=== PATIENT | male | born 1950 | race Caucasian/White ===

== ENCOUNTER → 2020-10-29 11:38 | Outpatient (CLI) | payer MEDICARE, OTHER, SELFPAY ==
[2016-10-31 13:42] VITALS: BMI 30.7
--- NOTE | 2020-10-29 11:48 | RAD_ITS ---
STUDY: X-RAY CHEST REASON FOR EXAM: Male, 69 years old. BRONCHITIS TECHNIQUE: PA and lateral views of the chest. COMPARISON: Comparison is made with prior study dated 03/20/2012. FINDINGS: Hyperinflation. Decreased bronchovascular markings suggestive of a emphysematous change. There is no demonstrated pleural abnormality. Normal size heart. Normal mediastinum and ulises. Normal visualized pulmonary arteries. There is atherosclerotic tortuosity of the aortic arch and descending thoracic aorta. There are diffuse degenerative changes of the visualized thoracic spine. Normal visualized ribs, clavicles, and shoulders. There is no demonstrated abnormality of the visualized soft tissue structures of the upper abdomen. RAD/Chest PA and Lateral IMPRESSION: Hyperinflation. Decreased bilateral bronchovascular markings in keeping with emphysematous changes. Electronically Signed: Serg Miranda MD at 15:20 EST , Service support ,
[2020-10-29 15:08] LABS: Absolute Lymphocyte Count 1.72 X10^3/uL (0.83-4.51); Absolute Neutrophil Count 5.3 X10^3/uL (2.0-7.7); Basophil# 0.04 X10^3/uL; Basophil% 0.5 % (0-1); Eosinophil# 0.13 X10^3/uL; Eosinophils% 1.7 % (0-5); Hematocrit 41.9 % (40-54); Lymphocyte # 1.72 X10^3/ul (4.0); Lymphocyte % 22.1 % (19-41); Mean Corpuscular Hgb 25.9 pg (27.0-32.0); Mean Corpuscular Volume 83.5 fL (80-94); Monocyte# 0.56 X10^3/uL; Monocyte% 7.2 % (0-10); NRBC Flagged by Analyzer 0 % (0-5); Neutrophil # 5.28 X10^3/uL (2.7-7.7); Neutrophil % 67.7 % (47-70); Platelet Count 231 K/mm3 (150-450); RBC Distribution Width SD 42.5 fl (35.1-43.9); Red Blood Count 5.02 M/mm3 (4.6-6.2); White Blood Count 7.8 K/mm3 (4.4-11.0)
[2020-10-29 15:57] LABS: ALB/GLOB Ratio 1.1 RATIO (0.9-2.4); AST(SGOT) 23 U/L (15-37); Alanine Aminotransfer ALT/SGPT 29 U/L (16-61); Albumin, Serum 3.9 g/dL (3.2-5.0); Alkaline Phosphatase 84 U/L (45-117); Anion Gap 7 (5-15); BUN 12 mg/dL (7-18); BUN/Creat Ratio 12.3 RATIO (10-20); Calcium,Total 9.3 mg/dL (8.5-10.1); Chloride 107 mmol/L (98-107); Cholesterol 139 mg/dL (200); Creatinine, Serum 0.98 mg/dL (0.70-1.30); EST Glomerular Filtration Rate 81 mL/min (>60); Est Glom Filt Rate - Afr Amer 97 mL/min (>60); Globulin 3.5 g/dL (2.2-4.2); Glucose 102 mg/dL (74-106); High Density Lipoprotein 59 mg/dL; Potassium 4.2 mmol/L (3.5-5.1); Protein, Total 7.4 g/dL (6.4-8.2); Sodium Level 140 mmol/L (136-145); Triglycerides 64 mg/dL; Very Low Density Lipoprotein 13 mg/dL (5-40)
== END ==
PROVIDERS: PCP Family Medicine; Referring Provider Family Medicine; Visit Provider Family Medicine
DX: J40 Bronchitis, not specified as acute or chronic (principal); J44.9 Chronic obstructive pulmonary disease, unspecified; E66.9 Obesity, unspecified; Z13.1 Encounter for screening for diabetes mellitus
CPT/HCPCS: 36415; 71046; 80053; 80061; 85025

== ENCOUNTER → 2020-12-15 | Outpatient (CLI) | payer MEDICARE, OTHER, SELFPAY ==
[2016-10-31 13:42] VITALS: BMI 30.7
== END | disposition home or self-care (01) ==
LOC: LABSPEC 09:53
PROVIDERS: PCP Family Medicine; Referring Provider Internal Medicine Pulmonary Disease; Visit Provider Internal Medicine Pulmonary Disease
DX: R05 Cough (principal)
CPT/HCPCS: 87070; 87205

== ENCOUNTER → 2021-01-26 16:23 | Outpatient (CLI) | payer MEDICARE, OTHER, SELFPAY ==
--- NOTE | 2021-01-26 16:32 | CT_ITS ---
STUDY: CT CHEST WITHOUT CONTRAST REASON FOR EXAM: Male, 70 years old. COUGH RADIATION DOSAGE (If Supplied By Facility): CTDIvol = ( 18.80 ) mGy, DLP = ( 725.60 ) mGycm TECHNIQUE: Transaxial imaging was performed without the administration of intravenous contrast material. Individualized dose optimization techniques were used for this CT. COMPARISON: None. FINDINGS: Mild sinus changes with some subpleural scarring in the lung bases. Some bibasilar cylindrical bronchiectasis. No noncalcified nodule or mass. There is no demonstrated pleural abnormality. Normal heart and pericardium. Normal mediastinum. Normal hilar regions. Normal unenhanced pulmonary arteries. Normal aorta arch and descending thoracic aorta. Normal osseous structures. There is no demonstrated abnormality of the visualized upper abdomen. CT/Chest without Contrast IMPRESSION: Mild emphysema with scarring and mild cylindrical bronchiectasis but no pneumonia or atelectasis. Electronically Signed: Bruce Blevins MD at 16:53 EDT Tel , Service support ,
== END ==
PROVIDERS: PCP Family Medicine; Referring Provider Internal Medicine Pulmonary Disease; Visit Provider Internal Medicine Pulmonary Disease
DX: R05 Cough (principal)
CPT/HCPCS: 71250

== ENCOUNTER → 2021-02-19 | Outpatient (CLI) | payer MEDICARE, OTHER, SELFPAY | END | disposition home or self-care (01) | LOC: LABSPEC 14:21 | PROVIDERS: PCP Family Medicine; Referring Provider Internal Medicine Pulmonary Disease; Visit Provider Internal Medicine Pulmonary Disease | DX: J47.9 Bronchiectasis, uncomplicated (principal) | CPT/HCPCS: 87070; 87077; 87186; 87205 ==

== ENCOUNTER → 2021-04-14 | Outpatient (CLI) | payer MEDICARE, OTHER, SELFPAY | END | disposition home or self-care (01) | LOC: LABSPEC 17:01 | PROVIDERS: PCP Family Medicine; Visit Provider Internal Medicine Pulmonary Disease | DX: J47.9 Bronchiectasis, uncomplicated (principal) | CPT/HCPCS: 87070; 87077; 87186; 87205 ==

== ENCOUNTER → 2021-05-12 | Outpatient (CLI) | payer MEDICARE, OTHER, SELFPAY | END | disposition home or self-care (01) | LOC: LABSPEC 13:31 | PROVIDERS: PCP Family Medicine; Visit Provider Internal Medicine Pulmonary Disease | DX: J47.9 Bronchiectasis, uncomplicated (principal) | CPT/HCPCS: 87070; 87101; 87205 ==

== ENCOUNTER → 2021-05-31 | Outpatient (CLI) | payer MEDICARE, OTHER, SELFPAY | END | disposition home or self-care (01) | LOC: LABSPEC 17:02 | PROVIDERS: PCP Family Medicine; Referring Provider Family Medicine; Visit Provider Family Medicine | DX: U07.1 COVID-19 (principal) | CPT/HCPCS: 87635; U0005; U0003 ==

== ENCOUNTER 2021-06-02 10:48 | Outpatient (CLI) | payer MEDICARE, OTHER, SELFPAY ==
[2021-06-02 11:04] VITALS: BP 143/77; PULSE 71; RESP 18; TEMP 37.3; O2SAT 97; BMI 31.1
[2021-06-02] MEDS: 0.9% Saline Lock 10 ML Syringe IV (11:11)
[2021-06-02 11:45] VITALS: BP 137/77; PULSE 74; RESP 18; TEMP 37.6; O2SAT 98
[2021-06-02 12:45] VITALS: BP 119/83; PULSE 69; RESP 16; TEMP 38.1; O2SAT 97
== END 2021-06-02 12:45 | disposition home or self-care (01) ==
LOC: MS3OUT 10:49 → MS3 10:49
PROVIDERS: PCP Family Medicine; Referring Provider Nurse Practitioner Adult Health; Visit Provider Nurse Practitioner Adult Health
DX: Z23 Encounter for immunization (principal); U07.1 COVID-19
CPT/HCPCS: J7050; M0243; A4216; Q0244

== ENCOUNTER 2021-06-11 16:45 | Inpatient (IN) | payer MEDICARE, OTHER, SELFPAY ==
[2021-06-11] VITALS (10 sets, daily range): BP systolic 126–171; BP diastolic 92–108; PULSE 72–99; RESP 18–20; TEMP 35.3–36.8; O2SAT 88–96; BMI 32.1; BMI 30.1
[2021-06-11 19:10] LABS: Absolute Lymphocyte Count 1.16 X10^3/uL (0.83-4.51); Absolute Neutrophil Count 5.3 X10^3/uL (2.0-7.7); Basophil# 0.02 X10^3/uL; Basophil% 0.3 % (0-1); Eosinophil# 0.09 X10^3/uL; Eosinophils% 1.2 % (0-5); Hemoglobin 12.6 g/dL (13.0-16.5); Lymphocyte # 1.16 X10^3/ul (0.83-4.51); Lymphocyte % 15.8 % (19-41); Mean Corp Hgb Conc 33.2 g/dL (32-36); Mean Corpuscular Hgb 26.6 pg (27.0-32.0); Mean Corpuscular Volume 80.2 fL (80-94); Mean Platelet Vol. 9.5 fl (6.2-12.0); Monocyte# 0.71 X10^3/uL; Monocyte% 9.7 % (0-10); NRBC Flagged by Analyzer 0 % (0-5); Neutrophil # 5.33 X10^3/uL (2.7-7.7); Neutrophil % 72.5 % (47-70); Platelet Count 253 K/mm3 (150-450); RBC Distribution Width CV 13.3 % (11.6-14.6); RBC Distribution Width SD 38.5 fl (35.1-43.9); Red Blood Count 4.74 M/mm3 (4.6-6.2); White Blood Count 7.4 K/mm3 (4.4-11.0)
--- NOTE | 2021-06-11 19:15 | RAD_ITS ---
STUDY: X-RAY CHEST REASON FOR EXAM: Male, 70 years old. CHEST PAIN cough TECHNIQUE: XR Chest 1 View COMPARISON: 10/29/2020 FINDINGS: There is no demonstrated pleural abnormality. There is bilateral infiltrate. Normal size heart. Normal mediastinum and ulises. Normal visualized pulmonary arteries. There is atherosclerotic calcification of the aortic arch with tortuosity. There are diffuse degenerative changes of the visualized thoracic spine. There is degenerative osteoarthritis of the bilateral shoulders. There is no demonstrated abnormality of the visualized soft tissue structures of the upper abdomen. RAD/Chest 1 View (Portable) IMPRESSION: Bilateral pneumonia. Electronically Signed: Americo Levine MD at 20:22 EDT , Service support ,
[2021-06-11 19:27] LABS: ALB/GLOB Ratio 0.8 RATIO (0.9-2.4); AST(SGOT) 36 U/L (15-37); Alanine Aminotransfer ALT/SGPT 56 U/L (16-61); Albumin, Serum 3.1 g/dL (3.2-5.0); Alkaline Phosphatase 84 U/L (45-117); Anion Gap 6 (5-15); BUN 18 mg/dL (7-18); BUN/Creat Ratio 20.2 RATIO (10-20); Calcium,Total 9.1 mg/dL (8.5-10.1); Chloride 108 mmol/L (98-107); Creatinine, Serum 0.89 mg/dL (0.70-1.30); EST Glomerular Filtration Rate 89 mL/min (>60); Est Glom Filt Rate - Afr Amer 108 mL/min (>60); Estimated Creatinine Clearance 81.08 ml/min; Globulin 3.9 g/dL (2.2-4.2); Glucose 103 mg/dL (74-106); Potassium 3.9 mmol/L (3.5-5.1); Sodium Level 139 mmol/L (136-145); Troponin-I HS 112 pg/mL (3.0-78.0)
[2021-06-11 19:47] LABS: D-Dimer Quantitative (DVT/PE) 15.13 FEU/ug/m (0.27-0.49)
--- NOTE | 2021-06-11 19:47 | EX.ED.DYSGE1 ---
HPI History of Present Illness Chief Complaint: General Illness Narrative Narrative: 70-year-old male presenting with shortness of breath. He is day 14 of COVID-19. He has had a monoclonal antibodies as well. The patient has been experiencing pulse ox is down into the 90s. Patient states initially he was bouncing back right away but over the course of the day he is noted that his pulse ox has been going down to 90 and then staying down. With rest he does recover. Patient has not been on any steroids. Patient denies chest pain. He does admit to a cough and shortness of breath. He no longer has fever, chills, body aches. He does admit to some diarrhea but is sporadic. He denies constipation. No urinary symptoms. [facility] Medical History (Updated 06/11/21 @ 22:[address] Giovanni English MD) Bronchiectasis Home Medications Severe Cold and Flu (PE) 355 ml PO PRN PRN 10/19/16 [History Last Taken Unknown] albuterol sulfate [Proventil HFA] 1 - 2 puff IH DAILY 10/19/16 [History Last Taken Unknown] budesonide-formoterol [Symbicort] 1 puff INHALATION BID 10/19/16 [History Last Taken 10/31/16 07:00] cyanocobalamin (vitamin B-12) 1,000 mcg PO DAILY 10/19/16 [History Last Taken Unknown] aspirin 325 mg PO BIDCM #60 tablet 11/02/16 [Rx Last Taken Unknown] Allergy/AdvReac Type Severity Reaction Status Date / Time gabapentin Allergy Rash Verified 10/19/16 15:09 Family History (Updated 06/11/21 @ 22:[address] Giovanni English MD) Other Colon cancer Heart disease Surgical History History of hip surgery Social History Smoking Status: Former smoker ROS ROS ED Constitutional Constitutional ED: Denies chills or fever(s) Eyes Eyes: Denies blurry vision or diplopia ENT ENT ED: Denies rhinorrhea or sore throat Cardiovascular Cardiovascular: Denies chest pain or palpitations Respiratory/Chest Respiratory/Chest: Reports cough, dyspnea and dyspnea on exertion Gastrointestinal Gastrointestinal: Reports diarrhea; Denies abdominal pain, nausea or vomiting Genitourinary Genitourinary ED: Denies dysuria or hematuria Musculoskeletal Musculoskeletal: Denies arthralgias or myalgias Integumentary Denies Abrasions or rash Neurologic Neurologic: Denies headache(s) or paresthesias EXAM Physical Exam Const Vital Signs: 06/11/21 16:49 06/11/21 16:53 06/11/21 18:50 Temperature 97.7 F L 97.7 F L 97 F L Temperature Source Temporal Temporal Temporal Pulse Rate 99 99 80 Respiratory Rate 18 18 20 H Respiratory Effort Short of Breath Respiratory Pattern Tachypnea Blood Pressure 140/105 H 140/105 H 169/99 H Blood Pressure Mean 116 116 122 Pulse Ox 91 91 94 Oxygen Delivery Method Room Air Room Air Nasal Cannula Oxygen Flow Rate (L/min) 2 06/11/21 19:00 06/11/21 20:20 Temperature 98.2 F Temperature Source Temporal Pulse Rate 72 Respiratory Rate 18 Respiratory Effort Respiratory Pattern Blood Pressure 171/99 H Blood Pressure Mean 123 Pulse Ox 88 93 Oxygen Delivery Method Room Air Nasal Cannula Oxygen Flow Rate (L/min) 2 Positive well nourished General Appearance ED: NAD; Negative for pallor HEENT Negative for trauma Eyes PERRL and EOMs intact bilaterally Neck no lymphadenopathy and supple Resp normal respiratory effort Auscultation: rales diffuse Cardio regular rate and regular rhythm Extremity normal to inspection General Extremety ED: Negative for tenderness Neuro oriented x3 and CN's II-XII intact bilaterally Sensorium / Orientation: alert Psych mental status grossly normal Skin General Skin Exam: Negative for jaundice or pallor MDM MDM MDM Narrative Medical decision making narrative: Patient presenting on day 14 of COVID-19 pneumonia. Patient states that he has been dropping to about 90. He is having difficulty recovering. Today he dropped to 89% on room air. He has not required oxygen previously. Patient states that he does have a lot of dyspnea on exertion but is not complaining of chest pain. EKG on my interpretation shows normal sinus rhythm at a ventricular of 69 bpm without signs of ischemic change. Chest x-ray on my interpretation shows bilateral pneumonia and the radiologist does agree. CBC shows no leukocytosis of his white blood cell count of 7.4. Hemoglobin hematocrit are stable. Platelets 253. Renal function and electrolytes are normal. LFTs are normal. Troponin although not 120 is 112. I obtained a D-dimer which was also 15.13. For this reason he had a CTA of the chest which shows bilateral pulmonary emboli without a saddle embolus. Patient was able to ambulate and not desaturate on oxygen at 2 L but did become symptomatic and was tachycardic into the 120s. Nursing reports that he looked unsteady. I did do a delta troponin and since he has been on oxygen resting it has come down to 99. His BNP is elevated at 146.3. I discussed the case with Dr. Lilly out of concern for heart strain and he did recommend that we at least bring the patient in for an echocardiogram. He was started on Eliquis in the ER. He was given dexamethasone as well. All results and testing were explained to he and his daughter and they are comfortable with being admitted. Impression: 1. History of COVID-19 pneumonitis 2. Bilateral pulmonary emboli 3. Hypoxic respiratory failure Lab Data Labs: Laboratory Results - last 24 hr 06/11/21 06/11/21 06/11/21 18:57 18:57 18:57 WBC 7.4 RBC 4.74 Hgb 12.6 L Hct 38.0 L MCV 80.2 MCH 26.6 L MCHC 33.2 RDW Std Deviation 38.5 RDW Coeff of Farhan 13.3 Plt Count 253 MPV 9.5 Immature Gran % (Auto) 0.500 Neut % (Auto) 72.5 H Lymph % (Auto) 15.8 L [place] % (Auto) 9.7 Eos % (Auto) 1.2 Baso % (Auto) 0.3 Absolute Neuts (auto) 5.3 Absolute Lymphs (auto) 1.16 Nucleated RBC % 0 D-Dimer Quant (PE/DVT) 15.13 H* Sodium 139 Potassium 3.9 Chloride 108 H Carbon Dioxide 25.0 Anion Gap 6 BUN 18 Creatinine 0.89 Estim Creat Clear Calc 81.08 Est GFR (MDRD) Af Amer 108 Est GFR (MDRD) Non-Af 89 BUN/Creatinine Ratio 20.2 H Glucose 103 Calcium 9.1 Total Bilirubin 0.60 AST 36 ALT 56 Alkaline Phosphatase 84 Troponin I High Sens 112 H B-Natriuretic Peptide Total Protein 7.0 Albumin 3.1 L Globulin 3.9 Albumin/Globulin Ratio 0.8 L 06/11/21 06/11/21 18:57 20:45 WBC RBC Hgb Hct MCV MCH MCHC RDW Std Deviation RDW Coeff of Farhan Plt Count MPV Immature Gran % (Auto) Neut % (Auto) Lymph % (Auto) [place] % (Auto) Eos % (Auto) Baso % (Auto) Absolute Neuts (auto) Absolute Lymphs (auto) Nucleated RBC % D-Dimer Quant (PE/DVT) Sodium Potassium Chloride Carbon Dioxide Anion Gap BUN Creatinine Estim Creat Clear Calc Est GFR (MDRD) Af Amer Est GFR (MDRD) Non-Af BUN/Creatinine Ratio Glucose Calcium Total Bilirubin AST ALT Alkaline Phosphatase Troponin I High Sens 99 H B-Natriuretic Peptide 146.3 H Total Protein Albumin Globulin Albumin/Globulin Ratio Radiography Diagnostic Testing: Clinical Impression(s) from Imaging Studies Chest X-Ray 06/11/21 19:15 IMPRESSION: Bilateral pneumonia. Electronically Signed: Americo Levine MD at 20:22 EDT , Service support , Chest CTA 06/11/21 20:00 IMPRESSION: 1. Bilateral pulmonary emboli. There is no saddle embolus. 2. Bilateral pneumonia. CF called. Electronically Signed: Americo Levine MD at 20:22 EDT , Service support , ADDENDUM: 06/11/212036 IMPRESSION: 1. Bilateral pulmonary emboli. There is no saddle embolus. 2. Bilateral pneumonia. CF called. N.B. : The above Results were Read Back by Americo Levine MD to Dr. Saurav MD, and understanding confirmed on 06/11/2021 20:30:12 (ET). Electronically Signed: Americo Levine MD at 20:22 EDT , Service support , Discharge Plan Disposition Disposition: Acute Care Hospital [facility] Discharge Date/Time: 06/11/21 22:42
--- NOTE | 2021-06-11 20:00 | CT_ITS ---
EXAM: CT ANGIOGRAPHY CHEST WITHOUT AND WITH INTRAVENOUS CONTRAST CLINICAL INDICATION: hypoxia TECHNIQUE: Helically acquired angiography images were obtained of the chest without and with intravenous contrast. This CT exam was performed using one or more of the following dose reduction techniques: automated exposure control, adjustment of the mA and/or kV according to patient size, and/or use of iterative reconstruction technique. This report was created using [employer] report generation technology. MIP reconstructed images were created and reviewed. CONTRAST: IV 100mL [id number] COMPARISON: 01/26/2021. FINDINGS: PULMONARY ARTERIES: Bilateral pulmonary emboli. There is no saddle embolus. Normal in caliber. AORTA: There are thoracic aortic calcifications consistent for atherosclerotic disease. There is no dissection or hematoma noted in the thoracic aorta. . GREAT VESSELS OF AORTIC ARCH: Unremarkable. Normal in caliber. No evidence of dissection. LUNGS AND PLEURAL SPACES: Bilateral pneumonia. No mass. No pleural effusion or thickening. HEART: No heart strain. No pericardial effusion. MEDIASTINUM: Unremarkable. No mediastinal or hilar adenopathy. Esophagus is unremarkable. No hiatal hernia. THYROID: Unremarkable. No thyroid lesions. BONES/JOINTS: Unremarkable. No suspicious lytic or blastic abnormality. CT/CTA Chest W/WO Contrast IMPRESSION: 1. Bilateral pulmonary emboli. There is no saddle embolus. 2. Bilateral pneumonia. CF called. Electronically Signed: Americo Levine MD at 20:22 EDT , Service support ,
[2021-06-11 20:15] LABS: BNP,B-Type NATRIURETIC PEPTIDE 146.3 pg/mL (0-100)
[2021-06-11] MEDS: dexAMETHasone 10 MG/ML Vial 6 MG IV (20:20)
[2021-06-11 21:10] LABS: Troponin-I HS 99 pg/mL (3.0-78.0)
--- NOTE | 2021-06-11 21:23 | EKG12_ITS ---
Test Reason : GEN ILLNESS Blood Pressure : / mmHG Vent. Rate : 069 BPM Atrial Rate : 069 BPM P-R Int : 140 ms QRS Dur : 088 ms QT Int : 420 ms P-R-T Axes : 030 000 062 degrees QTc Int : 450 ms Normal sinus rhythm with sinus arrhythmia Normal ECG Confirmed by BARRY YOUNG, PRANAY ([id number]), fan mail editor VIDA FLOWERS ([id number]) on 06/15/2021 8:40:23 AM Referred By: CLINT Confirmed By:PRANAY REDDY MD
--- NOTE | 2021-06-11 21:36 | HP.PCM.HOS_ITS ---
HPI - General General Date of Admission: 06/11/21 HPI Narrative AIRAM ALICEA, is a 70 M with a significant history of bronchiectasis who presents with a 13-day history of progressively worsening shortness of breath. Patient was diagnosed with Covid outpatient and received a monoclonal an tibodies. He reports dry cough occasionally productive for clear and yellow sputum. His appetite is normal. He reports diarrhea. He denies muscle aches. He had dysgeusia and anosmia which has improved. He denies any nausea or vomiting. [facility] Medical History Bronchiectasis Home Medications Severe Cold and Flu (PE) 355 ml PO PRN PRN 10/19/16 [History Last Taken Unknown] albuterol sulfate [Proventil HFA] 1 - 2 puff IH DAILY 10/19/16 [History Last T aken Unknown] budesonide-formoterol [Symbicort] 1 puff INHALATION BID 10/19/16 [History Last Taken 10/31/16 07:00] cyanocobalamin (vitamin B-12) 1,000 mcg PO DAILY 10/19/16 [History Last Taken Unknown] aspirin 325 mg PO BIDCM #60 tablet 11/02/16 [Rx Last Taken Unknown] pantoprazole 40 mg PO DAILY 06/12/21 [History Last Taken Unknown] tamsulosin 0.4 mg PO QHS PRN PRN 06/12/21 [History Last Taken Unknown] Allergy/AdvReac Type Severity Reaction Status Date / Time gabapentin Allergy Rash Verified 10/19/16 15:09 Family History Other Colon cancer Heart disease Surgical History History of hip surgery Social History Smoking Status: Former smoker ROS ROS Narrative Pertinent positives and pertinent negatives as noted in HPI. All other systems were reviewed and are negative. Vital Signs Vital Signs Vital Signs: 06/11/21 16:49 06/11/21 16:53 06/11/21 18:50 Temperature 97.7 F L 97.7 F L 97 F L Temperature Source Temporal Temporal Temporal Pulse Rate 99 99 80 Respiratory Rate 18 18 20 H Respiratory Effort Short of Breath Respiratory Pattern Tachypnea Blood Pressure 140/105 H 140/105 H 169/99 H Blood Pressure Mean 116 116 122 Pulse Ox 91 91 94 Oxygen Delivery Method Room Air Room Air Nasal Cannula Oxygen Flow Rate (L/min) 2 06/11/21 19:00 06/11/21 20:20 Temperature 98.2 F Temperature Source Temporal Pulse Rate 72 Respiratory Rate 18 Respiratory Effort Respiratory Pattern Blood Pressure 171/99 H Blood Pressure Mean 123 Pulse Ox 88 93 Oxygen Delivery Method Room Air Nasal Cannula Oxygen Flow Rate (L/min) 2 Weight Weight: 104.54 kg Body Mass Index (BMI) 32.1 Physical Exam Narrative Physical exam: General: Well-nourished, well-developed. Head: Normocephalic, atraumatic, no tenderness Eyes: PERRLA, EOMI ENT, no trauma, moist mucous membranes, no rhinorrhea Neck: Nontender, full range of motion, no spinal tenderness, deformities, step- off CVS: Regular rate and rhythm. S1-S2 present. No murmur, gallop or rub. Respiratory : Mild rhonchi, chest wall nontender, no wheezing Abdomen: Soft, nontender, nondistended, normal bowel sounds, no masses : Deferred Back: Nontender, no CVA tenderness, no midline spinal tenderness, deformities, step-offs Extremities: Nontender full range of motion, no trauma Skin: Normal color, no trauma, abrasions Neuro: Alert, oriented, cranial nerves II through XII grossly intact. Psychiatry: Normal mood. Normal affect. Not depressed. Not anxious. Results Lab / Micro Data Result Diagrams: 06/11/21 18:57 06/11/21 18:57 Labs: Laboratory Results - last 24 hr 06/11/21 18:57: WBC 7.4, RBC 4.74, Hgb 12.6 L, Hct 38.0 L, MCV 80.2, MCH 26.6 L, MCHC 33.2, RDW Std Deviation 38.5, RDW Coeff of Farhan 13.3, Plt Count 253, MPV 9.5, Immature Gran % (Auto) 0.500, Neut % (Auto) 72.5 H, Lymph % (Auto) 15.8 L, [place] % (Auto) 9.7, Eos % (Auto) 1.2, Baso % (Auto) 0.3, Absolute Neuts (auto) 5.3, Absolute Lymphs (auto) 1.16, Nucleated RBC % 0 06/11/21 18:57: D-Dimer Quant (PE/DVT) 15.13 H* 06/11/21 18:57: Sodium 139, Potassium 3.9, Chloride 108 H, Carbon Dioxide 25.0, Anion Gap 6, BUN 18, Creatinine 0.89, Estim Creat Clear Calc 81.08, Est GFR (MDRD) Af Amer 108, Est GFR (MDRD) Non-Af 89, BUN/Creatinine Ratio 20.2 H, Glucose 103, Calcium 9.1, Total Bilirubin 0.60, AST 36, ALT 56, Alkaline Phosphatase 84, Troponin I High Sens 112 H, Total Protein 7.0, Albumin 3.1 L, Globulin 3.9, Albumin/Globulin Ratio 0.8 L 06/11/21 18:57: B-Natriuretic Peptide 146.3 H 06/11/21 20:45: Troponin I High Sens 99 H Radiology Impression Chest X-Ray 06/11/21 19:15 IMPRESSION: Bilateral pneumonia. Electronically Signed: Americo Levine MD at 20:22 EDT , Service support , Chest CTA 06/11/21 20:00 IMPRESSION: 1. Bilateral pulmonary emboli. There is no saddle embolus. 2. Bilateral pneumonia. CF called. Electronically Signed: Americo Levine MD at 20:22 EDT , Service support , ADDENDUM: 06/11/212036 IMPRESSION: 1. Bilateral pulmonary emboli. There is no saddle embolus. 2. Bilateral pneumonia. CF called. N.B. : The above Results were Read Back by Americo Levine MD to Dr. Saurav MD, and understanding confirmed on 06/11/2021 20:30:12 (ET). Electronically Signed: Americo Levine MD at 20:22 EDT , Service support , Assessment & Plan Assessment/Plan (1) Bilateral pulmonary embolism: (2) COVID-19: PLAN: Acute hypoxemic respiratory failure Oxygen saturation of 88% on room air requiring supplemental oxygen. Suppleme ntal oxygen continued. Likely secondary to bilateral PE and Covid pneumonia. Treatment of bilateral PE and Covid pneumonia as below Bilateral PE D-dimer was 15.13. Chest x-ray and chest CTA was independently interpreted and agree radiologist interpretation above. High sensitive troponin was high normal considering upper limits of 120. Has a troponin was 112 and 99. BNP was 146.3. Emergency plan doctor discussed the case with cardiology who recommended that patient stays for an echocardiogram to rule out right ventricular strain. Echocardiogram ordered. Discussed emergent department doctor who started patient on Eliquis. Eliquis continued. COVID-19 pneumonia Patient's shortness of breath could be due to PE. COVID-19 could also contribute. Review of labs showed normal white counts with neutrophilia and lymphopenia. Check procalcitonin. Decadron ordered. Outside window of remdesivir DVT prophylaxis: Not indicated since patient has acute PE and is getting Eliquis. Charges/Coding Visit Charges OBSV E&M: 07202 Initial observation care L3
[2021-06-11] MEDS: APIXABAN 5 MG TABLET 10 MG PO (22:04)
--- NOTE | 2021-06-11 22:54 | ECHOD_ITS ---
Reason For Study: EMBOLI Procedure This was a 2D Doppler, Color Flow transthoracic echocardiogram. Limited views were obtained. Exam performed portable in patient room. The exam was abbreviated due to the COVID 19 protocol. Left Ventricle Normal left ventricle. The estimated ejection fraction is EF 55-60 %. Right Ventricle Normal right ventricle. Normal systolic function. Atria The left atrium is mildly enlarged. Normal right atrium. Mitral Valve The mitral valve is structurally normal. No prolapse or stenosis seen. Mild (1+) mitral valve insufficiency. Tricuspid Valve Normal tricuspid valve. Mild to moderate (1-2+) tricuspid valve insufficiency. Aortic Valve Normal aortic valve. Pulmonic Valve The pulmonic valve is not well visualized. Great Vessels Normal aortic root. Pericardium/Pleural No pericardial effusion. MMode/2D Measurements & Calculations LVIDd: 5.9 cm IVSd: 0.97 cm LAV(MOD-bp): 69.5 ml LVIDs: 4.2 cm LVPWd: 1.0 cm LAV(MOD-bp) Indexed: 31.9 ml/m2 RVDd: 4.1 cm FS: 27.7 % LAV(MOD-sp2): 66.9 ml LAV(MOD-sp4): 67.8 ml SV(MOD-sp4): 70.2 ml LVAd ap4: 37.0 cm2 LVAd ap2: 35.6 cm2 LVLd ap4: 8.7 cm LVLd ap2: 9.7 cm EDV(MOD-sp4): 129.0 ml EDV(MOD-sp2): 117.6 ml EDV(sp4-el): 133.5 ml EDV(sp2-el): 111.0 ml LVAs ap4: 21.1 cm2 LVAs ap2: 22.6 cm2 LVLs ap4: 6.7 cm LVLs ap2: 7.9 cm ESV(MOD-sp4): 58.9 ml ESV(MOD-sp2): 61.0 ml ESV(sp4-el): 56.4 ml ESV(sp2-el): 55.1 ml EF(MOD-sp4): 54.4 % EF(MOD-sp2): 48.1 % EF(sp4-el): 57.7 % SV(MOD-sp2): 56.6 ml SV(sp4-el): 77.1 ml LA A4 area: 22.2 cm2 RA A4 area: 20.8 cm2 Doppler Measurements & Calculations TR max rahul: 461.5 cm/sec TR max P.2 mmHg ECHO/Echo Complete Interpretation Summary Normal LV systolic function The estimated ejection fraction is EF 55-60 %. Mild MR Mild -Mpderate TR Ordering Physician: Giovanni English Referring Physician: DESIRAE HOOK Performed By: Dalia Beyer, ALYSSIA, RVT
--- NOTE | 2021-06-11 23:04 | PCS.PANDOC ---
PANDEMIC DOCUMENTATION INITIATED: Date: 04/12/2021 Time: 190
[2021-06-11] MEDS: 0.9% Saline Lock 10 ML Syringe IV (23:23)
[2021-06-11] MEDS: Fluticasone/Salmeterol 232-14 Inhaler 1 PUFF INHALATION (23:48)
[2021-06-12] VITALS (12 sets, daily range): BP systolic 129–191; BP diastolic 66–94; PULSE 61–86; RESP 16–20; TEMP 36–36.8; O2SAT 92–95
--- NOTE | 2021-06-12 00:17 | NURSING ---
Updated pt's , her number is in the chart. Please call with any questions or updates.
[2021-06-12] MEDS: MELATONIN 3 MG TABLET PO (00:26)
[2021-06-12 01:35] LABS: Troponin-I HS 72 pg/mL (3.0-78.0)
[2021-06-12] MEDS: BENZOCAINE/MENTHOL 1 LOZENGE MUCOUS MEM (06:26)
[2021-06-12 07:42] LABS: Absolute Lymphocyte Count 1.01 X10^3/uL (0.83-4.51); Absolute Neutrophil Count 5.5 X10^3/uL (2.0-7.7); Basophil# 0.02 X10^3/uL; Basophil% 0.3 % (0-1); Hemoglobin 12.2 g/dL (13.0-16.5); Lymphocyte # 1.01 X10^3/ul (0.83-4.51); Lymphocyte % 14.2 % (19-41); Mean Corp Hgb Conc 32.1 g/dL (32-36); Mean Corpuscular Hgb 25.8 pg (27.0-32.0); Mean Corpuscular Volume 80.5 fL (80-94); Mean Platelet Vol. 9.9 fl (6.2-12.0); Monocyte# 0.55 X10^3/uL; Monocyte% 7.7 % (0-10); NRBC Flagged by Analyzer 0 % (0-5); Neutrophil % 77.1 % (47-70); Platelet Count 276 K/mm3 (150-450); RBC Distribution Width CV 13.1 % (11.6-14.6); RBC Distribution Width SD 37.7 fl (35.1-43.9); Red Blood Count 4.72 M/mm3 (4.6-6.2); White Blood Count 7.1 K/mm3 (4.4-11.0)
[2021-06-12 08:05] LABS: Anion Gap 9 (5-15); BUN 17 mg/dL (7-18); BUN/Creat Ratio 17.1 RATIO (10-20); Chloride 107 mmol/L (98-107); EST Glomerular Filtration Rate 79 mL/min (>60); Est Glom Filt Rate - Afr Amer 95 mL/min (>60); Estimated Creatinine Clearance 72.16 ml/min; Glucose 148 mg/dL (74-106); Potassium 4.1 mmol/L (3.5-5.1); Sodium Level 140 mmol/L (136-145)
[2021-06-12 08:38] LABS: Procalcitonin < 0.04 ng/mL (0.00-0.09)
[2021-06-12] MEDS: APIXABAN 5 MG TABLET 10 MG PO ×2 (09:42→21:05)
[2021-06-12] MEDS: Pantoprazole Sodium 40 MG Tablet PO (09:43)
[2021-06-12] MEDS: dexAMETHasone 2 MG TABLET 6 MG PO (09:43)
[2021-06-12] MEDS: Fluticasone/Salmeterol 232-14 Inhaler 1 PUFF INHALATION ×2 (09:46→21:05)
--- NOTE | 2021-06-12 12:58 | CASEMGMT ---
RN CINTHYA Assessment: Face to Face with pt for initial transition planning/care coordination assessment. RN CM introduced self and role at [facility], pt voices understanding and consents to assessment. Pt is A/O x4 and answers all questions appropriately at this time. Pt sitting up in chair eating lunch at this time with O2 on in no distress. Care providers, pharmacy, and demographics verified/updated. Admitting Dx: Bilat PE, COVID 19 PNA PCP:[facility], pt states his Dr left and he has not seen Dr. Juan yet but was an established patient in this office. Specialists: lucila Latham Preferred Pharmacy: [place] or [facility] for local Insurance: [employer] Prescription Benefit: No, discussed with patient that he will be on Eliquis and this RN CM can provide him with a savings card. Pt states he prefers to be on a medication that is not expensive. Made aware this RN CM will discuss with hospitalist. Spoke with Dr. Curran, he plans to send pt home on Eliquis and states his PCP may change. Provided Ravin an Eliquis savings card to give to patient. LW/HPOA: Pt states he has a LW/DPOA and his DPOA is his Anette Singleton. LNOK: Anette Singleton, Living Arrangements: Pt lives with in a single story house with no steps to enter. Pt reports being I in ADL's and denies concerns at home. Transportation: Pt drives self and denies concerns with transportation. DME/HHC/SNF: Pt has a pulse ox, shower seat, cane and walker at home. Pt denies having any hx of HHC or SNF stays. Pt states he was first tested for COVID at [facility]. He is able to quarantine at home with family providing groceries and supplies. Discussed the possibility of needing home O2. Provided pt with a list of local in network O2 companies, pt chose [employer]. Green sheet on chart for O2. Pt states no concerns with going home at time of dc. Pt states no further concerns/needs. CM to follow. Advised pt to ask CM if any further question/concerns/needs arise, voices understanding. Pt Goal: Home Plan: Home
--- NOTE | 2021-06-12 18:41 | PN.HOSP_ITS ---
Subjective Subjective Patient was seen and examined today, he required O2 on ambulation today, patient had no complaints of shortness of breath or chest discomfort today. Echocardiogram showed a normal ejection fraction Objective Data Objective Data Vital Signs: Vital Signs Temp Pulse Resp BP Pulse Ox 96.8 F L 84 16 163/90 H 92 06/12/21 14:37 06/12/21 14:52 06/12/21 14:37 06/12/21 14:37 06/12/21 14:37 Oxygen Flow Rate (L/min) 2 Oxygen Delivery Method Room Air Weight: 98 kg Body Mass Index (BMI) 30.1 Intake & Output: Intake and Output for Last 24 Hours 06/10/21 06/11/21 06/12/21 23:59 23:59 23:59 Intake Total 960 / 960 Output Total 500 / 500 Balance 460 / 460 Lab / Micro Data Result Diagrams: 06/12/21 07:00 06/12/21 07:00 Labs: Laboratory Results - last 24 hr 06/11/21 18:57: WBC 7.4, RBC 4.74, Hgb 12.6 L, Hct 38.0 L, MCV 80.2, MCH 26.6 L, MCHC 33.2, RDW Std Deviation 38.5, RDW Coeff of Farhan 13.3, Plt Count 253, MPV 9.5, Immature Gran % (Auto) 0.500, Neut % (Auto) 72.5 H, Lymph % (Auto) 15.8 L, [place] % (Auto) 9.7, Eos % (Auto) 1.2, Baso % (Auto) 0.3, Absolute Neuts (auto) 5.3, Absolute Lymphs (auto) 1.16, Nucleated RBC % 0 06/11/21 18:57: D-Dimer Quant (PE/DVT) 15.13 H* 06/11/21 18:57: Sodium 139, Potassium 3.9, Chloride 108 H, Carbon Dioxide 25.0, Anion Gap 6, BUN 18, Creatinine 0.89, Estim Creat Clear Calc 81.08, Est GFR (MDRD) Af Amer 108, Est GFR (MDRD) Non-Af 89, BUN/Creatinine Ratio 20.2 H, Glucose 103, Calcium 9.1, Total Bilirubin 0.60, AST 36, ALT 56, Alkaline Phosphatase 84, Troponin I High Sens 112 H, Total Protein 7.0, Albumin 3.1 L, Globulin 3.9, Albumin/Globulin Ratio 0.8 L 06/11/21 18:57: B-Natriuretic Peptide 146.3 H 06/11/21 20:45: Troponin I High Sens 99 H 06/12/21 00:42: Troponin I High Sens 72 06/12/21 07:00: WBC 7.1, RBC 4.72, Hgb 12.2 L, Hct 38.0 L, MCV 80.5, MCH 25.8 L, MCHC 32.1, RDW Std Deviation 37.7, RDW Coeff of Farhan 13.1, Plt Count 276, MPV 9.9, Immature Gran % (Auto) 0.700, Neut % (Auto) 77.1 H, Lymph % (Auto) 14.2 L, [place] % (Auto) 7.7, Eos % (Auto) 0.0, Baso % (Auto) 0.3, Absolute Neuts (auto) 5.5, Absolute Lymphs (auto) 1.01, Nucleated RBC % 0 06/12/21 07:00: Sodium 140, Potassium 4.1, Chloride 107, Carbon Dioxide 24.0, Anion Gap 9, BUN 17, Creatinine 1.00, Estim Creat Clear Calc 72.16, Est GFR (MDRD) Af Amer 95, Est GFR (MDRD) Non-Af 79, BUN/Creatinine Ratio 17.1, Glucose 148 H, Calcium 9.0 06/12/21 07:00: Procalcitonin < 0.04 Radiography Diagnostic Testing: Radiology Impression Chest X-Ray 06/11/21 19:15 IMPRESSION: Bilateral pneumonia. Electronically Signed: Americo Levine MD at 20:22 EDT , Service support , Chest CTA 06/11/21 20:00 IMPRESSION: 1. Bilateral pulmonary emboli. There is no saddle embolus. 2. Bilateral pneumonia. CF called. Electronically Signed: Americo Levine MD at 20:22 EDT , Service support , ADDENDUM: 06/11/212036 IMPRESSION: 1. Bilateral pulmonary emboli. There is no saddle embolus. 2. Bilateral pneumonia. CF called. N.B. : The above Results were Read Back by Americo Levine MD to Dr. Saurav MD, and understanding confirmed on 06/11/2021 20:30:12 (ET). Electronically Signed: Americo Levine MD at 20:22 EDT , Service support , Echocardiogram 06/11/21 22:54 Interpretation Summary Normal LV systolic function The estimated ejection fraction is EF 55-60 %. Mild MR Mild -Mpderate TR Ordering Physician: Giovanni English Referring Physician: DESIRAE HOOK Performed By: Dalia Beyer, ALYSSIA, RVT Physical Exam Const alert, oriented x3, no apparent distress and healthy appearing General Appearance: cooperative, well kempt and well developed Orientation / Consciousness: awake, oriented to person, oriented to place and oriented to time HEENT normocephalic, head/scalp atraumatic and moist oral mucous membranes Head and Scalp: normocephalic Eyes PERRL, EOMs intact bilaterally and conjunctivae normal Neck nuchal rigidity, supple, no JVD, thyroid normal and no carotid bruits General: trachea midline Resp normal respiratory effort, no retractions, no use of accessory muscles and clear to auscultation bilaterally Auscultation: Negative for rales, rhonchi or wheezes Cardio regular rate, regular rhythm, S1 normal heart sound, S2 normal heart sound, no murmurs, no rub and no gallops GI normal to inspection, nondistended, normoactive bowel sounds, soft to palpation, non-tender and non-distended Extremity no clubbing, cyanosis or edema Skin no rashes or lesions noted General Skin Exam: no breakdown Neuro oriented x3, CN's II-XII intact bilaterally, no focal motor deficits and no sensory deficits noted Sensorium / Orientation: awake and alert Speech: speech normal Psych thought process normal and affect normal Assessment & Plan Assessment/Plan (1) Bilateral pulmonary embolism: PLAN: 1. COVID-19 pneumonia-patient will be treated with IV Decadron #2 bilateral pulmonary emboli secondary to [id number] is currently on Eliquis #3 acute hypoxic respiratory failure secondary to COVID-19 and bilateral pulmonary emboli-pulse ox will be monitored, patient may need supplemental oxygen at the time of discharge from the hospital. #4 BPH Charges/Coding Visit Charges Inpatient E&M: 00153 Subs Hosp L2
[2021-06-12] MEDS: hydrALAZINE 20 MG/ML Vial 5 MG IV (22:47)
[2021-06-12] MEDS: 0.9% Saline Lock 10 ML Syringe IV (22:47)
[2021-06-13] VITALS (7 sets, daily range): BP systolic 140–153; BP diastolic 72–84; PULSE 52–80; RESP 18–20; TEMP 36.1–36.8; O2SAT 90–97
[2021-06-13] MEDS: BENZOCAINE/MENTHOL 1 LOZENGE MUCOUS MEM (06:00)
[2021-06-13] MEDS: dexAMETHasone 2 MG TABLET 6 MG PO (09:20)
[2021-06-13] MEDS: APIXABAN 5 MG TABLET 10 MG PO (09:20)
[2021-06-13] MEDS: Pantoprazole Sodium 40 MG Tablet PO (09:20)
[2021-06-13] MEDS: Fluticasone/Salmeterol 232-14 Inhaler 1 PUFF INHALATION (09:21)
--- NOTE | 2021-06-13 09:39 | PCM.DC ---
Discharge Instructions Diet Discharge Diet: No restrictions Activity Weight Bearing Status: Full weight bearing Follow Up Care Test Results: Test results from this visit will be discussed in further detail at your follow-up appointment, if applicable. Discharge Plan Admission Admit Date/Time: 06/12/21 10:58 Primary Reason for Your Visit: pulmonary embolism Attending Provider: Ata Curran Primary Care Provider: Oren Juan Instructions Additional Instructions / Restrictions: Do not take ibuprofen or Aleve while on Eliquis, take only Tylenol for pain Quarantine until June 20, 2021 Discharge Orders/Prescriptions Prescriptions: New Eliquis 5 mg Tablet 10 mg PO BID Qty: 63 RF: 0 dexamethasone 2 mg tablet 6 mg PO DAILY Qty: 24 RF: 0 Continued cyanocobalamin (vitamin B-12) 1,000 MCG tablet 1,000 mcg PO DAILY RF: 0 albuterol sulfate [Proventil HFA] 6.7 GM HFA aerosol inhaler 1 - 2 puff IH DAILY RF: 0 Severe Cold and Flu (PE) 355 ML liquid 355 ml PO PRN PRN (Reason: Cold Symptons) RF: 0 budesonide-formoterol [Symbicort] 1 INHALER inhaler 1 puff inhalation BID RF: 0 pantoprazole 40 mg Tablet,Delayed Release (Dr/Ec) 40 mg PO DAILY RF: 0 tamsulosin 0.4 mg Capsule 0.4 mg PO QHS PRN PRN (Reason: Urinary Retention) RF: 0 Discontinued aspirin 325 MG tablet 325 mg PO BIDCM Qty: 60 RF: 0 Referrals / Follow Up: Oren Juan MD [Primary Care Provider] - [facility] [STAFF PHYSICIAN] - Within 2 Weeks (after quarantine is over) Disposition Disposition (needs filled in before D/C Order can be placed): Home, Self Care
--- NOTE | 2021-06-13 19:13 | DS.PCM_ITS ---
Providers Date of Admission: 06/12/21 Date of Discharge: 06/13/21 Primary Care Physician: Dr. Oren Juan MD Reason For Visit: BILATERAL PE, COVID 19 PNEUMONIA Diagnosis Discharge Diagnosis (1) Bilateral pulmonary embolism: Status: Acute Code(s): I26.99 - Other pulmonary embolism without acute cor pulmonale Plan: Final diagnosis: #1 COVID-19 pneumonia #2 bilateral pulmonary emboli secondary to COVID-19 pneumonia #3 acute hypoxic respiratory failure secondary to COVID-19 bilateral pulmonary emboli #4 benign prostatic hypertrophy Medications at Discharge Home Medications Severe Cold and Flu (PE) 355 ml PO PRN PRN 10/19/16 albuterol sulfate [Proventil HFA] 1 - 2 puff IH DAILY 10/19/16 budesonide-formoterol [Symbicort] 1 puff INHALATION BID 10/19/16 cyanocobalamin (vitamin B-12) 1,000 mcg PO DAILY 10/19/16 pantoprazole 40 mg PO DAILY 06/12/21 tamsulosin 0.4 mg PO QHS PRN PRN 06/12/21 apixaban [Eliquis] 10 mg PO BID #63 tab 06/13/21 dexamethasone 6 mg PO DAILY #24 tab 06/13/21 Hospital Course Operations None Procedures 2-D Echocardiogram Summary of Care Provided Minutes Spent on Discharge: 31 Hospital Course: 70-year-old white male presented to the emergency room with a chief complaint of shortness of breath. He had been diagnosed with COVID-19 which had started approximately 14 days prior, patient had been given monoclonal antibodies as an outpatient. Patient was evaluated and found to be hypoxic, he required supplemental oxygen, he underwent a CT of the chest which showed bilateral pulmonary emboli. Patient was started on Eliquis in the emergency room when he was given IV dexamethasone, patient was admitted to PCU, he had an echocardiogram performed which showed a normal ejection fraction. On 06/13/2021, patient was seen and examined: On examination he appeared in good health and spirits. Vital signs as documented. Skin warm and dry and without overt rashes. Neck without JVD, neck was supple, trachea midline, thyroid was normal. Lungs clear bilaterally, normal air movement was noted. Heart exam notable for regular rhythm, normal sounds and absence of murmurs, rubs or gallops. Abdomen unremarkable and without evidence of organomegaly, masses, or abdominal aortic enlargement. Bowel sounds are present, abdomen is not distended. Extremities nonedematous, no cyanosis was noted, no clubbing was noted. Neuro: Cranial nerves II through XII are grossly intact, no focal motor deficits were noted, sensation to light touch and pinprick intact, motor exam 5/5 throughout. Psych: Patient is alert and oriented x3, he does not appear anxious or depressed, he does not appear agitated. Patient did not require supplemental oxygen on the day of discharge, he was discharged on 06/13/2021 in stable condition Weight / BMI Weight Weight: 98 kg Body Mass Index (BMI) 30.1 ABG / Lab / Microbiology Data Result Diagrams: 06/12/21 07:00 06/12/21 07:00 D/C Instructions Discharge Diet: No restrictions Weight Bearing Status: Full weight bearing Meaningful Use Info Meaningful Use Diagnoses (Choose all that apply): VTE VTE Anticoag overlap given w/in hospital stay or rx'd at dc?: No Pt receive overlap for 5 days?: No Reason overlap not ordered, prescribed, or given for 5 days: Treatment Not Indicated Discharge Plan Admission Admit Date/Time: 06/12/21 10:58 Primary Reason for Your Visit: pulmonary embolism Attending Provider: Ata Curran Primary Care Provider: Oren Juan Instructions Additional Instructions / Restrictions: Do not take ibuprofen or Aleve while on Eliquis, take only Tylenol for pain Quarantine until June 20, 2021 Discharge Orders/Prescriptions Prescriptions: New Eliquis 5 mg Tablet 10 mg PO BID Qty: 63 RF: 0 dexamethasone 2 mg tablet 6 mg PO DAILY Qty: 24 RF: 0 Continued cyanocobalamin (vitamin B-12) 1,000 MCG tablet 1,000 mcg PO DAILY RF: 0 albuterol sulfate [Proventil HFA] 6.7 GM HFA aerosol inhaler 1 - 2 puff IH DAILY RF: 0 Severe Cold and Flu (PE) 355 ML liquid 355 ml PO PRN PRN (Reason: Cold Symptons) RF: 0 budesonide-formoterol [Symbicort] 1 INHALER inhaler 1 puff inhalation BID RF: 0 pantoprazole 40 mg Tablet,Delayed Release (Dr/Ec) 40 mg PO DAILY RF: 0 tamsulosin 0.4 mg Capsule 0.4 mg PO QHS PRN PRN (Reason: Urinary Retention) RF: 0 Discontinued aspirin 325 MG tablet 325 mg PO BIDCM Qty: 60 RF: 0 Referrals / Follow Up: Oren Juan MD [Primary Care Provider] - [facility],[place] [STAFF PHYSICIAN] - Within 2 Weeks (after quarantine is over) Disposition Disposition (needs filled in before D/C Order can be placed): Home, Self Care Charges/Coding Visit Charges Inpatient E&M: 45526 Disch Hosp
--- NOTE | 2021-06-14 13:54 | CASEMGMT ---
JOVANI MENDES Discharge Follow-up Phone Call: LEEANN: 9 Strata: 2 Call Date: 06/14/21 Discharge Date: 06/13/21 Time of Call: 1355 Duration: 1 min Admitting Diagnosis: covid JOVANI MENDES attempted to complete follow-up phone call after recent hospitalization. No answer, voice message left with return contact information.
== END 2021-06-13 14:09 | disposition home or self-care (01) | DRG 177 ==
LOC: ED 21:30 → PCU 21:38
PROVIDERS: Admitting Provider Hospitalist; Emergency Provider Student in an Organized Health Care Education/Training Program; PCP Family Medicine; Visit Provider Internal Medicine
DX: U07.1 COVID-19 (principal); J12.82 Pneumonia due to coronavirus disease 2019; I26.99 Other pulmonary embolism without acute cor pulmonale; J96.01 Acute respiratory failure with hypoxia; J47.0 Bronchiectasis with acute lower respiratory infection; N40.0 Benign prostatic hyperplasia without lower urinary tract symptoms; Z87.891 Personal history of nicotine dependence
CPT/HCPCS: 36415; 71045; 71275; 80048; 80053; 83880; 84145; 84484; 85025; 85379; 93005; 93306; 97161; 97165; 97802; 99251; 99285; Q9967; A4216; G0463

== ENCOUNTER → 2021-07-09 07:38 | Outpatient (CLI) | payer MEDICARE, OTHER, SELFPAY ==
--- NOTE | 2021-07-09 07:40 | VDLE_ITS ---
Reason For Study: DYSPNEA RIGHT LEFT GSV is normal. GSV is normal. CFV is compressible, spontaneous, phasic, CFV is compressible, spontaneous, phasic, competent and demonstrates normal competent, and demonstrates normal augmentation. augmentation. POP V is compressible, spontaneous, phasic, FV is compressible, spontaneous, phasic, competent and demonstrates normal competent and demonstrates normal augmentation. augmentation. T/P Trunk is compressible. POP V is compressible, spontaneous, phasic, RT PerV is compressible. competent and demonstrates normal RT FV is partially compressible at the augmentation. proximal portion with bright intraluminal T/P Trunk is compressible. echoes consistent with chronic DVT. PTV is compressible. RT PTV is partially compressible at the LT PerV is compressible. proximal portion with intraluminal echoes consistent with chronic DVT. Procedure Exam performed in department. A preliminary report was called and/or faxed to Dr Latham. VL/Venous Duplex US - Miguelito Extrem Interpretation Summary Chronic venous changes are noted in the right femoral vein and posterior tibial vein, which are partially compressible and demonstrate bright intraluminal echogenicity. The re mainder of the right lower extremity deep venous system is patent and compressible. The right common femoral vein and popliteal vein are competent. Deep veins of the left lower extremity are patent and compressible segmentally. There is no evidence of left lower extremity deep vein thrombosis. Valvular competence appears intact within the proximal deep venous system on the left . The great s aphenous veins appear bilaterally patent and compressible segmentally. Ordering Physician: Diomedes Latham Referring Physician: DESIRAE HOOK Performed By: Dalia Beyer, RDCS, RVT
== END ==
PROVIDERS: PCP Family Medicine; Referring Provider Internal Medicine Pulmonary Disease; Visit Provider Internal Medicine Pulmonary Disease
DX: R06.00 Dyspnea, unspecified (principal); Z86.711 Personal history of pulmonary embolism; Z86.16 Personal history of COVID-19
CPT/HCPCS: 93970

== ENCOUNTER 2021-09-10 13:54 | Outpatient (CLI) | payer MEDICARE, OTHER, SELFPAY | END 2021-09-10 23:59 | disposition short-term general hospital (02) | LOC: LABSPEC 13:56 | PROVIDERS: PCP Family Medicine; Referring Provider Family Medicine; Visit Provider Family Medicine | DX: R69 Illness, unspecified (principal) ==

== ENCOUNTER 2021-09-10 21:28 | Outpatient (CLI) | payer MEDICARE, OTHER, SELFPAY | END 2021-09-10 23:59 | disposition home or self-care (01) | LOC: LABSPEC 11-24 21:28 | PROVIDERS: PCP Family Medicine; Visit Provider Family Medicine | DX: B34.9 Viral infection, unspecified (principal) | CPT/HCPCS: 87635; U0003; U0005 ==

== ENCOUNTER → 2021-09-28 15:07 | Outpatient (CLI) | payer OTHER, MEDICARE, SELFPAY ==
--- NOTE | 2021-09-28 15:14 | VDLE_ITS ---
Reason For Study: Bilateral leg swelling/calf pain RIGHT LEFT GSV is normal. GSV is normal. CFV is compressible, spontaneous, phasic, CFV is compressible, spontaneous, phasic, competent and demonstrates normal competent, and demonstrates normal augmentation. augmentation. FV is compressible, spontaneous, phasic, FV is compressible, spontaneous, phasic, competent and demonstrates normal competent and demonstrates normal augmentation. augmentation. POP V is compressible, spontaneous, phasic, POP V is compressible, spontaneous, phasic, competent and demonstrates normal competent and demonstrates normal augmentation. augmentation. T/P Trunk is compressible. T/P Trunk is compressible. PTV is compressible. PTV is compressible. RT PerV is compressible. LT PerV is compressible. Procedure This is a venous duplex using B-mode, color flow and spectral Doppler. Exam performed in department. A preliminary report was called and/or faxed to Clark Tsang. VL/Venous Duplex US - Miguelito Extrem Interpretation Summary Deep veins of the lower extremities are bilaterally patent and compressible seg mentally. There is no evidence of deep vein thrombosis on either side. Valvular competence appears in tact within the proximal deep venous systems bilaterally. The great saphenous veins appear bila terally patent and compressible segmentally. Ordering Physician: CLARK TSANG Referring Physician: Deuce Juan MD Performed By: Fani Mejia RVT
== END ==
PROVIDERS: PCP Family Medicine
DX: M79.89 Other specified soft tissue disorders (principal); I26.99 Other pulmonary embolism without acute cor pulmonale; M79.661 Pain in right lower leg; M79.662 Pain in left lower leg
CPT/HCPCS: 93970

== ENCOUNTER 2021-10-20 11:36 | Outpatient (CLI) | payer MEDICARE, OTHER, SELFPAY ==
[2021-10-20 14:57] LABS: Absolute Neutrophil Count 4.1 X10^3/uL (2.0-7.7); Basophil# 0.03 X10^3/uL; Basophil% 0.5 % (0-1); Eosinophil# 0.18 X10^3/uL; Eosinophils% 2.8 % (0-5); Hematocrit 41.2 % (40-54); Hemoglobin 12.9 g/dL (13.0-16.5); Lymphocyte % 24.7 % (19-41); Mean Corp Hgb Conc 31.3 g/dL (32-36); Mean Corpuscular Hgb 27.2 pg (27.0-32.0); Mean Corpuscular Volume 86.9 fL (80-94); Mean Platelet Vol. 10.1 fl (6.2-12.0); Monocyte# 0.58 X10^3/uL; NRBC Flagged by Analyzer 0 % (0-5); Neutrophil # 4.05 X10^3/uL (2.7-7.7); Neutrophil % 62.5 % (47-70); Platelet Count 232 K/mm3 (150-450); RBC Distribution Width CV 13.5 % (11.6-14.6); RBC Distribution Width SD 43.1 fl (35.1-43.9); Red Blood Count 4.74 M/mm3 (4.6-6.2); White Blood Count 6.5 K/mm3 (4.4-11.0)
[2021-10-20 15:28] LABS: BNP,B-Type NATRIURETIC PEPTIDE 47.9 pg/mL (0-100)
[2021-10-20 15:43] LABS: ALB/GLOB Ratio 1.1 RATIO (0.9-2.4); AST(SGOT) 17 U/L (15-37); Alanine Aminotransfer ALT/SGPT 28 U/L (16-61); Albumin, Serum 3.9 g/dL (3.2-5.0); Alkaline Phosphatase 78 U/L (45-117); Anion Gap 5 (5-15); BUN 17 mg/dL (7-18); CPK Total, Creatine Kinase 73 U/L (39-308); CRP < 2.90 mg/L (0.0-3.0); Calcium,Total 9.2 mg/dL (8.5-10.1); Chloride 105 mmol/L (98-107); EST Glomerular Filtration Rate 78 mL/min (>60); Est Glom Filt Rate - Afr Amer 95 mL/min (>60); Ferritin 105 ng/mL (26-388); Globulin 3.5 g/dL (2.2-4.2); Glucose 112 mg/dL (74-106); Iron Binding Capacity,Total 295 ug/dL (250-450); Potassium 4.6 mmol/L (3.5-5.1); Protein, Total 7.4 g/dL (6.4-8.2); Sodium Level 138 mmol/L (136-145)
== END 2021-10-20 23:59 | disposition home or self-care (01) ==
LOC: MFPLAB 11:42
PROVIDERS: PCP Family Medicine; Referring Provider Family Medicine; Visit Provider Family Medicine
DX: M79.606 Pain in leg, unspecified (principal); G25.81 Restless legs syndrome; R06.00 Dyspnea, unspecified
CPT/HCPCS: 36415; 80053; 82550; 82728; 83550; 83880; 85025; 86140

== ENCOUNTER 2021-11-26 13:17 | Outpatient (CLI) | payer MEDICARE, OTHER, SELFPAY ==
--- NOTE | 2021-11-26 13:20 | RAD_ITS ---
STUDY: X-RAY CHEST REASON FOR EXAM: Male, 71 years old. COVID TECHNIQUE: PA and lateral. COMPARISON: None. FINDINGS: The lungs are clear and expanded. There is no demonstrated pleural abnormality. Minimal increased linear markings at the lung bases appear largely chronic. Mild increased lucency in the upper lung hebert may be due to mild COPD. Normal size heart. There is mildly tortuous contour of descending thoracic aorta on the frontal view but not convincing for precious aneurysm.. Minimal degenerative spine changes. Straightening of the usual kyphotic thoracic curvature. Normal visualized ribs, clavicles, and shoulders. There is no demonstrated abnormality of the visualized soft tissue structures of the upper abdomen. RAD/Chest PA and Lateral IMPRESSION: No acute intrathoracic abnormality. Minimal chronic lung changes and spine changes. Electronically Signed: Adele Harman MD at 21:13 EDT ,
== END 2021-11-26 23:59 | disposition home or self-care (01) ==
LOC: MTRAD 13:19
PROVIDERS: PCP Family Medicine; Referring Provider Internal Medicine Pulmonary Disease; Visit Provider Internal Medicine Pulmonary Disease
DX: U07.1 COVID-19 (principal)
CPT/HCPCS: 71046

== ENCOUNTER → 2021-12-31 | Outpatient (CLI) | payer MEDICARE, OTHER, SELFPAY ==
[2021-12-31 15:02] LABS: D-Dimer Quantitative (DVT/PE) 0.48 FEU/ug/m (0.27-0.49)
== END | disposition home or self-care (01) ==
LOC: LAB.FUTURE 11:53 → MTLAB 11:54
PROVIDERS: PCP Family Medicine
DX: Z86.711 Personal history of pulmonary embolism (principal)
CPT/HCPCS: 36415; 85379

== ENCOUNTER → 2022-06-16 | Outpatient (CLI) | payer MEDICARE, OTHER, SELFPAY ==
[2022-06-17 16:53] LABS: Magnesium 1.9 mg/dL (1.6-2.6)
== END | disposition home or self-care (01) ==
LOC: PSN 16:10
PROVIDERS: Anesthesiology; PCP Family Medicine; Referring Provider Physician Assistant; Visit Provider Physician Assistant
DX: Z01.818 Encounter for other preprocedural examination (principal)
CPT/HCPCS: 83735

== ENCOUNTER 2022-08-01 15:03 | Observation (INO) | payer MEDICARE, OTHER, SELFPAY ==
[2022-06-14 16:45] LABS: Absolute Lymphocyte Count 1.52 X10^3/uL (0.83-4.51); Absolute Neutrophil Count 4.6 X10^3/uL (2.0-7.7); Basophil# 0.02 X10^3/uL; Basophil% 0.3 % (0-1); Eosinophil# 0.16 X10^3/uL; Eosinophils% 2.4 % (0-5); Hematocrit 38.2 % (40-54); Hemoglobin 11.9 g/dL (13.0-16.5); Lymphocyte # 1.52 X10^3/ul (0.83-4.51); Lymphocyte % 22.4 % (19-41); Mean Corp Hgb Conc 31.2 g/dL (32-36); Mean Corpuscular Hgb 26.4 pg (27.0-32.0); Mean Corpuscular Volume 84.9 fL (80-94); Mean Platelet Vol. 9.4 fl (6.2-12.0); Monocyte% 7.4 % (0-10); NRBC Flagged by Analyzer 0 % (0-5); Neutrophil # 4.57 X10^3/uL (2.7-7.7); Neutrophil % 67.2 % (47-70); Platelet Count 207 K/mm3 (150-450); RBC Distribution Width CV 13.2 % (11.6-14.6); RBC Distribution Width SD 40.6 fl (35.1-43.9); White Blood Count 6.8 K/mm3 (4.4-11.0)
[2022-06-14 17:08] LABS: ALB/GLOB Ratio 1.2 RATIO (0.9-2.4); AST(SGOT) 15 U/L (15-37); Alanine Aminotransfer ALT/SGPT 20 U/L (16-61); Albumin, Serum 3.9 g/dL (3.2-5.0); Alkaline Phosphatase 96 U/L (45-117); Anion Gap 5 (5-15); BUN 16 mg/dL (7-18); BUN/Creat Ratio 17.2 RATIO (10-20); Calcium,Total 9.2 mg/dL (8.5-10.1); Chloride 108 mmol/L (98-107); Creatinine, Serum 0.93 mg/dL (0.70-1.30); EST Glomerular Filtration Rate 85 mL/min (>60); Est Glom Filt Rate - Afr Amer 102 mL/min (>60); Globulin 3.3 g/dL (2.2-4.2); Glucose 99 mg/dL (74-106); Potassium 3.9 mmol/L (3.5-5.1); Protein, Total 7.2 g/dL (6.4-8.2); Sodium Level 139 mmol/L (136-145)
[2022-06-14 17:53] LABS: Hemoglobin A1c 5.6 % (3.8-5.6)
--- NOTE | 2022-06-16 16:21 | EKG12_ITS ---
Test Reason : PRE OP Blood Pressure : / mmHG Vent. Rate : 082 BPM Atrial Rate : 082 BPM P-R Int : 140 ms QRS Dur : 088 ms QT Int : 390 ms P-R-T Axes : 052 017 028 degrees QTc Int : 455 ms Normal sinus rhythm with sinus arrhythmia Normal ECG Confirmed by CELI YOUNG, LAURO ([id number]), editor house organ VIDA FLOEWRS ([id number]) on 06/20/2022 9:30:01 AM Referred By: Des Sellers Confirmed By:LAURO ALATORRE MD
[2022-07-26 17:39] LABS: Magnesium 2.1 mg/dL (1.6-2.6)
--- NOTE | 2022-07-27 15:15 | CASEMGMT ---
RN CM Assessment: TC to pt for initial transition planning/care coordination assessment. Care providers, pharmacy, and demographics verified/updated. Admitting Dx: L Total Hip PCP:Grzegorz Specialists:demian Sellers [facility]acy: [facility] Insurance: EMILE, Cigchan Prescription Benefit: yes LNOK: Anette Singleton, Living Arrangements: Pt lives with in a single story house with 1 step to enter. Pt reports he is I in ADL's and denies concerns at home. Transportation: Pt drives self and denies concerns with transportation. Pt states can transport him to medical appts until he is able to drive again. DME/HHC/SNF: Pt has a cane, FWW and grab bars in the bathroom. Pt typically does not use AD. Pt denies hx of HHC or SNF stays. Pt states no concerns with going home at time of dc. He has therapy set up at [facility] but does not have the paper in front of him to know which day. Pt states no further concerns/needs. CM to follow. Advised pt to ask CM if any further question/concerns/needs arise, voices understanding. Pt Goal: Home with outpt therapy set up Plan: Home with outpt therapy set up
[2022-08-01] VITALS (16 sets, daily range): BP systolic 104–154; BP diastolic 47–84; PULSE 57–95; RESP 12–18; TEMP 36.3–36.7; O2SAT 94–100; BMI 32.8
[2022-08-01] MEDS: Acetaminophen 500 MG Tablet 1000 MG PO ×3 (11:30→21:51)
[2022-08-01] MEDS: Lactated Ringers 1,000 ML 15 ML IV ×2 (11:32→13:30)
[2022-08-01 11:55] LABS: Bedside Glucose 102 mg/dL (74-106)
[2022-08-01] MEDS: Cefazolin 2 GM in 0.9% Normal Saline 100 ML IV (12:13)
--- NOTE | 2022-08-01 12:30 | FEM_PTH ---
PATIENT: AIRAM ALICEA LOC: MS3 U#:[id number] AGE/SX: 71/M ROOM: [facility] [place] RE08/01/[address]: Dr. Des Sellers DO : 1950 BED: 1 DIS: 08/02/2022 SPEC #: [id number] RECD: 08/01/22 16:04 STATUS: KOSTA REMarina #: [id number] ADAN: 08/01/22 12:[address]: Des Sellers DEPT: SURGICAL PATHOLOGY RECD BY: Paula Alvarez ENTERED: 08/02/22 10:02 SP TYPE: FEM HEAD OTHR DR: Dr. Bertin Lantigua MD Tissues: Femoral region, NOS Procedures: Decalcification bone/plaque Surgery Specimen Level IV HEADER OPERATION: ERAS, total hip replacement PRE-OP DIAGNOSIS: Primary osteoarthritis left hip TISSUE SUBMITTED: Femoral head and soft tissue MICROSCOPIC DIAGNOSIS Bone and soft tissue of left hip, total hip resection: Severe degenerative joint disease. Crystalline debris consistent with pseudogout. AM:primo 08/05/2022 MICROSCOPIC DESCRIPTION Slides are reviewed. GROSS DESCRIPTION Received is one container labeled with the patient's name and designated bone and soft tissue hip, left. The specimen consists of a deformed casarez femoral head measuring 6 x 5.5 x 4.5 cm. Portion of femoral neck measures up to 1 cm in length. The articular surface displays prominent osteophyte formation, eburnation and bone erosion. Also present in the specimen container are multiple pieces of bone reamings and fragments of bone measuring in aggregate 9 x 8 x 2.5 cm. Also attached to the femoral head is a piece of soft tissue measuring 3 x 1.5 x 0.5 cm. [employer] sections are submitted in two cassettes as follows: 1 - soft tissue, 2 - bone after decalcification. / SJ:primo 08/03/2022 TC:5 CPT: 16322, 29002
--- NOTE | 2022-08-01 13:38 | OP.PCM_ITS ---
Report of Operation Date of Procedure: 08/01/22 Pre-Operative Diagnosis: OA left hip Post-Operative Diagnosis: same Surgery/Procedure Performed:: Left THR Description of Surgical Findings:: Report of Operation Date of Procedure: 08/01/2022 Pre-Operative Diagnosis: OA [left ] hip Post-Operative Diagnosis: same Surgery/Procedure Performed: [left ] THR health information internship: Dyu Bustamante PA-C Type of Anesthesia: spinal Anesthesiologist: Say Govea M.D. Specimen's removed: bone Estimated Blood Loss (mL): 50 cc Implants: 132 degree Tom Accolade 2 size 6 femoral stem with neutral head/neck, 48 mm Trilogy cup, MDM liner Surgical Indications: Patient has severe end-stage osteoarthritic changes in the [left ] hip. They have failed conservative measures including activity modification, anti- inflammatories, use of assistive devices. This to the point where the pain affects their ability to enjoy life and complete activities of daily living without discomfort. Patient has elected to undergo the above procedure Procedure Description: The patient was greeted in the preoperative area the [left ] hip was marked with surgical marker preoperative antibiotics administered. The patient was then taken to or suite in stable condition. Preoperative tranexamic acid was also utilized. Once the patient was placed in the supine position on the operating room table and once adequate anesthesia was obtained they were then placed in the lateral decubitus position with the surgical hip facing the field. All bony prominences were well-padded. A commercial hip position was utilized. The appropriate extremity was then prepped and draped in usual sterile fashion. Ioban was placed on the skin. Surgical timeout was performed and surgery was commenced. A standard posterior approach to the hip was then performed. Incision was planned and carried out with a #10 blade scalpel. Dissection was then carried length of the incision to the IT band which was split proximally and distally. A Charnley retractor was then placed for soft tissue retraction exposing the piriformis. A standard posterior capsulotomy was performed. Severe eburnation of bone was noted and periarticular osteophytes were identified consistent with severe end-stage osteoarthritis. A femoral neck osteotomy guide was used to jennifer the proximal femur. A femoral osteotomy was then created approximately 1 fingerbreadth above the lesser trochanter. This was measured and placed on the back table. Once this was complete acetabular retractors were placed anteriorly and posteriorly. Labrum was then removed from the acetabulum exposing the entire cup of the acetabulum. Sequential reaming was then commenced and the acetabulum was medialized and sequentially widened in order to accommodate appropriate size cup. The acetabular cup was then impacted into position to the appropriate depth referencing approximately [45 ] anteversion and [45 ]of inclination. Excellent purchase was obtained. An appropriate size MDM liner was then placed. Attention was then turned to the femoral preparation. The hip was placed in the 90/90 position and a lateralizing box osteotome was utilized. Femoral starting awl was used followed by sequential broaching to the appropriate size. Excellent purchase was obtained with the stem no stem subsidence and excellent rotational stability was confirmed. A calcar reamer was then used in the trial head neck was placed on the broach. The hip was then located and taken through full range of motion flexion internal and external rotation as well as extension. Excellent stability was noted no impingement was identified of the components and leg lengths appear to be appropriate. The hip was at this point dislocated and the trial femoral components were removed. The final femoral stem was then implanted and impacted to the appropriate depth. Again excellent purchase was obtained no stem subsidence or rotational instability was noted. The hip was once again trialed and confirmation of leg length and stability was performed. Soft tissue tension also appeared to be appropriate. At this point the hip was redislocated and the trunnion was cleaned and dried meticulously in the appropriate size MDM femoral head was placed on the clean dry trunnion using a 12/14 Castillo taper. The hip was once again relocated and again taken through full range of motion. I did inject a cocktail of postoperative pain medication in the deep and superficial tissues. Copious irrigation was performed. Anatomic closure of the piriformis tendon was performed through drill holes in the greater trochanter. A #1 Vicryl 0 Vicryl was utilized in subcutaneous tissue and surgical joe were placed in the skin. A well-padded nonadherent dressing was applied. Patient was taken to PACU in stable condition. No complications were identified. Will follow standard postop protocol for total hip arthroplasty. My transportation assistant played a vital role in the procedure beginning with positioning, holding retraction of soft tissues, positioning the leg to optimize visualization during the procedure and assisting with wound closure. Post-op Plan: DVT ppx; ASA 81 mg BID, thigh high compression stockings Follow up: in office in 2 weeks for wound check PT: to start POD #0 at hospital, outpatient PT should be arranged. Preoperative antibiotic: Ancef 2 grams IV Des Sellers DO Surgeon: Des Sellers health information internship: Duy Bustamante Type of Anesthesia: Spinal Anesthesiologist: Say Govea Specimen's removed: bone Estimated Blood Loss (mL): 50 cc Fluids Replaced: 1000 cc crystalloid Admit VTE Documentation VTE Present on Admission: Yes VTE Mechan Device Prophylaxis: SCD's and Thigh High JOZEF Hose VTE Pharm Prophylaxis ordered?: Yes
--- NOTE | 2022-08-01 14:00 | RAD_ITS ---
STUDY: X-RAY - PELVIS AND LEFT HIP REASON FOR EXAM: Male, 71 years old. Post Op -- AP both hips on single omayra/lateral of op hip PACU TECHNIQUE: 2 views of the pelvis and hip. COMPARISON: Comparison is made with prior study dated 10/31/2016. FINDINGS: The patient is status post left hip replacement. There is good alignment. Postoperative soft tissue changes. RAD/Hip Min 2 Views (Portable) IMPRESSION: Status post left total hip replacement. There is good alignment. Postoperative soft tissue changes. Electronically Signed: Serg Miranda MD at 14:21 EST ,
[2022-08-01] MEDS: Lactated Ringers 1,000 ML 999 ML IV (14:05)
[2022-08-01] MEDS: Lactated Ringers 1,000 ML 125 ML IV (15:46)
--- NOTE | 2022-08-01 16:59 | CASEMGMT ---
RN CINTHYA NOTE: RN CM to room. Introduced self and role to pt and , who is at bedside. states would like to be present when therapy works w/pt tomorrow. [place], PT, made aware. Plan per pre-op RN CINTHYA was for OP therapy. CM to follow Tues. PT/OT evals pending. Rosa REAGANN JOVANI CM
[2022-08-01] MEDS: Budesonide Respules 0.5 MG/2 ML AMPUL.NEB. INHALATION (18:59)
[2022-08-01] MEDS: Albuterol 2.5 MG/3 ML VIAL.NEB. INHALATION (18:59)
[2022-08-01] MEDS: oxyCODONE 5 MG Tablet PO (20:51)
[2022-08-01] MEDS: Cefazolin 1 GM/50 ML BAG IV (21:49)
[2022-08-01] MEDS: guaiFENesin 1,200 MG Tablet 1200 MG PO (21:51)
[2022-08-01] MEDS: Senna/Docusate Sodium 1 Tablet 2 TABLET PO (21:51)
[2022-08-02] MEDS: oxyCODONE 5 MG Tablet PO ×3 (02:04→13:10)
[2022-08-02 02:05] VITALS: BP 141/84; PULSE 81; RESP 18; TEMP 36.8; O2SAT 96
[2022-08-02] MEDS: Cefazolin 1 GM/50 ML BAG IV (03:50)
[2022-08-02] MEDS: Ondansetron 4 MG/2 ML Vial IV (04:11)
[2022-08-02] MEDS: 0.9% Saline Lock 10 ML Syringe IV (04:11)
[2022-08-02] MEDS: Acetaminophen 500 MG Tablet 1000 MG PO (04:26)
[2022-08-02 06:31] LABS: Hematocrit 30.5 % (40-54); Hemoglobin 9.8 g/dL (13.0-16.5); Mean Corp Hgb Conc 32.1 g/dL (32-36); Mean Platelet Vol. 9.7 fl (6.2-12.0); Platelet Count 158 K/mm3 (150-450); RBC Distribution Width CV 13.7 % (11.6-14.6); RBC Distribution Width SD 42.4 fl (35.1-43.9); Red Blood Count 3.63 M/mm3 (4.6-6.2); White Blood Count 9.2 K/mm3 (4.4-11.0)
[2022-08-02 07:09] LABS: Anion Gap 6 (5-15); BUN 16 mg/dL (7-18); BUN/Creat Ratio 20.5 RATIO (10-20); Calcium,Total 8.7 mg/dL (8.5-10.1); Chloride 106 mmol/L (98-107); Creatinine, Serum 0.78 mg/dL (0.70-1.30); EST Glomerular Filtration Rate 104 mL/min (>60); Est Glom Filt Rate - Afr Amer 125 mL/min (>60); Estimated Creatinine Clearance 68.94 ml/min; Glucose 120 mg/dL (74-106); Potassium 4.2 mmol/L (3.5-5.1); Sodium Level 138 mmol/L (136-145)
[2022-08-02] MEDS: Albuterol 2.5 MG/3 ML VIAL.NEB. INHALATION ×2 (07:22→13:57)
[2022-08-02] MEDS: Budesonide Respules 0.5 MG/2 ML AMPUL.NEB. INHALATION (07:22)
[2022-08-02 07:25] VITALS: PULSE 89; RESP 16; O2SAT 98
--- NOTE | 2022-08-02 07:35 | PCM.PN.ORT ---
Subjective Subjective Patient sitting at bedside. Patient states his hip has been painful but well managed. Patient denies chest pain, shortness of breath, calf pain, nausea vomiting. Patient states he is ready for discharge home. Objective Data Objective Data Vital Signs: Vital Signs Temp Pulse Resp BP Pulse Ox O2 Del Method O2 Flow Rate 98.3 F 89 16 141/84 H 98 Room Air 4 08/02/22 02:05 08/02/22 07:25 08/02/22 07:25 08/02/22 02:05 08/02/22 07:25 08/02/22 07:25 08/01/22 17:31 Oxygen Flow Rate (L/min) 4 Oxygen Delivery Method Room Air Weight: 104 kg Body Mass Index (BMI) 32.8 Intake & Output: Intake and Output for Last 24 Hours 07/31/22 08/01/22 08/02/22 23:59 23:59 23:59 Intake Total 4262 / 4262 50 / 50 Balance 4262 / 4262 50 / 50 Lab / Micro Data Result Diagrams: 08/02/22 05:01 08/02/22 05:01 Labs: Laboratory Results - last 24 hr 08/01/22 10:46: POC Glucose 102 08/02/22 05:01: WBC 9.2, RBC 3.63 L, Hgb 9.8 L, Hct 30.5 L, MCV 84.0, MCH 27.0, MCHC 32.1, RDW Std Deviation 42.4, RDW Coeff of Farhan 13.7, Plt Count 158, MPV 9.7 08/02/22 05:01: Sodium 138, Potassium 4.2, Chloride 106, Carbon Dioxide 26.0, Anion Gap 6, BUN 16, Creatinine 0.78, Estim Creat Clear Calc 68.94, Est GFR (MDRD) Af Amer 125, Est GFR (MDRD) Non-Af 104, BUN/Creatinine Ratio 20.5 H, Glucose 120 H, Calcium 8.7 Micro: Microbiology 07/26/22 16:30 Swab (Method) Nasal Screen MRSA/MSSA - Final 06/14/22 16:25 Swab (Method) Nasal Screen MRSA/MSSA - Final Radiography Diagnostic Testing: Radiology Impression Hip X-Ray 08/01/22 14:00 IMPRESSION: Status post left total hip replacement. There is good alignment. Postoperative soft tissue changes. Electronically Signed: Serg Miranda MD at 14:21 EST , Physical Exam Narrative Upon exam I found patient sitting at bedside awake alert. Patient is no respiratory distress, speaking in full sentences. Patient has full range of motion of the upper extremities with good muscle tone and strength. Patient's incision on the left hip was clean dry intact. There was no calf tenderness bilaterally.. Patient good flexion-extension of bilateral knees. Good strength with plantar flexion dorsiflexion of bilateral feet. Neurovascular is otherwise intact. Const alert and oriented x3 General Appearance: cooperative HEENT normocephalic Eyes PERRL Resp normal respiratory effort Effort and Inspection: able to speak in complete sentences Extremity normal capillary refill Skin no rashes or lesions noted Neuro CN's II-XII intact bilaterally Psych mental status grossly normal and affect normal Assessment & Plan Assessment/Plan (1) S/P total left hip arthroplasty: PLAN: 1. Continue all pain medications as prescribed 2. Patient will receive a dose of Lovenox 40 mg today, he will be discharged home with Xarelto 10 mg daily for 2 weeks and then will be converted over to aspirin 81 mg 1 p.o. every 12 hours for 2 weeks for postop DVT prophylaxis. 3. Encourage incentive spirometry 4. Patient can weight-bear as tolerated with walker 5. Continue ice to surgical area 6. Discharge home today after p.m. therapy 7. Patient will continue outpatient physical therapy at [facility] [place] 8. Follow-up as scheduled
--- NOTE | 2022-08-02 07:38 | DCINST_ITS ---
Discharge Instructions Diet Discharge Diet: No restrictions Activity Discharge Activity: May Shower and Use Walker May shower in (days): 3 May resume sexual activity in: No Restrictions Ice area for (Minutes): 30 Weight Bearing Status: Weight bearing as tolerated and Full weight bearing Keep extremity elevated above heart level: Operative Extremity Dressing / Incision Call your doctor if your incision/area has: Continuous Slow Oozing, Sudden Increased Bleeding, Increased Pain/ Swelling and Increased Redness Call your doctor if you observe: Fever of 101 or Higher Change Dressing in: leave in place till F/U Remove Dressing in: leave in place till F/U Follow Up Care Please Follow Up With: Duy Bustamante PA-C Test Results: Test results from this visit will be discussed in further detail at your follow- up appointment, if applicable. Discharge Plan Admission Admit Date/Time: 08/01/22 15:03 Primary Reason for Your Visit: Left total hip Attending Provider: Des Sellers Primary Care Provider: Bertin Lantigua Discharge Orders/Prescriptions Prescriptions: New acetaminophen 500 mg Tablet 1,000 mg PO Q8 30 Days Qty: 180 0RF oxycodone 5 mg Tablet 5 - 10 mg PO Q4H PRN PRN (Reason: Pain Score 4-10) 7 Days Qty: 84 0RF Rx Instructions: 1 or 2 p.o. every 4 hours as needed severe pain Xarelto 10 mg Tablet 10 mg PO DINNER 30 Days Qty: 30 0RF Continued albuterol sulfate [Proventil HFA] 6.7 GM HFA aerosol inhaler 1 - 2 puff IH DAILY PRN (Reason: SOB) budesonide-formoterol [Symbicort] 1 INHALER inhaler 1 puff inhalation BID pantoprazole 40 mg Tablet,Delayed Release (Dr/Ec) 40 mg PO DAILY tamsulosin 0.4 mg Capsule 0.4 mg PO QHS PRN PRN (Reason: Urinary Retention) diphenhydramine HCl 50 mg Capsule 50 mg PO BID meloxicam 15 mg tablet 15 mg PO DAILY Label Comments: TAKE 1 TABLET BY MOUTH ONCE DAILY WITH FOOD pseudoephedrine HCl [Sudafed 12 Hour] 120 mg Tablet Extended Release 120 mg PO DAILY Mucinex 1,200 mg Tablet Extended Release 12hr 1,200 mg PO BID Discontinued acetaminophen 650 mg Tablet 650 mg PO BID oxycodone-acetaminophen 5-325 mg tablet 1 tab PO Q8 Label Comments: TAKE 1 TABLET BY MOUTH THREE TIMES DAILY NEEDED FOR PAIN Referrals / Follow Up: Bertin Lantigua MD [Primary Care Provider] - Disposition Disposition (needs filled in before D/C Order can be placed): Home, Self Care
[2022-08-02 08:05] VITALS: BP 147/73; PULSE 95; RESP 17; TEMP 36.4; O2SAT 96
[2022-08-02] MEDS: guaiFENesin 1,200 MG Tablet 1200 MG PO (08:15)
[2022-08-02] MEDS: Pantoprazole Sodium 40 MG Tablet PO (08:15)
[2022-08-02] MEDS: Senna/Docusate Sodium 1 Tablet 2 TABLET PO (08:16)
--- NOTE | 2022-08-02 09:31 | CASEMGMT ---
Social Work? ? SW in to pt room to verify advance directives. Pt confirmed has AD and named , Augustina, as agent. SW made pt aware documents are not on file and if pt would like to bring these documents in the documents can be dropped off at the Medical Records department. Pt voiced understanding. ? ? CHI Castaneda?
--- NOTE | 2022-08-02 10:49 | CASEMGMT ---
JOVANI MENDES received tc from [facility] in pharmacy stating eliquis card does not cover his dose. States OOP is $423.80. JOVANI MENDES in to pt room, pt states he does not have rx coverage. Pt and aware of cost, pt is agreeable to paying this. Pt has outpt therapy eval on Monday at 1pm at [facility]. Pt denies further homegoing needs. TC back to [facility] in pharmacy to make aware pt will pay for med.
[2022-08-02 13:06] VITALS: BP 135/70; PULSE 81; RESP 18; TEMP 36.4; O2SAT 96
[2022-08-02 13:59] VITALS: PULSE 83; RESP 16
--- NOTE | 2022-08-02 14:04 | PHA.DC.MR ---
Pharmacy Service has performed discharge medication reconciliation for this patient. The patient's discharge medication list was reviewed for discrepancies and discrepancies were resolved. Unable to residential counselor, medications reviewed. Home Medications albuterol sulfate 90 mcg/actuation aerosol inhaler (Proventil HFA) 1 - 2 puff IH DAILY PRN SOB 10/19/16 budesonide-formoterol HFA 160 mcg-4.5 mcg/actuation aerosol inhaler (Symbicort) 1 puff inhalation BID breathing 10/19/16 pantoprazole 40 mg tablet,delayed release 40 mg PO DAILY gastric reflux 06/12/21 tamsulosin 0.4 mg capsule 0.4 mg PO QHS PRN PRN Urinary Retention 06/12/21 diphenhydramine HCl 50 mg capsule 50 mg PO BID 06/20/22 guaifenesin 1,200 mg tablet, extended release 12 hr (Mucinex) 1,200 mg PO BID 06/20/22 meloxicam 15 mg tablet 15 mg PO DAILY 06/20/22 pseudoephedrine HCl 120 mg tablet,extended release (Sudafed 12 Hour) 120 mg PO DAILY 06/20/22 Restful Legs 1 - 2 tab PO/SL Q4H PRN restless legs 08/02/22 acetaminophen 500 mg tablet 1,000 mg PO Q8 30 days #180 tabs 08/02/22 oxycodone 5 mg tablet 5 - 10 mg PO Q4H PRN PRN Pain Score 4-10 7 days #84 tabs 08/02/22 rivaroxaban 10 mg tablet (Xarelto) 10 mg PO DINNER Postop DVT prophylaxis 30 days #30 tabs 08/02/22
== END 2022-08-02 14:42 | disposition home or self-care (01) ==
LOC: SDC 15:25 → MS3 15:25
PROVIDERS: Anesthesiology; Admitting Provider Orthopaedic Surgery; PCP Family Medicine; Referring Provider Orthopaedic Surgery; Visit Provider Orthopaedic Surgery
PROC: 0SRB0JZ Replacement of Left Hip Joint with Synthetic Substitute, Open Approach (ICD-10-PCS; CPT 27130; principal; 2022-08-01 12:15)
DX: M16.12 Unilateral primary osteoarthritis, left hip (principal); Z86.711 Personal history of pulmonary embolism; Z86.16 Personal history of COVID-19; Z79.01 Long term (current) use of anticoagulants; Z79.51 Long term (current) use of inhaled steroids; Z79.899 Other long term (current) drug therapy; Z86.718 Personal history of other venous thrombosis and embolism; Z87.891 Personal history of nicotine dependence
CPT/HCPCS: 27130; 01214; 36415; 73502; 80048; 80053; 82962; 83036; 83735; 85025; 85027; 87077; 87081; 88305; 88307; 88311; 93005; 94640; 96361; 96365; 96366; 96375; 97110; 97162; 97166; 97530; 99218; 99251; 99252; C1776; J7120; A4216; G0378; G0463; J2405; J3475

== ENCOUNTER → 2022-09-20 | Outpatient (CLI) | payer MEDICARE, OTHER, SELFPAY ==
[2022-09-20 10:11] LABS: Absolute Lymphocyte Count 1.74 X10^3/uL (0.83-4.51); Absolute Neutrophil Count 4.6 X10^3/uL (2.0-7.7); Basophil# 0.03 X10^3/uL; Basophil% 0.4 % (0-1); Eosinophil# 0.17 X10^3/uL; Eosinophils% 2.4 % (0-5); Hematocrit 37.7 % (40-54); Hemoglobin 11.6 g/dL (13.0-16.5); Lymphocyte # 1.74 X10^3/ul (0.83-4.51); Lymphocyte % 24.4 % (19-41); Mean Corp Hgb Conc 30.8 g/dL (32-36); Mean Corpuscular Hgb 26.2 pg (27.0-32.0); Mean Corpuscular Volume 85.1 fL (80-94); Mean Platelet Vol. 10.1 fl (6.2-12.0); Monocyte# 0.61 X10^3/uL; Monocyte% 8.5 % (0-10); NRBC Flagged by Analyzer 0 % (0-5); Neutrophil # 4.55 X10^3/uL (2.7-7.7); Neutrophil % 63.7 % (47-70); Platelet Count 209 K/mm3 (150-450); RBC Distribution Width CV 14.2 % (11.6-14.6); RBC Distribution Width SD 44.3 fl (35.1-43.9); Red Blood Count 4.43 M/mm3 (4.6-6.2); White Blood Count 7.1 K/mm3 (4.4-11.0)
[2022-09-20 10:50] LABS: AST(SGOT) 19 U/L (15-37); Alanine Aminotransfer ALT/SGPT 27 U/L (16-61); Albumin, Serum 3.3 g/dL (3.2-5.0); Alkaline Phosphatase 76 U/L (45-117); Anion Gap 8 (5-15); BUN 11 mg/dL (7-18); BUN/Creat Ratio 13.6 RATIO (10-20); Calcium,Total 8.9 mg/dL (8.5-10.1); Chloride 105 mmol/L (98-107); Creatinine, Serum 0.81 mg/dL (0.70-1.30); EST Glomerular Filtration Rate 100 mL/min (>60); Est Glom Filt Rate - Afr Amer 121 mL/min (>60); Globulin 3.2 g/dL (2.2-4.2); Glucose 106 mg/dL (74-106); Magnesium 1.6 mg/dL (1.6-2.6); Potassium 4.4 mmol/L (3.5-5.1); Protein, Total 6.5 g/dL (6.4-8.2); Sodium Level 138 mmol/L (136-145)
== END | disposition home or self-care (01) ==
LOC: MFPLAB 09:06
PROVIDERS: PCP Family Medicine; Referring Provider Family Medicine; Visit Provider Family Medicine
DX: J47.9 Bronchiectasis, uncomplicated (principal); R60.9 Edema, unspecified; I49.9 Cardiac arrhythmia, unspecified
CPT/HCPCS: 36415; 80053; 83735; 84443; 85025

== ENCOUNTER → 2022-10-11 | Outpatient (CLI) | payer MEDICARE, OTHER, SELFPAY ==
--- NOTE | 2022-10-11 13:49 | VDLE_ITS ---
Reason For Study: Swelling RIGHT LEFT GSV is normal. GSV is normal. CFV is compressible, spontaneous, phasic, CFV is compressible, spontaneous, phasic, competent and demonstrates normal competent, and demonstrates normal augmentation. augmentation. FV is compressible, spontaneous, phasic, FV is compressible, spontaneous, phasic, competent and demonstrates normal competent and demonstrates normal augmentation. augmentation. POP V is compressible, spontaneous, phasic, POP V is compressible, spontaneous, phasic, competent and demonstrates normal competent and demonstrates normal augmentation. augmentation. T/P Trunk is compressible. T/P Trunk is compressible. PTV is compressible. PTV is compressible. RT PerV is compressible. LT PerV is compressible. Procedure This is a venous duplex using B-mode, color flow and spectral Doppler. Exam performed in department. A preliminary report was called and/or faxed to Al[facility] voicemail. VL/Venous Duplex US - Miguelito Extrem Interpretation Summary Deep veins of the bilateral lower extremities are patent and compressible segme ntally. There is no evidence of bilateral lower extremity deep vein thrombosis. The bilateral great saphenous vein appears patent and compressible segmentally. Ordering Physician: CLARK RESTREPO Referring Physician: Bertin Lantigua MD Performed By: Fani Mejia RVT
== END | disposition home or self-care (01) ==
PROVIDERS: PCP Family Medicine
DX: M79.89 Other specified soft tissue disorders (principal)
CPT/HCPCS: 93970

== ENCOUNTER → 2022-11-09 | Outpatient (CLI) | payer MEDICARE, OTHER, SELFPAY | END | disposition home or self-care (01) | LOC: LABSPEC 11-14 16:20 | PROVIDERS: PCP Family Medicine; Referring Provider Internal Medicine Pulmonary Disease; Visit Provider Internal Medicine Pulmonary Disease | DX: R05.9 Cough, unspecified (principal) | CPT/HCPCS: 87070; 87077; 87205 ==

== ENCOUNTER 2023-06-21 14:42 | Emergency (ER) | payer MEDICARE, OTHER, SELFPAY ==
[2023-06-21 14:42] VITALS: BP 170/101; PULSE 83; RESP 16; TEMP 36.6; O2SAT 98
--- NOTE | 2023-06-21 15:57 | EDS_ITS ---
HPI History of Present Illness Chief Complaint: Laceration Informant: patient Onset/Context/Timing Onset: Today Context: Sudden Onset Timing: Continuous Quality: Dull Location: Left lower leg Worsened by: Ambulation Relieved by: Nothing Narrative Narrative: Patient presents with left leg laceration that occurred today. Patient was cutting firewood when one of the logs rolled and hit him in his left leg. Patient states there was a large amount of bleeding initially. Patient states he is able to wrap it and slow the bleeding down. Patient states his pain is worse with ambulation. Patient denies any paresthesias or weakness. Patient is unsure of his last tetanus. Patient denies any other injuries. [facility] Medical History Alcohol use Ambulates with cane Arthritis Back pain Bronchiectasis Cancer COVID-19 Former smoker Gastric reflux History of echocardiogram History of edema History of IBS Hx of skin cancer, basal cell Pulmonary embolism Restless legs Shortness of breath on exertion Walker as ambulation aid Wears glasses Wears hearing aid Home Medications albuterol sulfate 90 mcg/actuation aerosol inhaler (Proventil HFA) 1 - 2 puff IH DAILY PRN SOB 10/19/16 [History Last Taken 08/01/22] budesonide-formoterol HFA 160 mcg-4.5 mcg/actuation aerosol inhaler (Symbicort) 1 puff inhalation BID breathing 10/19/16 [History Last Taken 08/01/22] pantoprazole 40 mg tablet,delayed release 40 mg PO DAILY gastric reflux 06/12/21 [History Last Taken Unknown] tamsulosin 0.4 mg capsule 0.4 mg PO QHS PRN PRN Urinary Retention 06/12/21 [History Last Taken Unknown] diphenhydramine HCl 50 mg capsule 50 mg PO BID 06/20/22 [History Last Taken Unknown] guaifenesin 1,200 mg tablet, extended release 12 hr (Mucinex) 1,200 mg PO BID 06/20/22 [History Last Taken Unknown] meloxicam 15 mg tablet 15 mg PO DAILY 06/20/22 [History Last Taken Unknown] pseudoephedrine HCl 120 mg tablet,extended release (Sudafed 12 Hour) 120 mg PO DAILY 06/20/22 [History Last Taken Unknown] Restful Legs 1 - 2 tab PO/SL Q4H PRN restless legs 08/02/22 [History Last Taken Unknown] acetaminophen 500 mg tablet 1,000 mg (2 x 500 mg) PO Q8 30 days #180 tabs 08/02/22 [Rx Last Taken Unknown] oxycodone 5 mg tablet 5 - 10 mg (1 - 2 x 5 mg) PO Q4H PRN PRN Pain Score 4-10 7 days #84 tabs 08/02/22 [Rx Last Taken Unknown] rivaroxaban 10 mg tablet (Xarelto) 10 mg PO DINNER Postop DVT prophylaxis 30 days #30 tabs 08/02/22 [Rx Last Taken Unknown] Allergy/AdvReac Type Severity Reaction Status Date / Time gabapentin Allergy Rash Verified 06/21/23 14:45 Family History Other Colon cancer Heart disease Surgical History History of back surgery History of hip surgery History of hydrocelectomy Hx of colonoscopy Social History Smoking Status: Former smoker ROS ROS ED Constitutional Constitutional ED: Denies chills or fever(s) Eyes Eyes: Denies blurry vision or change in vision ENT ENT ED: Denies rhinorrhea or sore throat Cardiovascular Cardiovascular: Denies chest pain or palpitations Respiratory/Chest Respiratory/Chest: Denies cough or dyspnea Gastrointestinal Gastrointestinal: Denies nausea or vomiting Genitourinary Genitourinary ED: Denies dysuria or hematuria Musculoskeletal Musculoskeletal: Denies back pain or neck pain Integumentary Denies abscess or rash Neurologic Neurologic: Denies headache(s) or weakness Allergic/Immunologic Allergic/Immunologic ED: Denies mouth swelling or urticaria EXAM Physical Exam Const Vital Signs: 06/21/23 14:42 Temperature 98 F Temperature Source Temporal Pulse Rate 83 Respiratory Rate 16 Blood Pressure 170/101 H Blood Pressure Mean 124 Pulse Ox 98 Oxygen Delivery Method Room Air Positive well nourished and well developed General Appearance ED: well developed and NAD HEENT Reports moist mucous membranes Neck supple and no JVD Extremity Extremity Narrative: There is a 13 cm full-thickness V-shaped laceration over the medial aspect of the left distal leg and ankle area. There is moderate gapping of the wound margins. There are no foreign bodies noted. There is no bony crepitance or step-off. There is no deformity noted. There is full range of motion of the left ankle and lower leg. Pedal pulse was 2+. Sensation was intact to light touch in all digits. Capillary refill was less than 2 seconds in all digits. Neuro oriented x3, CN's II-XII intact bilaterally and no sensory deficits noted Sensorium / Orientation: alert Motor Exam: strength 5/5 throughout Psych mental status grossly normal MDM MDM MDM Narrative Medical decision making narrative: The wound was cleaned and irrigated with copious amounts of normal saline. The wound was anesthetized with 1% lidocaine with epinephrine locally. The wound was closed with 5 simple interrupted #4-0 Vicryl subcutaneous and 8 horizontal mattress #4-0 Ethilon sutures under sterile technique. Patient tolerated the procedure well. Bacitracin dressing was applied. Patient was given tetanus booster here. Patient was instructed to continue using Neosporin ointment to the area. Patient was instructed to keep his leg elevated. Patient was instructed to follow-up with his primary care physician in 7 days for wound recheck and suture removal. Patient understood and was agreeable with the plan. All questions were answered. Procedures Lacerations Left leg: Length: 13 cm Depth: Sub Q Shape: Flap (V shaped) Prep: Sterile Conditions and Chlorhexadine Laceration repair: Foreign material removed, Irrigated, Lidocaine with epi, Local, Skin sutures (8 horizontal mattress sutures using 4-0 Ethilon), Subcutaneous sutures (5 simple interrupted #4-0 Vicryl sutures) and Wound explored Irrigated (ml): 150 Discharge Plan Triage Chief Complaint: Laceration ED Provider: Bertin Witt Dx/Rx/DC Orders Clinical Impression: Laceration of left lower leg, Elevated blood pressure reading Instructions: ED Laceration: All Closures Prescriptions: No Action albuterol sulfate [Proventil HFA] 6.7 GM HFA aerosol inhaler 1 - 2 puff IH DAILY PRN (Reason: SOB) budesonide-formoterol [Symbicort] 1 INHALER inhaler 1 puff inhalation BID pantoprazole 40 mg Tablet,Delayed Release (Dr/Ec) 40 mg PO DAILY tamsulosin 0.4 mg Capsule 0.4 mg PO QHS PRN PRN (Reason: Urinary Retention) diphenhydramine HCl 50 mg Capsule 50 mg PO BID meloxicam 15 mg tablet 15 mg PO DAILY Patient Comments: TAKE 1 TABLET BY MOUTH ONCE DAILY WITH FOOD pseudoephedrine HCl [Sudafed 12 Hour] 120 mg Tablet Extended Release 120 mg PO DAILY Mucinex 1,200 mg Tablet Extended Release 12hr 1,200 mg PO BID acetaminophen 500 mg Tablet 1,000 mg PO Q8 30 Days Qty: 180 0RF oxycodone 5 mg Tablet 5 - 10 mg PO Q4H PRN PRN (Reason: Pain Score 4-10) 7 Days Qty: 84 0RF Rx Instructions: 1 or 2 p.o. every 4 hours as needed severe pain Xarelto 10 mg Tablet 10 mg PO DINNER 30 Days Qty: 30 0RF Restful Legs 1 - 2 tab PO/SL Q4H PRN (Reason: restless legs) Primary Care Provider: Bertin Lantigua Referrals: Bertin Lantigua MD [Primary Care Provider] - 7 Days for suture removal Disposition Disposition: Home, Self Care
[2023-06-21] MEDS: Diphth,Pertuss(Acell),Tet Vac 0.5 ML Vial IM (16:09)
[2023-06-21 18:07] VITALS: BP 141/67; PULSE 82; RESP 16; O2SAT 97; BMI 29.7
[2023-06-21] MEDS: Lidocaine 1% /Epi 1:100 (20ml) 20 ML Vial INFILT (18:09)
== END 2023-06-21 18:10 | disposition home or self-care (01) ==
PROVIDERS: Emergency Provider Emergency Medicine; PCP Family Medicine; Visit Provider Emergency Medicine
DX: S81.812A Laceration without foreign body, left lower leg, initial encounter (principal); W22.8XXA Striking against or struck by other objects, initial encounter; Y93.89 Activity, other specified; Z23 Encounter for immunization; R03.0 Elevated blood-pressure reading, without diagnosis of hypertension; Z87.891 Personal history of nicotine dependence; Z79.01 Long term (current) use of anticoagulants; Z79.899 Other long term (current) drug therapy
CPT/HCPCS: 12035; 90715; 99283

== ENCOUNTER 2023-07-11 09:18 | Outpatient (CLI) | payer MEDICARE, OTHER, SELFPAY ==
[2023-07-11 10:04] LABS: Absolute Lymphocyte Count 1.53 X10^3/uL (0.83-4.51); Absolute Neutrophil Count 4.3 X10^3/uL (2.0-7.7); Basophil# 0.04 X10^3/uL; Basophil% 0.6 % (0-1); Eosinophil# 0.19 X10^3/uL; Eosinophils% 2.9 % (0-5); Hematocrit 38.8 % (40-54); Hemoglobin 12.1 g/dL (13.0-16.5); Lymphocyte # 1.53 X10^3/ul (0.83-4.51); Lymphocyte % 23.3 % (19-41); Mean Corp Hgb Conc 31.2 g/dL (32-36); Mean Corpuscular Hgb 26.1 pg (27.0-32.0); Mean Corpuscular Volume 83.8 fL (80-94); Mean Platelet Vol. 9.7 fl (6.2-12.0); Monocyte# 0.51 X10^3/uL; Monocyte% 7.8 % (0-10); NRBC Flagged by Analyzer 0 % (0-5); Neutrophil # 4.28 X10^3/uL (2.7-7.7); Neutrophil % 64.9 % (47-70); Platelet Count 203 K/mm3 (150-450); RBC Distribution Width SD 42.8 fl (35.1-43.9); Red Blood Count 4.63 M/mm3 (4.6-6.2); White Blood Count 6.6 K/mm3 (4.4-11.0)
[2023-07-11 11:00] LABS: ALB/GLOB Ratio 0.9 RATIO (0.9-2.4); AST(SGOT) 20 U/L (15-37); Alanine Aminotransfer ALT/SGPT 23 U/L (16-61); Albumin, Serum 3.3 g/dL (3.2-5.0); Alkaline Phosphatase 83 U/L (45-117); Anion Gap 5 (5-15); BUN 18 mg/dL (7-18); BUN/Creat Ratio 19.5 RATIO (10-20); Calcium,Total 8.6 mg/dL (8.5-10.1); Chloride 108 mmol/L (98-107); Creatinine, Serum 0.92 mg/dL (0.70-1.30); EST Glomerular Filtration Rate 85 mL/min (>60); Est Glom Filt Rate - Afr Amer 103 mL/min (>60); Free T3 2.5 pg/mL (2.18-3.98); Globulin 3.5 g/dL (2.2-4.2); Glucose 102 mg/dL (74-106); Potassium 4.2 mmol/L (3.5-5.1); Protein, Total 6.8 g/dL (6.4-8.2); Sodium Level 140 mmol/L (136-145); T4 Free Direct 1.13 ng/dL (0.76-1.46); Thyroid Stim Hormone (TSH) 0.56 uIU/mL (0.358-3.74)
[2023-07-12 18:07] LABS: Anti-Thyroglobulin AB < 1.0 IU/mL (0.0-0.9); Thyroglobulin, Serum Qt. 5.8 ng/mL (1.4-29.2); Thyroid Peroxidase AB < 9 IU/mL (0-34)
== END 2023-07-11 23:59 | disposition home or self-care (01) ==
LOC: MTLAB 09:19
PROVIDERS: PCP Family Medicine; Referring Provider Family Medicine; Visit Provider Family Medicine
DX: J47.9 Bronchiectasis, uncomplicated (principal); R79.89 Other specified abnormal findings of blood chemistry; R06.09 Other forms of dyspnea
CPT/HCPCS: 36415; 80053; 84432; 84439; 84443; 84481; 85025; 86376; 86800

== ENCOUNTER 2023-10-24 09:00 | Outpatient (RCR) | payer MEDICARE, OTHER, SELFPAY ==
[2023-10-03 09:02] VITALS: BP 168/94; PULSE 67; RESP 18; TEMP 36.1; BMI 31.7
--- NOTE | 2023-10-03 09:53 | HP.PCM_ITS ---
History of Present Illness Date of Service: 10/03/23 History of Wound: 72-year-old male has had a wound since May 2023. Patient was chopping firewood and had a few piece of wood fall onto his left leg. Patient suffered a laceration was seen in the emergency department at that time which they flushed and cleaned the wound and closed it primarily after updating his tetanus status. Patient subsequently had his sutures removed and developed a full-thickness ulceration to his left medial leg. Patient had been performing self-care with daily dressing changes and noticed no healing, therefore, he presents today. Patient has no obvious medical problems and is not currently on any long-term medications. Patient does have bilateral lower extremity swelling. 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 Patient notes some pain to the wound site. Patient has no other complaints. [facility] Medical History Alcohol use Ambulates with cane Arthritis Back pain Bronchiectasis Cancer COVID-19 Former smoker Gastric reflux History of echocardiogram History of edema History of IBS Hx of skin cancer, basal cell Pulmonary embolism Restless legs Shortness of breath on exertion Walker as ambulation aid Wears glasses Wears hearing aid Home Medications albuterol sulfate 90 mcg/actuation aerosol inhaler (Proventil HFA) 1 - 2 puff IH DAILY PRN SOB 10/19/16 [History Last Taken 08/01/22] budesonide-formoterol HFA 160 mcg-4.5 mcg/actuation aerosol inhaler (Symbicort) 1 puff inhalation BID breathing 10/19/16 [History Last Taken 08/01/22] pantoprazole 40 mg tablet,delayed release 40 mg PO DAILY gastric reflux 06/12/21 [History Last Taken Unknown] tamsulosin 0.4 mg capsule 0.4 mg PO QHS PRN PRN Urinary Retention 06/12/21 [History Last Taken Unknown] diphenhydramine HCl 50 mg capsule 50 mg PO BID 06/20/22 [History Last Taken Unknown] guaifenesin 1,200 mg tablet, extended release 12 hr (Mucinex) 1,200 mg PO BID 06/20/22 [History Last Taken Unknown] meloxicam 15 mg tablet 15 mg PO DAILY 06/20/22 [History Last Taken Unknown] pseudoephedrine HCl 120 mg tablet,extended release (Sudafed 12 Hour) 120 mg PO DAILY 06/20/22 [History Last Taken Unknown] Restful Legs 1 - 2 tab PO/SL Q4H PRN restless legs 08/02/22 [History Last Taken Unknown] acetaminophen 500 mg tablet 1,000 mg (2 x 500 mg) PO Q8 30 days #180 tabs 08/02/22 [Rx Last Taken Unknown] oxycodone 5 mg tablet 5 - 10 mg (1 - 2 x 5 mg) PO Q4H PRN PRN Pain Score 4-10 7 days #84 tabs 08/02/22 [Rx Last Taken Unknown] rivaroxaban 10 mg tablet (Xarelto) 10 mg PO DINNER Postop DVT prophylaxis 30 days #30 tabs 08/02/22 [Rx Last Taken Unknown] ascorbic acid (vitamin C) 1,000 mg tablet,extended release (C Complex) 1,000 mg PO DAILY 10/03/23 [History Last Taken Unknown] cholecalciferol (vitamin D3) 325 mcg (13,000 unit) capsule 325 mcg PO QWEEK 10/03/23 [History Last Taken Unknown] cyanocobalamin (vitamin B-12) 1,000 mcg tablet (Vitamin B-12) 1,000 mcg PO DAILY 10/03/23 [History Last Taken Unknown] ferrous sulfate 325 mg (65 mg iron) tablet (FeroSul) 325 mg PO DAILY 10/03/23 [History Last Taken Unknown] zinc 15 mg tablet 30 mg PO DAILY 10/03/23 [History Last Taken Unknown] Allergy/AdvReac Type Severity Reaction Status Date / Time gabapentin Allergy Rash Verified 06/21/23 14:45 Family History Other Colon cancer Heart disease Surgical History History of back surgery History of hip surgery History of hydrocelectomy Hx of colonoscopy Social History Smoking Status: Former smoker ROS Constitutional Constitutional: Denies body ache(s), change in weight or chills Eyes Eyes: Denies acute decrease in peripheral vision, blindness or change in vision ENT HEENT: Denies abnormal hearing, bleeding gums or dysphagia Cardiovascular Cardiovascular: Denies abdominal bloating, abdominal edema or bluish discoloration of hand/feet Respiratory/Chest Respiratory/Chest: Denies change in mental status, change in phlegm color or difficulty clearing secretions Gastrointestinal Gastrointestinal: Denies anorexia, belching or bloating Genitourinary Genitourinary: Denies abdominal discomfort, anuria or burning urination Musculoskeletal Musculoskeletal: Denies arthralgias, atrophy or back pain Vital Signs Vital Signs Vital Signs: 10/03/23 09:02 Temperature 97 F L Temperature Source Temporal Pulse Rate 67 Respiratory Rate 18 Blood Pressure 168/94 H Blood Pressure Mean 118 Blood Pressure Source Monitor Blood Pressure Position Semi-Fowlers Blood Pressure Location Left Arm Weight Weight: 106.141 kg Body Mass Index (BMI) 31.7 Physical Exam Narrative Patient has palpable 2 out of 4 DP PT pulses to right lower extremity. Left lower extremity PT is palpable 2 out of 4. Dorsalis pedis is biphasic On Doppler examination. Patient has +2 pitting edema to bilateral lower extremity perimalleolar region with positive hemosiderin deposits and superficial varic osities. Patient has intact light touch protective sensation as well as deep tendon reflexes Achilles. No obvious clonus. Full-thickness wound noted to the medial left ankle along the course of the great saphenous vein with a mixed fibrogranular base. No overt signs of infection such as erythema malodor or purulent drainage warmth. There is some pain to the wound and periwound area. Musculoskeletal muscular strength full to bilateral lower extremity compartments. No wounds forming deformities noted. No sign DVT. Const alert and oriented x3 Debridement Note Debridement Note Post-Debridement Measurements and Additional Note: Post-Debridement Measurements/Treatment - Nurse 1 - General Ulcer Assessment Start: 10/03/23 08:28 Freq: Status: Active Protocol: KIRSTY.LOWEXT Activity Type Activity Date Activity User E-sign Co-sign Detail Recorded Client Recorded Date Recorded By Document 10/03/23 09:02 Desktop 10/03/23 09:17 RB 10/03/23 09:02 - Today's Visit Information Type of service Initial Visit Arrival Mode Ambulatory Transfer Assistance None Patient Identification Verified (Name & Yes ) Patient Requires Transmission-Based No Precautions Height and Weight Height 6 ft Weight 106.141 kg Weight in Pounds 234.0 lbs Body Mass Index (BMI) 31.7 BMI Classification Obese BSA - Morris 2.28 Vital Signs Temperature (97.8 F-99.1 F) 97 F L Temperature Source Temporal Pulse Rate (60-100) 67 Pulse Location Monitor Respiratory Rate (12-18) 18 Respiratory rate source Observation Blood Pressure (90/60-120/80) 168/94 H Blood Pressure Mean 118 Source Monitor Position Semi-Fowlers Blood Pressure Location Left Arm Pain Scale: 0-10 Numeric Is Patient Pain Free? Yes Lower Extremity Assessment/ Foot Assessment/ Toe Nail Assessment Right -Posterior Tibial Palpable Yes -Posterior Tibial Doppler Multiphasic -Dorsalis Pedis Palpable Yes -Dorsalis Pedis Doppler Multiphasic -Hair Growth on Legs Yes -Hair Growth on Toes No -Temperature of Extremity Cool -Capillary Refill Greater than 3 Seconds -Dependent Rubor No -Blanched when Elevated No -Lipodermatosclerosis No -Other Deformity No -Prior Foot Ulcer No -Charcot Joint No -Prior Amputation No -Thick No -Discolored No -Deformed No -Improper Length & Hygeine Yes Left -Posterior Tibial Palpable No -Posterior Tibial Doppler Monophasic -Dorsalis Pedis Palpable No -Dorsalis Pedis Doppler Monophasic -Extremity Color Hemosiderin -Hair Growth on Legs Yes -Hair Growth on Toes No -Temperature of Extremity Cool -Capillary Refill Greater than 3 Seconds -Dependent Rubor No -Blanched when Elevated No -Lipodermatosclerosis No -Other Deformity No -Prior Foot Ulcer No -Charcot Joint No -Prior Amputation No -Thick No -Discolored No -Deformed No -Improper Length & Hygeine Yes Neuropathy Assessment Feet - Top Side and Bottom <Entered> (a) Communication Assessment Preferred language Latvian Resource Room Teacher Required No Able to Read Yes Able to Write Yes Communication Tools None Caregiver Communication Skills No Impairment Impairment Right Hearing Abillity Normal Left Hearing Abillity Normal Visual Assistive Devices Glasses Teaching Assessment Preferences Verbal,Written, Demonstration Barriers to Learning None Readiness To Learn Excellent Willingness to Engage in Self Management High Activies Readiness to Engage in Self Management High Activities Anxiety Level Calm Cooperation Cooperative Perception Coherent Interest in Health Problem Asks Questions Education Importance Acknowledges Need Does Patient Smoke tobacco or other No substances Smoking Status Former smoker Is Patient Diabetic No Functional Assessment Recent Decline in Ability to Perform Denies Any Declines Assistive Device With Patient No Culture/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 Steam Fitter Helper to contact place of amish No Teaching: Wound Center *Welcome to the Wound Center -Person Taught Patient -Teaching Method Discussion, Demonstration -Response to teaching Verbalize understanding (a) 1 - + throughout WC - Nurse 1 - General Ulcer Measurement Start: 10/03/23 08:28 Freq: Status: Active Protocol: Activity Type Activity Date Activity User E-sign Co-sign Detail Recorded Client Recorded Date Recorded By Document 10/03/23 09:02 RB Desktop 10/03/23 09:17 RB 10/03/23 09:02 Wound Center Nurse 1 1. LLE -Combined with other wound No -Current Size (cm) - Length 6.5 -Current Size (cm) - Width 4.5 -Current Size (cm) - Depth 0.2 -Total Square Cm 29.25 -Photo Taken Yes -Tunneling No -Undermining/Tunneling No -Circular Undermining No -Exudate Amt Medium -Exudate Type Serosanguineous -Wound Margin Distinct, Outline Attached -Granulation Amt Medium (34-66%) -Granulation Quality [place] -Slough/Fibrin Yes -Necrosis Amt Medium (34-66%) -Necrotic Tissue Type Adherent Slough -Structure Exposed N/A -Texture (Astrid-wound Skin Appearance) Assessed -Moisture (Astrid-wound Skin Appearance) Assessed -Color (Astrid-wound Skin Appearance) Assessed, Hemosiderin Staining -Temperature (Astrid-wound Skin No Abnormality Appearance) (Pt Warm) -Tenderness on Palpation (Astrid-wound No Skin Appearance) -Ulcer Cleansing Wound Cleanser -Foul Odor after Cleansing No -Anesthetic Used 5% Lidocaine Gel Lower Limb Edema Present Yes Right Calf (cm) 41.5 Right Ankle (cm) 24.5 Left Calf (cm) 42 Left Ankle (cm) 24.2 WC - Nurse 2 - General Ulcer CM Notes Start: 10/03/23 08:28 Freq: Status: Active Protocol: Activity Type Activity Date Activity User E-sign Co-sign Detail Recorded Client Recorded Date Recorded By Document 10/03/23 09:45 JF Laptop 10/03/23 09:49 JF 10/03/23 09:45 Wound Center Nurse 2 1. LLE -Time 09:48 -Correct Patient Yes -Correct Side, Site, Position Yes -Correct Procedure Yes -Procedure Performed Yes -Type of Procedure Debridement -Clinical Debridement Subcutaneous -Tissue Removed Dermis -Post Debridement (cm) - Length 6.0 -Post Debridement (cm) - Width 4.5 -Post Debridement (cm) - Depth 0.2 -Total Square (Post) (cm) 27.00 -Area of Debridement (cm) - Length 6.0 -Area of Debridement (cm) - Width 4.5 -Total Square (Area) (cm) 27.00 -Tunneling No -Undermining/Tunneling No -Circular Undermining No -Wound/Ulcer Outcome Not Healed -Ulcer Cleansing Rinsed/ Irrigated with Saline -Foul Odor after Cleansing No -Bioengineered Tissue No -Bleeding Controlled with Pressure -Treatment Response Procedure Tolerated Well -Offloading No -Debridement - Subq, 1st 20sq cm Yes -Debridement, SubQ, ea addt'l 20sq cm 1 or part thereof Pain Scale: 0-10 Numeric Is Patient Pain Free? Yes Assessment/Plan Assessment/Plan (1) Venous insufficiency (chronic) (peripheral): CODE(S): I87.2 - Venous insufficiency (chronic) (peripheral) PLAN: Exam performed Neurovascular status intact, will consider arterial studies if there are any delays in healing Today left lower extremity wound was excisionally debrided down to including level of subcutaneous tissue of all nonviable tissue using a 5 mm dermal curette. Topical anesthesia was used. Pre and postdebridement measurements documented nursing notes. Patient tolerated procedure well. Hemostasis obtained with light compression. Wound was flushed with copious amounts normal sterile saline, swab culture taken Prescription for doxycycline and ciprofloxacin Today dressing was performed with Adaptic silver alginate dry sterile dressing and 3M compression. This will be changed once a week via nursing care visit. Will consider advanced wound care grafting pending any failures and local wound care Next week we will plan for more aggressive debridement under local and anesthesia with Mistorresx hydrodebrider Patient to follow-up in 1 week (2) Non-pressure chronic ulcer of left ankle with fat layer exposed: CODE(S): L97.322 - Non-pressure chronic ulcer of left ankle with fat layer exposed
--- NOTE | 2023-10-04 11:57 | WC ---
Patient's Anette called in concerned about the Cipro that was prescribed by Dr Forbes. It came with a lot of red flags for her since it discussed tendon issues and lung concerns. She is okay for him to take Doxycycline but not with Cipro. Wound cultures that were obtained are not processed yet. Recommended with patient to take the Doxycycline and hold off on the Cipro until at least we see him on Monday for a nurse visit and once the wound culture results are in. I was not able to get thru to Dr Forbes but will send him a message on backline but discussed this case with Dr Tinajero who was fine with the recommendation. Anette verbalized understanding knowing that if he develops any form of pseumonas, Doxycycline is not sensitive to this bacteria and we can revisit the Cipro issue. She stated ok.
--- NOTE | 2023-10-04 12:09 | WC ---
Dr Forbes called and discussed phone call with him and the recommendations and he states he is fine with holding off on Cipro until wound culture results are posted.
[2023-10-06 12:24] VITALS: BP 145/82; PULSE 70; RESP 18; TEMP 35.9; BMI 31.7
[2023-10-10 09:10] VITALS: BP 154/92; PULSE 83; RESP 16; BMI 31.7
--- NOTE | 2023-10-10 10:05 | PN.PCM_ITS ---
History of Present Illness Date of Service: 10/10/23 History of Wound: 72-year-old male has had a wound since May 2023. Patient was chopping firewood and had a few piece of wood fall onto his left leg. Patient suffered a laceration was seen in the emergency department at that time which they flushed and cleaned the wound and closed it primarily after updating his tetanus status. Patient subsequently had his sutures removed and developed a full-thickness ulceration to his left medial leg. Patient had been performing self-care with daily dressing changes and noticed no healing, therefore, he presents today. Patient has no obvious medical problems and is not currently on any long-term medications. Patient does have bilateral lower extremity swelling. 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 Patient notes some pain to the wound site. Patient has no other complaints. Objective Data Objective Data Vital Signs: Vital Signs Temp Pulse Resp BP O2 Del Method 96.6 F L 83 16 154/92 H Room Air 10/06/23 12:24 10/10/23 09:10 10/10/23 09:10 10/10/23 09:10 10/10/23 09:10 Oxygen Delivery Method Room Air Weight: 106.141 kg Body Mass Index (BMI) 31.7 Lab / Micro Data Micro: Microbiology 10/03/23 09:43 Wound - Leg, Left Gram Stain - Final 10/03/23 09:43 Wound - Leg, Left Wound Culture - Final Staphylococcus aureus 10/03/23 09:43 Wound - Leg, Left Anaerobic Culture - Final No anaerobic bacteria isolated. Physical Exam Narrative Patient has palpable 2 out of 4 DP PT pulses to right lower extremity. Left lower extremity PT is palpable 2 out of 4. Dorsalis pedis is biphasic On Doppler examination. Patient has +2 pitting edema to bilateral lower extremity perimalleolar region with positive hemosiderin deposits and superficial varicosities. Patient has intact light touch protective sensation as well as deep tendon reflexes Achilles. No obvious clonus. Full-thickness wound noted to the medial left ankle along the course of the great saphenous vein with a mixed fibrogranular base. No overt signs of infection such as erythema malodor or purulent drainage warmth. There is some pain to the wound and periwound area. Musculoskeletal muscular strength full to bilateral lower extremity compartments. No wounds forming deformities noted. No sign DVT. Const alert and oriented x3 Debridement Note Debridement Note Post-Debridement Measurements and Additional Note: Post-Debridement Measurements/Treatment WC - Nurse 1 - General Ulcer Assessment Start: 10/03/23 08:28 Freq: Status: Active Protocol: MIKAELA Activity Type Activity Date Activity User E-sign Co-sign Detail Recorded Client Recorded Date Recorded By Document 10/03/23 09:02 RB Desktop 10/03/23 09:17 RB Document 10/06/23 12:24 RB [id number] 10/06/23 12:26 RB Document 10/10/23 09:10 BMF Desktop 10/10/23 09:18 BMF 10/03/23 10/06/23 10/10/23 09:02 12:24 09:10 WC - Today's Visit Information Type of service Initial Visit Nurse-only Follow-up Visit Visit (Physician/ENAMEL DIPPER ) Arrival Mode Ambulatory Ambulatory Ambulatory Transfer Assistance None None None Patient Identification Verified (Name & Yes Yes Yes ) Patient Requires Transmission-Based No No No Precautions Height and Weight Height 6 ft Weight 106.141 kg Weight in Pounds 234.0 lbs Body Mass Index (BMI) 31.7 31.7 31.7 BMI Classification Obese Obese Obese BSA - Morris 2.28 Vital Signs Temperature (97.8 F-99.1 F) 97 F L 96.6 F L Temperature Source Temporal Temporal Pulse Rate (60-100) 67 70 83 Pulse Location Monitor Monitor Monitor Respiratory Rate (12-18) 18 18 16 Respiratory rate source Observation Observation Observation Oxygen Delivery Method Room Air Blood Pressure (90/60-120/80) 168/94 H 145/82 H 154/92 H Blood Pressure Mean (mm Hg) 118 103 112 Source Monitor Monitor Monitor Position Semi-Fowlers Semi-Fowlers Sitting Blood Pressure Location Left Arm Left Arm Right Arm History Since Last Visit- (Skip if this is Patient's initial visit) Have you changed medications since your No No last visit? Any new allergies or adverse reactions No No Had a fall/change in ADL's that may No No increase risk of falls Signs or symptoms of abuse and/or No No neglect since last visit Have you been in the hospital since your No No last visit? Has dressing in place as prescribed Yes Yes Has compression in place as prescribed Yes Yes Has offloadiing in place as prescribed No N/A Experienced any changes in pain level or No No management Left Footwear Regular Shoe Right Footwear Regular Shoe Pain Scale: 0-10 Numeric Is Patient Pain Free? Yes Yes Yes Lower Extremity Assessment/ Foot Assessment/ Toe Nail Assessment Right -Posterior Tibial Palpable Yes -Posterior Tibial Doppler Multiphasic -Dorsalis Pedis Palpable Yes -Dorsalis Pedis Doppler Multiphasic -Hair Growth on Legs Yes -Hair Growth on Toes No -Temperature of Extremity Cool -Capillary Refill Greater than 3 Seconds -Dependent Rubor No -Blanched when Elevated No -Lipodermatosclerosis No -Other Deformity No -Prior Foot Ulcer No -Charcot Joint No -Prior Amputation No -Thick No -Discolored No -Deformed No -Improper Length & Hygeine Yes Left -Posterior Tibial Palpable No -Posterior Tibial Doppler Monophasic -Dorsalis Pedis Palpable No -Dorsalis Pedis Doppler Monophasic -Extremity Color Hemosiderin -Hair Growth on Legs Yes -Hair Growth on Toes No -Temperature of Extremity Cool -Capillary Refill Greater than 3 Seconds -Dependent Rubor No -Blanched when Elevated No -Lipodermatosclerosis No -Other Deformity No -Prior Foot Ulcer No -Charcot Joint No -Prior Amputation No -Thick No -Discolored No -Deformed No -Improper Length & Hygeine Yes Neuropathy Assessment Feet - Top Side and Bottom <Entered> (a) Communication Assessment Preferred language [place] [employer] Required No Able to Read Yes Able to Write Yes Communication Tools None Caregiver Communication Skills No Impairment Impairment Right Hearing Abillity Normal Left Hearing Abillity Normal Visual Assistive Devices Glasses Teaching Assessment Preferences Verbal,Written, Demonstration Barriers to Learning None Readiness To Learn Excellent Willingness to Engage in Self Management High Activies Readiness to Engage in Self Management High Activities Anxiety Level Calm Cooperation Cooperative Perception Coherent Interest in Health Problem Asks Questions Education Importance Acknowledges Need Does Patient Smoke tobacco or other No substances Smoking Status Former smoker Is Patient Diabetic No Functional Assessment Recent Decline in Ability to Perform Denies Any Declines Assistive Device With Patient No Culture/Religion/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 Fourdrinier Operator to contact [facility] No Teaching: Wound Center *Welcome to the Wound Center -Person Taught Patient -Teaching Method Discussion, Demonstration -Response to teaching Verbalize understanding (a) 1 - + throughout WC - Nurse 1 - General Ulcer Measurement Start: 10/03/23 08:28 Freq: Status: Active Protocol: Activity Type Activity Date Activity User E-sign Co-sign Detail Recorded Client Recorded Date Recorded By Document 10/03/23 09:02 RB Desktop 10/03/23 09:17 RB Document 10/06/23 12:24 RB [id number] 10/06/23 12:26 RB Document 10/10/23 09:10 BMF Desktop 10/10/23 09:18 BMF 10/03/23 10/06/23 10/10/23 09:02 12:24 09:10 Wound Center Nurse 1 1. LLE -Combined with other wound No No -Current Size (cm) - Length 6.5 6 -Current Size (cm) - Width 4.5 3.6 -Current Size (cm) - Depth 0.2 0.3 -Total Square Cm 29.25 21.6 -Date of Last Picture (Recall this 10/10/23 field) -Photo Taken Yes Yes -Epithelialization Small 1-33% -Tunneling No No -Undermining/Tunneling No No -Circular Undermining No No -Exudate Amt Medium Medium -Exudate Type Serosanguineous Serosanguineous -Wound Margin Distinct, Distinct, Outline Outline Attached Attached -Granulation Amt Medium (34-66%) Medium (34-66%) -Granulation Quality Beason Hyper- granulation,Red -Slough/Fibrin Yes Yes -Necrosis Amt Medium (34-66%) Medium (34-66%) -Necrotic Tissue Type Adherent Slough Adherent Slough -Structure Exposed N/A -Texture (Astrid-wound Skin Appearance) Assessed Assessed, Scarring -Moisture (Astrid-wound Skin Appearance) Assessed Assessed, Maceration -Color (Astrid-wound Skin Appearance) Assessed, Assessed, Hemosiderin Erythema Staining -Temperature (Astrid-wound Skin No Abnormality No Abnormality Appearance) (Pt Warm) (Pt Warm) -Tenderness on Palpation (Astrid-wound No No Skin Appearance) -Ulcer Cleansing Wound Cleanser Soap and Water -Foul Odor after Cleansing No No -Anesthetic Used 5% Lidocaine 4% Lidocaine Gel Solution Lower Limb Edema Present Yes Yes Yes Right Calf (cm) 41.5 Right Ankle (cm) 24.5 Left Calf (cm) 42 41 39.4 Left Ankle (cm) 24.2 23.6 23.5 - Nurse 2 - General Ulcer CM Notes Start: 10/03/23 08:28 Freq: Status: Active Protocol: Activity Type Activity Date Activity User E-sign Co-sign Detail Recorded Client Recorded Date Recorded By Document 10/03/23 09:45 Laptop 10/03/23 09:49 Document 10/10/23 09:38 Laptop 10/10/23 09:48 10/03/23 10/10/23 09:45 09:38 Wound Center Nurse 2 1. LLE -Time 09:48 09:47 -Correct Patient Yes Yes -Correct Side, Site, Position Yes Yes -Correct Procedure Yes Yes -Procedure Performed Yes Yes -Type of Procedure Debridement Debridement -Clinical Debridement Subcutaneous Subcutaneous -Tissue Removed Dermis Subcutaneous -Post Debridement (cm) - Length 6.0 6.1 -Post Debridement (cm) - Width 4.5 3.7 -Post Debridement (cm) - Depth 0.2 0.2 -Total Square (Post) (cm) 27.00 22.57 -Area of Debridement (cm) - Length 6.0 6.1 -Area of Debridement (cm) - Width 4.5 3.7 -Total Square (Area) (cm) 27.00 22.57 -Tunneling No No -Undermining/Tunneling No No -Circular Undermining No No -Wound/Ulcer Outcome Not Healed Not Healed -Ulcer Cleansing Rinsed/ Rinsed/ Irrigated with Irrigated with Saline Saline -Foul Odor after Cleansing No No -Bioengineered Tissue No No -Bleeding Controlled with Pressure Pressure -Treatment Response Procedure Procedure Tolerated Well Tolerated Well -Offloading No No -Debridement - Subq, 1st 20sq cm Yes Yes -Debridement, SubQ, ea addt'l 20sq cm 1 or part thereof Pain Scale: 0-10 Numeric Is Patient Pain Free? Yes Yes - Nurse 3 - General Ulcer D/C NN Start: 10/03/23 08:28 Freq: Status: Active Protocol: Activity Type Activity Date Activity User E-sign Co-sign Detail Recorded Client Recorded Date Recorded By Document 10/03/23 10:09 DL Desktop 10/03/23 10:10 DL Document 10/06/23 12:24 RB [id number] 10/06/23 12:26 RB Document 10/10/23 10:01 [facility] Desktop 10/10/23 10:02 [facility] 10/03/23 10/06/23 10/10/23 10:09 12:24 10:01 Wound Care Center Nurse 3 1. LLE -Ulcer Cleansing Soap and Water -Foul Odor after Cleansing No -Primary Dressing Applied NonAdherent NonAdherent NonAdherent Contact Layer, Contact Layer, Contact Layer Optilok 6.5x10, Optilok 6.5x10, Silvercel Silvercel -Other Dressing silvercel -Primary Dressing Covered/Secured with Dry Gauze & Roll Gauze, Secured with Tape -Other Covering abd -Optilok 6.5x10 1 1 -Silvercel 1 1 Left -Lotion applied to leg before Yes compression wrap -Multi-Layered Wrap Application Multi-Layer Multi-Layer Multi-Layer Comp - Left ($) Comp - Left ($) Comp - Left ($) Treatment Response Procedure Procedure Procedure Tolerated Well Tolerated Well Tolerated Well Vital Signs Temperature (97.8 F-99.1 F) 96.6 F L Temperature Source Temporal Pulse Rate (60-100) 70 Pulse Location Monitor Respiratory Rate (12-18) 18 Respiratory rate source Observation Blood Pressure (90/60-120/80) 145/82 H Blood Pressure Mean (mm Hg) 103 Source Monitor Position Semi-Fowlers Blood Pressure Location Left Arm Pain Scale: 0-10 Numeric Is Patient Pain Free? Yes Yes Yes WC - Visit Discharge Discharge Condition Stable Stable Stable Ambulatory Status Ambulatory Ambulatory Ambulatory Transportation Private Auto Private Auto Private Auto Medication Reconcilliation completed & No provided to patient/care provider Clinical Summary of Care Provided Yes Assessment/Plan Assessment/Plan (1) Venous insufficiency (chronic) (peripheral): CODE(S): I87.2 - Venous insufficiency (chronic) (peripheral) PLAN: Exam performed Neurovascular status intact, will consider arterial studies if there are any delays in healing Wound greater than 25% improved over 1 week of treatment Local infiltration block performed to left lower extremity medial ankle wound using 10 cc 2.0% lidocaine plain with aseptic technique Excisional debridement left lower leg wound performed with Nuevolution debrider Today left lower extremity wound was excisionally debrided down to including level of subcutaneous tissue of all nonviable tissue using Nuevolution debrider. Topical anesthesia was used. Pre and postdebridement measurements documented nursing notes. Patient tolerated procedure well. Hemostasis obtained with light compression. Wound was flushed with copious amounts normal sterile saline, swab culture taken Culture positive for Staph aureus, resistance to doxycycline noted. Antibiotics changed to Bactrim double strength twice a day. Discontinue Cipro and doxycycline. Today dressing was performed with Adaptic silver alginate dry sterile dressing and 3M compression. This will be changed once a week via nursing care visit. Will consider advanced wound care grafting pending any failures and local wound care Significant wound improvement noted today. Patient to follow-up in 1 week (2) Non-pressure chronic ulcer of left ankle with fat layer exposed: CODE(S): L97.322 - Non-pressure chronic ulcer of left ankle with fat layer exposed
[2023-10-13 11:08] VITALS: BP 123/77; PULSE 87; RESP 18; TEMP 36.1; BMI 31.7
[2023-10-17 09:19] VITALS: BP 155/72; PULSE 63; RESP 18; TEMP 36; BMI 31.7
--- NOTE | 2023-10-17 09:37 | PCM.WC.PN ---
History of Present Illness Date of Service: 10/17/23 History of Wound: 72-year-old male has had a wound since May 2023. Patient was chopping firewood and had a few piece of wood fall onto his left leg. Patient suffered a laceration was seen in the emergency department at that time which they flushed and cleaned the wound and closed it primarily after updating his tetanus status. Patient subsequently had his sutures removed and developed a full-thickness ulceration to his left medial leg. Patient had been performing self-care with daily dressing changes and noticed no healing, therefore, he presents today. Patient has no obvious medical problems and is not currently on any long-term medications. Patient does have bilateral lower extremity swelling. 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 Patient notes some pain to the wound site. Patient has no other complaints. Objective Data Objective Data Vital Signs: Vital Signs Temp Pulse Resp BP O2 Del Method 96.8 F L 63 18 155/72 H Room Air 10/17/23 09:19 10/17/23 09:19 10/17/23 09:19 10/17/23 09:19 10/10/23 09:10 Oxygen Delivery Method Room Air Weight: 106.141 kg Body Mass Index (BMI) 31.7 Lab / Micro Data Micro: Microbiology 10/03/23 09:43 Wound - Leg, Left Gram Stain - Final 10/03/23 09:43 Wound - Leg, Left Wound Culture - Final Staphylococcus aureus 10/03/23 09:43 Wound - Leg, Left Anaerobic Culture - Final No anaerobic bacteria isolated. Physical Exam Narrative Patient has palpable 2 out of 4 DP PT pulses to right lower extremity. Left lower extremity PT is palpable 2 out of 4. Dorsalis pedis is biphasic On Doppler examination. Patient has +2 pitting edema to bilateral lower extremity perimalleolar region with positive hemosiderin deposits and superficial varicosities. Patient has intact light touch protective sensation as well as deep tendon reflexes Achilles. No obvious clonus. Full-thickness wound noted to the medial left ankle along the course of the great saphenous vein with a mixed fibrogranular base. No overt signs of infection such as erythema malodor or purulent drainage warmth. There is some pain to the wound and periwound area. Musculoskeletal muscular strength full to bilateral lower extremity compartments. No wounds forming deformities noted. No sign DVT. Const alert and oriented x3 Debridement Note Debridement Note Post-Debridement Measurements and Additional Note: Post-Debridement Measurements/Treatment WC - Nurse 1 - General Ulcer Assessment Start: 10/03/23 08:28 Freq: Status: Active Protocol: MIKAELA Activity Type Activity Date Activity User E-sign Co-sign Detail Recorded Client Recorded Date Recorded By Document 10/03/23 09:02 RB Desktop 10/03/23 09:17 RB Document 10/06/23 12:24 RB [id number] 10/06/23 12:26 RB Document 10/10/23 09:10 BMF Desktop 10/10/23 09:18 BMF Document 10/13/23 11:08 RB [id number] 10/13/23 11:13 RB Document 10/17/23 09:19 RB Desktop 10/17/23 09:21 RB 10/03/23 10/06/23 10/10/23 09:02 12:24 09:10 - Today's Visit Information Type of service Initial Visit Nurse-only Follow-up Visit Visit (Physician/SALES REPRESENTATIVE CONSULTANT ) Arrival Mode Ambulatory Ambulatory Ambulatory Transfer Assistance None None None Patient Identification Verified (Name & Yes Yes Yes ) Patient Requires Transmission-Based No No No Precautions Height and Weight Height 6 ft Weight 106.141 kg Weight in Pounds 234.0 lbs Body Mass Index (BMI) 31.7 31.7 31.7 BMI Classification Obese Obese Obese BSA - Morris 2.28 Vital Signs Temperature (97.8 F-99.1 F) 97 F L 96.6 F L Temperature Source Temporal Temporal Pulse Rate (60-100) 67 70 83 Pulse Location Monitor Monitor Monitor Respiratory Rate (12-18) 18 18 16 Respiratory rate source Observation Observation Observation Oxygen Delivery Method Room Air Blood Pressure (90/60-120/80) 168/94 H 145/82 H 154/92 H Blood Pressure Mean (mm Hg) 118 103 112 Source Monitor Monitor Monitor Position Semi-Fowlers Semi-Fowlers Sitting Blood Pressure Location Left Arm Left Arm Right Arm History Since Last Visit- (Skip if this is Patient's initial visit) Have you changed medications since your No No last visit? Any new allergies or adverse reactions No No Had a fall/change in ADL's that may No No increase risk of falls Signs or symptoms of abuse and/or No No neglect since last visit Have you been in the hospital since your No No last visit? Has dressing in place as prescribed Yes Yes Has compression in place as prescribed Yes Yes Has offloadiing in place as prescribed No N/A Experienced any changes in pain level or No No management Left Footwear Regular Shoe Right Footwear Regular Shoe Pain Scale: 0-10 Numeric Is Patient Pain Free? Yes Yes Yes Lower Extremity Assessment/ Foot Assessment/ Toe Nail Assessment Right -Posterior Tibial Palpable Yes -Posterior Tibial Doppler Multiphasic -Dorsalis Pedis Palpable Yes -Dorsalis Pedis Doppler Multiphasic -Hair Growth on Legs Yes -Hair Growth on Toes No -Temperature of Extremity Cool -Capillary Refill Greater than 3 Seconds -Dependent Rubor No -Blanched when Elevated No -Lipodermatosclerosis No -Other Deformity No -Prior Foot Ulcer No -Charcot Joint No -Prior Amputation No -Thick No -Discolored No -Deformed No -Improper Length & Hygeine Yes Left -Posterior Tibial Palpable No -Posterior Tibial Doppler Monophasic -Dorsalis Pedis Palpable No -Dorsalis Pedis Doppler Monophasic -Extremity Color Hemosiderin -Hair Growth on Legs Yes -Hair Growth on Toes No -Temperature of Extremity Cool -Capillary Refill Greater than 3 Seconds -Dependent Rubor No -Blanched when Elevated No -Lipodermatosclerosis No -Other Deformity No -Prior Foot Ulcer No -Charcot Joint No -Prior Amputation No -Thick No -Discolored No -Deformed No -Improper Length & Hygeine Yes Neuropathy Assessment Feet - Top Side and Bottom <Entered> (a) Communication Assessment Preferred language Syriac Senior Research Associate Required No Able to Read Yes Able to Write Yes Communication Tools None Caregiver Communication Skills No Impairment Impairment Right Hearing Abillity Normal Left Hearing Abillity Normal Visual Assistive Devices Glasses Teaching Assessment Preferences Verbal,Written, Demonstration Barriers to Learning None Readiness To Learn Excellent Willingness to Engage in Self Management High Activies Readiness to Engage in Self Management High Activities Anxiety Level Calm Cooperation Cooperative Perception Coherent Interest in Health Problem Asks Questions Education Importance Acknowledges Need Does Patient Smoke tobacco or other No substances Smoking Status Former smoker Is Patient Diabetic No Functional Assessment Recent Decline in Ability to Perform Denies Any Declines Assistive Device With Patient No Culture/Methodist/Garage Supervisor Cultural/Methodist Needs that may affect No Treatment Plan Would you allow our hospital automobile washer steam to No meet you for the purpose of spiritual/ emotional support? Garage Supervisor to contact place of mormonism No Teaching: Wound Center *Welcome to the Wound Center -Person Taught Patient -Teaching Method Discussion, Demonstration -Response to teaching Verbalize understanding 10/13/23 10/17/23 11:08 09:19 WC - Today's Visit Information Type of service Nurse-only Follow-up Visit Visit (Physician/SALES REPRESENTATIVE CONSULTANT ) Arrival Mode Ambulatory Ambulatory Transfer Assistance None None Patient Identification Verified (Name & Yes Yes ) Patient Requires Transmission-Based No No Precautions Height and Weight Height Weight Weight in Pounds Body Mass Index (BMI) 31.7 31.7 BMI Classification Obese Obese BSA - Morris Vital Signs Temperature (97.8 F-99.1 F) 97 F L 96.8 F L Temperature Source Temporal Temporal Pulse Rate (60-100) 87 63 Pulse Location Monitor Monitor Respiratory Rate (12-18) 18 18 Respiratory rate source Observation Observation Oxygen Delivery Method Blood Pressure (90/60-120/80) 123/77 H 155/72 H Blood Pressure Mean (mm Hg) 92 99 Source Monitor Monitor Position Semi-Fowlers Sitting Blood Pressure Location Left Arm Left Arm History Since Last Visit- (Skip if this is Patient's initial visit) Have you changed medications since your No No last visit? Any new allergies or adverse reactions No No Had a fall/change in ADL's that may No No increase risk of falls Signs or symptoms of abuse and/or No No neglect since last visit Have you been in the hospital since your No No last visit? Has dressing in place as prescribed Yes Yes Has compression in place as prescribed Yes Yes Has offloadiing in place as prescribed No No Experienced any changes in pain level or No No management Left Footwear Right Footwear Pain Scale: 0-10 Numeric Is Patient Pain Free? Yes Yes Lower Extremity Assessment/ Foot Assessment/ Toe Nail Assessment Right -Posterior Tibial Palpable -Posterior Tibial Doppler -Dorsalis Pedis Palpable -Dorsalis Pedis Doppler -Hair Growth on Legs -Hair Growth on Toes -Temperature of Extremity -Capillary Refill -Dependent Rubor -Blanched when Elevated -Lipodermatosclerosis -Other Deformity -Prior Foot Ulcer -Charcot Joint -Prior Amputation -Thick -Discolored -Deformed -Improper Length & Hygeine Left -Posterior Tibial Palpable -Posterior Tibial Doppler -Dorsalis Pedis Palpable -Dorsalis Pedis Doppler -Extremity Color -Hair Growth on Legs -Hair Growth on Toes -Temperature of Extremity -Capillary Refill -Dependent Rubor -Blanched when Elevated -Lipodermatosclerosis -Other Deformity -Prior Foot Ulcer -Charcot Joint -Prior Amputation -Thick -Discolored -Deformed -Improper Length & Hygeine Neuropathy Assessment Feet - Top Side and Bottom Communication Assessment Preferred language interpreter Required Able to Read Able to Write Communication Tools Caregiver Communication Skills Impairment Right Hearing Abillity Left Hearing Abillity Visual Assistive Devices Teaching Assessment Preferences Barriers to Learning Readiness To Learn Willingness to Engage in Self Management Activies Readiness to Engage in Self Management Activities Anxiety Level Cooperation Perception Interest in Health Problem Education Importance Does Patient Smoke tobacco or other substances Smoking Status Is Patient Diabetic Functional Assessment Recent Decline in Ability to Perform Assistive Device With Patient Culture/Methodist/Garage Supervisor Cultural/Methodist Needs that may affect Treatment Plan Would you allow our [facility] automobile washer steam to meet you for the purpose of spiritual/ emotional support? Garage Supervisor to contact place of mormonism Teaching: Wound Center *Welcome to the Wound Center -Person Taught -Teaching Method -Response to teaching (a) 1 - + throughout WC - Nurse 1 - General Ulcer Measurement Start: 10/03/23 08:28 Freq: Status: Active Protocol: Activity Type Activity Date Activity User E-sign Co-sign Detail Recorded Client Recorded Date Recorded By Document 10/03/23 09:02 RB Desktop 10/03/23 09:17 RB Document 10/06/23 12:24 RB [id number] 10/06/23 12:26 RB Document 10/10/23 09:10 [facility] Desktop 10/10/23 09:18 [facility] Document 10/13/23 11:08 RB [id number] 10/13/23 11:13 RB Document 10/17/23 09:19 RB Desktop 10/17/23 09:21 RB 10/03/23 10/06/23 10/10/23 09:02 12:24 09:10 Wound Center Nurse 1 1. LLE -Combined with other wound No No -Current Size (cm) - Length 6.5 6 -Current Size (cm) - Width 4.5 3.6 -Current Size (cm) - Depth 0.2 0.3 -Total Square Cm 29.25 21.6 -Date of Last Picture (Recall this 10/10/23 field) -Photo Taken Yes Yes -Epithelialization Small 1-33% -Tunneling No No -Undermining/Tunneling No No -Circular Undermining No No -Exudate Amt Medium Medium -Exudate Type Serosanguineous Serosanguineous -Wound Margin Distinct, Distinct, Outline Outline Attached Attached -Granulation Amt Medium (34-66%) Medium (34-66%) -Granulation Quality Murdo Hyper- granulation,Red -Slough/Fibrin Yes Yes -Necrosis Amt Medium (34-66%) Medium (34-66%) -Necrotic Tissue Type Adherent Slough Adherent Slough -Structure Exposed N/A -Texture (Astrid-wound Skin Appearance) Assessed Assessed, Scarring -Moisture (Astrid-wound Skin Appearance) Assessed Assessed, Maceration -Color (Astrid-wound Skin Appearance) Assessed, Assessed, Hemosiderin Erythema Staining -Temperature (Astrid-wound Skin No Abnormality No Abnormality Appearance) (Pt Warm) (Pt Warm) -Tenderness on Palpation (Astrid-wound No No Skin Appearance) -Ulcer Cleansing Wound Cleanser Soap and Water -Foul Odor after Cleansing No No -Anesthetic Used 5% Lidocaine 4% Lidocaine Gel Solution Lower Limb Edema Present Yes Yes Yes Right Calf (cm) 41.5 Right Ankle (cm) 24.5 Left Calf (cm) 42 41 39.4 Left Ankle (cm) 24.2 23.6 23.5 10/13/23 10/17/23 11:08 09:19 Wound Center Nurse 1 1. LLE -Combined with other wound No -Current Size (cm) - Length 5.8 -Current Size (cm) - Width 3.7 -Current Size (cm) - Depth 0.2 -Total Square Cm 21.46 -Date of Last Picture (Recall this field) -Photo Taken -Epithelialization -Tunneling No -Undermining/Tunneling No -Circular Undermining No -Exudate Amt Large -Exudate Type Serosanguineous -Wound Margin Distinct, Outline Attached -Granulation Amt Medium (34-66%) -Granulation Quality Murdo,Red -Slough/Fibrin Yes -Necrosis Amt Small (1-33%) -Necrotic Tissue Type Adherent Slough -Structure Exposed N/A -Texture (Astrid-wound Skin Appearance) Assessed -Moisture (Astrid-wound Skin Appearance) Assessed -Color (Astrid-wound Skin Appearance) Hemosiderin Staining -Temperature (Astrid-wound Skin No Abnormality Appearance) (Pt Warm) -Tenderness on Palpation (Astrid-wound No Skin Appearance) -Ulcer Cleansing Wound Cleanser -Foul Odor after Cleansing No -Anesthetic Used 5% Lidocaine Gel Lower Limb Edema Present Yes Yes Right Calf (cm) Right Ankle (cm) Left Calf (cm) 40.5 40 Left Ankle (cm) 23.7 23.7 WC - Nurse 2 - General Ulcer CM Notes Start: 10/03/23 08:28 Freq: Status: Active Protocol: Activity Type Activity Date Activity User E-sign Co-sign Detail Recorded Client Recorded Date Recorded By Document 10/03/23 09:45 JF Laptop 10/03/23 09:49 JF Document 10/10/23 09:38 JF Laptop 10/10/23 09:48 JF Edit Result 10/10/23 09:38 JF (1) [id number] 10/11/23 06:32 PL Document 10/17/23 09:35 JF Laptop 10/17/23 09:36 JF (1) 1. LLE - Debridement, SubQ, ea addt'l 20sq cm => 1 or part thereof 10/03/23 10/10/23 10/17/23 09:45 09:38 09:35 Wound Center Nurse 2 1. LLE -Time 09:48 09:47 09:35 -Correct Patient Yes Yes Yes -Correct Side, Site, Position Yes Yes Yes -Correct Procedure Yes Yes Yes -Procedure Performed Yes Yes Yes -Type of Procedure Debridement Debridement Debridement -Clinical Debridement Subcutaneous Subcutaneous Subcutaneous -Tissue Removed Dermis Subcutaneous Subcutaneous -Post Debridement (cm) - Length 6.0 6.1 3.0 -Post Debridement (cm) - Width 4.5 3.7 5.8 -Post Debridement (cm) - Depth 0.2 0.2 0.2 -Total Square (Post) (cm) 27.00 22.57 17.40 -Area of Debridement (cm) - Length 6.0 6.1 3.0 -Area of Debridement (cm) - Width 4.5 3.7 5.8 -Total Square (Area) (cm) 27.00 22.57 17.40 -Tunneling No No No -Undermining/Tunneling No No No -Circular Undermining No No No -Wound/Ulcer Outcome Not Healed Not Healed Not Healed -Ulcer Cleansing Rinsed/ Rinsed/ Rinsed/ Irrigated with Irrigated with Irrigated with Saline Saline Saline -Foul Odor after Cleansing No No No -Bioengineered Tissue No No No -Bleeding Controlled with Pressure Pressure Pressure -Treatment Response Procedure Procedure Procedure Tolerated Well Tolerated Well Tolerated Well -Offloading No No No -Debridement - Subq, 1st 20sq cm Yes Yes Yes -Debridement, SubQ, ea addt'l 20sq cm 1 1 or part thereof Pain Scale: 0-10 Numeric Is Patient Pain Free? Yes Yes Yes WC - Nurse 3 - General Ulcer D/C NN Start: 10/03/23 08:28 Freq: Status: Active Protocol: Activity Type Activity Date Activity User E-sign Co-sign Detail Recorded Client Recorded Date Recorded By Document 10/03/23 10:09 DL Desktop 10/03/23 10:10 DL Document 10/06/23 12:24 RB [id number] 10/06/23 12:26 RB Document 10/10/23 10:01 BMF Desktop 10/10/23 10:02 BMF Document 10/13/23 11:08 RB [id number] 10/13/23 11:13 RB 10/03/23 10/06/23 10/10/23 10:09 12:24 10:01 Wound Care Center Nurse 3 1. LLE -Ulcer Cleansing Soap and Water -Foul Odor after Cleansing No -Primary Dressing Applied NonAdherent NonAdherent NonAdherent Contact Layer, Contact Layer, Contact Layer Optilok 6.5x10, Optilok 6.5x10, Silvercel Silvercel -Other Dressing silvercel -Primary Dressing Covered/Secured with Dry Gauze & Roll Gauze, Secured with Tape -Other Covering abd -Optilok 6.5x10 1 1 -Silvercel 1 1 Left -Lotion applied to leg before Yes compression wrap -Multi-Layered Wrap Application Multi-Layer Multi-Layer Multi-Layer Comp - Left ($) Comp - Left ($) Comp - Left ($) Treatment Response Procedure Procedure Procedure Tolerated Well Tolerated Well Tolerated Well Vital Signs Temperature (97.8 F-99.1 F) 96.6 F L Temperature Source Temporal Pulse Rate (60-100) 70 Pulse Location Monitor Respiratory Rate (12-18) 18 Respiratory rate source Observation Blood Pressure (90/60-120/80) 145/82 H Blood Pressure Mean (mm Hg) 103 Source Monitor Position Semi-Fowlers Blood Pressure Location Left Arm Pain Scale: 0-10 Numeric Is Patient Pain Free? Yes Yes Yes WC - Visit Discharge Discharge Condition Stable Stable Stable Ambulatory Status Ambulatory Ambulatory Ambulatory Transportation Private Auto Private Auto Private Auto Medication Reconcilliation completed & No provided to patient/care provider Clinical Summary of Care Provided Yes 10/13/23 11:08 Wound Care Center Nurse 3 1. LLE -Ulcer Cleansing Wound Cleanser -Foul Odor after Cleansing -Primary Dressing Applied NonAdherent Contact Layer, Optilok 6.5x10, Silvercel -Other Dressing -Primary Dressing Covered/Secured with -Other Covering -Optilok 6.5x10 1 -Silvercel 1 Left -Lotion applied to leg before compression wrap -Multi-Layered Wrap Application Multi-Layer Comp - Left ($) Treatment Response Procedure Tolerated Well Vital Signs Temperature (97.8 F-99.1 F) 97 F L Temperature Source Temporal Pulse Rate (60-100) 87 Pulse Location Monitor Respiratory Rate (12-18) 18 Respiratory rate source Observation Blood Pressure (90/60-120/80) 123/77 H Blood Pressure Mean (mm Hg) 92 Source Monitor Position Semi-Fowlers Blood Pressure Location Left Arm Pain Scale: 0-10 Numeric Is Patient Pain Free? Yes WC - Visit Discharge Discharge Condition Stable Ambulatory Status Ambulatory Transportation Private Auto Medication Reconcilliation completed & No provided to patient/care provider Clinical Summary of Care Provided Yes Assessment/Plan Assessment/Plan (1) Venous insufficiency (chronic) (peripheral): CODE(S): I87.2 - Venous insufficiency (chronic) (peripheral) PLAN: Exam performed Neurovascular status intact, will consider arterial studies if there are any delays in healing Wound greater than 25% improved over 1 week of treatment Excisional debridement left lower leg wound performed with Soapets debrider Today left lower extremity wound was excisionally debrided down to including level of subcutaneous tissue of all nonviable tissue using Soapets debrider. Topical anesthesia was used. Pre and postdebridement measurements documented nursing notes. Patient tolerated procedure well. Topical anesthesia used. Hemostasis obtained with light compression. Wound was flushed with copious amounts normal sterile saline, swab culture taken Culture positive for Staph aureus, resistance to doxycycline noted. Antibiotics changed to Bactrim double strength twice a day. Discontinue Cipro and doxycycline. Today dressing was performed with Adaptic silver alginate dry sterile dressing and 3M compression. This will be changed once a week via nursing care visit. Will consider advanced wound care grafting pending any failures and local wound care Significant wound improvement noted today. Patient to follow-up in 1 week (2) Non-pressure chronic ulcer of left ankle with fat layer exposed: CODE(S): L97.322 - Non-pressure chronic ulcer of left ankle with fat layer exposed
[2023-10-20 12:35] VITALS: BP 157/92; PULSE 71; RESP 18; TEMP 36.8; BMI 31.7
[2023-10-24 08:53] VITALS: BP 160/97; PULSE 75; RESP 18; TEMP 36.4; BMI 31.7
--- NOTE | 2023-10-24 09:17 | PN.PCM_ITS ---
History of Present Illness Date of Service: 10/24/23 History of Wound: 72-year-old male has had a wound since May 2023. Patient was chopping firewood and had a few piece of wood fall onto his left leg. Patient suffered a laceration was seen in the emergency department at that time which they flushed and cleaned the wound and closed it primarily after updating his tetanus status. Patient subsequently had his sutures removed and developed a full-thickness ulceration to his left medial leg. Patient had been performing self-care with daily dressing changes and noticed no healing, therefore, he presents today. Patient has no obvious medical problems and is not currently on any long-term medications. Patient does have bilateral lower extremity swelling. 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 Patient notes some pain to the wound site. Patient has no other complaints. Objective Data Objective Data Vital Signs: Vital Signs Temp Pulse Resp BP O2 Del Method 97.5 F L 75 18 160/97 H Room Air 10/24/23 08:53 10/24/23 08:53 10/24/23 08:53 10/24/23 08:53 10/24/23 08:53 Oxygen Delivery Method Room Air Weight: 106.141 kg Body Mass Index (BMI) 31.7 Lab / Micro Data Micro: Microbiology 10/03/23 09:43 Wound - Leg, Left Gram Stain - Final 10/03/23 09:43 Wound - Leg, Left Wound Culture - Final Staphylococcus aureus 10/03/23 09:43 Wound - Leg, Left Anaerobic Culture - Final No anaerobic bacteria isolated. Physical Exam Narrative Patient has palpable 2 out of 4 DP PT pulses to right lower extremity. Left lower extremity PT is palpable 2 out of 4. Dorsalis pedis is biphasic On Doppler examination. Patient has +2 pitting edema to bilateral lower extremity perimalleolar region with positive hemosiderin deposits and superficial varicosities. Patient has intact light touch protective sensation as well as deep tendon reflexes Achilles. No obvious clonus. Full-thickness wound noted to the medial left ankle along the course of the great saphenous vein with a mixed fibrogranular base. No overt signs of infection such as erythema malodor or purulent drainage warmth. There is some pain to the wound and periwound area. Musculoskeletal muscular strength full to bilateral lower extremity compartments. No wounds forming deformities noted. No sign DVT. Const alert and oriented x3 Debridement Note Debridement Note Post-Debridement Measurements and Additional Note: Post-Debridement Measurements/Treatment WC - Nurse 1 - General Ulcer Assessment Start: 10/03/23 08:28 Freq: Status: Active Protocol: MIKAELA Activity Type Activity Date Activity User E-sign Co-sign Detail Recorded Client Recorded Date Recorded By Document 10/03/23 09:02 RB Desktop 10/03/23 09:17 RB Document 10/06/23 12:24 RB [id number] 10/06/23 12:26 RB Document 10/10/23 09:10 BMF Desktop 10/10/23 09:18 BMF Document 10/13/23 11:08 RB [id number] 10/13/23 11:13 RB Document 10/17/23 09:19 RB Desktop 10/17/23 09:21 RB Document 10/20/23 12:35 RB [id number] 10/20/23 12:41 RB Document 10/24/23 08:53 KW Desktop 10/24/23 08:58 KW 10/03/23 10/06/23 10/10/23 09:02 12:24 09:10 - Today's Visit Information Type of service Initial Visit Nurse-only Follow-up Visit Visit (Physician/DIESEL BUS MECHANIC ) Arrival Mode Ambulatory Ambulatory Ambulatory Transfer Assistance None None None Patient Identification Verified (Name & Yes Yes Yes ) Patient Requires Transmission-Based No No No Precautions Height and Weight Height 6 ft Weight 106.141 kg Weight in Pounds 234.0 lbs Body Mass Index (BMI) 31.7 31.7 31.7 BMI Classification Obese Obese Obese BSA - Morris 2.28 Vital Signs Temperature (97.8 F-99.1 F) 97 F L 96.6 F L Temperature Source Temporal Temporal Pulse Rate (60-100) 67 70 83 Pulse Location Monitor Monitor Monitor Respiratory Rate (12-18) 18 18 16 Respiratory rate source Observation Observation Observation Oxygen Delivery Method Room Air Blood Pressure (90/60-120/80) 168/94 H 145/82 H 154/92 H Blood Pressure Mean (mm Hg) 118 103 112 Source Monitor Monitor Monitor Position Semi-Fowlers Semi-Fowlers Sitting Blood Pressure Location Left Arm Left Arm Right Arm History Since Last Visit- (Skip if this is Patient's initial visit) Have you changed medications since your No No last visit? Any new allergies or adverse reactions No No Had a fall/change in ADL's that may No No increase risk of falls Signs or symptoms of abuse and/or No No neglect since last visit Have you been in the hospital since your No No last visit? Has dressing in place as prescribed Yes Yes Has compression in place as prescribed Yes Yes Has offloadiing in place as prescribed No N/A Experienced any changes in pain level or No No management Left Footwear Regular Shoe Right Footwear Regular Shoe Pain Scale: 0-10 Numeric Is Patient Pain Free? Yes Yes Yes Lower Extremity Assessment/ Foot Assessment/ Toe Nail Assessment Right -Posterior Tibial Palpable Yes -Posterior Tibial Doppler Multiphasic -Dorsalis Pedis Palpable Yes -Dorsalis Pedis Doppler Multiphasic -Hair Growth on Legs Yes -Hair Growth on Toes No -Temperature of Extremity Cool -Capillary Refill Greater than 3 Seconds -Dependent Rubor No -Blanched when Elevated No -Lipodermatosclerosis No -Other Deformity No -Prior Foot Ulcer No -Charcot Joint No -Prior Amputation No -Thick No -Discolored No -Deformed No -Improper Length & Hygeine Yes Left -Posterior Tibial Palpable No -Posterior Tibial Doppler Monophasic -Dorsalis Pedis Palpable No -Dorsalis Pedis Doppler Monophasic -Extremity Color Hemosiderin -Hair Growth on Legs Yes -Hair Growth on Toes No -Temperature of Extremity Cool -Capillary Refill Greater than 3 Seconds -Dependent Rubor No -Blanched when Elevated No -Lipodermatosclerosis No -Other Deformity No -Prior Foot Ulcer No -Charcot Joint No -Prior Amputation No -Thick No -Discolored No -Deformed No -Improper Length & Hygeine Yes Neuropathy Assessment Feet - Top Side and Bottom <Entered> (a) Communication Assessment Preferred language Cuban Paint Crew Supervisor Required No Able to Read Yes Able to Write Yes Communication Tools None Caregiver Communication Skills No Impairment Impairment Right Hearing Abillity Normal Left Hearing Abillity Normal Visual Assistive Devices Glasses Teaching Assessment Preferences Verbal,Written, Demonstration Barriers to Learning None Readiness To Learn Excellent Willingness to Engage in Self Management High Activies Readiness to Engage in Self Management High Activities Anxiety Level Calm Cooperation Cooperative Perception Coherent Interest in Health Problem Asks Questions Education Importance Acknowledges Need Does Patient Smoke tobacco or other No substances Smoking Status Former smoker Is Patient Diabetic No Functional Assessment Recent Decline in Ability to Perform Denies Any Declines Assistive Device With Patient No Culture/Gnosticist/Steam Fitter Supervisor Maintenance Cultural/Gnosticist Needs that may affect No Treatment Plan Would you allow our hospital mixing machine attendant to No meet you for the purpose of spiritual/ emotional support? Steam Fitter Supervisor Maintenance to contact place of religious No Teaching: Wound Center *Welcome to the Wound Center -Person Taught Patient -Teaching Method Discussion, Demonstration -Response to teaching Verbalize understanding 10/13/23 10/17/23 10/20/23 11:08 09:19 12:35 WC - Today's Visit Information Type of service Nurse-only Follow-up Visit Nurse-only Visit (Physician/DIESEL BUS MECHANIC Visit ) Arrival Mode Ambulatory Ambulatory Ambulatory Transfer Assistance None None None Patient Identification Verified (Name & Yes Yes Yes ) Patient Requires Transmission-Based No No No Precautions Height and Weight Height Weight Weight in Pounds Body Mass Index (BMI) 31.7 31.7 31.7 BMI Classification Obese Obese Obese BSA - Morris Vital Signs Temperature (97.8 F-99.1 F) 97 F L 96.8 F L 98.2 F Temperature Source Temporal Temporal Temporal Pulse Rate (60-100) 87 63 71 Pulse Location Monitor Monitor Monitor Respiratory Rate (12-18) 18 18 18 Respiratory rate source Observation Observation Observation Oxygen Delivery Method Blood Pressure (90/60-120/80) 123/77 H 155/72 H 157/92 H Blood Pressure Mean (mm Hg) 92 99 113 Source Monitor Monitor Monitor Position Semi-Fowlers Sitting Semi-Fowlers Blood Pressure Location Left Arm Left Arm Left Arm History Since Last Visit- (Skip if this is Patient's initial visit) Have you changed medications since your No No No last visit? Any new allergies or adverse reactions No No No Had a fall/change in ADL's that may No No No increase risk of falls Signs or symptoms of abuse and/or No No No neglect since last visit Have you been in the hospital since your No No No last visit? Has dressing in place as prescribed Yes Yes Yes Has compression in place as prescribed Yes Yes Yes Has offloadiing in place as prescribed No No No Experienced any changes in pain level or No No No management Left Footwear Right Footwear Pain Scale: 0-10 Numeric Is Patient Pain Free? Yes Yes Yes Lower Extremity Assessment/ Foot Assessment/ Toe Nail Assessment Right -Posterior Tibial Palpable -Posterior Tibial Doppler -Dorsalis Pedis Palpable -Dorsalis Pedis Doppler -Hair Growth on Legs -Hair Growth on Toes -Temperature of Extremity -Capillary Refill -Dependent Rubor -Blanched when Elevated -Lipodermatosclerosis -Other Deformity -Prior Foot Ulcer -Charcot Joint -Prior Amputation -Thick -Discolored -Deformed -Improper Length & Hygeine Left -Posterior Tibial Palpable -Posterior Tibial Doppler -Dorsalis Pedis Palpable -Dorsalis Pedis Doppler -Extremity Color -Hair Growth on Legs -Hair Growth on Toes -Temperature of Extremity -Capillary Refill -Dependent Rubor -Blanched when Elevated -Lipodermatosclerosis -Other Deformity -Prior Foot Ulcer -Charcot Joint -Prior Amputation -Thick -Discolored -Deformed -Improper Length & Hygeine Neuropathy Assessment Feet - Top Side and Bottom Communication Assessment Preferred senior sales consultant Required Able to Read Able to Write Communication Tools Caregiver Communication Skills Impairment Right Hearing Abillity Left Hearing Abillity Visual Assistive Devices Teaching Assessment Preferences Barriers to Learning Readiness To Learn Willingness to Engage in Self Management Activies Readiness to Engage in Self Management Activities Anxiety Level Cooperation Perception Interest in Health Problem Education Importance Does Patient Smoke tobacco or other substances Smoking Status Is Patient Diabetic Functional Assessment Recent Decline in Ability to Perform Assistive Device With Patient Culture/Gnosticist/Steam Fitter Supervisor Maintenance Cultural/Gnosticist Needs that may affect Treatment Plan Would you allow our hospital mixing machine attendant to meet you for the purpose of spiritual/ emotional support? Steam Fitter Supervisor Maintenance to contact place of religious Teaching: Wound Center *Welcome to the Wound Center -Person Taught -Teaching Method -Response to teaching 10/24/23 08:53 WC - Today's Visit Information Type of service Follow-up Visit (Physician/DIESEL BUS MECHANIC ) Arrival Mode Ambulatory Transfer Assistance Patient Identification Verified (Name & Yes ) Patient Requires Transmission-Based Precautions Height and Weight Height Weight Weight in Pounds Body Mass Index (BMI) 31.7 BMI Classification Obese BSA - Morris Vital Signs Temperature (97.8 F-99.1 F) 97.5 F L Temperature Source Temporal Pulse Rate (60-100) 75 Pulse Location Monitor Respiratory Rate (12-18) 18 Respiratory rate source Observation Oxygen Delivery Method Room Air Blood Pressure (90/60-120/80) 160/97 H Blood Pressure Mean (mm Hg) 118 Source Monitor Position Semi-Fowlers Blood Pressure Location Left Arm History Since Last Visit- (Skip if this is Patient's initial visit) Have you changed medications since your No last visit? Any new allergies or adverse reactions No Had a fall/change in ADL's that may No increase risk of falls Signs or symptoms of abuse and/or No neglect since last visit Have you been in the hospital since your No last visit? Has dressing in place as prescribed Yes Has compression in place as prescribed Yes Has offloadiing in place as prescribed N/A Experienced any changes in pain level or No management Left Footwear Regular Shoe Right Footwear Regular Shoe Pain Scale: 0-10 Numeric Is Patient Pain Free? Yes Lower Extremity Assessment/ Foot Assessment/ Toe Nail Assessment Right -Posterior Tibial Palpable -Posterior Tibial Doppler -Dorsalis Pedis Palpable -Dorsalis Pedis Doppler -Hair Growth on Legs -Hair Growth on Toes -Temperature of Extremity -Capillary Refill -Dependent Rubor -Blanched when Elevated -Lipodermatosclerosis -Other Deformity -Prior Foot Ulcer -Charcot Joint -Prior Amputation -Thick -Discolored -Deformed -Improper Length & Hygeine Left -Posterior Tibial Palpable -Posterior Tibial Doppler -Dorsalis Pedis Palpable -Dorsalis Pedis Doppler -Extremity Color -Hair Growth on Legs -Hair Growth on Toes -Temperature of Extremity -Capillary Refill -Dependent Rubor -Blanched when Elevated -Lipodermatosclerosis -Other Deformity -Prior Foot Ulcer -Charcot Joint -Prior Amputation -Thick -Discolored -Deformed -Improper Length & Hygeine Neuropathy Assessment Feet - Top Side and Bottom Communication Assessment Preferred senior sales consultant Required Able to Read Able to Write Communication Tools Caregiver Communication Skills Impairment Right Hearing Abillity Left Hearing Abillity Visual Assistive Devices Teaching Assessment Preferences Barriers to Learning Readiness To Learn Willingness to Engage in Self Management Activies Readiness to Engage in Self Management Activities Anxiety Level Cooperation Perception Interest in Health Problem Education Importance Does Patient Smoke tobacco or other substances Smoking Status Is Patient Diabetic Functional Assessment Recent Decline in Ability to Perform Assistive Device With Patient Culture/Gnosticist/Steam Fitter Supervisor Maintenance Cultural/Gnosticist Needs that may affect Treatment Plan Would you allow our hospital mixing machine attendant to meet you for the purpose of spiritual/ emotional support? Steam Fitter Supervisor Maintenance to contact place of religious Teaching: Wound Center *Welcome to the Wound Center -Person Taught -Teaching Method -Response to teaching (a) 1 - + throughout WC - Nurse 1 - General Ulcer Measurement Start: 10/03/23 08:28 Freq: Status: Active Protocol: Activity Type Activity Date Activity User E-sign Co-sign Detail Recorded Client Recorded Date Recorded By Document 10/03/23 09:02 RB Desktop 10/03/23 09:17 RB Document 10/06/23 12:24 RB [id number] 10/06/23 12:26 RB Document 10/10/23 09:10 BMF Desktop 10/10/23 09:18 BMF Document 10/13/23 11:08 RB [id number] 10/13/23 11:13 RB Document 10/17/23 09:19 RB Desktop 10/17/23 09:21 RB Document 10/20/23 12:35 RB [id number] 10/20/23 12:41 RB Document 10/24/23 08:53 KW Desktop 10/24/23 08:58 KW 10/03/23 10/06/23 10/10/23 09:02 12:24 09:10 Wound Center Nurse 1 1. LLE -Combined with other wound No No -Current Size (cm) - Length 6.5 6 -Current Size (cm) - Width 4.5 3.6 -Current Size (cm) - Depth 0.2 0.3 -Total Square Cm 29.25 21.6 -Date of Last Picture (Recall this 10/10/23 field) -Photo Taken Yes Yes -Epithelialization Small 1-33% -Tunneling No No -Undermining/Tunneling No No -Circular Undermining No No -Exudate Amt Medium Medium -Exudate Type Serosanguineous Serosanguineous -Wound Margin Distinct, Distinct, Outline Outline Attached Attached -Granulation Amt Medium (34-66%) Medium (34-66%) -Granulation Quality [place] Hyper- granulation,Red -Slough/Fibrin Yes Yes -Necrosis Amt Medium (34-66%) Medium (34-66%) -Necrotic Tissue Type Adherent Slough Adherent Slough -Structure Exposed N/A -Texture (Astrid-wound Skin Appearance) Assessed Assessed, Scarring -Moisture (Astrid-wound Skin Appearance) Assessed Assessed, Maceration -Color (Astrid-wound Skin Appearance) Assessed, Assessed, Hemosiderin Erythema Staining -Temperature (Astrid-wound Skin No Abnormality No Abnormality Appearance) (Pt Warm) (Pt Warm) -Tenderness on Palpation (Astrid-wound No No Skin Appearance) -Ulcer Cleansing Wound Cleanser Soap and Water -Foul Odor after Cleansing No No -Anesthetic Used 5% Lidocaine 4% Lidocaine Gel Solution Lower Limb Edema Present Yes Yes Yes Right Calf (cm) 41.5 Right Ankle (cm) 24.5 Left Calf (cm) 42 41 39.4 Left Ankle (cm) 24.2 23.6 23.5 10/13/23 10/17/23 10/20/23 11:08 09:19 12:35 Wound Center Nurse 1 1. LLE -Combined with other wound No -Current Size (cm) - Length 5.8 -Current Size (cm) - Width 3.7 -Current Size (cm) - Depth 0.2 -Total Square Cm 21.46 -Date of Last Picture (Recall this field) -Photo Taken -Epithelialization -Tunneling No -Undermining/Tunneling No -Circular Undermining No -Exudate Amt Large -Exudate Type Serosanguineous -Wound Margin Distinct, Outline Attached -Granulation Amt Medium (34-66%) -Granulation Quality [place],Red -Slough/Fibrin Yes -Necrosis Amt Small (1-33%) -Necrotic Tissue Type Adherent Slough -Structure Exposed N/A -Texture (Astrid-wound Skin Appearance) Assessed -Moisture (Astrid-wound Skin Appearance) Assessed -Color (Astrid-wound Skin Appearance) Hemosiderin Staining -Temperature (Astrid-wound Skin No Abnormality Appearance) (Pt Warm) -Tenderness on Palpation (Astrid-wound No Skin Appearance) -Ulcer Cleansing Wound Cleanser -Foul Odor after Cleansing No -Anesthetic Used 5% Lidocaine Gel Lower Limb Edema Present Yes Yes Yes Right Calf (cm) Right Ankle (cm) Left Calf (cm) 40.5 40 40 Left Ankle (cm) 23.7 23.7 23.5 10/24/23 08:53 Wound Center Nurse 1 1. LLE -Combined with other wound -Current Size (cm) - Length 6 -Current Size (cm) - Width 3.1 -Current Size (cm) - Depth 0.1 -Total Square Cm 18.6 -Date of Last Picture (Recall this field) -Photo Taken -Epithelialization -Tunneling -Undermining/Tunneling -Circular Undermining -Exudate Amt Medium -Exudate Type Serosanguineous -Wound Margin Distinct, Outline Attached -Granulation Amt Large (67-100%) -Granulation Quality Red -Slough/Fibrin -Necrosis Amt Small (1-33%) -Necrotic Tissue Type Adherent Slough -Structure Exposed -Texture (Astrid-wound Skin Appearance) Assessed -Moisture (Astrid-wound Skin Appearance) Assessed -Color (Astrid-wound Skin Appearance) Assessed -Temperature (Astrid-wound Skin No Abnormality Appearance) (Pt Warm) -Tenderness on Palpation (Astrid-wound Skin Appearance) -Ulcer Cleansing Soap and Water -Foul Odor after Cleansing -Anesthetic Used 5% Lidocaine Gel Lower Limb Edema Present Right Calf (cm) Right Ankle (cm) Left Calf (cm) 39.2 Left Ankle (cm) 23.3 WC - Nurse 2 - General Ulcer CM Notes Start: 10/03/23 08:28 Freq: Status: Active Protocol: Activity Type Activity Date Activity User E-sign Co-sign Detail Recorded Client Recorded Date Recorded By Document 10/03/23 09:45 JF Laptop 10/03/23 09:49 JF Document 10/10/23 09:38 JF Laptop 10/10/23 09:48 JF Edit Result 10/10/23 09:38 JF (1) [id number] 10/11/23 06:32 PL Document 10/17/23 09:35 JF Laptop 10/17/23 09:36 JF Document 10/24/23 09:13 JF Laptop 10/24/23 09:15 JF (1) 1. LLE - Debridement, SubQ, ea addt'l 20sq cm => 1 or part thereof 10/03/23 10/10/23 10/17/23 09:45 09:38 09:35 Wound Center Nurse 2 1. LLE -Time 09:48 09:47 09:35 -Correct Patient Yes Yes Yes -Correct Side, Site, Position Yes Yes Yes -Correct Procedure Yes Yes Yes -Procedure Performed Yes Yes Yes -Type of Procedure Debridement Debridement Debridement -Clinical Debridement Subcutaneous Subcutaneous Subcutaneous -Tissue Removed Dermis Subcutaneous Subcutaneous -Post Debridement (cm) - Length 6.0 6.1 3.0 -Post Debridement (cm) - Width 4.5 3.7 5.8 -Post Debridement (cm) - Depth 0.2 0.2 0.2 -Total Square (Post) (cm) 27.00 22.57 17.40 -Area of Debridement (cm) - Length 6.0 6.1 3.0 -Area of Debridement (cm) - Width 4.5 3.7 5.8 -Total Square (Area) (cm) 27.00 22.57 17.40 -Tunneling No No No -Undermining/Tunneling No No No -Circular Undermining No No No -Wound/Ulcer Outcome Not Healed Not Healed Not Healed -Ulcer Cleansing Rinsed/ Rinsed/ Rinsed/ Irrigated with Irrigated with Irrigated with Saline Saline Saline -Foul Odor after Cleansing No No No -Bioengineered Tissue No No No -Type of Bioengineered Tissue -Expiration Date -Product Lot Number -Percent Used -Lot number of Saline Used -Bleeding Controlled with Pressure Pressure Pressure -Treatment Response Procedure Procedure Procedure Tolerated Well Tolerated Well Tolerated Well -Offloading No No No -Debridement - Subq, 1st 20sq cm Yes Yes Yes -Debridement, SubQ, ea addt'l 20sq cm 1 1 or part thereof -Apply Skin Sub - 1st 25 sq cm - Legs -Epifix Mesh (per sq cm) Pain Scale: 0-10 Numeric Is Patient Pain Free? Yes Yes Yes 10/24/23 09:13 Wound Center Nurse 2 1. LLE -Time -Correct Patient Yes -Correct Side, Site, Position Yes -Correct Procedure Yes -Procedure Performed Yes -Type of Procedure Debridement -Clinical Debridement Subcutaneous -Tissue Removed Subcutaneous -Post Debridement (cm) - Length 3 -Post Debridement (cm) - Width 5.8 -Post Debridement (cm) - Depth 0.1 -Total Square (Post) (cm) 17.4 -Area of Debridement (cm) - Length 3.0 -Area of Debridement (cm) - Width 5.8 -Total Square (Area) (cm) 17.40 -Tunneling No -Undermining/Tunneling No -Circular Undermining No -Wound/Ulcer Outcome Not Healed -Ulcer Cleansing Rinsed/ Irrigated with Saline -Foul Odor after Cleansing No -Bioengineered Tissue Yes -Type of Bioengineered Tissue Epifix Mesh -Expiration Date 04/28/28 -Product Lot Number [id number] -Percent Used 100 -Lot number of Saline Used [id number] -Bleeding Controlled with Pressure -Treatment Response Procedure Tolerated Well -Offloading No -Debridement - Subq, 1st 20sq cm No -Debridement, SubQ, ea addt'l 20sq cm or part thereof -Apply Skin Sub - 1st 25 sq cm - Legs 1 -Epifix Mesh (per sq cm) 11 Pain Scale: 0-10 Numeric Is Patient Pain Free? Yes WC - Nurse 3 - General Ulcer D/C NN Start: 10/03/23 08:28 Freq: Status: Active Protocol: Activity Type Activity Date Activity User E-sign Co-sign Detail Recorded Client Recorded Date Recorded By Document 10/03/23 10:09 DL Desktop 10/03/23 10:10 DL Document 10/06/23 12:24 RB [id number] 10/06/23 12:26 RB Document 10/10/23 10:01 BMF Desktop 10/10/23 10:02 BMF Document 10/13/23 11:08 RB [id number] 10/13/23 11:13 RB Document 10/17/23 09:48 DL Desktop 10/17/23 09:49 DL Document 10/20/23 12:35 RB [id number] 10/20/23 12:41 RB 10/03/23 10/06/23 10/10/23 10:09 12:24 10:01 Wound Care Center Nurse 3 1. LLE -Ulcer Cleansing Soap and Water -Foul Odor after Cleansing No -Primary Dressing Applied NonAdherent NonAdherent NonAdherent Contact Layer, Contact Layer, Contact Layer Optilok 6.5x10, Optilok 6.5x10, Silvercel Silvercel -Other Dressing silvercel -Primary Dressing Covered/Secured with Dry Gauze & Roll Gauze, Secured with Tape -Other Covering abd -Optilok 6.5x10 1 1 -Silvercel 1 1 Left -Lotion applied to leg before Yes compression wrap -Multi-Layered Wrap Application Multi-Layer Multi-Layer Multi-Layer Comp - Left ($) Comp - Left ($) Comp - Left ($) Treatment Response Procedure Procedure Procedure Tolerated Well Tolerated Well Tolerated Well Vital Signs Temperature (97.8 F-99.1 F) 96.6 F L Temperature Source Temporal Pulse Rate (60-100) 70 Pulse Location Monitor Respiratory Rate (12-18) 18 Respiratory rate source Observation Blood Pressure (90/60-120/80) 145/82 H Blood Pressure Mean (mm Hg) 103 Source Monitor Position Semi-Fowlers Blood Pressure Location Left Arm Pain Scale: 0-10 Numeric Is Patient Pain Free? Yes Yes Yes WC - Visit Discharge Discharge Condition Stable Stable Stable Ambulatory Status Ambulatory Ambulatory Ambulatory Transportation Private Auto Private Auto Private Auto Medication Reconcilliation completed & No provided to patient/care provider Clinical Summary of Care Provided Yes 10/13/23 10/17/23 10/20/23 11:08 09:48 12:35 Wound Care Center Nurse 3 1. LLE -Ulcer Cleansing Wound Cleanser Soap and Water Wound Cleanser -Foul Odor after Cleansing No -Primary Dressing Applied NonAdherent NonAdherent Optilok 6.5x10 Contact Layer, Contact Layer, Optilok 6.5x10, Optilok 6.5x10, Silvercel Silvercel -Other Dressing SILVERCEL -Primary Dressing Covered/Secured with Dry Gauze & Roll Gauze, Secured with Tape -Other Covering -Optilok 6.5x10 1 1 1 -[employer] 1 1 Left -Lotion applied to leg before compression wrap -Multi-Layered Wrap Application Multi-Layer Multi-Layer Multi-Layer Comp - Left ($) Comp - Left ($) Comp - Right ($ ) Treatment Response Procedure Procedure Procedure Tolerated Well Tolerated Well Tolerated Well Vital Signs Temperature (97.8 F-99.1 F) 97 F L 98.2 F Temperature Source Temporal Temporal Pulse Rate (60-100) 87 71 Pulse Location Monitor Monitor Respiratory Rate (12-18) 18 18 Respiratory rate source Observation Observation Blood Pressure (90/60-120/80) 123/77 H 157/92 H Blood Pressure Mean (mm Hg) 92 113 Source Monitor Monitor Position Semi-Fowlers Semi-Fowlers Blood Pressure Location Left Arm Left Arm Pain Scale: 0-10 Numeric Is Patient Pain Free? Yes Yes Yes WC - Visit Discharge Discharge Condition Stable Stable Stable Ambulatory Status Ambulatory Ambulatory Ambulatory Transportation Private Auto Private Auto Private Auto Medication Reconcilliation completed & No No provided to patient/care provider Clinical Summary of Care Provided Yes Yes Assessment/Plan Assessment/Plan (1) Venous insufficiency (chronic) (peripheral): CODE(S): I87.2 - Venous insufficiency (chronic) (peripheral) PLAN: Exam performed Neurovascular status intact, will consider arterial studies if there are any delays in healing Wound greater than 25% improved over 1 week of treatment Excisional debridement left lower leg wound performed with [employer] [place] debrider Today left lower extremity wound was excisionally debrided down to including lev el of subcutaneous tissue of all nonviable tissue using [employer] [place] debrider. Topical anesthesia was used. Pre and postdebridement measurements documented nursing notes. Patient tolerated procedure well. Topical anesthesia used. Hemostasis obtained with light compression. Wound was flushed with copious amounts normal sterile saline, swab culture taken No additional antibiotics needed at this time Today EpiFix graft was applied 4 x 4.5 cm meshed graft, 11 billing units to its entirety to the left leg wound. Entire graft used, no waste. This was stabilized with overlying Adaptic, 4 x 4's, DSD and 3M compression dressing. Patient will follow-up for nursing dressing change and next week for additional care. Significant wound improvement noted today. Patient to follow-up in 1 week (2) Non-pressure chronic ulcer of left ankle with fat layer exposed: CODE(S): L97.322 - Non-pressure chronic ulcer of left ankle with fat layer exposed
== END 2023-10-26 23:59 | disposition home or self-care (01) ==
LOC: WC 09:00
PROVIDERS: PCP Family Medicine; Referring Provider Family Medicine; Visit Provider Podiatrist
DX: L97.322 Non-pressure chronic ulcer of left ankle with fat layer exposed (principal); I87.2 Venous insufficiency (chronic) (peripheral); S81.812S Laceration without foreign body, left lower leg, sequela; W20.8XXS Other cause of strike by thrown, projected or falling object, sequela; R60.0 Localized edema; Z79.51 Long term (current) use of inhaled steroids; Z79.01 Long term (current) use of anticoagulants; Z79.899 Other long term (current) drug therapy; Z87.891 Personal history of nicotine dependence
CPT/HCPCS: 11042; 11045; 15271; 29581; 87070; 87075; 87077; 87186; 87205; 99213; Q4186; G0463

== ENCOUNTER 2023-11-21 09:00 | Outpatient (RCR) | payer MEDICARE, OTHER, SELFPAY ==
[2023-10-27 00:07] VITALS: BP 160/97; PULSE 75; RESP 18; TEMP 36.4; BMI 31.7
[2023-10-31 09:13] VITALS: BP 145/77; PULSE 63; RESP 18; TEMP 36.5; BMI 31.7
--- NOTE | 2023-10-31 09:28 | PCM.WC.PN ---
History of Present Illness Date of Service: 10/31/23 History of Wound: 72-year-old male has had a wound since May 2023. Patient was chopping firewood and had a few piece of wood fall onto his left leg. Patient suffered a laceration was seen in the emergency department at that time which they flushed and cleaned the wound and closed it primarily after updating his tetanus status. Patient subsequently had his sutures removed and developed a full-thickness ulceration to his left medial leg. Patient had been performing self-care with daily dressing changes and noticed no healing, therefore, he presents today. Patient has no obvious medical problems and is not currently on any long-term medications. Patient does have bilateral lower extremity swelling. 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 Patient notes some pain to the wound site. Patient has no other complaints. Progress of Wound: Wound improving no issues today. Objective Data Objective Data Vital Signs: Vital Signs Temp Pulse Resp BP 97.7 F L 63 18 145/77 H 10/31/23 09:13 10/31/23 09:13 10/31/23 09:13 10/31/23 09:13 Weight: 106.141 kg Body Mass Index (BMI) 31.7 Physical Exam Narrative Patient has palpable 2 out of 4 DP PT pulses to right lower extremity. Left lower extremity PT is palpable 2 out of 4. Dorsalis pedis is biphasic On Doppler examination. Patient has +2 pitting edema to bilateral lower extremity perimalleolar region with positive hemosiderin deposits and superficial varicosities. Patient has intact light touch protective sensation as well as deep tendon reflexes Achilles. No obvious clonus. Full-thickness wound noted to the medial left ankle along the course of the great saphenous vein with a mixed fibrogranular base. No overt signs of infection such as erythema malodor or purulent drainage warmth. There is some pain to the wound and periwound area. Musculoskeletal muscular strength full to bilateral lower extremity compartments. No wounds forming deformities noted. No sign DVT. Const alert and oriented x3 Debridement Note Debridement Note Post-Debridement Measurements and Additional Note: Post-Debridement Measurements/Treatment KIRSTY - Nurse 1 - General Ulcer Assessment Start: 10/31/23 09:12 Freq: Status: Active Protocol: MIKAELA Activity Type Activity Date Activity User E-sign Co-sign Detail Recorded Client Recorded Date Recorded By Document 10/31/23 09:13 Desktop 10/31/23 09:15 10/31/23 09:13 WC - Today's Visit Information Type of service Follow-up Visit (Physician/INTERNATIONAL MARKETING SPECIALIST ) Arrival Mode Ambulatory Transfer Assistance None Patient Identification Verified (Name & Yes ) Patient Requires Transmission-Based No Precautions Height and Weight Body Mass Index (BMI) 31.7 BMI Classification Obese Vital Signs Temperature (97.8 F-99.1 F) 97.7 F L Temperature Source Temporal Pulse Rate (60-100) 63 Respiratory Rate (12-18) 18 Blood Pressure (90/60-120/80) 145/77 H Blood Pressure Mean (mm Hg) 99 Source Monitor Position Semi-Fowlers Blood Pressure Location Left Arm History Since Last Visit- (Skip if this is Patient's initial visit) Have you changed medications since your No last visit? Any new allergies or adverse reactions No Had a fall/change in ADL's that may No increase risk of falls Signs or symptoms of abuse and/or No neglect since last visit Have you been in the hospital since your No last visit? Has dressing in place as prescribed Yes Has compression in place as prescribed Yes Has offloadiing in place as prescribed No Experienced any changes in pain level or No management Pain Scale: 0-10 Numeric Is Patient Pain Free? Yes - Nurse 1 - General Ulcer Measurement Start: 10/31/23 09:12 Freq: Status: Active Protocol: Activity Type Activity Date Activity User E-sign Co-sign Detail Recorded Client Recorded Date Recorded By Document 10/31/23 09:13 [employer] 10/31/23 09:15 10/31/23 09:13 Wound Center Nurse 1 1. LLE -Combined with other wound No -Current Size (cm) - Length 5.7 -Current Size (cm) - Width 3.1 -Current Size (cm) - Depth 0.1 -Total Square Cm 17.67 -Photo Taken Yes -Tunneling No -Undermining/Tunneling No -Circular Undermining No -Exudate Amt Large -Exudate Type Serosanguineous -Wound Margin Distinct, Outline Attached -Granulation Amt Medium (34-66%) -Granulation Quality [place] -Slough/Fibrin Yes -Necrosis Amt Medium (34-66%) -Necrotic Tissue Type Adherent Slough -Structure Exposed N/A -Texture (Astrid-wound Skin Appearance) Assessed, Scarring -Moisture (Astrid-wound Skin Appearance) Assessed -Color (Astrid-wound Skin Appearance) Assessed -Temperature (Astrid-wound Skin No Abnormality Appearance) (Pt Warm) -Tenderness on Palpation (Astrid-wound No Skin Appearance) -Ulcer Cleansing Wound Cleanser -Foul Odor after Cleansing No -Anesthetic Used 5% Lidocaine Gel Lower Limb Edema Present Yes Left Calf (cm) 41 Left Ankle (cm) 24.5 WC - Nurse 2 - General Ulcer CM Notes Start: 10/31/23 09:12 Freq: Status: Active Protocol: Activity Type Activity Date Activity User E-sign Co-sign Detail Recorded Client Recorded Date Recorded By Document 10/31/23 09:23 Laptop 10/31/23 09:25 10/31/23 09:23 Wound Center Nurse 2 1. LLE -Correct Patient Yes -Correct Side, Site, Position Yes -Correct Procedure Yes -Procedure Performed Yes -Type of Procedure Debridement -Clinical Debridement Subcutaneous -Tissue Removed Subcutaneous -Post Debridement (cm) - Length 2.8 -Post Debridement (cm) - Width 5.5 -Post Debridement (cm) - Depth 0.1 -Total Square (Post) (cm) 15.40 -Area of Debridement (cm) - Length 2.8 -Area of Debridement (cm) - Width 5.5 -Total Square (Area) (cm) 15.40 -Tunneling No -Undermining/Tunneling No -Circular Undermining No -Wound/Ulcer Outcome Not Healed -Ulcer Cleansing Rinsed/ Irrigated with Saline -Foul Odor after Cleansing No -Bioengineered Tissue Yes -Type of Bioengineered Tissue Epifix Mesh -Expiration Date 05/28/28 -Product Lot Number [id number] -Percent Used 100 -Lot number of Saline Used [id number] -Bleeding Controlled with Pressure -Treatment Response Procedure Tolerated Well -Offloading No -Debridement - Subq, 1st 20sq cm No -Apply Skin Sub - 1st 25 sq cm - Legs 1 -Epifix Mesh (per sq cm) 11 Pain Scale: 0-10 Numeric Is Patient Pain Free? Yes Assessment/Plan Assessment/Plan (1) Venous insufficiency (chronic) (peripheral): CODE(S): I87.2 - Venous insufficiency (chronic) (peripheral) PLAN: Exam performed Neurovascular status intact, will consider arterial studies if there are any delays in healing Wound greater than 25% improved over 1 week of treatment Excisional debridement left lower leg wound performed with [employer] debrider Today left lower extremity wound was excisionally debrided down to including level of subcutaneous tissue of all nonviable tissue using [employer] debrider. Topical anesthesia was used. Pre and postdebridement measurements documented nursing notes. Patient tolerated procedure well. Topical anesthesia used. Hemostasis obtained with light compression. Wound was flushed with copious amounts normal sterile saline, swab culture taken No additional antibiotics needed at this time Today EpiFix graft was applied 4 x 4.5 cm meshed graft, 11 billing units to its entirety to the left leg wound. Entire graft used, no waste. This was stabilized with overlying Adaptic, 4 x 4's, DSD and 3M compression dressing. Patient will follow-up for nursing dressing change and next week for additional care. Significant wound improvement noted today. Patient to follow-up in 1 week (2) Non-pressure chronic ulcer of left ankle with fat layer exposed: CODE(S): L97.322 - Non-pressure chronic ulcer of left ankle with fat layer exposed
[2023-11-07 09:07] VITALS: BP 156/72; PULSE 64; RESP 18; TEMP 35.7; BMI 31.7
--- NOTE | 2023-11-07 09:28 | PN.PCM_ITS ---
History of Present Illness Date of Service: 11/07/23 History of Wound: 72-year-old male has had a wound since May 2023. Patient was chopping firewood and had a few piece of wood fall onto his left leg. Patient suffered a laceration was seen in the emergency department at that time which they flushed and cleaned the wound and closed it primarily after updating his tetanus status. Patient subsequently had his sutures removed and developed a full-thickness ulceration to his left medial leg. Patient had been performing self-care with daily dressing changes and noticed no healing, therefore, he presents today. Patient has no obvious medical problems and is not currently on any long-term medications. Patient does have bilateral lower extremity swelling. 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 Patient notes some pain to the wound site. Patient has no other complaints. Progress of Wound: Wound improving no issues today. Objective Data Objective Data Vital Signs: Vital Signs Temp Pulse Resp BP 96.2 F L 64 18 156/72 H 11/07/23 09:07 11/07/23 09:07 11/07/23 09:07 11/07/23 09:07 Weight: 106.141 kg Body Mass Index (BMI) 31.7 Physical Exam Narrative Patient has palpable 2 out of 4 DP PT pulses to right lower extremity. Left lower extremity PT is palpable 2 out of 4. Dorsalis pedis is biphasic On Doppler examination. Patient has +2 pitting edema to bilateral lower extremity perimalleolar region with positive hemosiderin deposits and superficial varicosities. Patient has intact light touch protective sensation as well as deep tendon reflexes Achilles. No obvious clonus. Full-thickness wound noted to the medial left ankle along the course of the great saphenous vein with a mixed fibrogranular base. No overt signs of infection such as erythema malodor or purulent drainage warmth. There is some pain to the wound and periwound area. Musculoskeletal muscular strength full to bilateral lower extremity compartments. No wounds forming deformities noted. No sign DVT. Const alert and oriented x3 Debridement Note Debridement Note Post-Debridement Measurements and Additional Note: Post-Debridement Measurements/Treatment KIRSTY - Nurse 1 - General Ulcer Assessment Start: 10/31/23 09:12 Freq: Status: Active Protocol: MIKAELA Activity Type Activity Date Activity User E-sign Co-sign Detail Recorded Client Recorded Date Recorded By Document 10/31/23 09:13 RB Desktop 10/31/23 09:15 RB Document 11/07/23 09:07 RB Desktop 11/07/23 09:09 RB 10/31/23 11/07/23 09:13 09:07 - Today's Visit Information Type of service Follow-up Visit Follow-up Visit (Physician/CLINICAL EDUCATION COORDINATOR (Physician/CLINICAL EDUCATION COORDINATOR ) ) Arrival Mode Ambulatory Ambulatory Transfer Assistance None None Patient Identification Verified (Name & Yes Yes ) Patient Requires Transmission-Based No No Precautions Height and Weight Body Mass Index (BMI) 31.7 31.7 BMI Classification Obese Obese Vital Signs Temperature (97.8 F-99.1 F) 97.7 F L 96.2 F L Temperature Source Temporal Temporal Pulse Rate (60-100) 63 64 Pulse Location Monitor Respiratory Rate (12-18) 18 18 Respiratory rate source Observation Blood Pressure (90/60-120/80) 145/77 H 156/72 H Blood Pressure Mean (mm Hg) 99 100 Source Monitor Monitor Position Semi-Fowlers Semi-Fowlers Blood Pressure Location Left Arm Left Arm History Since Last Visit- (Skip if this is Patient's initial visit) Have you changed medications since your No No last visit? Any new allergies or adverse reactions No No Had a fall/change in ADL's that may No No increase risk of falls Signs or symptoms of abuse and/or No No neglect since last visit Have you been in the hospital since your No No last visit? Has dressing in place as prescribed Yes Yes Has compression in place as prescribed Yes Yes Has offloadiing in place as prescribed No No Experienced any changes in pain level or No No management Pain Scale: 0-10 Numeric Is Patient Pain Free? Yes Yes - Nurse 1 - General Ulcer Measurement Start: 10/31/23 09:12 Freq: Status: Active Protocol: Activity Type Activity Date Activity User E-sign Co-sign Detail Recorded Client Recorded Date Recorded By Document 10/31/23 09:13 RB Desktop 10/31/23 09:15 RB Document 11/07/23 09:07 RB Desktop 11/07/23 09:09 RB 10/31/23 11/07/23 09:13 09:07 Wound Center Nurse 1 1. LLE -Combined with other wound No No -Current Size (cm) - Length 5.7 5.5 -Current Size (cm) - Width 3.1 3 -Current Size (cm) - Depth 0.1 0.1 -Total Square Cm 17.67 16.5 -Photo Taken Yes -Tunneling No No -Undermining/Tunneling No No -Circular Undermining No No -Exudate Amt Large Medium -Exudate Type Serosanguineous Serosanguineous -Wound Margin Distinct, Distinct, Outline Outline Attached Attached -Granulation Amt Medium (34-66%) Medium (34-66%) -Granulation Quality [place] -Slough/Fibrin Yes Yes -Necrosis Amt Medium (34-66%) Small (1-33%) -Necrotic Tissue Type Adherent Slough Adherent Slough -Structure Exposed N/A N/A -Texture (Astrid-wound Skin Appearance) Assessed, Assessed Scarring -Moisture (Astrid-wound Skin Appearance) Assessed Assessed -Color (Astrid-wound Skin Appearance) Assessed Assessed -Temperature (Astrid-wound Skin No Abnormality No Abnormality Appearance) (Pt Warm) (Pt Warm) -Tenderness on Palpation (Astrid-wound No No Skin Appearance) -Ulcer Cleansing Wound Cleanser Wound Cleanser -Foul Odor after Cleansing No No -Anesthetic Used 5% Lidocaine 5% Lidocaine Gel Gel Lower Limb Edema Present Yes Yes Left Calf (cm) 41 40 Left Ankle (cm) 24.5 23.2 - Nurse 2 - General Ulcer CM Notes Start: 10/31/23 09:12 Freq: Status: Active Protocol: Activity Type Activity Date Activity User E-sign Co-sign Detail Recorded Client Recorded Date Recorded By Document 10/31/23 09:23 [employer] Laptop 10/31/23 09:25 Document 11/07/23 09:14 Laptop 11/07/23 09:17 10/31/23 11/07/23 09:23 09:14 Wound Center Nurse 2 1. LLE -Time 09:15 -Correct Patient Yes Yes -Correct Side, Site, Position Yes Yes -Correct Procedure Yes Yes -Procedure Performed Yes Yes -Type of Procedure Debridement Debridement -Clinical Debridement Subcutaneous Subcutaneous -Tissue Removed Subcutaneous Subcutaneous -Post Debridement (cm) - Length 2.8 6.0 -Post Debridement (cm) - Width 5.5 3.0 -Post Debridement (cm) - Depth 0.1 0.1 -Total Square (Post) (cm) 15.40 18.00 -Area of Debridement (cm) - Length 2.8 6.0 -Area of Debridement (cm) - Width 5.5 3.0 -Total Square (Area) (cm) 15.40 18.00 -Tunneling No No -Undermining/Tunneling No No -Circular Undermining No No -Wound/Ulcer Outcome Not Healed Not Healed -Ulcer Cleansing Rinsed/ Rinsed/ Irrigated with Irrigated with Saline Saline -Foul Odor after Cleansing No No -Bioengineered Tissue Yes Yes -Type of Bioengineered Tissue Epifix Mesh Epifix Mesh -Expiration Date 05/28/28 05/28/28 -Product Lot Number [id number] -Percent Used 100 100 -Lot number of Saline Used [id number] -Bleeding Controlled with Pressure Pressure -Treatment Response Procedure Procedure Tolerated Well Tolerated Well -Offloading No No -Debridement - Subq, 1st 20sq cm No No -Apply Skin Sub - 1st 25 sq cm - Legs 1 1 -Epifix Mesh (per sq cm) 11 11 Pain Scale: 0-10 Numeric Is Patient Pain Free? Yes Yes - Nurse 3 - General Ulcer D/C NN Start: 10/31/23 09:12 Freq: Status: Active Protocol: Activity Type Activity Date Activity User E-sign Co-sign Detail Recorded Client Recorded Date Recorded By Document 10/31/23 09:39 RB Desktop 10/31/23 09:40 RB Document 11/07/23 09:24 KW Desktop 11/07/23 09:24 KW 10/31/23 11/07/23 09:39 09:24 Wound Care Center Nurse 3 1. LLE -Primary Dressing Applied Mepilex Border -Other Dressing abd pad -Mepilex Border 2 Left -Multi-Layered Wrap Application Multi-Layer Comp - Left ($) -Tubular Bandage Double Layer -Size of Tubigrip Used Size E -Size E ($) 2 Treatment Response Procedure Tolerated Well Pain Scale: 0-10 Numeric Is Patient Pain Free? Yes Yes - Visit Discharge Discharge Condition Stable Stable Ambulatory Status Ambulatory Ambulatory Transportation Private Auto Private Auto Medication Reconcilliation completed & No No provided to patient/care provider Clinical Summary of Care Provided Yes Yes Assessment/Plan Assessment/Plan (1) Venous insufficiency (chronic) (peripheral): CODE(S): I87.2 - Venous insufficiency (chronic) (peripheral) PLAN: Exam performed Neurovascular status intact, will consider arterial studies if there are any delays in healing Wound greater than 25% improved over 1 week of treatment Excisional debridement left lower leg wound performed with [employer] debrider Today left lower extremity wound was excisionally debrided down to including level of subcutaneous tissue of all nonviable tissue using [employer] debrider. Topical anesthesia was used. Pre and postdebridement measurements documented nursing notes. Patient tolerated procedure well. Topical anesthesia used. Hemostasis obtained with light compression. Wound was flushed with copious amounts normal sterile saline, swab culture taken No additional antibiotics needed at this time Today EpiFix graft was applied 4 x 4.5 cm meshed graft, 11 billing units to its entirety to the left leg wound. Entire graft used, no waste. This was stabilized with overlying Adaptic, 4 x 4's, DSD and 3M compression dressing. Patient will follow-up for nursing dressing change and next week for additional care. Significant wound improvement noted today. Patient to follow-up in 1 week (2) Non-pressure chronic ulcer of left ankle with fat layer exposed: CODE(S): L97.322 - Non-pressure chronic ulcer of left ankle with fat layer exposed
[2023-11-14 09:20] VITALS: BP 150/90; PULSE 73; RESP 18; TEMP 36.3; BMI 31.7
--- NOTE | 2023-11-14 09:32 | PCM.WC.PN ---
History of Present Illness Date of Service: 11/14/23 History of Wound: 72-year-old male has had a wound since May 2023. Patient was chopping firewood and had a few piece of wood fall onto his left leg. Patient suffered a laceration was seen in the emergency department at that time which they flushed and cleaned the wound and closed it primarily after updating his tetanus status. Patient subsequently had his sutures removed and developed a full-thickness ulceration to his left medial leg. Patient had been performing self-care with daily dressing changes and noticed no healing, therefore, he presents today. Patient has no obvious medical problems and is not currently on any long-term medications. Patient does have bilateral lower extremity swelling. 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 Patient notes some pain to the wound site. Patient has no other complaints. Progress of Wound: Wound improving no issues today. Objective Data Objective Data Vital Signs: Vital Signs Temp Pulse Resp BP O2 Del Method 97.4 F L 73 18 150/90 H Room Air 11/14/23 09:20 11/14/23 09:20 11/14/23 09:20 11/14/23 09:20 11/14/23 09:20 Oxygen Delivery Method Room Air Weight: 106.141 kg Body Mass Index (BMI) 31.7 Physical Exam Narrative Patient has palpable 2 out of 4 DP PT pulses to right lower extremity. Left lower extremity PT is palpable 2 out of 4. Dorsalis pedis is biphasic On Doppler examination. Patient has +2 pitting edema to bilateral lower extremity perimalleolar region with positive hemosiderin deposits and superficial varicosities. Patient has intact light touch protective sensation as well as deep tendon reflexes Achilles. No obvious clonus. Full-thickness wound noted to the medial left ankle along the course of the great saphenous vein with a mixed fibrogranular base. No overt signs of infection such as erythema malodor or purulent drainage warmth. There is some pain to the wound and periwound area. Musculoskeletal muscular strength full to bilateral lower extremity compartments. No wounds forming deformities noted. No sign DVT. Const alert and oriented x3 Debridement Note Debridement Note Post-Debridement Measurements and Additional Note: Post-Debridement Measurements/Treatment WC - Nurse 1 - General Ulcer Assessment Start: 10/31/23 09:12 Freq: Status: Active Protocol: WC.LOWEXT Activity Type Activity Date Activity User E-sign Co-sign Detail Recorded Client Recorded Date Recorded By Document 10/31/23 09:13 RB Desktop 10/31/23 09:15 RB Document 11/07/23 09:07 RB Desktop 11/07/23 09:09 RB Document 11/14/23 09:20 JF Laptop 11/14/23 09:22 JF 10/31/23 11/07/23 11/14/23 09:13 09:07 09:20 - Today's Visit Information Type of service Follow-up Visit Follow-up Visit Follow-up Visit (Physician/CAN LINE EXAMINER (Physician/CAN LINE EXAMINER (Physician/CAN LINE EXAMINER ) ) ) Arrival Mode Ambulatory Ambulatory Ambulatory Transfer Assistance None None Patient Identification Verified (Name & Yes Yes Yes ) Patient Requires Transmission-Based No No Precautions Height and Weight Body Mass Index (BMI) 31.7 31.7 31.7 BMI Classification Obese Obese Obese Vital Signs Temperature (97.8 F-99.1 F) 97.7 F L 96.2 F L 97.4 F L Temperature Source Temporal Temporal Temporal Pulse Rate (60-100) 63 64 73 Pulse Location Monitor Monitor Respiratory Rate (12-18) 18 18 18 Respiratory rate source Observation Observation Oxygen Delivery Method Room Air Blood Pressure (90/60-120/80) 145/77 H 156/72 H 150/90 H Blood Pressure Mean (mm Hg) 99 100 110 Source Monitor Monitor Monitor Position Semi-Fowlers Semi-Fowlers Semi-Fowlers Blood Pressure Location Left Arm Left Arm Left Arm History Since Last Visit- (Skip if this is Patient's initial visit) Have you changed medications since your No No No last visit? Any new allergies or adverse reactions No No No Had a fall/change in ADL's that may No No No increase risk of falls Signs or symptoms of abuse and/or No No No neglect since last visit Have you been in the hospital since your No No No last visit? Has dressing in place as prescribed Yes Yes Yes Has compression in place as prescribed Yes Yes Yes Has offloadiing in place as prescribed No No N/A Experienced any changes in pain level or No No No management Left Footwear Regular Shoe Right Footwear Regular Shoe Pain Scale: 0-10 Numeric Is Patient Pain Free? Yes Yes Yes - Nurse 1 - General Ulcer Measurement Start: 10/31/23 09:12 Freq: Status: Active Protocol: Activity Type Activity Date Activity User E-sign Co-sign Detail Recorded Client Recorded Date Recorded By Document 10/31/23 09:13 RB Desktop 10/31/23 09:15 RB Document 11/07/23 09:07 RB Desktop 11/07/23 09:09 RB Document 11/14/23 09:20 JF Laptop 11/14/23 09:22 JF 10/31/23 11/07/23 11/14/23 09:13 09:07 09:20 Wound Center Nurse 1 1. LLE -Combined with other wound No No -Current Size (cm) - Length 5.7 5.5 5 -Current Size (cm) - Width 3.1 3 2.4 -Current Size (cm) - Depth 0.1 0.1 0.1 -Total Square Cm 17.67 16.5 12.0 -Photo Taken Yes -Epithelialization Small 1-33% -Tunneling No No -Undermining/Tunneling No No -Circular Undermining No No -Exudate Amt Large Medium Small -Exudate Type Serosanguineous Serosanguineous Serosanguineous -Wound Margin Distinct, Distinct, Outline Outline Attached Attached -Granulation Amt Medium (34-66%) Medium (34-66%) Large (67-100%) -Granulation Quality [place] Red Red -Slough/Fibrin Yes Yes -Necrosis Amt Medium (34-66%) Small (1-33%) -Necrotic Tissue Type Adherent Slough Adherent Slough -Structure Exposed N/A N/A -Texture (Astrid-wound Skin Appearance) Assessed, Assessed Assessed Scarring -Moisture (Astrid-wound Skin Appearance) Assessed Assessed Assessed -Color (Astrid-wound Skin Appearance) Assessed Assessed Assessed -Temperature (Astrid-wound Skin No Abnormality No Abnormality Appearance) (Pt Warm) (Pt Warm) -Tenderness on Palpation (Astrid-wound No No Skin Appearance) -Ulcer Cleansing Wound Cleanser Wound Cleanser Rinsed/ Irrigated with Saline -Foul Odor after Cleansing No No No -Anesthetic Used 5% Lidocaine 5% Lidocaine 5% Lidocaine Gel Gel Gel Lower Limb Edema Present Yes Yes Left Calf (cm) 41 40 39 Left Ankle (cm) 24.5 23.2 24 WC - Nurse 2 - General Ulcer CM Notes Start: 10/31/23 09:12 Freq: Status: Active Protocol: Activity Type Activity Date Activity User E-sign Co-sign Detail Recorded Client Recorded Date Recorded By Document 10/31/23 09:23 MARIAMA Laptop 10/31/23 09:25 JF Document 11/07/23 09:14 JF Laptop 11/07/23 09:17 JF Document 11/14/23 09:27 JF Laptop 11/14/23 09:29 10/31/23 11/07/23 11/14/23 09:23 09:14 09:27 Wound Center Nurse 2 1. LLE -Time 09:15 09:28 -Correct Patient Yes Yes Yes -Correct Side, Site, Position Yes Yes Yes -Correct Procedure Yes Yes Yes -Procedure Performed Yes Yes Yes -Type of Procedure Debridement Debridement Debridement -Clinical Debridement Subcutaneous Subcutaneous Subcutaneous -Tissue Removed Subcutaneous Subcutaneous Subcutaneous -Post Debridement (cm) - Length 2.8 6.0 5.2 -Post Debridement (cm) - Width 5.5 3.0 2.5 -Post Debridement (cm) - Depth 0.1 0.1 0.1 -Total Square (Post) (cm) 15.40 18.00 13.00 -Area of Debridement (cm) - Length 2.8 6.0 5.2 -Area of Debridement (cm) - Width 5.5 3.0 2.5 -Total Square (Area) (cm) 15.40 18.00 13.00 -Tunneling No No No -Undermining/Tunneling No No No -Circular Undermining No No No -Wound/Ulcer Outcome Not Healed Not Healed Not Healed -Ulcer Cleansing Rinsed/ Rinsed/ Rinsed/ Irrigated with Irrigated with Irrigated with Saline Saline Saline -Foul Odor after Cleansing No No No -Bioengineered Tissue Yes Yes Yes -Type of Bioengineered Tissue Epifix Mesh Epifix Mesh Epifix Mesh -Expiration Date 05/28/28 05/28/28 05/28/28 -Product Lot Number [id number] -Percent Used 100 100 100 -Lot number of Saline Used [id number] -Bleeding Controlled with Pressure Pressure Pressure -Treatment Response Procedure Procedure Procedure Tolerated Well Tolerated Well Tolerated Well -Offloading No No No -Debridement - Subq, 1st 20sq cm No No No -Apply Skin Sub - 1st 25 sq cm - Legs 1 1 1 -Epifix Mesh (per sq cm) 11 11 11 Pain Scale: 0-10 Numeric Is Patient Pain Free? Yes Yes Yes WC - Nurse 3 - General Ulcer D/C NN Start: 10/31/23 09:12 Freq: Status: Active Protocol: Activity Type Activity Date Activity User E-sign Co-sign Detail Recorded Client Recorded Date Recorded By Document 10/31/23 09:39 RB Desktop 10/31/23 09:40 RB Document 11/07/23 09:24 KW Desktop 11/07/23 09:24 KW Edit Result 11/07/23 09:24 KW (1) Desktop 11/07/23 09:32 RB (1) 1. LLE - Other Dressing => hydrogel - Mepilex Border 2 => 1 10/31/23 11/07/23 09:39 09:24 Wound Care Center Nurse 3 1. LLE -Primary Dressing Applied Mepilex Border -Other Dressing abd pad hydrogel -Mepilex Border 1 Left -Multi-Layered Wrap Application Multi-Layer Comp - Left ($) -Tubular Bandage Double Layer -Size of Tubigrip Used Size E -Size E ($) 2 Treatment Response Procedure Tolerated Well Pain Scale: 0-10 Numeric Is Patient Pain Free? Yes Yes - Visit Discharge Discharge Condition Stable Stable Ambulatory Status Ambulatory Ambulatory Transportation Private Auto Private Auto Medication Reconcilliation completed & No No provided to patient/care provider Clinical Summary of Care Provided Yes Yes Assessment/Plan Assessment/Plan (1) Venous insufficiency (chronic) (peripheral): CODE(S): I87.2 - Venous insufficiency (chronic) (peripheral) PLAN: Exam performed Neurovascular status intact, will consider arterial studies if there are any delays in healing Wound decreased in size. No infection. Today left lower extremity wound was excisionally debrided down to including level of subcutaneous tissue of all nonviable tissue using 3 mm dermal curette. Topical anesthesia was used. Pre and postdebridement measurements documented nursing notes. Patient tolerated procedure well. Topical anesthesia used. Hemostasis obtained with light compression. Wound was flushed with copious amounts normal sterile saline, swab culture taken No additional antibiotics needed at this time Today EpiFix graft was applied 4 x 4.5 cm meshed graft, 11 billing units to its entirety to the left leg wound. Entire graft used, no waste. This was stabilized with overlying Adaptic, 4 x 4's, DSD and 3M compression dressing. Patient will follow-up for nursing dressing change and next week for additional care. Significant wound improvement noted today. Patient to follow-up in 1 week (2) Non-pressure chronic ulcer of left ankle with fat layer exposed: CODE(S): L97.322 - Non-pressure chronic ulcer of left ankle with fat layer exposed
--- NOTE | 2023-11-14 10:37 | PN.PCM_ITS ---
History of Present Illness Date of Service: 11/14/23 History of Wound: 72-year-old male has had a wound since May 2023. Patient was chopping firewood and had a few piece of wood fall onto his left leg. Patient suffered a laceration was seen in the emergency department at that time which they flushed and cleaned the wound and closed it primarily after updating his tetanus status. Patient subsequently had his sutures removed and developed a full-thickness ulceration to his left medial leg. Patient had been performing self-care with daily dressing changes and noticed no healing, therefore, he presents today. Patient has no obvious medical problems and is not currently on any long-term medications. Patient does have bilateral lower extremity swelling. 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 Patient notes some pain to the wound site. Patient has no other complaints. Progress of Wound: Wound improving no issues today. Objective Data Objective Data Vital Signs: Vital Signs Temp Pulse Resp BP O2 Del Method 97.4 F L 73 18 150/90 H Room Air 11/14/23 09:20 11/14/23 09:20 11/14/23 09:20 11/14/23 09:20 11/14/23 09:20 Oxygen Delivery Method Room Air Weight: 106.141 kg Body Mass Index (BMI) 31.7 Physical Exam Narrative Patient has palpable 2 out of 4 DP PT pulses to right lower extremity. Left lower extremity PT is palpable 2 out of 4. Dorsalis pedis is biphasic On Doppler examination. Patient has +2 pitting edema to bilateral lower extremity perimalleolar region with positive hemosiderin deposits and superficial varicosities. Patient has intact light touch protective sensation as well as deep tendon reflexes Achilles. No obvious clonus. Full-thickness wound noted to the medial left ankle along the course of the great saphenous vein with a stable granular base. Wound decreased in size. No overt signs of infection such as erythema malodor or purulent drainage warmth. There is some pain to the wound and periwound area. Musculoskeletal muscular strength full to bilateral lower extremity compartments. No wounds forming deformities noted. No sign DVT. Const alert and oriented x3 Debridement Note Debridement Note Post-Debridement Measurements and Additional Note: Post-Debridement Measurements/Treatment KIRSTY - Nurse 1 - General Ulcer Assessment Start: 10/31/23 09:12 Freq: Status: Active Protocol: COLTONT Activity Type Activity Date Activity User E-sign Co-sign Detail Recorded Client Recorded Date Recorded By Document 10/31/23 09:13 RB Desktop 10/31/23 09:15 RB Document 11/07/23 09:07 RB Desktop 11/07/23 09:09 RB Document 11/14/23 09:20 JF Laptop 11/14/23 09:22 JF 10/31/23 11/07/23 11/14/23 09:13 09:07 09:20 - Today's Visit Information Type of service Follow-up Visit Follow-up Visit Follow-up Visit (Physician/MAINTENANCE ENGINEER (Physician/MAINTENANCE ENGINEER (Physician/MAINTENANCE ENGINEER ) ) ) Arrival Mode Ambulatory Ambulatory Ambulatory Transfer Assistance None None Patient Identification Verified (Name & Yes Yes Yes ) Patient Requires Transmission-Based No No Precautions Height and Weight Body Mass Index (BMI) 31.7 31.7 31.7 BMI Classification Obese Obese Obese Vital Signs Temperature (97.8 F-99.1 F) 97.7 F L 96.2 F L 97.4 F L Temperature Source Temporal Temporal Temporal Pulse Rate (60-100) 63 64 73 Pulse Location Monitor Monitor Respiratory Rate (12-18) 18 18 18 Respiratory rate source Observation Observation Oxygen Delivery Method Room Air Blood Pressure (90/60-120/80) 145/77 H 156/72 H 150/90 H Blood Pressure Mean (mm Hg) 99 100 110 Source Monitor Monitor Monitor Position Semi-Fowlers Semi-Fowlers Semi-Fowlers Blood Pressure Location Left Arm Left Arm Left Arm History Since Last Visit- (Skip if this is Patient's initial visit) Have you changed medications since your No No No last visit? Any new allergies or adverse reactions No No No Had a fall/change in ADL's that may No No No increase risk of falls Signs or symptoms of abuse and/or No No No neglect since last visit Have you been in the hospital since your No No No last visit? Has dressing in place as prescribed Yes Yes Yes Has compression in place as prescribed Yes Yes Yes Has offloadiing in place as prescribed No No N/A Experienced any changes in pain level or No No No management Left Footwear Regular Shoe Right Footwear Regular Shoe Pain Scale: 0-10 Numeric Is Patient Pain Free? Yes Yes Yes - Nurse 1 - General Ulcer Measurement Start: 10/31/23 09:12 Freq: Status: Active Protocol: Activity Type Activity Date Activity User E-sign Co-sign Detail Recorded Client Recorded Date Recorded By Document 10/31/23 09:13 RB Desktop 10/31/23 09:15 RB Document 11/07/23 09:07 RB Desktop 11/07/23 09:09 RB Document 11/14/23 09:20 JF Laptop 11/14/23 09:22 JF 10/31/23 11/07/23 11/14/23 09:13 09:07 09:20 Wound Center Nurse 1 1. LLE -Combined with other wound No No -Current Size (cm) - Length 5.7 5.5 5 -Current Size (cm) - Width 3.1 3 2.4 -Current Size (cm) - Depth 0.1 0.1 0.1 -Total Square Cm 17.67 16.5 12.0 -Photo Taken Yes -Epithelialization Small 1-33% -Tunneling No No -Undermining/Tunneling No No -Circular Undermining No No -Exudate Amt Large Medium Small -Exudate Type Serosanguineous Serosanguineous Serosanguineous -Wound Margin Distinct, Distinct, Outline Outline Attached Attached -Granulation Amt Medium (34-66%) Medium (34-66%) Large (67-100%) -Granulation Quality [place] Red Red -Slough/Fibrin Yes Yes -Necrosis Amt Medium (34-66%) Small (1-33%) -Necrotic Tissue Type Adherent Slough Adherent Slough -Structure Exposed N/A N/A -Texture (Astrid-wound Skin Appearance) Assessed, Assessed Assessed Scarring -Moisture (Astrid-wound Skin Appearance) Assessed Assessed Assessed -Color (Astrid-wound Skin Appearance) Assessed Assessed Assessed -Temperature (Astrid-wound Skin No Abnormality No Abnormality Appearance) (Pt Warm) (Pt Warm) -Tenderness on Palpation (Astrid-wound No No Skin Appearance) -Ulcer Cleansing Wound Cleanser Wound Cleanser Rinsed/ Irrigated with Saline -Foul Odor after Cleansing No No No -Anesthetic Used 5% Lidocaine 5% Lidocaine 5% Lidocaine Gel Gel Gel Lower Limb Edema Present Yes Yes Left Calf (cm) 41 40 39 Left Ankle (cm) 24.5 23.2 24 WC - Nurse 2 - General Ulcer CM Notes Start: 10/31/23 09:12 Freq: Status: Active Protocol: Activity Type Activity Date Activity User E-sign Co-sign Detail Recorded Client Recorded Date Recorded By Document 10/31/23 09:23 JF Laptop 10/31/23 09:25 JF Document 11/07/23 09:14 JF Laptop 11/07/23 09:17 JF Document 11/14/23 09:27 JF Laptop 11/14/23 09:29 10/31/23 11/07/23 11/14/23 09:23 09:14 09:27 Wound Center Nurse 2 1. LLE -Time 09:15 09:28 -Correct Patient Yes Yes Yes -Correct Side, Site, Position Yes Yes Yes -Correct Procedure Yes Yes Yes -Procedure Performed Yes Yes Yes -Type of Procedure Debridement Debridement Debridement -Clinical Debridement Subcutaneous Subcutaneous Subcutaneous -Tissue Removed Subcutaneous Subcutaneous Subcutaneous -Post Debridement (cm) - Length 2.8 6.0 5.2 -Post Debridement (cm) - Width 5.5 3.0 2.5 -Post Debridement (cm) - Depth 0.1 0.1 0.1 -Total Square (Post) (cm) 15.40 18.00 13.00 -Area of Debridement (cm) - Length 2.8 6.0 5.2 -Area of Debridement (cm) - Width 5.5 3.0 2.5 -Total Square (Area) (cm) 15.40 18.00 13.00 -Tunneling No No No -Undermining/Tunneling No No No -Circular Undermining No No No -Wound/Ulcer Outcome Not Healed Not Healed Not Healed -Ulcer Cleansing Rinsed/ Rinsed/ Rinsed/ Irrigated with Irrigated with Irrigated with Saline Saline Saline -Foul Odor after Cleansing No No No -Bioengineered Tissue Yes Yes Yes -Type of Bioengineered Tissue Epifix Mesh Epifix Mesh Epifix Mesh -Expiration Date 05/28/28 05/28/28 05/28/28 -Product Lot Number [id number] -Percent Used 100 100 100 -Lot number of Saline Used [id number] -Bleeding Controlled with Pressure Pressure Pressure -Treatment Response Procedure Procedure Procedure Tolerated Well Tolerated Well Tolerated Well -Offloading No No No -Debridement - Subq, 1st 20sq cm No No No -Apply Skin Sub - 1st 25 sq cm - Legs 1 1 1 -Epifix Mesh (per sq cm) 11 11 11 Pain Scale: 0-10 Numeric Is Patient Pain Free? Yes Yes Yes - Nurse 3 - General Ulcer D/C NN Start: 10/31/23 09:12 Freq: Status: Active Protocol: Activity Type Activity Date Activity User E-sign Co-sign Detail Recorded Client Recorded Date Recorded By Document 10/31/23 09:39 RB Desktop 10/31/23 09:40 RB Document 11/07/23 09:24 KW Desktop 11/07/23 09:24 KW Edit Result 11/07/23 09:24 KW (1) Desktop 11/07/23 09:32 RB Document 11/14/23 09:34 JF Laptop 11/14/23 09:35 JF (1) 1. LLE - Other Dressing => hydrogel - Mepilex Border 2 => 1 10/31/23 11/07/23 11/14/23 09:39 09:24 09:34 Wound Care Center Nurse 3 1. LLE -Primary Dressing Applied Mepilex Border Mepilex Border -Other Dressing abd pad hydrogel -Primary Dressing Covered/Secured with Dry Gauze -Mepilex Border 1 1 Left -Multi-Layered Wrap Application Multi-Layer Comp - Left ($) -Tubular Bandage Double Layer Single Layer -Size of Tubigrip Used Size E Size E -Size E ($) 2 1 Treatment Response Procedure Tolerated Well Pain Scale: 0-10 Numeric Is Patient Pain Free? Yes Yes Yes - Visit Discharge Discharge Condition Stable Stable Stable Ambulatory Status Ambulatory Ambulatory Cane Transportation Private Auto Private Auto Medication Reconcilliation completed & No No Yes provided to patient/care provider Clinical Summary of Care Provided Yes Yes Yes Assessment/Plan Assessment/Plan (1) Venous insufficiency (chronic) (peripheral): CODE(S): I87.2 - Venous insufficiency (chronic) (peripheral) PLAN: Exam performed Neurovascular status intact, will consider arterial studies if there are any delays in healing Wound decreased in size. No infection. Today left lower extremity wound was excisionally debrided down to including level of subcutaneous tissue of all nonviable tissue using 3 mm dermal curette. Topical anesthesia was used. Pre and postdebridement measurements documented nursing notes. Patient tolerated procedure well. Topical anesthesia used. Hemostasis obtained with light compression. Wound was flushed with copious amounts normal sterile saline, swab culture taken No additional antibiotics needed at this time Today EpiFix graft was applied 4 x 4.5 cm meshed graft, 11 billing units to its entirety to the left leg wound. Entire graft used, no waste. This was stabilized with overlying Adaptic, 4 x 4's, DSD and 3M compression dressing. Patient will follow-up for nursing dressing change and next week for additional care. Significant wound improvement noted today. Patient to follow-up in 1 week (2) Non-pressure chronic ulcer of left ankle with fat layer exposed: CODE(S): L97.322 - Non-pressure chronic ulcer of left ankle with fat layer exposed
[2023-11-21 08:56] VITALS: BP 110/71; PULSE 70; RESP 20; TEMP 36; BMI 31.7
--- NOTE | 2023-11-21 09:55 | PCM.WC.PN ---
History of Present Illness Date of Service: 11/21/23 History of Wound: 72-year-old male has had a wound since May 2023. Patient was chopping firewood and had a few piece of wood fall onto his left leg. Patient suffered a laceration was seen in the emergency department at that time which they flushed and cleaned the wound and closed it primarily after updating his tetanus status. Patient subsequently had his sutures removed and developed a full-thickness ulceration to his left medial leg. Patient had been performing self-care with daily dressing changes and noticed no healing, therefore, he presents today. Patient has no obvious medical problems and is not currently on any long-term medications. Patient does have bilateral lower extremity swelling. 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 Patient notes some pain to the wound site. Patient has no other complaints. Progress of Wound: Wound improving no issues today. Objective Data Objective Data Vital Signs: Vital Signs Temp Pulse Resp BP O2 Del Method 96.8 F L 70 20 H 110/71 Room Air 11/21/23 08:56 11/21/23 08:56 11/21/23 08:56 11/21/23 08:56 11/14/23 09:20 Oxygen Delivery Method Room Air Weight: 106.141 kg Body Mass Index (BMI) 31.7 Physical Exam Narrative Patient has palpable 2 out of 4 DP PT pulses to right lower extremity. Left lower extremity PT is palpable 2 out of 4. Dorsalis pedis is biphasic On Doppler examination. Patient has +2 pitting edema to bilateral lower extremity perimalleolar region with positive hemosiderin deposits and superficial varicosities. Patient has intact light touch protective sensation as well as deep tendon reflexes Achilles. No obvious clonus. Full-thickness wound noted to the medial left ankle along the course of the great saphenous vein with a stable granular base. Wound decreased in size. No overt signs of infection such as erythema malodor or purulent drainage warmth. There is some pain to the wound and periwound area. Musculoskeletal muscular strength full to bilateral lower extremity compartments. No wounds forming deformities noted. No sign DVT. Const alert and oriented x3 Debridement Note Debridement Note Post-Debridement Measurements and Additional Note: Post-Debridement Measurements/Treatment KIRSTY - Nurse 1 - General Ulcer Assessment Start: 10/31/23 09:12 Freq: Status: Active Protocol: COLTONT Activity Type Activity Date Activity User E-sign Co-sign Detail Recorded Client Recorded Date Recorded By Document 10/31/23 09:13 RB Desktop 10/31/23 09:15 RB Document 11/07/23 09:07 RB Desktop 11/07/23 09:09 RB Document 11/14/23 09:20 JF Laptop 11/14/23 09:22 JF Document 11/21/23 08:56 DL Desktop 11/21/23 09:05 DL 10/31/23 11/07/23 11/14/23 09:13 09:07 09:20 WC - Today's Visit Information Type of service Follow-up Visit Follow-up Visit Follow-up Visit (Physician/HAND EDGE BANDER (Physician/HAND EDGE BANDER (Physician/HAND EDGE BANDER ) ) ) Arrival Mode Ambulatory Ambulatory Ambulatory Transfer Assistance None None Patient Identification Verified (Name & Yes Yes Yes ) Patient Requires Transmission-Based No No Precautions Height and Weight Body Mass Index (BMI) 31.7 31.7 31.7 BMI Classification Obese Obese Obese Vital Signs Temperature (97.8 F-99.1 F) 97.7 F L 96.2 F L 97.4 F L Temperature Source Temporal Temporal Temporal Pulse Rate (60-100) 63 64 73 Pulse Location Monitor Monitor Respiratory Rate (12-18) 18 18 18 Respiratory rate source Observation Observation Oxygen Delivery Method Room Air Blood Pressure (90/60-120/80) 145/77 H 156/72 H 150/90 H Blood Pressure Mean (mm Hg) 99 100 110 Source Monitor Monitor Monitor Position Semi-Fowlers Semi-Fowlers Semi-Fowlers Blood Pressure Location Left Arm Left Arm Left Arm History Since Last Visit- (Skip if this is Patient's initial visit) Have you changed medications since your No No No last visit? Any new allergies or adverse reactions No No No Had a fall/change in ADL's that may No No No increase risk of falls Signs or symptoms of abuse and/or No No No neglect since last visit Have you been in the hospital since your No No No last visit? Has dressing in place as prescribed Yes Yes Yes Has compression in place as prescribed Yes Yes Yes Has offloadiing in place as prescribed No No N/A Experienced any changes in pain level or No No No management Left Footwear Regular Shoe Right Footwear Regular Shoe Pain Scale: 0-10 Numeric Is Patient Pain Free? Yes Yes Yes 11/21/23 08:56 WC - Today's Visit Information Type of service Follow-up Visit (Physician/HAND EDGE BANDER ) Arrival Mode Ambulatory Transfer Assistance None Patient Identification Verified (Name & Yes ) Patient Requires Transmission-Based No Precautions Height and Weight Body Mass Index (BMI) 31.7 BMI Classification Obese Vital Signs Temperature (97.8 F-99.1 F) 96.8 F L Temperature Source Temporal Pulse Rate (60-100) 70 Pulse Location Monitor Respiratory Rate (12-18) 20 H Respiratory rate source Observation Oxygen Delivery Method Blood Pressure (90/60-120/80) 110/71 Blood Pressure Mean (mm Hg) 84 Source Monitor Position Blood Pressure Location History Since Last Visit- (Skip if this is Patient's initial visit) Have you changed medications since your No last visit? Any new allergies or adverse reactions No Had a fall/change in ADL's that may No increase risk of falls Signs or symptoms of abuse and/or No neglect since last visit Have you been in the hospital since your No last visit? Has dressing in place as prescribed Yes Has compression in place as prescribed Yes Has offloadiing in place as prescribed N/A Experienced any changes in pain level or No management Left Footwear Regular Shoe Right Footwear Regular Shoe Pain Scale: 0-10 Numeric Is Patient Pain Free? Yes - Nurse 1 - General Ulcer Measurement Start: 10/31/23 09:12 Freq: Status: Active Protocol: Activity Type Activity Date Activity User E-sign Co-sign Detail Recorded Client Recorded Date Recorded By Document 10/31/23 09:13 RB Desktop 10/31/23 09:15 RB Document 11/07/23 09:07 RB Desktop 11/07/23 09:09 RB Document 11/14/23 09:20 JF Laptop 11/14/23 09:22 JF Document 11/21/23 08:56 DL Desktop 11/21/23 09:05 DL 10/31/23 11/07/23 11/14/23 09:13 09:07 09:20 Wound Center Nurse 1 1. LLE -Combined with other wound No No -Current Size (cm) - Length 5.7 5.5 5 -Current Size (cm) - Width 3.1 3 2.4 -Current Size (cm) - Depth 0.1 0.1 0.1 -Total Square Cm 17.67 16.5 12.0 -Photo Taken Yes -Epithelialization Small 1-33% -Tunneling No No -Undermining/Tunneling No No -Circular Undermining No No -Exudate Amt Large Medium Small -Exudate Type Serosanguineous Serosanguineous Serosanguineous -Wound Margin Distinct, Distinct, Outline Outline Attached Attached -Granulation Amt Medium (34-66%) Medium (34-66%) Large (67-100%) -Granulation Quality [place] Red Red -Slough/Fibrin Yes Yes -Necrosis Amt Medium (34-66%) Small (1-33%) -Necrotic Tissue Type Adherent Slough Adherent Slough -Structure Exposed N/A N/A -Texture (Astrid-wound Skin Appearance) Assessed, Assessed Assessed Scarring -Moisture (Astrid-wound Skin Appearance) Assessed Assessed Assessed -Color (Astrid-wound Skin Appearance) Assessed Assessed Assessed -Temperature (Astrid-wound Skin No Abnormality No Abnormality Appearance) (Pt Warm) (Pt Warm) -Tenderness on Palpation (Astrid-wound No No Skin Appearance) -Ulcer Cleansing Wound Cleanser Wound Cleanser Rinsed/ Irrigated with Saline -Foul Odor after Cleansing No No No -Anesthetic Used 5% Lidocaine 5% Lidocaine 5% Lidocaine Gel Gel Gel Lower Limb Edema Present Yes Yes Left Calf (cm) 41 40 39 Left Ankle (cm) 24.5 23.2 24 11/21/23 08:56 Wound Center Nurse 1 1. LLE -Combined with other wound -Current Size (cm) - Length 4.5 -Current Size (cm) - Width 2.8 -Current Size (cm) - Depth 0.1 -Total Square Cm 12.60 -Photo Taken -Epithelialization -Tunneling -Undermining/Tunneling -Circular Undermining -Exudate Amt Medium -Exudate Type Serosanguineous -Wound Margin Distinct, Outline Attached -Granulation Amt Medium (34-66%) -Granulation Quality Red -Slough/Fibrin -Necrosis Amt Large (67-100%) -Necrotic Tissue Type Adherent Slough -Structure Exposed N/A -Texture (Astrid-wound Skin Appearance) Scarring -Moisture (Astrid-wound Skin Appearance) No Abnormality -Color (Astrid-wound Skin Appearance) No Abnormality -Temperature (Astrid-wound Skin No Abnormality Appearance) (Pt Warm) -Tenderness on Palpation (Astrid-wound Skin Appearance) -Ulcer Cleansing Soap and Water -Foul Odor after Cleansing No -Anesthetic Used 5% Lidocaine Gel Lower Limb Edema Present Left Calf (cm) 39.4 Left Ankle (cm) 22.5 WC - Nurse 2 - General Ulcer CM Notes Start: 10/31/23 09:12 Freq: Status: Active Protocol: Activity Type Activity Date Activity User E-sign Co-sign Detail Recorded Client Recorded Date Recorded By Document 10/31/23 09:23 [employer] Laptop 10/31/23 09:25 Document 11/07/23 09:14 JF Laptop 11/07/23 09:17 JF Document 11/14/23 09:27 JF Laptop 11/14/23 09:29 JF Document 11/21/23 09:11 MW Desktop 11/21/23 09:19 MW 10/31/23 11/07/23 11/14/23 09:23 09:14 09:27 Wound Center Nurse 2 1. LLE -Time 09:15 09:28 -Correct Patient Yes Yes Yes -Correct Side, Site, Position Yes Yes Yes -Correct Procedure Yes Yes Yes -Procedure Performed Yes Yes Yes -Type of Procedure Debridement Debridement Debridement -Clinical Debridement Subcutaneous Subcutaneous Subcutaneous -Tissue Removed Subcutaneous Subcutaneous Subcutaneous -Post Debridement (cm) - Length 2.8 6.0 5.2 -Post Debridement (cm) - Width 5.5 3.0 2.5 -Post Debridement (cm) - Depth 0.1 0.1 0.1 -Total Square (Post) (cm) 15.40 18.00 13.00 -Area of Debridement (cm) - Length 2.8 6.0 5.2 -Area of Debridement (cm) - Width 5.5 3.0 2.5 -Total Square (Area) (cm) 15.40 18.00 13.00 -Tunneling No No No -Undermining/Tunneling No No No -Circular Undermining No No No -Wound/Ulcer Outcome Not Healed Not Healed Not Healed -Ulcer Cleansing Rinsed/ Rinsed/ Rinsed/ Irrigated with Irrigated with Irrigated with Saline Saline Saline -Foul Odor after Cleansing No No No -Bioengineered Tissue Yes Yes Yes -Type of Bioengineered Tissue Epifix Mesh Epifix Mesh Epifix Mesh -Expiration Date 05/28/28 05/28/28 05/28/28 -Product Lot Number [id number] -Percent Used 100 100 100 -Lot number of Saline Used [id number] -Bleeding Controlled with Pressure Pressure Pressure -Treatment Response Procedure Procedure Procedure Tolerated Well Tolerated Well Tolerated Well -Offloading No No No -Debridement - Subq, 1st 20sq cm No No No -Apply Skin Sub - 1st 25 sq cm - Legs 1 1 1 -Epifix Mesh (per sq cm) 11 11 11 Pain Scale: 0-10 Numeric Is Patient Pain Free? Yes Yes Yes 11/21/23 09:11 Wound Center Nurse 2 1. LLE -Time 09:12 -Correct Patient Yes -Correct Side, Site, Position Yes -Correct Procedure Yes -Procedure Performed Yes -Type of Procedure Debridement -Clinical Debridement Subcutaneous -Tissue Removed Subcutaneous -Post Debridement (cm) - Length 4.9 -Post Debridement (cm) - Width 2.5 -Post Debridement (cm) - Depth 0.1 -Total Square (Post) (cm) 12.25 -Area of Debridement (cm) - Length 4.9 -Area of Debridement (cm) - Width 2.5 -Total Square (Area) (cm) 12.25 -Tunneling No -Undermining/Tunneling No -Circular Undermining No -Wound/Ulcer Outcome Not Healed -Ulcer Cleansing Wound Cleanser -Foul Odor after Cleansing No -Bioengineered Tissue Yes -Type of Bioengineered Tissue Epifix Mesh -Expiration Date 04/28/28 -Product Lot Number [id number] -Percent Used 100 -Lot number of Saline Used [id number] -Bleeding Controlled with Pressure -Treatment Response Procedure Tolerated Well -Offloading No -Debridement - Subq, 1st 20sq cm No -Apply Skin Sub - 1st 25 sq cm - Legs 1 -Epifix Mesh (per sq cm) 11 Pain Scale: 0-10 Numeric Is Patient Pain Free? Yes - Nurse 3 - General Ulcer D/C NN Start: 10/31/23 09:12 Freq: Status: Active Protocol: Activity Type Activity Date Activity User E-sign Co-sign Detail Recorded Client Recorded Date Recorded By Document 10/31/23 09:39 RB Desktop 10/31/23 09:40 RB Document 11/07/23 09:24 KW Desktop 11/07/23 09:24 KW Edit Result 11/07/23 09:24 KW (1) Desktop 11/07/23 09:32 RB Document 11/14/23 09:34 JF Laptop 11/14/23 09:35 JF Document 11/21/23 09:33 DL Desktop 11/21/23 09:34 DL (1) 1. LLE - Other Dressing => hydrogel - Mepilex Border 2 => 1 10/31/23 11/07/23 11/14/23 09:39 09:24 09:34 Wound Care Center Nurse 3 1. LLE -Foul Odor after Cleansing -Primary Dressing Applied Mepilex Border Mepilex Border -Other Dressing abd pad hydrogel -Primary Dressing Covered/Secured with Dry Gauze -Mepilex Border 1 1 Left -Multi-Layered Wrap Application Multi-Layer Comp - Left ($) -Tubular Bandage Double Layer Single Layer -Size of Tubigrip Used Size E Size E -Size E ($) 2 1 -Other Treatment Response Procedure Tolerated Well Pain Scale: 0-10 Numeric Is Patient Pain Free? Yes Yes Yes WC - Visit Discharge Discharge Condition Stable Stable Stable Ambulatory Status Ambulatory Ambulatory Cane Transportation Private Auto Private Auto Medication Reconcilliation completed & No No Yes provided to patient/care provider Clinical Summary of Care Provided Yes Yes Yes 11/21/23 09:33 Wound Care Center Nurse 3 1. LLE -Foul Odor after Cleansing No -Primary Dressing Applied Mepilex Border -Other Dressing Epimesh -Primary Dressing Covered/Secured with -Mepilex Border 2 Left -Multi-Layered Wrap Application -Tubular Bandage -Size of Tubigrip Used -Size E ($) -Other tubigrip Treatment Response Procedure Tolerated Well Pain Scale: 0-10 Numeric Is Patient Pain Free? Yes WC - Visit Discharge Discharge Condition Stable Ambulatory Status Ambulatory Transportation Private Auto Medication Reconcilliation completed & provided to patient/care provider Clinical Summary of Care Provided Assessment/Plan Assessment/Plan (1) Venous insufficiency (chronic) (peripheral): CODE(S): I87.2 - Venous insufficiency (chronic) (peripheral) PLAN: Exam performed Neurovascular status intact, will consider arterial studies if there are any delays in healing Wound decreased in size. No infection. Today left lower extremity wound was excisionally debrided down to including level of subcutaneous tissue of all nonviable tissue using 3 mm dermal curette. Topical anesthesia was used. Pre and postdebridement measurements documented nursing notes. Patient tolerated procedure well. Topical anesthesia used. Hemostasis obtained with light compression. Wound was flushed with copious amounts normal sterile saline, swab culture taken No additional antibiotics needed at this time Today EpiFix graft was applied 4 x 4.5 cm meshed graft, 11 billing units to its entirety to the left leg wound. Entire graft used, no waste. This was stabilized with overlying Adaptic, 4 x 4's, DSD and 3M compression dressing. Patient will follow-up for nursing dressing change and next week for additional care. Significant wound improvement noted today. Patient to follow-up in 1 week Today prescription for Medrol Dosepak was given 11/21/2023. (2) Non-pressure chronic ulcer of left ankle with fat layer exposed: CODE(S): L97.322 - Non-pressure chronic ulcer of left ankle with fat layer exposed
== END 2023-11-26 23:59 | disposition home or self-care (01) ==
LOC: WC 09:00
PROVIDERS: PCP Family Medicine; Referring Provider Family Medicine; Visit Provider Podiatrist
DX: L97.322 Non-pressure chronic ulcer of left ankle with fat layer exposed (principal); S81.812S Laceration without foreign body, left lower leg, sequela; W20.8XXS Other cause of strike by thrown, projected or falling object, sequela; I87.2 Venous insufficiency (chronic) (peripheral)
CPT/HCPCS: 15271; 29581; Q4186

== ENCOUNTER 2023-12-26 09:15 | Outpatient (RCR) | payer MEDICARE, OTHER, SELFPAY ==
[2023-11-27 00:35] VITALS: BP 110/71; PULSE 70; RESP 20; TEMP 36; BMI 31.7
[2023-11-28 09:28] VITALS: BP 154/67; PULSE 67; RESP 18; TEMP 36.2; BMI 31.7
--- NOTE | 2023-11-28 10:01 | PN.PCM_ITS ---
History of Present Illness Date of Service: 11/28/23 History of Wound: 72-year-old male has had a wound since May 2023. Patient was chopping firewood and had a few piece of wood fall onto his left leg. Patient suffered a laceration was seen in the emergency department at that time which they flushed and cleaned the wound and closed it primarily after updating his tetanus status. Patient subsequently had his sutures removed and developed a full-thickness ulceration to his left medial leg. Patient had been performing self-care with daily dressing changes and noticed no healing, therefore, he presents today. Patient has no obvious medical problems and is not currently on any long-term medications. Patient does have bilateral lower extremity swelling. 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 Patient notes some pain to the wound site. Patient has no other complaints. Objective Data Objective Data Vital Signs: Vital Signs Temp Pulse Resp BP 97.1 F L 67 18 154/67 H 11/28/23 09:28 11/28/23 09:28 11/28/23 09:28 11/28/23 09:28 Weight: 106.141 kg Body Mass Index (BMI) 31.7 Physical Exam Narrative Patient has palpable 2 out of 4 DP PT pulses to right lower extremity. Left lower extremity PT is palpable 2 out of 4. Dorsalis pedis is biphasic On Doppler examination. Patient has +2 pitting edema to bilateral lower extremity perimalleolar region with positive hemosiderin deposits and superficial varicosities. Patient has intact light touch protective sensation as well as deep tendon reflexes Achilles. No obvious clonus. Full-thickness wound noted to the medial left ankle along the course of the great saphenous vein with a stable granular base. Wound decreased in size. No overt signs of infection such as erythema malodor or purulent drainage warmth. There is some pain to the wound and periwound area. Musculoskeletal muscular strength full to bilateral lower extremity compartments. No wounds forming deformities noted. No sign DVT. Const alert and oriented x3 Debridement Note Debridement Note Post-Debridement Measurements and Additional Note: Post-Debridement Measurements/Treatment KIRSTY - Nurse 1 - General Ulcer Assessment Start: 11/28/23 09:28 Freq: Status: Active Protocol: COLTONT Activity Type Activity Date Activity User E-sign Co-sign Detail Recorded Client Recorded Date Recorded By Document 11/28/23 09:28 Desktop 11/28/23 09:30 RB 11/28/23 09:28 WC - Today's Visit Information Type of service Follow-up Visit (Physician/[employer]PERVISOR ) Arrival Mode Ambulatory Transfer Assistance None Patient Identification Verified (Name & Yes ) Patient Requires Transmission-Based No Precautions Height and Weight Body Mass Index (BMI) 31.7 BMI Classification Obese Vital Signs Temperature (97.8 F-99.1 F) 97.1 F L Temperature Source Temporal Pulse Rate (60-100) 67 Pulse Location Monitor Respiratory Rate (12-18) 18 Respiratory rate source Observation Blood Pressure (90/60-120/80) 154/67 H Blood Pressure Mean (mm Hg) 96 Source Monitor Position Semi-Fowlers Blood Pressure Location Left Arm History Since Last Visit- (Skip if this is Patient's initial visit) Have you changed medications since your No last visit? Any new allergies or adverse reactions No Had a fall/change in ADL's that may No increase risk of falls Signs or symptoms of abuse and/or No neglect since last visit Have you been in the hospital since your No last visit? Has dressing in place as prescribed Yes Has compression in place as prescribed Yes Has offloadiing in place as prescribed No Experienced any changes in pain level or No management Pain Scale: 0-10 Numeric Is Patient Pain Free? Yes - Nurse 1 - General Ulcer Measurement Start: 11/28/23 09:28 Freq: Status: Active Protocol: Activity Type Activity Date Activity User E-sign Co-sign Detail Recorded Client Recorded Date Recorded By Document 11/28/23 09:28 Desktop 11/28/23 09:30 RB 11/28/23 09:28 Wound Center Nurse 1 1. LLE -Combined with other wound No -Current Size (cm) - Length 4 -Current Size (cm) - Width 2.2 -Current Size (cm) - Depth 0.1 -Total Square Cm 8.8 -Tunneling No -Undermining/Tunneling No -Circular Undermining No -Exudate Amt Large -Exudate Type Serosanguineous -Wound Margin Distinct, Outline Attached -Granulation Amt Medium (34-66%) -Granulation Quality [place] -Slough/Fibrin Yes -Necrosis Amt Medium (34-66%) -Necrotic Tissue Type Adherent Slough -Structure Exposed N/A -Texture (Astrid-wound Skin Appearance) Assessed -Moisture (Astrid-wound Skin Appearance) Assessed -Color (Astrid-wound Skin Appearance) Hemosiderin Staining -Temperature (Astrid-wound Skin No Abnormality Appearance) (Pt Warm) -Tenderness on Palpation (Astrid-wound No Skin Appearance) -Ulcer Cleansing Wound Cleanser -Foul Odor after Cleansing No -Anesthetic Used 5% Lidocaine Gel Lower Limb Edema Present Yes Left Calf (cm) 41 Left Ankle (cm) 23.7 WC - Nurse 2 - General Ulcer CM Notes Start: 11/28/23 09:28 Freq: Status: Active Protocol: Activity Type Activity Date Activity User E-sign Co-sign Detail Recorded Client Recorded Date Recorded By Document 11/28/23 09:37 Laptop 11/28/23 09:44 11/28/23 09:37 Wound Center Nurse 2 1. LLE -Time 09:37 -Correct Patient Yes -Correct Side, Site, Position Yes -Correct Procedure Yes -Procedure Performed Yes -Type of Procedure Debridement -Clinical Debridement Subcutaneous -Tissue Removed Subcutaneous -Post Debridement (cm) - Length 4.8 -Post Debridement (cm) - Width 2.3 -Post Debridement (cm) - Depth 0.1 -Total Square (Post) (cm) 11.04 -Area of Debridement (cm) - Length 4.8 -Area of Debridement (cm) - Width 2.3 -Total Square (Area) (cm) 11.04 -Tunneling No -Undermining/Tunneling No -Circular Undermining No -Wound/Ulcer Outcome Not Healed -Ulcer Cleansing Rinsed/ Irrigated with Saline -Foul Odor after Cleansing No -Bioengineered Tissue Yes -Type of Bioengineered Tissue Epifix Mesh -Expiration Date 04/28/28 -Product Lot Number [id number] -Percent Used 100 -Lot number of Saline Used [id number] -Bleeding Controlled with Pressure -Treatment Response Procedure Tolerated Well -Offloading No -Debridement - Subq, 1st 20sq cm No -Apply Skin Sub - 1st 25 sq cm - Legs 1 -Epifix Mesh (per sq cm) 11 Pain Scale: 0-10 Numeric Is Patient Pain Free? Yes KIRSTY - Nurse 3 - General Ulcer D/C NN Start: 11/28/23 09:28 Freq: Status: Active Protocol: Activity Type Activity Date Activity User E-sign Co-sign Detail Recorded Client Recorded Date Recorded By Document 11/28/23 09:56 KW Desktop 11/28/23 09:56 KW 11/28/23 09:56 Wound Care Center Nurse 3 1. LLE -Primary Dressing Applied Mepilex Border -Mepilex Border 1 Left -Tubular Bandage Double Layer -Size of Tubigrip Used Size E -Size E ($) 2 Pain Scale: 0-10 Numeric Is Patient Pain Free? Yes WC - Visit Discharge Discharge Condition Stable Ambulatory Status Ambulatory Transportation Private Auto Medication Reconcilliation completed & No provided to patient/care provider Clinical Summary of Care Provided Yes Assessment/Plan Assessment/Plan (1) Venous insufficiency (chronic) (peripheral): CODE(S): I87.2 - Venous insufficiency (chronic) (peripheral) PLAN: Exam performed Neurovascular status intact, will consider arterial studies if there are any delays in healing Wound decreased in size. No infection. Today left lower extremity wound was excisionally debrided down to including level of subcutaneous tissue of all nonviable tissue using 3 mm dermal curette. Topical anesthesia was used. Pre and postdebridement measurements documented nursing notes. Patient tolerated procedure well. Topical anesthesia used. Hemostasis obtained with light compression. Wound was flushed with copious amounts normal sterile saline, swab culture taken No additional antibiotics needed at this time Today EpiFix graft was applied 4 x 4.5 cm meshed graft, 11 billing units to its entirety to the left leg wound. Entire graft used, no waste. This was stabilized with overlying Adaptic, 4 x 4's, DSD and 3M compression dressing. Patient will follow-up for nursing dressing change and next week for additional care. Significant wound improvement noted today. Patient to follow-up in 1 week (2) Non-pressure chronic ulcer of left ankle with fat layer exposed: CODE(S): L97.322 - Non-pressure chronic ulcer of left ankle with fat layer exposed
[2023-12-05 08:57] VITALS: BP 169/78; PULSE 72; RESP 20; TEMP 36.6; BMI 31.7
--- NOTE | 2023-12-05 10:34 | PN.PCM_ITS ---
History of Present Illness Date of Service: 12/05/23 History of Wound: 72-year-old male has had a wound since May 2023. Patient was chopping firewood and had a few piece of wood fall onto his left leg. Patient suffered a laceration was seen in the emergency department at that time which they flushed and cleaned the wound and closed it primarily after updating his tetanus status. Patient subsequently had his sutures removed and developed a full-thickness ulceration to his left medial leg. Patient had been performing self-care with daily dressing changes and noticed no healing, therefore, he presents today. Patient has no obvious medical problems and is not currently on any long-term medications. Patient does have bilateral lower extremity swelling. 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 Patient notes some pain to the wound site. Patient has no other complaints. Objective Data Objective Data Vital Signs: Vital Signs Temp Pulse Resp BP 97.9 F 72 20 H 169/78 H 12/05/23 08:57 12/05/23 08:57 12/05/23 08:57 12/05/23 08:57 Weight: 106.141 kg Body Mass Index (BMI) 31.7 Physical Exam Narrative Patient has palpable 2 out of 4 DP PT pulses to right lower extremity. Left lower extremity PT is palpable 2 out of 4. Dorsalis pedis is biphasic On Doppler examination. Patient has +2 pitting edema to bilateral lower extremity perimalleolar region with positive hemosiderin deposits and superficial varicosities. Patient has intact light touch protective sensation as well as deep tendon reflexes Achilles. No obvious clonus. Full-thickness wound noted to the medial left ankle along the course of the great saphenous vein with a stable granular base. Wound decreased in size. No overt signs of infection such as erythema malodor or purulent drainage warmth. There is some pain to the wound and periwound area. Musculoskeletal muscular strength full to bilateral lower extremity compartments. No wounds forming deformities noted. No sign DVT. Const alert and oriented x3 Debridement Note Debridement Note Post-Debridement Measurements and Additional Note: Post-Debridement Measurements/Treatment KIRSTY - Nurse 1 - General Ulcer Assessment Start: 11/28/23 09:28 Freq: Status: Active Protocol: COLTONT Activity Type Activity Date Activity User E-sign Co-sign Detail Recorded Client Recorded Date Recorded By Document 11/28/23 09:28 RB Desktop 11/28/23 09:30 RB Document 12/05/23 08:57 DL Desktop 12/05/23 09:06 DL 11/28/23 12/05/23 09:28 08:57 - Today's Visit Information Type of service Follow-up Visit Follow-up Visit (Physician/[employer] (Physician/[employer] ) ) Arrival Mode Ambulatory Ambulatory Transfer Assistance None None Patient Identification Verified (Name & Yes Yes ) Patient Requires Transmission-Based No No Precautions Height and Weight Body Mass Index (BMI) 31.7 31.7 BMI Classification Obese Obese Vital Signs Temperature (97.8 F-99.1 F) 97.1 F L 97.9 F Temperature Source Temporal Temporal Pulse Rate (60-100) 67 72 Pulse Location Monitor Monitor Respiratory Rate (12-18) 18 20 H Respiratory rate source Observation Observation Blood Pressure (90/60-120/80) 154/67 H 169/78 H Blood Pressure Mean (mm Hg) 96 108 Source Monitor Monitor Position Semi-Fowlers Blood Pressure Location Left Arm History Since Last Visit- (Skip if this is Patient's initial visit) Have you changed medications since your No No last visit? Any new allergies or adverse reactions No No Had a fall/change in ADL's that may No No increase risk of falls Signs or symptoms of abuse and/or No No neglect since last visit Have you been in the hospital since your No No last visit? Has dressing in place as prescribed Yes Yes Has compression in place as prescribed Yes Yes Has offloadiing in place as prescribed No N/A Experienced any changes in pain level or No No management Pain Scale: 0-10 Numeric Is Patient Pain Free? Yes Yes - Nurse 1 - General Ulcer Measurement Start: 11/28/23 09:28 Freq: Status: Active Protocol: Activity Type Activity Date Activity User E-sign Co-sign Detail Recorded Client Recorded Date Recorded By Document 11/28/23 09:28 RB Desktop 11/28/23 09:30 RB Document 12/05/23 08:57 DL Desktop 12/05/23 09:06 DL 11/28/23 12/05/23 09:28 08:57 Wound Center Nurse 1 1. LLE -Combined with other wound No -Current Size (cm) - Length 4 4 -Current Size (cm) - Width 2.2 2 -Current Size (cm) - Depth 0.1 0.1 -Total Square Cm 8.8 8 -Photo Taken Yes -Tunneling No -Undermining/Tunneling No -Circular Undermining No -Exudate Amt Large Medium -Exudate Type Serosanguineous Serosanguineous -Wound Margin Distinct, Distinct, Outline Outline Attached Attached -Granulation Amt Medium (34-66%) Medium (34-66%) -Granulation Quality [place] Red -Slough/Fibrin Yes -Necrosis Amt Medium (34-66%) Medium (34-66%) -Necrotic Tissue Type Adherent Slough Adherent Slough -Structure Exposed N/A N/A -Texture (Astrid-wound Skin Appearance) Assessed Scarring -Moisture (Astrid-wound Skin Appearance) Assessed No Abnormality -Color (Astrid-wound Skin Appearance) Hemosiderin No Abnormality Staining -Temperature (Astrid-wound Skin No Abnormality No Abnormality Appearance) (Pt Warm) (Pt Warm) -Tenderness on Palpation (Astrid-wound No Skin Appearance) -Ulcer Cleansing Wound Cleanser Soap and Water -Foul Odor after Cleansing No No -Anesthetic Used 5% Lidocaine 5% Lidocaine Gel Gel Lower Limb Edema Present Yes Left Calf (cm) 41 39.5 Left Ankle (cm) 23.7 23.2 WC - Nurse 2 - General Ulcer CM Notes Start: 11/28/23 09:28 Freq: Status: Active Protocol: Activity Type Activity Date Activity User E-sign Co-sign Detail Recorded Client Recorded Date Recorded By Document 11/28/23 09:37 Laptop 11/28/23 09:44 Document 12/05/23 09:54 Laptop 12/05/23 10:01 11/28/23 12/05/23 09:37 09:54 Wound Center Nurse 2 1. LLE -Time 09:37 09:54 -Correct Patient Yes Yes -Correct Side, Site, Position Yes Yes -Correct Procedure Yes Yes -Procedure Performed Yes Yes -Type of Procedure Debridement Debridement -Clinical Debridement Subcutaneous Subcutaneous -Tissue Removed Subcutaneous Subcutaneous -Post Debridement (cm) - Length 4.8 4.2 -Post Debridement (cm) - Width 2.3 2.3 -Post Debridement (cm) - Depth 0.1 0.1 -Total Square (Post) (cm) 11.04 9.66 -Area of Debridement (cm) - Length 4.8 4.2 -Area of Debridement (cm) - Width 2.3 2.3 -Total Square (Area) (cm) 11.04 9.66 -Tunneling No No -Undermining/Tunneling No No -Circular Undermining No No -Wound/Ulcer Outcome Not Healed Not Healed -Ulcer Cleansing Rinsed/ Rinsed/ Irrigated with Irrigated with Saline Saline -Foul Odor after Cleansing No No -Bioengineered Tissue Yes Yes -Type of Bioengineered Tissue Epifix Mesh Epifix Mesh -Expiration Date 04/28/28 05/28/28 -Product Lot Number [id number] -Percent Used 100 100 -Lot number of Saline Used [id number] -Bleeding Controlled with Pressure Pressure -Treatment Response Procedure Procedure Tolerated Well Tolerated Well -Offloading No No -Debridement - Subq, 1st 20sq cm No No -Apply Skin Sub - 1st 25 sq cm - Legs 1 1 -Epifix Mesh (per sq cm) 11 11 Pain Scale: 0-10 Numeric Is Patient Pain Free? Yes Yes - Nurse 3 - General Ulcer D/C NN Start: 11/28/23 09:28 Freq: Status: Active Protocol: Activity Type Activity Date Activity User E-sign Co-sign Detail Recorded Client Recorded Date Recorded By Document 11/28/23 09:56 KW Desktop 11/28/23 09:56 KW Document 12/05/23 10:13 DL Desktop 12/05/23 10:14 DL 11/28/23 12/05/23 09:56 10:13 Wound Care Center Nurse 3 1. LLE -Foul Odor after Cleansing No -Primary Dressing Applied Mepilex Border Mepilex Border -Other Dressing epifix/hydrogel -Primary Dressing Covered/Secured with Dry Gauze -Mepilex Border 1 1 Left -Tubular Bandage Double Layer Double Layer -Size of Tubigrip Used Size E Size E -Size E ($) 2 1 Treatment Response Procedure Tolerated Well Pain Scale: 0-10 Numeric Is Patient Pain Free? Yes Yes - Visit Discharge Discharge Condition Stable Stable Ambulatory Status Ambulatory Ambulatory Transportation Private Auto Private Auto Medication Reconcilliation completed & No provided to patient/care provider Clinical Summary of Care Provided Yes Assessment/Plan Assessment/Plan (1) Venous insufficiency (chronic) (peripheral): CODE(S): I87.2 - Venous insufficiency (chronic) (peripheral) PLAN: Exam performed Neurovascular status intact, will consider arterial studies if there are any delays in healing Wound decreased in size. No infection. Today left lower extremity wound was excisionally debrided down to including level of subcutaneous tissue of all nonviable tissue using 3 mm dermal curette. Topical anesthesia was used. Pre and postdebridement measurements documented nursing notes. Patient tolerated procedure well. Topical anesthesia used. Hemostasis obtained with light compression. Wound was flushed with copious amounts normal sterile saline, swab culture taken No additional antibiotics needed at this time Today EpiFix graft was applied 4 x 4.5 cm meshed graft, 11 billing units to its entirety to the left leg wound. Entire graft used, no waste. This was stabilized with overlying Adaptic, 4 x 4's, DSD and 3M compression dressing. Patient will follow-up for nursing dressing change and next week for additional care. Significant wound improvement noted today. Patient to follow-up in 1 week (2) Non-pressure chronic ulcer of left ankle with fat layer exposed: CODE(S): L97.322 - Non-pressure chronic ulcer of left ankle with fat layer exposed
--- NOTE | 2023-12-08 12:20 | WC ---
4.9.24 LT LEG ULCER
[2023-12-12 09:11] VITALS: RESP 20; TEMP 36.5; BMI 31.7
--- NOTE | 2023-12-12 09:34 | PCM.WC.PN ---
History of Present Illness Date of Service: 12/12/23 History of Wound: 72-year-old male has had a wound since May 2023. Patient was chopping firewood and had a few piece of wood fall onto his left leg. Patient suffered a laceration was seen in the emergency department at that time which they flushed and cleaned the wound and closed it primarily after updating his tetanus status. Patient subsequently had his sutures removed and developed a full-thickness ulceration to his left medial leg. Patient had been performing self-care with daily dressing changes and noticed no healing, therefore, he presents today. Patient has no obvious medical problems and is not currently on any long-term medications. Patient does have bilateral lower extremity swelling. 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 Patient notes some pain to the wound site. Patient has no other complaints. Objective Data Objective Data Vital Signs: Vital Signs Temp Pulse Resp BP 97.7 F L 72 20 H 169/78 H 12/12/23 09:11 12/05/23 08:57 12/12/23 09:11 12/05/23 08:57 Weight: 106.141 kg Body Mass Index (BMI) 31.7 Physical Exam Narrative Patient has palpable 2 out of 4 DP PT pulses to right lower extremity. Left lower extremity PT is palpable 2 out of 4. Dorsalis pedis is biphasic On Doppler examination. Patient has +2 pitting edema to bilateral lower extremity perimalleolar region with positive hemosiderin deposits and superficial varicosities. Patient has intact light touch protective sensation as well as deep tendon reflexes Achilles. No obvious clonus. Full-thickness wound noted to the medial left ankle along the course of the great saphenous vein with a stable granular base. Wound decreased in size. No overt signs of infection such as erythema malodor or purulent drainage warmth. There is some pain to the wound and periwound area. Musculoskeletal muscular strength full to bilateral lower extremity compartments. No wounds forming deformities noted. No sign DVT. Const alert and oriented x3 Debridement Note Debridement Note Post-Debridement Measurements and Additional Note: Post-Debridement Measurements/Treatment KIRSTY - Nurse 1 - General Ulcer Assessment Start: 11/28/23 09:28 Freq: Status: Active Protocol: COLTONT Activity Type Activity Date Activity User E-sign Co-sign Detail Recorded Client Recorded Date Recorded By Document 11/28/23 09:28 RB Desktop 11/28/23 09:30 RB Document 12/05/23 08:57 DL Desktop 12/05/23 09:06 DL Document 12/12/23 09:11 KW Desktop 12/12/23 09:13 KW 11/28/23 12/05/23 12/12/23 09:28 08:57 09:11 WC - Today's Visit Information Type of service Follow-up Visit Follow-up Visit Follow-up Visit (Physician/PRE [employer]ER (Physician/PRE [employer] TEACHER (Physician/PRE [employer]ER[employer] TEACHER ) ) ) Arrival Mode Ambulatory Ambulatory Ambulatory Transfer Assistance None None None Patient Identification Verified (Name & Yes Yes Yes ) Patient Requires Transmission-Based No No No Precautions Height and Weight Body Mass Index (BMI) 31.7 31.7 31.7 BMI Classification Obese Obese Obese Vital Signs Temperature (97.8 F-99.1 F) 97.1 F L 97.9 F 97.7 F L Temperature Source Temporal Temporal Temporal Pulse Rate (60-100) 67 72 Pulse Location Monitor Monitor Respiratory Rate (12-18) 18 20 H 20 H Respiratory rate source Observation Observation Blood Pressure (90/60-120/80) 154/67 H 169/78 H Blood Pressure Mean (mm Hg) 96 108 Source Monitor Monitor Position Semi-Fowlers Blood Pressure Location Left Arm History Since Last Visit- (Skip if this is Patient's initial visit) Have you changed medications since your No No No last visit? Any new allergies or adverse reactions No No No Had a fall/change in ADL's that may No No No increase risk of falls Signs or symptoms of abuse and/or No No No neglect since last visit Have you been in the hospital since your No No No last visit? Has dressing in place as prescribed Yes Yes No Has compression in place as prescribed Yes Yes Yes Has offloadiing in place as prescribed No N/A N/A Experienced any changes in pain level or No No No management Pain Scale: 0-10 Numeric Is Patient Pain Free? Yes Yes Yes - Nurse 1 - General Ulcer Measurement Start: 11/28/23 09:28 Freq: Status: Active Protocol: Activity Type Activity Date Activity User E-sign Co-sign Detail Recorded Client Recorded Date Recorded By Document 11/28/23 09:28 RB Desktop 11/28/23 09:30 RB Document 12/05/23 08:57 DL Desktop 12/05/23 09:06 DL Document 12/12/23 09:11 KW Desktop 12/12/23 09:13 KW 11/28/23 12/05/23 12/12/23 09:28 08:57 09:11 Wound Center Nurse 1 1. LLE -Combined with other wound No -Current Size (cm) - Length 4 4 3.9 -Current Size (cm) - Width 2.2 2 2.4 -Current Size (cm) - Depth 0.1 0.1 0.1 -Total Square Cm 8.8 8 9.36 -Photo Taken Yes Yes -Tunneling No -Undermining/Tunneling No -Circular Undermining No -Exudate Amt Large Medium Medium -Exudate Type Serosanguineous Serosanguineous Serosanguineous -Wound Margin Distinct, Distinct, Distinct, Outline Outline Outline Attached Attached Attached -Granulation Amt Medium (34-66%) Medium (34-66%) Medium (34-66%) -Granulation Quality [place] Red -Slough/Fibrin Yes -Necrosis Amt Medium (34-66%) Medium (34-66%) Medium (34-66%) -Necrotic Tissue Type Adherent Slough Adherent Slough Adherent Slough -Structure Exposed N/A N/A N/A -Texture (Astrid-wound Skin Appearance) Assessed Scarring Scarring -Moisture (Astrid-wound Skin Appearance) Assessed No Abnormality No Abnormality -Color (Astrid-wound Skin Appearance) Hemosiderin No Abnormality No Abnormality Staining -Temperature (Astrid-wound Skin No Abnormality No Abnormality No Abnormality Appearance) (Pt Warm) (Pt Warm) (Pt Warm) -Tenderness on Palpation (Astrid-wound No No Skin Appearance) -Ulcer Cleansing Wound Cleanser Soap and Water Soap and Water -Foul Odor after Cleansing No No No -Anesthetic Used 5% Lidocaine 5% Lidocaine 5% Lidocaine Gel Gel Gel Lower Limb Edema Present Yes Left Calf (cm) 41 39.5 40.2 Left Ankle (cm) 23.7 23.2 22.5 WC - Nurse 2 - General Ulcer CM Notes Start: 11/28/23 09:28 Freq: Status: Active Protocol: Activity Type Activity Date Activity User E-sign Co-sign Detail Recorded Client Recorded Date Recorded By Document 11/28/23 09:37 Laptop 11/28/23 09:44 Document 12/05/23 09:54 Laptop 12/05/23 10:01 Document 12/12/23 09:21 Laptop 12/12/23 09:29 11/28/23 12/05/23 12/12/23 09:37 09:54 09:21 Wound Center Nurse 2 1. LLE -Time 09:37 09:54 -Correct Patient Yes Yes Yes -Correct Side, Site, Position Yes Yes Yes -Correct Procedure Yes Yes Yes -Procedure Performed Yes Yes Yes -Type of Procedure Debridement Debridement Debridement -Clinical Debridement Subcutaneous Subcutaneous Subcutaneous -Tissue Removed Subcutaneous Subcutaneous Subcutaneous -Post Debridement (cm) - Length 4.8 4.2 4.0 -Post Debridement (cm) - Width 2.3 2.3 2.5 -Post Debridement (cm) - Depth 0.1 0.1 0.1 -Total Square (Post) (cm) 11.04 9.66 10.00 -Area of Debridement (cm) - Length 4.8 4.2 4.0 -Area of Debridement (cm) - Width 2.3 2.3 2.5 -Total Square (Area) (cm) 11.04 9.66 10.00 -Tunneling No No No -Undermining/Tunneling No No No -Circular Undermining No No No -Wound/Ulcer Outcome Not Healed Not Healed Not Healed -Ulcer Cleansing Rinsed/ Rinsed/ Rinsed/ Irrigated with Irrigated with Irrigated with Saline Saline Saline -Foul Odor after Cleansing No No No -Bioengineered Tissue Yes Yes Yes -Type of Bioengineered Tissue Epifix Mesh Epifix Mesh Epifix Mesh -Expiration Date 04/28/28 05/28/28 06/28/28 -Product Lot Number [id number] -Percent Used 100 100 100 -Lot number of Saline Used [id number] -Bleeding Controlled with Pressure Pressure Pressure -Treatment Response Procedure Procedure Procedure Tolerated Well Tolerated Well Tolerated Well -Offloading No No No -Debridement - Subq, 1st 20sq cm No No No -Apply Skin Sub - 1st 25 sq cm - Legs 1 1 -Epifix Mesh (per sq cm) 11 11 Pain Scale: 0-10 Numeric Is Patient Pain Free? Yes Yes Yes - Nurse 3 - General Ulcer D/C NN Start: 11/28/23 09:28 Freq: Status: Active Protocol: Activity Type Activity Date Activity User E-sign Co-sign Detail Recorded Client Recorded Date Recorded By Document 11/28/23 09:56 KW Desktop 11/28/23 09:56 KW Document 12/05/23 10:13 DL Desktop 12/05/23 10:14 DL 11/28/23 12/05/23 09:56 10:13 Wound Care Center Nurse 3 1. LLE -Foul Odor after Cleansing No -Primary Dressing Applied Mepilex Border Mepilex Border -Other Dressing epifix/hydrogel -Primary Dressing Covered/Secured with Dry Gauze -Mepilex Border 1 1 Left -Tubular Bandage Double Layer Double Layer -Size of Tubigrip Used Size E Size E -Size E ($) 2 1 Treatment Response Procedure Tolerated Well Pain Scale: 0-10 Numeric Is Patient Pain Free? Yes Yes WC - Visit Discharge Discharge Condition Stable Stable Ambulatory Status Ambulatory Ambulatory Transportation Private Auto Private Auto Medication Reconcilliation completed & No provided to patient/care provider Clinical Summary of Care Provided Yes Assessment/Plan Assessment/Plan (1) Venous insufficiency (chronic) (peripheral): CODE(S): I87.2 - Venous insufficiency (chronic) (peripheral) PLAN: Exam performed Neurovascular status intact, will consider arterial studies if there are any delays in healing Wound decreased in size. No infection. Today left lower extremity wound was excisionally debrided down to including level of subcutaneous tissue of all nonviable tissue using 3 mm dermal curette. Topical anesthesia was used. Pre and postdebridement measurements documented nursing notes. Patient tolerated procedure well. Topical anesthesia used. Hemostasis obtained with light compression. Wound was flushed with copious amounts normal sterile saline, swab culture taken No additional antibiotics needed at this time Today EpiFix graft was applied 4 x 4.5 cm meshed graft, 11 billing units to its entirety to the left leg wound. Entire graft used, no waste. This was stabilized with overlying Adaptic, 4 x 4's, DSD and 3M compression dressing. Patient will follow-up for nursing dressing change and next week for additional care. Significant wound improvement noted today. Patient to follow-up in 1 week (2) Non-pressure chronic ulcer of left ankle with fat layer exposed: CODE(S): L97.322 - Non-pressure chronic ulcer of left ankle with fat layer exposed
--- NOTE | 2023-12-18 09:53 | WC ---
12/12/2023 LT LEG ULCER
[2023-12-19 09:08] VITALS: BP 154/63; PULSE 70; RESP 18; TEMP 36.2; BMI 31.7
--- NOTE | 2023-12-19 10:28 | PCM.WC.PN ---
History of Present Illness Date of Service: 12/19/23 History of Wound: 72-year-old male has had a wound since May 2023. Patient was chopping firewood and had a few piece of wood fall onto his left leg. Patient suffered a laceration was seen in the emergency department at that time which they flushed and cleaned the wound and closed it primarily after updating his tetanus status. Patient subsequently had his sutures removed and developed a full-thickness ulceration to his left medial leg. Patient had been performing self-care with daily dressing changes and noticed no healing, therefore, he presents today. Patient has no obvious medical problems and is not currently on any long-term medications. Patient does have bilateral lower extremity swelling. 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 Patient notes some pain to the wound site. Patient has no other complaints. Objective Data Objective Data Vital Signs: Vital Signs Temp Pulse Resp BP O2 Del Method 97.2 F L 70 18 154/63 H Room Air 12/19/23 09:08 12/19/23 09:08 12/19/23 09:08 12/19/23 09:08 12/19/23 09:08 Oxygen Delivery Method Room Air Weight: 106.141 kg Body Mass Index (BMI) 31.7 Physical Exam Narrative Patient has palpable 2 out of 4 DP PT pulses to right lower extremity. Left lower extremity PT is palpable 2 out of 4. Dorsalis pedis is biphasic On Doppler examination. Patient has +2 pitting edema to bilateral lower extremity perimalleolar region with positive hemosiderin deposits and superficial varicosities. Patient has intact light touch protective sensation as well as deep tendon reflexes Achilles. No obvious clonus. Full-thickness wound noted to the medial left ankle along the course of the great saphenous vein with a stable granular base. Wound decreased in size. No overt signs of infection such as erythema malodor or purulent drainage warmth. There is some pain to the wound and periwound area. Musculoskeletal muscular strength full to bilateral lower extremity compartments. No wounds forming deformities noted. No sign DVT. Const alert and oriented x3 Debridement Note Debridement Note Post-Debridement Measurements and Additional Note: Post-Debridement Measurements/Treatment KIRSTY - Nurse 1 - General Ulcer Assessment Start: 11/28/23 09:28 Freq: Status: Active Protocol: LOWEXT Activity Type Activity Date Activity User E-sign Co-sign Detail Recorded Client Recorded Date Recorded By Document 11/28/23 09:28 RB Desktop 11/28/23 09:30 RB Document 12/05/23 08:57 DL Desktop 12/05/23 09:06 DL Document 12/12/23 09:11 KW Desktop 12/12/23 09:13 KW Document 12/19/23 09:08 KW Desktop 12/19/23 09:20 KW 11/28/23 12/05/23 12/12/23 09:28 08:57 09:11 WC - Today's Visit Information Type of service Follow-up Visit Follow-up Visit Follow-up Visit (Physician/SOFTWARE SUPPORT ANALYST (Physician/SOFTWARE SUPPORT ANALYST (Physician/SOFTWARE SUPPORT ANALYST ) ) ) Arrival Mode Ambulatory Ambulatory Ambulatory Transfer Assistance None None None Patient Identification Verified (Name & Yes Yes Yes ) Patient Requires Transmission-Based No No No Precautions Height and Weight Body Mass Index (BMI) 31.7 31.7 31.7 BMI Classification Obese Obese Obese Vital Signs Temperature (97.8 F-99.1 F) 97.1 F L 97.9 F 97.7 F L Temperature Source Temporal Temporal Temporal Pulse Rate (60-100) 67 72 Pulse Location Monitor Monitor Respiratory Rate (12-18) 18 20 H 20 H Respiratory rate source Observation Observation Oxygen Delivery Method Blood Pressure (90/60-120/80) 154/67 H 169/78 H Blood Pressure Mean (mm Hg) 96 108 Source Monitor Monitor Position Semi-Fowlers Blood Pressure Location Left Arm History Since Last Visit- (Skip if this is Patient's initial visit) Have you changed medications since your No No No last visit? Any new allergies or adverse reactions No No No Had a fall/change in ADL's that may No No No increase risk of falls Signs or symptoms of abuse and/or No No No neglect since last visit Have you been in the hospital since your No No No last visit? Has dressing in place as prescribed Yes Yes No Has compression in place as prescribed Yes Yes Yes Has offloadiing in place as prescribed No N/A N/A Experienced any changes in pain level or No No No management Left Footwear Right Footwear Pain Scale: 0-10 Numeric Is Patient Pain Free? Yes Yes Yes 12/19/23 09:08 WC - Today's Visit Information Type of service Follow-up Visit (Physician/SOFTWARE SUPPORT ANALYST ) Arrival Mode Ambulatory Transfer Assistance Patient Identification Verified (Name & Yes ) Patient Requires Transmission-Based Precautions Height and Weight Body Mass Index (BMI) 31.7 BMI Classification Obese Vital Signs Temperature (97.8 F-99.1 F) 97.2 F L Temperature Source Temporal Pulse Rate (60-100) 70 Pulse Location Apical Respiratory Rate (12-18) 18 Respiratory rate source Observation Oxygen Delivery Method Room Air Blood Pressure (90/60-120/80) 154/63 H Blood Pressure Mean (mm Hg) 93 Source Monitor Position Semi-Fowlers Blood Pressure Location Left Arm History Since Last Visit- (Skip if this is Patient's initial visit) Have you changed medications since your No last visit? Any new allergies or adverse reactions No Had a fall/change in ADL's that may No increase risk of falls Signs or symptoms of abuse and/or No neglect since last visit Have you been in the hospital since your No last visit? Has dressing in place as prescribed Yes Has compression in place as prescribed Yes Has offloadiing in place as prescribed N/A Experienced any changes in pain level or No management Left Footwear Regular Shoe Right Footwear Regular Shoe Pain Scale: 0-10 Numeric Is Patient Pain Free? Yes WC - Nurse 1 - General Ulcer Measurement Start: 11/28/23 09:28 Freq: Status: Active Protocol: Activity Type Activity Date Activity User E-sign Co-sign Detail Recorded Client Recorded Date Recorded By Document 11/28/23 09:28 RB Desktop 11/28/23 09:30 RB Document 12/05/23 08:57 DL Desktop 12/05/23 09:06 DL Document 12/12/23 09:11 KW Desktop 12/12/23 09:13 KW Document 12/19/23 09:08 KW Desktop 12/19/23 09:20 KW 11/28/23 12/05/23 12/12/23 09:28 08:57 09:11 Wound Center Nurse 1 1. LLE -Combined with other wound No -Current Size (cm) - Length 4 4 3.9 -Current Size (cm) - Width 2.2 2 2.4 -Current Size (cm) - Depth 0.1 0.1 0.1 -Total Square Cm 8.8 8 9.36 -Photo Taken Yes Yes -Tunneling No -Undermining/Tunneling No -Circular Undermining No -Exudate Amt Large Medium Medium -Exudate Type Serosanguineous Serosanguineous Serosanguineous -Wound Margin Distinct, Distinct, Distinct, Outline Outline Outline Attached Attached Attached -Granulation Amt Medium (34-66%) Medium (34-66%) Medium (34-66%) -Granulation Quality [place] Red Red -Slough/Fibrin Yes -Necrosis Amt Medium (34-66%) Medium (34-66%) Medium (34-66%) -Necrotic Tissue Type Adherent Slough Adherent Slough Adherent Slough -Structure Exposed N/A N/A N/A -Texture (Astrid-wound Skin Appearance) Assessed Scarring Scarring -Moisture (Astrid-wound Skin Appearance) Assessed No Abnormality No Abnormality -Color (Astrid-wound Skin Appearance) Hemosiderin No Abnormality No Abnormality Staining -Temperature (Astrid-wound Skin No Abnormality No Abnormality No Abnormality Appearance) (Pt Warm) (Pt Warm) (Pt Warm) -Tenderness on Palpation (Astrid-wound No No Skin Appearance) -Ulcer Cleansing Wound Cleanser Soap and Water Soap and Water -Foul Odor after Cleansing No No No -Anesthetic Used 5% Lidocaine 5% Lidocaine 5% Lidocaine Gel Gel Gel Lower Limb Edema Present Yes Left Calf (cm) 41 39.5 40.2 Left Ankle (cm) 23.7 23.2 22.5 12/19/23 09:08 Wound Center Nurse 1 1. LLE -Combined with other wound -Current Size (cm) - Length 4.6 -Current Size (cm) - Width 2.4 -Current Size (cm) - Depth 0.1 -Total Square Cm 11.04 -Photo Taken -Tunneling -Undermining/Tunneling -Circular Undermining -Exudate Amt Large -Exudate Type Serosanguineous -Wound Margin Distinct, Outline Attached -Granulation Amt Large (67-100%) -Granulation Quality Red -Slough/Fibrin -Necrosis Amt -Necrotic Tissue Type -Structure Exposed -Texture (Astrid-wound Skin Appearance) Assessed -Moisture (Astrid-wound Skin Appearance) Assessed -Color (Astrid-wound Skin Appearance) Assessed -Temperature (Astrid-wound Skin No Abnormality Appearance) (Pt Warm) -Tenderness on Palpation (Astrid-wound No Skin Appearance) -Ulcer Cleansing Soap and Water -Foul Odor after Cleansing No -Anesthetic Used 5% Lidocaine Gel Lower Limb Edema Present Left Calf (cm) 40.4 Left Ankle (cm) 22.4 WC - Nurse 2 - General Ulcer CM Notes Start: 11/28/23 09:28 Freq: Status: Active Protocol: Activity Type Activity Date Activity User E-sign Co-sign Detail Recorded Client Recorded Date Recorded By Document 11/28/23 09:37 Laptop 11/28/23 09:44 Document 12/05/23 09:54 Laptop 12/05/23 10:01 Document 12/12/23 09:21 Laptop 12/12/23 09:29 JF Edit Result 12/12/23 09:21 JF (1) [id number] 12/18/23 09:01 Document 12/19/23 09:49 Laptop 12/19/23 09:55 (1) 1. LLE - Apply Skin Sub - 1st 25 sq cm - Legs => 1 - Epifix Mesh (per sq cm) => 11 11/28/23 12/05/23 12/12/23 09:37 09:54 09:21 Wound Center Nurse 2 1. LLE -Time 09:37 09:54 -Correct Patient Yes Yes Yes -Correct Side, Site, Position Yes Yes Yes -Correct Procedure Yes Yes Yes -Procedure Performed Yes Yes Yes -Type of Procedure Debridement Debridement Debridement -Clinical Debridement Subcutaneous Subcutaneous Subcutaneous -Tissue Removed Subcutaneous Subcutaneous Subcutaneous -Post Debridement (cm) - Length 4.8 4.2 4.0 -Post Debridement (cm) - Width 2.3 2.3 2.5 -Post Debridement (cm) - Depth 0.1 0.1 0.1 -Total Square (Post) (cm) 11.04 9.66 10.00 -Area of Debridement (cm) - Length 4.8 4.2 4.0 -Area of Debridement (cm) - Width 2.3 2.3 2.5 -Total Square (Area) (cm) 11.04 9.66 10.00 -Tunneling No No No -Undermining/Tunneling No No No -Circular Undermining No No No -Wound/Ulcer Outcome Not Healed Not Healed Not Healed -Ulcer Cleansing Rinsed/ Rinsed/ Rinsed/ Irrigated with Irrigated with Irrigated with Saline Saline Saline -Foul Odor after Cleansing No No No -Bioengineered Tissue Yes Yes Yes -Type of Bioengineered Tissue Epifix Mesh Epifix Mesh Epifix Mesh -Expiration Date 04/28/28 05/28/28 06/28/28 -Product Lot Number [id number] -Percent Used 100 100 100 -Lot number of Saline Used [id number] -Bleeding Controlled with Pressure Pressure Pressure -Treatment Response Procedure Procedure Procedure Tolerated Well Tolerated Well Tolerated Well -Offloading No No No -Debridement - Subq, 1st 20sq cm No No No -Apply Skin Sub - 1st 25 sq cm - Legs 1 1 1 -Epifix Mesh (per sq cm) 11 11 11 Pain Scale: 0-10 Numeric Is Patient Pain Free? Yes Yes Yes 12/19/23 09:49 Wound Center Nurse 2 1. LLE -Time 09:53 -Correct Patient Yes -Correct Side, Site, Position Yes -Correct Procedure Yes -Procedure Performed Yes -Type of Procedure Debridement -Clinical Debridement Subcutaneous -Tissue Removed Subcutaneous -Post Debridement (cm) - Length 4.5 -Post Debridement (cm) - Width 2.5 -Post Debridement (cm) - Depth 0.1 -Total Square (Post) (cm) 11.25 -Area of Debridement (cm) - Length 4.5 -Area of Debridement (cm) - Width 2.5 -Total Square (Area) (cm) 11.25 -Tunneling No -Undermining/Tunneling No -Circular Undermining No -Wound/Ulcer Outcome Not Healed -Ulcer Cleansing Rinsed/ Irrigated with Saline -Foul Odor after Cleansing No -Bioengineered Tissue Yes -Type of Bioengineered Tissue Epifix Mesh -Expiration Date 06/28/28 -Product Lot Number [id number] -Percent Used 100 -Lot number of Saline Used [id number] -Bleeding Controlled with Pressure -Treatment Response Procedure Tolerated Well -Offloading No -Debridement - Subq, 1st 20sq cm No -Apply Skin Sub - 1st 25 sq cm - Legs 1 -Epifix Mesh (per sq cm) 11 Pain Scale: 0-10 Numeric Is Patient Pain Free? Yes WC - Nurse 3 - General Ulcer D/C NN Start: 11/28/23 09:28 Freq: Status: Active Protocol: Activity Type Activity Date Activity User E-sign Co-sign Detail Recorded Client Recorded Date Recorded By Document 11/28/23 09:56 KW Desktop 11/28/23 09:56 KW Document 12/05/23 10:13 DL Desktop 12/05/23 10:14 DL Document 12/12/23 10:31 DL [id number] 12/12/23 10:32 DL Document 12/19/23 10:02 KW Desktop 12/19/23 10:08 KW 11/28/23 12/05/23 12/12/23 09:56 10:13 10:31 Wound Care Center Nurse 3 1. LLE -Ulcer Cleansing Not Cleansed -Foul Odor after Cleansing No No -Primary Dressing Applied Mepilex Border Mepilex Border Mepilex Border -Other Dressing epifix/hydrogel Epimesh/ hydrogel -Primary Dressing Covered/Secured with Dry Gauze Dry Gauze -Mepilex Border 1 1 1 -Optilok 6.5x10 Left -Multi-Layered Wrap Application -Tubular Bandage Double Layer Double Layer Single Layer -Size of Tubigrip Used Size E Size E Size E -Size E ($) 2 1 1 Treatment Response Procedure Procedure Tolerated Well Tolerated Well Pain Scale: 0-10 Numeric Is Patient Pain Free? Yes Yes Yes WC - Visit Discharge Discharge Condition Stable Stable Stable Ambulatory Status Ambulatory Ambulatory Ambulatory Transportation Private Auto Private Auto Private Auto Medication Reconcilliation completed & No provided to patient/care provider Clinical Summary of Care Provided Yes 12/19/23 10:02 Wound Care Center Nurse 3 1. LLE -Ulcer Cleansing -Foul Odor after Cleansing -Primary Dressing Applied Optilok 6.5x10 -Other Dressing -Primary Dressing Covered/Secured with Dry Gauze & Roll Gauze, Secured with Tape -Mepilex Border -Optilok 6.5x10 1 Left -Multi-Layered Wrap Application Multi-Layer Comp - Left ($) -Tubular Bandage -Size of Tubigrip Used -Size E ($) Treatment Response Pain Scale: 0-10 Numeric Is Patient Pain Free? Yes WC - Visit Discharge Discharge Condition Stable Ambulatory Status Ambulatory Transportation Private Auto Medication Reconcilliation completed & No provided to patient/care provider Clinical Summary of Care Provided Yes Assessment/Plan Assessment/Plan (1) Venous insufficiency (chronic) (peripheral): CODE(S): I87.2 - Venous insufficiency (chronic) (peripheral) PLAN: Exam performed Neurovascular status intact, will consider arterial studies if there are any delays in healing Wound decreased in size. No infection. Today left lower extremity wound was excisionally debrided down to including level of subcutaneous tissue of all nonviable tissue using 3 mm dermal curette. Topical anesthesia was used. Pre and postdebridement measurements documented nursing notes. Patient tolerated procedure well. Topical anesthesia used. Hemostasis obtained with light compression. Wound was flushed with copious amounts normal sterile saline, swab culture taken No additional antibiotics needed at this time Today EpiFix graft was applied 4 x 4.5 cm meshed graft, 11 billing units to its entirety to the left leg wound. Entire graft used, no waste. This was stabilized with overlying Adaptic, 4 x 4's, DSD and 3M compression dressing. Patient will follow-up for nursing dressing change and next week for additional care. Significant wound improvement noted today. Patient to follow-up in 1 week (2) Non-pressure chronic ulcer of left ankle with fat layer exposed: CODE(S): L97.322 - Non-pressure chronic ulcer of left ankle with fat layer exposed
[2023-12-26 09:18] VITALS: BP 119/68; PULSE 72; RESP 18; TEMP 36.5; BMI 31.7
--- NOTE | 2023-12-26 10:11 | PN.PCM_ITS ---
History of Present Illness Date of Service: 12/26/23 History of Wound: 72-year-old male has had a wound since May 2023. Patient was chopping firewood and had a few piece of wood fall onto his left leg. Patient suffered a laceration was seen in the emergency department at that time which they flushed and cleaned the wound and closed it primarily after updating his tetanus status. Patient subsequently had his sutures removed and developed a full-thickness ulceration to his left medial leg. Patient had been performing self-care with daily dressing changes and noticed no healing, therefore, he presents today. Patient has no obvious medical problems and is not currently on any long-term medications. Patient does have bilateral lower extremity swelling. 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 Patient notes some pain to the wound site. Patient has no other complaints. Objective Data Objective Data Vital Signs: Vital Signs Temp Pulse Resp BP O2 Del Method 97.7 F L 72 18 119/68 Room Air 12/26/23 09:18 12/26/23 09:18 12/26/23 09:18 12/26/23 09:18 12/19/23 09:08 Oxygen Delivery Method Room Air Weight: 106.141 kg Body Mass Index (BMI) 31.7 Physical Exam Narrative Patient has palpable 2 out of 4 DP PT pulses to right lower extremity. Left lower extremity PT is palpable 2 out of 4. Dorsalis pedis is biphasic On Doppler examination. Patient has +2 pitting edema to bilateral lower extremity perimalleolar region with positive hemosiderin deposits and superficial varicosities. Patient has intact light touch protective sensation as well as deep tendon reflexes Achilles. No obvious clonus. Full-thickness wound noted to the medial left ankle along the course of the great saphenous vein with a stable granular base. Wound decreased in size. No overt signs of infection such as erythema malodor or purulent drainage warmth. There is some pain to the wound and periwound area. Musculoskeletal muscular strength full to bilateral lower extremity compartments. No wounds forming deformities noted. No sign DVT. Const alert and oriented x3 Debridement Note Debridement Note Post-Debridement Measurements and Additional Note: Post-Debridement Measurements/Treatment KIRSTY - Nurse 1 - General Ulcer Assessment Start: 11/28/23 09:28 Freq: Status: Active Protocol: LOWEXT Activity Type Activity Date Activity User E-sign Co-sign Detail Recorded Client Recorded Date Recorded By Document 11/28/23 09:28 RB Desktop 11/28/23 09:30 RB Document 12/05/23 08:57 DL Desktop 12/05/23 09:06 DL Document 12/12/23 09:11 KW Desktop 12/12/23 09:13 KW Document 12/19/23 09:08 KW Desktop 12/19/23 09:20 KW Document 12/26/23 09:18 DL Desktop 12/26/23 09:24 DL 11/28/23 12/05/23 12/12/23 09:28 08:57 09:11 WC - Today's Visit Information Type of service Follow-up Visit Follow-up Visit Follow-up Visit (Physician/[facility]PR[facility] APPLICATION ARCHITECT (Physician/[facility] APPLICATION ARCHITECT (Physician/[facility]ISE APPLICATION ARCHITECT ) ) ) Arrival Mode Ambulatory Ambulatory Ambulatory Transfer Assistance None None None Patient Identification Verified (Name & Yes Yes Yes ) Patient Requires Transmission-Based No No No Precautions Height and Weight Body Mass Index (BMI) 31.7 31.7 31.7 BMI Classification Obese Obese Obese Vital Signs Temperature (97.8 F-99.1 F) 97.1 F L 97.9 F 97.7 F L Temperature Source Temporal Temporal Temporal Pulse Rate (60-100) 67 72 Pulse Location Monitor Monitor Respiratory Rate (12-18) 18 20 H 20 H Respiratory rate source Observation Observation Oxygen Delivery Method Blood Pressure (90/60-120/80) 154/67 H 169/78 H Blood Pressure Mean (mm Hg) 96 108 Source Monitor Monitor Position Semi-Fowlers Blood Pressure Location Left Arm History Since Last Visit- (Skip if this is Patient's initial visit) Have you changed medications since your No No No last visit? Any new allergies or adverse reactions No No No Had a fall/change in ADL's that may No No No increase risk of falls Signs or symptoms of abuse and/or No No No neglect since last visit Have you been in the hospital since your No No No last visit? Has dressing in place as prescribed Yes Yes No Has compression in place as prescribed Yes Yes Yes Has offloadiing in place as prescribed No N/A N/A Experienced any changes in pain level or No No No management Left Footwear Right Footwear Pain Scale: 0-10 Numeric Is Patient Pain Free? Yes Yes Yes 12/19/23 12/26/23 09:08 09:18 WC - Today's Visit Information Type of service Follow-up Visit Follow-up Visit (Physician/ENTERPRISE APPLICATION ARCHITECT (Physician/ENTERPRISE APPLICATION ARCHITECT ) ) Arrival Mode Ambulatory Ambulatory Transfer Assistance None Patient Identification Verified (Name & Yes Yes ) Patient Requires Transmission-Based No Precautions Height and Weight Body Mass Index (BMI) 31.7 31.7 BMI Classification Obese Obese Vital Signs Temperature (97.8 F-99.1 F) 97.2 F L 97.7 F L Temperature Source Temporal Temporal Pulse Rate (60-100) 70 72 Pulse Location Apical Monitor Respiratory Rate (12-18) 18 18 Respiratory rate source Observation Observation Oxygen Delivery Method Room Air Blood Pressure (90/60-120/80) 154/63 H 119/68 Blood Pressure Mean (mm Hg) 93 85 Source Monitor Monitor Position Semi-Fowlers Blood Pressure Location Left Arm History Since Last Visit- (Skip if this is Patient's initial visit) Have you changed medications since your No No last visit? Any new allergies or adverse reactions No No Had a fall/change in ADL's that may No No increase risk of falls Signs or symptoms of abuse and/or No No neglect since last visit Have you been in the hospital since your No No last visit? Has dressing in place as prescribed Yes Yes Has compression in place as prescribed Yes Yes Has offloadiing in place as prescribed N/A N/A Experienced any changes in pain level or No No management Left Footwear Regular Shoe Right Footwear Regular Shoe Pain Scale: 0-10 Numeric Is Patient Pain Free? Yes Yes - Nurse 1 - General Ulcer Measurement Start: 11/28/23 09:28 Freq: Status: Active Protocol: Activity Type Activity Date Activity User E-sign Co-sign Detail Recorded Client Recorded Date Recorded By Document 11/28/23 09:28 RB Desktop 11/28/23 09:30 RB Document 12/05/23 08:57 DL Desktop 12/05/23 09:06 DL Document 12/12/23 09:11 KW Desktop 12/12/23 09:13 KW Document 12/19/23 09:08 KW Desktop 12/19/23 09:20 KW Document 12/26/23 09:18 DL Desktop 12/26/23 09:24 DL 04/10/2112/05/23 12/12/23 09:28 08:57 09:11 Wound Center Nurse 1 1. LLE -Combined with other wound No -Current Size (cm) - Length 4 4 3.9 -Current Size (cm) - Width 2.2 2 2.4 -Current Size (cm) - Depth 0.1 0.1 0.1 -Total Square Cm 8.8 8 9.36 -Photo Taken Yes Yes -Tunneling No -Undermining/Tunneling No -Circular Undermining No -Exudate Amt Large Medium Medium -Exudate Type Serosanguineous Serosanguineous Serosanguineous -Wound Margin Distinct, Distinct, Distinct, Outline Outline Outline Attached Attached Attached -Granulation Amt Medium (34-66%) Medium (34-66%) Medium (34-66%) -Granulation Quality [place] Red Red -Slough/Fibrin Yes -Necrosis Amt Medium (34-66%) Medium (34-66%) Medium (34-66%) -Necrotic Tissue Type Adherent Slough Adherent Slough Adherent Slough -Structure Exposed N/A N/A N/A -Texture (Astrid-wound Skin Appearance) Assessed Scarring Scarring -Moisture (Astrid-wound Skin Appearance) Assessed No Abnormality No Abnormality -Color (Astrid-wound Skin Appearance) Hemosiderin No Abnormality No Abnormality Staining -Temperature (Astrid-wound Skin No Abnormality No Abnormality No Abnormality Appearance) (Pt Warm) (Pt Warm) (Pt Warm) -Tenderness on Palpation (Astrid-wound No No Skin Appearance) -Ulcer Cleansing Wound Cleanser Soap and Water Soap and Water -Foul Odor after Cleansing No No No -Anesthetic Used 5% Lidocaine 5% Lidocaine 5% Lidocaine Gel Gel Gel Lower Limb Edema Present Yes Left Calf (cm) 41 39.5 40.2 Left Ankle (cm) 23.7 23.2 22.5 12/19/23 12/26/23 09:08 09:18 Wound Center Nurse 1 1. LLE -Combined with other wound -Current Size (cm) - Length 4.6 4 -Current Size (cm) - Width 2.4 2.3 -Current Size (cm) - Depth 0.1 0.2 -Total Square Cm 11.04 9.2 -Photo Taken -Tunneling -Undermining/Tunneling -Circular Undermining -Exudate Amt Large Medium -Exudate Type Serosanguineous Serosanguineous -Wound Margin Distinct, Distinct, Outline Outline Attached Attached -Granulation Amt Large (67-100%) Medium (34-66%) -Granulation Quality Red [place] -Slough/Fibrin -Necrosis Amt Medium (34-66%) -Necrotic Tissue Type Adherent Slough -Structure Exposed N/A -Texture (Astrid-wound Skin Appearance) Assessed Scarring -Moisture (Astrid-wound Skin Appearance) Assessed No Abnormality -Color (Astrid-wound Skin Appearance) Assessed No Abnormality -Temperature (Astrid-wound Skin No Abnormality No Abnormality Appearance) (Pt Warm) (Pt Warm) -Tenderness on Palpation (Astrid-wound No Skin Appearance) -Ulcer Cleansing Soap and Water Soap and Water -Foul Odor after Cleansing No No -Anesthetic Used 5% Lidocaine 5% Lidocaine Gel Gel Lower Limb Edema Present Left Calf (cm) 40.4 38.2 Left Ankle (cm) 22.4 221.8 WC - Nurse 2 - General Ulcer CM Notes Start: 11/28/23 09:28 Freq: Status: Active Protocol: Activity Type Activity Date Activity User E-sign Co-sign Detail Recorded Client Recorded Date Recorded By Document 11/28/23 09:37 Laptop 11/28/23 09:44 Document 12/05/23 09:54 Laptop 12/05/23 10:01 Document 12/12/23 09:21 Laptop 12/12/23 09:29 Edit Result 12/12/23 09:21 JF (1) [id number] 12/18/23 09:01 Document 12/19/23 09:49 Laptop 12/19/23 09:55 Document 12/26/23 09:38 Laptop 12/26/23 09:43 JF (1) 1. LLE - Apply Skin Sub - 1st 25 sq cm - Legs => 1 - Epifix Mesh (per sq cm) => 11 11/28/23 12/05/23 12/12/23 09:37 09:54 09:21 Wound Center Nurse 2 1. LLE -Time 09:37 09:54 -Correct Patient Yes Yes Yes -Correct Side, Site, Position Yes Yes Yes -Correct Procedure Yes Yes Yes -Procedure Performed Yes Yes Yes -Type of Procedure Debridement Debridement Debridement -Clinical Debridement Subcutaneous Subcutaneous Subcutaneous -Tissue Removed Subcutaneous Subcutaneous Subcutaneous -Post Debridement (cm) - Length 4.8 4.2 4.0 -Post Debridement (cm) - Width 2.3 2.3 2.5 -Post Debridement (cm) - Depth 0.1 0.1 0.1 -Total Square (Post) (cm) 11.04 9.66 10.00 -Area of Debridement (cm) - Length 4.8 4.2 4.0 -Area of Debridement (cm) - Width 2.3 2.3 2.5 -Total Square (Area) (cm) 11.04 9.66 10.00 -Tunneling No No No -Undermining/Tunneling No No No -Circular Undermining No No No -Wound/Ulcer Outcome Not Healed Not Healed Not Healed -Ulcer Cleansing Rinsed/ Rinsed/ Rinsed/ Irrigated with Irrigated with Irrigated with Saline Saline Saline -Foul Odor after Cleansing No No No -Bioengineered Tissue Yes Yes Yes -Type of Bioengineered Tissue Epifix Mesh Epifix Mesh Epifix Mesh -Expiration Date 04/28/28 05/28/28 06/28/28 -Product Lot Number [id number] -Percent Used 100 100 100 -Lot number of Saline Used [id number] -Bleeding Controlled with Pressure Pressure Pressure -Treatment Response Procedure Procedure Procedure Tolerated Well Tolerated Well Tolerated Well -Offloading No No No -Debridement - Subq, 1st 20sq cm No No No -Apply Skin Sub - 1st 25 sq cm - Legs 1 1 1 -Epifix Mesh (per sq cm) 11 11 11 Pain Scale: 0-10 Numeric Is Patient Pain Free? Yes Yes Yes 12/19/23 12/26/23 09:49 09:38 Wound Center Nurse 2 1. LLE -Time 09:53 09:42 -Correct Patient Yes Yes -Correct Side, Site, Position Yes Yes -Correct Procedure Yes Yes -Procedure Performed Yes Yes -Type of Procedure Debridement Debridement -Clinical Debridement Subcutaneous Subcutaneous -Tissue Removed Subcutaneous Subcutaneous -Post Debridement (cm) - Length 4.5 4.4 -Post Debridement (cm) - Width 2.5 2.3 -Post Debridement (cm) - Depth 0.1 0.1 -Total Square (Post) (cm) 11.25 10.12 -Area of Debridement (cm) - Length 4.5 4.4 -Area of Debridement (cm) - Width 2.5 2.3 -Total Square (Area) (cm) 11.25 10.12 -Tunneling No No -Undermining/Tunneling No No -Circular Undermining No No -Wound/Ulcer Outcome Not Healed Not Healed -Ulcer Cleansing Rinsed/ Rinsed/ Irrigated with Irrigated with Saline Saline -Foul Odor after Cleansing No No -Bioengineered Tissue Yes Yes -Type of Bioengineered Tissue Epifix Mesh Epifix Mesh -Expiration Date 06/28/28 06/28/28 -Product Lot Number [id number] -Percent Used 100 100 -Lot number of Saline Used [id number] -Bleeding Controlled with Pressure Pressure -Treatment Response Procedure Procedure Tolerated Well Tolerated Well -Offloading No No -Debridement - Subq, 1st 20sq cm No No -Apply Skin Sub - 1st 25 sq cm - Legs 1 1 -Epifix Mesh (per sq cm) 11 11 Pain Scale: 0-10 Numeric Is Patient Pain Free? Yes Yes - Nurse 3 - General Ulcer D/C NN Start: 11/28/23 09:28 Freq: Status: Active Protocol: Activity Type Activity Date Activity User E-sign Co-sign Detail Recorded Client Recorded Date Recorded By Document 11/28/23 09:56 KW Desktop 11/28/23 09:56 KW Document 12/05/23 10:13 DL Desktop 12/05/23 10:14 DL Document 12/12/23 10:31 DL [id number] 12/12/23 10:32 DL Document 12/19/23 10:02 KW Desktop 12/19/23 10:08 KW Document 12/26/23 09:54 KW Desktop 12/26/23 09:54 KW 11/28/23 12/05/23 12/12/23 09:56 10:13 10:31 Wound Care Center Nurse 3 1. LLE -Ulcer Cleansing Not Cleansed -Foul Odor after Cleansing No No -Primary Dressing Applied Mepilex Border Mepilex Border Mepilex Border -Other Dressing epifix/hydrogel Epimesh/ hydrogel -Primary Dressing Covered/Secured with Dry Gauze Dry Gauze -Mepilex Border 1 1 1 -Optilok 6.5x10 Left -Multi-Layered Wrap Application -Tubular Bandage Double Layer Double Layer Single Layer -Size of Tubigrip Used Size E Size E Size E -Size E ($) 2 1 1 Treatment Response Procedure Procedure Tolerated Well Tolerated Well Pain Scale: 0-10 Numeric Is Patient Pain Free? Yes Yes Yes WC - Visit Discharge Discharge Condition Stable Stable Stable Ambulatory Status Ambulatory Ambulatory Ambulatory Transportation Private Auto Private Auto Private Auto Medication Reconcilliation completed & No provided to patient/care provider Clinical Summary of Care Provided Yes 12/19/23 12/26/23 10:02 09:54 Wound Care Center Nurse 3 1. LLE -Ulcer Cleansing -Foul Odor after Cleansing -Primary Dressing Applied Optilok 6.5x10 Mepilex Border -Other Dressing -Primary Dressing Covered/Secured with Dry Gauze & Roll Gauze, Secured with Tape -Mepilex Border 1 -Optilok 6.5x10 1 Left -Multi-Layered Wrap Application Multi-Layer Comp - Left ($) -Tubular Bandage Double Layer -Size of Tubigrip Used Size E -Size E ($) 2 Treatment Response Pain Scale: 0-10 Numeric Is Patient Pain Free? Yes Yes WC - Visit Discharge Discharge Condition Stable Stable Ambulatory Status Ambulatory Ambulatory Transportation Private Auto Private Auto Medication Reconcilliation completed & No No provided to patient/care provider Clinical Summary of Care Provided Yes Yes Assessment/Plan Assessment/Plan (1) Venous insufficiency (chronic) (peripheral): CODE(S): I87.2 - Venous insufficiency (chronic) (peripheral) PLAN: Exam performed Neurovascular status intact, will consider arterial studies if there are any delays in healing Wound decreased in size. No infection. Today left lower extremity wound was excisionally debrided down to including level of subcutaneous tissue of all nonviable tissue using 3 mm dermal curette. Topical anesthesia was used. Pre and postdebridement measurements documented nursing notes. Patient tolerated procedure well. Topical anesthesia used. Hemostasis obtained with light compression. Wound was flushed with copious amounts normal sterile saline, swab culture taken No additional antibiotics needed at this time Today EpiFix graft was applied 4 x 4.5 cm meshed graft, 11 billing units to its entirety to the left leg wound. Entire graft used, no waste. This was stabilized with overlying Adaptic, 4 x 4's, DSD and 3M compression dressing. Patient will follow-up for nursing dressing change and next week for additional care. Significant wound improvement noted today. Patient to follow-up in 1 week (2) Non-pressure chronic ulcer of left ankle with fat layer exposed: CODE(S): L97.322 - Non-pressure chronic ulcer of left ankle with fat layer exposed
--- NOTE | 2024-01-02 10:31 | PCM.WC.PN ---
History of Present Illness Date of Service: 01/02/24 History of Wound: 72-year-old male has had a wound since May 2023. Patient was chopping firewood and had a few piece of wood fall onto his left leg. Patient suffered a laceration was seen in the emergency department at that time which they flushed and cleaned the wound and closed it primarily after updating his tetanus status. Patient subsequently had his sutures removed and developed a full-thickness ulceration to his left medial leg. Patient had been performing self-care with daily dressing changes and noticed no healing, therefore, he presents today. Patient has no obvious medical problems and is not currently on any long-term medications. Patient does have bilateral lower extremity swelling. 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 Patient notes some pain to the wound site. Patient has no other complaints. Objective Data Objective Data Vital Signs: Vital Signs Temp Pulse Resp BP O2 Del Method 97.7 F L 72 18 119/68 Room Air 12/26/23 09:18 12/26/23 09:18 12/26/23 09:18 12/26/23 09:18 12/19/23 09:08 Oxygen Delivery Method Room Air Weight: 106.141 kg Body Mass Index (BMI) 31.7 Physical Exam Narrative Patient has palpable 2 out of 4 DP PT pulses to right lower extremity. Left lower extremity PT is palpable 2 out of 4. Dorsalis pedis is biphasic On Doppler examination. Patient has +2 pitting edema to bilateral lower extremity perimalleolar region with positive hemosiderin deposits and superficial varicosities. Patient has intact light touch protective sensation as well as deep tendon reflexes Achilles. No obvious clonus. Full-thickness wound noted to the medial left ankle along the course of the great saphenous vein with a stable granular base. Wound decreased in size. No overt signs of infection such as erythema malodor or purulent drainage warmth. There is some pain to the wound and periwound area. Musculoskeletal muscular strength full to bilateral lower extremity compartments. No wounds forming deformities noted. No sign DVT. Const alert and oriented x3 Assessment/Plan Assessment/Plan (1) Venous insufficiency (chronic) (peripheral): CODE(S): I87.2 - Venous insufficiency (chronic) (peripheral) PLAN: Exam performed Neurovascular status intact, will consider arterial studies if there are any delays in healing Wound decreased in size. No infection. Today left lower extremity wound was excisionally debrided down to including level of subcutaneous tissue of all nonviable tissue using 3 mm dermal curette. Topical anesthesia was used. Pre and postdebridement measurements documented nursing notes. Patient tolerated procedure well. Topical anesthesia used. Hemostasis obtained with light compression. Wound was flushed with copious amounts normal sterile saline, swab culture taken No additional antibiotics needed at this time Patient will start performing self dressing changes consisting of Aurea DSD and Tubigrip for edema management on a daily basis. Significant wound improvement noted today. Patient to follow-up in 1 week (2) Non-pressure chronic ulcer of left ankle with fat layer exposed: CODE(S): L97.322 - Non-pressure chronic ulcer of left ankle with fat layer exposed
== END 2023-12-26 23:59 | disposition home or self-care (01) ==
LOC: WC 09:15
PROVIDERS: PCP Family Medicine; Referring Provider Family Medicine; Visit Provider Podiatrist
DX: L97.322 Non-pressure chronic ulcer of left ankle with fat layer exposed (principal); S81.812S Laceration without foreign body, left lower leg, sequela; W20.8XXS Other cause of strike by thrown, projected or falling object, sequela; I87.2 Venous insufficiency (chronic) (peripheral); Z79.899 Other long term (current) drug therapy
CPT/HCPCS: 15271; 29581; Q4186

== ENCOUNTER 2024-01-23 09:15 | Outpatient (RCR) | payer MEDICARE, OTHER, SELFPAY ==
[2023-12-27 00:23] VITALS: BP 119/68; PULSE 72; RESP 18; TEMP 36.5; BMI 31.7
[2024-01-02 09:18] VITALS: BP 142/77; PULSE 68; RESP 18; TEMP 36.2; BMI 31.7
--- NOTE | 2024-01-05 07:46 | ART_ITS ---
Reason For Study: LE Wound Procedure A bilateral lower extremity continuous wave Doppler with analog waveform analysis,segmental pressures,and ankle brachial indexes without exercise. Left Segmental Pressures Left brachial= 135mmHg. Left posterior tibial artery = 198mmHg. Left dorsalis pedis artery = 188mmHg. Left digit = 80 mmHg. The left posterior tibial artery waveforms are triphasic. The left dorsalis pedis waveforms are triphasic. Right Segmental Pressures Right brachial= 139mmHg. Right posterior tibial artery = 167mmHg. Right dorsalis pedis artery = 171mmHg. Right digit = 125 mmHg. The right posterior tibial artery waveforms are triphasic. The right dorsalis pedis waveforms are triphasic. Indices The right ankle brachial index by the posterior tibial artery is 1.20. The right ankle brachial index by the dorsalis pedis is 1.23. The right digital-brachial index is 0.90. The left ankle brachial index by the posterior tibial artery is 1.42. The left ankle brachial index by the dorsalis pedis is 1.35. The left digital-brachial index is 0.58. VL/Lower Ext Art Exam w/o Exercis Interpretation Summary Triphasic Doppler waveforms are noted at ankle level bilaterally. Pulse-volume recordings appear diminished at digital level on the left, but satisfactory at all other levels b ilaterally. The resting right ankle-brachial index is normal. The resting left ankle-brachial i ndex is supra-normal. The right digital-brachial index is normal. The left digital-brachial index is mildly diminished. There is evidence of arterial calcification at ankle level on the left. Arteria l flow appears normal at ankle level bilaterally, and at digital level on the right. There is evidenc e of mild arterial occlusive disease at digital level on the left. Ordering Physician: Nick Forbes Referring Physician: Bertin Lantigua MD Performed By: Cisco Fowler RVT
--- NOTE | 2024-01-05 07:46 | VDLE_ITS ---
Version 2 Reason For Study: LE Ulcers RIGHT LEFT CFV is compressible, spontaneous, phasic, CFV is compressible, spontaneous, phasic, competent and demonstrates normal competent, and demonstrates normal augmentation. augmentation. FV is compressible, spontaneous, phasic, FV is compressible, spontaneous, phasic, competent and demonstrates normal competent and demonstrates normal augmentation. augmentation. POP V is compressible, phasic, and POP V is compressible, spontaneous, phasic, INCOMPETENT for greater than 1.0 second. competent and demonstrates normal T/P Trunk is compressible. augmentation. PTV is compressible. T/P Trunk is compressible. RT PerV is compressible. PTV is compressible. SFJ is competent and measures 0.76 cm. LT PerV is compressible. GSV proximal thigh measures 0.55 x 0.54 cm. SFJ is competent and measures 0.76 cm. GSV at knee measures 0.59 x 0.60 cm. GSV proximal thigh measures 0.34 x 0.36 cm. GSV above knee is competent. GSV above knee is competent. GSV below knee is INCOMPETENT for greater GSV from mid calf to knee is dilated and than 0.5 seconds. noncompressible with intraluminal echoes. ASV distal calf is INCOMPETENT for greater Finding is consistent with acute SVT. than 0.5 seconds and measures 0.39 x 0.47 Unable to visualize distal calf due to cm. wound/bandage. SSV proximal calf is competent and measures ASV proximal calf is INCOMPETENT for greater 0.07 x 0.07 cm. than 0.5 seconds and measures 0.32 x 0.33 cm. Procedure SSV proximal calf is competent and measures This is a venous duplex using B-mode, color 0.14 x 0.13 cm. flow and spectral Doppler. Exam performed in department. The exam was diagnostic. A preliminary report was called and/or faxed to Mei at [facility]. VL/Venous Duplex US - Miguelito Extrem Interpretation Summary Deep veins of the lower extremities are bilaterally patent and compressible seg mentally. There is no evidence of deep vein thrombosis on either side. The right popliteal vein is in competent. Valvular competence appears intact within the proximal deep venous system on the left . The right great saphenous vein appears patent and compressible segmentally. Sapheno-femoral graham ctions are bilaterally competent . The right great saphenous vein appears competent above the knee. The right great saphenous vein appears incompetent below the knee. The left great sapheno us vein appears competent above the knee. Acute superficial thrombophlebitis is noted in the le ft great saphenous vein from the knee to the mid-calf. The distal left great saphenous vein was no t visualized due to the presence of a bandage. Small saphenous veins are patent and competent bilat erally. The accessory saphenous vein in the right distal calf is incompetent. The accessory saphenous vein in the left proximal calf is incompetent. Ordering Physician: Nick Forbes Referring Physician: Bertin Lantigua Performed By: Cisco Fowler RVT
[2024-01-09 09:16] VITALS: BP 145/67; PULSE 69; RESP 18; TEMP 36.3; BMI 31.7
--- NOTE | 2024-01-09 09:26 | PN.PCM_ITS ---
History of Present Illness Date of Service: 01/09/24 History of Wound: 72-year-old male has had a wound since May 2023. Patient was chopping firewood and had a few piece of wood fall onto his left leg. Patient suffered a laceration was seen in the emergency department at that time which they flushed and cleaned the wound and closed it primarily after updating his tetanus status. Patient subsequently had his sutures removed and developed a full-thickness ulceration to his left medial leg. Patient had been performing self-care with daily dressing changes and noticed no healing, therefore, he presents today. Patient has no obvious medical problems and is not currently on any long-term medications. Patient does have bilateral lower extremity swelling. 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 Patient notes some pain to the wound site. Patient has no other complaints. Objective Data Objective Data Vital Signs: Vital Signs Temp Pulse Resp BP 97.4 F L 69 18 145/67 H 01/09/24 09:16 01/09/24 09:16 01/09/24 09:16 01/09/24 09:16 Weight: 106.141 kg Body Mass Index (BMI) 31.7 Physical Exam Narrative Patient has palpable 2 out of 4 DP PT pulses to right lower extremity. Left lower extremity PT is palpable 2 out of 4. Dorsalis pedis is biphasic On Doppler examination. Patient has +1 pitting edema to bilateral lower extremity perimalleolar region with positive hemosiderin deposits and superficial varicosities. Patient has intact light touch protective sensation as well as deep tendon reflexes Achilles. No obvious clonus. Full-thickness wound noted to the medial left ankle along the course of the great saphenous vein with a stable granular base. Wound decreased in size. No overt signs of infection such as erythema malodor or purulent drainage warmth. There is some pain to the wound and periwound area. Musculoskeletal muscular strength full to bilateral lower extremity compartments. No wounds forming deformities noted. No sign DVT. Const alert and oriented x3 Debridement Note Debridement Note Post-Debridement Measurements and Additional Note: Post-Debridement Measurements/Treatment KIRSTY - Nurse 1 - General Ulcer Assessment Start: 01/02/24 09:18 Freq: Status: Active Protocol: CHENEXT Activity Type Activity Date Activity User E-sign Co-sign Detail Recorded Client Recorded Date Recorded By Document 01/02/24 09:18 RB Desktop 01/02/24 09:21 RB Document 01/09/24 09:16 RB [id number] 01/09/24 09:17 RB 01/02/24 01/09/24 09:18 09:16 - Today's Visit Information Type of service Follow-up Visit Follow-up Visit (Physician/BROADCAST OPERATIONS MANAGER (Physician/BROADCAST OPERATIONS MANAGER ) ) Arrival Mode Ambulatory Ambulatory Transfer Assistance None None Patient Identification Verified (Name & Yes Yes ) Patient Requires Transmission-Based No No Precautions Height and Weight Body Mass Index (BMI) 31.7 31.7 BMI Classification Obese Obese Vital Signs Temperature (97.8 F-99.1 F) 97.2 F L 97.4 F L Temperature Source Temporal Temporal Pulse Rate (60-100) 68 69 Pulse Location Monitor Monitor Respiratory Rate (12-18) 18 18 Respiratory rate source Observation Observation Blood Pressure (90/60-120/80) 142/77 H 145/67 H Blood Pressure Mean (mm Hg) 98 93 Source Monitor Monitor Position Semi-Fowlers Semi-Fowlers Blood Pressure Location Left Arm Left Arm History Since Last Visit- (Skip if this is Patient's initial visit) Have you changed medications since your No No last visit? Any new allergies or adverse reactions No No Had a fall/change in ADL's that may No No increase risk of falls Signs or symptoms of abuse and/or No No neglect since last visit Have you been in the hospital since your No No last visit? Has dressing in place as prescribed Yes Yes Has compression in place as prescribed Yes Yes Has offloadiing in place as prescribed No No Experienced any changes in pain level or No No management Pain Scale: 0-10 Numeric Is Patient Pain Free? Yes Yes - Nurse 1 - General Ulcer Measurement Start: 01/02/24 09:18 Freq: Status: Active Protocol: Activity Type Activity Date Activity User E-sign Co-sign Detail Recorded Client Recorded Date Recorded By Document 01/02/24 09:18 RB Desktop 01/02/24 09:21 RB Document 01/09/24 09:16 RB [id number] 01/09/24 09:17 RB 01/02/24 01/09/24 09:18 09:16 Wound Center Nurse 1 1. LLE -Combined with other wound No No -Current Size (cm) - Length 4 4.2 -Current Size (cm) - Width 2.4 2.4 -Current Size (cm) - Depth 0.1 0.1 -Total Square Cm 9.6 10.08 -Tunneling No No -Undermining/Tunneling No No -Circular Undermining No No -Exudate Amt Medium Medium -Exudate Type Serosanguineous Serosanguineous -Wound Margin Distinct, Distinct, Outline Outline Attached Attached -Granulation Amt Medium (34-66%) Medium (34-66%) -Granulation Quality [place] -Slough/Fibrin Yes Yes -Necrosis Amt Medium (34-66%) Medium (34-66%) -Necrotic Tissue Type Adherent Slough Adherent Slough -Structure Exposed N/A N/A -Texture (Astrid-wound Skin Appearance) Assessed Assessed -Moisture (Astrid-wound Skin Appearance) Assessed Assessed -Color (Astrid-wound Skin Appearance) Assessed Assessed -Temperature (Astrid-wound Skin No Abnormality No Abnormality Appearance) (Pt Warm) (Pt Warm) -Tenderness on Palpation (Astrid-wound No No Skin Appearance) -Ulcer Cleansing Wound Cleanser Wound Cleanser -Foul Odor after Cleansing No No -Anesthetic Used 5% Lidocaine 5% Lidocaine Gel Gel Lower Limb Edema Present Yes Yes Left Calf (cm) 40.5 40.5 Left Ankle (cm) 23.5 23 - Nurse 2 - General Ulcer CM Notes Start: 01/02/24 09:18 Freq: Status: Active Protocol: Activity Type Activity Date Activity User E-sign Co-sign Detail Recorded Client Recorded Date Recorded By Document 01/02/24 09:36 JF Laptop 01/02/24 09:44 JF Document 01/09/24 09:22 [email or web address] [id number] 01/09/24 09:25 DS 01/02/24 01/09/24 09:36 09:22 Wound Center Nurse 2 1. LLE -Time 09:37 09:22 -Correct Patient Yes Yes -Correct Side, Site, Position Yes Yes -Correct Procedure Yes Yes -Procedure Performed Yes Yes -Type of Procedure Debridement Debridement -Clinical Debridement Subcutaneous Subcutaneous -Tissue Removed Subcutaneous Subcutaneous -Post Debridement (cm) - Length 3.8 3.9 -Post Debridement (cm) - Width 2.2 2.2 -Post Debridement (cm) - Depth 0.2 0.1 -Total Square (Post) (cm) 8.36 8.58 -Area of Debridement (cm) - Length 3.8 3.9 -Area of Debridement (cm) - Width 2.2 2.2 -Total Square (Area) (cm) 8.36 8.58 -Tunneling No No -Undermining/Tunneling No No -Circular Undermining No No -Wound/Ulcer Outcome Not Healed Not Healed -Ulcer Cleansing Rinsed/ Rinsed/ Irrigated with Irrigated with Saline Saline -Foul Odor after Cleansing No -Bioengineered Tissue No -Bleeding Controlled with Pressure Pressure -Treatment Response Procedure Procedure Tolerated Well Tolerated Well -Offloading No -Debridement - Subq, 1st 20sq cm Yes Yes Pain Scale: 0-10 Numeric Is Patient Pain Free? Yes Yes - Nurse 3 - General Ulcer D/C NN Start: 01/02/24 09:18 Freq: Status: Active Protocol: Activity Type Activity Date Activity User E-sign Co-sign Detail Recorded Client Recorded Date Recorded By Document 01/02/24 09:54 RB Desktop 01/02/24 09:55 RB 01/02/24 09:54 Wound Care Center Nurse 3 1. LLE -Ulcer Cleansing Rinsed/ Irrigated with Saline -Primary Dressing Applied Mepilex Border, Promogran Aurea Matter -Mepilex Border 1 -Promogran Aurea Matter 1 Left -Tubular Bandage Double Layer -Size of Tubigrip Used Size E -Size E ($) 2 Treatment Response Procedure Tolerated Well Pain Scale: 0-10 Numeric Is Patient Pain Free? Yes - Visit Discharge Discharge Condition Stable Ambulatory Status Ambulatory Transportation Private Auto Medication Reconcilliation completed & No provided to patient/care provider Clinical Summary of Care Provided Yes Assessment/Plan Assessment/Plan (1) Venous insufficiency (chronic) (peripheral): CODE(S): I87.2 - Venous insufficiency (chronic) (peripheral) PLAN: Exam performed Venous studies demonstrate incompetency and superficial thrombophlebitis to great saphenous vein on left will plan for warm compresses vascular surgery referral placed Neurovascular status intact, will consider arterial studies if there are any delays in healing Wound decreased in size. No infection. Today left lower extremity wound was excisionally debrided down to including level of subcutaneous tissue of all nonviable tissue using 3 mm dermal curette. Topical anesthesia was used. Pre and postdebridement measurements documented nursing notes. Patient tolerated procedure well. Topical anesthesia used. Hemostasis obtained with light compression. Wound was flushed with copious amounts normal sterile saline, swab culture taken No additional antibiotics needed at this time Patient will start performing self dressing changes consisting of Aurea DSD and Tubigrip for edema management on a daily basis. Significant wound improvement noted today. Patient to follow-up in 1 week (2) Non-pressure chronic ulcer of left ankle with fat layer exposed: CODE(S): L97.322 - Non-pressure chronic ulcer of left ankle with fat layer exposed
[2024-01-23 09:23] VITALS: BP 133/69; PULSE 67; RESP 18; TEMP 36.5; BMI 31.7
--- NOTE | 2024-01-23 09:41 | PN.PCM_ITS ---
History of Present Illness Date of Service: 01/23/24 History of Wound: 72-year-old male has had a wound since May 2023. Patient was chopping firewood and had a few piece of wood fall onto his left leg. Patient suffered a laceration was seen in the emergency department at that time which they flushed and cleaned the wound and closed it primarily after updating his tetanus status. Patient subsequently had his sutures removed and developed a full-thickness ulceration to his left medial leg. Patient had been performing self-care with daily dressing changes and noticed no healing, therefore, he presents today. Patient has no obvious medical problems and is not currently on any long-term medications. Patient does have bilateral lower extremity swelling. 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 Patient notes some pain to the wound site. Patient has no other complaints. Objective Data Objective Data Vital Signs: Vital Signs Temp Pulse Resp BP O2 Del Method 97.7 F L 67 18 133/69 H Room Air 01/23/24 09:23 01/23/24 09:23 01/23/24 09:23 01/23/24 09:23 01/23/24 09:23 Oxygen Delivery Method Room Air Weight: 106.141 kg Body Mass Index (BMI) 31.7 Physical Exam Narrative Patient has palpable 2 out of 4 DP PT pulses to right lower extremity. Left lower extremity PT is palpable 2 out of 4. Dorsalis pedis is biphasic On Doppler examination. Patient has +1 pitting edema to bilateral lower extremity perimalleolar region with positive hemosiderin deposits and superficial varicosities. Patient has intact light touch protective sensation as well as deep tendon reflexes Achilles. No obvious clonus. Full-thickness wound noted to the medial left ankle along the course of the great saphenous vein with a stable granular base. Wound decreased in size. No overt signs of infection such as erythema malodor or purulent drainage warmth. There is some pain to the wound and periwound area. Musculoskeletal muscular strength full to bilateral lower extremity compartments. No wounds forming deformities noted. No sign DVT. Const alert and oriented x3 Debridement Note Debridement Note Post-Debridement Measurements and Additional Note: Post-Debridement Measurements/Treatment KIRSTY - Nurse 1 - General Ulcer Assessment Start: 01/02/24 09:18 Freq: Status: Active Protocol: LOWEXT Activity Type Activity Date Activity User E-sign Co-sign Detail Recorded Client Recorded Date Recorded By Document 01/02/24 09:18 RB Desktop 01/02/24 09:21 RB Document 01/09/24 09:16 RB [id number] 01/09/24 09:17 RB Document 01/23/24 09:23 KW wound center 01/23/24 09:28 KW 01/02/24 01/09/24 01/23/24 09:18 09:16 09:23 - Today's Visit Information Type of service Follow-up Visit Follow-up Visit Follow-up Visit (Physician/CORPORATE SECURITY MANAGER (Physician/CORPORATE SECURITY MANAGER (Physician/CORPORATE SECURITY MANAGER ) ) ) Arrival Mode Ambulatory Ambulatory Ambulatory Transfer Assistance None None Patient Identification Verified (Name & Yes Yes Yes ) Patient Requires Transmission-Based No No Precautions Height and Weight Body Mass Index (BMI) 31.7 31.7 31.7 BMI Classification Obese Obese Obese Vital Signs Temperature (97.8 F-99.1 F) 97.2 F L 97.4 F L 97.7 F L Temperature Source Temporal Temporal Temporal Pulse Rate (60-100) 68 69 67 Pulse Location Monitor Monitor Monitor Respiratory Rate (12-18) 18 18 18 Respiratory rate source Observation Observation Observation Oxygen Delivery Method Room Air Blood Pressure (90/60-120/80) 142/77 H 145/67 H 133/69 H Blood Pressure Mean (mm Hg) 98 93 90 Source Monitor Monitor Monitor Position Semi-Fowlers Semi-Fowlers Semi-Fowlers Blood Pressure Location Left Arm Left Arm Left Arm History Since Last Visit- (Skip if this is Patient's initial visit) Have you changed medications since your No No No last visit? Any new allergies or adverse reactions No No No Had a fall/change in ADL's that may No No No increase risk of falls Signs or symptoms of abuse and/or No No No neglect since last visit Have you been in the hospital since your No No No last visit? Has dressing in place as prescribed Yes Yes Yes Has compression in place as prescribed Yes Yes N/A Has offloadiing in place as prescribed No No N/A Experienced any changes in pain level or No No No management Left Footwear Regular Shoe Right Footwear Regular Shoe Pain Scale: 0-10 Numeric Is Patient Pain Free? Yes Yes Yes - Nurse 1 - General Ulcer Measurement Start: 01/02/24 09:18 Freq: Status: Active Protocol: Activity Type Activity Date Activity User E-sign Co-sign Detail Recorded Client Recorded Date Recorded By Document 01/02/24 09:18 RB Desktop 01/02/24 09:21 RB Document 01/09/24 09:16 RB [id number] 01/09/24 09:17 RB Document 01/23/24 09:23 wound center 01/23/24 09:28 KW 01/02/24 01/09/24 01/23/24 09:18 09:16 09:23 Wound Center Nurse 1 1. LLE -Combined with other wound No No -Current Size (cm) - Length 4 4.2 3.7 -Current Size (cm) - Width 2.4 2.4 2 -Current Size (cm) - Depth 0.1 0.1 0 -Total Square Cm 9.6 10.08 7.4 -Epithelialization Small 1-33% -Tunneling No No -Undermining/Tunneling No No -Circular Undermining No No -Exudate Amt Medium Medium Small -Exudate Type Serosanguineous Serosanguineous Serosanguineous -Wound Margin Distinct, Distinct, Distinct, Outline Outline Outline Attached Attached Attached -Granulation Amt Medium (34-66%) Medium (34-66%) Large (67-100%) -Granulation Quality [place] Hyper- granulation,Red -Slough/Fibrin Yes Yes -Necrosis Amt Medium (34-66%) Medium (34-66%) -Necrotic Tissue Type Adherent Slough Adherent Slough -Structure Exposed N/A N/A -Texture (Astrid-wound Skin Appearance) Assessed Assessed Assessed, Scarring -Moisture (Astrid-wound Skin Appearance) Assessed Assessed Assessed -Color (Astrid-wound Skin Appearance) Assessed Assessed Assessed, Erythema -Temperature (Astrid-wound Skin No Abnormality No Abnormality No Abnormality Appearance) (Pt Warm) (Pt Warm) (Pt Warm) -Tenderness on Palpation (Astrid-wound No No No Skin Appearance) -Ulcer Cleansing Wound Cleanser Wound Cleanser Rinsed/ Irrigated with Saline -Foul Odor after Cleansing No No No -Anesthetic Used 5% Lidocaine 5% Lidocaine 5% Lidocaine Gel Gel Gel Lower Limb Edema Present Yes Yes Left Calf (cm) 40.5 40.5 39.5 Left Ankle (cm) 23.5 23 23 WC - Nurse 2 - General Ulcer CM Notes Start: 01/02/24 09:18 Freq: Status: Active Protocol: Activity Type Activity Date Activity User E-sign Co-sign Detail Recorded Client Recorded Date Recorded By Document 01/02/24 09:36 JF Laptop 01/02/24 09:44 JF Document 01/09/24 09:22 DS [id number] 01/09/24 09:25 DS Document 01/23/24 09:34 JF [id number] 01/23/24 09:35 JF 01/02/24 01/09/24 01/23/24 09:36 09:22 09:34 Wound Center Nurse 2 1. LLE -Time 09:37 09:22 09:34 -Correct Patient Yes Yes Yes -Correct Side, Site, Position Yes Yes Yes -Correct Procedure Yes Yes Yes -Procedure Performed Yes Yes Yes -Type of Procedure Debridement Debridement Debridement -Clinical Debridement Subcutaneous Subcutaneous Subcutaneous -Tissue Removed Subcutaneous Subcutaneous Subcutaneous -Post Debridement (cm) - Length 3.8 3.9 3.4 -Post Debridement (cm) - Width 2.2 2.2 2.0 -Post Debridement (cm) - Depth 0.2 0.1 0.1 -Total Square (Post) (cm) 8.36 8.58 6.80 -Area of Debridement (cm) - Length 3.8 3.9 3.4 -Area of Debridement (cm) - Width 2.2 2.2 2.0 -Total Square (Area) (cm) 8.36 8.58 6.80 -Tunneling No No No -Undermining/Tunneling No No No -Circular Undermining No No No -Wound/Ulcer Outcome Not Healed Not Healed Not Healed -Ulcer Cleansing Rinsed/ Rinsed/ Rinsed/ Irrigated with Irrigated with Irrigated with Saline Saline Saline -Foul Odor after Cleansing No Yes, Due to Product Use -Bioengineered Tissue No No -Bleeding Controlled with Pressure Pressure Pressure -Treatment Response Procedure Procedure Procedure Tolerated Well Tolerated Well Tolerated Well -Offloading No No -Debridement - Subq, 1st 20sq cm Yes Yes Yes Pain Scale: 0-10 Numeric Is Patient Pain Free? Yes Yes Yes WC - Nurse 3 - General Ulcer D/C NN Start: 01/02/24 09:18 Freq: Status: Active Protocol: Activity Type Activity Date Activity User E-sign Co-sign Detail Recorded Client Recorded Date Recorded By Document 01/02/24 09:54 RB Desktop 01/02/24 09:55 RB Document 01/09/24 09:26 DS [id number] 01/09/24 09:29 DS Document 01/23/24 09:39 JF [id number] 01/23/24 09:39 JF 01/02/24 01/09/24 01/23/24 09:54 09:26 09:39 Wound Care Center Nurse 3 1. LLE -Ulcer Cleansing Rinsed/ Rinsed/ Rinsed/ Irrigated with Irrigated with Irrigated with Saline Saline Saline -Foul Odor after Cleansing No -Primary Dressing Applied Mepilex Border, Promogran [place] Promogran Aurea Matter Aurea Matter -Primary Dressing Covered/Secured with Dry Gauze -Mepilex Border 1 -Promogran Aurea Matter 1 1 -[place]cel 1 Left -Lotion applied to leg before No compression wrap -Tubular Bandage Double Layer Double Layer Double Layer -Size of Tubigrip Used Size E Size E Size E -Size E ($) 2 2 2 Treatment Response Procedure Tolerated Well Pain Scale: 0-10 Numeric Is Patient Pain Free? Yes Yes Yes WC - Visit Discharge Discharge Condition Stable Stable Stable Ambulatory Status Ambulatory Ambulatory Ambulatory Transportation Private Auto Private Auto Private Auto Medication Reconcilliation completed & No Yes Yes provided to patient/care provider Clinical Summary of Care Provided Yes Yes Yes Assessment/Plan Assessment/Plan (1) Venous insufficiency (chronic) (peripheral): CODE(S): I87.2 - Venous insufficiency (chronic) (peripheral) PLAN: Exam performed Venous studies demonstrate incompetency and superficial thrombophlebitis to great saphenous vein on left will plan for warm compresses vascular surgery referral placed Neurovascular status intact, will consider arterial studies if there are any delays in healing Wound decreased in size. No infection. Today left lower extremity wound was excisionally debrided down to including level of subcutaneous tissue of all nonviable tissue using 3 mm dermal curette. Topical anesthesia was used. Pre and postdebridement measurements documented nursing notes. Patient tolerated procedure well. Topical anesthesia used. Hemostasis obtained with light compression. Wound was flushed with copious amounts normal sterile saline, swab culture taken No additional antibiotics needed at this time new onset stasis dermatitis noted - discontinued occlusive bordered foam, proceed with wound cleasning, application of triamcinolone ointment to periwound area, gauze, paper tape Rx for triamcinolone ointment Significant wound improvement noted today. Patient to follow-up in 1 week (2) Non-pressure chronic ulcer of left ankle with fat layer exposed: CODE(S): L97.322 - Non-pressure chronic ulcer of left ankle with fat layer exposed (3) Stasis dermatitis of left lower extremity due to peripheral venous hypertension: CODE(S): I87.322 - Chronic venous hypertension (idiopathic) with inflammat ion of left lower extremity
== END 2024-01-26 23:59 | disposition home or self-care (01) ==
LOC: WC 09:15
PROVIDERS: PCP Family Medicine; Referring Provider Family Medicine; Visit Provider Podiatrist
DX: I87.322 Chronic venous hypertension (idiopathic) with inflammation of left lower extremity (principal); L97.322 Non-pressure chronic ulcer of left ankle with fat layer exposed; S81.812S Laceration without foreign body, left lower leg, sequela; W20.8XXS Other cause of strike by thrown, projected or falling object, sequela; I80.02 Phlebitis and thrombophlebitis of superficial vessels of left lower extremity; R60.0 Localized edema; I87.2 Venous insufficiency (chronic) (peripheral); Z79.899 Other long term (current) drug therapy
CPT/HCPCS: 11042; 93923; 93970

== ENCOUNTER 2024-02-20 09:15 | Outpatient (RCR) | payer MEDICARE, OTHER, SELFPAY ==
[2024-01-27 00:41] VITALS: BP 119/68; PULSE 72; RESP 18; TEMP 36.5; BMI 31.7
[2024-01-30 09:14] VITALS: BP 163/73; PULSE 60; RESP 18; TEMP 36.8; BMI 31.7
--- NOTE | 2024-01-30 10:06 | PN.PCM_ITS ---
History of Present Illness Date of Service: 01/30/24 History of Wound: 72-year-old male has had a wound since May 2023. Patient was chopping firewood and had a few piece of wood fall onto his left leg. Patient suffered a laceration was seen in the emergency department at that time which they flushed and cleaned the wound and closed it primarily after updating his tetanus status. Patient subsequently had his sutures removed and developed a full-thickness ulceration to his left medial leg. Patient had been performing self-care with daily dressing changes and noticed no healing, therefore, he presents today. Patient has no obvious medical problems and is not currently on any long-term medications. Patient does have bilateral lower extremity swelling. 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 Patient notes some pain to the wound site. Patient has no other complaints. Objective Data Objective Data Vital Signs: Vital Signs Temp Pulse Resp BP O2 Del Method 98.2 F 60 18 163/73 H Room Air 01/30/24 09:14 01/30/24 09:14 01/30/24 09:14 01/30/24 09:14 01/30/24 09:14 Oxygen Delivery Method Room Air Weight: 106.141 kg Body Mass Index (BMI) 31.7 Debridement Note Debridement Note Post-Debridement Measurements and Additional Note: Post-Debridement Measurements/Treatment - Nurse 1 - General Ulcer Assessment Start: 01/30/24 09:14 Freq: Status: Active Protocol: WC.LOWEXT Activity Type Activity Date Activity User E-sign Co-sign Detail Recorded Client Recorded Date Recorded By Document 01/30/24 09:14 wound center 01/30/24 09:22 01/30/24 09:14 - Today's Visit Information Type of service Follow-up Visit (Physician/PHYSICIAN PR[facility]ICINE ) Arrival Mode Ambulatory Patient Identification Verified (Name & Yes ) Height and Weight Body Mass Index (BMI) 31.7 BMI Classification Obese Vital Signs Temperature (97.8 F-99.1 F) 98.2 F Temperature Source Temporal Pulse Rate (60-100) 60 Pulse Location Monitor Respiratory Rate (12-18) 18 Respiratory rate source Observation Oxygen Delivery Method Room Air Blood Pressure (90/60-120/80) 163/73 H Blood Pressure Mean (mm Hg) 103 Source Monitor Position Sitting Blood Pressure Location Left Arm History Since Last Visit- (Skip if this is Patient's initial visit) Have you changed medications since your No last visit? Any new allergies or adverse reactions No Had a fall/change in ADL's that may No increase risk of falls Signs or symptoms of abuse and/or No neglect since last visit Have you been in the hospital since your No last visit? Has dressing in place as prescribed Yes Has compression in place as prescribed N/A Has offloadiing in place as prescribed N/A Experienced any changes in pain level or No management Left Footwear Regular Shoe Right Footwear Regular Shoe Pain Scale: 0-10 Numeric Is Patient Pain Free? Yes - Nurse 1 - General Ulcer Measurement Start: 01/30/24 09:14 Freq: Status: Active Protocol: Activity Type Activity Date Activity User E-sign Co-sign Detail Recorded Client Recorded Date Recorded By Document 01/30/24 09:14 wound center 01/30/24 09:22 01/30/24 09:14 Wound Center Nurse 1 1. LLE -Current Size (cm) - Length 3 -Current Size (cm) - Width 1.7 -Current Size (cm) - Depth 0.1 -Total Square Cm 5.1 -Epithelialization Medium 34-66% -Exudate Amt Small -Exudate Type Serosanguineous -Wound Margin Distinct, Outline Attached -Granulation Amt Large (67-100%) -Granulation Quality Red -Necrosis Amt Small (1-33%) -Necrotic Tissue Type Adherent Slough -Texture (Astrid-wound Skin Appearance) Assessed -Moisture (Astrid-wound Skin Appearance) Assessed -Color (Astrid-wound Skin Appearance) Assessed -Temperature (Astrid-wound Skin No Abnormality Appearance) (Pt Warm) -Tenderness on Palpation (Astrid-wound No Skin Appearance) -Ulcer Cleansing Rinsed/ Irrigated with Saline -Foul Odor after Cleansing No -Anesthetic Used 5% Lidocaine Gel WC - Nurse 2 - General Ulcer CM Notes Start: 01/30/24 09:14 Freq: Status: Active Protocol: Activity Type Activity Date Activity User E-sign Co-sign Detail Recorded Client Recorded Date Recorded By Document 01/30/24 09:48 [id number] [id number] 01/30/24 09:49 01/30/24 09:48 Wound Center Nurse 2 -Time 09:49 -Correct Patient Yes -Correct Side, Site, Position Yes -Correct Procedure Yes -Procedure Performed Yes -Type of Procedure Debridement -Clinical Debridement Subcutaneous -Tissue Removed Subcutaneous -Post Debridement (cm) - Length 2.8 -Post Debridement (cm) - Width 1.9 -Post Debridement (cm) - Depth 0.1 -Total Square (Post) (cm) 5.32 -Area of Debridement (cm) - Length 2.8 -Area of Debridement (cm) - Width 1.9 -Total Square (Area) (cm) 5.32 -Tunneling No -Undermining/Tunneling No -Circular Undermining No -Wound/Ulcer Outcome Not Healed -Ulcer Cleansing Rinsed/ Irrigated with Saline -Foul Odor after Cleansing No -Bioengineered Tissue No -Bleeding Controlled with Pressure -Treatment Response Procedure Tolerated Well -Offloading No -Debridement - Subq, 1st 20sq cm Yes Pain Scale: 0-10 Numeric Is Patient Pain Free? Yes Assessment/Plan Assessment/Plan (1) Venous insufficiency (chronic) (peripheral): CODE(S): I87.2 - Venous insufficiency (chronic) (peripheral) PLAN: Exam performed Venous studies demonstrate incompetency and superficial thrombophlebitis to great saphenous vein on left - vascular following will continue warm compresses Wound decreased in size. No infection. Today left lower extremity wound was excisionally debrided down to including level of subcutaneous tissue of all nonviable tissue using 3 mm dermal curette. Topical anesthesia was used. Pre and postdebridement measurements documented nursing notes. Patient tolerated procedure well. Topical anesthesia used. Hemostasis obtained with light compression. Wound was flushed with copious amounts normal sterile saline, swab culture taken No additional antibiotics needed at this time new onset stasis dermatitis noted - discontinued occlusive bordered foam, proceed with wound cleansing, application of triamcinolone ointment to periwound area, gauze, paper tape Rx for triamcinolone ointment Significant wound improvement noted today. Patient to follow-up in 1 week (2) Non-pressure chronic ulcer of left ankle with fat layer exposed: CODE(S): L97.322 - Non-pressure chronic ulcer of left ankle with fat layer exposed (3) Stasis dermatitis of left lower extremity due to peripheral venous hypertension: CODE(S): I87.322 - Chronic venous hypertension (idiopathic) with inflammation of left lower extremity
[2024-02-06 09:24] VITALS: BP 157/79; PULSE 65; RESP 18; TEMP 35.9; BMI 31.7
--- NOTE | 2024-02-06 10:07 | PCM.WC.PN ---
History of Present Illness Date of Service: 02/06/24 History of Wound: 72-year-old male has had a wound since May 2023. Patient was chopping firewood and had a few piece of wood fall onto his left leg. Patient suffered a laceration was seen in the emergency department at that time which they flushed and cleaned the wound and closed it primarily after updating his tetanus status. Patient subsequently had his sutures removed and developed a full-thickness ulceration to his left medial leg. Patient had been performing self-care with daily dressing changes and noticed no healing, therefore, he presents today. Patient has no obvious medical problems and is not currently on any long-term medications. Patient does have bilateral lower extremity swelling. 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 Patient notes some pain to the wound site. Patient has no other complaints. Objective Data Objective Data Vital Signs: Vital Signs Temp Pulse Resp BP O2 Del Method 96.6 F L 65 18 157/79 H Room Air 02/06/24 09:24 02/06/24 09:24 02/06/24 09:24 02/06/24 09:24 02/06/24 09:24 Oxygen Delivery Method Room Air Weight: 106.141 kg Body Mass Index (BMI) 31.7 Debridement Note Debridement Note Post-Debridement Measurements and Additional Note: Post-Debridement Measurements/Treatment - Nurse 1 - General Ulcer Assessment Start: 01/30/24 09:14 Freq: Status: Active Protocol: WC.LOWEXT Activity Type Activity Date Activity User E-sign Co-sign Detail Recorded Client Recorded Date Recorded By Document 01/30/24 09:14 KW wound center 01/30/24 09:22 KW Document 02/06/24 09:24 DS 1 02/06/24 09:26 DS 01/30/24 02/06/24 09:14 09:24 - Today's Visit Information Type of service Follow-up Visit Follow-up Visit (Physician/CHEMISTRY TUTOR (Physician/CHEMISTRY TUTOR ) ) Arrival Mode Ambulatory Ambulatory Transfer Assistance None Patient Identification Verified (Name & Yes Yes ) Safety Precautions NA Height and Weight Body Mass Index (BMI) 31.7 31.7 BMI Classification Obese Obese Vital Signs Temperature (97.8 F-99.1 F) 98.2 F 96.6 F L Temperature Source Temporal Temporal Pulse Rate (60-100) 60 65 Pulse Location Monitor Monitor Respiratory Rate (12-18) 18 18 Respiratory rate source Observation Observation Oxygen Delivery Method Room Air Room Air Blood Pressure (90/60-120/80) 163/73 H 157/79 H Blood Pressure Mean (mm Hg) 103 105 Source Monitor Monitor Position Sitting Sitting Blood Pressure Location Left Arm Left Arm History Since Last Visit- (Skip if this is Patient's initial visit) Have you changed medications since your No No last visit? Any new allergies or adverse reactions No No Had a fall/change in ADL's that may No No increase risk of falls Signs or symptoms of abuse and/or No No neglect since last visit Have you been in the hospital since your No No last visit? Has dressing in place as prescribed Yes No Has compression in place as prescribed N/A No Has offloadiing in place as prescribed N/A No Experienced any changes in pain level or No No management Left Footwear Regular Shoe Regular Shoe Right Footwear Regular Shoe Regular Shoe Pain Scale: 0-10 Numeric Is Patient Pain Free? Yes Yes WC - Nurse 1 - General Ulcer Measurement Start: 01/30/24 09:14 Freq: Status: Active Protocol: Activity Type Activity Date Activity User E-sign Co-sign Detail Recorded Client Recorded Date Recorded By Document 01/30/24 09:14 KW wound center 01/30/24 09:22 KW Document 02/06/24 09:26 DS 1 02/06/24 09:30 DS 01/30/24 02/06/24 09:14 09:26 Wound Center Nurse 1 1. LLE -Combined with other wound No -Current Size (cm) - Length 3 3.0 -Current Size (cm) - Width 1.7 1.8 -Current Size (cm) - Depth 0.1 0.1 -Total Square Cm 5.1 5.40 -Photo Taken No -Epithelialization Medium 34-66% Large 67-100% -Exudate Amt Small Small -Exudate Type Serosanguineous Sanguineous -Wound Margin Distinct, Distinct, Outline Outline Attached Attached -Granulation Amt Large (67-100%) Large (67-100%) -Granulation Quality [place] -Slough/Fibrin No -Necrosis Amt Small (1-33%) -Necrotic Tissue Type Adherent Slough -Texture (Astrid-wound Skin Appearance) Assessed Assessed -Moisture (Astrid-wound Skin Appearance) Assessed Assessed -Color (Astrid-wound Skin Appearance) Assessed Assessed -Temperature (Astrid-wound Skin No Abnormality Appearance) (Pt Warm) -Tenderness on Palpation (Astrid-wound No Yes Skin Appearance) -Ulcer Cleansing Rinsed/ Rinsed/ Irrigated with Irrigated with Saline Saline -Foul Odor after Cleansing No -Anesthetic Used 5% Lidocaine 5% Lidocaine Gel Gel KIRSTY - Nurse 2 - General Ulcer CM Notes Start: 01/30/24 09:14 Freq: Status: Active Protocol: Activity Type Activity Date Activity User E-sign Co-sign Detail Recorded Client Recorded Date Recorded By Document 01/30/24 09:48 [id number] 01/30/24 09:49 Document 02/06/24 09:41 [id number] [id number] 02/06/24 09:44 01/30/24 02/06/24 09:48 09:41 Wound Center Nurse 2 1. LLE -Time 09:49 09:42 -Correct Patient Yes Yes -Correct Side, Site, Position Yes Yes -Correct Procedure Yes Yes -Procedure Performed Yes Yes -Type of Procedure Debridement Debridement -Clinical Debridement Subcutaneous Subcutaneous -Tissue Removed Subcutaneous Subcutaneous -Post Debridement (cm) - Length 2.8 2.7 -Post Debridement (cm) - Width 1.9 1.8 -Post Debridement (cm) - Depth 0.1 0.1 -Total Square (Post) (cm) 5.32 4.86 -Area of Debridement (cm) - Length 2.8 2.7 -Area of Debridement (cm) - Width 1.9 1.8 -Total Square (Area) (cm) 5.32 4.86 -Tunneling No No -Undermining/Tunneling No No -Circular Undermining No No -Wound/Ulcer Outcome Not Healed Not Healed -Ulcer Cleansing Rinsed/ Rinsed/ Irrigated with Irrigated with Saline Saline -Foul Odor after Cleansing No No -Bioengineered Tissue No No -Bleeding Controlled with Pressure Pressure -Treatment Response Procedure Procedure Tolerated Well Tolerated Well -Offloading No No -Debridement - Subq, 1st 20sq cm Yes Yes Pain Scale: 0-10 Numeric Is Patient Pain Free? Yes Yes KIRSTY - Nurse 3 - General Ulcer D/C NN Start: 01/30/24 09:14 Freq: Status: Active Protocol: Activity Type Activity Date Activity User E-sign Co-sign Detail Recorded Client Recorded Date Recorded By Document 01/30/24 10:20 RB wound center 01/30/24 10:20 RB Document 02/06/24 09:54 RB wound 02/06/24 09:55 RB 01/30/24 02/06/24 10:20 09:54 Wound Care Center Nurse 3 1. LLE -Ulcer Cleansing Wound Cleanser -Primary Dressing Applied Silvercel Silvercel -Primary Dressing Covered/Secured with Dry Gauze, Dry Gauze & Secured with Roll Gauze, Tape Secured with Tape -Silvercel 1 1 Left -Tubular Bandage Double Layer Double Layer -Size of Tubigrip Used Size E Size E -Size E ($) 2 2 Treatment Response Procedure Procedure Tolerated Well Tolerated Well Pain Scale: 0-10 Numeric Is Patient Pain Free? Yes Yes WC - Visit Discharge Discharge Condition Stable Stable Ambulatory Status Ambulatory Ambulatory Transportation Private Auto Private Auto Medication Reconcilliation completed & No No provided to patient/care provider Clinical Summary of Care Provided Yes Yes Assessment/Plan Assessment/Plan (1) Venous insufficiency (chronic) (peripheral): CODE(S): I87.2 - Venous insufficiency (chronic) (peripheral) PLAN: Exam performed Wound decreased in size. No infection. Today left lower extremity wound was excisionally debrided down to including level of subcutaneous tissue of all nonviable tissue using 3 mm dermal curette. Topical anesthesia was used. Pre and postdebridement measurements documented nursing notes. Patient tolerated procedure well. Topical anesthesia used. Hemostasis obtained with light compression. Wound was flushed with copious amounts normal sterile saline, swab culture taken No additional antibiotics needed at this time Resolved stasis dermatitis- discontinued occlusive bordered foam, proceed with wound cleansing, application of triamcinolone ointment to periwound area, gauze, paper tape Rx for triamcinolone ointment Significant wound improvement noted today. Patient to follow-up in 1 week (2) Non-pressure chronic ulcer of left ankle with fat layer exposed: CODE(S): L97.322 - Non-pressure chronic ulcer of left ankle with fat layer exposed (3) Stasis dermatitis of left lower extremity due to peripheral venous hypertension: CODE(S): I87.322 - Chronic venous hypertension (idiopathic) with inflammation of left lower extremity
[2024-02-13 09:08] VITALS: BP 150/84; PULSE 73; RESP 16; BMI 31.7
--- NOTE | 2024-02-13 09:29 | PCM.WC.PN ---
History of Present Illness Date of Service: 02/13/24 History of Wound: 72-year-old male has had a wound since May 2023. Patient was chopping firewood and had a few piece of wood fall onto his left leg. Patient suffered a laceration was seen in the emergency department at that time which they flushed and cleaned the wound and closed it primarily after updating his tetanus status. Patient subsequently had his sutures removed and developed a full-thickness ulceration to his left medial leg. Patient had been performing self-care with daily dressing changes and noticed no healing, therefore, he presents today. Patient has no obvious medical problems and is not currently on any long-term medications. Patient does have bilateral lower extremity swelling. 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 Patient notes some pain to the wound site. Patient has no other complaints. Objective Data Objective Data Vital Signs: Vital Signs Temp Pulse Resp BP O2 Del Method 96.6 F L 73 16 150/84 H Room Air 02/06/24 09:24 02/13/24 09:08 02/13/24 09:08 02/13/24 09:08 02/06/24 09:24 Oxygen Delivery Method Room Air Weight: 106.141 kg Body Mass Index (BMI) 31.7 Debridement Note Debridement Note Post-Debridement Measurements and Additional Note: Post-Debridement Measurements/Treatment - Nurse 1 - General Ulcer Assessment Start: 01/30/24 09:14 Freq: Status: Active Protocol: KIRSTY.LOWCHERRYT Activity Type Activity Date Activity User E-sign Co-sign Detail Recorded Client Recorded Date Recorded By Document 01/30/24 09:14 KW wound center 01/30/24 09:22 KW Document 02/06/24 09:24 DS 1 02/06/24 09:26 DS Document 02/13/24 09:08 [id number] [id number] 02/13/24 09:09 JF 01/30/24 02/06/24 02/13/24 09:14 09:24 09:08 - Today's Visit Information Type of service Follow-up Visit Follow-up Visit Follow-up Visit (Physician/BOILER TENDER (Physician/BOILER TENDER (Physician/BOILER TENDER ) ) ) Arrival Mode Ambulatory Ambulatory Ambulatory Transfer Assistance None Patient Identification Verified (Name & Yes Yes Yes ) Patient Requires Transmission-Based No Precautions Safety Precautions NA Height and Weight Body Mass Index (BMI) 31.7 31.7 31.7 BMI Classification Obese Obese Obese Vital Signs Temperature (97.8 F-99.1 F) 98.2 F 96.6 F L Temperature Source Temporal Temporal Pulse Rate (60-100) 60 65 73 Pulse Location Monitor Monitor Monitor Respiratory Rate (12-18) 18 18 16 Respiratory rate source Observation Observation Observation Oxygen Delivery Method Room Air Room Air Blood Pressure (90/60-120/80) 163/73 H 157/79 H 150/84 H Blood Pressure Mean (mm Hg) 103 105 106 Source Monitor Monitor Monitor Position Sitting Sitting Semi-Fowlers Blood Pressure Location Left Arm Left Arm Left Arm History Since Last Visit- (Skip if this is Patient's initial visit) Have you changed medications since your No No No last visit? Any new allergies or adverse reactions No No No Had a fall/change in ADL's that may No No No increase risk of falls Signs or symptoms of abuse and/or No No No neglect since last visit Have you been in the hospital since your No No No last visit? Has dressing in place as prescribed Yes No Yes Has compression in place as prescribed N/A No Yes Has offloadiing in place as prescribed N/A No N/A Experienced any changes in pain level or No No No management Left Footwear Regular Shoe Regular Shoe Regular Shoe Right Footwear Regular Shoe Regular Shoe Regular Shoe Pain Scale: 0-10 Numeric Is Patient Pain Free? Yes Yes Yes WC - Nurse 1 - General Ulcer Measurement Start: 01/30/24 09:14 Freq: Status: Active Protocol: Activity Type Activity Date Activity User E-sign Co-sign Detail Recorded Client Recorded Date Recorded By Document 01/30/24 09:14 KW wound center 01/30/24 09:22 KW Document 02/06/24 09:26 DS 1 02/06/24 09:30 DS Document 02/13/24 09:08 [id number] 02/13/24 09:09 JF 01/30/24 02/06/24 02/13/24 09:14 09:26 09:08 Wound Center Nurse 1 1. LLE -Combined with other wound No No -Current Size (cm) - Length 3 3.0 2.3 -Current Size (cm) - Width 1.7 1.8 1.0 -Current Size (cm) - Depth 0.1 0.1 0.1 -Total Square Cm 5.1 5.40 2.30 -Photo Taken No No -Epithelialization Medium 34-66% Large 67-100% Medium 34-66% -Tunneling No -Undermining/Tunneling No -Circular Undermining No -Exudate Amt Small Small Small -Exudate Type Serosanguineous Sanguineous Serosanguineous -Wound Margin Distinct, Distinct, Flat & Intact Outline Outline Attached Attached -Granulation Amt Large (67-100%) Large (67-100%) Large (67-100%) -Granulation Quality [place] -Slough/Fibrin No Yes -Necrosis Amt Small (1-33%) Small (1-33%) -Necrotic Tissue Type Adherent Slough Adherent Slough -Structure Exposed N/A -Texture (Astrid-wound Skin Appearance) Assessed Assessed Assessed, Localized Edema ,Scarring -Moisture (Astrid-wound Skin Appearance) Assessed Assessed Assessed,Dry/ Scaly -Color (Astrid-wound Skin Appearance) Assessed Assessed Assessed -Temperature (Astrid-wound Skin No Abnormality No Abnormality Appearance) (Pt Warm) (Pt Warm) -Tenderness on Palpation (Astrid-wound No Yes No Skin Appearance) -Ulcer Cleansing Rinsed/ Rinsed/ Rinsed/ Irrigated with Irrigated with Irrigated with Saline Saline Saline -Foul Odor after Cleansing No No -Anesthetic Used 5% Lidocaine 5% Lidocaine 5% Lidocaine Gel Gel Gel Lower Limb Edema Present Yes Left Calf (cm) 40.2 Left Ankle (cm) 23.5 WC - Nurse 2 - General Ulcer CM Notes Start: 01/30/24 09:14 Freq: Status: Active Protocol: Activity Type Activity Date Activity User E-sign Co-sign Detail Recorded Client Recorded Date Recorded By Document 01/30/24 09:48 [id number] 01/30/24 09:49 Document 02/06/24 09:41 [id number] [id number] 02/06/24 09:44 01/30/24 02/06/24 09:48 09:41 Wound Center Nurse 2 1. LLE -Time 09:49 09:42 -Correct Patient Yes Yes -Correct Side, Site, Position Yes Yes -Correct Procedure Yes Yes -Procedure Performed Yes Yes -Type of Procedure Debridement Debridement -Clinical Debridement Subcutaneous Subcutaneous -Tissue Removed Subcutaneous Subcutaneous -Post Debridement (cm) - Length 2.8 2.7 -Post Debridement (cm) - Width 1.9 1.8 -Post Debridement (cm) - Depth 0.1 0.1 -Total Square (Post) (cm) 5.32 4.86 -Area of Debridement (cm) - Length 2.8 2.7 -Area of Debridement (cm) - Width 1.9 1.8 -Total Square (Area) (cm) 5.32 4.86 -Tunneling No No -Undermining/Tunneling No No -Circular Undermining No No -Wound/Ulcer Outcome Not Healed Not Healed -Ulcer Cleansing Rinsed/ Rinsed/ Irrigated with Irrigated with Saline Saline -Foul Odor after Cleansing No No -Bioengineered Tissue No No -Bleeding Controlled with Pressure Pressure -Treatment Response Procedure Procedure Tolerated Well Tolerated Well -Offloading No No -Debridement - Subq, 1st 20sq cm Yes Yes Pain Scale: 0-10 Numeric Is Patient Pain Free? Yes Yes - Nurse 3 - General Ulcer D/C NN Start: 01/30/24 09:14 Freq: Status: Active Protocol: Activity Type Activity Date Activity User E-sign Co-sign Detail Recorded Client Recorded Date Recorded By Document 01/30/24 10:20 RB wound center 01/30/24 10:20 RB Document 02/06/24 09:54 RB wound 02/06/24 09:55 RB 01/30/24 02/06/24 10:20 09:54 Wound Care Center Nurse 3 1. LLE -Ulcer Cleansing Wound Cleanser -Primary Dressing Applied Silvercel Silvercel -Primary Dressing Covered/Secured with Dry Gauze, Dry Gauze & Secured with Roll Gauze, Tape Secured with Tape -[place] 1 1 Left -Tubular Bandage Double Layer Double Layer -Size of Tubigrip Used Size E Size E -Size E ($) 2 2 Treatment Response Procedure Procedure Tolerated Well Tolerated Well Pain Scale: 0-10 Numeric Is Patient Pain Free? Yes Yes - Visit Discharge Discharge Condition Stable Stable Ambulatory Status Ambulatory Ambulatory Transportation Private Auto Private Auto Medication Reconcilliation completed & No No provided to patient/care provider Clinical Summary of Care Provided Yes Yes Assessment/Plan Assessment/Plan (1) Venous insufficiency (chronic) (peripheral): CODE(S): I87.2 - Venous insufficiency (chronic) (peripheral) PLAN: Exam performed Wound decreased in size. No infection. Today left lower extremity wound was excisionally debrided down to including level of subcutaneous tissue of all nonviable tissue using 3 mm dermal curette. Topical anesthesia was used. Pre and postdebridement measurements documented nursing notes. Patient tolerated procedure well. Topical anesthesia used. Hemostasis obtained with light compression. Wound was flushed with copious amounts normal sterile saline, swab culture taken No additional antibiotics needed at this time Resolved stasis dermatitis- discontinued occlusive bordered foam, proceed with wound cleansing, application of triamcinolone ointment to periwound area, gauze, paper tape Rx for triamcinolone ointment Significant wound improvement noted today. Patient to follow-up in 1 week (2) Non-pressure chronic ulcer of left ankle with fat layer exposed: CODE(S): L97.322 - Non-pressure chronic ulcer of left ankle with fat layer exposed (3) Stasis dermatitis of left lower extremity due to peripheral venous hypertension: CODE(S): I87.322 - Chronic venous hypertension (idiopathic) with inflammation of left lower extremity
[2024-02-20 09:24] VITALS: BP 162/95; PULSE 61; RESP 20; TEMP 36.6; BMI 31.7
--- NOTE | 2024-02-20 10:41 | PN.PCM_ITS ---
History of Present Illness Date of Service: 02/20/24 History of Wound: 72-year-old male has had a wound since May 2023. Patient was chopping firewood and had a few piece of wood fall onto his left leg. Patient suffered a laceration was seen in the emergency department at that time which they flushed and cleaned the wound and closed it primarily after updating his tetanus status. Patient subsequently had his sutures removed and developed a full-thickness ulceration to his left medial leg. Patient had been performing self-care with daily dressing changes and noticed no healing, therefore, he presents today. Patient has no obvious medical problems and is not currently on any long-term medications. Patient does have bilateral lower extremity swelling. 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 Patient notes some pain to the wound site. Patient has no other complaints. Objective Data Objective Data Vital Signs: Vital Signs Temp Pulse Resp BP O2 Del Method 98 F 61 20 H 162/95 H Room Air 02/20/24 09:24 02/20/24 09:24 02/20/24 09:24 02/20/24 09:24 02/06/24 09:24 Oxygen Delivery Method Room Air Weight: 106.141 kg Body Mass Index (BMI) 31.7 Physical Exam Narrative Patient has palpable 2 out of 4 DP PT pulses to right lower extremity. Left lower extremity PT is palpable 2 out of 4. Dorsalis pedis is biphasic On Doppler examination. Patient has +1 pitting edema to bilateral lower extremity perimalleolar region with positive hemosiderin deposits and superficial varicosities. Patient has intact light touch protective sensation as well as deep tendon reflexes Achilles. No obvious clonus. Full-thickness wound noted to the medial left ankle along the course of the great saphenous vein with a stable granular base. Wound decreased in size. No overt signs of infection such as erythema malodor or purulent drainage warmth. There is some pain to the wound and periwound area. Musculoskeletal muscular strength full to bilateral lower extremity compartments. No wounds forming deformities noted. No sign DVT. Const alert and oriented x3 Debridement Note Debridement Note Post-Debridement Measurements and Additional Note: Post-Debridement Measurements/Treatment KIRSTY - Nurse 1 - General Ulcer Assessment Start: 01/30/24 09:14 Freq: Status: Active Protocol: LOWEXT Activity Type Activity Date Activity User E-sign Co-sign Detail Recorded Client Recorded Date Recorded By Document 01/30/24 09:14 KW wound center 01/30/24 09:22 KW Document 02/06/24 09:24 DS 1 02/06/24 09:26 DS Document 02/13/24 09:08 JF [id number] 02/13/24 09:09 JF Document 02/20/24 09:24 DL [email or web address] 02/20/24 09:32 DL 01/30/24 02/06/24 02/13/24 09:14 09:24 09:08 WC - Today's Visit Information Type of service Follow-up Visit Follow-up Visit Follow-up Visit (Physician/LITIGATION PARALEGAL (Physician/LITIGATION PARALEGAL (Physician/LITIGATION PARALEGAL ) ) ) Arrival Mode Ambulatory Ambulatory Ambulatory Transfer Assistance None Patient Identification Verified (Name & Yes Yes Yes ) Patient Requires Transmission-Based No Precautions Safety Precautions NA Height and Weight Body Mass Index (BMI) 31.7 31.7 31.7 BMI Classification Obese Obese Obese Vital Signs Temperature (97.8 F-99.1 F) 98.2 F 96.6 F L Temperature Source Temporal Temporal Pulse Rate (60-100) 60 65 73 Pulse Location Monitor Monitor Monitor Respiratory Rate (12-18) 18 18 16 Respiratory rate source Observation Observation Observation Oxygen Delivery Method Room Air Room Air Blood Pressure (90/60-120/80) 163/73 H 157/79 H 150/84 H Blood Pressure Mean (mm Hg) 103 105 106 Source Monitor Monitor Monitor Position Sitting Sitting Semi-Fowlers Blood Pressure Location Left Arm Left Arm Left Arm History Since Last Visit- (Skip if this is Patient's initial visit) Have you changed medications since your No No No last visit? Any new allergies or adverse reactions No No No Had a fall/change in ADL's that may No No No increase risk of falls Signs or symptoms of abuse and/or No No No neglect since last visit Have you been in the hospital since your No No No last visit? Has dressing in place as prescribed Yes No Yes Has compression in place as prescribed N/A No Yes Has offloadiing in place as prescribed N/A No N/A Experienced any changes in pain level or No No No management Left Footwear Regular Shoe Regular Shoe Regular Shoe Right Footwear Regular Shoe Regular Shoe Regular Shoe Pain Scale: 0-10 Numeric Is Patient Pain Free? Yes Yes Yes 02/20/24 09:24 - Today's Visit Information Type of service Follow-up Visit (Physician/LITIGATION PARALEGAL ) Arrival Mode Ambulatory Transfer Assistance None Patient Identification Verified (Name & Yes ) Patient Requires Transmission-Based No Precautions Safety Precautions Height and Weight Body Mass Index (BMI) 31.7 BMI Classification Obese Vital Signs Temperature (97.8 F-99.1 F) 98 F Temperature Source Temporal Pulse Rate (60-100) 61 Pulse Location Monitor Respiratory Rate (12-18) 20 H Respiratory rate source Observation Oxygen Delivery Method Blood Pressure (90/60-120/80) 162/95 H Blood Pressure Mean (mm Hg) 117 Source Monitor Position Blood Pressure Location History Since Last Visit- (Skip if this is Patient's initial visit) Have you changed medications since your No last visit? Any new allergies or adverse reactions No Had a fall/change in ADL's that may No increase risk of falls Signs or symptoms of abuse and/or No neglect since last visit Have you been in the hospital since your No last visit? Has dressing in place as prescribed Yes Has compression in place as prescribed Yes Has offloadiing in place as prescribed N/A Experienced any changes in pain level or No management Left Footwear Right Footwear Pain Scale: 0-10 Numeric Is Patient Pain Free? Yes - Nurse 1 - General Ulcer Measurement Start: 01/30/24 09:14 Freq: Status: Active Protocol: Activity Type Activity Date Activity User E-sign Co-sign Detail Recorded Client Recorded Date Recorded By Document 01/30/24 09:14 KW wound center 01/30/24 09:22 KW Document 02/06/24 09:26 DS 1 02/06/24 09:30 DS Document 02/13/24 09:08 [id number] 02/13/24 09:09 JF Document 02/20/24 09:24 DL [id number] 02/20/24 09:32 DL 01/30/24 02/06/24 02/13/24 09:14 09:26 09:08 Wound Center Nurse 1 1. LLE -Combined with other wound No No -Current Size (cm) - Length 3 3.0 2.3 -Current Size (cm) - Width 1.7 1.8 1.0 -Current Size (cm) - Depth 0.1 0.1 0.1 -Total Square Cm 5.1 5.40 2.30 -Photo Taken No No -Epithelialization Medium 34-66% Large 67-100% Medium 34-66% -Tunneling No -Undermining/Tunneling No -Circular Undermining No -Exudate Amt Small Small Small -Exudate Type Serosanguineous Sanguineous Serosanguineous -Wound Margin Distinct, Distinct, Flat & Intact Outline Outline Attached Attached -Granulation Amt Large (67-100%) Large (67-100%) Large (67-100%) -Granulation Quality Red [place] Red -Slough/Fibrin No Yes -Necrosis Amt Small (1-33%) Small (1-33%) -Necrotic Tissue Type Adherent Slough Adherent Slough -Structure Exposed N/A -Texture (Astrid-wound Skin Appearance) Assessed Assessed Assessed, Localized Edema ,Scarring -Moisture (Astrid-wound Skin Appearance) Assessed Assessed Assessed,Dry/ Scaly -Color (Astrid-wound Skin Appearance) Assessed Assessed Assessed -Temperature (Astrid-wound Skin No Abnormality No Abnormality Appearance) (Pt Warm) (Pt Warm) -Tenderness on Palpation (Astrid-wound No Yes No Skin Appearance) -Ulcer Cleansing Rinsed/ Rinsed/ Rinsed/ Irrigated with Irrigated with Irrigated with Saline Saline Saline -Foul Odor after Cleansing No No -Anesthetic Used 5% Lidocaine 5% Lidocaine 5% Lidocaine Gel Gel Gel Lower Limb Edema Present Yes Left Calf (cm) 40.2 Left Ankle (cm) 23.5 02/20/24 09:24 Wound Center Nurse 1 1. LLE -Combined with other wound -Current Size (cm) - Length 1.7 -Current Size (cm) - Width 1 -Current Size (cm) - Depth 0.1 -Total Square Cm 1.7 -Photo Taken Yes -Epithelialization -Tunneling -Undermining/Tunneling -Circular Undermining -Exudate Amt Medium -Exudate Type Serosanguineous -Wound Margin Distinct, Outline Attached -Granulation Amt Medium (34-66%) -Granulation Quality Red -Slough/Fibrin -Necrosis Amt Medium (34-66%) -Necrotic Tissue Type Adherent Slough -Structure Exposed N/A -Texture (Astrid-wound Skin Appearance) Scarring -Moisture (Astrid-wound Skin Appearance) No Abnormality -Color (Astrid-wound Skin Appearance) Erythema -Temperature (Astrid-wound Skin No Abnormality Appearance) (Pt Warm) -Tenderness on Palpation (Astrid-wound No Skin Appearance) -Ulcer Cleansing Rinsed/ Irrigated with Saline -Foul Odor after Cleansing No -Anesthetic Used 5% Lidocaine Gel Lower Limb Edema Present Left Calf (cm) 39.5 Left Ankle (cm) 22.5 WC - Nurse 2 - General Ulcer CM Notes Start: 01/30/24 09:14 Freq: Status: Active Protocol: Activity Type Activity Date Activity User E-sign Co-sign Detail Recorded Client Recorded Date Recorded By Document 01/30/24 09:48 JF [id number] 01/30/24 09:49 Document 02/06/24 09:41 [id number] [id number] 02/06/24 09:44 JF Document 02/13/24 09:28 JF [id number] 02/13/24 09:30 JF Document 02/20/24 09:42 JF 0000 02/20/24 09:44 JF 01/30/24 02/06/24 02/13/24 09:48 09:41 09:28 Wound Center Nurse 2 1. LLE -Time 09:49 09:42 09:29 -Correct Patient Yes Yes Yes -Correct Side, Site, Position Yes Yes Yes -Correct Procedure Yes Yes Yes -Procedure Performed Yes Yes Yes -Type of Procedure Debridement Debridement Debridement -Clinical Debridement Subcutaneous Subcutaneous Subcutaneous -Tissue Removed Subcutaneous Subcutaneous Subcutaneous -Post Debridement (cm) - Length 2.8 2.7 2.4 -Post Debridement (cm) - Width 1.9 1.8 1.5 -Post Debridement (cm) - Depth 0.1 0.1 0.1 -Total Square (Post) (cm) 5.32 4.86 3.60 -Area of Debridement (cm) - Length 2.8 2.7 2.4 -Area of Debridement (cm) - Width 1.9 1.8 1.5 -Total Square (Area) (cm) 5.32 4.86 3.60 -Tunneling No No No -Undermining/Tunneling No No -Circular Undermining No No No -Wound/Ulcer Outcome Not Healed Not Healed Not Healed -Ulcer Cleansing Rinsed/ Rinsed/ Rinsed/ Irrigated with Irrigated with Irrigated with Saline Saline Saline -Foul Odor after Cleansing No No No -Bioengineered Tissue No No No -Bleeding Controlled with Pressure Pressure Pressure -Treatment Response Procedure Procedure Procedure Tolerated Well Tolerated Well Tolerated Well -Offloading No No No -Debridement - Subq, 1st 20sq cm Yes Yes Yes Pain Scale: 0-10 Numeric Is Patient Pain Free? Yes Yes Yes 02/20/24 09:42 Wound Center Nurse 2 1. LLE -Time 09:43 -Correct Patient Yes -Correct Side, Site, Position Yes -Correct Procedure Yes -Procedure Performed Yes -Type of Procedure Debridement -Clinical Debridement Subcutaneous -Tissue Removed Subcutaneous -Post Debridement (cm) - Length 1.8 -Post Debridement (cm) - Width 1.3 -Post Debridement (cm) - Depth 0.1 -Total Square (Post) (cm) 2.34 -Area of Debridement (cm) - Length 1.8 -Area of Debridement (cm) - Width 1.3 -Total Square (Area) (cm) 2.34 -Tunneling No -Undermining/Tunneling No -Circular Undermining No -Wound/Ulcer Outcome Not Healed -Ulcer Cleansing Rinsed/ Irrigated with Saline -Foul Odor after Cleansing No -Bioengineered Tissue No -Bleeding Controlled with Pressure -Treatment Response Procedure Tolerated Well -Offloading No -Debridement - Subq, 1st 20sq cm Yes Pain Scale: 0-10 Numeric Is Patient Pain Free? Yes - Nurse 3 - General Ulcer D/C NN Start: 01/30/24 09:14 Freq: Status: Active Protocol: Activity Type Activity Date Activity User E-sign Co-sign Detail Recorded Client Recorded Date Recorded By Document 01/30/24 10:20 RB wound center 01/30/24 10:20 RB Document 02/06/24 09:54 RB wound 02/06/24 09:55 RB Document 02/13/24 09:30 JF [id number] 02/13/24 09:34 JF Document 02/20/24 09:54 KW l 02/20/24 09:57 KW 01/30/24 02/06/24 02/13/24 10:20 09:54 09:30 Wound Care Center Nurse 3 1. LLE -Ulcer Cleansing Wound Cleanser Rinsed/ Irrigated with Saline -Foul Odor after Cleansing No -Primary Dressing Applied Silvercel Silvercel Mepilex Border, Silvercel -Primary Dressing Covered/Secured with Dry Gauze, Dry Gauze & Secured with Roll Gauze, Tape Secured with Tape -Mepilex Border 1 -Silvercel 1 1 1 Left -Tubular Bandage Double Layer Double Layer Double Layer -Size of Tubigrip Used Size E Size E Size E -Size E ($) 2 2 2 Treatment Response Procedure Procedure Tolerated Well Tolerated Well Pain Scale: 0-10 Numeric Is Patient Pain Free? Yes Yes Yes WC - Visit Discharge Discharge Condition Stable Stable Stable Ambulatory Status Ambulatory Ambulatory Ambulatory Transportation Private Auto Private Auto Private Auto Medication Reconcilliation completed & No No Yes provided to patient/care provider Clinical Summary of Care Provided Yes Yes Yes 02/20/24 09:54 Wound Care Center Nurse 3 1. LLE -Ulcer Cleansing -Foul Odor after Cleansing -Primary Dressing Applied Mepilex Border, Silvercel -Primary Dressing Covered/Secured with -Mepilex Border 1 -Silvercel 1 Left -Tubular Bandage Double Layer -Size of Tubigrip Used Size E -Size E ($) 2 Treatment Response Pain Scale: 0-10 Numeric Is Patient Pain Free? Yes WC - Visit Discharge Discharge Condition Ambulatory Status Transportation Medication Reconcilliation completed & provided to patient/care provider Clinical Summary of Care Provided Assessment/Plan Assessment/Plan (1) Venous insufficiency (chronic) (peripheral): CODE(S): I87.2 - Venous insufficiency (chronic) (peripheral) PLAN: Exam performed Wound decreased in size. No infection. Today left lower extremity wound was excisionally debrided down to including level of subcutaneous tissue of all nonviable tissue using 3 mm dermal curette. Topical anesthesia was used. Pre and postdebridement measurements documented nursing notes. Patient tolerated procedure well. Topical anesthesia used. Hemostasis obtained with light compression. Wound was flushed with copious amounts normal sterile saline, swab culture taken No additional antibiotics needed at this time Resolved stasis dermatitis- discontinued occlusive bordered foam, proceed with wound cleansing, application of triamcinolone ointment to periwound area, gauze, paper tape Significant wound improvement noted today. Patient to follow-up in 1 week (2) Non-pressure chronic ulcer of left ankle with fat layer exposed: CODE(S): L97.322 - Non-pressure chronic ulcer of left ankle with fat layer exposed (3) Stasis dermatitis of left lower extremity due to peripheral venous hypertension: CODE(S): I87.322 - Chronic venous hypertension (idiopathic) with inflammation of left lower extremity
== END 2024-02-25 23:59 | disposition home or self-care (01) ==
LOC: WC 09:15
PROVIDERS: PCP Family Medicine; Referring Provider Family Medicine; Visit Provider Podiatrist
DX: I87.322 Chronic venous hypertension (idiopathic) with inflammation of left lower extremity (principal); L97.322 Non-pressure chronic ulcer of left ankle with fat layer exposed; I87.2 Venous insufficiency (chronic) (peripheral); I80.02 Phlebitis and thrombophlebitis of superficial vessels of left lower extremity; S81.812S Laceration without foreign body, left lower leg, sequela; W20.8XXS Other cause of strike by thrown, projected or falling object, sequela; Z79.899 Other long term (current) drug therapy
CPT/HCPCS: 11042

== ENCOUNTER 2024-03-26 09:15 | Outpatient (RCR) | payer MEDICARE, OTHER, SELFPAY ==
[2024-02-26 00:33] VITALS: BP 119/68; PULSE 72; RESP 18; TEMP 36.5; BMI 31.7
[2024-02-27 09:10] VITALS: BP 136/62; PULSE 77; RESP 16; TEMP 35.7; BMI 31.7
--- NOTE | 2024-02-27 09:20 | PCM.WC.PN ---
History of Present Illness Date of Service: 02/27/24 History of Wound: 72-year-old male has had a wound since May 2023. Patient was chopping firewood and had a few piece of wood fall onto his left leg. Patient suffered a laceration was seen in the emergency department at that time which they flushed and cleaned the wound and closed it primarily after updating his tetanus status. Patient subsequently had his sutures removed and developed a full-thickness ulceration to his left medial leg. Patient had been performing self-care with daily dressing changes and noticed no healing, therefore, he presents today. Patient has no obvious medical problems and is not currently on any long-term medications. Patient does have bilateral lower extremity swelling. 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 Patient notes some pain to the wound site. Patient has no other complaints. Objective Data Objective Data Vital Signs: Vital Signs Temp Pulse Resp BP 96.3 F L 77 16 136/62 H 02/27/24 09:10 02/27/24 09:10 02/27/24 09:10 02/27/24 09:10 Weight: 106.141 kg Body Mass Index (BMI) 31.7 Physical Exam Narrative Patient has palpable 2 out of 4 DP PT pulses to right lower extremity. Left lower extremity PT is palpable 2 out of 4. Dorsalis pedis is biphasic On Doppler examination. Patient has +1 pitting edema to bilateral lower extremity perimalleolar region with positive hemosiderin deposits and superficial varicosities. Patient has intact light touch protective sensation as well as deep tendon reflexes Achilles. No obvious clonus. Full-thickness wound noted to the medial left ankle along the course of the great saphenous vein with a stable granular base. Wound decreased in size. No overt signs of infection such as erythema malodor or purulent drainage warmth. There is some pain to the wound and periwound area. Musculoskeletal muscular strength full to bilateral lower extremity compartments. No wounds forming deformities noted. No sign DVT. 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 ) Arrival Mode Ambulatory Patient Identification Verified (Name & Yes ) Patient Requires Transmission-Based No Precautions Height and Weight Body Mass Index (BMI) 31.7 BMI Classification Obese Vital Signs Temperature (97.8 F-99.1 F) 96.3 F L Temperature Source Temporal Pulse Rate (60-100) 77 Pulse Location Monitor Respiratory Rate (12-18) 16 Respiratory rate source Observation Blood Pressure (90/60-120/80) 136/62 H Blood Pressure Mean (mm Hg) 86 Source Monitor Position Semi-Fowlers Blood Pressure Location Left Arm History Since Last Visit- (Skip if this is Patient's initial visit) Have you changed medications since your No last visit? Any new allergies or adverse reactions No Had a fall/change in ADL's that may No increase risk of falls Signs or symptoms of abuse and/or No neglect since last visit Have you been in the hospital since your No last visit? Has dressing in place as prescribed Yes Has compression in place as prescribed Yes Has offloadiing in place as prescribed N/A Experienced any changes in pain level or No management Left Footwear Regular Shoe Right Footwear Regular Shoe Pain Scale: 0-10 Numeric Is Patient Pain Free? Yes - Nurse 1 - General Ulcer Measurement Start: 02/27/24 09:10 Freq: Status: Active Protocol: Activity Type Activity Date Activity User E-sign Co-sign Detail Recorded Client Recorded Date Recorded By Document 02/27/24 09:10 JF [id number] 02/27/24 09:14 02/27/24 09:10 Wound Center Nurse 1 1. LLE -Combined with other wound No -Current Size (cm) - Length 1.1 -Current Size (cm) - Width 1.5 -Current Size (cm) - Depth 0.1 -Total Square Cm 1.65 -Photo Taken No -Epithelialization Medium 34-66% -Tunneling No -Undermining/Tunneling No -Circular Undermining No -Exudate Amt Small -Exudate Type Serosanguineous -Wound Margin Flat & Intact -Granulation Amt Large (67-100%) -Granulation Quality Red -Slough/Fibrin Yes -Necrosis Amt Small (1-33%) -Necrotic Tissue Type Adherent Slough -Structure Exposed N/A -Texture (Astrid-wound Skin Appearance) Assessed, Scarring -Moisture (Astrid-wound Skin Appearance) Assessed,Dry/ Scaly -Color (Astrid-wound Skin Appearance) Assessed -Temperature (Astrid-wound Skin No Abnormality Appearance) (Pt Warm) -Tenderness on Palpation (Astrid-wound No Skin Appearance) -Ulcer Cleansing Rinsed/ Irrigated with Saline -Foul Odor after Cleansing No -Anesthetic Used 5% Lidocaine Gel Lower Limb Edema Present Yes Left Calf (cm) 40.2 Left Ankle (cm) 23.8 WC - Nurse 2 - General Ulcer CM Notes Start: 02/27/24 09:10 Freq: Status: Active Protocol: Activity Type Activity Date Activity User E-sign Co-sign Detail Recorded Client Recorded Date Recorded By Document 02/27/24 09:17 JF [id number] 02/27/24 09:19 02/27/24 09:17 Wound Center Nurse 2 1. LLE -Time 09:18 -Correct Patient Yes -Correct Side, Site, Position Yes -Correct Procedure Yes -Procedure Performed Yes -Type of Procedure Debridement -Clinical Debridement Subcutaneous -Tissue Removed Muscle -Post Debridement (cm) - Length 1.2 -Post Debridement (cm) - Width 1.5 -Post Debridement (cm) - Depth 0.1 -Total Square (Post) (cm) 1.80 -Area of Debridement (cm) - Length 1.2 -Area of Debridement (cm) - Width 1.5 -Total Square (Area) (cm) 1.80 -Tunneling No -Undermining/Tunneling No -Circular Undermining No -Wound/Ulcer Outcome Not Healed -Ulcer Cleansing Rinsed/ Irrigated with Saline -Foul Odor after Cleansing No -Bioengineered Tissue No -Bleeding Controlled with Pressure -Treatment Response Procedure Tolerated Well -Offloading No -Debridement - Subq, 1st 20sq cm Yes Pain Scale: 0-10 Numeric Is Patient Pain Free? Yes Assessment/Plan Assessment/Plan (1) Venous insufficiency (chronic) (peripheral): CODE(S): I87.2 - Venous insufficiency (chronic) (peripheral) PLAN: Exam performed Wound decreased in size. No infection. Today left lower extremity wound was excisionally debrided down to including level of subcutaneous tissue of all nonviable tissue using 3 mm dermal curette. Topical anesthesia was used. Pre and postdebridement measurements documented nursing notes. Patient tolerated procedure well. Topical anesthesia used. Hemostasis obtained with light compression. Wound was flushed with copious amounts normal sterile saline, swab culture taken No additional antibiotics needed at this time Resolved stasis dermatitis- discontinued occlusive bordered foam, proceed with wound cleansing, application of triamcinolone ointment to periwound area, gauze, paper tape Significant wound improvement noted today. Patient to follow-up in 1 week (2) Non-pressure chronic ulcer of left ankle with fat layer exposed: CODE(S): L97.322 - Non-pressure chronic ulcer of left ankle with fat layer exposed (3) Stasis dermatitis of left lower extremity due to peripheral venous hypertension: CODE(S): I87.322 - Chronic venous hypertension (idiopathic) with inflammation of left lower extremity
[2024-03-05 09:09] VITALS: BP 139/61; PULSE 68; RESP 16; TEMP 35.8; BMI 31.7
--- NOTE | 2024-03-05 09:36 | PN.PCM_ITS ---
History of Present Illness Date of Service: 03/05/24 History of Wound: 72-year-old male has had a wound since May 2023. Patient was chopping firewood and had a few piece of wood fall onto his left leg. Patient suffered a laceration was seen in the emergency department at that time which they flushed and cleaned the wound and closed it primarily after updating his tetanus status. Patient subsequently had his sutures removed and developed a full-thickness ulceration to his left medial leg. Patient had been performing self-care with daily dressing changes and noticed no healing, therefore, he presents today. Patient has no obvious medical problems and is not currently on any long-term medications. Patient does have bilateral lower extremity swelling. 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 Patient notes some pain to the wound site. Patient has no other complaints. Objective Data Objective Data Vital Signs: Vital Signs Temp Pulse Resp BP O2 Del Method 96.4 F L 68 16 139/61 H Room Air 03/05/24 09:09 03/05/24 09:09 03/05/24 09:09 03/05/24 09:09 03/05/24 09:09 Oxygen Delivery Method Room Air Weight: 106.141 kg Body Mass Index (BMI) 31.7 Physical Exam Narrative Patient has palpable 2 out of 4 DP PT pulses to right lower extremity. Left lower extremity PT is palpable 2 out of 4. Dorsalis pedis is biphasic On Doppler examination. Patient has +1 pitting edema to bilateral lower extremity perimalleolar region with positive hemosiderin deposits and superficial varicosities. Patient has intact light touch protective sensation as well as deep tendon reflexes Achilles. No obvious clonus. Full-thickness wound noted to the medial left ankle along the course of the great saphenous vein with a stable granular base. Wound decreased in size. No overt signs of infection such as erythema malodor or purulent drainage warmth. There is some pain to the wound and periwound area. Musculoskeletal muscular strength full to bilateral lower extremity compartments. No wounds forming deformities noted. No sign DVT. Const alert and oriented x3 Debridement Note Debridement Note Post-Debridement Measurements and Additional Note: Post-Debridement Measurements/Treatment KIRSTY - Nurse 1 - General Ulcer Assessment Start: 02/27/24 09:10 Freq: Status: Active Protocol: LOWEXT Activity Type Activity Date Activity User E-sign Co-sign Detail Recorded Client Recorded Date Recorded By Document 02/27/24 09:10 [id number] [id number] 02/27/24 09:14 Document 03/05/24 09:09 KW l 03/05/24 09:16 KW 02/27/24 03/05/24 09:10 09:09 - Today's Visit Information Type of service Follow-up Visit (Physician/ASSESSMENT CONSULTANT ) Arrival Mode Ambulatory Patient Identification Verified (Name & Yes ) Patient Requires Transmission-Based No Precautions Height and Weight Body Mass Index (BMI) 31.7 31.7 BMI Classification Obese Obese Vital Signs Temperature (97.8 F-99.1 F) 96.3 F L 96.4 F L Temperature Source Temporal Temporal Pulse Rate (60-100) 77 68 Pulse Location Monitor Monitor Respiratory Rate (12-18) 16 16 Respiratory rate source Observation Monitor Oxygen Delivery Method Room Air Blood Pressure (90/60-120/80) 136/62 H 139/61 H Blood Pressure Mean (mm Hg) 86 87 Source Monitor Monitor Position Semi-Fowlers Semi-Fowlers Blood Pressure Location Left Arm Left Arm History Since Last Visit- (Skip if this is Patient's initial visit) Have you changed medications since your No No last visit? Any new allergies or adverse reactions No No Had a fall/change in ADL's that may No No increase risk of falls Signs or symptoms of abuse and/or No No neglect since last visit Have you been in the hospital since your No No last visit? Has dressing in place as prescribed Yes Yes Has compression in place as prescribed Yes Yes Has offloadiing in place as prescribed N/A N/A Experienced any changes in pain level or No No management Left Footwear Regular Shoe Regular Shoe Right Footwear Regular Shoe Regular Shoe Pain Scale: 0-10 Numeric Is Patient Pain Free? Yes Yes - Nurse 1 - General Ulcer Measurement Start: 02/27/24 09:10 Freq: Status: Active Protocol: Activity Type Activity Date Activity User E-sign Co-sign Detail Recorded Client Recorded Date Recorded By Document 02/27/24 09:10 [id number] [id number] 02/27/24 09:14 Document 03/05/24 09:09 KW l 03/05/24 09:16 KW 02/27/24 03/05/24 09:10 09:09 Wound Center Nurse 1 1. LLE -Combined with other wound No -Current Size (cm) - Length 1.1 1 -Current Size (cm) - Width 1.5 0.6 -Current Size (cm) - Depth 0.1 0.1 -Total Square Cm 1.65 0.6 -Photo Taken No Yes -Epithelialization Medium 34-66% -Tunneling No -Undermining/Tunneling No -Circular Undermining No -Exudate Amt Small Medium -Exudate Type Serosanguineous Serosanguineous -Wound Margin Flat & Intact Distinct, Outline Attached -Granulation Amt Large (67-100%) Large (67-100%) -Granulation Quality Red [place],Red -Slough/Fibrin Yes -Necrosis Amt Small (1-33%) Small (1-33%) -Necrotic Tissue Type Adherent Slough Adherent Slough -Structure Exposed N/A N/A -Texture (Astrid-wound Skin Appearance) Assessed, Scarring Scarring -Moisture (Astrid-wound Skin Appearance) Assessed,Dry/ No Abnormality Scaly -Color (Astrid-wound Skin Appearance) Assessed No Abnormality -Temperature (Astrid-wound Skin No Abnormality No Abnormality Appearance) (Pt Warm) (Pt Warm) -Tenderness on Palpation (Astrid-wound No No Skin Appearance) -Ulcer Cleansing Rinsed/ Soap and Water Irrigated with Saline -Foul Odor after Cleansing No No -Anesthetic Used 5% Lidocaine 5% Lidocaine Gel Gel Lower Limb Edema Present Yes Left Calf (cm) 40.2 39.6 Left Ankle (cm) 23.8 22.3 WC - Nurse 2 - General Ulcer CM Notes Start: 02/27/24 09:10 Freq: Status: Active Protocol: Activity Type Activity Date Activity User E-sign Co-sign Detail Recorded Client Recorded Date Recorded By Document 02/27/24 09:17 [id number] 02/27/24 09:19 Document 03/05/24 09:26 JF 0000 03/05/24 09:28 JF 02/27/24 03/05/24 09:17 09:26 Wound Center Nurse 2 1. LLE -Time 09:18 09:26 -Correct Patient Yes Yes -Correct Side, Site, Position Yes Yes -Correct Procedure Yes Yes -Procedure Performed Yes Yes -Type of Procedure Debridement Debridement -Clinical Debridement Subcutaneous Subcutaneous -Tissue Removed Muscle Subcutaneous -Post Debridement (cm) - Length 1.2 1.4 -Post Debridement (cm) - Width 1.5 0.7 -Post Debridement (cm) - Depth 0.1 0.1 -Total Square (Post) (cm) 1.80 0.98 -Area of Debridement (cm) - Length 1.2 1.4 -Area of Debridement (cm) - Width 1.5 0.7 -Total Square (Area) (cm) 1.80 0.98 -Tunneling No No -Undermining/Tunneling No No -Circular Undermining No No -Wound/Ulcer Outcome Not Healed Not Healed -Ulcer Cleansing Rinsed/ Rinsed/ Irrigated with Irrigated with Saline Saline -Foul Odor after Cleansing No No -Bioengineered Tissue No No -Bleeding Controlled with Pressure Pressure -Treatment Response Procedure Procedure Tolerated Well Tolerated Well -Offloading No No -Debridement - Subq, 1st 20sq cm Yes Yes Pain Scale: 0-10 Numeric Is Patient Pain Free? Yes Yes - Nurse 3 - General Ulcer D/C NN Start: 02/27/24 09:10 Freq: Status: Active Protocol: Activity Type Activity Date Activity User E-sign Co-sign Detail Recorded Client Recorded Date Recorded By Document 02/27/24 09:22 KW z 02/27/24 09:25 KW Document 03/05/24 09:31 KW l 03/05/24 09:32 KW 02/27/24 03/05/24 09:22 09:31 Wound Care Center Nurse 3 1. LLE -Ulcer Cleansing Rinsed/ Irrigated with Saline -Foul Odor after Cleansing No -Primary Dressing Applied Mepilex Border, [place] -Other Dressing hydrogel -Primary Dressing Covered/Secured with Dry Gauze, Secured with Tape -Mepilex Border 1 -Silvercel 1 Left -Tubular Bandage Double Layer Double Layer -Size of Tubigrip Used Size E Size E -Size E ($) 2 2 Treatment Response Procedure Tolerated Well Pain Scale: 0-10 Numeric Is Patient Pain Free? Yes Yes - Visit Discharge Discharge Condition Stable Stable Ambulatory Status Ambulatory Ambulatory Transportation Private Auto Private Auto Medication Reconcilliation completed & No provided to patient/care provider Clinical Summary of Care Provided Yes Assessment/Plan Assessment/Plan (1) Venous insufficiency (chronic) (peripheral): CODE(S): I87.2 - Venous insufficiency (chronic) (peripheral) PLAN: Exam performed Wound decreased in size. No infection. Today left lower extremity wound was excisionally debrided down to including level of subcutaneous tissue of all nonviable tissue using 3 mm dermal curette. Topical anesthesia was used. Pre and postdebridement measurements documented nursing notes. Patient tolerated procedure well. Topical anesthesia used. Hemostasis obtained with light compression. Wound was flushed with copious amounts normal sterile saline, swab culture taken No additional antibiotics needed at this time Resolved stasis dermatitis- discontinued occlusive bordered foam, proceed with wound cleansing, application of triamcinolone ointment to periwound area, gauze, paper tape Significant wound improvement noted today. Patient to follow-up in 1 week (2) Non-pressure chronic ulcer of left ankle with fat layer exposed: CODE(S): L97.322 - Non-pressure chronic ulcer of left ankle with fat layer exposed (3) Stasis dermatitis of left lower extremity due to peripheral venous hypertension: CODE(S): I87.322 - Chronic venous hypertension (idiopathic) with inflammation of left lower extremity
--- NOTE | 2024-03-07 09:37 | WC ---
PHOTO 03/05/2024 RODRIGUE
[2024-03-12 09:23] VITALS: BP 160/62; PULSE 63; RESP 18; TEMP 36.2; BMI 31.7
--- NOTE | 2024-03-12 09:32 | PN.PCM_ITS ---
History of Present Illness Date of Service: 03/12/24 History of Wound: 72-year-old male has had a wound since May 2023. Patient was chopping firewood and had a few piece of wood fall onto his left leg. Patient suffered a laceration was seen in the emergency department at that time which they flushed and cleaned the wound and closed it primarily after updating his tetanus status. Patient subsequently had his sutures removed and developed a full-thickness ulceration to his left medial leg. Patient had been performing self-care with daily dressing changes and noticed no healing, therefore, he presents today. Patient has no obvious medical problems and is not currently on any long-term medications. Patient does have bilateral lower extremity swelling. 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 Patient notes some pain to the wound site. Patient has no other complaints. Objective Data Objective Data Vital Signs: Vital Signs Temp Pulse Resp BP O2 Del Method 97.2 F L 63 18 160/62 H Room Air 03/12/24 09:23 03/12/24 09:23 03/12/24 09:23 03/12/24 09:23 03/05/24 09:09 Oxygen Delivery Method Room Air Weight: 106.141 kg Body Mass Index (BMI) 31.7 Physical Exam Narrative Patient has palpable 2 out of 4 DP PT pulses to right lower extremity. Left lower extremity PT is palpable 2 out of 4. Dorsalis pedis is biphasic On Doppler examination. Patient has +1 pitting edema to bilateral lower extremity perimalleolar region with positive hemosiderin deposits and superficial varicosities. Patient has intact light touch protective sensation as well as deep tendon reflexes Achilles. No obvious clonus. Full-thickness wound noted to the medial left ankle along the course of the great saphenous vein with a stable granular base. Wound decreased in size. No overt signs of infection such as erythema malodor or purulent drainage warmth. There is some pain to the wound and periwound area. Musculoskeletal muscular strength full to bilateral lower extremity compartments. No wounds forming deformities noted. No sign DVT. Const alert and oriented x3 Debridement Note Debridement Note Post-Debridement Measurements and Additional Note: Post-Debridement Measurements/Treatment KIRSTY - Nurse 1 - General Ulcer Assessment Start: 02/27/24 09:10 Freq: Status: Active Protocol: LOWEXT Activity Type Activity Date Activity User E-sign Co-sign Detail Recorded Client Recorded Date Recorded By Document 02/27/24 09:10 JF [id number] 02/27/24 09:14 JF Document 03/05/24 09:09 KW l 03/05/24 09:16 KW Document 03/12/24 09:23 RB wound 03/12/24 09:25 RB 02/27/24 03/05/24 03/12/24 09:10 09:09 09:23 WC - Today's Visit Information Type of service Follow-up Visit Follow-up Visit (Physician/MACHINE BANDER AND CELLOPHANER HELPER (Physician/MACHINE BANDER AND CELLOPHANER HELPER ) ) Arrival Mode Ambulatory Ambulatory Transfer Assistance None Patient Identification Verified (Name & Yes Yes ) Patient Requires Transmission-Based No No Precautions Height and Weight Body Mass Index (BMI) 31.7 31.7 31.7 BMI Classification Obese Obese Obese Vital Signs Temperature (97.8 F-99.1 F) 96.3 F L 96.4 F L 97.2 F L Temperature Source Temporal Temporal Temporal Pulse Rate (60-100) 77 68 63 Pulse Location Monitor Monitor Monitor Respiratory Rate (12-18) 16 16 18 Respiratory rate source Observation Monitor Observation Oxygen Delivery Method Room Air Blood Pressure (90/60-120/80) 136/62 H 139/61 H 160/62 H Blood Pressure Mean (mm Hg) 86 87 94 Source Monitor Monitor Monitor Position Semi-Fowlers Semi-Fowlers Semi-Fowlers Blood Pressure Location Left Arm Left Arm Left Arm History Since Last Visit- (Skip if this is Patient's initial visit) Have you changed medications since your No No No last visit? Any new allergies or adverse reactions No No No Had a fall/change in ADL's that may No No No increase risk of falls Signs or symptoms of abuse and/or No No No neglect since last visit Have you been in the hospital since your No No No last visit? Has dressing in place as prescribed Yes Yes Yes Has compression in place as prescribed Yes Yes Yes Has offloadiing in place as prescribed N/A N/A No Experienced any changes in pain level or No No No management Left Footwear Regular Shoe Regular Shoe Right Footwear Regular Shoe Regular Shoe Pain Scale: 0-10 Numeric Is Patient Pain Free? Yes Yes Yes - Nurse 1 - General Ulcer Measurement Start: 02/27/24 09:10 Freq: Status: Active Protocol: Activity Type Activity Date Activity User E-sign Co-sign Detail Recorded Client Recorded Date Recorded By Document 02/27/24 09:10 JF [id number] 02/27/24 09:14 JF Document 03/05/24 09:09 KW l 03/05/24 09:16 KW Document 03/12/24 09:23 RB wound 03/12/24 09:25 RB 02/27/24 03/05/24 03/12/24 09:10 09:09 09:23 Wound Center Nurse 1 1. LLE -Combined with other wound No No -Current Size (cm) - Length 1.1 1 1.1 -Current Size (cm) - Width 1.5 0.6 0.9 -Current Size (cm) - Depth 0.1 0.1 0.1 -Total Square Cm 1.65 0.6 0.99 -Photo Taken No Yes Yes -Epithelialization Medium 34-66% -Tunneling No No -Undermining/Tunneling No No -Circular Undermining No No -Exudate Amt Small Medium Medium -Exudate Type Serosanguineous Serosanguineous Serosanguineous -Wound Margin Flat & Intact Distinct, Distinct, Outline Outline Attached Attached -Granulation Amt Large (67-100%) Large (67-100%) Medium (34-66%) -Granulation Quality Red [place],Red [place] -Slough/Fibrin Yes Yes -Necrosis Amt Small (1-33%) Small (1-33%) Medium (34-66%) -Necrotic Tissue Type Adherent Slough Adherent Slough Adherent Slough -Structure Exposed N/A N/A N/A -Texture (Astrid-wound Skin Appearance) Assessed, Scarring Assessed Scarring -Moisture (Astrid-wound Skin Appearance) Assessed,Dry/ No Abnormality Assessed Scaly -Color (Astrid-wound Skin Appearance) Assessed No Abnormality Hemosiderin Staining -Temperature (Astrid-wound Skin No Abnormality No Abnormality No Abnormality Appearance) (Pt Warm) (Pt Warm) (Pt Warm) -Tenderness on Palpation (Astrid-wound No No No Skin Appearance) -Ulcer Cleansing Rinsed/ Soap and Water Wound Cleanser Irrigated with Saline -Foul Odor after Cleansing No No No -Anesthetic Used 5% Lidocaine 5% Lidocaine 5% Lidocaine Gel Gel Gel Lower Limb Edema Present Yes Yes Left Calf (cm) 40.2 39.6 41 Left Ankle (cm) 23.8 22.3 23.5 WC - Nurse 2 - General Ulcer CM Notes Start: 02/27/24 09:10 Freq: Status: Active Protocol: Activity Type Activity Date Activity User E-sign Co-sign Detail Recorded Client Recorded Date Recorded By Document 02/27/24 09:17 JF [id number] 02/27/24 09:19 JF Document 03/05/24 09:26 JF 0000 03/05/24 09:28 JF Document 03/12/24 09:28 BM [id number] 03/12/24 09:31 BMF 02/27/24 03/05/24 03/12/24 09:17 09:26 09:28 Wound Center Nurse 2 1. LLE -Time 09:18 09:26 09:29 -Correct Patient Yes Yes Yes -Correct Side, Site, Position Yes Yes Yes -Correct Procedure Yes Yes Yes -Procedure Performed Yes Yes Yes -Type of Procedure Debridement Debridement Debridement -Clinical Debridement Subcutaneous Subcutaneous Subcutaneous -Tissue Removed Muscle Subcutaneous Subcutaneous -Post Debridement (cm) - Length 1.2 1.4 1 -Post Debridement (cm) - Width 1.5 0.7 0.7 -Post Debridement (cm) - Depth 0.1 0.1 0.2 -Total Square (Post) (cm) 1.80 0.98 0.7 -Area of Debridement (cm) - Length 1.2 1.4 1 -Area of Debridement (cm) - Width 1.5 0.7 0.7 -Total Square (Area) (cm) 1.80 0.98 0.7 -Tunneling No No No -Undermining/Tunneling No No No -Circular Undermining No No No -Wound/Ulcer Outcome Not Healed Not Healed Not Healed -Ulcer Cleansing Rinsed/ Rinsed/ Rinsed/ Irrigated with Irrigated with Irrigated with Saline Saline Saline -Foul Odor after Cleansing No No No -Bioengineered Tissue No No No -Bleeding Controlled with Pressure Pressure Pressure -Treatment Response Procedure Procedure Procedure Tolerated Well Tolerated Well Tolerated Well -Offloading No No -Debridement - Subq, 1st 20sq cm Yes Yes Yes Pain Scale: 0-10 Numeric Is Patient Pain Free? Yes Yes Yes KIRSTY - Nurse 3 - General Ulcer D/C NN Start: 02/27/24 09:10 Freq: Status: Active Protocol: Activity Type Activity Date Activity User E-sign Co-sign Detail Recorded Client Recorded Date Recorded By Document 02/27/24 09:22 KW z 02/27/24 09:25 KW Document 03/05/24 09:31 KW l 03/05/24 09:32 KW 02/27/24 03/05/24 09:22 09:31 Wound Care Center Nurse 3 1. LLE -Ulcer Cleansing Rinsed/ Irrigated with Saline -Foul Odor after Cleansing No -Primary Dressing Applied Mepilex Border, Silvercel -Other Dressing hydrogel -Primary Dressing Covered/Secured with Dry Gauze, Secured with Tape -Mepilex Border 1 -Silvercel 1 Left -Tubular Bandage Double Layer Double Layer -Size of Tubigrip Used Size E Size E -Size E ($) 2 2 Treatment Response Procedure Tolerated Well Pain Scale: 0-10 Numeric Is Patient Pain Free? Yes Yes WC - Visit Discharge Discharge Condition Stable Stable Ambulatory Status Ambulatory Ambulatory Transportation Private Auto Private Auto Medication Reconcilliation completed & No provided to patient/care provider Clinical Summary of Care Provided Yes Assessment/Plan Assessment/Plan (1) Venous insufficiency (chronic) (peripheral): CODE(S): I87.2 - Venous insufficiency (chronic) (peripheral) PLAN: Exam performed Wound decreased in size. No infection. Today left lower extremity wound was excisionally debrided down to including level of subcutaneous tissue of all nonviable tissue using 3 mm dermal curette. Topical anesthesia was used. Pre and postdebridement measurements documented nursing notes. Patient tolerated procedure well. Topical anesthesia used. Hemostasis obtained with light compression. Wound was flushed with copious amounts normal sterile saline, swab culture taken No additional antibiotics needed at this time Resolved stasis dermatitis- discontinued occlusive bordered foam, proceed with wound cleansing, application of triamcinolone ointment to periwound area, gauze, paper tape Significant wound improvement noted today. Patient to follow-up in 1 week (2) Non-pressure chronic ulcer of left ankle with fat layer exposed: CODE(S): L97.322 - Non-pressure chronic ulcer of left ankle with fat layer exposed (3) Stasis dermatitis of left lower extremity due to peripheral venous hypertension: CODE(S): I87.322 - Chronic venous hypertension (idiopathic) with inflammation of left lower extremity
--- NOTE | 2024-03-13 09:00 | WC ---
PHOTO 03/12/24 LEFT LEG
[2024-03-19 09:35] VITALS: BP 130/81; PULSE 73; RESP 18; TEMP 36.2; BMI 31.7
--- NOTE | 2024-03-19 10:19 | PCM.WC.PN ---
History of Present Illness Date of Service: 03/19/24 History of Wound: 72-year-old male has had a wound since May 2023. Patient was chopping firewood and had a few piece of wood fall onto his left leg. Patient suffered a laceration was seen in the emergency department at that time which they flushed and cleaned the wound and closed it primarily after updating his tetanus status. Patient subsequently had his sutures removed and developed a full-thickness ulceration to his left medial leg. Patient had been performing self-care with daily dressing changes and noticed no healing, therefore, he presents today. Patient has no obvious medical problems and is not currently on any long-term medications. Patient does have bilateral lower extremity swelling. 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 Patient notes some pain to the wound site. Patient has no other complaints. Objective Data Objective Data Vital Signs: Vital Signs Temp Pulse Resp BP O2 Del Method 97.1 F L 73 18 130/81 H Room Air 03/19/24 09:35 03/19/24 09:35 03/19/24 09:35 03/19/24 09:35 03/19/24 09:35 Oxygen Delivery Method Room Air Weight: 106.141 kg Body Mass Index (BMI) 31.7 Physical Exam Narrative Patient has palpable 2 out of 4 DP PT pulses to right lower extremity. Left lower extremity PT is palpable 2 out of 4. Dorsalis pedis is biphasic On Doppler examination. Patient has +1 pitting edema to bilateral lower extremity perimalleolar region with positive hemosiderin deposits and superficial varicosities. Patient has intact light touch protective sensation as well as deep tendon reflexes Achilles. No obvious clonus. Full-thickness wound noted to the medial left ankle along the course of the great saphenous vein with a stable granular base. Wound decreased in size. No overt signs of infection such as erythema malodor or purulent drainage warmth. There is some pain to the wound and periwound area. Musculoskeletal muscular strength full to bilateral lower extremity compartments. No wounds forming deformities noted. No sign DVT. Const alert and oriented x3 Debridement Note Debridement Note Post-Debridement Measurements and Additional Note: Post-Debridement Measurements/Treatment KIRSTY - Nurse 1 - General Ulcer Assessment Start: 02/27/24 09:10 Freq: Status: Active Protocol: LOWEXT Activity Type Activity Date Activity User E-sign Co-sign Detail Recorded Client Recorded Date Recorded By Document 02/27/24 09:10 JF [id number] 02/27/24 09:14 JF Document 03/05/24 09:09 KW l 03/05/24 09:16 KW Document 03/12/24 09:23 RB wound 03/12/24 09:25 RB Document 03/19/24 09:35 KW l 03/19/24 09:48 KW 02/27/24 03/05/24 03/12/24 09:10 09:09 09:23 WC - Today's Visit Information Type of service Follow-up Visit Follow-up Visit (Physician/EDITOR GREETING CARD (Physician/EDITOR GREETING CARD ) ) Arrival Mode Ambulatory Ambulatory Transfer Assistance None Patient Identification Verified (Name & Yes Yes ) Patient Requires Transmission-Based No No Precautions Height and Weight Body Mass Index (BMI) 31.7 31.7 31.7 BMI Classification Obese Obese Obese Vital Signs Temperature (97.8 F-99.1 F) 96.3 F L 96.4 F L 97.2 F L Temperature Source Temporal Temporal Temporal Pulse Rate (60-100) 77 68 63 Pulse Location Monitor Monitor Monitor Respiratory Rate (12-18) 16 16 18 Respiratory rate source Observation Monitor Observation Oxygen Delivery Method Room Air Blood Pressure (90/60-120/80) 136/62 H 139/61 H 160/62 H Blood Pressure Mean (mm Hg) 86 87 94 Source Monitor Monitor Monitor Position Semi-Fowlers Semi-Fowlers Semi-Fowlers Blood Pressure Location Left Arm Left Arm Left Arm History Since Last Visit- (Skip if this is Patient's initial visit) Have you changed medications since your No No No last visit? Any new allergies or adverse reactions No No No Had a fall/change in ADL's that may No No No increase risk of falls Signs or symptoms of abuse and/or No No No neglect since last visit Have you been in the hospital since your No No No last visit? Has dressing in place as prescribed Yes Yes Yes Has compression in place as prescribed Yes Yes Yes Has offloadiing in place as prescribed N/A N/A No Experienced any changes in pain level or No No No management Left Footwear Regular Shoe Regular Shoe Right Footwear Regular Shoe Regular Shoe Pain Scale: 0-10 Numeric Is Patient Pain Free? Yes Yes Yes 03/19/24 09:35 WC - Today's Visit Information Type of service Follow-up Visit (Physician/EDITOR [employer] ) Arrival Mode Ambulatory Transfer Assistance Patient Identification Verified (Name & Yes ) Patient Requires Transmission-Based Precautions Height and Weight Body Mass Index (BMI) 31.7 BMI Classification Obese Vital Signs Temperature (97.8 F-99.1 F) 97.1 F L Temperature Source Temporal Pulse Rate (60-100) 73 Pulse Location Monitor Respiratory Rate (12-18) 18 Respiratory rate source Observation Oxygen Delivery Method Room Air Blood Pressure (90/60-120/80) 130/81 H Blood Pressure Mean (mm Hg) 97 Source Monitor Position Sitting Blood Pressure Location Left Arm History Since Last Visit- (Skip if this is Patient's initial visit) Have you changed medications since your No last visit? Any new allergies or adverse reactions No Had a fall/change in ADL's that may No increase risk of falls Signs or symptoms of abuse and/or No neglect since last visit Have you been in the hospital since your No last visit? Has dressing in place as prescribed Yes Has compression in place as prescribed Yes Has offloadiing in place as prescribed N/A Experienced any changes in pain level or No management Left Footwear Regular Shoe Right Footwear Regular Shoe Pain Scale: 0-10 Numeric Is Patient Pain Free? Yes - Nurse 1 - General Ulcer Measurement Start: 02/27/24 09:10 Freq: Status: Active Protocol: Activity Type Activity Date Activity User E-sign Co-sign Detail Recorded Client Recorded Date Recorded By Document 02/27/24 09:10 JF [id number] 02/27/24 09:14 JF Document 03/05/24 09:09 KW l 03/05/24 09:16 KW Document 03/12/24 09:23 RB wound 03/12/24 09:25 RB Document 03/19/24 09:35 KW l 03/19/24 09:48 KW 02/27/24 03/05/24 03/12/24 09:10 09:09 09:23 Wound Center Nurse 1 1. LLE -Combined with other wound No No -Current Size (cm) - Length 1.1 1 1.1 -Current Size (cm) - Width 1.5 0.6 0.9 -Current Size (cm) - Depth 0.1 0.1 0.1 -Total Square Cm 1.65 0.6 0.99 -Date of Last Picture (Recall this field) -Photo Taken No Yes Yes -Epithelialization Medium 34-66% -Tunneling No No -Undermining/Tunneling No No -Circular Undermining No No -Exudate Amt Small Medium Medium -Exudate Type Serosanguineous Serosanguineous Serosanguineous -Wound Margin Flat & Intact Distinct, Distinct, Outline Outline Attached Attached -Granulation Amt Large (67-100%) Large (67-100%) Medium (34-66%) -Granulation Quality [place] -Slough/Fibrin Yes Yes -Necrosis Amt Small (1-33%) Small (1-33%) Medium (34-66%) -Necrotic Tissue Type Adherent Slough Adherent Slough Adherent Slough -Structure Exposed N/A N/A N/A -Texture (Astrid-wound Skin Appearance) Assessed, Scarring Assessed Scarring -Moisture (Astrid-wound Skin Appearance) Assessed,Dry/ No Abnormality Assessed Scaly -Color (Astrid-wound Skin Appearance) Assessed No Abnormality Hemosiderin Staining -Temperature (Astrid-wound Skin No Abnormality No Abnormality No Abnormality Appearance) (Pt Warm) (Pt Warm) (Pt Warm) -Tenderness on Palpation (Astrid-wound No No No Skin Appearance) -Ulcer Cleansing Rinsed/ Soap and Water Wound Cleanser Irrigated with Saline -Foul Odor after Cleansing No No No -Anesthetic Used 5% Lidocaine 5% Lidocaine 5% Lidocaine Gel Gel Gel Lower Limb Edema Present Yes Yes Left Calf (cm) 40.2 39.6 41 Left Ankle (cm) 23.8 22.3 23.5 03/19/24 09:35 Wound Center Nurse 1 1. LLE -Combined with other wound -Current Size (cm) - Length 0.9 -Current Size (cm) - Width 0.5 -Current Size (cm) - Depth 0.1 -Total Square Cm 0.45 -Date of Last Picture (Recall this 03/19/24 field) -Photo Taken -Epithelialization Large 67-100% -Tunneling -Undermining/Tunneling -Circular Undermining -Exudate Amt Small -Exudate Type Serosanguineous -Wound Margin Distinct, Outline Attached -Granulation Amt Large (67-100%) -Granulation Quality Red -Slough/Fibrin -Necrosis Amt Small (1-33%) -Necrotic Tissue Type Adherent Slough -Structure Exposed -Texture (Astrid-wound Skin Appearance) Assessed -Moisture (Astrid-wound Skin Appearance) Assessed -Color (Astrid-wound Skin Appearance) Not Assessed -Temperature (Astrid-wound Skin No Abnormality Appearance) (Pt Warm) -Tenderness on Palpation (Astrid-wound No Skin Appearance) -Ulcer Cleansing Rinsed/ Irrigated with Saline -Foul Odor after Cleansing No -Anesthetic Used 5% Lidocaine Gel Lower Limb Edema Present Left Calf (cm) 39.5 Left Ankle (cm) 24 WC - Nurse 2 - General Ulcer CM Notes Start: 02/27/24 09:10 Freq: Status: Active Protocol: Activity Type Activity Date Activity User E-sign Co-sign Detail Recorded Client Recorded Date Recorded By Document 02/27/24 09:17 [id number] 02/27/24 09:19 Document 03/05/24 09:26 0000 03/05/24 09:28 Document 03/12/24 09:28 [facility] [email or web address] 03/12/24 09:31 [facility] Document 03/19/24 10:12 0000 03/19/24 10:14 JF 02/27/24 03/05/24 03/12/24 09:17 09:26 09:28 Wound Center Nurse 2 1. LLE -Time 09:18 09:26 09:29 -Correct Patient Yes Yes Yes -Correct Side, Site, Position Yes Yes Yes -Correct Procedure Yes Yes Yes -Procedure Performed Yes Yes Yes -Type of Procedure Debridement Debridement Debridement -Clinical Debridement Subcutaneous Subcutaneous Subcutaneous -Tissue Removed Muscle Subcutaneous Subcutaneous -Post Debridement (cm) - Length 1.2 1.4 1 -Post Debridement (cm) - Width 1.5 0.7 0.7 -Post Debridement (cm) - Depth 0.1 0.1 0.2 -Total Square (Post) (cm) 1.80 0.98 0.7 -Area of Debridement (cm) - Length 1.2 1.4 1 -Area of Debridement (cm) - Width 1.5 0.7 0.7 -Total Square (Area) (cm) 1.80 0.98 0.7 -Tunneling No No No -Undermining/Tunneling No No No -Circular Undermining No No No -Wound/Ulcer Outcome Not Healed Not Healed Not Healed -Ulcer Cleansing Rinsed/ Rinsed/ Rinsed/ Irrigated with Irrigated with Irrigated with Saline Saline Saline -Foul Odor after Cleansing No No No -Bioengineered Tissue No No No -Bleeding Controlled with Pressure Pressure Pressure -Treatment Response Procedure Procedure Procedure Tolerated Well Tolerated Well Tolerated Well -Offloading No No -Debridement - Subq, 1st 20sq cm Yes Yes Yes Pain Scale: 0-10 Numeric Is Patient Pain Free? Yes Yes Yes 03/19/24 10:12 Wound Center Nurse 2 1. LLE -Time 10:13 -Correct Patient Yes -Correct Side, Site, Position Yes -Correct Procedure Yes -Procedure Performed Yes -Type of Procedure Debridement -Clinical Debridement Subcutaneous -Tissue Removed Subcutaneous -Post Debridement (cm) - Length 0.7 -Post Debridement (cm) - Width 0.9 -Post Debridement (cm) - Depth 0.1 -Total Square (Post) (cm) 0.63 -Area of Debridement (cm) - Length 0.7 -Area of Debridement (cm) - Width 0.9 -Total Square (Area) (cm) 0.63 -Tunneling No -Undermining/Tunneling No -Circular Undermining No -Wound/Ulcer Outcome Not Healed -Ulcer Cleansing Rinsed/ Irrigated with Saline -Foul Odor after Cleansing No -Bioengineered Tissue No -Bleeding Controlled with Pressure -Treatment Response Procedure Tolerated Well -Offloading No -Debridement - Subq, 1st 20sq cm Yes Pain Scale: 0-10 Numeric Is Patient Pain Free? Yes - Nurse 3 - General Ulcer D/C NN Start: 02/27/24 09:10 Freq: Status: Active Protocol: Activity Type Activity Date Activity User E-sign Co-sign Detail Recorded Client Recorded Date Recorded By Document 02/27/24 09:22 KW z 02/27/24 09:25 KW Document 03/05/24 09:31 KW l 03/05/24 09:32 KW Document 03/12/24 09:40 KW ; 03/12/24 09:43 KW 02/27/24 03/05/24 03/12/24 09:22 09:31 09:40 Wound Care Center Nurse 3 1. LLE -Ulcer Cleansing Rinsed/ Irrigated with Saline -Foul Odor after Cleansing No -Primary Dressing Applied Mepilex Border, Mepilex Border, Silvercel Silvercel -Other Dressing hydrogel -Primary Dressing Covered/Secured with Dry Gauze, Secured with Tape -Mepilex Border 1 1 -Silvercel 1 1 Left -Tubular Bandage Double Layer Double Layer -Size of Tubigrip Used Size E Size E -Size E ($) 2 2 -Other PT OWN TUBIGRIP Treatment Response Procedure Tolerated Well Pain Scale: 0-10 Numeric Is Patient Pain Free? Yes Yes Yes WC - Visit Discharge Discharge Condition Stable Stable Ambulatory Status Ambulatory Ambulatory Transportation Private Auto Private Auto Medication Reconcilliation completed & No provided to patient/care provider Clinical Summary of Care Provided Yes Assessment/Plan Assessment/Plan (1) Venous insufficiency (chronic) (peripheral): CODE(S): I87.2 - Venous insufficiency (chronic) (peripheral) PLAN: Exam performed Wound decreased in size. No infection. Today left lower extremity wound was excisionally debrided down to including level of subcutaneous tissue of all nonviable tissue using 3 mm dermal curette. Topical anesthesia was used. Pre and postdebridement measurements documented nursing notes. Patient tolerated procedure well. Topical anesthesia used. Hemostasis obtained with light compression. Wound was flushed with copious amounts normal sterile saline, swab culture taken No additional antibiotics needed at this time Resolved stasis dermatitis- discontinued occlusive bordered foam, proceed with wound cleansing, application of triamcinolone ointment to periwound area, gauze, paper tape Significant wound improvement noted today. Patient to follow-up in 1 week (2) Non-pressure chronic ulcer of left ankle with fat layer exposed: CODE(S): L97.322 - Non-pressure chronic ulcer of left ankle with fat layer exposed (3) Stasis dermatitis of left lower extremity due to peripheral venous hypertension: CODE(S): I87.322 - Chronic venous hypertension (idiopathic) with inflammation of left lower extremity
[2024-03-26 09:15] VITALS: BP 163/77; PULSE 69; RESP 18; TEMP 35.9; BMI 31.7
--- NOTE | 2024-03-26 09:59 | PN.PCM_ITS ---
History of Present Illness Date of Service: 03/26/24 History of Wound: 72-year-old male has had a wound since May 2023. Patient was chopping firewood and had a few piece of wood fall onto his left leg. Patient suffered a laceration was seen in the emergency department at that time which they flushed and cleaned the wound and closed it primarily after updating his tetanus status. Patient subsequently had his sutures removed and developed a full-thickness ulceration to his left medial leg. Patient had been performing self-care with daily dressing changes and noticed no healing, therefore, he presents today. Patient has no obvious medical problems and is not currently on any long-term medications. Patient does have bilateral lower extremity swelling. 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 Patient notes some pain to the wound site. Patient has no other complaints. Objective Data Objective Data Vital Signs: Vital Signs Temp Pulse Resp BP O2 Del Method 96.6 F L 69 18 163/77 H Room Air 03/26/24 09:15 03/26/24 09:15 03/26/24 09:15 03/26/24 09:15 03/26/24 09:15 Oxygen Delivery Method Room Air Weight: 106.141 kg Body Mass Index (BMI) 31.7 Physical Exam Narrative Patient has palpable 2 out of 4 DP PT pulses to right lower extremity. Left lower extremity PT is palpable 2 out of 4. Dorsalis pedis is biphasic On Doppler examination. Patient has +1 pitting edema to bilateral lower extremity perimalleolar region with positive hemosiderin deposits and superficial varicosities. Patient has intact light touch protective sensation as well as deep tendon reflexes Achilles. No obvious clonus. Full-thickness wound noted to the medial left ankle along the course of the great saphenous vein with a stable granular base. Wound decreased in size. No overt signs of infection such as erythema malodor or purulent drainage warmth. There is some pain to the wound and periwound area. Musculoskeletal muscular strength full to bilateral lower extremity compartments. No wounds forming deformities noted. No sign DVT. Const alert and oriented x3 Debridement Note Debridement Note Post-Debridement Measurements and Additional Note: Post-Debridement Measurements/Treatment KIRSTY - Nurse 1 - General Ulcer Assessment Start: 02/27/24 09:10 Freq: Status: Active Protocol: LOWEXT Activity Type Activity Date Activity User E-sign Co-sign Detail Recorded Client Recorded Date Recorded By Document 02/27/24 09:10 [id number] [id number] 02/27/24 09:14 JF Document 03/05/24 09:09 KW l 03/05/24 09:16 KW Document 03/12/24 09:23 RB wound 03/12/24 09:25 RB Document 03/19/24 09:35 KW l 03/19/24 09:48 KW Document 03/26/24 09:15 KW gj 03/26/24 09:22 KW 02/27/24 03/05/24 03/12/24 09:10 09:09 09:23 WC - Today's Visit Information Type of service Follow-up Visit Follow-up Visit (Physician/SUPERVISOR SCRAP PREPARATION (Physician/SUPERVISOR SCRAP PREPARATION ) ) Arrival Mode Ambulatory Ambulatory Transfer Assistance None Patient Identification Verified (Name & Yes Yes ) Patient Requires Transmission-Based No No Precautions Height and Weight Body Mass Index (BMI) 31.7 31.7 31.7 BMI Classification Obese Obese Obese Vital Signs Temperature (97.8 F-99.1 F) 96.3 F L 96.4 F L 97.2 F L Temperature Source Temporal Temporal Temporal Pulse Rate (60-100) 77 68 63 Pulse Location Monitor Monitor Monitor Respiratory Rate (12-18) 16 16 18 Respiratory rate source Observation Monitor Observation Oxygen Delivery Method Room Air Blood Pressure (90/60-120/80) 136/62 H 139/61 H 160/62 H Blood Pressure Mean (mm Hg) 86 87 94 Source Monitor Monitor Monitor Position Semi-Fowlers Semi-Fowlers Semi-Fowlers Blood Pressure Location Left Arm Left Arm Left Arm History Since Last Visit- (Skip if this is Patient's initial visit) Have you changed medications since your No No No last visit? Any new allergies or adverse reactions No No No Had a fall/change in ADL's that may No No No increase risk of falls Signs or symptoms of abuse and/or No No No neglect since last visit Have you been in the hospital since your No No No last visit? Has dressing in place as prescribed Yes Yes Yes Has compression in place as prescribed Yes Yes Yes Has offloadiing in place as prescribed N/A N/A No Experienced any changes in pain level or No No No management Left Footwear Regular Shoe Regular Shoe Right Footwear Regular Shoe Regular Shoe Pain Scale: 0-10 Numeric Is Patient Pain Free? Yes Yes Yes 03/19/24 03/26/24 09:35 09:15 WC - Today's Visit Information Type of service Follow-up Visit Follow-up Visit (Physician/SUPERVISOR SCRAP PREPARATION (Physician/SUPERVISOR SCRAP PREPARATION ) ) Arrival Mode Ambulatory Ambulatory Transfer Assistance Patient Identification Verified (Name & Yes Yes ) Patient Requires Transmission-Based Precautions Height and Weight Body Mass Index (BMI) 31.7 31.7 BMI Classification Obese Obese Vital Signs Temperature (97.8 F-99.1 F) 97.1 F L 96.6 F L Temperature Source Temporal Temporal Pulse Rate (60-100) 73 69 Pulse Location Monitor Monitor Respiratory Rate (12-18) 18 18 Respiratory rate source Observation Observation Oxygen Delivery Method Room Air Room Air Blood Pressure (90/60-120/80) 130/81 H 163/77 H Blood Pressure Mean (mm Hg) 97 105 Source Monitor Monitor Position Sitting Semi-Fowlers Blood Pressure Location Left Arm Left Arm History Since Last Visit- (Skip if this is Patient's initial visit) Have you changed medications since your No No last visit? Any new allergies or adverse reactions No No Had a fall/change in ADL's that may No No increase risk of falls Signs or symptoms of abuse and/or No No neglect since last visit Have you been in the hospital since your No No last visit? Has dressing in place as prescribed Yes Yes Has compression in place as prescribed Yes Yes Has offloadiing in place as prescribed N/A N/A Experienced any changes in pain level or No No management Left Footwear Regular Shoe Regular Shoe Right Footwear Regular Shoe Regular Shoe Pain Scale: 0-10 Numeric Is Patient Pain Free? Yes Yes - Nurse 1 - General Ulcer Measurement Start: 02/27/24 09:10 Freq: Status: Active Protocol: Activity Type Activity Date Activity User E-sign Co-sign Detail Recorded Client Recorded Date Recorded By Document 02/27/24 09:10 JF [id number] 02/27/24 09:14 JF Document 03/05/24 09:09 KW l 03/05/24 09:16 KW Document 03/12/24 09:23 RB wound 03/12/24 09:25 RB Document 03/19/24 09:35 KW l 03/19/24 09:48 KW Document 03/26/24 09:15 KW gj 03/26/24 09:22 KW 02/27/24 03/05/24 03/12/24 09:10 09:09 09:23 Wound Center Nurse 1 1. LLE -Combined with other wound No No -Current Size (cm) - Length 1.1 1 1.1 -Current Size (cm) - Width 1.5 0.6 0.9 -Current Size (cm) - Depth 0.1 0.1 0.1 -Total Square Cm 1.65 0.6 0.99 -Date of Last Picture (Recall this field) -Photo Taken No Yes Yes -Epithelialization Medium 34-66% -Tunneling No No -Undermining/Tunneling No No -Circular Undermining No No -Exudate Amt Small Medium Medium -Exudate Type Serosanguineous Serosanguineous Serosanguineous -Wound Margin Flat & Intact Distinct, Distinct, Outline Outline Attached Attached -Granulation Amt Large (67-100%) Large (67-100%) Medium (34-66%) -Granulation Quality [place] -Slough/Fibrin Yes Yes -Necrosis Amt Small (1-33%) Small (1-33%) Medium (34-66%) -Necrotic Tissue Type Adherent Slough Adherent Slough Adherent Slough -Structure Exposed N/A N/A N/A -Texture (Astrid-wound Skin Appearance) Assessed, Scarring Assessed Scarring -Moisture (Astrid-wound Skin Appearance) Assessed,Dry/ No Abnormality Assessed Scaly -Color (Astrid-wound Skin Appearance) Assessed No Abnormality Hemosiderin Staining -Temperature (Astrid-wound Skin No Abnormality No Abnormality No Abnormality Appearance) (Pt Warm) (Pt Warm) (Pt Warm) -Tenderness on Palpation (Astrid-wound No No No Skin Appearance) -Ulcer Cleansing Rinsed/ Soap and Water Wound Cleanser Irrigated with Saline -Foul Odor after Cleansing No No No -Anesthetic Used 5% Lidocaine 5% Lidocaine 5% Lidocaine Gel Gel Gel Lower Limb Edema Present Yes Yes Left Calf (cm) 40.2 39.6 41 Left Ankle (cm) 23.8 22.3 23.5 03/19/24 03/26/24 09:35 09:15 Wound Center Nurse 1 1. LLE -Combined with other wound -Current Size (cm) - Length 0.9 0.5 -Current Size (cm) - Width 0.5 0.3 -Current Size (cm) - Depth 0.1 0.1 -Total Square Cm 0.45 0.15 -Date of Last Picture (Recall this 03/19/24 03/26/24 field) -Photo Taken -Epithelialization Large 67-100% Large 67-100% -Tunneling -Undermining/Tunneling -Circular Undermining -Exudate Amt Small None Present -Exudate Type Serosanguineous -Wound Margin Distinct, Distinct, Outline Outline Attached Attached -Granulation Amt Large (67-100%) Large (67-100%) -Granulation Quality Red Red -Slough/Fibrin -Necrosis Amt Small (1-33%) -Necrotic Tissue Type Adherent Slough -Structure Exposed -Texture (Astrid-wound Skin Appearance) Assessed Assessed, Scarring -Moisture (Astrid-wound Skin Appearance) Assessed Assessed -Color (Astrid-wound Skin Appearance) Not Assessed Assessed -Temperature (Astrid-wound Skin No Abnormality No Abnormality Appearance) (Pt Warm) (Pt Warm) -Tenderness on Palpation (Astrid-wound No No Skin Appearance) -Ulcer Cleansing Rinsed/ Rinsed/ Irrigated with Irrigated with Saline Saline -Foul Odor after Cleansing No No -Anesthetic Used 5% Lidocaine 5% Lidocaine Gel Gel Lower Limb Edema Present Left Calf (cm) 39.5 39.2 Left Ankle (cm) 24 24.5 WC - Nurse 2 - General Ulcer CM Notes Start: 02/27/24 09:10 Freq: Status: Active Protocol: Activity Type Activity Date Activity User E-sign Co-sign Detail Recorded Client Recorded Date Recorded By Document 02/27/24 09:17 [id number] 02/27/24 09:19 Document 03/05/24 09:26 0000 03/05/24 09:28 Document 03/12/24 09:28 [facility] [id number] 03/12/24 09:31 [facility] Document 03/19/24 10:12 0000 03/19/24 10:14 Document 03/26/24 09:35 0000 03/26/24 09:36 02/27/24 03/05/24 03/12/24 09:17 09:26 09:28 Wound Center Nurse 2 1. LLE -Time 09:18 09:26 09:29 -Correct Patient Yes Yes Yes -Correct Side, Site, Position Yes Yes Yes -Correct Procedure Yes Yes Yes -Procedure Performed Yes Yes Yes -Type of Procedure Debridement Debridement Debridement -Clinical Debridement Subcutaneous Subcutaneous Subcutaneous -Tissue Removed Muscle Subcutaneous Subcutaneous -Post Debridement (cm) - Length 1.2 1.4 1 -Post Debridement (cm) - Width 1.5 0.7 0.7 -Post Debridement (cm) - Depth 0.1 0.1 0.2 -Total Square (Post) (cm) 1.80 0.98 0.7 -Area of Debridement (cm) - Length 1.2 1.4 1 -Area of Debridement (cm) - Width 1.5 0.7 0.7 -Total Square (Area) (cm) 1.80 0.98 0.7 -Tunneling No No No -Undermining/Tunneling No No No -Circular Undermining No No No -Wound/Ulcer Outcome Not Healed Not Healed Not Healed -Ulcer Cleansing Rinsed/ Rinsed/ Rinsed/ Irrigated with Irrigated with Irrigated with Saline Saline Saline -Foul Odor after Cleansing No No No -Bioengineered Tissue No No No -Bleeding Controlled with Pressure Pressure Pressure -Treatment Response Procedure Procedure Procedure Tolerated Well Tolerated Well Tolerated Well -Offloading No No -Debridement - Subq, 1st 20sq cm Yes Yes Yes Pain Scale: 0-10 Numeric Is Patient Pain Free? Yes Yes Yes 03/19/24 03/26/24 10:12 09:35 Wound Center Nurse 2 1. LLE -Time 10:13 09:35 -Correct Patient Yes Yes -Correct Side, Site, Position Yes Yes -Correct Procedure Yes Yes -Procedure Performed Yes Yes -Type of Procedure Debridement Debridement -Clinical Debridement Subcutaneous Subcutaneous -Tissue Removed Subcutaneous Subcutaneous -Post Debridement (cm) - Length 0.7 0.7 -Post Debridement (cm) - Width 0.9 0.3 -Post Debridement (cm) - Depth 0.1 0.1 -Total Square (Post) (cm) 0.63 0.21 -Area of Debridement (cm) - Length 0.7 0.7 -Area of Debridement (cm) - Width 0.9 0.3 -Total Square (Area) (cm) 0.63 0.21 -Tunneling No No -Undermining/Tunneling No No -Circular Undermining No No -Wound/Ulcer Outcome Not Healed Not Healed -Ulcer Cleansing Rinsed/ Rinsed/ Irrigated with Irrigated with Saline Saline -Foul Odor after Cleansing No No -Bioengineered Tissue No No -Bleeding Controlled with Pressure Pressure -Treatment Response Procedure Procedure Tolerated Well Tolerated Well -Offloading No No -Debridement - Subq, 1st 20sq cm Yes Yes Pain Scale: 0-10 Numeric Is Patient Pain Free? Yes Yes - Nurse 3 - General Ulcer D/C NN Start: 02/27/24 09:10 Freq: Status: Active Protocol: Activity Type Activity Date Activity User E-sign Co-sign Detail Recorded Client Recorded Date Recorded By Document 02/27/24 09:22 KW z 02/27/24 09:25 KW Document 03/05/24 09:31 KW l 03/05/24 09:32 KW Document 03/12/24 09:40 KW ; 03/12/24 09:43 KW Document 03/19/24 10:25 DS 1 03/19/24 10:30 DS Document 03/26/24 09:46 KW gj 03/26/24 09:47 KW 02/27/24 03/05/24 03/12/24 09:22 09:31 09:40 Wound Care Center Nurse 3 1. LLE -Ulcer Cleansing Rinsed/ Irrigated with Saline -Foul Odor after Cleansing No -Primary Dressing Applied Mepilex Border, Mepilex Border, Silvercel Silvercel -Other Dressing hydrogel -Primary Dressing Covered/Secured with Dry Gauze, Secured with Tape -Mepilex Border 1 1 -Silvercel 1 1 Left -Tubular Bandage Double Layer Double Layer -Size of Tubigrip Used Size E Size E -Size E ($) 2 2 -Size F ($) -Other PT OWN TUBIGRIP Treatment Response Procedure Tolerated Well Pain Scale: 0-10 Numeric Is Patient Pain Free? Yes Yes Yes - Visit Discharge Discharge Condition Stable Stable Ambulatory Status Ambulatory Ambulatory Transportation Private Auto Private Auto Medication Reconcilliation completed & No provided to patient/care provider Clinical Summary of Care Provided Yes 03/19/24 03/26/24 10:25 09:46 Wound Care Center Nurse 3 1. LLE -Ulcer Cleansing Rinsed/ Irrigated with Saline -Foul Odor after Cleansing -Primary Dressing Applied Silvercel -Other Dressing silvercel from home -Primary Dressing Covered/Secured with Dry Gauze, Secured with Tape -Mepilex Border -Silvercel 1 Left -Tubular Bandage Double Layer Single Layer -Size of Tubigrip Used Size F Size E -Size E ($) 1 -Size F ($) 2 -Other Treatment Response Pain Scale: 0-10 Numeric Is Patient Pain Free? Yes Yes WC - Visit Discharge Discharge Condition Stable Ambulatory Status Ambulatory Transportation Private Auto Medication Reconcilliation completed & Yes provided to patient/care provider Clinical Summary of Care Provided Yes Assessment/Plan Assessment/Plan (1) Venous insufficiency (chronic) (peripheral): CODE(S): I87.2 - Venous insufficiency (chronic) (peripheral) PLAN: Exam performed Wound decreased in size. No infection. Today left lower extremity wound was excisionally debrided down to including level of subcutaneous tissue of all nonviable tissue using 3 mm dermal curette. Topical anesthesia was used. Pre and postdebridement measurements documented nursing notes. Patient tolerated procedure well. Topical anesthesia used. Hemostasis obtained with light compression. Wound was flushed with copious amounts normal sterile saline, swab culture taken No additional antibiotics needed at this time Resolved stasis dermatitis- discontinued occlusive bordered foam, proceed with wound cleansing, application of triamcinolone ointment to periwound area, gauze, paper tape Significant wound improvement noted today. Patient to follow-up in 1 week (2) Non-pressure chronic ulcer of left ankle with fat layer exposed: CODE(S): L97.322 - Non-pressure chronic ulcer of left ankle with fat layer exposed (3) Stasis dermatitis of left lower extremity due to peripheral venous hypertension: CODE(S): I87.322 - Chronic venous hypertension (idiopathic) with i nflammation of left lower extremity
--- NOTE | 2024-03-29 08:55 | WC ---
PHOTO 03/26/24 LT SO
== END 2024-03-27 23:59 | disposition home or self-care (01) ==
LOC: WC 09:15
PROVIDERS: PCP Family Medicine; Referring Provider Family Medicine; Visit Provider Podiatrist
DX: L97.322 Non-pressure chronic ulcer of left ankle with fat layer exposed (principal); S81.812S Laceration without foreign body, left lower leg, sequela; W20.8XXS Other cause of strike by thrown, projected or falling object, sequela; I87.322 Chronic venous hypertension (idiopathic) with inflammation of left lower extremity; I87.2 Venous insufficiency (chronic) (peripheral); Z79.899 Other long term (current) drug therapy
CPT/HCPCS: 11042

== ENCOUNTER 2024-04-09 09:15 | Outpatient (RCR) | payer MEDICARE, OTHER, SELFPAY ==
[2024-03-28 00:17] VITALS: BP 119/68; PULSE 72; RESP 18; TEMP 36.5; BMI 31.7
[2024-04-02 09:19] VITALS: BP 136/68; PULSE 61; RESP 18; TEMP 36.3; BMI 31.7
--- NOTE | 2024-04-02 11:22 | PN.PCM_ITS ---
History of Present Illness Date of Service: 04/02/24 Chief Complaint: left medial lower leg History of Wound: 72-year-old male has had a wound since May 2023. Patient was chopping firewood and had a few piece of wood fall onto his left leg. Patient suffered a laceration was seen in the emergency department at that time which they flushed and cleaned the wound and closed it primarily after updating his tetanus status. Patient subsequently had his sutures removed and developed a full-thickness ulceration to his left medial leg. Patient had been performing self-care with daily dressing changes and noticed no healing, therefore, he presents today. Patient has no obvious medical problems and is not currently on any long-term medications. Patient does have bilateral lower extremity swelling. 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 Patient notes some pain to the wound site. Patient has no other complaints. Progress of Wound: Courtesy visit for Dr. Forbes. Left medial lower leg is slightly smaller this week. Objective Data Objective Data Vital Signs: Vital Signs Temp Pulse Resp BP 97.3 F L 61 18 136/68 H 04/02/24 09:19 04/02/24 09:19 04/02/24 09:19 04/02/24 09:19 Weight: 234 lb Body Mass Index (BMI) 31.7 Charges/Coding Procedures Integumentary [id number]: [id number] Eloise subq tissue 20 sq cm/< Debridement Note Debridement Note Wound debrided: Medial lower leg ulcer Laterality: Left Type of Debridement: Excisional debridement Anesthesia Used: 5% Lidocaine Gel Depth: Down to and including healthy tissue and in the subcutaneous layer Percentage of wound debrided: 100 Instrument Used: 3mm curette Tissue Removed: Nonviable tissue and slough Severity: Fat Layer Exposed Amount of bleeding with debridement: Mild Bleeding Controlled with: Pressure and Compression and gauze Post-Debridement Measurements and Additional Note: Post-Debridement Measurements/Treatment - Nurse 1 - General Ulcer Assessment Start: 04/02/24 09:19 Freq: Status: Active Protocol: MIKAELA Activity Type Activity Date Activity User E-sign Co-sign Detail Recorded Client Recorded Date Recorded By Document 04/02/24 09:19 RB wound 04/02/24 09:21 RB 04/02/24 09:19 - Today's Visit Information Type of service Follow-up Visit (Physician/MEDICAL INSURANCE COLLECTOR ) Arrival Mode Ambulatory Transfer Assistance None Patient Identification Verified (Name & Yes ) Patient Requires Transmission-Based No Precautions Height and Weight Body Mass Index (BMI) 31.7 BMI Classification Obese Vital Signs Temperature (97.8 F-99.1 F) 97.3 F L Temperature Source Temporal Pulse Rate (60-100) 61 Pulse Location Monitor Respiratory Rate (12-18) 18 Respiratory rate source Observation Blood Pressure (90/60-120/80) 136/68 H Blood Pressure Mean (mm Hg) 90 Source Monitor Position Semi-Fowlers Blood Pressure Location Left Arm History Since Last Visit- (Skip if this is Patient's initial visit) Have you changed medications since your No last visit? Any new allergies or adverse reactions No Had a fall/change in ADL's that may No increase risk of falls Signs or symptoms of abuse and/or No neglect since last visit Have you been in the hospital since your No last visit? Has dressing in place as prescribed Yes Has compression in place as prescribed Yes Has offloadiing in place as prescribed No Experienced any changes in pain level or No management Pain Scale: 0-10 Numeric Is Patient Pain Free? Yes WC - Nurse 1 - General Ulcer Measurement Start: 04/02/24 09:19 Freq: Status: Active Protocol: Activity Type Activity Date Activity User E-sign Co-sign Detail Recorded Client Recorded Date Recorded By Document 04/02/24 09:19 RB wound 04/02/24 09:21 RB 04/02/24 09:19 Wound Center Nurse 1 1. LLE -Combined with other wound No -Current Size (cm) - Length 0.7 -Current Size (cm) - Width 0.9 -Current Size (cm) - Depth 0.1 -Total Square Cm 0.63 -Tunneling No -Undermining/Tunneling No -Circular Undermining No -Exudate Amt Medium -Exudate Type Serosanguineous -Wound Margin Distinct, Outline Attached -Granulation Amt Medium (34-66%) -Granulation Quality [place] -Slough/Fibrin Yes -Necrosis Amt Medium (34-66%) -Necrotic Tissue Type Adherent Slough -Structure Exposed N/A -Texture (Astrid-wound Skin Appearance) Assessed, Scarring -Moisture (Astrid-wound Skin Appearance) Assessed -Color (Astrid-wound Skin Appearance) Assessed -Temperature (Astrid-wound Skin No Abnormality Appearance) (Pt Warm) -Tenderness on Palpation (Astrid-wound No Skin Appearance) -Ulcer Cleansing Wound Cleanser -Foul Odor after Cleansing No -Anesthetic Used 5% Lidocaine Gel Lower Limb Edema Present Yes Left Calf (cm) 40.8 Left Ankle (cm) 23 WC - Nurse 2 - General Ulcer CM Notes Start: 04/02/24 09:19 Freq: Status: Active Protocol: Activity Type Activity Date Activity User E-sign Co-sign Detail Recorded Client Recorded Date Recorded By Document 04/02/24 09:53 JF 0000 04/02/24 09:53 JF 04/02/24 09:53 Wound Center Nurse 2 1. LLE -Time 09:53 -Correct Patient Yes -Correct Side, Site, Position Yes -Correct Procedure Yes -Procedure Performed Yes -Type of Procedure Debridement -Clinical Debridement Subcutaneous -Tissue Removed Subcutaneous -Post Debridement (cm) - Length 0.6 -Post Debridement (cm) - Width 0.3 -Post Debridement (cm) - Depth 0.1 -Total Square (Post) (cm) 0.18 -Area of Debridement (cm) - Length 0.6 -Area of Debridement (cm) - Width 0.3 -Total Square (Area) (cm) 0.18 -Tunneling No -Undermining/Tunneling No -Circular Undermining No -Wound/Ulcer Outcome Not Healed -Ulcer Cleansing Rinsed/ Irrigated with Saline -Foul Odor after Cleansing No -Bioengineered Tissue No -Bleeding Controlled with Pressure -Treatment Response Procedure Tolerated Well -Offloading No -Debridement - Subq, 1st 20sq cm Yes Pain Scale: 0-10 Numeric Is Patient Pain Free? Yes - Nurse 3 - General Ulcer D/C NN Start: 04/02/24 09:19 Freq: Status: Active Protocol: Activity Type Activity Date Activity User E-sign Co-sign Detail Recorded Client Recorded Date Recorded By Document 04/02/24 10:07 RB wound 04/02/24 10:16 RB 04/02/24 10:07 Wound Care Center Nurse 3 1. LLE -Ulcer Cleansing Rinsed/ Irrigated with Saline -Primary Dressing Applied Promogran Aurea Matter -Primary Dressing Covered/Secured with Dry Gauze, Secured with Tape -Promogran Aurea Matter 1 Left -Tubular Bandage Double Layer -Size of Tubigrip Used Size E -Size E ($) 2 Treatment Response Procedure Tolerated Well Pain Scale: 0-10 Numeric Is Patient Pain Free? Yes Teaching: Wound Center Dressing Your Wound -Person Taught Patient -Teaching Method Discussion, Demonstration -Response to teaching Verbalize Understanding WC - Visit Discharge Discharge Condition Stable Ambulatory Status Ambulatory Transportation Private Auto Medication Reconcilliation completed & No provided to patient/care provider Clinical Summary of Care Provided Yes Assessment/Plan Assessment/Plan (1) Non-pressure chronic ulcer of left ankle with fat layer exposed: CODE(S): L97.322 - Non-pressure chronic ulcer of left ankle with fat layer exposed (2) Venous insufficiency (chronic) (peripheral): CODE(S): I87.2 - Venous insufficiency (chronic) (peripheral) (3) Stasis dermatitis of left lower extremity due to peripheral venous hypertension: CODE(S): I87.322 - Chronic venous hypertension (idiopathic) with inflammation of left lower extremity PLAN: Plan Courtesy visit today for Dr. Forbes Wound care?moistened Aurea topped with gauze daily. Compression?double Tubigrip. Patient to follow-up in [address] Forbes.
[2024-04-09 09:19] VITALS: RESP 18; TEMP 36.3; BMI 31.7
[2024-04-09 09:22] VITALS: BP 161/93; PULSE 68; RESP 18; TEMP 36.3
--- NOTE | 2024-04-09 09:24 | PCM.WC.PN ---
History of Present Illness Date of Service: 04/09/24 Chief Complaint: left medial lower leg History of Wound: 72-year-old male has had a wound since May 2023. Patient was chopping firewood and had a few piece of wood fall onto his left leg. Patient suffered a laceration was seen in the emergency department at that time which they flushed and cleaned the wound and closed it primarily after updating his tetanus status. Patient subsequently had his sutures removed and developed a full-thickness ulceration to his left medial leg. Patient had been performing self-care with daily dressing changes and noticed no healing, therefore, he presents today. Patient has no obvious medical problems and is not currently on any long-term medications. Patient does have bilateral lower extremity swelling. 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 Patient notes some pain to the wound site. Patient has no other complaints. Progress of Wound: Courtesy visit for Dr. Forbes. Left medial lower leg is slightly smaller this week. Objective Data Objective Data Vital Signs: Vital Signs Temp Pulse Resp BP 97.4 F L 68 18 161/93 H 04/09/24 09:22 04/09/24 09:22 04/09/24 09:22 04/09/24 09:22 Weight: 106.141 kg Body Mass Index (BMI) 31.7 Physical Exam Narrative Patient has palpable 2 out of 4 DP PT pulses to right lower extremity. Left lower extremity PT is palpable 2 out of 4. Dorsalis pedis is biphasic On Doppler examination. Patient has +1 pitting edema to bilateral lower extremity perimalleolar region with positive hemosiderin deposits and superficial varicosities. Patient has intact light touch protective sensation as well as deep tendon reflexes Achilles. No obvious clonus. Wound healed left medial ankle. Musculoskeletal muscular strength full to bilateral lower extremity compartments. No wounds forming deformities noted. No sign DVT. Const alert and oriented x3 Debridement Note Debridement Note Post-Debridement Measurements and Additional Note: Post-Debridement Measurements/Treatment WC - Nurse 1 - General Ulcer Assessment Start: 04/02/24 09:19 Freq: Status: Active Protocol: KIRSTY.LOWEXT Activity Type Activity Date Activity User E-sign Co-sign Detail Recorded Client Recorded Date Recorded By Document 04/02/24 09:19 RB wound 04/02/24 09:21 RB Document 04/09/24 09:19 JF 0000 04/09/24 09:21 JF 04/02/24 04/09/24 09:19 09:19 WC - Today's Visit Information Type of service Follow-up Visit Follow-up Visit (Physician/ENTRY LEVEL PROJECT COORDINATOR (Physician/ENTRY LEVEL PROJECT COORDINATOR ) ) Arrival Mode Ambulatory Ambulatory Transfer Assistance None Patient Identification Verified (Name & Yes No ) Patient Requires Transmission-Based No No Precautions Height and Weight Body Mass Index (BMI) 31.7 31.7 BMI Classification Obese Obese Vital Signs Temperature (97.8 F-99.1 F) 97.3 F L 97.4 F L Temperature Source Temporal Temporal Pulse Rate (60-100) 61 Pulse Location Monitor Respiratory Rate (12-18) 18 18 Respiratory rate source Observation Observation Blood Pressure (90/60-120/80) 136/68 H Blood Pressure Mean (mm Hg) 90 Source Monitor Position Semi-Fowlers Blood Pressure Location Left Arm History Since Last Visit- (Skip if this is Patient's initial visit) Have you changed medications since your No No last visit? Any new allergies or adverse reactions No No Had a fall/change in ADL's that may No No increase risk of falls Signs or symptoms of abuse and/or No No neglect since last visit Have you been in the hospital since your No No last visit? Has dressing in place as prescribed Yes Yes Has compression in place as prescribed Yes Yes Has offloadiing in place as prescribed No N/A Experienced any changes in pain level or No No management Left Footwear Regular Shoe Right Footwear Regular Shoe Pain Scale: 0-10 Numeric Is Patient Pain Free? Yes Yes - Nurse 1 - General Ulcer Measurement Start: 04/02/24 09:19 Freq: Status: Active Protocol: Activity Type Activity Date Activity User E-sign Co-sign Detail Recorded Client Recorded Date Recorded By Document 04/02/24 09:19 RB wound 04/02/24 09:21 RB Document 04/09/24 09:19 JF 0000 04/09/24 09:21 JF 04/02/24 04/09/24 09:19 09:19 Wound Center Nurse 1 1. LLE -Combined with other wound No No -Current Size (cm) - Length 0.7 0 -Current Size (cm) - Width 0.9 0 -Current Size (cm) - Depth 0.1 0 -Total Square Cm 0.63 0 -Epithelialization Large 67-100% -Tunneling No -Undermining/Tunneling No -Circular Undermining No -Exudate Amt Medium -Exudate Type Serosanguineous -Wound Margin Distinct, Outline Attached -Granulation Amt Medium (34-66%) -Granulation Quality Frankewing -Slough/Fibrin Yes -Necrosis Amt Medium (34-66%) -Necrotic Tissue Type Adherent Slough -Structure Exposed N/A -Texture (Astrid-wound Skin Appearance) Assessed, Scarring -Moisture (Astrid-wound Skin Appearance) Assessed -Color (Astrid-wound Skin Appearance) Assessed -Temperature (Astrid-wound Skin No Abnormality Appearance) (Pt Warm) -Tenderness on Palpation (Astrid-wound No Skin Appearance) -Ulcer Cleansing Wound Cleanser -Foul Odor after Cleansing No -Anesthetic Used 5% Lidocaine Gel Lower Limb Edema Present Yes NA Left Calf (cm) 40.8 Left Ankle (cm) 23 WC - Nurse 2 - General Ulcer CM Notes Start: 04/02/24 09:19 Freq: Status: Active Protocol: Activity Type Activity Date Activity User E-sign Co-sign Detail Recorded Client Recorded Date Recorded By Document 04/02/24 09:53 0000 04/02/24 09:53 Document 04/09/24 09:21 0000 04/09/24 09:22 04/02/24 04/09/24 09:53 09:21 Wound Center Nurse 2 1. LLE -Time 09:53 -Correct Patient Yes No -Correct Side, Site, Position Yes No -Correct Procedure Yes No -Procedure Performed Yes No -Type of Procedure Debridement -Clinical Debridement Subcutaneous -Tissue Removed Subcutaneous -Post Debridement (cm) - Length 0.6 0 -Post Debridement (cm) - Width 0.3 0 -Post Debridement (cm) - Depth 0.1 0 -Total Square (Post) (cm) 0.18 0 -Area of Debridement (cm) - Length 0.6 0 -Area of Debridement (cm) - Width 0.3 0 -Total Square (Area) (cm) 0.18 0 -Tunneling No -Undermining/Tunneling No -Circular Undermining No -Wound/Ulcer Outcome Not Healed Healed- Epithelialized -Ulcer Cleansing Rinsed/ Irrigated with Saline -Foul Odor after Cleansing No -Bioengineered Tissue No -Bleeding Controlled with Pressure -Treatment Response Procedure Tolerated Well -Offloading No -Debridement - Subq, 1st 20sq cm Yes Pain Scale: 0-10 Numeric Is Patient Pain Free? Yes Yes - Nurse 3 - General Ulcer D/C NN Start: 04/02/24 09:19 Freq: Status: Active Protocol: Activity Type Activity Date Activity User E-sign Co-sign Detail Recorded Client Recorded Date Recorded By Document 04/02/24 10:07 RB wound 04/02/24 10:16 RB Document 04/09/24 09:22 JF 0000 04/09/24 09:22 JF Edit Result 04/09/24 09:22 JF (1) 0000 04/09/24 09:22 JF (1) Temperature (97.8 F-99.1 F) => 97.4 F L Temperature Source => Temporal Pulse Rate (60-100) => 68 Pulse Location => Monitor Respiratory Rate (12-18) => 18 Respiratory rate source => Observation Blood Pressure (90/60-120/80) => 161/93 H Blood Pressure Mean (mm Hg) => 115 Source => Monitor Position => Semi-Fowlers Blood Pressure Location => Right Arm 04/02/24 04/09/24 10:07 09:22 Wound Care Center Nurse 3 1. LLE -Ulcer Cleansing Rinsed/ Irrigated with Saline -Primary Dressing Applied Promogran Aurea Matter -Primary Dressing Covered/Secured with Dry Gauze, Secured with Tape -Promogran Aurea Matter 1 Left -Tubular Bandage Double Layer -Size of Tubigrip Used Size E -Size E ($) 2 Treatment Response Procedure Tolerated Well Vital Signs Temperature (97.8 F-99.1 F) 97.4 F L Temperature Source Temporal Pulse Rate (60-100) 68 Pulse Location Monitor Respiratory Rate (12-18) 18 Respiratory rate source Observation Blood Pressure (90/60-120/80) 161/93 H Blood Pressure Mean (mm Hg) 115 Source Monitor Position Semi-Fowlers Blood Pressure Location Right Arm Pain Scale: 0-10 Numeric Is Patient Pain Free? Yes Yes Teaching: Wound Center Dressing Your Wound -Person Taught Patient -Teaching Method Discussion, Demonstration -Response to teaching Verbalize Understanding WC - Visit Discharge Discharge Condition Stable Stable Ambulatory Status Ambulatory Ambulatory Transportation Private Auto Private Auto Medication Reconcilliation completed & No Yes provided to patient/care provider Clinical Summary of Care Provided Yes Yes Assessment/Plan Assessment/Plan (1) Venous insufficiency (chronic) (peripheral): CODE(S): I87.2 - Venous insufficiency (chronic) (peripheral) PLAN: Exam performed Wound healed left medial ankle. Recommend compression stockings 20 to 30 mmHg graduated compression. Follow-up in outpatient setting for nail care every 9 weeks. (2) Non-pressure chronic ulcer of left ankle with fat layer exposed: CODE(S): L97.322 - Non-pressure chronic ulcer of left ankle with fat layer exposed (3) Stasis dermatitis of left lower extremity due to peripheral venous hypertension: CODE(S): I87.322 - Chronic venous hypertension (idiopathic) with inflammation of left lower extremity
--- NOTE | 2024-04-18 11:52 | WC ---
PHOTO 04/09/24 LEFT LEG(H)
== END 2024-04-09 12:55 | disposition home or self-care (01) ==
LOC: WC 09:15
PROVIDERS: PCP Family Medicine; Referring Provider Family Medicine; Visit Provider Podiatrist
DX: L97.322 Non-pressure chronic ulcer of left ankle with fat layer exposed (principal); R60.0 Localized edema; I87.322 Chronic venous hypertension (idiopathic) with inflammation of left lower extremity; S81.812S Laceration without foreign body, left lower leg, sequela; W20.8XXS Other cause of strike by thrown, projected or falling object, sequela; I87.2 Venous insufficiency (chronic) (peripheral); Z79.899 Other long term (current) drug therapy
CPT/HCPCS: 11042; 99213; G0463

== ENCOUNTER → 2024-06-17 | Outpatient (CLI) | payer MEDICARE, OTHER, SELFPAY ==
--- NOTE | 2024-06-17 12:46 | ECHOD_ITS ---
Reason For Study: ADRIAN, PHTN Procedure This was a 2D Doppler, Color Flow transthoracic echocardiogram. Exam performed in department. Left Ventricle Normal LV size. Mild concentric left ventricular hypertrophy. The left ventricular ejection fraction is 55 %. Stage 1 diastolic dysfunction. No regional wall motion abnormalities noted. Right Ventricle Normal RV size. Normal systolic function. Atria The left atrium is mildly enlarged. Normal right atrium. Mitral Valve Normal mitral valve. Tricuspid Valve Normal tricuspid valve. Mild (1+) tricuspid valve insufficiency. Pulmonary artery systolic pressure is 40 mmHg. Aortic Valve Trisinus/trileaflet aortic valve. Pulmonic Valve Normal pulmonic valve. Great Vessels Normal aortic root. The pulmonary artery is normal size. Inferior vena cava collapse with respiration. Pericardium/Pleural No pericardial effusion. MMode/2D Measurements & Calculations LVIDd: 5.4 cm IVSd: 1.4 cm LVOT diam: 2.3 cm LVIDs: 4.1 cm LVPWd: 1.3 cm LVOT area: 4.2 cm2 RVDd: 3.7 cm FS: 23.2 % LA dimension: 3.6 cm asc Aorta Diam: 3.4 cm LAV(MOD-bp): 69.1 ml LAV(MOD-bp) Indexed: 30.3 ml/m2 LAV(MOD-sp2): 64.7 ml LAV(MOD-sp4): 67.8 ml SV(MOD-sp4): 49.5 ml SV(sp4-el): 54.3 ml LVAd ap4: 31.8 cm2 LVLd ap4: 8.8 cm EDV(MOD-sp4): 100.1 ml EDV(sp4-el): 97.6 ml LVAs ap4: 19.7 cm2 LVLs ap4: 7.6 cm ESV(MOD-sp4): 50.6 ml ESV(sp4-el): 43.3 ml EF(MOD-sp4): 49.4 % EF(sp4-el): 55.6 % LA A4 area: 23.5 cm2 RA A4 area: 20.8 cm2 TAPSE: 2.2 cm Time Measurements MV dec time: 0.22 sec Doppler Measurements & Calculations MV E max lucas: 55.6 cm/sec Lat Peak E' Lucas: 10.6 cm/sec Med Peak E' Lucas: 7.9 cm/sec MV A max lucas: 86.0 cm/sec E/E' lat: 5.3 E/E' med: 7.0 MV E/A: 0.65 MV V2 max: 75.4 cm/sec MV P1/2t max lucas: 52.8 cm/sec Ao V2 max: 139.0 cm/sec MV max P.3 mmHg MV P1/2t: 74.3 msec Ao max P.7 mmHg MV V2 mean: 35.3 cm/sec Ao V2 mean: 90.6 cm/sec MV mean P.61 mmHg MV dec slope: 208.2 cm/sec2 Ao mean P.8 mmHg MV V2 VTI: 24.8 cm MVA(P1/2t): 3.0 cm2 Ao V2 VTI: 25.9 cm AV (velocity ratio): 0.82 MVA(VTI): 3.5 cm2 STEVE(I,D): 3.4 cm2 STEVE(V,D): 3.4 cm2 LV V1 max: 113.5 cm/sec SV(LVOT): 88.1 ml PA V2 max: 92.6 cm/sec LV V1 max P.2 mmHg PA max PG (full): 1.8 mmHg LV V1 mean P.2 mmHg LV V1 mean: 67.4 cm/sec LV V1 VTI: 21.1 cm TR max lucas: 302.3 cm/sec TR max P.6 mmHg ECHO/Echo Complete Interpretation Summary The left ventricular ejection fraction is 55 %. Normal LV size. Stage 1 diastolic dysfunction. Mild concentric left ventricular hypertrophy. Mild (1+) tricuspid valve insufficiency. Pulmonary artery systolic pressure is 40 mmHg. Ordering Physician: Bertin Lantigua Referring Physician: Bertin Lantigua Performed By: Matheus Ramírez and Student
== END | disposition home or self-care (01) ==
LOC: CVS 12:45
PROVIDERS: PCP Family Medicine; Referring Provider Family Medicine; Visit Provider Family Medicine
DX: R06.09 Other forms of dyspnea (principal); I27.20 Pulmonary hypertension, unspecified
CPT/HCPCS: 93306

== ENCOUNTER 2024-09-03 07:57 | Emergency (ER) | payer MEDICARE, OTHER, SELFPAY ==
[2024-09-03 07:57] VITALS: BP 116/73; PULSE 96; RESP 20; TEMP 36.3; O2SAT 98; BMI 31.5
--- NOTE | 2024-09-03 08:14 | EX.ED.UPPERE ---
HPI History of Present Illness Chief Complaint: Fall Narrative Narrative: 73-year-old male who denies significant past medical history, presents with injury to his right hand that he sustained this morning after a fall. 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 However, he had not turned on the lights. He states that as he was coming around to turn on the lights he caught his foot on the front end of the front screen printing loader unloader, and tumbled forward. He fell onto his right hand and sustained a laceration across his palm. He states while he hit his head and broke his glasses and sustained superficial abrasions to his right cheek, he denies any neck pain or loss of consciousness. He has been able to ambulate afterwards, and even took a shower. Additionally, he and his states that he sustained abrasions to his right elbow and right knee, but their main concern is the laceration on the palm of his hand. He is right-hand dominant, and states that he prefers not to have sutures because he is always working with his right hand, but presents for evaluation. [facility] Medical History Gastric reflux Wears hearing aid Wears glasses Cancer Alcohol use Walker as ambulation aid Ambulates with cane Arthritis Pulmonary embolism Restless legs Back pain History of IBS Former smoker Shortness of breath on exertion History of edema History of echocardiogram Hx of skin cancer, basal cell Bronchiectasis COVID-19 Home Medications ?Medication ?Instructions ?Recorded ?Last Taken ?Type albuterol sulfate 90 mcg/actuation 1 - 2 puff IH DAILY PRN SOB 10/19/16 08/01/22 History aerosol inhaler (Proventil HFA) budesonide-formoterol HFA 160 1 puff inhalation BID breathing 10/19/16 08/01/22 History mcg-4.5 mcg/actuation aerosol inhaler (Symbicort) guaifenesin 1,200 mg tablet, 1,200 mg PO BID 06/20/22 Unknown History extended release 12 hr (Mucinex) meloxicam 15 mg tablet 15 mg PO DAILY 06/20/22 Unknown History acetaminophen 500 mg tablet 1,000 mg (2 x 500 mg) PO Q8 30 12/06/22 Unknown Rx days #180 tabs ascorbic acid (vitamin C) 1,000 mg 1,000 mg PO DAILY 10/03/23 Unknown History tablet,extended release (C Complex) cholecalciferol (vitamin D3) 325 325 mcg PO QWEEK 10/03/23 Unknown History mcg (13,000 unit) capsule cyanocobalamin (vitamin B-12) 1,000 mcg PO DAILY 10/03/23 Unknown History 1,000 mcg tablet (Vitamin B-12) ferrous sulfate 325 mg (65 mg 325 mg PO DAILY 10/03/23 Unknown History iron) tablet (FeroSul) diphenhydramine HCl 50 mg capsule 50 mg PO BID PRN 01/24/24 Unknown History Allergy/AdvReac Type Severity Reaction Status Date / Time gabapentin Allergy Rash Verified 09/03/24 08:00 Family History Other Colon cancer Heart disease Surgical History Hx of colonoscopy History of hydrocelectomy History of back surgery History of hip surgery Social History Smoking Status: Former smoker ROS ROS ED ROS Narrative Focused review of systems positive for laceration on palm of right hand. Minimal hand pain. Multiple abrasions to various sites including right cheek, right elbow, and right knee. No prodromal chest pain or shortness of breath. No neck pain. No loss of consciousness. States mainly here for laceration of palm. EXAM Physical Exam Narrative Exam Narrative: GCS 15. ABCs are intact. Neck soft and supple with full range of motion. Cardiovascular examination regular rate and rhythm. Lungs are clear to auscultation bilaterally. Abdomen soft. Inspection of the right hand does reveal a 6 cm laceration across the crease of his palm in the middle, no active bleeding. It appears subcutaneous. No bony tenderness. No visualized tendon through range of motion of fingers. Palpable radial pulse. No wrist pain. Capillary refill less than 2 seconds to fingertips. Able to oppose thumb. Multiple small superficial abrasions to right cheek, no active bleeding. Const Vital Signs: 09/03/24 07:57 Temperature 97.3 F L Temperature Source Temporal Pulse Rate 96 Respiratory Rate 20 H Blood Pressure 116/73 Blood Pressure Mean 87 Pulse Ox 98 Oxygen Delivery Method Room Air MDM MDM MDM Narrative Medical decision making narrative: I will feel differential diagnosis is applicable as he presents for laceration. However, given the blunt force trauma x-rays will be obtained to rule out underlying fracture/open fracture. I reviewed his EMR and his last tetanus immunization was in 2022, within the last 5 years. Patient was given Tylenol for analgesia. I do not feel CT imaging of the brain is indicated as he has a normal neurological examination and he merely sustained very superficial abrasions to his right cheek. X-rays of the right hand interpreted by myself independently show no evidence of acute fracture. I reviewed the radiology report which states there is no acute fracture but does mention widening of the scapholunate joint, and sclerosis near the ulnar lunate joint consistent with impaction syndrome. See procedure note for wound closure. He was informed of the risk of scarring and infection and acknowledges an understanding. Given the x-ray results, I did discuss patient with Dr. Diomedes Hemphill who agrees with a Velcro thumb spica splint and follow-up in the hand clinic next week. I feel he can be discharged safely home with follow-up. Return instructions to the emergency department were reviewed. Disposition is discharged home in stable condition. History & Record Review Discussion w/independent historian: Patient and Family Management Discussion w/another healthcare provider: Lap Polisher Procedures Lacerations Right palm laceration: Length: 2.36 in Depth: Sub Q Shape: Linear Prep: Sterile Conditions Number of Sutures/[place]: 12 Suture Information: Ethilon, Horizontal and 4-0 Discharge Plan Triage Chief Complaint: Fall ED Provider: Otoniel Ashraf Dx/Rx/DC Orders Clinical Impression: Hand laceration, Fall Instructions: ED Laceration, Hand: All Closures Prescriptions: No Action albuterol sulfate [Proventil HFA] 6.7 GM HFA aerosol inhaler 1 - 2 puff IH DAILY PRN (Reason: SOB) budesonide-formoterol [Symbicort] 1 INHALER inhaler 1 puff inhalation BID meloxicam 15 mg tablet 15 mg PO DAILY Patient Comments: TAKE 1 TABLET BY MOUTH ONCE DAILY WITH FOOD guaifenesin [Mucinex] 1,200 mg Tablet Extended Release 12hr 1,200 mg PO BID acetaminophen 500 mg Tablet 1,000 mg PO Q8 30 Days Qty: 180 0RF ferrous sulfate [FeroSul] 325 mg (65 mg iron) tablet 325 mg PO DAILY C Complex 1,000 mg tablet extended release 1,000 mg PO DAILY cyanocobalamin (vitamin B-12) [Vitamin B-12] 1,000 mcg tablet 1,000 mcg PO DAILY cholecalciferol (vitamin D3) 325 mcg (13,000 unit) capsule 325 mcg PO QWEEK Primary Care Provider: Bertin Lantigua Referrals: Bertin Lantigua MD [Primary Care Provider] - Diomedes Hemphill MD [Med Staff - Active Staff] - 09/10/24 Activity Restrictions/Additional Instructions: Follow-up with Dr. Hemphill in the hand clinic a week from now. He can also check the wound on your palm. Wear your splint for support. Return to the emergency department with increased redness of wound, drainage of pus, fever, red streak up your arm, new or worsening symptoms. Print Language: Yakut Disposition Disposition: Home, Self Care
--- NOTE | 2024-09-03 08:18 | RAD_ITS ---
STUDY: X-RAY - RIGHT HAND REASON FOR EXAM: Male, 73 years old. Trauma. TECHNIQUE: 3 views of the right hand. COMPARISON: None. FINDINGS: There is joint space narrowing of the radiocarpal articulation consistent with degenerative arthrosis. There is narrowing of the ulnolunate joint with sclerosis in the distal ulna, suggestive of ulnolunate impaction syndrome. There is a 2 mm ossific structure distal to the ulnar styloid, probably the sequelae of an old avulsion/fracture. There is chondrocalcinosis of the triangular fibrocartilage. Intact visualized carpal bones. There is widening of the scapholunate interval, measuring 6 mm in width. Normal carpometacarpal articulation of the thumb. Normal second through fifth carpometacarpal joints. Normal metacarpi. Normal interphalangeal joint of the thumb. Normal proximal and distal phalanges of the thumb. There is degenerative arthrosis of the first through third MCP joints. There is degenerative arthrosis of the interphalangeal joint of the thumb as well as second through fifth PIP and DIP joints. Intact phalanges of the second through fifth fingers. There is soft tissue swelling along the dorsum of the hand. RAD/Hand Min 3 Views IMPRESSION: Degenerative arthrosis, as detailed above. Narrowing of the ulnolunate joint with sclerosis in the distal ulna, suggestive of ulnolunate impaction syndrome. 2 mm ossific structure distal to the ulnar styloid, probably the sequelae of an old avulsion/fracture. 6 mm widening of the scapholunate interval. Soft tissue swelling along the dorsum of the hand. Electronically Signed: Deep Gayle MD at 8:36 EST ,
[2024-09-03] MEDS: Lidocaine 1% (20 ml mdv) 20 ML Vial INFILT (08:21)
[2024-09-03] MEDS: Acetaminophen 325 MG Tablet 650 MG PO (08:21)
== END 2024-09-03 09:44 | disposition home or self-care (01) ==
PROVIDERS: Emergency Provider Emergency Medicine; PCP Family Medicine; Visit Provider Emergency Medicine
DX: S61.411A Laceration without foreign body of right hand, initial encounter (principal); S00.81XA Abrasion of other part of head, initial encounter; S50.311A Abrasion of right elbow, initial encounter; S80.211A Abrasion, right knee, initial encounter; W18.09XA Striking against other object with subsequent fall, initial encounter; Y92.59 Other trade areas as the place of occurrence of the external cause; Z79.899 Other long term (current) drug therapy; Z87.891 Personal history of nicotine dependence
CPT/HCPCS: 12002; 73130; 99283

== ENCOUNTER → 2024-11-26 | Outpatient (CLI) | payer MEDICARE, OTHER, SELFPAY | END | disposition home or self-care (01) | LOC: LABSPEC 17:21 | PROVIDERS: PCP Family Medicine; Visit Provider Family Medicine | DX: L97.212 Non-pressure chronic ulcer of right calf with fat layer exposed (principal) | CPT/HCPCS: 87070; 87077; 87186; 87205 ==

== ENCOUNTER → 2025-01-29 | Outpatient (CLI) | payer MEDICARE, OTHER, SELFPAY ==
[2025-01-29 18:03] LABS: Absolute Lymphocyte Count 1.99 X10^3/uL (0.83-4.51); Basophil# 0.04 X10^3/uL; Basophil% 0.5 % (0-1); Eosinophil# 0.14 X10^3/uL; Eosinophils% 1.8 % (0-5); Hematocrit 38.5 % (40-54); Hemoglobin 12.2 g/dL (13.0-16.5); Lymphocyte # 1.99 X10^3/ul (0.83-4.51); Lymphocyte % 25.5 % (19-41); Mean Corp Hgb Conc 31.7 g/dL (32-36); Mean Corpuscular Hgb 26.6 pg (27.0-32.0); Mean Corpuscular Volume 83.9 fL (80-94); Mean Platelet Vol. 10.6 fl (6.2-12.0); Monocyte# 0.55 X10^3/uL; Monocyte% 7.1 % (0-10); NRBC Flagged by Analyzer 0 % (0-5); Neutrophil # 5.04 X10^3/uL (2.7-7.7); Neutrophil % 64.6 % (47-70); Platelet Count 204 K/mm3 (150-450); RBC Distribution Width CV 13.8 % (11.6-14.6); RBC Distribution Width SD 42.5 fl (35.1-43.9); Red Blood Count 4.59 M/mm3 (4.6-6.2); White Blood Count 7.8 K/mm3 (4.4-11.0)
[2025-01-29 18:25] LABS: ALB/GLOB Ratio 1.6 RATIO (0.9-2.4); AST(SGOT) 26 U/L (<=37); Alanine Aminotransfer ALT/SGPT 16 U/L (<=46); Albumin, Serum 4.2 g/dL (3.4-4.8); Alkaline Phosphatase 87 U/L (40-129); Anion Gap 11 (5-15); BUN 17 mg/dL (4-19); BUN/Creat Ratio 15.3 RATIO (10-20); Calcium,Total 9.1 mg/dL (7.6-11.0); Carbon Dioxide 23.6 mmol/L (21.0-32.0); Chloride 103 mmol/L (98-108); Creatinine, Serum 1.08 mg/dL (0.70-1.20); EST Glomerular Filtration Rate 72 (>60); Globulin 2.6 g/dL (2.2-4.2); Glucose 140 mg/dL (70-99); Potassium 4.3 mmol/L (3.3-5.1); Protein, Total 6.8 g/dL (5.9-8.4); Sodium Level 138 mmol/L (133-145); Total Bilirubin 0.43 mg/dL (0.00-1.30)
[2025-01-29 21:14] LABS: Microalbumin,Random Urine 13.2 mg/L (NO RANGE EST.); Microalbumin:Creatinine Ratio 70.2 mg/g CRE
--- OUTSIDE RECORDS SUMMARY | 2025-01-29 21:54 | XMS RPT_ITS | CCD ---
Author Organization [facility] Care Team Providers Care Associate Of Science In Nursing Name Role Phone Dr. Katlyn Lantigua Primary Care Provider Dr. Sharan Madrid Attending Provider Dr. Des Sellers Referring Provider KATLYN LANTIGUA Primary Care Unavailable JOSSIE PACKER Referring Unavailable KATLYN LANTIGUA Primary Care Unavailable Dr. Katlyn Lantigua Primary Care Provider [phone] Dr. Sharan Madrid Attending Provider [phone] Dr. Des Sellers Referring Provider Dr. Katlyn Lantigua Primary Care Provider Dr. Katlyn Lozano Attending Provider Dr. Katlyn Lozano Referring Provider Katlyn Lantigua MD Primary Care Provider [phone] Dr. Katlyn Lantigua MD Primary Care Provider Otoniel Ashraf MD Attending Provider Otoniel Ashraf MD Emergency Provider Dr. Katlyn Lantigua MD Referring Provider Dr. Diomedes Hemphill MD Attending Provider Dr. Katlyn Lantigua MD Attending Provider Katlyn Lantigua Primary Care Unavailable Katlyn Lantigua Attending Unavailable Otoniel Ashraf Attending Unavailable Grzegorz, Katlyn Primary Care Unavailable Katlyn Lantigua Referring Unavailable Grzegorz, Katlyn Primary Care Unavailable Nick Forbes Attending Unavailable Grzegorz, Katlyn Referring Unavailable Grzegorz, Katlyn Primary Care Unavailable Nick Forbes Attending Unavailable Grzegorz, Katlyn Referring Unavailable Grzegorz, Katlyn Primary Care Unavailable Nick Forbes Attending Unavailable Lantigua, Katlyn Referring Unavailable Lantigua, Katlyn Primary Care Unavailable Diomedes Hemphill Attending Unavailable Lantigua, Katlyn Referring Unavailable Lantigua, Katlyn Primary Care Unavailable Katlyn Lozano Attending Unavailable Negro Balderas Attending Unavailable Lantigua, Katlyn Primary Care Unavailable Consuelo AUTOMOTIVE BRAKE TECHNICIAN, Opal Baig Attending Unavailgopal baig Lantigua, Katlyn Primary Care Unavailable Nikc Forbes Consulting Unavailable Nick Forbes Referring Unavailable Lantigua, Katlyn Referring Unavailable Lantigua, Katlyn Primary Care Unavailable Diomedes Hemphill Attending Unavailable Lantigua, Katlyn Primary Care Unavailable Nick Forbes Attending Unavailable Lantigua, Katlyn Referring Unavailable Lantigua, Katlyn Primary Care Unavailable Nick Forbes Attending Unavailable Lantigua, Katlyn Referring Unavailable Lantigua, Katlyn Primary Care Unavailable Lantigua, Katlyn Attending Unavailable Lantigua, Katlyn Referring Unavailable Allergies Allergy Classification Reported Allergen(s) Allergy Type Date of Onset Reaction(s) Facility (16 sources) gabapentin; Translations: [GABAPENTIN] Drug Allergy 10-19-2016 [facility] Repository (1 source) gabapentin Drug Allergy 09-17-2024 [facility] Repository Medications Current Medications Medication Drug Class(es) Dates Sig (Normalized) Sig (Original) acetaminophen 500 mg oral tablet (20 sources) Start: 08-02-2022 take 2 tablets by mouth every eight hours Acetaminophen 500 mg Tablet Active 1000 mg PO EVERY 8 HOURS 180 August 02, 2022 1:00am Start: 08-02-2022 take 1000 mg by mout h every eight hours Acetaminophen Active 1000 MG PO EVERY 8 HOURS 180 August 02, 2022 1:00am Start: 06-20-2022 End: 08-02-2022 take 1 tablet by mouth twice daily Acetaminophen 650 mg Tablet Discontinued 650 mg PO TWICE A DAY June 20, 2022 12:00am August 02, 2022 9:02am Start: 10-19-2016 End: 11-02-2016 take 500-1000 mg by mouth every six hours as needed for pain Acetaminophen 500 MG tablet Discontinued 500 - 1000 mg PO EVERY 6 HOURS NEEDED as needed for Pain October 19, 2016 1:00am November 02, 2016 3:22pm acetaminophen 21.7 mg/ml / dextromethorphan hydrobromide 0.667 mg/ml / guaiFENesin 13.3 mg/ml / phenylephrine hydrochloride 0.333 mg/ml oral solution (3 sources) Uncompetitive M-ynbrug-C-aspartate Receptor Antagonist, Sigma-1 Agonist, alpha-1 Adrenergic Agonist Start: 10-19-2016 Ofnbmscrm-Ke-Ixdsyvmn-Guaife n (Severe Cold And Flu (Pe)) 355 ML liquid Active 355 ML PO NEEDED October 19, 2016 4:14pm Albuterol Sulfate (15 sources) beta2-Adrenergic Agonist Start: 10-19-2016 take 1 puff(s ) by inhala tion once daily Albuterol Sulfate (Proventil Hfa) 6.7 GM HFA aerosol inhaler Active 1 - 2 PUFF IH DAILY October 19, 2016 4:14pm Start: 10-19-2016 albuterol HFA (PROVENTIL HFA, VENTOLIN HFA) 90 mcg/actuation inhaler Inhale as instructed. 10/19/2016 Active Start: 10-19-2016 Albuterol Sulf ate (Proventil Hfa) 6.7 GM HFA aerosol inhaler Active 1 - 2 NMA IH DAILY as needed for SOB October 19, 2016 1:00am Start: 10-19-2016 take 1 puff(s) by in halation once daily Albuterol Sulfate (Proventil Hfa) 6.7 GM HFA aerosol inhaler Active 1 - 2 PUFF IH DAILY October 19, 2016 12:00am Start: 10-19-2016 take 1 puff(s) by in halation once daily Albuterol Sulfate (Proventil Hfa) 6.7 GM HFA aerosol inhaler Active 1 - 2 PUFF IH DAILY October 19, 2016 1:00am apixaban 5 mg oral tablet (3 sources) Factor Xa Inhibitor Start: 06-13-2021 take 2 tablets by mouth twice daily, then take 1 tablet by mouth twice daily Apixaban (Eliquis) 5 mg Tablet Active 10 MG PO TWICE A DAY 63 June 13, 2021 9:40am two twice a day for 5 days(through 06/18/21), then one twice a day thereafter ascorbic acid 1000 mg extended release oral tablet (4 sources) Vitamin C Start: 10-03-2023 take 1 tablet by mouth once daily Ascorbic Acid (Vitamin C) (C Complex) 1,000 mg tablet extended release Active 1000 mg PO DAILY October 03, 2023 1:00am Budesonide-Formo terol (14 sources) Corticosteroid, beta2-Adrenergic Agonist Start: 10-19-2016 take 1 puff(s) by inhalation twice daily Budesonide-Formoter ol (Symbicort) 1 INHALER inhaler Active 1 PUFF INHALATION TWICE A DAY October 19, 2016 4:14pm Start: 10-19-2016 Budesonide-For moterol (Symbicort) 1 INHALER inhaler Active 1 NMA INHALATION TWICE A DAY October 19, 2016 1:00am Start: 10-19-2016 take 1 puff(s) by in halation twice daily Budesonide-Formoterol (Symbicort) 1 INHALER inhaler Active 1 PUFF INHALATION TWICE A DAY October 19, 2016 12:00am Start: 10-19-2016 take 1 puff(s) by in halation twice daily Budesonide-Formoterol (Symbicort) 1 INHALER inhaler Active 1 PUFF INHALATION TWICE A DAY October 19, 2016 1:00am cholecalciferol 0.325 mg oral capsule (4 sources) Vitamin D Start: 10-03-2023 take 1 capsule by mouth every week Cholecalciferol (Vitamin D3) 325 mcg (13,000 unit) capsule Active 325 ug PO EVERY WEEK October 03, 2023 1:00am dexamethasone 2 mg oral tablet (3 sources) Corticosteroid Start: 06-13-2021 take 6 mg by mouth once daily Dexamethasone Active 6 MG PO DAILY June 13, 2021 9:53am starting 06/14/21 diphenhydrAMINE hydrochloride 50 mg oral capsule (12 sources) Histamine-1 Receptor Antagonist Start: 06-20-2022 End: 01-24-2024 take 1 capsule by mouth twice daily as needed Diphenhydramine Hcl 50 mg capsule Active 50 mg PO TWICE A DAY as needed January 24, 2024 4:33pm ferrous sulfate 325 mg oral tablet (4 sources) Start: 10-03-2023 take 1 tablet by mouth once daily Ferrous Sulfate (Ferosul) 325 mg (65 mg iron) tablet Active 325 mg PO DAILY October 03, 2023 1:00am 12 hr guaiFENesin 1200 mg extended release oral tablet (11 sources) Start: 06-20-2022 take 1 tablet by mouth twice daily, then take 1 tablet by mouth every twelve hours Guaifenesin (Mucinex) 1,200 mg Tablet Extended Release 12hr Active 1200 mg PO TWICE A DAY June 20, 2022 12:00am meloxicam 15 mg oral tablet (12 sources) Nonsteroidal Anti-inflammatory Drug Start: 06-20-2022 take 1 tablet by mouth once daily Meloxicam 15 mg tablet Active 15 mg PO DAILY June 20, 2022 12:00am Metaburn (1 source) Start: 06-20-2022 take 1 tablet by mouth twice daily Metaburn Active 1 TABLET SL/PO TWICE A DAY June 20, 2022 12:00am vitamin b12 1 mg oral tablet (7 sources) Vitamin B12 Start: 10-03-2023 take 1 tablet by mouth once daily Cyanocobalamin (Vitamin B-12) (Vitamin B-12) 1,000 mcg tablet Active 1000 ug PO DAILY October 03, 2023 1:00am Start: 10-19-2016 take 1000 ug by mout h once daily Cyanocobalamin (Vitamin B-12) Active 1000 MCG PO DAILY October 19, 2016 4:14pm Completed/Discontinued Medications Medication Drug Class(es) Dates Sig (Normalized) Sig (Original) acetaminophen 250 mg / aspirin 250 mg / caffeine 65 mg oral tablet (14 sources) Platelet Aggregation Inhibitor, Nonsteroidal Anti-inflammatory Drug, Central Nervous System Stimulant, Methylxanthine Start: 10-19-2016 End: 11-02-2016 Aspirin-Acetaminop hen-Caffeine (Excedrin Migraine Caplet) 1 EACH tablet Discontinued 1 NMA PO NEEDED as needed for Pain October 19, 2016 1:00am November 02, 2016 3:22pm acetaminophen 325 mg / oxyCODONE hydrochloride 5 mg oral tablet (11 sources) Opioid Agonist Start: 06-20-2022 End: 08-02-2022 Oxycodone-Acetamin ophen 5-325 mg tablet Discontinued 1 {tbl} PO EVERY 8 HOURS June 20, 2022 12:00am August 02, 2022 9:02am Start: 06-20-2022 End: 08-02-2022 take 1 tablet by mouth every eight hours Oxycodone-Acetaminophen Discontinued 1 TABLET PO EVERY 8 HOURS June 20, 2022 12:00am August 02, 2022 9:02am aspirin 325 mg oral tablet (14 sources) Platelet Aggregation Inhibitor, Nonsteroidal Anti-inflammatory Drug Start: 11-02-2016 End: 06-13-2021 take 1 tablet by mouth twice daily at mealtime Aspirin 325 MG tablet Discontinued 325 mg PO TWICE DAILY WITH MEALS 60 November 02, 2016 1:00am June 13, 2021 9:41am ciprofloxacin 750 mg oral tablet (4 sources) Quinolone Antimicrobial Start: 10-03-2023 End: 10-10-2023 take 1 tablet by mouth twice daily Ciprofloxacin Hcl 750 mg tablet Discontinued 750 mg PO TWICE A DAY October 03, 2023 1:00am October 10, 2023 10:40am doxycycline hyclate 100 mg oral capsule (4 sources) Tetracycline-class Drug Start: 10-03-2023 End: 10-10-2023 take 1 capsule by mouth twice daily Doxycycline Hyclate 100 mg capsule Discontinued 100 mg PO TWICE A DAY October 03, 2023 1:00am October 10, 2023 10:40am oxyCODONE hydrochloride 5 mg oral tablet (10 sources) Opioid Agonist Start: 08-02-2022 End: 01-24-2024 take 1 tablet by mouth every four hours as needed for pain Oxycodone 5 mg Tablet Discontinued 5 - 10 mg PO EVERY 4 HOURS NEEDED as needed for Pain Score 4-10 84 7 August 02, 2022 January 24, 2024 4:36pm On Hold: Ordered 1 or 2 p.o. every 4 hours as needed severe pain pantoprazole 40 mg delayed release oral tablet (15 sources) Proton Pump Inhibitor Start: 06-12-2021 End: 01-24-2024 take 1 tablet by mouth once daily Pantoprazole 40 mg Tablet,Delayed Release (Dr/Ec) Discontinued 40 mg PO DAILY June 12, 2021 12:00am January 24, 2024 4:36pm On Hold: Ordered 12 hr pseudoephedrine hydrochloride 120 mg extended release oral tablet (11 sources) alpha-Adrenergic Agonist Start: 06-20-2022 End: 01-24-2024 take 1 tablet by mouth once daily Pseudoephedrine Hcl (Sudafed 12 Hour) 120 mg Tablet Extended Release Discontinued 120 mg PO DAILY June 20, 2022 12:00am January 24, 2024 4:34pm Restful Legs (10 sources) Start: 08-02-2022 End: 01-24-2024 Restful Legs Discontinued 1 - 2 {tbl} SL/PO Q4H as needed for restless legs August 02, 2022 1:00am January 24, 2024 4:36pm On Hold: MD Ordered Start: 08-02-2022 take 1 tablet by farheen th every four hours Restful Legs Active 1 - 2 TABLET SL/PO Q4H August 02, 2022 1:00am Start: 08-02-2022 take 1 tablet by farheen th every four hours Restful Legs Active 1 - 2 TABLET SL/PO Q4H August 02, 2022 12:00am rivaroxaban 10 mg oral tablet (10 sources) Factor Xa Inhibitor Start: 08-02-2022 End: 01-24-2024 take 1 tablet by mouth at dinner Rivaroxaban (Xarelto) 10 mg Tablet Discontinued 10 mg PO WITH DINNER August 02, 2022 1:00am January 24, 2024 4:36pm On Hold: Ordered sulfamethoxazole 800 mg / trimethoprim 160 mg oral tablet (4 sources) Dihydrofolate Reductase Inhibitor Antibacterial, Sulfonamide Antimicrobial Start: 10-10-2023 End: 01-24-2024 Sulfamethoxazole- Trimethoprim (Bactrim Ds) 800-160 mg tablet Discontinued 1 {tbl} PO TWICE A DAY October 10, 2023 1:00am January 24, 2024 4:35pm tamsulosin hydrochloride 0.4 mg oral capsule (14 sources) alpha-Adrenergic Rogerio Start: 06-12-2021 End: 01-24-2024 take 1 capsule by mouth at bedtime as needed Tamsulosin 0.4 mg Capsule Discontinued 0.4 mg PO AT BEDTIME NEEDED as needed for Urinary Retention June 12, 2021 12:00am January 24, 2024 4:36pm On Hold: Ordered Zinc (4 sources) Start: 10-03-2023 End: 01-24-2024 take 2 tablets by mouth once daily Zinc 15 mg tablet Discontinued 30 mg PO DAILY October 03, 2023 1:00am January 24, 2024 4:35pm Start: 10-03-2023 take 30 mg by mouth once daily Zinc Active 30 MG PO DAILY October 03, 2023 1:00am Start: 10-03-2023 take 30 mg by mouth once daily Zinc Active 30 MG PO DAILY October 03, 2023 12:00am Problems Active Problems Problem Classification Problem Date Documented Da te Episodic/Chronic Chronic ulcer of skin (14 sources) 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; Translations: [Non-pressure chronic ulcer of left ankle with fat layer exposed] Onset: 01-23-2024 10-03-2023 Chronic E Codes: Fall (3 sources) Fall; Translations: [Unspecified fall, initial encounter] Onset: 09-10-2024 09-11-2024 Episodic Open wounds of extremities (11 sources) Laceration of left lower leg; Translations: [Laceration without foreign body, left lower leg, initial encounter] Onset: 06-28-2024 06-21-2023 Episodic Other circulatory disease (6 sources) Elevated blood pressure; Translations: [Elevated blood-pressure reading, without diagnosis of hypertension] 06-21-2023 Episodic Other connective tissue disease (10 sources) History of total hip arthroplasty; Translations: [Presence of left artificial hip joint] 08-02-2022 Chronic Other connective tissue disease (4 sources) Presence of left artificial hip joint; Translations: [Hip joint replacement] Chronic Other diseases of veins and lymphatics (1 source) Stasis dermatitis; Translations: [Chronic venous hypertension (idiopathic) with inflammation of left lower extremity] 01-24-2024 Chronic Comment on above: Venous duplex- left calf GSV acute thrombosis, ASV with reflux Other diseases of veins and lymphatics (1 source) Chronic venous hypertension (idiopathic) with inflammation of left lower extremity; Translations: [Chronic venous hypertension (idiopathic) with inflammation of left lower extremity] Onset: 06-28-2024 Chronic Other diseases of veins and lymphatics (4 sources) Peripheral venous insufficiency; Translations: [Venous insufficiency (chronic) (peripheral)] 10-03-2023 Episodic Other injuries and conditions due to external causes (1 source) Encounter for examination and observation following other accident; Translations: [Encounter for examination and observation following other accident] Onset: 09-26-2024 Episodic Other lower respiratory disease (1 source) Cough; Translations: [Acute cough] 09-01-2022 Episodic Peripheral and visceral atherosclerosis (1 source) Peripheral vascular disease, unspecified; Translations: [Peripheral vascular disease, unspecified] Onset: 06-28-2024 Chronic Pulmonary heart disease (14 sources) Pulmonary embolism; Translations: [Other pulmonary embolism without acute cor pulmonale] 06-11-2021 Episodic Unclassified (14 sources) Age AND/OR growth finding; Translations: [65 years of age or older] 06-01-2021 Unclassified (1 source) Acute cough; Translations: [Acute cough] Onset: 09-01-2022 Past or Other Problems Problem Classification Problem Date Documented Date Episodic/Chronic Other diseases of veins and lymphatics (7 sources) Venous insufficiency (chronic) (peripheral); Translations: [Venous (peripheral) insufficiency, unspecified] Onset: 06-28-2024 10-26-2023 Episodic Other lower respiratory disease (1 source) Other forms of dyspnea; Translations: [Other forms of dyspnea] Onset: 07-12-2024 Episodic Other skin disorders (1 source) Localized swelling, mass and lump, right lower limb; Translations: [Localized swelling, mass and lump, right lower limb] Onset: 06-28-2024 Episodic Residual codes; unclassified (1 source) Localized edema; Translations: [Localized edema] Onset: 02-12-2024 Episodic Results Test Name Value Interpretation Reference Range Facility Wound Cultureon 11-29-2024 WC Staphylococcus aureu s Amount Growth 2+ Staphylococcus aureus: REACTION cefOXitin Susc Islt Doxycycline Islt JUNIOR 4 S Clindamycin Islt JUNIOR 0.25 S Clindamycin.induced Susc Islt NEG Erythromycin Islt JUNIOR >=8 R Gentamicin Islt JUNIOR <=0.5 S Linezolid Islt JUNIOR 2 S Moxifloxacin Islt JUNIOR <=0.25 S Oxacillin Susc Islt <=0.25 S Tetracycline Islt JUNIOR >=16 R TMP SMX Islt JUNIOR <=10 S Vancomycin Islt JUNIOR <=0.5 S Normal [facility] Comment on above: Performed By: #### M 100.1999, M100.3000 #### [facility] [address] [place], [place], [id number] Gram Stainon 11-27-2024 GS Gram Stain 2+ Gram positive cocci Rare Gram negative rods Rare Gram positive rods Rare Epithelial cells Rare White Blood Cells Normal [facility] Comment on above: Performed By: #### M 100.1999, M100.3000 #### [facility] [address] [place], [place], [id number] Gram stainOrdered By: Katlyn riley on 11-26-2024 Microscopic observation Gram stain Nom (Unsp spec) [facility] Routine wound cultureOrdered By: Katlyn Lantigua on 11-26-2024 Wound Culture Staphylococcus aureus Abnormal [facility] Plastic Surgery Visit Report on 09-17-2024 Plastic Surgery Visit Report [facility] [address], [address] [place], [place] [address] OFFICE VISIT Date of Service: 09/17/24 MR#: [id number] Acct: [id number] Name: ABDOUL ALICEA Rep #: [id number] : 1950 Provider: Dr. Diomedes Hemphill MD Age/Sex: 73/M Location: [place] [address] Status: Signed Intake Vital Signs 09/03/24 07:57 Height 6 ft Weight: 232 lb 6.4 oz BMI 31.5 BP 116/73 Respiration 20 H Pulse 96 Temp 97.3 F L Temp Source Temporal Pulse Oximetry (%) 98 Intake Visit Reasons: 1 WK F/U-STITCH REMOVAL Chief Complaint: Right hand injury f/u Is patient in pain?: No Allergies gabapentin Allergy (Verified 09/17/24 11:05) Rash Medications ???Medication ???Instructions ???Recorded ???Confirmed ???Type albuterol sulfate 90 mcg/actuation 1 - 2 puff IH DAILY PRN SOB 10/19/16 09/17/24 History aerosol inhaler (Proventil HFA) budesonide-formoterol HFA 160 1 puff inhalation BID breathing 10/19/16 09/17/24 History mcg-4.5 mcg/actuation aerosol inhaler (Symbicort) guaifenesin 1,200 mg tablet, 1,200 mg PO BID 06/20/22 09/17/24 History extended release 12 hr (Mucinex) meloxicam 15 mg tablet 15 mg PO DAILY 06/20/22 09/17/24 History acetaminophen 500 mg tablet 1,000 mg (2 x 500 mg) PO Q8 30 08/02/22 09/17/24 Rx days #180 tabs ascorbic acid (vitamin C) 1,000 mg 1,000 mg PO DAILY 10/03/23 09/17/24 History tablet,extended release (C Complex) cholecalciferol (vitamin D3) 325 325 mcg PO QWEEK 10/03/23 09/17/24 History mcg (13,000 unit) capsule cyanocobalamin (vitamin B-12) 1,000 mcg PO DAILY 10/03/23 09/17/24 History 1,000 mcg tablet (Vitamin B-12) ferrous sulfate 325 mg (65 mg 325 mg PO DAILY 10/03/23 09/17/24 History iron) tablet (FeroSul) diphenhydramine HCl 50 mg capsule 50 mg PO BID PRN 01/24/24 09/17/24 History Have you fallen in the past year?: Yes Nurse's Note: pt states he is doing well. No pain today. Subjective Details: Abdoul Snell is a delightful 73-year-old male who had a mechanical fall at 4:30 in the morning last Monday, 03 September 2024 (1 week ago). He was seen at the emergency department and evaluated for a right volar hand transverse laceration. He reports no numbness or tingling and no motor deficits. Pain is improving. He denies any wrist pain. He was referred to my clinic out of concern for abutment of the proximal row of the carpus into the distal radius and ulna in the setting of chronic arthritis, but also with the possibility of an SL ligament tear (widening between scaphoid and lunate of 6 mm). He is a [place] and has hurt his hands in the past but does not have any chronic wrist pain. Not a smoker. Current encounter, 17 Sep 2024: Doing well. No fevers/chills or drainage. Sutures removed in clinic without issues Objective Details: R Upper Extremity Inspection: Healing transverse laceration of the right proximal palm with nylon sutures removed (intact following removal). Clean dry and intact. No induration or signs of fluid collections. Palpation: No tenderness to palpation over the wrist, no tenderness to the scaphoid, no tenderness or shifting with the Madsen shift test. Motor: Able to bend and extend all MP, PIP, and DIP joints. Sensory: Intact to light touch on the radial and ulnar borders. Vascular: Finger tips are warm and well perfused with <2 second capillary refill. Coding Level of Care Code Off vis,est,level 3 Diagnoses Hand laceration S61.419A [facility] Medical History Gastric reflux Wears hearing aid Wears glasses Cancer Alcohol use Walker as ambulation aid Ambulates with cane Arthritis Pulmonary embolism Restless legs Back pain History of IBS Former smoker Shortness of breath on exertion History of edema History of echocardiogram Hx of skin cancer, basal cell Bronchiectasis COVID-19 Surgical History Hx of colonoscopy History of hydrocelectomy History of back surgery History of hip surgery Family History Other Colon cancer Heart disease Social History Smoking Status: Former smoker Assessment and Plan (No Qualifiers) Assessment and Plan (1) Hand laceration: Status: Inactive Plan: Sutures removed. Discussed no heavy lifting x 1 month to avoid wound break F/u as needed. Patient happy with plan 09/17/24 1133 Date Diomedes Hemphill MD Cosign Signature: Date (if applicable) CC: Normal [facility] Plastic Surgery Visit Report on 09-10-2024 Plastic Surgery Visit Report [facility]astic [facility] Surgery [address] [place] [address], [address] [place] [address] OFFICE VISIT Date of Service: 09/10/24 MR#: [id number] Acct: [id number] Name: MANIABDOUL Rep #: [id number] : 1950 Provider: Dr. Diomedes Hemphill MD Age/Sex: 73/M Location: [place] [address] Status: Signed Intake Vital Signs 09/03/24 07:57 Height 6 ft Intake Visit Reasons: R HAND INJURY Chief Complaint: Right hand injury f/u Is patient in pain?: No Allergies gabapentin Allergy (Verified 09/10/24 11:36) Rash Medications ???Medication ???Instructions ???Recorded ???Confirmed ???Type albuterol sulfate 90 mcg/actuation 1 - 2 puff IH DAILY PRN SOB 10/19/16 09/10/24 History aerosol inhaler (Proventil HFA) budesonide-formoterol HFA 160 1 puff inhalation BID breathing 10/19/16 09/10/24 History mcg-4.5 mcg/actuation aerosol inhaler (Symbicort) guaifenesin 1,200 mg tablet, 1,200 mg PO BID 06/20/22 09/10/24 History extended release 12 hr (Mucinex) meloxicam 15 mg tablet 15 mg PO DAILY 06/20/22 09/10/24 History acetaminophen 500 mg tablet 1,000 mg (2 x 500 mg) PO Q8 30 08/02/22 09/10/24 Rx days #180 tabs ascorbic acid (vitamin C) 1,000 mg 1,000 mg PO DAILY 10/03/23 09/10/24 History tablet,extended release (C Complex) cholecalciferol (vitamin D3) 325 325 mcg PO QWEEK 10/03/23 09/10/24 History mcg (13,000 unit) capsule cyanocobalamin (vitamin B-12) 1,000 mcg PO DAILY 10/03/23 09/10/24 History 1,000 mcg tablet (Vitamin B-12) ferrous sulfate 325 mg (65 mg 325 mg PO DAILY 10/03/23 09/10/24 History iron) tablet (FeroSul) diphenhydramine HCl 50 mg capsule 50 mg PO BID PRN 01/24/24 09/10/24 History Have you fallen in the past year?: Yes (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 He was seen at the emergency department and evaluated for a right volar hand transverse laceration. He reports no numbness or tingling and no motor deficits. Pain is improving. He denies any wrist pain. He was referred to my clinic out of concern for abutment of the proximal row of the carpus into the distal radius and ulna in the setting of chronic arthritis, but also with the possibility of an SL ligament tear (widening between scaphoid and lunate of 6 mm). He is a [place] and has hurt his hands in the past but does not have any chronic wrist pain. Not a smoker. Objective Details: R Upper Extremity Inspection: Healing transverse laceration of the right proximal palm with nylon sutures intact. Clean dry and intact. No induration or signs of fluid collections. Palpation: No tenderness to palpation over the wrist, no tenderness to the scaphoid, no tenderness or shifting with the Madsen shift test. Motor: Able to bend and extend all MP, PIP, and DIP joints. Sensory: Intact to light touch on the radial and ulnar borders. Vascular: Finger tips are warm and well perfused with <2 second capillary refill. Coding Level of Care Code Off vis,new,level 3 Diagnoses Fall W19.XXXA Hand laceration S61.419A [facility] Medical History Gastric reflux Wears hearing aid Wears glasses Cancer Alcohol use Walker as ambulation aid Ambulates with cane Arthritis Pulmonary embolism Restless legs Back pain History of IBS Former smoker Shortness of breath on exertion History of edema History of echocardiogram Hx of skin cancer, basal cell Bronchiectasis COVID-19 Surgical History Hx of colonoscopy History of hydrocelectomy History of back surgery History of hip surgery Family History Other Colon cancer Heart disease Social History Smoking Status: Former smoker Assessment and Plan (No Qualifiers) Assessment and Plan (1) Fall: Status: Acute Plan: X-rays reviewed (2) Hand laceration: Status: Acute Plan Discussed x-rays Patient did not want a left wrist x-ray to compare (*deferred) Since he is not having any wrist pain or signs of carpal instability, he would like to follow-up as needed for this problem. I will take his sutures out in clinic next week (2 weeks total) Patient and his daughter happy with the plan 09/10/24 7318 Date Diomedes Hemphill MD Cosigner Signature: Date (if applicable) CC: Normal [facility] Emergency Department Summary on 09-03-2024 Emergency Department Summary [facility] Medical Records Department [address] [place] [address] Emergency Department Summary 09/03/24 MR#: [id number] Acct: [id number] Name: ABDOUL ALICEA Rep #: [id number] : 1950 73 From: Otoniel Ashraf MD PCP: Dr. Katlyn Lantigua MD Status:REG ER Location: ED HPI History of Present Illness Chief Complaint: Fall Narrative Narrative: 73-year-old male who denies significant past medical history, presents with injury to his right hand that he sustained this morning after a fall. 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 He went to fill his front buggy loader with salt. However, he had not turned on the lights. He states that as he was coming around to turn on the lights he caught his foot on the front end of the front buggy loader, and tumbled forward. He fell onto his right hand and sustained a laceration across his palm. He states while he hit his head and broke his glasses and sustained superficial abrasions to his right cheek, he denies any neck pain or loss of consciousness. He has been able to ambulate afterwards, and even took a shower. Additionally, he and his states that he sustained abrasions to his right elbow and right knee, but their main concern is the laceration on the palm of his hand. He is right-hand dominant, and states that he prefers not to have sutures because he is always working with his right hand, but presents for evaluation. [facility] Medical History Gastric reflux Wears hearing aid Wears glasses Cancer Alcohol use Walker as ambulation aid Ambulates with cane Arthritis Pulmonary embolism Restless legs Back pain History of IBS Former smoker Shortness of breath on exertion History of edema History of echocardiogram Hx of skin cancer, basal cell Bronchiectasis COVID-19 Home Medications ???Medication ???Instructions ???Recorded ???Last Taken ???Type albuterol sulfate 90 mcg/actuation 1 - 2 puff IH DAILY PRN SOB 10/19/16 08/01/22 History aerosol inhaler (Proventil HFA) budesonide-formoterol HFA 160 1 puff inhalation BID breathing 10/19/16 08/01/22 History mcg-4.5 mcg/actuation aerosol inhaler (Symbicort) guaifenesin 1,200 mg tablet, 1,200 mg PO BID 06/20/22 Unknown History extended release 12 hr (Mucinex) meloxicam 15 mg tablet 15 mg PO DAILY 06/20/22 Unknown History acetaminophen 500 mg tablet 1,000 mg (2 x 500 mg) PO Q8 30 08/02/22 Unknown Rx days #180 tabs ascorbic acid (vitamin C) 1,000 mg 1,000 mg PO DAILY 10/03/23 Unknown History tablet,extended release (C Complex) cholecalciferol (vitamin D3) 325 325 mcg PO QWEEK 10/03/23 Unknown History mcg (13,000 unit) capsule cyanocobalamin (vitamin B-12) 1,000 mcg PO DAILY 10/03/23 Unknown History 1,000 mcg tablet (Vitamin B-12) ferrous sulfate 325 mg (65 mg 325 mg PO DAILY 10/03/23 Unknown History iron) tablet (FeroSul) diphenhydramine HCl 50 mg capsule 50 mg PO BID PRN 01/24/24 Unknown History Allergy/AdvReac Type Severity Reaction Status Date / Time gabapentin Allergy Rash Verified 09/03/24 08:00 Family History Other Colon cancer Heart disease Surgical History Hx of colonoscopy History of hydrocelectomy History of back surgery History of hip surgery Social History Smoking Status: Former smoker ROS ROS ED ROS Narrative Focused review of systems positive for laceration on palm of right hand. Minimal hand pain. Multiple abrasions to various sites including right cheek, right elbow, and right knee. No prodromal chest pain or shortness of breath. No neck pain. No loss of consciousness. States mainly here for laceration of palm. EXAM Physical Exam Narrative Exam Narrative: GCS 15. ABCs are intact. Neck soft and supple with full range of motion. Cardiovascular examination regular rate and rhythm. Lungs are clear to auscultation bilaterally. Abdomen soft. Inspection of the right hand does reveal a 6 cm laceration across the crease of his palm in the middle, no active bleeding. It appears subcutaneous. No bony tenderness. No visualized tendon through range of motion of fingers. Palpable radial pulse. No wrist pain. Capillary refill less than 2 seconds to fingertips. Able to oppose thumb. Multiple small superficial abrasions to right cheek, no active bleeding. Const Vital Signs: 09/03/24 07:57 Temperature 97.3 F L Temperature Source Temporal Pulse Rate 96 Respiratory Rate 20 H Blood Pressure 116/73 Blood Pressure Mean 87 Pulse Ox 98 Oxygen Delivery Method Room Air MDM MDM MDM Narrative Medical decision making narrative: I will f (more content not included)... Normal [facility] Hand Min 3 Viewson 5 Hand Min 3 Views [facility] Imaging Services [address] [place], [place] [id number] Hand Min 3 Views MR#: [id number] Acct: [id number] Name: ABDOUL ALICEA Rep #: [id number] : 1950 M 73 From: Deep Gayle MD PCP: Dr. Katlyn Lantigua MD Status: PRE ER Study: Hand Min 3 Views Date of Exam: 09/03/24 Exam# [id number] Ordering Dr: Otoniel Ashraf MD [id number] STUDY: X-RAY - RIGHT HAND REASON FOR EXAM: Male, 73 years old. Trauma. TECHNIQUE: 3 views of the right hand. COMPARISON: None. FINDINGS: There is joint space narrowing of the radiocarpal articulation consistent with degenerative arthrosis. There is narrowing of the ulnolunate joint with sclerosis in the distal ulna, suggestive of ulnolunate impaction syndrome. There is a 2 mm ossific structure distal to the ulnar styloid, probably the sequelae of an old avulsion/fracture. There is chondrocalcinosis of the triangular fibrocartilage. Intact visualized carpal bones. There is widening of the scapholunate interval, measuring 6 mm in width. Normal carpometacarpal articulation of the thumb. Normal second through fifth carpometacarpal joints. Normal metacarpi. Normal interphalangeal joint of the thumb. Normal proximal and distal phalanges of the thumb. There is degenerative arthrosis of the first through third MCP joints. There is degenerative arthrosis of the interphalangeal joint of the thumb as well as second through fifth PIP and DIP joints. Intact phalanges of the second through fifth fingers. There is soft tissue swelling along the dorsum of the hand. RAD/Hand Min 3 Views IMPRESSION: Degenerative arthrosis, as detailed above. Narrowing of the ulnolunate joint with sclerosis in the distal ulna, suggestive of ulnolunate impaction syndrome. 2 mm ossific structure distal to the ulnar styloid, probably the sequelae of an old avulsion/fracture. 6 mm widening of the scapholunate interval. Soft tissue swelling along the dorsum of the hand. Electronically Signed: Deep Gayle MD at 8:36 EST Reading Location ID and State: [address] [place] [address] , Service support , CC: Dr. Otoniel Ashraf MD; Dr. Katlyn Lantigua MD Boat Painter: Signed Normal [facility] Echo Completeon 06-17-2024 Echo [facility] Cardiovascular Services [address] [place] [address] Echo Complete 06/17/24 1305 MR#: [id number] Acct: [id number] Name: ABDOUL ALICEA Rep #: [id number] : 1950 73 From: Negro Balderas MD Attending Dr: Dr. Katlyn Lantigua MD Status: REG CL I Ordering Dr: Katlyn Lantigua MD Date: 06/17/24 Location: [facility] Sex: M C Admitted: Reason For Study: ADRIAN, PHTN Procedure This was a 2D Doppler, Color Flow transthoracic echocardiogram. Exam performed in department. Left Ventricle Normal LV size. Mild concentric left ventricular hypertrophy. The left ventricular ejection fraction is 55 %. Stage 1 diastolic dysfunction. No regional wall motion abnormalities noted. Right Ventricle Normal RV size. Normal systolic function. Atria The left atrium is mildly enlarged. Normal right atrium. Mitral Valve Normal mitral valve. Tricuspid Valve Normal tricuspid valve. Mild (1+) tricuspid valve insufficiency. Pulmonary artery systolic pressure is 40 mmHg. Aortic Valve Trisinus/trileaflet aortic valve. Pulmonic Valve Normal pulmonic valve. Great Vessels Normal aortic root. The pulmonary artery is normal size. Inferior vena cava collapse with respiration. Pericardium/Pleural No pericardial effusion. MMode/2D Measurements Calculations LVIDd: 5.4 cm IVSd: 1.4 cm LVOT diam: 2.3 cm LVIDs: 4.1 cm LVPWd: 1.3 cm LVOT area: 4.2 cm2 RVDd: 3.7 cm FS: 23.2 % LA dimension: 3.6 cm asc Aorta Diam: 3.4 cm LAV(MOD-bp): 69.1 ml LAV(MOD-bp) Indexed: 30.3 ml/m2 LAV(MOD-sp2): 64.7 ml LAV(MOD-sp4): 67.8 ml SV(MOD-sp4): 49.5 ml SV(sp4-el): 54.3 ml LVAd ap4: 31.8 cm2 LVLd ap4: 8.8 cm EDV(MOD-sp4): 100.1 ml EDV(sp4-el): 97.6 ml LVAs ap4: 19.7 cm2 LVLs ap4: 7.6 cm ESV(MOD-sp4): 50.6 ml ESV(sp4-el): 43.3 ml EF(MOD-sp4): 49.4 % EF(sp4-el): 55.6 % LA A4 area: 23.5 cm2 RA A4 area: 20.8 cm2 TAPSE: 2.2 cm Time Measurements MV dec time: 0.22 sec Doppler Measurements Calculations MV E max lucas: 55.6 cm/sec Lat Peak E' Lucas: 10.6 cm/sec Med Peak E' Lucas: 7.9 cm/sec MV A max lucas: 86.0 cm/sec E/E' lat: 5.3 E/E' med: 7.0 MV E/A: 0.65 MV V2 max: 75.4 cm/sec MV P1/2t max lucas: 52.8 cm/sec Ao V2 max: 139.0 cm/sec MV max P.3 mmHg MV P1/2t: 74.3 msec Ao max P.7 mmHg MV V2 mean: 35.3 cm/sec Ao V2 mean: 90.6 cm/sec MV mean P.61 mmHg MV dec slope: 208.2 cm/sec2 Ao mean P.8 mmHg MV V2 VTI: 24.8 cm MVA(P1/2t): 3.0 cm2 Ao V2 VTI: 25.9 cm AV (velocity ratio): 0.82 MVA(VTI): 3.5 cm2 STEVE(I,D): 3.4 cm2 STEVE(V,D): 3.4 cm2 LV V1 max: 113.5 cm/sec SV(LVOT): 88.1 ml PA V2 max: 92.6 cm/sec LV V1 max P.2 mmHg PA max PG (full): 1.8 mmHg LV V1 mean P.2 mmHg LV V1 mean: 67.4 cm/sec LV V1 VTI: 21.1 cm TR max lucas: 302.3 cm/sec TR max P.6 mmHg ECHO/Echo Complete Interpretation Summary The left ventricular ejection fraction is 55 %. Normal LV size. Stage 1 diastolic dysfunction. Mild concentric left ventricular hypertrophy. Mild (1+) tricuspid valve insufficiency. Pulmonary artery systolic pressure is 40 mmHg. Ordering Physician: Katlyn Lantigua Referring Physician: Katlyn Lantigua Performed By: Matheus Ramírez and Student 06/17/241853 Date Negro Balderas MD CC: Dr. Katlyn Lantigua MD Date Dictated: 06/17/24 1305 Date Transcribed: 06/17/241853 Boat Painter: Signed Normal [facility] MR/BMS.BVSon 01-24-2024 MR/BMS.BVS [facility] Vascular Surgery [address] [place], [place] [address] OFFICE VISIT Date of Service: 01/24/24 MR#: [id number] Acct: [id number] Name: ABDOUL ALICEA Rep #: [id number] : 1950 Provider: Dr. Katlyn Lozano MD Age/Sex: 73/M Location: [facility] Status: Signed Intake Vital Signs 10/03/23 09:02 01/24/24 16:30 Height 6 ft Weight: 234 lb BP 150/86 H Blood Pressure Location Rt brachial Position Sitting Respiration 16 Pulse 77 Pulse Source Monitor Temp 98 F Temp Source Temporal Pulse Oximetry (%) 98 Oxygen Delivery Method room air Intake Visit Reasons: CONSULT-CONSIDERATION OF VENOGRAM/ABLATION Is patient in pain?: Yes Allergies gabapentin Allergy (Verified 01/24/24 16:33) Rash Medications ???Medication ???Instructions ???Recorded ???Confirmed ???Type albuterol sulfate 90 mcg/actuation 1 - 2 puff IH DAILY PRN SOB 10/19/16 01/24/24 History aerosol inhaler (Proventil HFA) budesonide-formoterol HFA 160 1 puff inhalation BID breathing 10/19/16 01/24/24 History mcg-4.5 mcg/actuation aerosol inhaler (Symbicort) guaifenesin 1,200 mg tablet, 1,200 mg PO BID 06/20/22 01/24/24 History extended release 12 hr (Mucinex) meloxicam 15 mg tablet 15 mg PO DAILY 06/20/22 01/24/24 History acetaminophen 500 mg tablet 1,000 mg (2 x 500 mg) PO Q8 30 08/02/22 01/24/24 Rx days #180 tabs ascorbic acid (vitamin C) 1,000 mg 1,000 mg PO DAILY 10/03/23 01/24/24 History tablet,extended release (C Complex) cholecalciferol (vitamin D3) 325 325 mcg PO QWEEK 10/03/23 01/24/24 History mcg (13,000 unit) capsule cyanocobalamin (vitamin B-12) 1,000 mcg PO DAILY 10/03/23 01/24/24 History 1,000 mcg tablet (Vitamin B-12) ferrous sulfate 325 mg (65 mg 325 mg PO DAILY 10/03/23 01/24/24 History iron) tablet (FeroSul) diphenhydramine HCl 50 mg capsule 50 mg PO BID PRN 01/24/24 01/24/24 History PFSH Medical History Gastric reflux Wears hearing aid Wears glasses Cancer Alcohol use Walker as ambulation aid Ambulates with cane Arthritis Pulmonary embolism Restless legs Back pain History of IBS Former smoker Shortness of breath on exertion History of edema History of echocardiogram Hx of skin cancer, basal cell Bronchiectasis COVID-19 Surgical History Hx of colonoscopy History of hydrocelectomy History of back surgery History of hip surgery Family History Other Colon cancer Heart disease Social History Smoking Status: Former smoker HPI HPI HPI: ABDOUL ALICEA, is a 73 M who presents to the office today for left medial calf wound that occurred after a minor trauma. Had initially made progress with healing over 3 months though this has been stalled out for past 3-4 months. No similar prior wounds. He is now seen at [facility] and is again making progress; dressings include double tubi-advertising copywriter which he was not using previously. Has had arterial studies that are normal and venous reflux studies. Here to discuss options. ROS General General: Yes weight change and appetite; No fatigue, colon cancer, breast cancer or weakness HEENT HEENT: No difficulty swallowing, eye injury, eye surgery, swollen glands or hoarseness Endo Endocrine: No thyroid disease, diabetes mellitus, thyroid cancer, Hair loss, heat intolerance or cold intolerance Skin Skin: No rash or changing moles Musc Musculoskeletal: Yes arthritis; No back problems, rheumatoid arthritis, gout or joint pain Cardio Cardiovascular: No murmur, pacemaker, heart disease, atrial fibrillation, high blood pressure, heart attack, heart stent, palpitations, shortness of breat with exertion or chest pain Psych Psychiatric: No depression, anxiety or hearing voices Resp Respiratory: Yes shortness of breath, Yes sleep apnea, Yes cough, No COPD, No asthma, No emphysema and No wheezing Gastro Gastrointestinal: No abdominal pain, No nausea or vomiting, No diarrhea, No constipation, No blood in stool, No acid reflux, No hemorrhoids, No ulcers, No gallbladder problem and No black,tarry stools Major Hematologic: No blood thinners, No blood disorders, No bleeding, No anemia and No blood clots Neuro Neurologic: No system reviewed and no additional complaints, except as documented, No as per HPI, No abnormal gait, No abnormal hearing, No abnormal movements, No abnormal speech, No behavioral changes, No burning sensations, No confusion, No convulsions, No disequilibrium, No dizziness, No localized weakness, No frequent falls, No headache(s), No lack of coordination, No loss of vision, No (more content not included)... Normal [facility] Lower Ext Art Exam w/o Exerc tammie 01-05-2024 Lower Ext Art Exam w/o Exercis [facility] Cardiovascular Services [address] [place] [address] Lower Ext Art Exam w/o Exercis 01/05/24 0908 MR#: [id number] Acct: [id number] Name: ABDOUL ALICEA Rep #: [id number] : 1950 73 From: Felton Trotter MD Attending Dr: Dr. Nick Forbes DPM Status: Joann ROE R Ordering Dr: Nick Forbes DPM Date: 01/05/24 Location: [facility] Sex: M C Admitted: Reason For Study: LE Wound Procedure A bilateral lower extremity continuous wave Doppler with analog waveform analysis,segmental pressures,and ankle brachial indexes without exercise. Left Segmental Pressures Left brachial= 135mmHg. Left posterior tibial artery = 198mmHg. Left dorsalis pedis artery = 188mmHg. Left digit = 80 mmHg. The left posterior tibial artery waveforms are triphasic. The left dorsalis pedis waveforms are triphasic. Right Segmental Pressures Right brachial= 139mmHg. Right posterior tibial artery = 167mmHg. Right dorsalis pedis artery = 171mmHg. Right digit = 125 mmHg. The right posterior tibial artery waveforms are triphasic. The right dorsalis pedis waveforms are triphasic. Indices The right ankle brachial index by the posterior tibial artery is 1.20. The right ankle brachial index by the dorsalis pedis is 1.23. The right digital-brachial index is 0.90. The left ankle brachial index by the posterior tibial artery is 1.42. The left ankle brachial index by the dorsalis pedis is 1.35. The left digital-brachial index is 0.58. VL/Lower Ext Art Exam w/o Exercis Interpretation Summary Triphasic Doppler waveforms are noted at ankle level bilaterally. Pulse-volume recordings appear diminished at digital level on the left, but satisfactory at all other levels bilaterally. The resting right ankle-brachial index is normal. The resting left ankle-brachial index is supra-normal. The right digital-brachial index is normal. The left digital-brachial index is mildly diminished. There is evidence of arterial calcification at ankle level on the left. Arterial flow appears normal at ankle level bilaterally, and at digital level on the right. There is evidence of mild arterial occlusive disease at digital level on the left. Ordering Physician: Nick Forbes Referring Physician: Katlyn Lantigua MD Performed By: Cisco Fowler RVT 01/06/24 2258 Date Felton Trotter MD CC: DPM Dr. Nick Forbes; Dr. Katlyn Lantigua MD Date Dictated: 01/05/24907 Date Transcribed: 01/06/242257 Boat Painter: Signed Normal [facility] Venous Duplex US - Miguelito Extre [facility] 01-05-2024 Venous Duplex US - Miguelito Extrem [facility] Cardiovascular Services [address] [place] [address] Venous Duplex US - Miguelito Extrem 01/05/24 0754 MR#: [id number] Acct: [id number] Name: ABDOUL ALICEA Rep #: [id number] : 1950 73 From: Felton Trotter MD Attending Dr: Dr. Nick Forbes, MARAM Status: R EG RCR Ordering Dr: Nick Forbes DPM Date: 01/05/24 Location: [facility] Sex: M C Admitted: Version 2 Reason For Study: LE Ulcers RIGHT LEFT CFV is compressible, spontaneous, phasic, CFV is compressible, spontaneous, phasic, competent and demonstrates normal competent, and demonstrates normal augmentation. augmentation. FV is compressible, spontaneous, phasic, FV is compressible, spontaneous, phasic, competent and demonstrates normal competent and demonstrates normal augmentation. augmentation. POP V is compressible, phasic, and POP V is compressible, spontaneous, phasic, INCOMPETENT for greater than 1.0 second. competent and demonstrates normal T/P Trunk is compressible. augmentation. PTV is compressible. T/P Trunk is compressible. RT PerV is compressible. PTV is compressible. SFJ is competent and measures 0.76 cm. LT PerV is compressible. GSV proximal thigh measures 0.55 x 0.54 cm. SFJ is competent and measures 0.76 cm. GSV at knee measures 0.59 x 0.60 cm. GSV proximal thigh measures 0.34 x 0.36 cm. GSV above knee is competent. GSV above knee is competent. GSV below knee is INCOMPETENT for greater GSV from mid calf to knee is dilated and than 0.5 seconds. noncompressible with intraluminal echoes. ASV distal calf is INCOMPETENT for greater Finding is consistent with acute SVT. than 0.5 seconds and measures 0.39 x 0.47 Unable to visualize distal calf due to cm. wound/bandage. SSV proximal calf is competent and measures ASV proximal calf is INCOMPETENT for greater 0.07 x 0.07 cm. than 0.5 seconds and measures 0.32 x 0.33 cm. Procedure SSV proximal calf is competent and measures This is a venous duplex using B-mode, color 0.14 x 0.13 cm. flow and spectral Doppler. Exam performed in department. The exam was diagnostic. A preliminary report was called and/or faxed to Mei at [facility]. VL/Venous Duplex US - Miguelito Extrem Interpretation Summary Deep veins of the lower extremities are bilaterally patent and compressible segmentally. There is no evidence of deep vein thrombosis on either side. The right popliteal vein is incompetent. Valvular competence appears intact within the proximal deep venous system on the left . The right great saphenous vein appears patent and compressible segmentally. Sapheno-femoral junctions are bilaterally competent . The right great saphenous vein appears competent above the knee. The right great saphenous vein appears incompetent below the knee. The left great saphenous vein appears competent above the knee. Acute superficial thrombophlebitis is noted in the left great saphenous vein from the knee to the mid-calf. The distal left great saphenous vein was not visualized due to the presence of a bandage. Small saphenous veins are patent and competent bilaterally. The accessory saphenous vein in the right distal calf is incompetent. The accessory saphenous vein in the left proximal calf is incompetent. Ordering Physician: Nick Forbes Referring Physician: Katlyn Lantigua Performed By: Cisco Fowler RVT 01/06/24 2004 Date Felton Trotter MD CC: DPM Dr. Nick Forbes; Dr. Katlyn Lantigua MD Date Dictated: 01/05/24753 Date Transcribed: 01/06/248 Boat Painter: Signed Normal [facility] Anaerobic cultureOrdered By: Nick Forbes on 10-03-2023 Bacteria identified Anaer cx Nom (Unsp spec) No anaerobic bacteria isolated. [facility] Bacteria identified Anaer cx Nom (Unsp spec) No anaerobic bacteria isolated. [facility] Bacteria identified Cx Nom ( Wound)Ordered By: Nick Forbes on 10-03-2023 Wound Culture Staphylococcus aureus [facility] Wound Culture Staphylococcus aureus [facility] Gram stain for investigation of transfusion reactionOrdered By: Nick Forbes on 10-03-2023 Microscopic observation Gram stain Nom (Unsp spec) [facility] Microscopic observation Gram stain Nom (Unsp spec) [facility] Absolute lymphocyte countOrd ered By: Katlyn Lantigua on 07-11-2023 Lymphocytes Auto (Unsp spec) [#/Vol] 1.53 10*3/uL 0.83-4.51 [facility] Basophil percentageOrdered B y: Katlyn Lantigua on 07-11-2023 Basophils/100 WBC (Bld) 0.6 % 0-1 [facility] Bilirubin [Mass/Vol] 0.70 mg/dL 0.20-1.00 [facility] Comment on above: For patients on eltr ombopag therapy, use of Dimension Karthaus TBIL is not recommended. Chloride [Moles/Vol] 108 mmol/L 98-107 [facility] Eosinophils/100 WBC (Bld) 2.9 % 0-5 [facility] Glucose [Mass/Vol] 102 mg/dL 74-106 [facility] Comment on above: Fasting Glucose resu lt from 100 to 125 mg/dL suggests IMPAIRED HOMEOSTASIS per A.D.A. criteria. Neutrophils (Bld) [#/Vol] 4.3 10*3/uL 2.0-7.7 [facility] Neutrophils/100 WBC (Bld) 64.9 % 47-70 [facility] Potassium [Moles/Vol] 4.2 mmol/L 3.5-5.1 [facility] [facility] Protein [Mass/Vol] 6.8 g/dL 6.4-8.2 [facility] Sodium [Moles/Vol] 140 mmol/L 136-145 [facility] WBC (Bld) [#/Vol] 6.6 10*3/uL 4.4-11.0 [facility] Blood erythrocytes count (nu mber/volume)Ordered By: Katlyn Lantigua on 07-11-2023 RBC (Bld) [#/Vol] 4.63 10*6/uL 4.6-6.2 [facility] Blood hemoglobin measurement (mass/volume)Ordered By: Katlyn Lantigua on 07-11-2023 Hemoglobin (Bld) [Mass/Vol] 12.1 g/dL 13.0-16.5 [facility] Blood lymphocytes/100 leukoc ytesOrdered By: Katlyn Lantigua on 07-11-2023 Lymphocytes/100 WBC (Bld) 23.3 % 19-41 [facility] Blood monocytes/100 leukocyt esOrdered By: Katlyn Lantigua on 07-11-2023 Monocytes/100 WBC (Bld) 7.8 % 0-10 [facility] Blood platelet mean volumeOr dered By: Katlyn Lantigua on 07-11-2023 Platelet mean volume (Bld) [Entitic vol] 9.7 fL 6.2-12.0 [facility] Determination of erythrocyte mean corpuscular volume (MCV)Ordered By: Katlyn Lantigua on 07-11-2023 MCV (RBC) [Entitic vol] 83.8 fL 80-94 [facility] Hematocrit Auto (Bld) [Volum e fraction]Ordered By: Katlyn Lantigua on 07-11-2023 Hematocrit (Bld) [Volume fraction] 38.8 % 40-54 [facility] Laboratory - Chemistry and C hemistry - challengeOrdered By: Katlyn Lantigua on 07-11-2023 ALP [Catalytic activity/Vol] 83 U/L 45-117 [facility] ALT [Catalytic activity/Vol] 23 U/L 16-61 [facility] CO2 [Moles/Vol] 27.0 mmol/L 21.0-32.0 [facility] Free T4 [Mass/Vol] 1.13 ng/dL 0.76-1.46 [facility] Globulin (S) [Mass/Vol] 3.5 g/dL 2.2-4.2 [facility] Urea nitrogen/Creatinine [Mass ratio] 19.5 mg/mg 10-20 [facility] Laboratory - Hematology and Cell countsOrdered By: Katlyn Lantigua on 07-11-2023 Erythrocyte distribution width (RBC) [Entitic vol] 42.8 fL 35.1-43.9 [facility] Erythrocyte distribution width (RBC) [Ratio] 14.0 % 11.6-14.6 [facility] Immature granulocytes/100 WBC (Bld) 0.500 % 0.0-0.9 [facility] Comment on above: IG% - Immature Granu locytes (promyelocytes, myelocytes and metamyelocytes) > 1% indicates that a LEFT SHIFT is Present. MCH (RBC) [Entitic mass] 26.1 pg 27.0-32.0 [facility] Nucleated RBC/100 WBC (Bld) [Ratio] 0 % 0-5 [facility] MCHC Auto (RBC) [Mass/Vol]Or dered By: Katlyn Lantigua on 07-11-2023 MCHC (RBC) [Mass/Vol] 31.2 g/dL 32-36 [facility] No Panel InformationOrdered By: Katlyn Lantigua on 07-11-2023 Thyroglobulin Antibody < 1.0 IU/mL 0.0-0.9 [facility] Comment on above: Thyroglobulin Antibo dy measured by Mary Jane CoulterMethodology Thyroglobulin Level 5.8 ng/mL 1.4-29.2 [facility] Comment on above: According to the [place] [employer] [employer],the reference interval for Thyroglobulin (TG) should berelated to euthyroid patients and not for patients whounderwent thyroidectomy. TG reference intervals for thesepatients depend on the residual mass of the thyroid tissueleft after surgery. Establishing a post-operative baselineis recommended. The assay limit of quantitation is 0.1ng/mLThyroglobulin measured by Mary Jane Ivan ImmunometricAssay Estimated GFR (MDRD) Amer 103 mL/min >60 [facility] Comment on above: GFR Calc Estimated GFR (MDRD) Non-Af Amer 85 mL/min >60 [facility] Comment on above: Non- GFR Calc Free Triiodothyronine (T3) pg/dL 2.5 pg/mL 2.18-3.98 [facility] Thyroid Stimulating Hormone (TSH) 0.56 uIU/mL 0.358-3.74 [facility] Platelets bldOrdered By: Gabriela Lantigua on 07-11-2023 Platelets (Bld) [#/Vol] 203 10*3/uL 150-450 [facility] Serum or plasma albumin violeta urement (mass/volume)Ordered By: Katlyn Lantigua on 07-11-2023 Albumin [Mass/Vol] 3.3 g/dL 3.2-5.0 [facility] Serum or plasma albumin/glob ulin mass ratioOrdered By: Katlyn Lantigua on 07-11-2023 Albumin/Globulin [Mass ratio] 0.9 {ratio} 0.9-2.4 [facility] Serum or plasma calcium violeta urement (mass/volume)Ordered By: Katlyn Lantigua on 07-11-2023 Calcium [Mass/Vol] 8.6 mg/dL 8.5-10.1 [facility] Serum or plasma creatinine m easurement (mass/volume)Ordered By: Katlyn Lantigua on 07-11-2023 Creatinine [Mass/Vol] 0.92 mg/dL 0.70-1.30 [facility] Comment on above: The validity of the calculated GFR & GFRAA in patients over 70 years has not been determined. Clinical correlation is essential. Serum or plasma thyroperoxid ase antibody assay (units/volume)Ordered By: Katlyn Lantigua on 07-11-2023 TPO Ab Qn [IU]/mL 0-34 [facility] Comment on above: Performed at: [address] [id number] Director: Ajit Wang PhD, Phone: [phone] Serum or plasma urea nitroge n measurement (mass/volume)Ordered By: Katlyn Lantigua on 07-11-2023 Urea nitrogen [Mass/Vol] 18 mg/dL 7-18 [facility] Thin prep Papanicolaou smear with manual screeningOrdered By: Katlyn Lantigua on 07-11-2023 Thin prep Papanicolaou smear with manual screening 20 U/L 15-37 [facility] Thin prep Papanicolaou smear with manual screening 5 5-15 [facility] Bacteria identified Respirat ory culture Nom (Unsp spec)Ordered By: Dr. Latham on 11-11-2022 Respiratory Culture Haemophilus influenzae [facility] Gram stain for investigation of transfusion reactionOrdered By: Dr. Latham on 11-10-2022 Microscopic observation Gram stain Nom (Unsp spec) [facility] Absolute lymphocyte countOrd ered By: Dr. Lantigua on 09-20-2022 Lymphocytes Auto (Unsp spec) [#/Vol] 1.74 10*3/uL 0.83-4.51 [facility] Basophil percentageOrdered B y: Dr. Lantigua on 09-20-2022 Basophils/100 WBC (Bld) 0.4 % 0-1 [facility] Bilirubin [Mass/Vol] 0.50 mg/dL 0.20-1.00 [facility] Comment on above: For patients on eltr ombopag therapy, use of Dimension Karthaus TBIL is not recommended. Chloride [Moles/Vol] 105 mmol/L 98-107 [facility] Eosinophils/100 WBC (Bld) 2.4 % 0-5 [facility] Glucose [Mass/Vol] 106 mg/dL 74-106 [facility] Comment on above: Fasting Glucose resu lt from 100 to 125 mg/dL suggests IMPAIRED HOMEOSTASIS per A.D.A. criteria. Neutrophils (Bld) [#/Vol] 4.6 10*3/uL 2.0-7.7 [facility] Neutrophils/100 WBC (Bld) 63.7 % 47-70 [facility] Potassium [Moles/Vol] 4.4 mmol/L 3.5-5.1 [facility] Protein [Mass/Vol] 6.5 g/dL 6.4-8.2 [facility] Sodium [Moles/Vol] 138 mmol/L 136-145 [facility] WBC (Bld) [#/Vol] 7.1 10*3/uL 4.4-11.0 [facility] Blood erythrocytes count (nu mber/volume)Ordered By: Dr. Lantigua on 09-20-2022 RBC (Bld) [#/Vol] 4.43 10*6/uL 4.6-6.2 [facility] Blood hemoglobin measurement (mass/volume)Ordered By: Dr. Lantigua on 09-20-2022 Hemoglobin (Bld) [Mass/Vol] 11.6 g/dL 13.0-16.5 [facility] Blood lymphocytes/100 leukoc ytesOrdered By: Dr. Lantigua on 09-20-2022 Lymphocytes/100 WBC (Bld) 24.4 % 19-41 [facility] Blood monocytes/100 leukocyt esOrdered By: Dr. Lantigua on 09-20-2022 Monocytes/100 WBC (Bld) 8.5 % 0-10 [facility] Blood platelet mean volumeOr dered By: Dr. Lantigua on 09-20-2022 Platelet mean volume (Bld) [Entitic vol] 10.1 fL 6.2-12.0 [facility] Determination of erythrocyte mean corpuscular volume (MCV)Ordered By: Dr. Lantigua on 09-20-2022 MCV (RBC) [Entitic vol] 85.1 fL 80-94 [facility] Hematocrit Auto (Bld) [Volum e fraction]Ordered By: Dr. Lantigua on 09-20-2022 Hematocrit (Bld) [Volume fraction] 37.7 % 40-54 [facility] Laboratory - Chemistry and C hemistry - challengeOrdered By: Dr. Lantigua on 09-20-2022 ALP [Catalytic activity/Vol] 76 U/L 45-117 [facility] ALT [Catalytic activity/Vol] 27 U/L 16-61 [facility] CO2 [Moles/Vol] 25.0 mmol/L 21.0-32.0 [facility] Globulin (S) [Mass/Vol] 3.2 g/dL 2.2-4.2 [facility] Magnesium [Mass/Vol] 1.6 mg/dL 1.6-2.6 [facility] Urea nitrogen/Creatinine [Mass ratio] 13.6 mg/mg 10-20 [facility] Laboratory - Hematology and Cell countsOrdered By: Dr. Lantigua on 09-20-2022 Erythrocyte distribution width (RBC) [Entitic vol] 44.3 fL 35.1-43.9 [facility] Erythrocyte distribution width (RBC) [Ratio] 14.2 % 11.6-14.6 [facility] Immature granulocytes/100 WBC (Bld) 0.600 % 0.0-0.9 [facility] Comment on above: IG% - Immature Granu locytes (promyelocytes, myelocytes and metamyelocytes) > 1% indicates that a LEFT SHIFT is Present. MCH (RBC) [Entitic mass] 26.2 pg 27.0-32.0 [facility] Nucleated RBC/100 WBC (Bld) [Ratio] 0 % 0-5 [facility] MCHC Auto (RBC) [Mass/Vol]Or dered By: Dr. Lantigua on 09-20-2022 MCHC (RBC) [Mass/Vol] 30.8 g/dL 32-36 [facility] No Panel InformationOrdered By: Dr. Lantigua on 09-20-2022 Estimated GFR (MDRD) Amer 121 mL/min >60 [facility] Comment on above: GFR Calc Estimated GFR (MDRD) Non-Af Amer 100 mL/min >60 [facility] Comment on above: Non- GFR Calc Thyroid Stimulating Hormone (TSH) 0.80 uIU/mL 0.358-3.74 [facility] Platelets bldOrdered By: Dr. Lantigua on 09-20-2022 Platelets (Bld) [#/Vol] 209 10*3/uL 150-450 [facility] Serum or plasma albumin violeta urement (mass/volume)Ordered By: Dr. Lantigua on 09-20-2022 Albumin [Mass/Vol] 3.3 g/dL 3.2-5.0 [facility] Serum or plasma albumin/glob ulin mass ratioOrdered By: Dr. Lantigua on 09-20-2022 Albumin/Globulin [Mass ratio] 1.0 {ratio} 0.9-2.4 [facility] Serum or plasma calcium violeta urement (mass/volume)Ordered By: Dr. Lantigua on 09-20-2022 Calcium [Mass/Vol] 8.9 mg/dL 8.5-10.1 [facility] Serum or plasma creatinine m easurement (mass/volume)Ordered By: Dr. Lantigua on 09-20-2022 Creatinine [Mass/Vol] 0.81 mg/dL 0.70-1.30 [facility] Comment on above: The validity of the calculated GFR & GFRAA in patients over 70 years has not been determined. Clinical correlation is essential. Serum or plasma urea nitroge n measurement (mass/volume)Ordered By: Dr. Lantigua on 09-20-2022 Urea nitrogen [Mass/Vol] 11 mg/dL 7-18 [facility] Thin prep Papanicolaou smear with manual screeningOrdered By: Dr. Lantigua on 09-20-2022 Thin prep Papanicolaou smear with manual screening 19 U/L 15-37 [facility] Thin prep Papanicolaou smear with manual screening 8 5-15 [facility] CNOVon 09-01-2022 CNOV Office Visit (UCWSTR ) ABDOUL ALICEA ([id number]) 1950 M Date Time Provider Department 09/01/22 11:15 AM JOSSIE PACKER [facility] During your visit today, we recorded the following information about you: Temperature Pulse Respiration Blood pressure 98.8 degrees 78/minute 16/minute 128/74 Weight 104.5 kg Jossie Packer APRN.DATABASE REPORT WRITER 09/01/2022 1:12 PM Signed This note was created using [employer]. Subjective Abdoul Alicea is a 71 year old male. 71 year old male with PMH GERD presents for complaints of cough and chest congestion. Acute onset 5 weeks ago + cough Endorses feels moist but states unable to produce sputum. Denies accompanying URI sx Denies fever or chills Denies CP. Denies hemoptysis. Denies dyspnea. Denies abdominal pain. Denies N/V/D Of note, he had a hip replacement 5 weeks ago . Quit smoking 35 years ago. The history is provided by the patient. No speech language assistant was used. Cough This is a new problem. The current episode started more than 1 week ago. The problem occurs constantly. The problem has been gradually worsening. The cough is Non-productive. There has been no fever. Associated symptoms include shortness of breath (with coughing and winded with activity). Pertinent negatives include no chest pain, no chills, no sweats, no weight loss, no ear congestion, no ear pain, no headaches, no rhinorrhea, no sore throat, no myalgias, no wheezing and no eye redness. He has tried nothing for the symptoms. The treatment provided no relief. He is not a smoker. His past medical history does not include bronchitis, pneumonia, bronchiectasis, COPD, emphysema or asthma. No past medical history on file. No past surgical history on file. ALLERGIES Gabapentin MEDICATIONS albuterol HFA (PROVENTIL HFA, VENTOLIN HFA) 90 mcg/actuation inhaler Inhale as instructed. pantoprazole DR (PROTONIX) 40 mg tablet Take 40 mg by mouth. meloxicam (MOBIC) 15 mg tablet Take 15 mg by mouth. azithromycin (ZITHROMAX) 250 mg tablet Take 2 tablets by mouth once daily for 1 day, THEN 1 tablet once daily for 4 days. amoxicillin-clavulanic acid (AUGMENTIN) 875-125 mg per tablet Take 1 tablet by mouth twice daily for 5 days. benzonatate (TESSALON PERLES) 100 mg capsule Take 1 capsule by mouth three times daily as needed for cough. No family history on file. Social History Tobacco Use Smoking status: Former Types: Cigarettes Smokeless tobacco: Never Substance Use Topics Alcohol use: Never Drug use: Never Review of Systems Constitutional: Positive for fatigue. Negative for chills, fever and weight loss. HENT: Positive for congestion. Negative for ear pain, rhinorrhea and sore throat. Eyes: Negative for pain, discharge, redness and itching. Respiratory: Positive for cough and shortness of breath (with coughing and winded with activity). Negative for apnea, choking, chest tightness and wheezing. Cardiovascular: Negative for chest pain. Gastrointestinal: Negative for abdominal pain, diarrhea, nausea and vomiting. Musculoskeletal: Negative for arthralgias, back pain and myalgias. Skin: Negative for color change, pallor, rash and wound. Allergic/Immunologic: Negative for environmental allergies, food allergies and immunocompromised state. Neurological: Negative for dizziness, facial asymmetry and headaches. Hematological: Negative for adenopathy. Does not bruise/bleed easily. Psychiatric/Behavioral : Negative for agitation and behavioral problems. Objective BP 128/74 Pulse 78 Temp 37.1 ?C (98.8 ?F) (Tympanic) Resp 16 Wt 104.5 kg (230 lb 6.4 oz) SpO2 96% Physical Exam Vitals and nursing note reviewed. Constitutional: General: He is not in acute distress. Appearance: Normal appearance. He is not ill-appearing, toxic-appearing or diaphoretic. Comments: Elderly, well appearing male HENT: Head: Normocephalic and atraumatic. Right Ear: External ear normal. Left Ear: External ear normal. Nose: Nose normal. No congestion or rhinorrhea. Mouth/Throat: Mouth: Mucous membranes are moist. Pharynx: Oropharynx is clear. No oropharyngeal exudate or posterior oropharyngeal erythema. Eyes: General: Right eye: No discharge. Left eye: No discharge. Extraocular Movements: Extraocular movements intact. Conjunctiva/sclera: Conjunctivae normal. Pupils: Pupils are equal, round, and reactive to light. Cardiovascular: Rate and Rhythm: Normal rate and regular rhythm. Pulses: Normal pulses. Heart sounds: Normal heart sounds. No murmur heard. No friction rub. No gallop. Pulmonary: Effort: Pulmonary effort is normal. No respiratory distress. Breath sounds: Normal breath sounds. No stridor. No wheezing, rhonchi or rales. Chest: Chest wall: No tenderness. Abdominal: General: Abdomen is flat. There is no distension. Palpations: Abdomen is soft. There is no (more content not included)... Normal [facility] XR CHEST 2V FRONTAL/LATon XR CHEST 2V FRONTAL/LAT * * *Final Report* * * DATE OF EXAM: Sep 01 2022 11:34AM WOX 5291 - XR CHEST 2V FRONTAL/LAT / PROCEDURE REASON: Acute cough * * * * Physician Interpretation * * * * EXAMINATION: CHEST RADIOGRAPH (2 VIEW FRONTAL and LATERAL) CLINICAL HISTORY: Acute cough MQ: XC2_6 EXAM DATE/TIME: 09/01/2022 11:34 AM COMPARISON: No relevant prior studies available. RESULT: Lines, tubes, and devices: None. Lungs and pleura: Patchy or bandlike opacities seen in the left lower lung. Probably mild atelectasis in the right middle lobe. No mass lesion identified. No pleural effusions or pneumothorax. Cardiomediastinal silhouette: The cardiac silhouette is within normal limits, with tortuosity of the thoracic aorta. Bones and soft tissues: There are degenerative changes in the spine. IMPRESSION: Patchy or bandlike opacities in the left lower lung, pulmonary infiltrates versus atelectasis. Boat Painter: PSCLila Transcribe Date/Time: Sep 01 2022 12:11P Dictated by : LORIE VILLRAREAL MD This examination was interpreted and the report reviewed and electronically signed by: LORIE VILLARREAL MD on Sep 01 2022 12:13PM EST [id number] Normal [facility] XR Chest PA and Lateralon IMPRESSION: Patchy or bandlike opacities in the left lower lung, pulmonary infiltrates versus atelectasis. Boat Painter: PSCB Transcribe Date/Time: Sep 01 2022 12:11P Dictated by : LORIE VILLARREAL MD This examination was interpreted and the report reviewed and electronically signed by: LORIE VILLARREAL MD on Sep 01 2022 12:13PM EST DIVISION OF RADIOLOGY * * *Final Report* * * DATE OF EXAM: Sep 01 2022 11:34AM WOX 5291 - XR CHEST 2V FRONTAL/LAT / PROCEDURE REASON: Acute cough * * * * Physician Interpretation * * * * EXAMINATION: CHEST RADIOGRAPH (2 VIEW FRONTAL & LATERAL) CLINICAL HISTORY: Acute cough MQ: XC2_6 EXAM DATE/TIME: 09/01/2022 11:34 AM COMPARISON: No relevant prior studies available. RESULT: Lines, tubes, and devices: None. Lungs and pleura: Patchy or bandlike opacities seen in the left lower lung. Probably mild atelectasis in the right middle lobe. No mass lesion identified. No pleural effusions or pneumothorax. Cardiomediastinal silhouette: The cardiac silhouette is within normal limits, with tortuosity of the thoracic aorta. Bones and soft tissues: There are degenerative changes in the spine. DIVISION OF RADIOLOGY Provider, Elisabet Jacek Espinoza - 09/01/2022 * * *Final Report* * * DATE OF EXAM: Sep 01 2022 11:34AM WOX 5291 - XR CHEST 2V FRONTAL/LAT / PROCEDURE REASON: Acute cough * * * * Physician Interpretation * * * * EXAMINATION: CHEST RADIOGRAPH (2 VIEW FRONTAL & LATERAL) CLINICAL HISTORY: Acute cough MQ: XC2_6 EXAM DATE/TIME: 09/01/2022 11:34 AM COMPARISON: No relevant prior studies available. RESULT: Lines, tubes, and devices: None. Lungs and pleura: Patchy or bandlike opacities seen in the left lower lung. Probably mild atelectasis in the right middle lobe. No mass lesion identified. No pleural effusions or pneumothorax. Cardiomediastinal silhouette: The cardiac silhouette is within normal limits, with tortuosity of the thoracic aorta. Bones and soft tissues: There are degenerative changes in the spine. IMPRESSION IMPRESSION: Patchy or bandlike opacities in the left lower lung, pulmonary infiltrates versus atelectasis. Boat Painter: PSCB Transcribe Date/Time: Sep 01 2022 12:11P Dictated by : LORIE VILLARREAL MD This examination was interpreted and the report reviewed and electronically signed by: LORIE VILLARREAL MD on Sep 01 2022 12:13PM EST [facility] Radiology Study observation (narrative) [facility] XR Chest PA and LateralOrder ed By: [facility] Provider on 09-01-2022 [facility] Basophil percentageOrdered B y: Dr. Sellers on 08-02-2022 Chloride [Moles/Vol] 106 mmol/L 98-107 [facility] Glucose [Mass/Vol] 120 mg/dL 74-106 [facility] Comment on above: Fasting Glucose resu lt from 100 to 125 mg/dL suggests IMPAIRED HOMEOSTASIS per A.D.A. criteria. Potassium [Moles/Vol] 4.2 mmol/L 3.5-5.1 [facility] Sodium [Moles/Vol] 138 mmol/L 136-145 [facility] WBC (Bld) [#/Vol] 9.2 10*3/uL 4.4-11.0 [facility] Blood erythrocytes count (nu mber/volume)Ordered By: Dr. Sellers on 08-02-2022 RBC (Bld) [#/Vol] 3.63 10*6/uL 4.6-6.2 [facility] Blood hemoglobin measurement (mass/volume)Ordered By: Dr. Sellers on 08-02-2022 Hemoglobin (Bld) [Mass/Vol] 9.8 g/dL 13.0-16.5 [facility] Blood platelet mean volumeOr dered By: Dr. Sellers on 08-02-2022 Platelet mean volume (Bld) [Entitic vol] 9.7 fL 6.2-12.0 [facility] Determination of erythrocyte mean corpuscular volume (MCV)Ordered By: Dr. Sellers on 08-02-2022 MCV (RBC) [Entitic vol] 84.0 fL 80-94 [facility] Hematocrit Auto (Bld) [Volum e fraction]Ordered By: Dr. Sellers on 08-02-2022 Hematocrit (Bld) [Volume fraction] 30.5 % 40-54 [facility] Laboratory - Chemistry and C hemistry - challengeOrdered By: Dr. Sellers on 08-02-2022 CO2 [Moles/Vol] 26.0 mmol/L 21.0-32.0 [facility] Urea nitrogen/Creatinine [Mass ratio] 20.5 mg/mg 10-20 [facility] Laboratory - Hematology and Cell countsOrdered By: Dr. Sellers on 08-02-2022 Erythrocyte distribution width (RBC) [Entitic vol] 42.4 fL 35.1-43.9 [facility] Erythrocyte distribution width (RBC) [Ratio] 13.7 % 11.6-14.6 [facility] MCH (RBC) [Entitic mass] 27.0 pg 27.0-32.0 [facility] MCHC Auto (RBC) [Mass/Vol]Or dered By: Dr. Sellers on 08-02-2022 MCHC (RBC) [Mass/Vol] 32.1 g/dL 32-36 [facility] No Panel InformationOrdered By: Dr. Sellers on 08-02-2022 Estimated Creatinine Clearance Calc 68.94 ml/min [facility] Estimated GFR (MDRD) Amer 125 mL/min >60 [facility] Comment on above: GFR Calc Estimated GFR (MDRD) Non-Af Amer 104 mL/min >60 [facility] Comment on above: Non- GFR Calc Platelets bldOrdered By: Dr. Sellers on 08-02-2022 Platelets (Bld) [#/Vol] 158 10*3/uL 150-450 [facility] Serum or plasma calcium violeta urement (mass/volume)Ordered By: Dr. Sellers on 08-02-2022 Calcium [Mass/Vol] 8.7 mg/dL 8.5-10.1 [facility] Serum or plasma creatinine m easurement (mass/volume)Ordered By: Dr. Sellers on 08-02-2022 Creatinine [Mass/Vol] 0.78 mg/dL 0.70-1.30 [facility] Comment on above: The validity of the calculated GFR & GFRAA in patients over 70 years has not been determined. Clinical correlation is essential. Serum or plasma urea nitroge n measurement (mass/volume)Ordered By: Dr. Sellers on 08-02-2022 Urea nitrogen [Mass/Vol] 16 mg/dL 7-18 [facility] Thin prep Papanicolaou smear with manual screeningOrdered By: Dr. Sellers on 08-02-2022 Thin prep Papanicolaou smear with manual screening 6 5-15 [facility] Glucose Glucometer (BldC) [M ass/Vol]Ordered By: Dr. Sellers on 08-01-2022 Glucose [Mass/Vol] 102 mg/dL 74-106 [facility] Comment on above: MANAGEMENT OF PATIEN T CARE PER NURSING PROTOCOL No Panel InformationOrdered By: Dr. Sellers on 07-28-2022 Nasal Screen MRSA/MSSA [facility] Laboratory - Chemistry and C hemistry - challengeOrdered By: Dr. Boo on 07-26-2022 Magnesium [Mass/Vol] 2.1 mg/dL 1.6-2.6 [facility] Laboratory - Chemistry and C hemistry - challengeOrdered By: Dr. Boo on 06-17-2022 Magnesium [Mass/Vol] 1.9 mg/dL 1.6-2.6 [facility] Absolute lymphocyte countOrd ered By: Dr. Sellers on 06-14-2022 Lymphocytes Auto (Unsp spec) [#/Vol] 1.52 10*3/uL 0.83-4.51 [facility] Basophil percentageOrdered B y: Dr. Sellers on 06-14-2022 Basophils/100 WBC (Bld) 0.3 % 0-1 [facility] Bilirubin [Mass/Vol] 0.60 mg/dL 0.20-1.00 [facility] Comment on above: For patients on eltr ombopag therapy, use of Dimension Karthaus TBIL is not recommended. Eosinophils/100 WBC (Bld) 2.4 % 0-5 [facility] Neutrophils (Bld) [#/Vol] 4.6 10*3/uL 2.0-7.7 [facility] Neutrophils/100 WBC (Bld) 67.2 % 47-70 [facility] Protein [Mass/Vol] 7.2 g/dL 6.4-8.2 [facility] Blood lymphocytes/100 leukoc ytesOrdered By: Dr. Sellers on 06-14-2022 Lymphocytes/100 WBC (Bld) 22.4 % 19-41 [facility] Blood monocytes/100 leukocyt esOrdered By: Dr. Sellers on 06-14-2022 Monocytes/100 WBC (Bld) 7.4 % 0-10 [facility] Laboratory - Chemistry and C hemistry - challengeOrdered By: Dr. Sellers on 06-14-2022 ALP [Catalytic activity/Vol] 96 U/L 45-117 [facility] ALT [Catalytic activity/Vol] 20 U/L 16-61 [facility] Globulin (S) [Mass/Vol] 3.3 g/dL 2.2-4.2 [facility] Laboratory - Hematology and Cell countsOrdered By: Dr. Sellers on 06-14-2022 Immature granulocytes/100 WBC (Bld) 0.300 % 0.0-0.9 [facility] Comment on above: IG% - Immature Granu locytes (promyelocytes, myelocytes and metamyelocytes) > 1% indicates that a LEFT SHIFT is Present. Nucleated RBC/100 WBC (Bld) [Ratio] 0 % 0-5 [facility] Serum or plasma albumin violeta urement (mass/volume)Ordered By: Dr. Sellers on 06-14-2022 Albumin [Mass/Vol] 3.9 g/dL 3.2-5.0 [facility] Serum or plasma albumin/glob ulin mass ratioOrdered By: Dr. Sellers on 06-14-2022 Albumin/Globulin [Mass ratio] 1.2 {ratio} 0.9-2.4 [facility] Thin prep Papanicolaou smear with manual screeningOrdered By: Dr. Sellers on 06-14-2022 Thin prep Papanicolaou smear with manual screening 15 U/L 15-37 [facility] Whole blood hemoglobin A1c/t otal hemoglobin ratio (mass fraction)Ordered By: Dr. Sellers on 06-14-2022 HbA1c (Bld) [Mass fraction] 5.6 % 3.8-5.6 [facility] Comment on above: Normal < 5.7 % Predi abetic 5.7 - 6.4 % Diabetic >or= 6.5 % Please note range changes. No Panel Informationon 12-31 D-Dimer Quantitative (PE/DVT) 0.48 FEU/ug/m 0.27-0.49 [facility] Work Phone: Comment on above: NORMAL D-Dimer level (<0.50) indicates no DVT or PE. Absolute lymphocyte counton 10-20-2021 Lymphocytes Auto (Unsp spec) [#/Vol] 1.60 10*3/uL 0.83-4.51 [facility] Work Phone: Basophil percentageon 2021 Basophils/100 WBC (Bld) 0.5 % 0-1 [facility] Work Phone: Bilirubin [Mass/Vol] 0.60 mg/dL 0.20-1.00 [facility] Work Phone: Comment on above: For patients on eltr ombopag therapy, use of Dimension Karthaus TBIL is not recommended. Chloride [Moles/Vol] 105 mmol/L 98-107 [facility] Work Phone: Eosinophils/100 WBC (Bld) 2.8 % 0-5 [facility] Work Phone: Glucose [Mass/Vol] 112 mg/dL 74-106 [facility] Work Phone: Comment on above: Fasting Glucose resu lt from 100 to 125 mg/dL suggests IMPAIRED HOMEOSTASIS per A.D.A. criteria. Neutrophils (Bld) [#/Vol] 4.1 10*3/uL 2.0-7.7 [facility] Work Phone: Neutrophils/100 WBC (Bld) 62.5 % 47-70 [facility] Work Phone: Potassium [Moles/Vol] 4.6 mmol/L 3.5-5.1 [facility]: Protein [Mass/Vol] 7.4 g/dL 6.4-8.[facility]: Sodium [Moles/Vol] 138 mmol/L 136-145 [facility] Work Phone: WBC (Bld) [#/Vol] 6.5 10*3/uL 4.4-11.0 [facility] Work Phone: [phone] Blood erythrocytes count (nu mber/volume)on 10-20-2021 RBC (Bld) [#/Vol] 4.74 10*6/uL 4.6-6.2 [facility]: Blood hemoglobin measurement (mass/volume)on 10-20-2021 Hemoglobin (Bld) [Mass/Vol] 12.9 g/dL 13.0-16.5 [facility] Work Phone: Blood lymphocytes/100 leukoc yteson 10-20-2021 Lymphocytes/100 WBC (Bld) 24.7 % 19-41 [facility] Work Phone: Blood monocytes/100 leukocyt eson 10-20-2021 Monocytes/100 WBC (Bld) 9.0 % 0-10 [facility] Work Phone: Blood platelet mean volumeon 10-20-2021 Platelet mean volume (Bld) [Entitic vol] 10.1 fL 6.2-12.0 [facility] Work Phone: Determination of erythrocyte mean corpuscular volume (MCV)on 10-20-2021 MCV (RBC) [Entitic vol] 86.9 fL 80-94 [facility] Work Phone: Hematocrit Auto (Bld) [Volum e fraction]on 10-20-2021 Hematocrit (Bld) [Volume fraction] 41.2 % 40-54 [facility] Work Phone: Laboratory - Chemistry and C hemistry - challengeon 10-20-2021 ALP [Catalytic activity/Vol] 78 U/L 45-117 [facility] Work Phone: ALT [Catalytic activity/Vol] 28 U/L 16-61 [facility] Work Phone: CK [Catalytic activity/Vol] 73 U/L 39-308 [facility] Work Phone: CO2 [Moles/Vol] 28.0 mmol/L 21.0-32.0 [facility] Work Phone: Globulin (S) [Mass/Vol] 3.5 g/dL 2.2-4.2 [facility] Work Phone: Natriuretic peptide B (Bld) [Mass/Vol] 47.9 pg/mL 0-100 [facility] Work Phone: Urea nitrogen/Creatinine [Mass ratio] 17.0 mg/mg 10-20 [facility] Work Phone: Laboratory - Hematology and Cell countson 10-20-2021 Erythrocyte distribution width (RBC) [Entitic vol] 43.1 fL 35.1-43.9 [facility] Work Phone: Erythrocyte distribution width (RBC) [Ratio] 13.5 % 11.6-14.6 [facility] Work Phone: Immature granulocytes/100 WBC (Bld) 0.500 % 0.0-0.9 [facility] Work Phone: Comment on above: IG% - Immature Granu locytes (promyelocytes, myelocytes and metamyelocytes) > 1% indicates that a LEFT SHIFT is Present. MCH (RBC) [Entitic mass] 27.2 pg 27.0-32.0 [facility] Work Phone: Nucleated RBC/100 WBC (Bld) [Ratio] 0 % 0-5 [facility] Work Phone: MCHC Auto (RBC) [Mass/Vol]on 10-20-2021 MCHC (RBC) [Mass/Vol] 31.3 g/dL 32-36 [facility] Work Phone: No Panel Informationon 10-20 Estimated GFR (MDRD) Amer 95 mL/min >60 [facility] Work Phone: Comment on above: GFR Calc Estimated GFR (MDRD) Non-Af Amer 78 mL/min >60 [facility] Work Phone: Comment on above: Non- GFR Calc Total Iron Binding Capacity 295 ug/dL 250-450 [facility] Work Phone: Platelets bldon 10-20-2021 Platelets (Bld) [#/Vol] 232 10*3/uL 150-450 [facility] Work Phone: Serum or plasma C reactive p rotein measurement (mass/volume)on 10-20-2021 CRP [Mass/Vol] mg/L 0.0-3.0 [facility] Work Phone: Comment on above: C-Reactive Protein ( CRP) provides useful information for thediagnosis, therapy and monitoring of inflammatory processesand associated diseases. For the evaluation of Relative Riskfor Cardiovascular Disease, a High Sensitivity CRP (HSCRP)should be ordered. Serum or plasma albumin violeta urement (mass/volume)on 10-20-2021 Albumin [Mass/Vol] 3.9 g/dL 3.2-5.0 [facility] Work Phone: Serum or plasma albumin/glob ulin mass ratioon 10-20-2021 Albumin/Globulin [Mass ratio] 1.1 {ratio} 0.9-2.4 [facility] Work Phone: Serum or plasma calcium violeta urement (mass/volume)on 02-23-2022 Calcium [Mass/Vol] 9.2 mg/dL 8.5-10.1 [facility] Work Phone: Serum or plasma creatinine m easurement (mass/volume)on 10-20-2021 Creatinine [Mass/Vol] 1.00 mg/dL 0.70-1.30 [facility] Work Phone: Comment on above: The validity of the calculated GFR & GFRAA in patients over 70 years has not been determined. Clinical correlation is essential. Serum or plasma ferritin jay surement (mass/volume)on 10-20-2021 Ferritin [Mass/Vol] 105 ng/mL 26-388 [facility] Work Phone: Serum or plasma urea nitroge n measurement (mass/volume)on 10-20-2021 Urea nitrogen [Mass/Vol] 17 mg/dL 7-18 [facility] Work Phone: Thin prep Papanicolaou smear with manual screeningon 10-20-2021 Thin prep Papanicolaou smear with manual screening 17 U/L 15-37 [facility] Work Phone: Thin prep Papanicolaou smear with manual screening 5 5-15 [facility] Work Phone: D dimeron 10-04-2021 D dimer 520 ng/mL FEU High <500 [facility] Comment on above: Result Comment: 500 ng/mL FEU is the D Dimer cutoff to exclude DVT (deep vein thrombosis) and PE (pulmonary embolism) in patients with a low pre test probability. Supplemental Comment: In patients over 50 years with a low pre test probability for DVT and/or PE, an age adjusted D dimer cutoff can be calculated as [age x 10] ng/mL FEU. For example, a patient of 88 years would have an age adjusted D dimer cutoff of 880 ng/mL FEU. For patients with a suspected DVT, a D dimer level below 500 ng/mL FEU has a negative predictive value of >98.9%, a sensitivity of >96.9% and a specificity of >35.7%. For patients with a suspected PE, a D dimer level below 500 ng/mL FEU has a negative predictive value of >98.5%, and a sensitivity of >96.5% and a specificity of >38.8%. Reference: Lyndon M, et al. FEMI 2014 311:1117 and Kulwinder Randle N, et al. Arlen Int Med 2016 165:253. Performed By: #### D DMER #### [facility] [address] [place], [place] [address] Laboratory - Microbiology an d Antimicrobial susceptibilityon 09-10-2021 SARS-CoV-2 (COVID-19) RNA CLIFFORD+probe Ql (Unsp spec) Not detected Not Detect [facility] Work Phone: Comment on above: Normal Reference Ran ge: Not DetectedMethod:(RT-PCR) real-time reverse transcriptase PCRLuminex HUGO Instrument*The Food and Drug Administration (FDA) has issued an Emergency Use Authorization (EAU) for the HUGO SARS-CoV-2 Assay for the rapid detection of the virus that causes COVID-19. This test has been validated, but the FDAs independent review of this validation is pending.*Negative results do not preclude infection and should not be used as the sole basis for treatment or patient management. Optimum specimen types and timing for peak viral levels during infections caused by SARS-CoV-2 have not been determined. Collection of multiple specimens from the same patient may be necessary to detect the virus. The possibility of a false negative result should be considered if the patient has clinical presentation or has had recent exposure. No Panel Information Nasal Screen MRSA/MSSA [facility] Work Phone: Vital Signs Date Time Vital Sign Value Performing Clinician Faci lity 09-03-2024 07:57-0500 Body height 182.[address] Katlyn Lantigua MD Work Phone: [facility] 09-03-2024 07:57-0500 Body mass index (BMI) [Ratio] 31.5 kg/m2 Dr. Katlyn Lantigua MD Work Phone: [facility] 09-03-2024 07:57-0500 Body temperature 97.3 [degF] Dr. Katlyn Lantigua MD Work Phone: [facility] 09-03-2024 07:57-0500 Body weight 105.[address] Katlyn Lantigua MD Work Phone: [facility] 09-03-2024 07:57-0500 Diastolic blood pressure 73 mm[Hg] Dr. Katlyn Lantigua MD Work Phone: [facility] 09-03-2024 07:57-0500 Heart rate 96 /min Dr. Katlyn Lantigua MD Work Phone: [facility] 09-03-2024 07:57-0500 Respiratory rate 20 /min Dr. Katlyn Lantigua MD Work Phone: [facility] 09-03-2024 07:57-0500 SaO2% (BldA) [Mass fraction] 98 % Dr. Katlyn Lantigua MD Work Phone: [facility] 09-03-2024 07:57-0500 Systolic blood pressure 116 mm[Hg] Dr. Katlyn Lantigua MD Work Phone: [facility] 12-26-2023 09:18-0400 Body mass index (BMI) [Ratio] 31.7 kg/m2 [facility] 12-26-2023 09:18-0400 Body temperature 97.7 [degF] [facility] 12-26-2023 09:18-0400 Diastolic blood pressure 68 mm[Hg] [facility] 12-26-2023 09:18-0400 Heart rate 72 /min [facility] 12-26-2023 09:18-0400 Respiratory rate 18 /min [facility] 12-26-2023 09:18-0400 Systolic blood pressure 119 mm[Hg] [facility] 11-27-2023 00:35-0400 Body weight 106.14 kg [facility] 11-21-2023 08:56-0400 Body mass index (BMI) [Ratio] 31.7 kg/m2 [facility] 11-21-2023 08:56-0400 Body temperature 96.8 [degF] [facility] 11-21-2023 08:56-0400 Diastolic blood pressure 71 mm[Hg] [facility] 11-21-2023 08:56-0400 Heart rate 70 /min [facility] 11-21-2023 08:56-0400 Respiratory rate 20 /min [facility] 11-21-2023 08:56-0400 Systolic blood pressure 110 mm[Hg] [facility] 10-27-2023 00:07-0500 Body weight 106.14 kg [facility] 10-24-2023 08:53-0500 Body mass index (BMI) [Ratio] 31.7 kg/m2 [facility] 10-24-2023 08:53-0500 Body temperature 97.5 [degF] [facility] 10-24-2023 08:53-0500 Diastolic blood pressure 97 mm[Hg] [facility] 10-24-2023 08:53-0500 Heart rate 75 /min [facility] 10-24-2023 08:53-0500 Respiratory rate 18 /min [facility] 10-24-2023 08:53-0500 Systolic blood pressure 160 mm[Hg] [facility] 10-03-2023 09:02-0500 Body height 182.88 cm [facility] 10-03-2023 09:02-0500 Body weight 106.14 kg [facility] 06-21-2023 18:07-0400 Body mass index (BMI) [Ratio] 29.7 kg/m2 [facility] 06-21-2023 18:07-0400 Body weight 93.89 kg [facility] 06-21-2023 18:07-0400 Diastolic blood pressure 67 mm[Hg] [facility] 06-21-2023 18:07-0400 Heart rate 82 /min [facility] 06-21-2023 18:07-0400 Respiratory rate 16 /min [facility] 06-21-2023 18:07-0400 SaO2% (BldA) [Mass fraction] 97 % [facility] 06-21-2023 18:07-0400 Systolic blood pressure 141 mm[Hg] [facility] 06-21-2023 14:42-0400 Body height 177.8 cm [facility] 06-21-2023 14:42-0400 Body temperature 98 [degF] [facility] 08-02-2022 13:59-0500 Heart rate 83 /min Dr. Katlyn Lantigua Work Phone: [facility] 08-02-2022 13:59-0500 Respiratory rate 16 /min Dr. Katlyn Lantigua Work Phone: [facility] 08-02-2022 13:06-0500 Body temperature 97.6 [degF] Dr. Katlyn Lantigua Work Phone: [facility] 08-02-2022 13:06-0500 Diastolic blood pressure 70 mm[Hg] Dr. Katlyn Lantigua Work Phone: [facility] 08-02-2022 13:06-0500 SaO2% (BldA) [Mass fraction] 96 % Dr. Katlyn Lantigua Work Phone: [facility] 08-02-2022 13:06-0500 Systolic blood pressure 135 mm[Hg] Dr. Katlyn Lantigua Work Phone: [facility] 08-01-2022 17:31-0500 Inhaled oxygen flow rate 4 L/min Dr. Katlyn Lantigua Work Phone: [facility] 08-01-2022 11:24-0500 Body height 177.[address] Katlyn Lantigua Work Phone: [facility] 08-01-2022 11:24-0500 Body mass index (BMI) [Ratio] 32.8 kg/m2 Dr. Katlyn Lantigua Work Phone: [facility] 08-01-2022 11:24-0500 Body weight [address] Katlyn Lantigua Work Phone: [facility] Encounters Encounter Date Encounter Type Care Provider Facility Start: 11-26-2024 End: 11-26-[address] Katlyn Lantigua MD Work Phone: [facility] Work Phone: Start: 11-26-2024 End: 11-26-[address] Katlyn Lantigua MD -Laboratory, Specimen Work Phone: Start: 11-26-2024 End: 11-26-2024 ambulatory Katlyn Lantigua Facility:[facility] Start: 09-17-2024 End: 09-17-[address] Diomedes Hemphill MD -[facility] Work Phone: Start: 09-17-2024 End: 09-17-2024 ambulatory Katlyn Lantigua Facility:[facility] Start: 09-10-2024 End: 09-10-[address] Diomedes Hemphill MD -[facility] Work Phone: Start: 09-10-2024 End: 09-10-2024 ambulatory Katlyn Lantigua Facility:[facility] Start: 09-03-2024 End: 09-03-2024 Emergency department patient visit Dr. Otoniel sAhraf MD -Emergency Department Work Phone: Start: 06-17-2024 ambulatory Negro Balderas Facility:[facility] Start: 06-17-2024 End: 06-17-2024 ambulatory Katlyn Lantigua Facility:[facility] Start: 04-09-2024 End: 04-09-2024 ambulatory Katlyn Lantigua Facility:[facility] Start: 04-02-2024 ambulatory Opal Cordero AUTOMOTIVE BRAKE TECHNICIAN Fa cility:[facility] Start: 03-26-2024 End: 03-27-2024 ambulatory Katlyn Lantigua Facility:[facility] Start: 02-20-2024 End: 02-25-2024 ambulatory Katlyn Lantigua Facility:[facility] Start: 01-24-2024 End: 01-24-2024 ambulatory Katlyn Lantigua Facility:[facility] Start: 01-23-2024 End: 01-26-2024 ambulatory Katlyn Jerome Facility:[facility] Start: 12-26-2023 End: 12-26-2023 ambulatory [facility] Work Phone: Start: 12-26-2023 End: 12-26-2023 Discharged Recurring [facility] Work Phone: Start: 11-21-2023 End: 11-26-2023 ambulatory [facility] Work Phone: Start: 11-21-2023 End: 11-26-2023 Discharged Recurring [facility] Work Phone: Start: 10-24-2023 End: 10-26-2023 ambulatory [facility] Work Phone: Start: 10-24-2023 End: 10-26-2023 Discharged Recurring [facility] Work Phone: Start: 07-11-2023 End: 07-11-2023 ambulatory [facility] Work Phone: Start: 07-11-2023 End: 07-11-2023 Patient encounter procedure [facility], [place] Work Phone: Start: 06-21-2023 End: 06-21-2023 Emergency department patient visit [facility] Work Phone: Start: 11-09-2022 End: 11-09-[address] Katlyn Lantigua Work Phone: [facility] Work Phone: Start: 11-09-2022 End: 11-09-[address] Katlyn Lantigua Work Phone: [facility]-Laboratory, Specimen Start: 10-11-2022 Non-patient / Non-visit Dr. Gómez Lantigua Work Phone: [facility] Start: 10-11-2022 End: 10-11-[address] Katlyn Lantigua Work Phone: [facility] Work Phone: Start: 10-11-2022 End: 10-11-[address] Katlyn Lantigua Work Phone: [facility] Start: 09-20-2022 End: 09-20-[address] Katlyn Lantigua Work Phone: [facility] Work Phone: Start: 09-20-2022 End: 09-20-[address] Katlyn Lantigua Work Phone: [facility] Start: 09-01-2022 End: 09-01-2022 ambulatory KATLYN LANTIGUA Facility:[facility] Start: 09-01-2022 End: 09-01-2022 Subsequent hospital visit by physician [facility] Work Phone: Radiology Comment on above: Acute cough [R05.1] Start: 08-01-2022 End: 08-02-2022 Evaluation and management of inpatient Dr. Katlyn Lantigua Work Phone: [facility]-Medical Surgical 3 Start: 08-01-2022 End: 08-02-[address] Katlyn Lantigua Work Phone: [facility] Work Phone: Start: 06-16-2022 End: 06-16-[address] Katlyn Lantigua Work Phone: [facility] Work Phone: Start: 06-16-2022 End: 06-16-[address] Katlyn Lantigua Work Phone: [facility]-Pulmonary Services/Neurology Start: 06-16-2022 Non-patient / Non-visit Dr. Gómez Lantigua Work Phone: [facility] Start: 12-31-2021 End: 12-31-2021 [facility] Start: 11-26-2021 End: 11-26-2021 Patient encounter procedure [facility] Start: 10-20-2021 End: 10-20-2021 Patient encounter procedure [facility] Start: 09-28-2021 Patient encounter procedure [facility] Start: 09-10-2021 End: 09-10-2021 Patient encounter procedure [facility]-Laboratory, Specimen Start: 09-10-2021 End: 09-10-2021 Patient encounter procedure [facility]Labor[facility], Specimen Procedures Date Procedure Procedure Detail Performing Clinician Start: 11-26-2024 Gram stain microscopy D joyce Lantigua MD Work Phone: Start: 11-26-2024 Microbial culture, routine Dr. Katlyn Lantigua MD Work Phone: Start: 09-03-2024 Plain x-ray of hand Dr. Katlyn Lantigua MD Work Phone: Start: 10-03-2023 Anaerobic microbial culture Start: 10-03-2023 Investigation of transfusion reaction Start: 10-03-2023 Microbial culture, routine Start: 09-01-2022 Radiologic exam ches t 2 views Jossie Packer ASSISTANT PROFESSOR SURGICAL TECHNOLOGY.DATABASE REPORT WRITER Work Phone: Start: 08-01-2022 Plain X-ray of hip Dr. Katlyn Lantigua Work Phone: Start: 08-01-2022 Total replacement of left hip joint Dr. Katlyn Lantigua Work Phone: Start: 11-26-2021 Plain chest X-ray Investigation of transfusion reaction Dr. Katlyn Lantigua Work Phone: Nasal Screen MRSA/MSSA Dr. Soham Lantigua Work Phone: Nasal Screen MRSA/MSSA Dr. Soham Lantigua Work Phone: Respiratory microbia l culture Dr. Katlyn Lantigua Work Phone: Plan of Treatment Date Care Activity Detail Author Start: 2024 RSV Vaccine (1 - 1-dose 75+ series) RSV Vaccine (1 - 1-dose 75+ series) [facility] Start: 09-03-2024 Smpl repair scalp/neck/ax/genit/trunk 2.6-7.5cm RPR S/N/AX/GEN/TRNK2.6-7.5C M [facility] Start: 09-03-2024 [facility] Start: 04-28-2024 Covid-19 Vaccine ( season) Covid-19 Vaccine () [facility] Start: 09-01-2024 Influenza vaccination Influenza Vaccine (#1) [facility] Start: 08-28-2023 Advance Directive Discussion Advance Directive Discussion [facility] Start: 06-21-2023 [facility] Start: 06-21-2023 Repair intermediate s/a/t/e 12.6-20.0cm INTMD RPR S/A/T/EXT 12.6-20 [facility] Start: 08-02-2022 Provision of overbed trapeze [facility] Start: 08-02-2022 Patient discharge [facility] Start: 08-01-2022 Oxygen therapy [facility] Start: 08-01-2022 Admission procedure [facility] Start: 08-01-2022 Anesthesia open total hip arthroplasty ANESTH HIP ARTHROPLASTY [facility] Start: 08-01-2022 Arthrp acetblr/prox fem prostc agrft/algrft TOTAL HIP ARTHROPLASTY [facility] Start: 08-01-2022 Recommendation to continue with treatment [facility] Start: 08-01-2022 Ambulation therapy management [facility] Start: 08-01-2022 Application of device [facility] Start: 08-01-2022 Assessment of risk of venous thromboembolism [facility] Start: 08-01-2022 Catheterization of vein [facility] Start: 08-01-2022 Exercises [facility] Start: 08-01-2022 End: 08-01-2022 Following clinical pathway protocol [facility] Start: 08-01-2022 Incentive spirometry [facility] Start: 08-01-2022 Introduction of urinary catheter [facility] Start: 08-01-2022 Measuring intake and output [facility] Start: 08-01-2022 Neurovascular assessment [facility] Start: 08-01-2022 Patient education [facility] Start: 08-01-2022 Procedure discontinued [facility] Start: 08-01-2022 Provision of activity privileges [facility] Start: 08-01-2022 Provision of overbed trapeze [facility] Start: 08-01-2022 Referral to occupational therapist [facility] Start: 08-01-2022 Referral to service [facility] Start: 08-01-2022 Vital signs measurements [facility] Start: 08-01-2022 Wound care [facility] Start: 08-01-2022 End: 08-01-2022 [facility] Start: 08-01-2022 Inhalation therapy procedure [facility] Start: 11-26-2021 Plain chest X-ray Chest PA and Lateral [facility] Work Phone: Start: 2014 Pneumococcal Vaccine: 65+ (1 of 1 - PCV) Pneumococcal Vaccine: 65+ (1 of 1 - PCV) [facility] Start: 11-01-1999 Shingrix Vaccine (1 of 2) Shingrix Vaccine (1 of 2) [facility] Start: 1994 Diabetes Screening Diabetes Screening [facility] Start: 1994 Screening for malignant neoplasm of colon [facility] Start: 1984 Lipid panel Lipid Screening [facility] Start: 1968 Urine microalbumin profile DTaP,Tdap,Td Vaccine (1 - Tdap) [facility] Start: 11-01-1967 Anxiety Screening Anxiety Screening [facility] Start: 11-01-1967 Depression Screening Depression Screening [facility] Start: 11-01-1967 Hepatitis C screening Hepatitis C Screening [facility] Start: 1949 Abdominal aortic aneurysm screening Abdominal Aortic Aneurysm Screening [facility] Patient Education [facility] Work Phone: Patient referral [facility] Work Phone: XR Hand GE 3 Views [facility] Immunizations Immunization Date Immunization Notes Care Provider Fa cility 06-21-2023 tetanus toxoid, redu kenisha diphtheria toxoid, and acellular pertussis vaccine, adsorbed [facility] 06-08-2016 Influenza virus vaccine [facility] Payers Date Payer Category Payer Self-pay [id number] 2021 Private Health Insurance [id number] 2021 Private Health Insurance CIGNA S UPPLEMENT CIGNA MEDICARE SUPPLEMENT [id number] 2021-Present [phone] [address] [place] [address] Indemnity [id number] 2014 Medicare [id number] 2014 Medicare MEDICARE MEDICAR E A AND B [id number] 2014-Present [phone] [address] [address] [place] [address] Medicare [id number] Unknown [facility] SEE NOTE [id number] Unknown [id number]. 2.462 Unknown [id number] 2.16.840.1.180868.3.579. 2.462 Unknown [id number] 2.16.840.1.293567.3.579. 2.462 Unknown [id number] 2.16.840.1.265740.3.579. 2.462 Unknown [id number] 2.16.840.1.135874.3.579. 2.462 Unknown [id number] 2.16.840.1.681723.3.579. 2.462 Unknown [id number] 2.16.840.1.898791.3.579. 2.462 Unknown [id number] 2.16.840.1.594130.3.579. 2.462 Unknown [id number] 2.16.840.1.577380.3.579. 2.462 Unknown [id number] 2.16.840.1.694579.3.579. 2.462 Unknown [id number] 2.16.840.1.955935.3.579. 2.462 Unknown [id number] 2.16.840.1.795908.3.579. 2.462 Unknown [id number] 2.16.840.1.910586.3.579. 2.462 Social History Date Type Detail Facility Start: 06-11-2021 End: 10-03-2023 Tobacco smoking status WYIS Unknown if ever smoked [facility] Start: 1950 Sex Assigned At Male W [facility] Start: 09-01-2022 End: 09-03-2024 Tobacco smoking status NHIS Ex-smoker [facility] History of tobacco use Current smoker [facility] History of tobacco use Cigarette Smoker C [facility] Start: 09-01-2022 Tobacco use and exposure Smokeless tobacco non-user [facility] Start: 09-01-2022 Alcoholic beverage intake Lifetime non-drinker (finding) [facility] Start: 09-01-2022 History of Social function [facility] Start: 09-01-2022 Tobacco use panel [facility] Start: 1950 Sex assigned at Not on file C [facility] Start: 12-02-2024 Sex Male (finding) [facility] Medical Equipment Procedure Code Equipment Code Equipment Origin al Text Equipment Identifier Dates 132 NECK ANGLE H IP STEM FDA Start: 08-01-2022 CERAMIC V40 FEMO RAL HEAD FDA Start: 08-01-2022 CLUSTERHOLE ACETABULAR SHELL FDA Start: 08-01-2022 LINER CEMENTLESS FDA Start: 08-01-2022 X3 INSERT FOR ADM/MDM FDA Sta rt: 08-01-2022 132 NECK ANGLE H IP STEM FDA Start: 08-01-2022 CERAMIC V40 FEMO RAL HEAD FDA Start: 08-01-2022 CLUSTERHOLE ACETABULAR SHELL FDA Start: 08-01-2022 LINER CEMENTLESS FDA Start: 08-01-2022 X3 INSERT FOR ADM/MDM FDA Sta rt: 08-01-2022 132 NECK ANGLE H IP STEM FDA Start: 08-01-2022 CERAMIC V40 FEMO RAL HEAD FDA Start: 08-01-2022 CLUSTERHOLE ACETABULAR SHELL FDA Start: 08-01-2022 LINER CEMENTLESS FDA Start: 08-01-2022 X3 INSERT FOR ADM/MDM FDA Sta rt: 08-01-2022 132 NECK ANGLE H IP STEM FDA Start: 08-01-2022 CERAMIC V40 FEMO RAL HEAD FDA Start: 08-01-2022 CLUSTERHOLE ACETABULAR SHELL FDA Start: 08-01-2022 LINER CEMENTLESS FDA Start: 08-01-2022 X3 INSERT FOR ADM/MDM FDA Sta rt: 08-01-2022 132 NECK ANGLE H IP STEM FDA Start: 08-01-2022 CERAMIC V40 FEMO RAL HEAD FDA Start: 08-01-2022 CLUSTERHOLE ACETABULAR SHELL FDA Start: 08-01-2022 LINER CEMENTLESS FDA Start: 08-01-2022 X3 INSERT FOR ADM/MDM FDA Sta rt: 08-01-2022 132 NECK ANGLE H IP STEM FDA Start: 08-01-2022 CERAMIC V40 FEMO RAL HEAD FDA Start: 08-01-2022 CLUSTERHOLE ACETABULAR SHELL FDA Start: 08-01-2022 LINER CEMENTLESS FDA Start: 08-01-2022 X3 INSERT FOR ADM/MDM FDA Sta rt: 08-01-2022 132 NECK ANGLE H IP STEM FDA Start: 08-01-2022 CERAMIC V40 FEMO RAL HEAD FDA Start: 08-01-2022 CLUSTERHOLE ACETABULAR SHELL FDA Start: 08-01-2022 LINER CEMENTLESS FDA Start: 08-01-2022 X3 INSERT FOR ADM/MDM FDA Sta rt: 08-01-2022 132 NECK ANGLE H IP STEM FDA Start: 08-01-2022 CERAMIC V40 FEMO RAL HEAD FDA Start: 08-01-2022 CLUSTERHOLE ACETABULAR SHELL FDA Start: 08-01-2022 LINER CEMENTLESS FDA Start: 08-01-2022 X3 INSERT FOR ADM/MDM FDA Sta rt: 08-01-2022 132 NECK ANGLE H IP STEM FDA Start: 08-01-2022 CERAMIC V40 FEMO RAL HEAD FDA Start: 08-01-2022 CLUSTERHOLE ACETABULAR SHELL FDA Start: 08-01-2022 LINER CEMENTLESS FDA Start: 08-01-2022 X3 INSERT FOR ADM/MDM FDA Sta rt: 08-01-2022 132 NECK ANGLE H IP STEM FDA Start: 08-01-2022 CERAMIC V40 FEMO RAL HEAD FDA Start: 08-01-2022 CLUSTERHOLE ACETABULAR SHELL FDA Start: 08-01-2022 LINER CEMENTLESS FDA Start: 08-01-2022 X3 INSERT FOR ADM/MDM FDA Sta rt: 08-01-2022 Goals Date Patient Goal Desired Activity /State Functional Status Date Assessment Result Facility 08-02-2022 Functional status Chair [facility] Work Phone: Mental Status Date Assessment Result Facility 08-02-2022 Cognitive function Level Of Cons ciousness Awake;Alert;Appropriate;Follow s Commands [facility] Work Phone: 08-02-2022 Cognitive function Voice/Name [facility] Work Phone: Clinical Notes 09-01-2022 to 09-10-2024 Note Date & Type Note Facility 09-10-2024 Evaluation note Diagnosis Onset Date Resolution Fall inactive September 10, 2024 10:50am Hand laceration inactive August 282024 10:50am Hand laceration inactive August 292024 10:57am [facility] Work Phone: 1(408) 130-564104-30-2024 Progress note Author Nick Forbes [facility] December 26, 2023 10:12am Note Date/Time December 26, 2023 10: 12am [facility] [address] [place] [id number] Progress Note - Wound Care 12/26/23 1011 MR#: [id number] Acct: [id number] Name: ABDOUL ALICEA Brigida Rep #:[id number] : 1950 73 From: Nick Forbes DPM PCP: Dr. Katlyn Lantigua MD Status:[facility] Location: History of Present Illness Date of Service: 12/26/23 History of Wound: 72-year-old male has had a wound since May 2023. Patient was chopping firewood and had a few piece of wood fall onto his left leg. Patient suffered a laceration was seen in the emergency department at that time which they flushed and cleaned the wound and closed it primarily after updating his tetanus status. Patient subsequently had his sutures removed and developed a full- thickness ulceration to his left medial leg. Patient had been performingself-care with daily dressing changes and noticed no healing, therefore, he presents today. Patient has no obvious medical problems and is not currently onany long-term medications. Patient does have bilateral lower extremity swelling. 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 Patient notes some pain to the wound site. Patient has no other complaints. Objective Data Objective Data Vital Signs: Vital Signs Temp Pulse Resp BP O2 Del Method 97.7 F L 72 18 119/68 Room Air 12/26/23 09:18 12/26/23 09:18 12/26/23 09:18 12/26/23 09:18 12/19/23 09:08 Oxygen Delivery Method Room Air Weight: 106.141 kg Body Mass Index (BMI) 31.7 Physical Exam Narrative Patient has palpable 2 out of 4 DP PT pulses to right lower extremity. Left lower extremity PT is palpable 2 out of 4. Dorsalis pedis is biphasic On Doppler examination. Patient has +2 pitting edema to bilateral lower extremity perimalleolar region with positive hemosiderin deposits and superficial varicosities. Patient has intact light touch protective sensation as well as deep tendon reflexes Achilles. No obvious clonus. Full-thickness wound noted to the medial left ankle along the course of the great saphenous vein with a stable granular base. Wound decreased in size. No overt signs of infection such as erythema malodor or purulent drainage warmth. There is some pain to the wound and periwound area. Musculoskeletal muscular strength full to bilateral lower extremity compartments. No wounds forming deformities noted. No sign DVT. Const alert and oriented x3 Debridement Note Debridement Note Post-Debridement Measurements and Additional Note: Post-Debridement Measurements/Treatment - Nurse 1 - General Ulcer Assessment Start: 11/28/23 09:28 Freq: Status: Active Protocol: .LOWEXT Activity Type Activity Date Activity User E-sign Co-sign Detail Recorded Client Recorded Date Recorded By Document 11/28/23 09:28 RB Desktop 11/28/23 09:30 RB Document 12/05/23 08:57 DL Desktop 12/05/23 09:06 DL Document 12/12/23 09:11 KW Desktop 12/12/23 09:13 KW Document 12/19/23 09:08 KW Desktop 12/19/23 09:20 KW Document 12/26/23 09:18 DL Desktop 12/26/23 09:24 DL 11/28/23 12/05/23 12/12/23 09:28 08:57 09:11 - Today's Visit Information Type of service Follow-up Visit Follow-up Visit Follow-up Visit (Physician/DATABASE REPORT WRITER (Physician/DATABASE REPORT WRITER (Physician/DATABASE REPORT WRITER ) ) ) Arrival Mode Ambulatory Ambulatory Ambulatory Transfer Assistance None None None Patient Identification Verified (Name & Yes Yes Yes ) Patient Requires Transmission-Based No No No Precautions Height and Weight Body Mass Index (BMI) 31.7 31.7 31.7 BMI Classification Obese Obese Obese Vital Signs Temperature (97.8 F-99.1 F) 97.1 F L 97.9 F 97.7 F L Temperature Source Temporal Temporal Temporal Pulse Rate (60-100) 67 72 Pulse Location Monitor Monitor Respiratory Rate (12-18) 18 20 H 20 H Respiratory rate source Observation Observation Oxygen Delivery Method Blood Pressure (90/60-120/80) 154/67 H 169/78 H Blood Pressure Mean (mm Hg) 96 108 Source Monitor Monitor Position Semi-Fowlers Blood Pressure Location Left Arm History Since Last Visit- (Skip if this is Patient's initial visit) Have you changed medications since your No No No last visit? Any new allergies or adverse reactions No No No Had a fall/change in ADL's that may No No No increase risk of falls Signs or symptoms of abuse and/or No No No neglect since last visit Have you been in the hospital since your No No No last visit? Has dressing in place as prescribed Yes Yes No Has compression in place as prescribed Yes Yes Yes Has offloadiing in place as prescribed No N/A N/A Experienced any changes in pain level or No No No management Left Footwear Right Footwear Pain Scale: 0-10 Numeric Is Patient Pain Free? Yes Yes Yes 12/19/23 12/26/23 09:08 09:18 WC - Today's Visit Information Type of service Follow-up Visit Follow-up Visit (Physician/DATABASE REPORT WRITER (Physician/DATABASE REPORT WRITER ) ) Arrival Mode Ambulatory Ambulatory Transfer Assistance None Patient Identification Verified (Name & Yes Yes ) Patient Requires Transmission-Based No Precautions Height and Weight Body Mass Index (BMI) 31.7 31.7 BMI Classification Obese Obese Vital Signs Temperature (97.8 F-99.1 F) 97.2 F L 97.7 F L Temperature Source Temporal Temporal Pulse Rate (60-100) 70 72 Pulse Location Apical Monitor Respiratory Rate (12-18) 18 18 Respiratory rate source Observation Observation Oxygen Delivery Method Room Air Blood Pressure (90/60-120/80) 154/63 H 119/68 Blood Pressure Mean (mm Hg) 93 85 Source Monitor Monitor Position Semi-Fowlers Blood Pressure Location Left Arm History Since Last Visit- (Skip if this is Patient's initial visit) Have you changed medications since your No No last visit? Any new allergies or adverse reactions No No Had a fall/change in ADL's that may No No increase risk of falls Signs or symptoms of abuse and/or No No neglect since last visit Have you been in the hospital since your No No last visit? Has dressing in place as prescribed Yes Yes Has compression in place as prescribed Yes Yes Has offloadiing in place as prescribed N/A N/A Experienced any changes in pain level or No No management Left Footwear Regular Shoe Right Footwear Regular Shoe Pain Scale: 0-10 Numeric Is Patient Pain Free? Yes Yes WC - Nurse 1 - General Ulcer Measurement Start: 11/28/23 09:28 Freq: Status: Active Protocol: Activity Type Activity Date Activity User E-sign Co-sign Detail Recorded Client Recorded Date Recorded By Document 11/28/23 09:28 RB Desktop 11/28/23 09:30 RB Document 12/05/23 08:57 DL Desktop 12/05/23 09:06 DL Document 12/12/23 09:11 KW Desktop 12/12/23 09:13 KW Document 12/19/23 09:08 KW Desktop 12/19/23 09:20 KW Document 12/26/23 09:18 DL Desktop 12/26/23 09:24 DL 11/28/23 12/05/23 12/12/23 09:28 08:57 09:11 Wound Center Nurse 1 1. LLE -Combined with other wound No -Current Size (cm) - Length 4 4 3.9 -Current Size (cm) - Width 2.2 2 2.4 -Current Size (cm) - Depth 0.1 0.1 0.1 -Total Square Cm 8.8 8 9.36 -Photo Taken Yes Yes -Tunneling No -Undermining/Tunneling No -Circular Undermining No -Exudate Amt Large Medium Medium -Exudate Type Serosanguineous Serosanguineous Serosanguineous -Wound Margin Distinct, Distinct, Distinct, Outline Outline Outline Attached Attached Attached -Granulation Amt Medium (34-66%) Medium (34-66%) Medium (34-66%) -Granulation Quality Kersey Red Red -Slough/Fibrin Yes -Necrosis Amt Medium (34-66%) Medium (34-66%) Medium (34-66%) -Necrotic Tissue Type Adherent Slough Adherent Slough Adherent Slough -Structure Exposed N/A N/A N/A -Texture (Astrid-wound Skin Appearance) Assessed Scarring Scarring -Moisture (Astrid-wound Skin Appearance) Assessed No Abnormality No Abnormality -Color (Astrid-wound Skin Appearance) Hemosiderin No Abnormality No Abnormality Staining -Temperature (Astrid-wound Skin No Abnormality No Abnormality No Abnormality Appearance) (Pt Warm) (Pt Warm) (Pt Warm) -Tenderness on Palpation (Astrid-wound No No Skin Appearance) -Ulcer Cleansing Wound Cleanser Soap and Water Soap and Water -Foul Odor after Cleansing No No No -Anesthetic Used 5% Lidocaine 5% Lidocaine 5% Lidocaine Gel Gel Gel Lower Limb Edema Present Yes Left Calf (cm) 41 39.5 40.2 Left Ankle (cm) 23.7 23.2 22.5 12/19/23 12/26/23 09:08 09:18 Wound Center Nurse 1 1. LLE -Combined with other wound -Current Size (cm) - Length 4.6 4 -Current Size (cm) - Width 2.4 2.3 -Current Size (cm) - Depth 0.1 0.2 -Total Square Cm 11.04 9.2 -Photo Taken -Tunneling -Undermining/Tunneling -Circular Undermining -Exudate Amt Large Medium -Exudate Type Serosanguineous Serosanguineous -Wound Margin Distinct, Distinct, Outline Outline Attached Attached -Granulation Amt Large (67-100%) Medium (34-66%) -Granulation Quality Red Kersey -Slough/Fibrin -Necrosis Amt Medium (34-66%) -Necrotic Tissue Type Adherent Slough -Structure Exposed N/A -Texture (Astrid-wound Skin Appearance) Assessed Scarring -Moisture (Astrid-wound Skin Appearance) Assessed No Abnormality -Color (Astrid-wound Skin Appearance) Assessed No Abnormality -Temperature (Astrid-wound Skin No Abnormality No Abnormality Appearance) (Pt Warm) (Pt Warm) -Tenderness on Palpation (Astrid-wound No Skin Appearance) -Ulcer Cleansing Soap and Water Soap and Water -Foul Odor after Cleansing No No -Anesthetic Used 5% Lidocaine 5% Lidocaine Gel Gel Lower Limb Edema Present Left Calf (cm) 40.4 38.2 Left Ankle (cm) 22.4 221.8 WC - Nurse 2 - General Ulcer CM Notes Start: 11/28/23 09:28 Freq: Status: Active Protocol: Activity Type Activity Date Activity User E-sign Co-sign Detail Recorded Client Recorded Date Recorded By Document 11/28/23 09:37 Laptop 11/28/23 09:44 Document 12/05/23 09:54 Laptop 12/05/23 10:01 Document 12/12/23 09:21 JF Laptop 12/12/23 09:29 JF Edit Result 12/12/23 09:21 JF (1) [id number] 12/18/23 09:01 Document 12/19/23 09:49 JF Laptop 12/19/23 09:55 Document 12/26/23 09:38 JF Laptop 12/26/23 09:43 JF (1) 1. LLE - Apply Skin Sub - 1st 25 sq cm - Legs => 1 - Epifix Mesh (per sq cm) => 11 11/28/23 12/05/23 12/12/23 09:37 09:54 09:21 Wound Center Nurse 2 1. LLE -Time 09:37 09:54 -Correct Patient Yes Yes Yes -Correct Side, Site, Position Yes Yes Yes -Correct Procedure Yes Yes Yes -Procedure Performed Yes Yes Yes -Type of Procedure Debridement Debridement Debridement -Clinical Debridement Subcutaneous Subcutaneous Subcutaneous -Tissue Removed Subcutaneous Subcutaneous Subcutaneous -Post Debridement (cm) - Length 4.8 4.2 4.0 -Post Debridement (cm) - Width 2.3 2.3 2.5 -Post Debridement (cm) - Depth 0.1 0.1 0.1 -Total Square (Post) (cm) 11.04 9.66 10.00 -Area of Debridement (cm) - Length 4.8 4.2 4.0 -Area of Debridement (cm) - Width 2.3 2.3 2.5 -Total Square (Area) (cm) 11.04 9.66 10.00 -Tunneling No No No -Undermining/Tunneling No No No -Circular Undermining No No No -Wound/Ulcer Outcome Not Healed Not Healed Not Healed -Ulcer Cleansing Rinsed/ Rinsed/ Rinsed/ Irrigated with Irrigated with Irrigated with Saline Saline Saline -Foul Odor after Cleansing No No No -Bioengineered Tissue Yes Yes Yes -Type of Bioengineered Tissue Epifix Mesh Epifix Mesh Epifix Mesh -Expiration Date 04/28/28 05/28/28 06/28/28 -Product Lot Number [id number] -Percent Used 100 100 100 -Lot number of Saline Used [id number] -Bleeding Controlled with Pressure Pressure Pressure -Treatment Response Procedure Procedure Procedure Tolerated Well Tolerated Well Tolerated Well -Offloading No No No -Debridement - Subq, 1st 20sq cm No No No -Apply Skin Sub - 1st 25 sq cm - Legs 1 1 1 -Epifix Mesh (per sq cm) 11 11 11 Pain Scale: 0-10 Numeric Is Patient Pain Free? Yes Yes Yes 12/19/23 12/26/23 09:49 09:38 Wound Center Nurse 2 1. LLE -Time 09:53 09:42 -Correct Patient Yes Yes -Correct Side, Site, Position Yes Yes -Correct Procedure Yes Yes -Procedure Performed Yes Yes -Type of Procedure Debridement Debridement -Clinical Debridement Subcutaneous Subcutaneous -Tissue Removed Subcutaneous Subcutaneous -Post Debridement (cm) - Length 4.5 4.4 -Post Debridement (cm) - Width 2.5 2.3 -Post Debridement (cm) - Depth 0.1 0.1 -Total Square (Post) (cm) 11.25 10.12 -Area of Debridement (cm) - Length 4.5 4.4 -Area of Debridement (cm) - Width 2.5 2.3 -Total Square (Area) (cm) 11.25 10.12 -Tunneling No No -Undermining/Tunneling No No -Circular Undermining No No -Wound/Ulcer Outcome Not Healed Not Healed -Ulcer Cleansing Rinsed/ Rinsed/ Irrigated with Irrigated with Saline Saline -Foul Odor after Cleansing No No -Bioengineered Tissue Yes Yes -Type of Bioengineered Tissue Epifix Mesh Epifix Mesh -Expiration Date 06/28/28 06/28/28 -Product Lot Number [id number] -Percent Used 100 100 -Lot number of Saline Used [id number] -Bleeding Controlled with Pressure Pressure -Treatment Response Procedure Procedure Tolerated Well Tolerated Well -Offloading No No -Debridement - Subq, 1st 20sq cm No No -Apply Skin Sub - 1st 25 sq cm - Legs 1 1 -Epifix Mesh (per sq cm) 11 11 Pain Scale: 0-10 Numeric Is Patient Pain Free? Yes Yes - Nurse 3 - General Ulcer D/C NN Start: 11/28/23 09:28 Freq: Status: Active Protocol: Activity Type Activity Date Activity User E-sign Co-sign Detail Recorded Client Recorded Date Recorded By Document 11/28/23 09:56 KW Desktop 11/28/23 09:56 KW Document 12/05/23 10:13 DL Desktop 12/05/23 10:14 DL Document 12/12/23 10:31 DL [id number] 12/12/23 10:32 DL Document 12/19/23 10:02 KW Desktop 12/19/23 10:08 KW Document 12/26/23 09:54 KW Desktop 12/26/23 09:54 KW 11/28/23 12/05/23 12/12/23 09:56 10:13 10:31 Wound Care Center Nurse 3 1. LLE -Ulcer Cleansing Not Cleansed -Foul Odor after Cleansing No No -Primary Dressing Applied Mepilex Border Mepilex Border Mepilex Border -Other Dressing epifix/hydrogel Epimesh/ hydrogel -Primary Dressing Covered/Secured with Dry Gauze Dry Gauze -Mepilex Border 1 1 1 -Optilok 6.5x10 Left -Multi-Layered Wrap Application -Tubular Bandage Double Layer Double Layer Single Layer -Size of Tubigrip Used Size E Size E Size E -Size E ($) 2 1 1 Treatment Response Procedure Procedure Tolerated Well Tolerated Well Pain Scale: 0-10 Numeric Is Patient Pain Free? Yes Yes Yes - Visit Discharge Discharge Condition Stable Stable Stable Ambulatory Status Ambulatory Ambulatory Ambulatory Transportation Private Auto Private Auto Private Auto Medication Reconcilliation completed & No provided to patient/care provider Clinical Summary of Care Provided Yes 12/19/23 12/26/23 10:02 09:54 Wound Care Center Nurse 3 1. LLE -Ulcer Cleansing -Foul Odor after Cleansing -Primary Dressing Applied Optilok 6.5x10 Mepilex Border -Other Dressing -Primary Dressing Covered/Secured with Dry Gauze & Roll Gauze, Secured with Tape -Mepilex Border 1 -Optilok 6.5x10 1 Left -Multi-Layered Wrap Application Multi-Layer Comp - Left ($) -Tubular Bandage Double Layer -Size of Tubigrip Used Size E -Size E ($) 2 Treatment Response Pain Scale: 0-10 Numeric Is Patient Pain Free? Yes Yes WC - Visit Discharge Discharge Condition Stable Stable Ambulatory Status Ambulatory Ambulatory Transportation Private Auto Private Auto Medication Reconcilliation completed & No No provided to patient/care provider Clinical Summary of Care Provided Yes Yes Assessment/Plan Assessment/Plan (1) Venous insufficiency (chronic) (peripheral): CODE(S): I87.2 - Venous insufficiency (chronic) (peripheral) PLAN: Exam performed Neurovascular status intact, will consider arterial studies if there are any delays in healing Wound decreased in size. No infection. Today left lower extremity wound was excisionally debrided down to including level of subcutaneous tissue of all nonviable tissue using 3 mm dermal curette. Topical anesthesia was used. Pre and postdebridement measurements documented nursing notes. Patient tolerated procedure well. Topical anesthesia used. Hemostasis obtained with light compression. Wound was flushed with copious amounts normal sterile saline, swab culture taken No additional antibiotics needed at this time Today EpiFix graft was applied 4 x 4.5 cm meshed graft, 11 billing units to its entirety to the left leg wound. Entire graft used, no waste. This was stabilized with overlying Adaptic, 4 x 4's, DSD and 3M compression dressing. Patient will follow-up for nursing dressing change and next week for additional care. Significant wound improvement noted today. Patient to follow-up in 1 week (2) Non-pressure chronic ulcer of left ankle with fat layer exposed: CODE(S): L97.322 - Non-pressure chronic ulcer of left ankle with fat layerexposed 12/26/23 1012 <Electronically signed by Nick Forbes DPM> Cosigner Signature (if applicable): CC: ~ Signed [facility] Work Phone: 1(523) 736-150504-23-2024 Progress note Author Nick Forbes [facility] December 19, 2023 10:29am Note Date/Time December 19, 2023 10: 29am [facility] [address] [place] [address] Progress Note - Wound Care 12/19/23 1028 MR#: [id number] Acct: [id number] Name: ABDOUL ALICEA Rep #:[id number] : 1950 73 From: Nick Forbes DPM PCP: Dr. Katlyn Lantigua MD Status:REG RCR Location: History of Present Illness Date of Service: 12/19/23 History of Wound: 72-year-old male has had a wound since May 2023. Patient was chopping firewood and had a few piece of wood fall onto his left leg. Patient suffered a laceration was seen in the emergency department at that time which they flushed and cleaned the wound and closed it primarily after updating his tetanus status. Patient subsequently had his sutures removed and developed a full- thickness ulceration to his left medial leg. Patient had been performingsel-care with daily dressing changes and noticed no healing, therefore, he presents today. Patient has no obvious medical problems and is not currently onany long-term medications. Patient does have bilateral lower extremity swelling. 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 Patient notes some pain to the wound site. Patient has no other complaints. Objective Data Objective Data Vital Signs: Vital Signs Temp Pulse Resp BP O2 Del Method 97.2 F L 70 18 154/63 H Room Air 12/19/23 09:08 12/19/23 09:08 12/19/23 09:08 12/19/23 09:08 12/19/23 09:08 Oxygen Delivery Method Room Air Weight: 106.141 kg Body Mass Index (BMI) 31.7 Physical Exam Narrative Patient has palpable 2 out of 4 DP PT pulses to right lower extremity. Left lower extremity PT is palpable 2 out of 4. Dorsalis pedis is biphasic On Doppler examination. Patient has +2 pitting edema to bilateral lower extremity perimalleolar region with positive hemosiderin deposits and superficial varicosities. Patient has intact light touch protective sensation as well as deep tendon reflexes Achilles. No obvious clonus. Full-thickness wound noted to the medial left ankle along the course of the great saphenous vein with a stable granular base. Wound decreased in size. No overt signs of infection such as erythema malodor or purulent drainage warmth. There is some pain to the wound and periwound area. Musculoskeletal muscular strength full to bilateral lower extremity compartments. No wounds forming deformities noted. No sign DVT. Const alert and oriented x3 Debridement Note Debridement Note Post-Debridement Measurements and Additional Note: Post-Debridement Measurements/Treatment - Nurse 1 - General Ulcer Assessment Start: 11/28/23 09:28 Freq: Status: Active Protocol: MIKAELA Activity Type Activity Date Activity User E-sign Co-sign Detail Recorded Client Recorded Date Recorded By Document 11/28/23 09:28 RB Desktop 11/28/23 09:30 RB Document 12/05/23 08:57 DL Desktop 12/05/23 09:06 DL Document 12/12/23 09:11 KW Desktop 12/12/23 09:13 KW Document 12/19/23 09:08 KW Desktop 12/19/23 09:20 KW 11/28/23 12/05/23 12/12/23 09:28 08:57 09:11 - Today's Visit Information Type of service Follow-up Visit Follow-up Visit Follow-up Visit (Physician/DATABASE REPORT WRITER (Physician/DATABASE REPORT WRITER (Physician/DATABASE REPORT WRITER ) ) ) Arrival Mode Ambulatory Ambulatory Ambulatory Transfer Assistance None None None Patient Identification Verified (Name & Yes Yes Yes ) Patient Requires Transmission-Based No No No Precautions Height and Weight Body Mass Index (BMI) 31.7 31.7 31.7 BMI Classification Obese Obese Obese Vital Signs Temperature (97.8 F-99.1 F) 97.1 F L 97.9 F 97.7 F L Temperature Source Temporal Temporal Temporal Pulse Rate (60-100) 67 72 Pulse Location Monitor Monitor Respiratory Rate (12-18) 18 20 H 20 H Respiratory rate source Observation Observation Oxygen Delivery Method Blood Pressure (90/60-120/80) 154/67 H 169/78 H Blood Pressure Mean (mm Hg) 96 108 Source Monitor Monitor Position Semi-Fowlers Blood Pressure Location Left Arm History Since Last Visit- (Skip if this is Patient's initial visit) Have you changed medications since your No No No last visit? Any new allergies or adverse reactions No No No Had a fall/change in ADL's that may No No No increase risk of falls Signs or symptoms of abuse and/or No No No neglect since last visit Have you been in the hospital since your No No No last visit? Has dressing in place as prescribed Yes Yes No Has compression in place as prescribed Yes Yes Yes Has offloadiing in place as prescribed No N/A N/A Experienced any changes in pain level or No No No management Left Footwear Right Footwear Pain Scale: 0-10 Numeric Is Patient Pain Free? Yes Yes Yes 12/19/23 09:08 WC - Today's Visit Information Type of service Follow-up Visit (Physician/DATABASE REPORT WRITER ) Arrival Mode Ambulatory Transfer Assistance Patient Identification Verified (Name & Yes ) Patient Requires Transmission-Based Precautions Height and Weight Body Mass Index (BMI) 31.7 BMI Classification Obese Vital Signs Temperature (97.8 F-99.1 F) 97.2 F L Temperature Source Temporal Pulse Rate (60-100) 70 Pulse Location Apical Respiratory Rate (12-18) 18 Respiratory rate source Observation Oxygen Delivery Method Room Air Blood Pressure (90/60-120/80) 154/63 H Blood Pressure Mean (mm Hg) 93 Source Monitor Position Semi-Fowlers Blood Pressure Location Left Arm History Since Last Visit- (Skip if this is Patient's initial visit) Have you changed medications since your No last visit? Any new allergies or adverse reactions No Had a fall/change in ADL's that may No increase risk of falls Signs or symptoms of abuse and/or No neglect since last visit Have you been in the hospital since your No last visit? Has dressing in place as prescribed Yes Has compression in place as prescribed Yes Has offloadiing in place as prescribed N/A Experienced any changes in pain level or No management Left Footwear Regular Shoe Right Footwear Regular Shoe Pain Scale: 0-10 Numeric Is Patient Pain Free? Yes - Nurse 1 - General Ulcer Measurement Start: 11/28/23 09:28 Freq: Status: Active Protocol: Activity Type Activity Date Activity User E-sign Co-sign Detail Recorded Client Recorded Date Recorded By Document 11/28/23 09:28 RB Desktop 11/28/23 09:30 RB Document 12/05/23 08:57 DL Desktop 12/05/23 09:06 DL Document 12/12/23 09:11 KW Desktop 12/12/23 09:13 KW Document 12/19/23 09:08 KW Desktop 12/19/23 09:20 KW 11/28/23 12/05/23 12/12/23 09:28 08:57 09:11 Wound Center Nurse 1 1. LLE -Combined with other wound No -Current Size (cm) - Length 4 4 3.9 -Current Size (cm) - Width 2.2 2 2.4 -Current Size (cm) - Depth 0.1 0.1 0.1 -Total Square Cm 8.8 8 9.36 -Photo Taken Yes Yes -Tunneling No -Undermining/Tunneling No -Circular Undermining No -Exudate Amt Large Medium Medium -Exudate Type Serosanguineous Serosanguineous Serosanguineous -Wound Margin Distinct, Distinct, Distinct, Outline Outline Outline Attached Attached Attached -Granulation Amt Medium (34-66%) Medium (34-66%) Medium (34-66%) -Granulation Quality Kersey Red Red -Slough/Fibrin Yes -Necrosis Amt Medium (34-66%) Medium (34-66%) Medium (34-66%) -Necrotic Tissue Type Adherent Slough Adherent Slough Adherent Slough -Structure Exposed N/A N/A N/A -Texture (Astrid-wound Skin Appearance) Assessed Scarring Scarring -Moisture (Astrid-wound Skin Appearance) Assessed No Abnormality No Abnormality -Color (Astrid-wound Skin Appearance) Hemosiderin No Abnormality No Abnormality Staining -Temperature (Astrid-wound Skin No Abnormality No Abnormality No Abnormality Appearance) (Pt Warm) (Pt Warm) (Pt Warm) -Tenderness on Palpation (Astrid-wound No No Skin Appearance) -Ulcer Cleansing Wound Cleanser Soap and Water Soap and Water -Foul Odor after Cleansing No No No -Anesthetic Used 5% Lidocaine 5% Lidocaine 5% Lidocaine Gel Gel Gel Lower Limb Edema Present Yes Left Calf (cm) 41 39.5 40.2 Left Ankle (cm) 23.7 23.2 22.5 12/19/23 09:08 Wound Center Nurse 1 1. LLE -Combined with other wound -Current Size (cm) - Length 4.6 -Current Size (cm) - Width 2.4 -Current Size (cm) - Depth 0.1 -Total Square Cm 11.04 -Photo Taken -Tunneling -Undermining/Tunneling -Circular Undermining -Exudate Amt Large -Exudate Type Serosanguineous -Wound Margin Distinct, Outline Attached -Granulation Amt Large (67-100%) -Granulation Quality Red -Slough/Fibrin -Necrosis Amt -Necrotic Tissue Type -Structure Exposed -Texture (Astrid-wound Skin Appearance) Assessed -Moisture (Astrid-wound Skin Appearance) Assessed -Color (Astrid-wound Skin Appearance) Assessed -Temperature (Astrid-wound Skin No Abnormality Appearance) (Pt Warm) -Tenderness on Palpation (Astrid-wound No Skin Appearance) -Ulcer Cleansing Soap and Water -Foul Odor after Cleansing No -Anesthetic Used 5% Lidocaine Gel Lower Limb Edema Present Left Calf (cm) 40.4 Left Ankle (cm) 22.4 WC - Nurse 2 - General Ulcer CM Notes Start: 11/28/23 09:28 Freq: Status: Active Protocol: Activity Type Activity Date Activity User E-sign Co-sign Detail Recorded Client Recorded Date Recorded By Document 11/28/23 09:37 Laptop 11/28/23 09:44 Document 12/05/23 09:54 Laptop 12/05/23 10:01 Document 12/12/23 09:21 Laptop 12/12/23 09:29 Edit Result 12/12/23 09:21 JF (1) [id number] 12/18/23 09:01 Document 12/19/23 09:49 Laptop 12/19/23 09:55 JF (1) 1. LLE - Apply Skin Sub - 1st 25 sq cm - Legs => 1 - Epifix Mesh (per sq cm) => 11 11/28/23 12/05/23 12/12/23 09:37 09:54 09:21 Wound Center Nurse 2 1. LLE -Time 09:37 09:54 -Correct Patient Yes Yes Yes -Correct Side, Site, Position Yes Yes Yes -Correct Procedure Yes Yes Yes -Procedure Performed Yes Yes Yes -Type of Procedure Debridement Debridement Debridement -Clinical Debridement Subcutaneous Subcutaneous Subcutaneous -Tissue Removed Subcutaneous Subcutaneous Subcutaneous -Post Debridement (cm) - Length 4.8 4.2 4.0 -Post Debridement (cm) - Width 2.3 2.3 2.5 -Post Debridement (cm) - Depth 0.1 0.1 0.1 -Total Square (Post) (cm) 11.04 9.66 10.00 -Area of Debridement (cm) - Length 4.8 4.2 4.0 -Area of Debridement (cm) - Width 2.3 2.3 2.5 -Total Square (Area) (cm) 11.04 9.66 10.00 -Tunneling No No No -Undermining/Tunneling No No No -Circular Undermining No No No -Wound/Ulcer Outcome Not Healed Not Healed Not Healed -Ulcer Cleansing Rinsed/ Rinsed/ Rinsed/ Irrigated with Irrigated with Irrigated with Saline Saline Saline -Foul Odor after Cleansing No No No -Bioengineered Tissue Yes Yes Yes -Type of Bioengineered Tissue Epifix Mesh Epifix Mesh Epifix Mesh -Expiration Date 04/28/28 05/28/28 06/28/28 -Product Lot Number [id number] -Percent Used 100 100 100 -Lot number of Saline Used [id number] -Bleeding Controlled with Pressure Pressure Pressure -Treatment Response Procedure Procedure Procedure Tolerated Well Tolerated Well Tolerated Well -Offloading No No No -Debridement - Subq, 1st 20sq cm No No No -Apply Skin Sub - 1st 25 sq cm - Legs 1 1 1 -Epifix Mesh (per sq cm) 11 11 11 Pain Scale: 0-10 Numeric Is Patient Pain Free? Yes Yes Yes 12/19/23 09:49 Wound Center Nurse 2 1. LLE -Time 09:53 -Correct Patient Yes -Correct Side, Site, Position Yes -Correct Procedure Yes -Procedure Performed Yes -Type of Procedure Debridement -Clinical Debridement Subcutaneous -Tissue Removed Subcutaneous -Post Debridement (cm) - Length 4.5 -Post Debridement (cm) - Width 2.5 -Post Debridement (cm) - Depth 0.1 -Total Square (Post) (cm) 11.25 -Area of Debridement (cm) - Length 4.5 -Area of Debridement (cm) - Width 2.5 -Total Square (Area) (cm) 11.25 -Tunneling No -Undermining/Tunneling No -Circular Undermining No -Wound/Ulcer Outcome Not Healed -Ulcer Cleansing Rinsed/ Irrigated with Saline -Foul Odor after Cleansing No -Bioengineered Tissue Yes -Type of Bioengineered Tissue Epifix Mesh -Expiration Date 06/28/28 -Product Lot Number [id number] -Percent Used 100 -Lot number of Saline Used [id number] -Bleeding Controlled with Pressure -Treatment Response Procedure Tolerated Well -Offloading No -Debridement - Subq, 1st 20sq cm No -Apply Skin Sub - 1st 25 sq cm - Legs 1 -Epifix Mesh (per sq cm) 11 Pain Scale: 0-10 Numeric Is Patient Pain Free? Yes - Nurse 3 - General Ulcer D/C NN Start: 11/28/23 09:28 Freq: Status: Active Protocol: Activity Type Activity Date Activity User E-sign Co-sign Detail Recorded Client Recorded Date Recorded By Document 11/28/23 09:56 KW Desktop 11/28/23 09:56 KW Document 12/05/23 10:13 DL Desktop 12/05/23 10:14 DL Document 12/12/23 10:31 DL [id number] 12/12/23 10:32 DL Document 12/19/23 10:02 KW Desktop 12/19/23 10:08 KW 11/28/23 12/05/23 12/12/23 09:56 10:13 10:31 Wound Care Center Nurse 3 1. LLE -Ulcer Cleansing Not Cleansed -Foul Odor after Cleansing No No -Primary Dressing Applied Mepilex Border Mepilex Border Mepilex Border -Other Dressing epifix/hydrogel Epimesh/ hydrogel -Primary Dressing Covered/Secured with Dry Gauze Dry Gauze -Mepilex Border 1 1 1 -Optilok 6.5x10 Left -Multi-Layered Wrap Application -Tubular Bandage Double Layer Double Layer Single Layer -Size of Tubigrip Used Size E Size E Size E -Size E ($) 2 1 1 Treatment Response Procedure Procedure Tolerated Well Tolerated Well Pain Scale: 0-10 Numeric Is Patient Pain Free? Yes Yes Yes - Visit Discharge Discharge Condition Stable Stable Stable Ambulatory Status Ambulatory Ambulatory Ambulatory Transportation Private Auto Private Auto Private Auto Medication Reconcilliation completed & No provided to patient/care provider Clinical Summary of Care Provided Yes 12/19/23 10:02 Wound Care Center Nurse 3 1. LLE -Ulcer Cleansing -Foul Odor after Cleansing -Primary Dressing Applied Optilok 6.5x10 -Other Dressing -Primary Dressing Covered/Secured with Dry Gauze & Roll Gauze, Secured with Tape -Mepilex Border -Optilok 6.5x10 1 Left -Multi-Layered Wrap Application Multi-Layer Comp - Left ($) -Tubular Bandage -Size of Tubigrip Used -Size E ($) Treatment Response Pain Scale: 0-10 Numeric Is Patient Pain Free? Yes WC - Visit Discharge Discharge Condition Stable Ambulatory Status Ambulatory Transportation Private Auto Medication Reconcilliation completed & No provided to patient/care provider Clinical Summary of Care Provided Yes Assessment/Plan Assessment/Plan (1) Venous insufficiency (chronic) (peripheral): CODE(S): I87.2 - Venous insufficiency (chronic) (peripheral) PLAN: Exam performed Neurovascular status intact, will consider arterial studies if there are any delays in healing Wound decreased in size. No infection. Today left lower extremity wound was excisionally debrided down to including level of subcutaneous tissue of all nonviable tissue using 3 mm dermal curette. Topical anesthesia was used. Pre and postdebridement measurements documented nursing notes. Patient tolerated procedure well. Topical anesthesia used. Hemostasis obtained with light compression. Wound was flushed with copious amounts normal sterile saline, swab culture taken No additional antibiotics needed at this time Today EpiFix graft was applied 4 x 4.5 cm meshed graft, 11 billing units to its entirety to the left leg wound. Entire graft used, no waste. This was stabilized with overlying Adaptic, 4 x 4's, DSD and 3M compression dressing. Patient will follow-up for nursing dressing change and next week for additional care. Significant wound improvement noted today. Patient to follow-up in 1 week (2) Non-pressure chronic ulcer of left ankle with fat layer exposed: CODE(S): L97.322 - Non-pressure chronic ulcer of left ankle with fat layerexposed 12/19/23 1029 <Electronically signed by Nick Forbes DPM> Cosigner Signature (if applicable): CC: ~ Signed [facility] Work Phone: [phone] Progress note Author Nick Forbes [facility] December 12, 2023 9:35am Note Date/Time December 12, 2023 9:3 5am [facility] [address] [place] [id number] Progress Note - Wound Care 12/12/23 0934 MR#: [id number] Acct: [id number] Name: ABDOUL ALICEA Rep #:[id number] : 1950 73 From: Nick Forbes DPM PCP: Dr. Katlyn Lantigua MD Status:REG RCR Location: History of Present Illness Date of Service: 12/12/23 History of Wound: 72-year-old male has had a wound since May 2023. Patient was chopping firewood and had a few piece of wood fall onto his left leg. Patient suffered a laceration was seen in the emergency department at that time which they flushed and cleaned the wound and closed it primarily after updating his tetanus status. Patient subsequently had his sutures removed and developed a full- thickness ulceration to his left medial leg. Patient had been performingself-care with daily dressing changes and noticed no healing, therefore, he presents today. Patient has no obvious medical problems and is not currently onany long-term medications. Patient does have bilateral lower extremity swelling. 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 Patient notes some pain to the wound site. Patient has no other complaints. Objective Data Objective Data Vital Signs: Vital Signs Temp Pulse Resp BP 97.7 F L 72 20 H 169/78 H 12/12/23 09:11 12/05/23 08:57 12/12/23 09:11 12/05/23 08:57 Weight: 106.141 kg Body Mass Index (BMI) 31.7 Physical Exam Narrative Patient has palpable 2 out of 4 DP PT pulses to right lower extremity. Left lower extremity PT is palpable 2 out of 4. Dorsalis pedis is biphasic On Doppler examination. Patient has +2 pitting edema to bilateral lower extremity perimalleolar region with positive hemosiderin deposits and superficial varicosities. Patient has intact light touch protective sensation as well as deep tendon reflexes Achilles. No obvious clonus. Full-thickness wound noted to the medial left ankle along the course of the great saphenous vein with a stable granular base. Wound decreased in size. No overt signs of infection such as erythema malodor or purulent drainage warmth. There is some pain to the wound and periwound area. Musculoskeletal muscular strength full to bilateral lower extremity compartments. No wounds forming deformities noted. No sign DVT. Const alert and oriented x3 Debridement Note Debridement Note Post-Debridement Measurements and Additional Note: Post-Debridement Measurements/Treatment WC - Nurse 1 - General Ulcer Assessment Start: 11/28/23 09:28 Freq: Status: Active Protocol: MIKAELA Activity Type Activity Date Activity User E-sign Co-sign Detail Recorded Client Recorded Date Recorded By Document 11/28/23 09:28 RB Desktop 11/28/23 09:30 RB Document 12/05/23 08:57 DL Desktop 12/05/23 09:06 DL Document 12/12/23 09:11 KW Desktop 12/12/23 09:13 KW 11/28/23 12/05/23 12/12/23 09:28 08:57 09:11 WC - Today's Visit Information Type of service Follow-up Visit Follow-up Visit Follow-up Visit (Physician/DATABASE REPORT WRITER (Physician/DATABASE REPORT WRITER (Physician/DATABASE REPORT WRITER ) ) ) Arrival Mode Ambulatory Ambulatory Ambulatory Transfer Assistance None None None Patient Identification Verified (Name & Yes Yes Yes ) Patient Requires Transmission-Based No No No Precautions Height and Weight Body Mass Index (BMI) 31.7 31.7 31.7 BMI Classification Obese Obese Obese Vital Signs Temperature (97.8 F-99.1 F) 97.1 F L 97.9 F 97.7 F L Temperature Source Temporal Temporal Temporal Pulse Rate (60-100) 67 72 Pulse Location Monitor Monitor Respiratory Rate (12-18) 18 20 H 20 H Respiratory rate source Observation Observation Blood Pressure (90/60-120/80) 154/67 H 169/78 H Blood Pressure Mean (mm Hg) 96 108 Source Monitor Monitor Position Semi-Fowlers Blood Pressure Location Left Arm History Since Last Visit- (Skip if this is Patient's initial visit) Have you changed medications since your No No No last visit? Any new allergies or adverse reactions No No No Had a fall/change in ADL's that may No No No increase risk of falls Signs or symptoms of abuse and/or No No No neglect since last visit Have you been in the hospital since your No No No last visit? Has dressing in place as prescribed Yes Yes No Has compression in place as prescribed Yes Yes Yes Has offloadiing in place as prescribed No N/A N/A Experienced any changes in pain level or No No No management Pain Scale: 0-10 Numeric Is Patient Pain Free? Yes Yes Yes KIRSTY - Nurse 1 - General Ulcer Measurement Start: 11/28/23 09:28 Freq: Status: Active Protocol: Activity Type Activity Date Activity User E-sign Co-sign Detail Recorded Client Recorded Date Recorded By Document 11/28/23 09:28 RB Desktop 11/28/23 09:30 RB Document 12/05/23 08:57 DL Desktop 12/05/23 09:06 DL Document 12/12/23 09:11 KW Desktop 12/12/23 09:13 KW 11/28/23 12/05/23 12/12/23 09:28 08:57 09:11 Wound Center Nurse 1 1. LLE -Combined with other wound No -Current Size (cm) - Length 4 4 3.9 -Current Size (cm) - Width 2.2 2 2.4 -Current Size (cm) - Depth 0.1 0.1 0.1 -Total Square Cm 8.8 8 9.36 -Photo Taken Yes Yes -Tunneling No -Undermining/Tunneling No -Circular Undermining No -Exudate Amt Large Medium Medium -Exudate Type Serosanguineous Serosanguineous Serosanguineous -Wound Margin Distinct, Distinct, Distinct, Outline Outline Outline Attached Attached Attached -Granulation Amt Medium (34-66%) Medium (34-66%) Medium (34-66%) -Granulation Quality Kersey Red Red -Slough/Fibrin Yes -Necrosis Amt Medium (34-66%) Medium (34-66%) Medium (34-66%) -Necrotic Tissue Type Adherent Slough Adherent Slough Adherent Slough -Structure Exposed N/A N/A N/A -Texture (Astrid-wound Skin Appearance) Assessed Scarring Scarring -Moisture (Astrid-wound Skin Appearance) Assessed No Abnormality No Abnormality -Color (Astrid-wound Skin Appearance) Hemosiderin No Abnormality No Abnormality Staining -Temperature (Astrid-wound Skin No Abnormality No Abnormality No Abnormality Appearance) (Pt Warm) (Pt Warm) (Pt Warm) -Tenderness on Palpation (Astrid-wound No No Skin Appearance) -Ulcer Cleansing Wound Cleanser Soap and Water Soap and Water -Foul Odor after Cleansing No No No -Anesthetic Used 5% Lidocaine 5% Lidocaine 5% Lidocaine Gel Gel Gel Lower Limb Edema Present Yes Left Calf (cm) 41 39.5 40.2 Left Ankle (cm) 23.7 23.2 22.5 WC - Nurse 2 - General Ulcer CM Notes Start: 11/28/23 09:28 Freq: Status: Active Protocol: Activity Type Activity Date Activity User E-sign Co-sign Detail Recorded Client Recorded Date Recorded By Document 11/28/23 09:37 Laptop 11/28/23 09:44 JF Document 12/05/23 09:54 Laptop 12/05/23 10:01 Document 12/12/23 09:21 Laptop 12/12/23 09:29 11/28/23 12/05/23 12/12/23 09:37 09:54 09:21 Wound Center Nurse 2 1. LLE -Time 09:37 09:54 -Correct Patient Yes Yes Yes -Correct Side, Site, Position Yes Yes Yes -Correct Procedure Yes Yes Yes -Procedure Performed Yes Yes Yes -Type of Procedure Debridement Debridement Debridement -Clinical Debridement Subcutaneous Subcutaneous Subcutaneous -Tissue Removed Subcutaneous Subcutaneous Subcutaneous -Post Debridement (cm) - Length 4.8 4.2 4.0 -Post Debridement (cm) - Width 2.3 2.3 2.5 -Post Debridement (cm) - Depth 0.1 0.1 0.1 -Total Square (Post) (cm) 11.04 9.66 10.00 -Area of Debridement (cm) - Length 4.8 4.2 4.0 -Area of Debridement (cm) - Width 2.3 2.3 2.5 -Total Square (Area) (cm) 11.04 9.66 10.00 -Tunneling No No No -Undermining/Tunneling No No No -Circular Undermining No No No -Wound/Ulcer Outcome Not Healed Not Healed Not Healed -Ulcer Cleansing Rinsed/ Rinsed/ Rinsed/ Irrigated with Irrigated with Irrigated with Saline Saline Saline -Foul Odor after Cleansing No No No -Bioengineered Tissue Yes Yes Yes -Type of Bioengineered Tissue Epifix Mesh Epifix Mesh Epifix Mesh -Expiration Date 04/28/28 05/28/28 06/28/28 -Product Lot Number [id number] -Percent Used 100 100 100 -Lot number of Saline Used [id number] -Bleeding Controlled with Pressure Pressure Pressure -Treatment Response Procedure Procedure Procedure Tolerated Well Tolerated Well Tolerated Well -Offloading No No No -Debridement - Subq, 1st 20sq cm No No No -Apply Skin Sub - 1st 25 sq cm - Legs 1 1 -Epifix Mesh (per sq cm) 11 11 Pain Scale: 0-10 Numeric Is Patient Pain Free? Yes Yes Yes - Nurse 3 - General Ulcer D/C NN Start: 11/28/23 09:28 Freq: Status: Active Protocol: Activity Type Activity Date Activity User E-sign Co-sign Detail Recorded Client Recorded Date Recorded By Document 11/28/23 09:56 KW Desktop 11/28/23 09:56 KW Document 12/05/23 10:13 DL Desktop 12/05/23 10:14 DL 11/28/23 12/05/23 09:56 10:13 Wound Care Center Nurse 3 1. LLE -Foul Odor after Cleansing No -Primary Dressing Applied Mepilex Border Mepilex Border -Other Dressing epifix/hydrogel -Primary Dressing Covered/Secured with Dry Gauze -Mepilex Border 1 1 Left -Tubular Bandage Double Layer Double Layer -Size of Tubigrip Used Size E Size E -Size E ($) 2 1 Treatment Response Procedure Tolerated Well Pain Scale: 0-10 Numeric Is Patient Pain Free? Yes Yes WC - Visit Discharge Discharge Condition Stable Stable Ambulatory Status Ambulatory Ambulatory Transportation Private Auto Private Auto Medication Reconcilliation completed & No provided to patient/care provider Clinical Summary of Care Provided Yes Assessment/Plan Assessment/Plan (1) Venous insufficiency (chronic) (peripheral): CODE(S): I87.2 - Venous insufficiency (chronic) (peripheral) PLAN: Exam performed Neurovascular status intact, will consider arterial studies if there are any delays in healing Wound decreased in size. No infection. Today left lower extremity wound was excisionally debrided down to including level of subcutaneous tissue of all nonviable tissue using 3 mm dermal curette. Topical anesthesia was used. Pre and postdebridement measurements documented nursing notes. Patient tolerated procedure well. Topical anesthesia used. Hemostasis obtained with light compression. Wound was flushed with copious amounts normal sterile saline, swab culture taken No additional antibiotics needed at this time Today EpiFix graft was applied 4 x 4.5 cm meshed graft, 11 billing units to its entirety to the left leg wound. Entire graft used, no waste. This was stabilized with overlying Adaptic, 4 x 4's, DSD and 3M compression dressing. Patient will follow-up for nursing dressing change and next week for additional care. Significant wound improvement noted today. Patient to follow-up in 1 week (2) Non-pressure chronic ulcer of left ankle with fat layer exposed: CODE(S): L97.322 - Non-pressure chronic ulcer of left ankle with fat layerexposed 12/12/23 0935 <Electronically signed by Nick Forbes DPM> Cosigner Signature (if applicable): CC: ~ Signed [facility] Work Phone: [phone] Progress note Author Nick Forbes [facility] December 05, 2023 10:34am Note Date/Time December 05, 2023 10:3 4am [facility] [address] [place] [address] Progress Note - Wound Care 12/05/23 1034 MR#: [id number] Acct: [id number] Name: MANIABDOUL Rep #:[id number] : 1950 73 From: Nick Forbes DPM PCP: Dr. Katlyn Lantigua MD Status:REG RCR Location: History of Present Illness Date of Service: 12/05/23 History of Wound: 72-year-old male has had a wound since May 2023. Patient was chopping firewood and had a few piece of wood fall onto his left leg. Patient suffered a laceration was seen in the emergency department at that time which they flushed and cleaned the wound and closed it primarily after updating his tetanus status. Patient subsequently had his sutures removed and developed a full- thickness ulceration to his left medial leg. Patient had been performingself-care with daily dressing changes and noticed no healing, therefore, he presents today. Patient has no obvious medical problems and is not currently onany long-term medications. Patient does have bilateral lower extremity swelling. 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 Patient notes some pain to the wound site. Patient has no other complaints. Objective Data Objective Data Vital Signs: Vital Signs Temp Pulse Resp BP 97.9 F 72 20 H 169/78 H 12/05/23 08:57 04/09/24 08:57 12/05/23 08:57 12/05/23 08:57 Weight: 106.141 kg Body Mass Index (BMI) 31.7 Physical Exam Narrative Patient has palpable 2 out of 4 DP PT pulses to right lower extremity. Left lower extremity PT is palpable 2 out of 4. Dorsalis pedis is biphasic On Doppler examination. Patient has +2 pitting edema to bilateral lower extremity perimalleolar region with positive hemosiderin deposits and superficial varicosities. Patient has intact light touch protective sensation as well as deep tendon reflexes Achilles. No obvious clonus. Full-thickness wound noted to the medial left ankle along the course of the great saphenous vein with a stable granular base. Wound decreased in size. No overt signs of infection such as erythema malodor or purulent drainage warmth. There is some pain to the wound and periwound area. Musculoskeletal muscular strength full to bilateral lower extremity compartments. No wounds forming deformities noted. No sign DVT. Const alert and oriented x3 Debridement Note Debridement Note Post-Debridement Measurements and Additional Note: Post-Debridement Measurements/Treatment - Nurse 1 - General Ulcer Assessment Start: 11/28/23 09:28 Freq: Status: Active Protocol: WC.LOWEXT Activity Type Activity Date Activity User E-sign Co-sign Detail Recorded Client Recorded Date Recorded By Document 11/28/23 09:28 RB Desktop 11/28/23 09:30 RB Document 12/05/23 08:57 DL Desktop 12/05/23 09:06 DL 11/28/23 12/05/23 09:28 08:57 - Today's Visit Information Type of service Follow-up Visit Follow-up Visit (Physician/DATABASE REPORT WRITER (Physician/DATABASE REPORT WRITER ) ) Arrival Mode Ambulatory Ambulatory Transfer Assistance None None Patient Identification Verified (Name & Yes Yes ) Patient Requires Transmission-Based No No Precautions Height and Weight Body Mass Index (BMI) 31.7 31.7 BMI Classification Obese Obese Vital Signs Temperature (97.8 F-99.1 F) 97.1 F L 97.9 F Temperature Source Temporal Temporal Pulse Rate (60-100) 67 72 Pulse Location Monitor Monitor Respiratory Rate (12-18) 18 20 H Respiratory rate source Observation Observation Blood Pressure (90/60-120/80) 154/67 H 169/78 H Blood Pressure Mean (mm Hg) 96 108 Source Monitor Monitor Position Semi-Fowlers Blood Pressure Location Left Arm History Since Last Visit- (Skip if this is Patient's initial visit) Have you changed medications since your No No last visit? Any new allergies or adverse reactions No No Had a fall/change in ADL's that may No No increase risk of falls Signs or symptoms of abuse and/or No No neglect since last visit Have you been in the hospital since your No No last visit? Has dressing in place as prescribed Yes Yes Has compression in place as prescribed Yes Yes Has offloadiing in place as prescribed No N/A Experienced any changes in pain level or No No management Pain Scale: 0-10 Numeric Is Patient Pain Free? Yes Yes WC - Nurse 1 - General Ulcer Measurement Start: 11/28/23 09:28 Freq: Status: Active Protocol: Activity Type Activity Date Activity User E-sign Co-sign Detail Recorded Client Recorded Date Recorded By Document 11/28/23 09:28 RB Desktop 11/28/23 09:30 RB Document 12/05/23 08:57 DL Desktop 12/05/23 09:06 DL 11/28/23 12/05/23 09:28 08:57 Wound Center Nurse 1 1. LLE -Combined with other wound No -Current Size (cm) - Length 4 4 -Current Size (cm) - Width 2.2 2 -Current Size (cm) - Depth 0.1 0.1 -Total Square Cm 8.8 8 -Photo Taken Yes -Tunneling No -Undermining/Tunneling No -Circular Undermining No -Exudate Amt Large Medium -Exudate Type Serosanguineous Serosanguineous -Wound Margin Distinct, Distinct, Outline Outline Attached Attached -Granulation Amt Medium (34-66%) Medium (34-66%) -Granulation Quality Kersey Red -Slough/Fibrin Yes -Necrosis Amt Medium (34-66%) Medium (34-66%) -Necrotic Tissue Type Adherent Slough Adherent Slough -Structure Exposed N/A N/A -Texture (Astrid-wound Skin Appearance) Assessed Scarring -Moisture (Astrid-wound Skin Appearance) Assessed No Abnormality -Color (Astrid-wound Skin Appearance) Hemosiderin No Abnormality Staining -Temperature (Astrid-wound Skin No Abnormality No Abnormality Appearance) (Pt Warm) (Pt Warm) -Tenderness on Palpation (Astrid-wound No Skin Appearance) -Ulcer Cleansing Wound Cleanser Soap and Water -Foul Odor after Cleansing No No -Anesthetic Used 5% Lidocaine 5% Lidocaine Gel Gel Lower Limb Edema Present Yes Left Calf (cm) 41 39.5 Left Ankle (cm) 23.7 23.2 - Nurse 2 - General Ulcer CM Notes Start: 11/28/23 09:28 Freq: Status: Active Protocol: Activity Type Activity Date Activity User E-sign Co-sign Detail Recorded Client Recorded Date Recorded By Document 11/28/23 09:37 Laptop 11/28/23 09:44 JF Document 12/05/23 09:54 Laptop 12/05/23 10:01 11/28/23 12/05/23 09:37 09:54 Wound Center Nurse 2 1. LLE -Time 09:37 09:54 -Correct Patient Yes Yes -Correct Side, Site, Position Yes Yes -Correct Procedure Yes Yes -Procedure Performed Yes Yes -Type of Procedure Debridement Debridement -Clinical Debridement Subcutaneous Subcutaneous -Tissue Removed Subcutaneous Subcutaneous -Post Debridement (cm) - Length 4.8 4.2 -Post Debridement (cm) - Width 2.3 2.3 -Post Debridement (cm) - Depth 0.1 0.1 -Total Square (Post) (cm) 11.04 9.66 -Area of Debridement (cm) - Length 4.8 4.2 -Area of Debridement (cm) - Width 2.3 2.3 -Total Square (Area) (cm) 11.04 9.66 -Tunneling No No -Undermining/Tunneling No No -Circular Undermining No No -Wound/Ulcer Outcome Not Healed Not Healed -Ulcer Cleansing Rinsed/ Rinsed/ Irrigated with Irrigated with Saline Saline -Foul Odor after Cleansing No No -Bioengineered Tissue Yes Yes -Type of Bioengineered Tissue Epifix Mesh Epifix Mesh -Expiration Date 04/28/28 05/28/28 -Product Lot Number [id number] -Percent Used 100 100 -Lot number of Saline Used [id number] -Bleeding Controlled with Pressure Pressure -Treatment Response Procedure Procedure Tolerated Well Tolerated Well -Offloading No No -Debridement - Subq, 1st 20sq cm No No -Apply Skin Sub - 1st 25 sq cm - Legs 1 1 -Epifix Mesh (per sq cm) 11 11 Pain Scale: 0-10 Numeric Is Patient Pain Free? Yes Yes - Nurse 3 - General Ulcer D/C NN Start: 11/28/23 09:28 Freq: Status: Active Protocol: Activity Type Activity Date Activity User E-sign Co-sign Detail Recorded Client Recorded Date Recorded By Document 11/28/23 09:56 KW Desktop 11/28/23 09:56 KW Document 12/05/23 10:13 DL Desktop 12/05/23 10:14 DL 11/28/23 12/05/23 09:56 10:13 Wound Care Center Nurse 3 1. LLE -Foul Odor after Cleansing No -Primary Dressing Applied Mepilex Border Mepilex Border -Other Dressing epifix/hydrogel -Primary Dressing Covered/Secured with Dry Gauze -Mepilex Border 1 1 Left -Tubular Bandage Double Layer Double Layer -Size of Tubigrip Used Size E Size E -Size E ($) 2 1 Treatment Response Procedure Tolerated Well Pain Scale: 0-10 Numeric Is Patient Pain Free? Yes Yes WC - Visit Discharge Discharge Condition Stable Stable Ambulatory Status Ambulatory Ambulatory Transportation Private Auto Private Auto Medication Reconcilliation completed & No provided to patient/care provider Clinical Summary of Care Provided Yes Assessment/Plan Assessment/Plan (1) Venous insufficiency (chronic) (peripheral): CODE(S): I87.2 - Venous insufficiency (chronic) (peripheral) PLAN: Exam performed Neurovascular status intact, will consider arterial studies if there are any delays in healing Wound decreased in size. No infection. Today left lower extremity wound was excisionally debrided down to including level of subcutaneous tissue of all nonviable tissue using 3 mm dermal curette. Topical anesthesia was used. Pre and postdebridement measurements documented nursing notes. Patient tolerated procedure well. Topical anesthesia used. Hemostasis obtained with light compression. Wound was flushed with copious amounts normal sterile saline, swab culture taken No additional antibiotics needed at this time Today EpiFix graft was applied 4 x 4.5 cm meshed graft, 11 billing units to its entirety to the left leg wound. Entire graft used, no waste. This was stabilized with overlying Adaptic, 4 x 4's, DSD and 3M compression dressing. Patient will follow-up for nursing dressing change and next week for additional care. Significant wound improvement noted today. Patient to follow-up in 1 week (2) Non-pressure chronic ulcer of left ankle with fat layer exposed: CODE(S): L97.322 - Non-pressure chronic ulcer of left ankle with fat layerexposed 12/05/23 1034 <Electronically signed by Nick Forbes DPM> Cosigner Signature (if applicable): CC: ~ Signed [facility] Work Phone: 1(866) 962-831404-02-2024 Progress note Author Nick Forbes [facility] November 28, 2023 10:02am Note Date/Time November 28, 2023 10:0 2am [facility] [address] [place] [address] Progress Note - Wound Care 11/28/23 1001 MR#: [id number] Acct: [id number] Name: ABDOUL ALICEA Rep #:[id number] : 1950 73 From: Nick Forbes DPM PCP: Dr. Katlyn Lantigua MD Status:REG RCR Location: History of Present Illness Date of Service: 11/28/23 History of Wound: 72-year-old male has had a wound since May 2023. Patient was chopping firewood and had a few piece of wood fall onto his left leg. Patient suffered a laceration was seen in the emergency department at that time which they flushed and cleaned the wound and closed it primarily after updating his tetanus status. Patient subsequently had his sutures removed and developed a full- thickness ulceration to his left medial leg. Patient had been performingself-care with daily dressing changes and noticed no healing, therefore, he presents today. Patient has no obvious medical problems and is not currently onany long-term medications. Patient does have bilateral lower extremity swelling. 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 Patient notes some pain to the wound site. Patient has no other complaints. Objective Data Objective Data Vital Signs: Vital Signs Temp Pulse Resp BP 97.1 F L 67 18 154/67 H 11/28/23 09:28 11/28/23 09:28 11/28/23 09:28 11/28/23 09:28 Weight: 106.141 kg Body Mass Index (BMI) 31.7 Physical Exam Narrative Patient has palpable 2 out of 4 DP PT pulses to right lower extremity. Left lower extremity PT is palpable 2 out of 4. Dorsalis pedis is biphasic On Doppler examination. Patient has +2 pitting edema to bilateral lower extremity perimalleolar region with positive hemosiderin deposits and superficial varicosities. Patient has intact light touch protective sensation as well as deep tendon reflexes Achilles. No obvious clonus. Full-thickness wound noted to the medial left ankle along the course of the great saphenous vein with a stable granular base. Wound decreased in size. No overt signs of infection such as erythema malodor or purulent drainage warmth. There is some pain to the wound and periwound area. Musculoskeletal muscular strength full to bilateral lower extremity compartments. No wounds forming deformities noted. No sign DVT. Const alert and oriented x3 Debridement Note Debridement Note Post-Debridement Measurements and Additional Note: Post-Debridement Measurements/Treatment WC - Nurse 1 - General Ulcer Assessment Start: 11/28/23 09:28 Freq: Status: Active Protocol: LOWEXT Activity Type Activity Date Activity User E-sign Co-sign Detail Recorded Client Recorded Date Recorded By Document 11/28/23 09:28 Desktop 11/28/23 09:30 RB 11/28/23 09:28 - Today's Visit Information Type of service Follow-up Visit (Physician/DATABASE REPORT WRITER ) Arrival Mode Ambulatory Transfer Assistance None Patient Identification Verified (Name & Yes ) Patient Requires Transmission-Based No Precautions Height and Weight Body Mass Index (BMI) 31.7 BMI Classification Obese Vital Signs Temperature (97.8 F-99.1 F) 97.1 F L Temperature Source Temporal Pulse Rate (60-100) 67 Pulse Location Monitor Respiratory Rate (12-18) 18 Respiratory rate source Observation Blood Pressure (90/60-120/80) 154/67 H Blood Pressure Mean (mm Hg) 96 Source Monitor Position Semi-Fowlers Blood Pressure Location Left Arm History Since Last Visit- (Skip if this is Patient's initial visit) Have you changed medications since your No last visit? Any new allergies or adverse reactions No Had a fall/change in ADL's that may No increase risk of falls Signs or symptoms of abuse and/or No neglect since last visit Have you been in the hospital since your No last visit? Has dressing in place as prescribed Yes Has compression in place as prescribed Yes Has offloadiing in place as prescribed No Experienced any changes in pain level or No management Pain Scale: 0-10 Numeric Is Patient Pain Free? Yes KIRSTY - Nurse 1 - General Ulcer Measurement Start: 11/28/23 09:28 Freq: Status: Active Protocol: Activity Type Activity Date Activity User E-sign Co-sign Detail Recorded Client Recorded Date Recorded By Document 11/28/23 09:28 RB Desktop 11/28/23 09:30 RB 11/28/23 09:28 Wound Center Nurse 1 1. LLE -Combined with other wound No -Current Size (cm) - Length 4 -Current Size (cm) - Width 2.2 -Current Size (cm) - Depth 0.1 -Total Square Cm 8.8 -Tunneling No -Undermining/Tunneling No -Circular Undermining No -Exudate Amt Large -Exudate Type Serosanguineous -Wound Margin Distinct, Outline Attached -Granulation Amt Medium (34-66%) -Granulation Quality Kersey -Slough/Fibrin Yes -Necrosis Amt Medium (34-66%) -Necrotic Tissue Type Adherent Slough -Structure Exposed N/A -Texture (Astrid-wound Skin Appearance) Assessed -Moisture (Astrid-wound Skin Appearance) Assessed -Color (Astrid-wound Skin Appearance) Hemosiderin Staining -Temperature (Astrid-wound Skin No Abnormality Appearance) (Pt Warm) -Tenderness on Palpation (Astrid-wound No Skin Appearance) -Ulcer Cleansing Wound Cleanser -Foul Odor after Cleansing No -Anesthetic Used 5% Lidocaine Gel Lower Limb Edema Present Yes Left Calf (cm) 41 Left Ankle (cm) 23.7 KIRSTY - Nurse 2 - General Ulcer CM Notes Start: 11/28/23 09:28 Freq: Status: Active Protocol: Activity Type Activity Date Activity User E-sign Co-sign Detail Recorded Client Recorded Date Recorded By Document 11/28/23 09:37 JF Laptop 11/28/23 09:44 11/28/23 09:37 Wound Center Nurse 2 1. LLE -Time 09:37 -Correct Patient Yes -Correct Side, Site, Position Yes -Correct Procedure Yes -Procedure Performed Yes -Type of Procedure Debridement -Clinical Debridement Subcutaneous -Tissue Removed Subcutaneous -Post Debridement (cm) - Length 4.8 -Post Debridement (cm) - Width 2.3 -Post Debridement (cm) - Depth 0.1 -Total Square (Post) (cm) 11.04 -Area of Debridement (cm) - Length 4.8 -Area of Debridement (cm) - Width 2.3 -Total Square (Area) (cm) 11.04 -Tunneling No -Undermining/Tunneling No -Circular Undermining No -Wound/Ulcer Outcome Not Healed -Ulcer Cleansing Rinsed/ Irrigated with Saline -Foul Odor after Cleansing No -Bioengineered Tissue Yes -Type of Bioengineered Tissue Epifix Mesh -Expiration Date 04/28/28 -Product Lot Number [id number] -Percent Used 100 -Lot number of Saline Used [id number] -Bleeding Controlled with Pressure -Treatment Response Procedure Tolerated Well -Offloading No -Debridement - Subq, 1st 20sq cm No -Apply Skin Sub - 1st 25 sq cm - Legs 1 -Epifix Mesh (per sq cm) 11 Pain Scale: 0-10 Numeric Is Patient Pain Free? Yes - Nurse 3 - General Ulcer D/C NN Start: 11/28/23 09:28 Freq: Status: Active Protocol: Activity Type Activity Date Activity User E-sign Co-sign Detail Recorded Client Recorded Date Recorded By Document 11/28/23 09:56 KW Desktop 11/28/23 09:56 KW 11/28/23 09:56 Wound Care Center Nurse 3 1. LLE -Primary Dressing Applied Mepilex Border -Mepilex Border 1 Left -Tubular Bandage Double Layer -Size of Tubigrip Used Size E -Size E ($) 2 Pain Scale: 0-10 Numeric Is Patient Pain Free? Yes WC - Visit Discharge Discharge Condition Stable Ambulatory Status Ambulatory Transportation Private Auto Medication Reconcilliation completed & No provided to patient/care provider Clinical Summary of Care Provided Yes Assessment/Plan Assessment/Plan (1) Venous insufficiency (chronic) (peripheral): CODE(S): I87.2 - Venous insufficiency (chronic) (peripheral) PLAN: Exam performed Neurovascular status intact, will consider arterial studies if there are any delays in healing Wound decreased in size. No infection. Today left lower extremity wound was excisionally debrided down to including level of subcutaneous tissue of all nonviable tissue using 3 mm dermal curette. Topical anesthesia was used. Pre and postdebridement measurements documented nursing notes. Patient tolerated procedure well. Topical anesthesia used. Hemostasis obtained with light compression. Wound was flushed with copious amounts normal sterile saline, swab culture taken No additional antibiotics needed at this time Today EpiFix graft was applied 4 x 4.5 cm meshed graft, 11 billing units to its entirety to the left leg wound. Entire graft used, no waste. This was stabilized with overlying Adaptic, 4 x 4's, DSD and 3M compression dressing. Patient will follow-up for nursing dressing change and next week for additional care. Significant wound improvement noted today. Patient to follow-up in 1 week (2) Non-pressure chronic ulcer of left ankle with fat layer exposed: CODE(S): L97.322 - Non-pressure chronic ulcer of left ankle with fat layerexposed 11/28/23 1002 <Electronically signed by Nick Forbes DPM> Cosigner Signature (if applicable): CC: ~ Signed [facility] Work Phone: 1(531) 622-225603-26-2024 Progress note Author Nick Forbes [facility] November 21, 2023 9:56am Note Date/Time November 21, 2023 9:5 6am [facility] [address] [place] [id number] Progress Note - Wound Care 11/21/23 0955 MR#: [id number] Acct: [id number] Name: ABDOUL ALICEA Rep #:[id number] : 1950 73 From: Nick Forbes DPM PCP: Dr. Katlyn Lantigua MD Status:[facility] Location: History of Present Illness Date of Service: 11/21/23 History of Wound: 72-year-old male has had a wound since May 2023. Patient was chopping firewood and had a few piece of wood fall onto his left leg. Patient suffered a laceration was seen in the emergency department at that time which they flushed and cleaned the wound and closed it primarily after updating his tetanus status. Patient subsequently had his sutures removed and developed a full- thickness ulceration to his left medial leg. Patient had been performingself-care with daily dressing changes and noticed no healing, therefore, he presents today. Patient has no obvious medical problems and is not currently onany long-term medications. Patient does have bilateral lower extremity swelling. 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 Patient notes some pain to the wound site. Patient has no other complaints. Progress of Wound: Wound improving no issues today. Objective Data Objective Data Vital Signs: Vital Signs Temp Pulse Resp BP O2 Del Method 96.8 F L 70 20 H 110/71 Room Air 11/21/23 08:56 11/21/23 08:56 11/21/23 08:56 11/21/23 08:56 11/14/23 09:20 Oxygen Delivery Method Room Air Weight: 106.141 kg Body Mass Index (BMI) 31.7 Physical Exam Narrative Patient has palpable 2 out of 4 DP PT pulses to right lower extremity. Left lower extremity PT is palpable 2 out of 4. Dorsalis pedis is biphasic On Doppler examination. Patient has +2 pitting edema to bilateral lower extremity perimalleolar region with positive hemosiderin deposits and superficial varicosities. Patient has intact light touch protective sensation as well as deep tendon reflexes Achilles. No obvious clonus. Full-thickness wound noted to the medial left ankle along the course of the great saphenous vein with a stable granular base. Wound decreased in size. No overt signs of infection such as erythema malodor or purulent drainage warmth. There is some pain to the wound and periwound area. Musculoskeletal muscular strength full to bilateral lower extremity compartments. No wounds forming deformities noted. No sign DVT. Const alert and oriented x3 Debridement Note Debridement Note Post-Debridement Measurements and Additional Note: Post-Debridement Measurements/Treatment - Nurse 1 - General Ulcer Assessment Start: 10/31/23 09:12 Freq: Status: Active Protocol: MIKAELA Activity Type Activity Date Activity User E-sign Co-sign Detail Recorded Client Recorded Date Recorded By Document 10/31/23 09:13 RB Desktop 10/31/23 09:15 RB Document 11/07/23 09:07 RB Desktop 11/07/23 09:09 RB Document 11/14/23 09:20 JF Laptop 11/14/23 09:22 JF Document 11/21/23 08:56 DL Desktop 11/21/23 09:05 DL 10/31/23 11/07/23 11/14/23 09:13 09:07 09:20 - Today's Visit Information Type of service Follow-up Visit Follow-up Visit Follow-up Visit (Physician/DATABASE REPORT WRITER (Physician/DATABASE REPORT WRITER (Physician/DATABASE REPORT WRITER ) ) ) Arrival Mode Ambulatory Ambulatory Ambulatory Transfer Assistance None None Patient Identification Verified (Name & Yes Yes Yes ) Patient Requires Transmission-Based No No Precautions Height and Weight Body Mass Index (BMI) 31.7 31.7 31.7 BMI Classification Obese Obese Obese Vital Signs Temperature (97.8 F-99.1 F) 97.7 F L 96.2 F L 97.4 F L Temperature Source Temporal Temporal Temporal Pulse Rate (60-100) 63 64 73 Pulse Location Monitor Monitor Respiratory Rate (12-18) 18 18 18 Respiratory rate source Observation Observation Oxygen Delivery Method Room Air Blood Pressure (90/60-120/80) 145/77 H 156/72 H 150/90 H Blood Pressure Mean (mm Hg) 99 100 110 Source Monitor Monitor Monitor Position Semi-Fowlers Semi-Fowlers Semi-Fowlers Blood Pressure Location Left Arm Left Arm Left Arm History Since Last Visit- (Skip if this is Patient's initial visit) Have you changed medications since your No No No last visit? Any new allergies or adverse reactions No No No Had a fall/change in ADL's that may No No No increase risk of falls Signs or symptoms of abuse and/or No No No neglect since last visit Have you been in the hospital since your No No No last visit? Has dressing in place as prescribed Yes Yes Yes Has compression in place as prescribed Yes Yes Yes Has offloadiing in place as prescribed No No N/A Experienced any changes in pain level or No No No management Left Footwear Regular Shoe Right Footwear Regular Shoe Pain Scale: 0-10 Numeric Is Patient Pain Free? Yes Yes Yes 11/21/23 08:56 WC - Today's Visit Information Type of service Follow-up Visit (Physician/DATABASE REPORT WRITER ) Arrival Mode Ambulatory Transfer Assistance None Patient Identification Verified (Name & Yes ) Patient Requires Transmission-Based No Precautions Height and Weight Body Mass Index (BMI) 31.7 BMI Classification Obese Vital Signs Temperature (97.8 F-99.1 F) 96.8 F L Temperature Source Temporal Pulse Rate (60-100) 70 Pulse Location Monitor Respiratory Rate (12-18) 20 H Respiratory rate source Observation Oxygen Delivery Method Blood Pressure (90/60-120/80) 110/71 Blood Pressure Mean (mm Hg) 84 Source Monitor Position Blood Pressure Location History Since Last Visit- (Skip if this is Patient's initial visit) Have you changed medications since your No last visit? Any new allergies or adverse reactions No Had a fall/change in ADL's that may No increase risk of falls Signs or symptoms of abuse and/or No neglect since last visit Have you been in the hospital since your No last visit? Has dressing in place as prescribed Yes Has compression in place as prescribed Yes Has offloadiing in place as prescribed N/A Experienced any changes in pain level or No management Left Footwear Regular Shoe Right Footwear Regular Shoe Pain Scale: 0-10 Numeric Is Patient Pain Free? Yes WC - Nurse 1 - General Ulcer Measurement Start: 10/31/23 09:12 Freq: Status: Active Protocol: Activity Type Activity Date Activity User E-sign Co-sign Detail Recorded Client Recorded Date Recorded By Document 10/31/23 09:13 RB Desktop 10/31/23 09:15 RB Document 11/07/23 09:07 RB Desktop 11/07/23 09:09 RB Document 11/14/23 09:20 JF Laptop 11/14/23 09:22 JF Document 11/21/23 08:56 DL Desktop 11/21/23 09:05 DL 10/31/23 11/07/23 11/14/23 09:13 09:07 09:20 Wound Center Nurse 1 1. LLE -Combined with other wound No No -Current Size (cm) - Length 5.7 5.5 5 -Current Size (cm) - Width 3.1 3 2.4 -Current Size (cm) - Depth 0.1 0.1 0.1 -Total Square Cm 17.67 16.5 12.0 -Photo Taken Yes -Epithelialization Small 1-33% -Tunneling No No -Undermining/Tunneling No No -Circular Undermining No No -Exudate Amt Large Medium Small -Exudate Type Serosanguineous Serosanguineous Serosanguineous -Wound Margin Distinct, Distinct, Outline Outline Attached Attached -Granulation Amt Medium (34-66%) Medium (34-66%) Large (67-100%) -Granulation Quality Kersey Red Red -Slough/Fibrin Yes Yes -Necrosis Amt Medium (34-66%) Small (1-33%) -Necrotic Tissue Type Adherent Slough Adherent Slough -Structure Exposed N/A N/A -Texture (Astrid-wound Skin Appearance) Assessed, Assessed Assessed Scarring -Moisture (Astrid-wound Skin Appearance) Assessed Assessed Assessed -Color (Astrid-wound Skin Appearance) Assessed Assessed Assessed -Temperature (Astrid-wound Skin No Abnormality No Abnormality Appearance) (Pt Warm) (Pt Warm) -Tenderness on Palpation (Astrid-wound No No Skin Appearance) -Ulcer Cleansing Wound Cleanser Wound Cleanser Rinsed/ Irrigated with Saline -Foul Odor after Cleansing No No No -Anesthetic Used 5% Lidocaine 5% Lidocaine 5% Lidocaine Gel Gel Gel Lower Limb Edema Present Yes Yes Left Calf (cm) 41 40 39 Left Ankle (cm) 24.5 23.2 24 11/21/23 08:56 Wound Center Nurse 1 1. LLE -Combined with other wound -Current Size (cm) - Length 4.5 -Current Size (cm) - Width 2.8 -Current Size (cm) - Depth 0.1 -Total Square Cm 12.60 -Photo Taken -Epithelialization -Tunneling -Undermining/Tunneling -Circular Undermining -Exudate Amt Medium -Exudate Type Serosanguineous -Wound Margin Distinct, Outline Attached -Granulation Amt Medium (34-66%) -Granulation Quality Red -Slough/Fibrin -Necrosis Amt Large (67-100%) -Necrotic Tissue Type Adherent Slough -Structure Exposed N/A -Texture (Astrid-wound Skin Appearance) Scarring -Moisture (Astrid-wound Skin Appearance) No Abnormality -Color (Astrid-wound Skin Appearance) No Abnormality -Temperature (Astrid-wound Skin No Abnormality Appearance) (Pt Warm) -Tenderness on Palpation (Astrid-wound Skin Appearance) -Ulcer Cleansing Soap and Water -Foul Odor after Cleansing No -Anesthetic Used 5% Lidocaine Gel Lower Limb Edema Present Left Calf (cm) 39.4 Left Ankle (cm) 22.5 WC - Nurse 2 - General Ulcer CM Notes Start: 10/31/23 09:12 Freq: Status: Active Protocol: Activity Type Activity Date Activity User E-sign Co-sign Detail Recorded Client Recorded Date Recorded By Document 10/31/23 09:23 Laptop 10/31/23 09:25 Document 11/07/23 09:14 Laptop 11/07/23 09:17 Document 11/14/23 09:27 Laptop 11/14/23 09:29 JF Document 11/21/23 09:11 MW Desktop 11/21/23 09:19 MW 10/31/23 11/07/23 11/14/23 09:23 09:14 09:27 Wound Center Nurse 2 1. LLE -Time 09:15 09:28 -Correct Patient Yes Yes Yes -Correct Side, Site, Position Yes Yes Yes -Correct Procedure Yes Yes Yes -Procedure Performed Yes Yes Yes -Type of Procedure Debridement Debridement Debridement -Clinical Debridement Subcutaneous Subcutaneous Subcutaneous -Tissue Removed Subcutaneous Subcutaneous Subcutaneous -Post Debridement (cm) - Length 2.8 6.0 5.2 -Post Debridement (cm) - Width 5.5 3.0 2.5 -Post Debridement (cm) - Depth 0.1 0.1 0.1 -Total Square (Post) (cm) 15.40 18.00 13.00 -Area of Debridement (cm) - Length 2.8 6.0 5.2 -Area of Debridement (cm) - Width 5.5 3.0 2.5 -Total Square (Area) (cm) 15.40 18.00 13.00 -Tunneling No No No -Undermining/Tunneling No No No -Circular Undermining No No No -Wound/Ulcer Outcome Not Healed Not Healed Not Healed -Ulcer Cleansing Rinsed/ Rinsed/ Rinsed/ Irrigated with Irrigated with Irrigated with Saline Saline Saline -Foul Odor after Cleansing No No No -Bioengineered Tissue Yes Yes Yes -Type of Bioengineered Tissue Epifix Mesh Epifix Mesh Epifix Mesh -Expiration Date 05/28/28 05/28/28 05/28/28 -Product Lot Number [id number] -Percent Used 100 100 100 -Lot number of Saline Used [id number] -Bleeding Controlled with Pressure Pressure Pressure -Treatment Response Procedure Procedure Procedure Tolerated Well Tolerated Well Tolerated Well -Offloading No No No -Debridement - Subq, 1st 20sq cm No No No -Apply Skin Sub - 1st 25 sq cm - Legs 1 1 1 -Epifix Mesh (per sq cm) 11 11 11 Pain Scale: 0-10 Numeric Is Patient Pain Free? Yes Yes Yes 11/21/23 09:11 Wound Center Nurse 2 1. LLE -Time 09:12 -Correct Patient Yes -Correct Side, Site, Position Yes -Correct Procedure Yes -Procedure Performed Yes -Type of Procedure Debridement -Clinical Debridement Subcutaneous -Tissue Removed Subcutaneous -Post Debridement (cm) - Length 4.9 -Post Debridement (cm) - Width 2.5 -Post Debridement (cm) - Depth 0.1 -Total Square (Post) (cm) 12.25 -Area of Debridement (cm) - Length 4.9 -Area of Debridement (cm) - Width 2.5 -Total Square (Area) (cm) 12.25 -Tunneling No -Undermining/Tunneling No -Circular Undermining No -Wound/Ulcer Outcome Not Healed -Ulcer Cleansing Wound Cleanser -Foul Odor after Cleansing No -Bioengineered Tissue Yes -Type of Bioengineered Tissue Epifix Mesh -Expiration Date 04/28/28 -Product Lot Number [id number] -Percent Used 100 -Lot number of Saline Used [id number] -Bleeding Controlled with Pressure -Treatment Response Procedure Tolerated Well -Offloading No -Debridement - Subq, 1st 20sq cm No -Apply Skin Sub - 1st 25 sq cm - Legs 1 -Epifix Mesh (per sq cm) 11 Pain Scale: 0-10 Numeric Is Patient Pain Free? Yes WC - Nurse 3 - General Ulcer D/C NN Start: 10/31/23 09:12 Freq: Status: Active Protocol: Activity Type Activity Date Activity User E-sign Co-sign Detail Recorded Client Recorded Date Recorded By Document 10/31/23 09:39 RB Desktop 10/31/23 09:40 RB Document 11/07/23 09:24 KW Desktop 11/07/23 09:24 KW Edit Result 11/07/23 09:24 KW (1) Desktop 11/07/23 09:32 RB Document 11/14/23 09:34 JF Laptop 11/14/23 09:35 JF Document 11/21/23 09:33 DL Desktop 11/21/23 09:34 DL (1) 1. LLE - Other Dressing => hydrogel - Mepilex Border 2 => 1 10/31/23 11/07/23 11/14/23 09:39 09:24 09:34 Wound Care Center Nurse 3 1. LLE -Foul Odor after Cleansing -Primary Dressing Applied Mepilex Border Mepilex Border -Other Dressing abd pad hydrogel -Primary Dressing Covered/Secured with Dry Gauze -Mepilex Border 1 1 Left -Multi-Layered Wrap Application Multi-Layer Comp - Left ($) -Tubular Bandage Double Layer Single Layer -Size of Tubigrip Used Size E Size E -Size E ($) 2 1 -Other Treatment Response Procedure Tolerated Well Pain Scale: 0-10 Numeric Is Patient Pain Free? Yes Yes Yes WC - Visit Discharge Discharge Condition Stable Stable Stable Ambulatory Status Ambulatory Ambulatory Cane Transportation Private Auto Private Auto Medication Reconcilliation completed & No No Yes provided to patient/care provider Clinical Summary of Care Provided Yes Yes Yes 11/21/23 09:33 Wound Care Center Nurse 3 1. LLE -Foul Odor after Cleansing No -Primary Dressing Applied Mepilex Border -Other Dressing Epimesh -Primary Dressing Covered/Secured with -Mepilex Border 2 Left -Multi-Layered Wrap Application -Tubular Bandage -Size of Tubigrip Used -Size E ($) -Other tubigrip Treatment Response Procedure Tolerated Well Pain Scale: 0-10 Numeric Is Patient Pain Free? Yes WC - Visit Discharge Discharge Condition Stable Ambulatory Status Ambulatory Transportation Private Auto Medication Reconcilliation completed & provided to patient/care provider Clinical Summary of Care Provided Assessment/Plan Assessment/Plan (1) Venous insufficiency (chronic) (peripheral): CODE(S): I87.2 - Venous insufficiency (chronic) (peripheral) PLAN: Exam performed Neurovascular status intact, will consider arterial studies if there are any delays in healing Wound decreased in size. No infection. Today left lower extremity wound was excisionally debrided down to including level of subcutaneous tissue of all nonviable tissue using 3 mm dermal curette. Topical anesthesia was used. Pre and postdebridement measurements documented nursing notes. Patient tolerated procedure well. Topical anesthesia used. Hemostasis obtained with light compression. Wound was flushed with copious amounts normal sterile saline, swab culture taken No additional antibiotics needed at this time Today EpiFix graft was applied 4 x 4.5 cm meshed graft, 11 billing units to its entirety to the left leg wound. Entire graft used, no waste. This was stabilized with overlying Adaptic, 4 x 4's, DSD and 3M compression dressing. Patient will follow-up for nursing dressing change and next week for additional care. Significant wound improvement noted today. Patient to follow-up in 1 week Today prescription for Medrol Dosepak was given 11/21/2023. (2) Non-pressure chronic ulcer of left ankle with fat layer exposed: CODE(S): L97.322 - Non-pressure chronic ulcer of left ankle with fat layerexposed 11/21/23 0956 <Electronically signed by Nick Forbes DPM> Cosigner Signature (if applicable): CC: ~ Signed [facility] Work Phone: [phone]) 300-188503-19-2024 Progress note Author Nick Forbes [facility] November 14, 2023 10:38am Note Date/Time November 14, 2023 10: 38am [facility] [address] [place] [address] Progress Note - Wound Care 11/14/23 1037 MR#: [id number] Acct: [id number] Name: ABDOUL ALICEA Rep #:[id number] : 1950 73 From: Nick Forbes DPM PCP: Dr. Katlyn Lantigua MD Status:REG RCR Location: History of Present Illness Date of Service: 11/14/23 History of Wound: 72-year-old male has had a wound since May 2023. Patient was chopping firewood and had a few piece of wood fall onto his left leg. Patient suffered a laceration was seen in the emergency department at that time which they flushed and cleaned the wound and closed it primarily after updating his tetanus status. Patient subsequently had his sutures removed and developed a full- thickness ulceration to his left medial leg. Patient had been performingself-care with daily dressing changes and noticed no healing, therefore, he presents today. Patient has no obvious medical problems and is not currently onany long-term medications. Patient does have bilateral lower extremity swelling. 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 Patient notes some pain to the wound site. Patient has no other complaints. Progress of Wound: Wound improving no issues today. Objective Data Objective Data Vital Signs: Vital Signs Temp Pulse Resp BP O2 Del Method 97.4 F L 73 18 150/90 H Room Air 11/14/23 09:20 11/14/23 09:20 11/14/23 09:20 11/14/23 09:20 11/14/23 09:20 Oxygen Delivery Method Room Air Weight: 106.141 kg Body Mass Index (BMI) 31.7 Physical Exam Narrative Patient has palpable 2 out of 4 DP PT pulses to right lower extremity. Left lower extremity PT is palpable 2 out of 4. Dorsalis pedis is biphasic On Doppler examination. Patient has +2 pitting edema to bilateral lower extremity perimalleolar region with positive hemosiderin deposits and superficial varicosities. Patient has intact light touch protective sensation as well as deep tendon reflexes Achilles. No obvious clonus. Full-thickness wound noted to the medial left ankle along the course of the great saphenous vein with a stable granular base. Wound decreased in size. No overt signs of infection such as erythema malodor or purulent drainage warmth. There is some pain to the wound and periwound area. Musculoskeletal muscular strength full to bilateral lower extremity compartments. No wounds forming deformities noted. No sign DVT. Const alert and oriented x3 Debridement Note Debridement Note Post-Debridement Measurements and Additional Note: Post-Debridement Measurements/Treatment - Nurse 1 - General Ulcer Assessment Start: 10/31/23 09:12 Freq: Status: Active Protocol: .LOWEXT Activity Type Activity Date Activity User E-sign Co-sign Detail Recorded Client Recorded Date Recorded By Document 10/31/23 09:13 Desktop 10/31/23 09:15 RB Document 11/07/23 09:07 RB Desktop 11/07/23 09:09 RB Document 11/14/23 09:20 Laptop 11/14/23 09:22 10/31/23 11/07/23 11/14/23 09:13 09:07 09:20 - Today's Visit Information Type of service Follow-up Visit Follow-up Visit Follow-up Visit (Physician/DATABASE REPORT WRITER (Physician/DATABASE REPORT WRITER (Physician/DATABASE REPORT WRITER ) ) ) Arrival Mode Ambulatory Ambulatory Ambulatory Transfer Assistance None None Patient Identification Verified (Name & Yes Yes Yes ) Patient Requires Transmission-Based No No Precautions Height and Weight Body Mass Index (BMI) 31.7 31.7 31.7 BMI Classification Obese Obese Obese Vital Signs Temperature (97.8 F-99.1 F) 97.7 F L 96.2 F L 97.4 F L Temperature Source Temporal Temporal Temporal Pulse Rate (60-100) 63 64 73 Pulse Location Monitor Monitor Respiratory Rate (12-18) 18 18 18 Respiratory rate source Observation Observation Oxygen Delivery Method Room Air Blood Pressure (90/60-120/80) 145/77 H 156/72 H 150/90 H Blood Pressure Mean (mm Hg) 99 100 110 Source Monitor Monitor Monitor Position Semi-Fowlers Semi-Fowlers Semi-Fowlers Blood Pressure Location Left Arm Left Arm Left Arm History Since Last Visit- (Skip if this is Patient's initial visit) Have you changed medications since your No No No last visit? Any new allergies or adverse reactions No No No Had a fall/change in ADL's that may No No No increase risk of falls Signs or symptoms of abuse and/or No No No neglect since last visit Have you been in the hospital since your No No No last visit? Has dressing in place as prescribed Yes Yes Yes Has compression in place as prescribed Yes Yes Yes Has offloadiing in place as prescribed No No N/A Experienced any changes in pain level or No No No management Left Footwear Regular Shoe Right Footwear Regular Shoe Pain Scale: 0-10 Numeric Is Patient Pain Free? Yes Yes Yes WC - Nurse 1 - General Ulcer Measurement Start: 10/31/23 09:12 Freq: Status: Active Protocol: Activity Type Activity Date Activity User E-sign Co-sign Detail Recorded Client Recorded Date Recorded By Document 10/31/23 09:13 RB Desktop 10/31/23 09:15 RB Document 11/07/23 09:07 RB Desktop 11/07/23 09:09 RB Document 11/14/23 09:20 Laptop 11/14/23 09:22 10/31/23 11/07/23 11/14/23 09:13 09:07 09:20 Wound Center Nurse 1 1. LLE -Combined with other wound No No -Current Size (cm) - Length 5.7 5.5 5 -Current Size (cm) - Width 3.1 3 2.4 -Current Size (cm) - Depth 0.1 0.1 0.1 -Total Square Cm 17.67 16.5 12.0 -Photo Taken Yes -Epithelialization Small 1-33% -Tunneling No No -Undermining/Tunneling No No -Circular Undermining No No -Exudate Amt Large Medium Small -Exudate Type Serosanguineous Serosanguineous Serosanguineous -Wound Margin Distinct, Distinct, Outline Outline Attached Attached -Granulation Amt Medium (34-66%) Medium (34-66%) Large (67-100%) -Granulation Quality Kersey Red Red -Slough/Fibrin Yes Yes -Necrosis Amt Medium (34-66%) Small (1-33%) -Necrotic Tissue Type Adherent Slough Adherent Slough -Structure Exposed N/A N/A -Texture (Astrid-wound Skin Appearance) Assessed, Assessed Assessed Scarring -Moisture (Astrid-wound Skin Appearance) Assessed Assessed Assessed -Color (Astrid-wound Skin Appearance) Assessed Assessed Assessed -Temperature (Astrid-wound Skin No Abnormality No Abnormality Appearance) (Pt Warm) (Pt Warm) -Tenderness on Palpation (Astrid-wound No No Skin Appearance) -Ulcer Cleansing Wound Cleanser Wound Cleanser Rinsed/ Irrigated with Saline -Foul Odor after Cleansing No No No -Anesthetic Used 5% Lidocaine 5% Lidocaine 5% Lidocaine Gel Gel Gel Lower Limb Edema Present Yes Yes Left Calf (cm) 41 40 39 Left Ankle (cm) 24.5 23.2 24 - Nurse 2 - General Ulcer CM Notes Start: 10/31/23 09:12 Freq: Status: Active Protocol: Activity Type Activity Date Activity User E-sign Co-sign Detail Recorded Client Recorded Date Recorded By Document 10/31/23 09:23 [employer] Laptop 10/31/23 09:25 Document 11/07/23 09:14 Laptop 11/07/23 09:17 Document 11/14/23 09:27 Laptop 11/14/23 09:29 10/31/23 11/07/23 11/14/23 09:23 09:14 09:27 Wound Center Nurse 2 1. LLE -Time 09:15 09:28 -Correct Patient Yes Yes Yes -Correct Side, Site, Position Yes Yes Yes -Correct Procedure Yes Yes Yes -Procedure Performed Yes Yes Yes -Type of Procedure Debridement Debridement Debridement -Clinical Debridement Subcutaneous Subcutaneous Subcutaneous -Tissue Removed Subcutaneous Subcutaneous Subcutaneous -Post Debridement (cm) - Length 2.8 6.0 5.2 -Post Debridement (cm) - Width 5.5 3.0 2.5 -Post Debridement (cm) - Depth 0.1 0.1 0.1 -Total Square (Post) (cm) 15.40 18.00 13.00 -Area of Debridement (cm) - Length 2.8 6.0 5.2 -Area of Debridement (cm) - Width 5.5 3.0 2.5 -Total Square (Area) (cm) 15.40 18.00 13.00 -Tunneling No No No -Undermining/Tunneling No No No -Circular Undermining No No No -Wound/Ulcer Outcome Not Healed Not Healed Not Healed -Ulcer Cleansing Rinsed/ Rinsed/ Rinsed/ Irrigated with Irrigated with Irrigated with Saline Saline Saline -Foul Odor after Cleansing No No No -Bioengineered Tissue Yes Yes Yes -Type of Bioengineered Tissue Epifix Mesh Epifix Mesh Epifix Mesh -Expiration Date 05/28/28 05/28/28 05/28/28 -Product Lot Number [id number] -Percent Used 100 100 100 -Lot number of Saline Used [id number] -Bleeding Controlled with Pressure Pressure Pressure -Treatment Response Procedure Procedure Procedure Tolerated Well Tolerated Well Tolerated Well -Offloading No No No -Debridement - Subq, 1st 20sq cm No No No -Apply Skin Sub - 1st 25 sq cm - Legs 1 1 1 -Epifix Mesh (per sq cm) 11 11 11 Pain Scale: 0-10 Numeric Is Patient Pain Free? Yes Yes Yes - Nurse 3 - General Ulcer D/C NN Start: 10/31/23 09:12 Freq: Status: Active Protocol: Activity Type Activity Date Activity User E-sign Co-sign Detail Recorded Client Recorded Date Recorded By Document 10/31/23 09:39 RB Desktop 10/31/23 09:40 RB Document 11/07/23 09:24 KW Desktop 11/07/23 09:24 KW Edit Result 11/07/23 09:24 KW (1) Desktop 11/07/23 09:32 RB Document 11/14/23 09:34 JF Laptop 11/14/23 09:35 JF (1) 1. LLE - Other Dressing => hydrogel - Mepilex Border 2 => 1 10/31/23 11/07/23 11/14/23 09:39 09:24 09:34 Wound Care Center Nurse 3 1. LLE -Primary Dressing Applied Mepilex Border Mepilex Border -Other Dressing abd pad hydrogel -Primary Dressing Covered/Secured with Dry Gauze -Mepilex Border 1 1 Left -Multi-Layered Wrap Application Multi-Layer Comp - Left ($) -Tubular Bandage Double Layer Single Layer -Size of Tubigrip Used Size E Size E -Size E ($) 2 1 Treatment Response Procedure Tolerated Well Pain Scale: 0-10 Numeric Is Patient Pain Free? Yes Yes Yes WC - Visit Discharge Discharge Condition Stable Stable Stable Ambulatory Status Ambulatory Ambulatory Cane Transportation Private Auto Private Auto Medication Reconcilliation completed & No No Yes provided to patient/care provider Clinical Summary of Care Provided Yes Yes Yes Assessment/Plan Assessment/Plan (1) Venous insufficiency (chronic) (peripheral): CODE(S): I87.2 - Venous insufficiency (chronic) (peripheral) PLAN: Exam performed Neurovascular status intact, will consider arterial studies if there are any delays in healing Wound decreased in size. No infection. Today left lower extremity wound was excisionally debrided down to including level of subcutaneous tissue of all nonviable tissue using 3 mm dermal curette. Topical anesthesia was used. Pre and postdebridement measurements documented nursing notes. Patient tolerated procedure well. Topical anesthesia used. Hemostasis obtained with light compression. Wound was flushed with copious amounts normal sterile saline, swab culture taken No additional antibiotics needed at this time Today EpiFix graft was applied 4 x 4.5 cm meshed graft, 11 billing units to its entirety to the left leg wound. Entire graft used, no waste. This was stabilized with overlying Adaptic, 4 x 4's, DSD and 3M compression dressing. Patient will follow-up for nursing dressing change and next week for additional care. Significant wound improvement noted today. Patient to follow-up in 1 week (2) Non-pressure chronic ulcer of left ankle with fat layer exposed: CODE(S): L97.322 - Non-pressure chronic ulcer of left ankle with fat layerexposed 11/14/23 1038 <Electronically signed by Nick Forbes DPM> Cosigner Signature (if applicable): CC: ~ Signed [facility] Work Phone: [phone]) 620-808703-19-2024 Progress note Author Nick Forbes [facility] March 19th, 2024 9:34am Note Date/Time November 14, 2023 9:3 4am [facility] [address] [place] [address] Progress Note - Wound Care 11/14/23 0932 MR#: [id number] Acct: [id number] Name: ABDOUL ALICEA Rep #:[id number] : 1950 73 From: Nick TERRYM PCP: Dr. Katlyn Lantigua MD Status:REG RCR Location: History of Present Illness Date of Service: 11/14/23 History of Wound: 72-year-old male has had a wound since May 2023. Patient was chopping firewood and had a few piece of wood fall onto his left leg. Patient suffered a laceration was seen in the emergency department at that time which they flushed and cleaned the wound and closed it primarily after updating his tetanus status. Patient subsequently had his sutures removed and developed a full- thickness ulceration to his left medial leg. Patient had been performingself-care with daily dressing changes and noticed no healing, therefore, he presents today. Patient has no obvious medical problems and is not currently onany long-term medications. Patient does have bilateral lower extremity swelling. 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 Patient notes some pain to the wound site. Patient has no other complaints. Progress of Wound: Wound improving no issues today. Objective Data Objective Data Vital Signs: Vital Signs Temp Pulse Resp BP O2 Del Method 97.4 F L 73 18 150/90 H Room Air 11/14/23 09:20 11/14/23 09:20 11/14/23 09:20 11/14/23 09:20 11/14/23 09:20 Oxygen Delivery Method Room Air Weight: 106.141 kg Body Mass Index (BMI) 31.7 Physical Exam Narrative Patient has palpable 2 out of 4 DP PT pulses to right lower extremity. Left lower extremity PT is palpable 2 out of 4. Dorsalis pedis is biphasic On Doppler examination. Patient has +2 pitting edema to bilateral lower extremity perimalleolar region with positive hemosiderin deposits and superficial varicosities. Patient has intact light touch protective sensation as well as deep tendon reflexes Achilles. No obvious clonus. Full-thickness wound noted to the medial left ankle along the course of the great saphenous vein with a mixed fibrogranular base. No overt signs of infection such as erythema malodor or purulent drainage warmth. There is some pain to the wound and periwound area. Musculoskeletal muscular strength full to bilateral lower extremity compartments. No wounds forming deformities noted. No sign DVT. Const alert and oriented x3 Debridement Note Debridement Note Post-Debridement Measurements and Additional Note: Post-Debridement Measurements/Treatment - Nurse 1 - General Ulcer Assessment Start: 10/31/23 09:12 Freq: Status: Active Protocol: WC.LOWEXT Activity Type Activity Date Activity User E-sign Co-sign Detail Recorded Client Recorded Date Recorded By Document 10/31/23 09:13 RB Desktop 10/31/23 09:15 RB Document 11/07/23 09:07 RB Desktop 11/07/23 09:09 RB Document 11/14/23 09:20 JF Laptop 11/14/23 09:22 JF 10/31/23 11/07/23 11/14/23 09:13 09:07 09:20 - Today's Visit Information Type of service Follow-up Visit Follow-up Visit Follow-up Visit (Physician/DATABASE REPORT WRITER (Physician/DATABASE REPORT WRITER (Physician/DATABASE REPORT WRITER ) ) ) Arrival Mode Ambulatory Ambulatory Ambulatory Transfer Assistance None None Patient Identification Verified (Name & Yes Yes Yes ) Patient Requires Transmission-Based No No Precautions Height and Weight Body Mass Index (BMI) 31.7 31.7 31.7 BMI Classification Obese Obese Obese Vital Signs Temperature (97.8 F-99.1 F) 97.7 F L 96.2 F L 97.4 F L Temperature Source Temporal Temporal Temporal Pulse Rate (60-100) 63 64 73 Pulse Location Monitor Monitor Respiratory Rate (12-18) 18 18 18 Respiratory rate source Observation Observation Oxygen Delivery Method Room Air Blood Pressure (90/60-120/80) 145/77 H 156/72 H 150/90 H Blood Pressure Mean (mm Hg) 99 100 110 Source Monitor Monitor Monitor Position Semi-Fowlers Semi-Fowlers Semi-Fowlers Blood Pressure Location Left Arm Left Arm Left Arm History Since Last Visit- (Skip if this is Patient's initial visit) Have you changed medications since your No No No last visit? Any new allergies or adverse reactions No No No Had a fall/change in ADL's that may No No No increase risk of falls Signs or symptoms of abuse and/or No No No neglect since last visit Have you been in the hospital since your No No No last visit? Has dressing in place as prescribed Yes Yes Yes Has compression in place as prescribed Yes Yes Yes Has offloadiing in place as prescribed No No N/A Experienced any changes in pain level or No No No management Left Footwear Regular Shoe Right Footwear Regular Shoe Pain Scale: 0-10 Numeric Is Patient Pain Free? Yes Yes Yes WC - Nurse 1 - General Ulcer Measurement Start: 10/31/23 09:12 Freq: Status: Active Protocol: Activity Type Activity Date Activity User E-sign Co-sign Detail Recorded Client Recorded Date Recorded By Document 10/31/23 09:13 RB Desktop 10/31/23 09:15 RB Document 11/07/23 09:07 RB Desktop 11/07/23 09:09 RB Document 11/14/23 09:20 JF Laptop 11/14/23 09:22 10/31/23 11/07/23 11/14/23 09:13 09:07 09:20 Wound Center Nurse 1 1. LLE -Combined with other wound No No -Current Size (cm) - Length 5.7 5.5 5 -Current Size (cm) - Width 3.1 3 2.4 -Current Size (cm) - Depth 0.1 0.1 0.1 -Total Square Cm 17.67 16.5 12.0 -Photo Taken Yes -Epithelialization Small 1-33% -Tunneling No No -Undermining/Tunneling No No -Circular Undermining No No -Exudate Amt Large Medium Small -Exudate Type Serosanguineous Serosanguineous Serosanguineous -Wound Margin Distinct, Distinct, Outline Outline Attached Attached -Granulation Amt Medium (34-66%) Medium (34-66%) Large (67-100%) -Granulation Quality Kersey Red Red -Slough/Fibrin Yes Yes -Necrosis Amt Medium (34-66%) Small (1-33%) -Necrotic Tissue Type Adherent Slough Adherent Slough -Structure Exposed N/A N/A -Texture (Astrid-wound Skin Appearance) Assessed, Assessed Assessed Scarring -Moisture (Astrid-wound Skin Appearance) Assessed Assessed Assessed -Color (Astrid-wound Skin Appearance) Assessed Assessed Assessed -Temperature (Astrid-wound Skin No Abnormality No Abnormality Appearance) (Pt Warm) (Pt Warm) -Tenderness on Palpation (Astrid-wound No No Skin Appearance) -Ulcer Cleansing Wound Cleanser Wound Cleanser Rinsed/ Irrigated with Saline -Foul Odor after Cleansing No No No -Anesthetic Used 5% Lidocaine 5% Lidocaine 5% Lidocaine Gel Gel Gel Lower Limb Edema Present Yes Yes Left Calf (cm) 41 40 39 Left Ankle (cm) 24.5 23.2 24 WC - Nurse 2 - General Ulcer CM Notes Start: 10/31/23 09:12 Freq: Status: Active Protocol: Activity Type Activity Date Activity User E-sign Co-sign Detail Recorded Client Recorded Date Recorded By Document 10/31/23 09:23 [employer] Laptop 10/31/23 09:25 Document 11/07/23 09:14 JF Laptop 11/07/23 09:17 JF Document 11/14/23 09:27 Laptop 11/14/23 09:29 10/31/23 11/07/23 11/14/23 09:23 09:14 09:27 Wound Center Nurse 2 1. LLE -Time 09:15 09:28 -Correct Patient Yes Yes Yes -Correct Side, Site, Position Yes Yes Yes -Correct Procedure Yes Yes Yes -Procedure Performed Yes Yes Yes -Type of Procedure Debridement Debridement Debridement -Clinical Debridement Subcutaneous Subcutaneous Subcutaneous -Tissue Removed Subcutaneous Subcutaneous Subcutaneous -Post Debridement (cm) - Length 2.8 6.0 5.2 -Post Debridement (cm) - Width 5.5 3.0 2.5 -Post Debridement (cm) - Depth 0.1 0.1 0.1 -Total Square (Post) (cm) 15.40 18.00 13.00 -Area of Debridement (cm) - Length 2.8 6.0 5.2 -Area of Debridement (cm) - Width 5.5 3.0 2.5 -Total Square (Area) (cm) 15.40 18.00 13.00 -Tunneling No No No -Undermining/Tunneling No No No -Circular Undermining No No No -Wound/Ulcer Outcome Not Healed Not Healed Not Healed -Ulcer Cleansing Rinsed/ Rinsed/ Rinsed/ Irrigated with Irrigated with Irrigated with Saline Saline Saline -Foul Odor after Cleansing No No No -Bioengineered Tissue Yes Yes Yes -Type of Bioengineered Tissue Epifix Mesh Epifix Mesh Epifix Mesh -Expiration Date 05/28/28 05/28/28 05/28/28 -Product Lot Number [id number] -Percent Used 100 100 100 -Lot number of Saline Used [id number] -Bleeding Controlled with Pressure Pressure Pressure -Treatment Response Procedure Procedure Procedure Tolerated Well Tolerated Well Tolerated Well -Offloading No No No -Debridement - Subq, 1st 20sq cm No No No -Apply Skin Sub - 1st 25 sq cm - Legs 1 1 1 -Epifix Mesh (per sq cm) 11 11 11 Pain Scale: 0-10 Numeric Is Patient Pain Free? Yes Yes Yes - Nurse 3 - General Ulcer D/C NN Start: 10/31/23 09:12 Freq: Status: Active Protocol: Activity Type Activity Date Activity User E-sign Co-sign Detail Recorded Client Recorded Date Recorded By Document 10/31/23 09:39 RB Desktop 10/31/23 09:40 RB Document 11/07/23 09:24 KW Desktop 11/07/23 09:24 KW Edit Result 11/07/23 09:24 KW (1) Desktop 11/07/23 09:32 RB (1) 1. LLE - Other Dressing => hydrogel - Mepilex Border 2 => 1 10/31/23 11/07/23 09:39 09:24 Wound Care Center Nurse 3 1. LLE -Primary Dressing Applied Mepilex Border -Other Dressing abd pad hydrogel -Mepilex Border 1 Left -Multi-Layered Wrap Application Multi-Layer Comp - Left ($) -Tubular Bandage Double Layer -Size of Tubigrip Used Size E -Size E ($) 2 Treatment Response Procedure Tolerated Well Pain Scale: 0-10 Numeric Is Patient Pain Free? Yes Yes - Visit Discharge Discharge Condition Stable Stable Ambulatory Status Ambulatory Ambulatory Transportation Private Auto Private Auto Medication Reconcilliation completed & No No provided to patient/care provider Clinical Summary of Care Provided Yes Yes Assessment/Plan Assessment/Plan (1) Venous insufficiency (chronic) (peripheral): CODE(S): I87.2 - Venous insufficiency (chronic) (peripheral) PLAN: Exam performed Neurovascular status intact, will consider arterial studies if there are any delays in healing Wound decreased in size. No infection. Today left lower extremity wound was excisionally debrided down to including level of subcutaneous tissue of all nonviable tissue using 3 mm dermal curette. Topical anesthesia was used. Pre and postdebridement measurements documented nursing notes. Patient tolerated procedure well. Topical anesthesia used. Hemostasis obtained with light compression. Wound was flushed with copious amounts normal sterile saline, swab culture taken No additional antibiotics needed at this time Today EpiFix graft was applied 4 x 4.5 cm meshed graft, 11 billing units to its entirety to the left leg wound. Entire graft used, no waste. This was stabilized with overlying Adaptic, 4 x 4's, DSD and 3M compression dressing. Patient will follow-up for nursing dressing change and next week for additional care. Significant wound improvement noted today. Patient to follow-up in 1 week (2) Non-pressure chronic ulcer of left ankle with fat layer exposed: CODE(S): L97.322 - Non-pressure chronic ulcer of left ankle with fat layerexposed 11/14/23 0934 <Electronically signed by Nick Forbes DPM> Cosigner Signature (if applicable): CC: ~ Signed [facility] Work Phone: 1(469) 544-716303-12-2024 Progress note Author Nick Forbes [facility] November 07, 2023 9:28am Note Date/Time November 07, 2023 9:2 8am [facility] [address] [place] [id number] Progress Note - Wound Care 11/07/23 0928 MR#: [id number] Acct: [id number] Name: ABDOUL ALICEA Rep #:[id number] : 1950 73 From: Nick Forbes DPM PCP: Dr. Katlyn Lantigua MD Status:REG RCR Location: History of Present Illness Date of Service: 11/07/23 History of Wound: 72-year-old male has had a wound since May 2023. Patient was chopping firewood and had a few piece of wood fall onto his left leg. Patient suffered a laceration was seen in the emergency department at that time which they flushed and cleaned the wound and closed it primarily after updating his tetanus status. Patient subsequently had his sutures removed and developed a full- thickness ulceration to his left medial leg. Patient had been performingself-care with daily dressing changes and noticed no healing, therefore, he presents today. Patient has no obvious medical problems and is not currently onany long-term medications. Patient does have bilateral lower extremity swelling. 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 Patient notes some pain to the wound site. Patient has no other complaints. Progress of Wound: Wound improving no issues today. Objective Data Objective Data Vital Signs: Vital Signs Temp Pulse Resp BP 96.2 F L 64 18 156/72 H 11/07/23 09:07 11/07/23 09:07 11/07/23 09:07 11/07/23 09:07 Weight: 106.141 kg Body Mass Index (BMI) 31.7 Physical Exam Narrative Patient has palpable 2 out of 4 DP PT pulses to right lower extremity. Left lower extremity PT is palpable 2 out of 4. Dorsalis pedis is biphasic On Doppler examination. Patient has +2 pitting edema to bilateral lower extremity perimalleolar region with positive hemosiderin deposits and superficial varicosities. Patient has intact light touch protective sensation as well as deep tendon reflexes Achilles. No obvious clonus. Full-thickness wound noted to the medial left ankle along the course of the great saphenous vein with a mixed fibrogranular base. No overt signs of infection such as erythema malodor or purulent drainage warmth. There is some pain to the wound and periwound area. Musculoskeletal muscular strength full to bilateral lower extremity compartments. No wounds forming deformities noted. No sign DVT. Const alert and oriented x3 Debridement Note Debridement Note Post-Debridement Measurements and Additional Note: Post-Debridement Measurements/Treatment - Nurse 1 - General Ulcer Assessment Start: 10/31/23 09:12 Freq: Status: Active Protocol: MIKAELA Activity Type Activity Date Activity User E-sign Co-sign Detail Recorded Client Recorded Date Recorded By Document 10/31/23 09:13 RB Desktop 10/31/23 09:15 RB Document 11/07/23 09:07 RB Desktop 11/07/23 09:09 RB 10/31/23 11/07/23 09:13 09:07 - Today's Visit Information Type of service Follow-up Visit Follow-up Visit (Physician/DATABASE REPORT WRITER (Physician/DATABASE REPORT WRITER ) ) Arrival Mode Ambulatory Ambulatory Transfer Assistance None None Patient Identification Verified (Name & Yes Yes ) Patient Requires Transmission-Based No No Precautions Height and Weight Body Mass Index (BMI) 31.7 31.7 BMI Classification Obese Obese Vital Signs Temperature (97.8 F-99.1 F) 97.7 F L 96.2 F L Temperature Source Temporal Temporal Pulse Rate (60-100) 63 64 Pulse Location Monitor Respiratory Rate (12-18) 18 18 Respiratory rate source Observation Blood Pressure (90/60-120/80) 145/77 H 156/72 H Blood Pressure Mean (mm Hg) 99 100 Source Monitor Monitor Position Semi-Fowlers Semi-Fowlers Blood Pressure Location Left Arm Left Arm History Since Last Visit- (Skip if this is Patient's initial visit) Have you changed medications since your No No last visit? Any new allergies or adverse reactions No No Had a fall/change in ADL's that may No No increase risk of falls Signs or symptoms of abuse and/or No No neglect since last visit Have you been in the hospital since your No No last visit? Has dressing in place as prescribed Yes Yes Has compression in place as prescribed Yes Yes Has offloadiing in place as prescribed No No Experienced any changes in pain level or No No management Pain Scale: 0-10 Numeric Is Patient Pain Free? Yes Yes WC - Nurse 1 - General Ulcer Measurement Start: 10/31/23 09:12 Freq: Status: Active Protocol: Activity Type Activity Date Activity User E-sign Co-sign Detail Recorded Client Recorded Date Recorded By Document 10/31/23 09:13 RB [employer] 10/31/23 09:15 RB Document 11/07/23 09:07 RB Desktop 11/07/23 09:09 RB 10/31/23 11/07/23 09:13 09:07 Wound Center Nurse 1 1. LLE -Combined with other wound No No -Current Size (cm) - Length 5.7 5.5 -Current Size (cm) - Width 3.1 3 -Current Size (cm) - Depth 0.1 0.1 -Total Square Cm 17.67 16.5 -Photo Taken Yes -Tunneling No No -Undermining/Tunneling No No -Circular Undermining No No -Exudate Amt Large Medium -Exudate Type Serosanguineous Serosanguineous -Wound Margin Distinct, Distinct, Outline Outline Attached Attached -Granulation Amt Medium (34-66%) Medium (34-66%) -Granulation Quality Kersey Red -Slough/Fibrin Yes Yes -Necrosis Amt Medium (34-66%) Small (1-33%) -Necrotic Tissue Type Adherent Slough Adherent Slough -Structure Exposed N/A N/A -Texture (Astrid-wound Skin Appearance) Assessed, Assessed Scarring -Moisture (Astrid-wound Skin Appearance) Assessed Assessed -Color (Astrid-wound Skin Appearance) Assessed Assessed -Temperature (Astrid-wound Skin No Abnormality No Abnormality Appearance) (Pt Warm) (Pt Warm) -Tenderness on Palpation (Astrid-wound No No Skin Appearance) -Ulcer Cleansing Wound Cleanser Wound Cleanser -Foul Odor after Cleansing No No -Anesthetic Used 5% Lidocaine 5% Lidocaine Gel Gel Lower Limb Edema Present Yes Yes Left Calf (cm) 41 40 Left Ankle (cm) 24.5 23.2 WC - Nurse 2 - General Ulcer CM Notes Start: 10/31/23 09:12 Freq: Status: Active Protocol: Activity Type Activity Date Activity User E-sign Co-sign Detail Recorded Client Recorded Date Recorded By Document 10/31/23 09:23 [employer] Laptop 10/31/23 09:25 [facility] [employer] Document 11/07/23 09:14 [employer] Laptop 11/07/23 09:17 10/31/23 11/07/23 09:23 09:14 Wound Center Nurse 2 1. LLE -Time 09:15 -Correct Patient Yes Yes -Correct Side, Site, Position Yes Yes -Correct Procedure Yes Yes -Procedure Performed Yes Yes -Type of Procedure Debridement Debridement -Clinical Debridement Subcutaneous Subcutaneous -Tissue Removed Subcutaneous Subcutaneous -Post Debridement (cm) - Length 2.8 6.0 -Post Debridement (cm) - Width 5.5 3.0 -Post Debridement (cm) - Depth 0.1 0.1 -Total Square (Post) (cm) 15.40 18.00 -Area of Debridement (cm) - Length 2.8 6.0 -Area of Debridement (cm) - Width 5.5 3.0 -Total Square (Area) (cm) 15.40 18.00 -Tunneling No No -Undermining/Tunneling No No -Circular Undermining No No -Wound/Ulcer Outcome Not Healed Not Healed -Ulcer Cleansing Rinsed/ Rinsed/ Irrigated with Irrigated with Saline Saline -Foul Odor after Cleansing No No -Bioengineered Tissue Yes Yes -Type of Bioengineered Tissue Epifix Mesh Epifix Mesh -Expiration Date 05/28/28 05/28/28 -Product Lot Number [id number] -Percent Used 100 100 -Lot number of Saline Used [id number] -Bleeding Controlled with Pressure Pressure -Treatment Response Procedure Procedure Tolerated Well Tolerated Well -Offloading No No -Debridement - Subq, 1st 20sq cm No No -Apply Skin Sub - 1st 25 sq cm - Legs 1 1 -Epifix Mesh (per sq cm) 11 11 Pain Scale: 0-10 Numeric Is Patient Pain Free? Yes Yes - Nurse 3 - General Ulcer D/C NN Start: 10/31/23 09:12 Freq: Status: Active Protocol: Activity Type Activity Date Activity User E-sign Co-sign Detail Recorded Client Recorded Date Recorded By Document 10/31/23 09:39 RB [employer] 10/31/23 09:40 RB Document 11/07/23 09:24 KW Desktop 11/07/23 09:24 KW 10/31/23 11/07/23 09:39 09:24 Wound Care Center Nurse 3 1. LLE -Primary Dressing Applied Mepilex Border -Other Dressing abd pad -Mepilex Border 2 Left -Multi-Layered Wrap Application Multi-Layer Comp - Left ($) -Tubular Bandage Double Layer -Size of Tubigrip Used Size E -Size E ($) 2 Treatment Response Procedure Tolerated Well Pain Scale: 0-10 Numeric Is Patient Pain Free? Yes Yes - Visit Discharge Discharge Condition Stable Stable Ambulatory Status Ambulatory Ambulatory Transportation Private Auto Private Auto Medication Reconcilliation completed & No No provided to patient/care provider Clinical Summary of Care Provided Yes Yes Assessment/Plan Assessment/Plan (1) Venous insufficiency (chronic) (peripheral): CODE(S): I87.2 - Venous insufficiency (chronic) (peripheral) PLAN: Exam performed Neurovascular status intact, will consider arterial studies if there are any delays in healing Wound greater than 25% improved over 1 week of treatment Excisional debridement left lower leg wound performed with [employer] [place] debrider Today left lower extremity wound was excisionally debrided down to including level of subcutaneous tissue of all nonviable tissue using [employer] [place] debrider. Topical anesthesia was used. Pre and postdebridement measurements documented nursing notes. Patient tolerated procedure well. Topical anesthesia used. Hemostasis obtained with light compression. Wound was flushed with copious amounts normal sterile saline, swab culture taken No additional antibiotics needed at this time Today EpiFix graft was applied 4 x 4.5 cm meshed graft, 11 billing units to its entirety to the left leg wound. Entire graft used, no waste. This was stabilized with overlying Adaptic, 4 x 4's, DSD and 3M compression dressing. Patient will follow-up for nursing dressing change and next week for additional care. Significant wound improvement noted today. Patient to follow-up in 1 week (2) Non-pressure chronic ulcer of left ankle with fat layer exposed: CODE(S): L97.322 - Non-pressure chronic ulcer of left ankle with fat layerexposed 11/07/23927 <Electronically signed by Nick Forbes DPM> Cosigner Signature (if applicable): CC: ~ Signed [facility] Work Phone: 1(290) 176-817803-05-2024 Progress note Author Nick Forbes [facility] 2023 9:29am Note Date/Time 2023 9:29 am [facility] [address] [place] [id number] Progress Note - Wound Care 10/31/23927 MR#: [id number] Acct: [id number] Name: MANIABDOUL Allred Rep #:[id number] : 1950 72 From: Nick Forbes DPM PCP: Dr. Katlyn Lantigua MD Status:REG RCR Location: History of Present Illness Date of Service: 10/31/23 History of Wound: 72-year-old male has had a wound since May 2023. Patient was chopping firewood and had a few piece of wood fall onto his left leg. Patient suffered a laceration was seen in the emergency department at that time which they flushed and cleaned the wound and closed it primarily after updating his tetanus status. Patient subsequently had his sutures removed and developed a full- thickness ulceration to his left medial leg. Patient had been performingself-care with daily dressing changes and noticed no healing, therefore, he presents today. Patient has no obvious medical problems and is not currently onany long-term medications. Patient does have bilateral lower extremity swelling. 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 Patient notes some pain to the wound site. Patient has no other complaints. Progress of Wound: Wound improving no issues today. Objective Data Objective Data Vital Signs: Vital Signs Temp Pulse Resp BP 97.7 F L 63 18 145/77 H 10/31/23 09:13 10/31/23 09:13 10/31/23 09:13 10/31/23 09:13 Weight: 106.141 kg Body Mass Index (BMI) 31.7 Physical Exam Narrative Patient has palpable 2 out of 4 DP PT pulses to right lower extremity. Left lower extremity PT is palpable 2 out of 4. Dorsalis pedis is biphasic On Doppler examination. Patient has +2 pitting edema to bilateral lower extremity perimalleolar region with positive hemosiderin deposits and superficial varicosities. Patient has intact light touch protective sensation as well as deep tendon reflexes Achilles. No obvious clonus. Full-thickness wound noted to the medial left ankle along the course of the great saphenous vein with a mixed fibrogranular base. No overt signs of infection such as erythema malodor or purulent drainage warmth. There is some pain to the wound and periwound area. Musculoskeletal muscular strength full to bilateral lower extremity compartments. No wounds forming deformities noted. No sign DVT. Const alert and oriented x3 Debridement Note Debridement Note Post-Debridement Measurements and Additional Note: Post-Debridement Measurements/Treatment - Nurse 1 - General Ulcer Assessment Start: 10/31/23 09:12 Freq: Status: Active Protocol: .LOWEXT Activity Type Activity Date Activity User E-sign Co-sign Detail Recorded Client Recorded Date Recorded By Document 10/31/23 09:13 Desktop 10/31/23 09:15 RB 10/31/23 09:13 - Today's Visit Information Type of service Follow-up Visit (Physician/DATABASE REPORT WRITER ) Arrival Mode Ambulatory Transfer Assistance None Patient Identification Verified (Name & Yes ) Patient Requires Transmission-Based No Precautions Height and Weight Body Mass Index (BMI) 31.7 BMI Classification Obese Vital Signs Temperature (97.8 F-99.1 F) 97.7 F L Temperature Source Temporal Pulse Rate (60-100) 63 Respiratory Rate (12-18) 18 Blood Pressure (90/60-120/80) 145/77 H Blood Pressure Mean (mm Hg) 99 Source Monitor Position Semi-Fowlers Blood Pressure Location Left Arm History Since Last Visit- (Skip if this is Patient's initial visit) Have you changed medications since your No last visit? Any new allergies or adverse reactions No Had a fall/change in ADL's that may No increase risk of falls Signs or symptoms of abuse and/or No neglect since last visit Have you been in the hospital since your No last visit? Has dressing in place as prescribed Yes Has compression in place as prescribed Yes Has offloadiing in place as prescribed No Experienced any changes in pain level or No management Pain Scale: 0-10 Numeric Is Patient Pain Free? Yes KIRSTY - Nurse 1 - General Ulcer Measurement Start: 10/31/23 09:12 Freq: Status: Active Protocol: Activity Type Activity Date Activity User E-sign Co-sign Detail Recorded Client Recorded Date Recorded By Document 10/31/23 09:13 RB Desktop 10/31/23 09:15 RB 10/31/23 09:13 Wound Center Nurse 1 1. LLE -Combined with other wound No -Current Size (cm) - Length 5.7 -Current Size (cm) - Width 3.1 -Current Size (cm) - Depth 0.1 -Total Square Cm 17.67 -Photo Taken Yes -Tunneling No -Undermining/Tunneling No -Circular Undermining No -Exudate Amt Large -Exudate Type Serosanguineous -Wound Margin Distinct, Outline Attached -Granulation Amt Medium (34-66%) -Granulation Quality Kersey -Slough/Fibrin Yes -Necrosis Amt Medium (34-66%) -Necrotic Tissue Type Adherent Slough -Structure Exposed N/A -Texture (Astrid-wound Skin Appearance) Assessed, Scarring -Moisture (Astrid-wound Skin Appearance) Assessed -Color (Astrid-wound Skin Appearance) Assessed -Temperature (Astrid-wound Skin No Abnormality Appearance) (Pt Warm) -Tenderness on Palpation (Astrid-wound No Skin Appearance) -Ulcer Cleansing Wound Cleanser -Foul Odor after Cleansing No -Anesthetic Used 5% Lidocaine Gel Lower Limb Edema Present Yes Left Calf (cm) 41 Left Ankle (cm) 24.5 WC - Nurse 2 - General Ulcer CM Notes Start: 10/31/23 09:12 Freq: Status: Active Protocol: Activity Type Activity Date Activity User E-sign Co-sign Detail Recorded Client Recorded Date Recorded By Document 10/31/23 09:23 Laptop 10/31/23 09:25 10/31/23 09:23 Wound Center Nurse 2 1. LLE -Correct Patient Yes -Correct Side, Site, Position Yes -Correct Procedure Yes -Procedure Performed Yes -Type of Procedure Debridement -Clinical Debridement Subcutaneous -Tissue Removed Subcutaneous -Post Debridement (cm) - Length 2.8 -Post Debridement (cm) - Width 5.5 -Post Debridement (cm) - Depth 0.1 -Total Square (Post) (cm) 15.40 -Area of Debridement (cm) - Length 2.8 -Area of Debridement (cm) - Width 5.5 -Total Square (Area) (cm) 15.40 -Tunneling No -Undermining/Tunneling No -Circular Undermining No -Wound/Ulcer Outcome Not Healed -Ulcer Cleansing Rinsed/ Irrigated with Saline -Foul Odor after Cleansing No -Bioengineered Tissue Yes -Type of Bioengineered Tissue Epifix Mesh -Expiration Date 05/28/28 -Product Lot Number [id number] -Percent Used 100 -Lot number of Saline Used [id number] -Bleeding Controlled with Pressure -Treatment Response Procedure Tolerated Well -Offloading No -Debridement - Subq, 1st 20sq cm No -Apply Skin Sub - 1st 25 sq cm - Legs 1 -Epifix Mesh (per sq cm) 11 Pain Scale: 0-10 Numeric Is Patient Pain Free? Yes Assessment/Plan Assessment/Plan (1) Venous insufficiency (chronic) (peripheral): CODE(S): I87.2 - Venous insufficiency (chronic) (peripheral) PLAN: Exam performed Neurovascular status intact, will consider arterial studies if there are any delays in healing Wound greater than 25% improved over 1 week of treatment Excisional debridement left lower leg wound performed with RFMicron debrider Today left lower extremity wound was excisionally debrided down to including level of subcutaneous tissue of all nonviable tissue using RFMicron debrider. Topical anesthesia was used. Pre and postdebridement measurements documented nursing notes. Patient tolerated procedure well. Topical anesthesia used. Hemostasis obtained with light compression. Wound was flushed with copious amounts normal sterile saline, swab culture taken No additional antibiotics needed at this time Today EpiFix graft was applied 4 x 4.5 cm meshed graft, 11 billing units to its entirety to the left leg wound. Entire graft used, no waste. This was stabilized with overlying Adaptic, 4 x 4's, DSD and 3M compression dressing. Patient will follow-up for nursing dressing change and next week for additional care. Significant wound improvement noted today. Patient to follow-up in 1 week (2) Non-pressure chronic ulcer of left ankle with fat layer exposed: CODE(S): L97.322 - Non-pressure chronic ulcer of left ankle with fat layerexposed 10/31/23 09 <Electronically signed by Nick Forbes DPM> Cosigner Signature (if applicable): CC: ~ Signed [facility] Work Phone: [phone]) 544-558002-27-2024 Progress note Author Nick Forbes [facility] October 24, 2023 9:18am Note Date/Time October 24, 2023 9:19am [facility] [address] [place] [id number] Progress Note - Wound Care 10/24/23 0917 MR#: [id number] Acct: [id number] Name: ABDOUL ALICEA Brigida Rep #:[id number] : 1950 72 From: Nick Forbes DPM PCP: Dr. Katlyn Lantigua MD Status:[facility] Location: History of Present Illness Date of Service: 10/24/23 History of Wound: 72-year-old male has had a wound since May 2023. Patient was chopping firewood and had a few piece of wood fall onto his left leg. Patient suffered a laceration was seen in the emergency department at that time which they flushed and cleaned the wound and closed it primarily after updating his tetanus status. Patient subsequently had his sutures removed and developed a full- thickness ulceration to his left medial leg. Patient had been performingself-care with daily dressing changes and noticed no healing, therefore, he presents today. Patient has no obvious medical problems and is not currently onany long-term medications. Patient does have bilateral lower extremity swelling. 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 Patient notes some pain to the wound site. Patient has no other complaints. Objective Data Objective Data Vital Signs: Vital Signs Temp Pulse Resp BP O2 Del Method 97.5 F L 75 18 160/97 H Room Air 10/24/23 08:53 10/24/23 08:53 10/24/23 08:53 10/24/23 08:53 10/24/23 08:53 Oxygen Delivery Method Room Air Weight: 106.141 kg Body Mass Index (BMI) 31.7 Lab / Micro Data Micro: Microbiology 10/03/23 09:43 Wound - Leg, Left Gram Stain - Final 10/03/23 09:43 Wound - Leg, Left Wound Culture - Final Staphylococcus aureus 10/03/23 09:43 Wound - Leg, Left Anaerobic Culture - Final No anaerobic bacteria isolated. Physical Exam Narrative Patient has palpable 2 out of 4 DP PT pulses to right lower extremity. Left lower extremity PT is palpable 2 out of 4. Dorsalis pedis is biphasic On Doppler examination. Patient has +2 pitting edema to bilateral lower extremity perimalleolar region with positive hemosiderin deposits and superficial varicosities. Patient has intact light touch protective sensation as well as deep tendon reflexes Achilles. No obvious clonus. Full-thickness wound noted to the medial left ankle along the course of the great saphenous vein with a mixed fibrogranular base. No overt signs of infection such as erythema malodor or purulent drainage warmth. There is some pain to the wound and periwound area. Musculoskeletal muscular strength full to bilateral lower extremity compartments. No wounds forming deformities noted. No sign DVT. Const alert and oriented x3 Debridement Note Debridement Note Post-Debridement Measurements and Additional Note: Post-Debridement Measurements/Treatment - Nurse 1 - General Ulcer Assessment Start: 10/03/23 08:28 Freq: Status: Active Protocol: [email or web address] Activity Type Activity Date Activity User E-sign Co-sign Detail Recorded Client Recorded Date Recorded By Document 10/03/23 09:02 RB Desktop 10/03/23 09:17 RB Document 10/06/23 12:24 RB [id number] 10/06/23 12:26 RB Document 10/10/23 09:10 BMF Desktop 10/10/23 09:18 BMF Document 10/13/23 11:08 RB [id number] 10/13/23 11:13 RB Document 10/17/23 09:19 RB Desktop 10/17/23 09:21 RB Document 10/20/23 12:35 RB [id number] 10/20/23 12:41 RB Document 10/24/23 08:53 KW Desktop 10/24/23 08:58 KW 10/03/23 10/06/23 10/10/23 09:02 12:24 09:10 WC - Today's Visit Information Type of service Initial Visit Nurse-only Follow-up Visit Visit (Physician/DATABASE REPORT WRITER ) Arrival Mode Ambulatory Ambulatory Ambulatory Transfer Assistance None None None Patient Identification Verified (Name & Yes Yes Yes ) Patient Requires Transmission-Based No No No Precautions Height and Weight Height 6 ft Weight 106.141 kg Weight in Pounds 234.0 lbs Body Mass Index (BMI) 31.7 31.7 31.7 BMI Classification Obese Obese Obese BSA - Morris 2.28 Vital Signs Temperature (97.8 F-99.1 F) 97 F L 96.6 F L Temperature Source Temporal Temporal Pulse Rate (60-100) 67 70 83 Pulse Location Monitor Monitor Monitor Respiratory Rate (12-18) 18 18 16 Respiratory rate source Observation Observation Observation Oxygen Delivery Method Room Air Blood Pressure (90/60-120/80) 168/94 H 145/82 H 154/92 H Blood Pressure Mean (mm Hg) 118 103 112 Source Monitor Monitor Monitor Position Semi-Fowlers Semi-Fowlers Sitting Blood Pressure Location Left Arm Left Arm Right Arm History Since Last Visit- (Skip if this is Patient's initial visit) Have you changed medications since your No No last visit? Any new allergies or adverse reactions No No Had a fall/change in ADL's that may No No increase risk of falls Signs or symptoms of abuse and/or No No neglect since last visit Have you been in the hospital since your No No last visit? Has dressing in place as prescribed Yes Yes Has compression in place as prescribed Yes Yes Has offloadiing in place as prescribed No N/A Experienced any changes in pain level or No No management Left Footwear Regular Shoe Right Footwear Regular Shoe Pain Scale: 0-10 Numeric Is Patient Pain Free? Yes Yes Yes Lower Extremity Assessment/ Foot Assessment/ Toe Nail Assessment Right -Posterior Tibial Palpable Yes -Posterior Tibial Doppler Multiphasic -Dorsalis Pedis Palpable Yes -Dorsalis Pedis Doppler Multiphasic -Hair Growth on Legs Yes -Hair Growth on Toes No -Temperature of Extremity Cool -Capillary Refill Greater than 3 Seconds -Dependent Rubor No -Blanched when Elevated No -Lipodermatosclerosis No -Other Deformity No -Prior Foot Ulcer No -Charcot Joint No -Prior Amputation No -Thick No -Discolored No -Deformed No -Improper Length & Hygeine Yes Left -Posterior Tibial Palpable No -Posterior Tibial Doppler Monophasic -Dorsalis Pedis Palpable No -Dorsalis Pedis Doppler Monophasic -Extremity Color Hemosiderin -Hair Growth on Legs Yes -Hair Growth on Toes No -Temperature of Extremity Cool -Capillary Refill Greater than 3 Seconds -Dependent Rubor No -Blanched when Elevated No -Lipodermatosclerosis No -Other Deformity No -Prior Foot Ulcer No -Charcot Joint No -Prior Amputation No -Thick No -Discolored No -Deformed No -Improper Length & Hygeine Yes Neuropathy Assessment Feet - Top Side and Bottom <Entered> (a) Communication Assessment Preferred language [place] Tongue Carrier Required No Able to Read Yes Able to Write Yes Communication Tools None Caregiver Communication Skills No Impairment Impairment Right Hearing Abillity Normal Left Hearing Abillity Normal Visual Assistive Devices Glasses Teaching Assessment Preferences Verbal,Written, Demonstration Barriers to Learning None Readiness To Learn Excellent Willingness to Engage in Self Management High Activies Readiness to Engage in Self Management High Activities Anxiety Level Calm Cooperation Cooperative Perception Coherent Interest in Health Problem Asks Questions Education Importance Acknowledges Need Does Patient Smoke tobacco or other No substances Smoking Status Former smoker Is Patient Diabetic No Functional Assessment Recent Decline in Ability to Perform Denies Any Declines Assistive Device With Patient No Culture/Presybeterian/Managed Services Consultant Cultural/Presybeterian Needs that may affect No Treatment Plan Would you allow our hospital recruiter coordinator to No meet you for the purpose of spiritual/ emotional support? Managed Services Consultant to contact place of sikhism No Teaching: Wound Center *Welcome to the Wound Center -Person Taught Patient -Teaching Method Discussion, Demonstration -Response to teaching Verbalize understanding 10/13/23 10/17/23 10/20/23 11:08 09:19 12:35 WC - Today's Visit Information Type of service Nurse-only Follow-up Visit Nurse-only Visit (Physician/DATABASE REPORT WRITER Visit ) Arrival Mode Ambulatory Ambulatory Ambulatory Transfer Assistance None None None Patient Identification Verified (Name & Yes Yes Yes ) Patient Requires Transmission-Based No No No Precautions Height and Weight Height Weight Weight in Pounds Body Mass Index (BMI) 31.7 31.7 31.7 BMI Classification Obese Obese Obese BSA - Morris Vital Signs Temperature (97.8 F-99.1 F) 97 F L 96.8 F L 98.2 F Temperature Source Temporal Temporal Temporal Pulse Rate (60-100) 87 63 71 Pulse Location Monitor Monitor Monitor Respiratory Rate (12-18) 18 18 18 Respiratory rate source Observation Observation Observation Oxygen Delivery Method Blood Pressure (90/60-120/80) 123/77 H 155/72 H 157/92 H Blood Pressure Mean (mm Hg) 92 99 113 Source Monitor Monitor Monitor Position Semi-Fowlers Sitting Semi-Fowlers Blood Pressure Location Left Arm Left Arm Left Arm History Since Last Visit- (Skip if this is Patient's initial visit) Have you changed medications since your No No No last visit? Any new allergies or adverse reactions No No No Had a fall/change in ADL's that may No No No increase risk of falls Signs or symptoms of abuse and/or No No No neglect since last visit Have you been in the hospital since your No No No last visit? Has dressing in place as prescribed Yes Yes Yes Has compression in place as prescribed Yes Yes Yes Has offloadiing in place as prescribed No No No Experienced any changes in pain level or No No No management Left Footwear Right Footwear Pain Scale: 0-10 Numeric Is Patient Pain Free? Yes Yes Yes Lower Extremity Assessment/ Foot Assessment/ Toe Nail Assessment Right -Posterior Tibial Palpable -Posterior Tibial Doppler -Dorsalis Pedis Palpable -Dorsalis Pedis Doppler -Hair Growth on Legs -Hair Growth on Toes -Temperature of Extremity -Capillary Refill -Dependent Rubor -Blanched when Elevated -Lipodermatosclerosis -Other Deformity -Prior Foot Ulcer -Charcot Joint -Prior Amputation -Thick -Discolored -Deformed -Improper Length & Hygeine Left -Posterior Tibial Palpable -Posterior Tibial Doppler -Dorsalis Pedis Palpable -Dorsalis Pedis Doppler -Extremity Color -Hair Growth on Legs -Hair Growth on Toes -Temperature of Extremity -Capillary Refill -Dependent Rubor -Blanched when Elevated -Lipodermatosclerosis -Other Deformity -Prior Foot Ulcer -Charcot Joint -Prior Amputation -Thick -Discolored -Deformed -Improper Length & Hygeine Neuropathy Assessment Feet - Top Side and Bottom Communication Assessment Preferred speech language specialist Required Able to Read Able to Write Communication Tools Caregiver Communication Skills Impairment Right Hearing Abillity Left Hearing Abillity Visual Assistive Devices Teaching Assessment Preferences Barriers to Learning Readiness To Learn Willingness to Engage in Self Management Activies Readiness to Engage in Self Management Activities Anxiety Level Cooperation Perception Interest in Health Problem Education Importance Does Patient Smoke tobacco or other substances Smoking Status Is Patient Diabetic Functional Assessment Recent Decline in Ability to Perform Assistive Device With Patient Culture/Presybeterian/Managed Services Consultant Cultural/Presybeterian Needs that may affect Treatment Plan Would you allow our hospital recruiter coordinator to meet you for the purpose of spiritual/ emotional support? Managed Services Consultant to contact place of sikhism Teaching: Wound Center *Welcome to the Wound Center -Person Taught -Teaching Method -Response to teaching 10/24/23 08:53 WC - Today's Visit Information Type of service Follow-up Visit (Physician/DATABASE REPORT WRITER ) Arrival Mode Ambulatory Transfer Assistance Patient Identification Verified (Name & Yes ) Patient Requires Transmission-Based Precautions Height and Weight Height Weight Weight in Pounds Body Mass Index (BMI) 31.7 BMI Classification Obese BSA - Morris Vital Signs Temperature (97.8 F-99.1 F) 97.5 F L Temperature Source Temporal Pulse Rate (60-100) 75 Pulse Location Monitor Respiratory Rate (12-18) 18 Respiratory rate source Observation Oxygen Delivery Method Room Air Blood Pressure (90/60-120/80) 160/97 H Blood Pressure Mean (mm Hg) 118 Source Monitor Position Semi-Fowlers Blood Pressure Location Left Arm History Since Last Visit- (Skip if this is Patient's initial visit) Have you changed medications since your No last visit? Any new allergies or adverse reactions No Had a fall/change in ADL's that may No increase risk of falls Signs or symptoms of abuse and/or No neglect since last visit Have you been in the hospital since your No last visit? Has dressing in place as prescribed Yes Has compression in place as prescribed Yes Has offloadiing in place as prescribed N/A Experienced any changes in pain level or No management Left Footwear Regular Shoe Right Footwear Regular Shoe Pain Scale: 0-10 Numeric Is Patient Pain Free? Yes Lower Extremity Assessment/ Foot Assessment/ Toe Nail Assessment Right -Posterior Tibial Palpable -Posterior Tibial Doppler -Dorsalis Pedis Palpable -Dorsalis Pedis Doppler -Hair Growth on Legs -Hair Growth on Toes -Temperature of Extremity -Capillary Refill -Dependent Rubor -Blanched when Elevated -Lipodermatosclerosis -Other Deformity -Prior Foot Ulcer -Charcot Joint -Prior Amputation -Thick -Discolored -Deformed -Improper Length & Hygeine Left -Posterior Tibial Palpable -Posterior Tibial Doppler -Dorsalis Pedis Palpable -Dorsalis Pedis Doppler -Extremity Color -Hair Growth on Legs -Hair Growth on Toes -Temperature of Extremity -Capillary Refill -Dependent Rubor -Blanched when Elevated -Lipodermatosclerosis -Other Deformity -Prior Foot Ulcer -Charcot Joint -Prior Amputation -Thick -Discolored -Deformed -Improper Length & Hygeine Neuropathy Assessment Feet - Top Side and Bottom Communication Assessment Preferred speech language specialist Required Able to Read Able to Write Communication Tools Caregiver Communication Skills Impairment Right Hearing Abillity Left Hearing Abillity Visual Assistive Devices Teaching Assessment Preferences Barriers to Learning Readiness To Learn Willingness to Engage in Self Management Activies Readiness to Engage in Self Management Activities Anxiety Level Cooperation Perception Interest in Health Problem Education Importance Does Patient Smoke tobacco or other substances Smoking Status Is Patient Diabetic Functional Assessment Recent Decline in Ability to Perform Assistive Device With Patient Culture/Presybeterian/Managed Services Consultant Cultural/Presybeterian Needs that may affect Treatment Plan Would you allow our hospital recruiter coordinator to meet you for the purpose of spiritual/ emotional support? Managed Services Consultant to contact place of sikhism Teaching: Wound Center *Welcome to the Wound Center -Person Taught -Teaching Method -Response to teaching (a) 1 - + throughout WC - Nurse 1 - General Ulcer Measurement Start: 10/03/23 08:28 Freq: Status: Active Protocol: Activity Type Activity Date Activity User E-sign Co-sign Detail Recorded Client Recorded Date Recorded By Document 10/03/23 09:02 RB Desktop 10/03/23 09:17 RB Document 10/06/23 12:24 RB [id number] 10/06/23 12:26 RB Document 10/10/23 09:10 BMF Desktop 10/10/23 09:18 BMF Document 10/13/23 11:08 RB [id number] 10/13/23 11:13 RB Document 10/17/23 09:19 RB Desktop 10/17/23 09:21 RB Document 10/20/23 12:35 RB [id number] 10/20/23 12:41 RB Document 10/24/23 08:53 KW Desktop 10/24/23 08:58 KW 10/03/23 10/06/23 10/10/23 09:02 12:24 09:10 Wound Center Nurse 1 1. LLE -Combined with other wound No No -Current Size (cm) - Length 6.5 6 -Current Size (cm) - Width 4.5 3.6 -Current Size (cm) - Depth 0.2 0.3 -Total Square Cm 29.25 21.6 -Date of Last Picture (Recall this 10/10/23 field) -Photo Taken Yes Yes -Epithelialization Small 1-33% -Tunneling No No -Undermining/Tunneling No No -Circular Undermining No No -Exudate Amt Medium Medium -Exudate Type Serosanguineous Serosanguineous -Wound Margin Distinct, Distinct, Outline Outline Attached Attached -Granulation Amt Medium (34-66%) Medium (34-66%) -Granulation Quality Kersey Hyper- granulation,Red -Slough/Fibrin Yes Yes -Necrosis Amt Medium (34-66%) Medium (34-66%) -Necrotic Tissue Type Adherent Slough Adherent Slough -Structure Exposed N/A -Texture (Astrid-wound Skin Appearance) Assessed Assessed, Scarring -Moisture (Astrid-wound Skin Appearance) Assessed Assessed, Maceration -Color (Astrid-wound Skin Appearance) Assessed, Assessed, Hemosiderin Erythema Staining -Temperature (Astrid-wound Skin No Abnormality No Abnormality Appearance) (Pt Warm) (Pt Warm) -Tenderness on Palpation (Astrid-wound No No Skin Appearance) -Ulcer Cleansing Wound Cleanser Soap and Water -Foul Odor after Cleansing No No -Anesthetic Used 5% Lidocaine 4% Lidocaine Gel Solution Lower Limb Edema Present Yes Yes Yes Right Calf (cm) 41.5 Right Ankle (cm) 24.5 Left Calf (cm) 42 41 39.4 Left Ankle (cm) 24.2 23.6 23.5 10/13/23 10/17/23 10/20/23 11:08 09:19 12:35 Wound Center Nurse 1 1. LLE -Combined with other wound No -Current Size (cm) - Length 5.8 -Current Size (cm) - Width 3.7 -Current Size (cm) - Depth 0.2 -Total Square Cm 21.46 -Date of Last Picture (Recall this field) -Photo Taken -Epithelialization -Tunneling No -Undermining/Tunneling No -Circular Undermining No -Exudate Amt Large -Exudate Type Serosanguineous -Wound Margin Distinct, Outline Attached -Granulation Amt Medium (34-66%) -Granulation Quality Kersey,Red -Slough/Fibrin Yes -Necrosis Amt Small (1-33%) -Necrotic Tissue Type Adherent Slough -Structure Exposed N/A -Texture (Astrid-wound Skin Appearance) Assessed -Moisture (Astrid-wound Skin Appearance) Assessed -Color (Astrid-wound Skin Appearance) Hemosiderin Staining -Temperature (Astrid-wound Skin No Abnormality Appearance) (Pt Warm) -Tenderness on Palpation (Astrid-wound No Skin Appearance) -Ulcer Cleansing Wound Cleanser -Foul Odor after Cleansing No -Anesthetic Used 5% Lidocaine Gel Lower Limb Edema Present Yes Yes Yes Right Calf (cm) Right Ankle (cm) Left Calf (cm) 40.5 40 40 Left Ankle (cm) 23.7 23.7 23.5 10/24/23 08:53 Wound Center Nurse 1 1. LLE -Combined with other wound -Current Size (cm) - Length 6 -Current Size (cm) - Width 3.1 -Current Size (cm) - Depth 0.1 -Total Square Cm 18.6 -Date of Last Picture (Recall this field) -Photo Taken -Epithelialization -Tunneling -Undermining/Tunneling -Circular Undermining -Exudate Amt Medium -Exudate Type Serosanguineous -Wound Margin Distinct, Outline Attached -Granulation Amt Large (67-100%) -Granulation Quality Red -Slough/Fibrin -Necrosis Amt Small (1-33%) -Necrotic Tissue Type Adherent Slough -Structure Exposed -Texture (Astrid-wound Skin Appearance) Assessed -Moisture (Astrid-wound Skin Appearance) Assessed -Color (Astrid-wound Skin Appearance) Assessed -Temperature (Astrid-wound Skin No Abnormality Appearance) (Pt Warm) -Tenderness on Palpation (Astrid-wound Skin Appearance) -Ulcer Cleansing Soap and Water -Foul Odor after Cleansing -Anesthetic Used 5% Lidocaine Gel Lower Limb Edema Present Right Calf (cm) Right Ankle (cm) Left Calf (cm) 39.2 Left Ankle (cm) 23.3 WC - Nurse 2 - General Ulcer CM Notes Start: 10/03/23 08:28 Freq: Status: Active Protocol: Activity Type Activity Date Activity User E-sign Co-sign Detail Recorded Client Recorded Date Recorded By Document 10/03/23 09:45 JF Laptop 10/03/23 09:49 JF Document 10/10/23 09:38 JF Laptop 10/10/23 09:48 JF Edit Result 10/10/23 09:38 JF (1) [id number] 10/11/23 06:32 PL Document 10/17/23 09:35 JF Laptop 10/17/23 09:36 JF Document 10/24/23 09:13 JF Laptop 10/24/23 09:15 JF (1) 1. LLE - Debridement, SubQ, ea addt'l 20sq cm => 1 or part thereof 10/03/23 10/10/23 10/17/23 09:45 09:38 09:35 Wound Center Nurse 2 1. LLE -Time 09:48 09:47 09:35 -Correct Patient Yes Yes Yes -Correct Side, Site, Position Yes Yes Yes -Correct Procedure Yes Yes Yes -Procedure Performed Yes Yes Yes -Type of Procedure Debridement Debridement Debridement -Clinical Debridement Subcutaneous Subcutaneous Subcutaneous -Tissue Removed Dermis Subcutaneous Subcutaneous -Post Debridement (cm) - Length 6.0 6.1 3.0 -Post Debridement (cm) - Width 4.5 3.7 5.8 -Post Debridement (cm) - Depth 0.2 0.2 0.2 -Total Square (Post) (cm) 27.00 22.57 17.40 -Area of Debridement (cm) - Length 6.0 6.1 3.0 -Area of Debridement (cm) - Width 4.5 3.7 5.8 -Total Square (Area) (cm) 27.00 22.57 17.40 -Tunneling No No No -Undermining/Tunneling No No No -Circular Undermining No No No -Wound/Ulcer Outcome Not Healed Not Healed Not Healed -Ulcer Cleansing Rinsed/ Rinsed/ Rinsed/ Irrigated with Irrigated with Irrigated with Saline Saline Saline -Foul Odor after Cleansing No No No -Bioengineered Tissue No No No -Type of Bioengineered Tissue -Expiration Date -Product Lot Number -Percent Used -Lot number of Saline Used -Bleeding Controlled with Pressure Pressure Pressure -Treatment Response Procedure Procedure Procedure Tolerated Well Tolerated Well Tolerated Well -Offloading No No No -Debridement - Subq, 1st 20sq cm Yes Yes Yes -Debridement, SubQ, ea addt'l 20sq cm 1 1 or part thereof -Apply Skin Sub - 1st 25 sq cm - Legs -Epifix Mesh (per sq cm) Pain Scale: 0-10 Numeric Is Patient Pain Free? Yes Yes Yes 10/24/23 09:13 Wound Center Nurse 2 1. LLE -Time -Correct Patient Yes -Correct Side, Site, Position Yes -Correct Procedure Yes -Procedure Performed Yes -Type of Procedure Debridement -Clinical Debridement Subcutaneous -Tissue Removed Subcutaneous -Post Debridement (cm) - Length 3 -Post Debridement (cm) - Width 5.8 -Post Debridement (cm) - Depth 0.1 -Total Square (Post) (cm) 17.4 -Area of Debridement (cm) - Length 3.0 -Area of Debridement (cm) - Width 5.8 -Total Square (Area) (cm) 17.40 -Tunneling No -Undermining/Tunneling No -Circular Undermining No -Wound/Ulcer Outcome Not Healed -Ulcer Cleansing Rinsed/ Irrigated with Saline -Foul Odor after Cleansing No -Bioengineered Tissue Yes -Type of Bioengineered Tissue Epifix Mesh -Expiration Date 04/28/28 -Product Lot Number [id number] -Percent Used 100 -Lot number of Saline Used [id number] -Bleeding Controlled with Pressure -Treatment Response Procedure Tolerated Well -Offloading No -Debridement - Subq, 1st 20sq cm No -Debridement, SubQ, ea addt'l 20sq cm or part thereof -Apply Skin Sub - 1st 25 sq cm - Legs 1 -Epifix Mesh (per sq cm) 11 Pain Scale: 0-10 Numeric Is Patient Pain Free? Yes - Nurse 3 - General Ulcer D/C NN Start: 10/03/23 08:28 Freq: Status: Active Protocol: Activity Type Activity Date Activity User E-sign Co-sign Detail Recorded Client Recorded Date Recorded By Document 10/03/23 10:09 DL Desktop 10/03/23 10:10 DL Document 10/06/23 12:24 RB [id number] 10/06/23 12:26 RB Document 10/10/23 10:01 BMF Desktop 02/13/24 10:02 BMF Document 10/13/23 11:08 RB [id number] 10/13/23 11:13 RB Document 10/17/23 09:48 DL Desktop 10/17/23 09:49 DL Document 10/20/23 12:35 RB [id number] 10/20/23 12:41 RB 10/03/23 10/06/23 10/10/23 10:09 12:24 10:01 Wound Care Center Nurse 3 1. LLE -Ulcer Cleansing Soap and Water -Foul Odor after Cleansing No -Primary Dressing Applied NonAdherent NonAdherent NonAdherent Contact Layer, Contact Layer, Contact Layer Optilok 6.5x10, Optilok 6.5x10, Silvercel Silvercel -Other Dressing silvercel -Primary Dressing Covered/Secured with Dry Gauze & Roll Gauze, Secured with Tape -Other Covering abd -Optilok 6.5x10 1 1 -Silvercel 1 1 Left -Lotion applied to leg before Yes compression wrap -Multi-Layered Wrap Application Multi-Layer Multi-Layer Multi-Layer Comp - Left ($) Comp - Left ($) Comp - Left ($) Treatment Response Procedure Procedure Procedure Tolerated Well Tolerated Well Tolerated Well Vital Signs Temperature (97.8 F-99.1 F) 96.6 F L Temperature Source Temporal Pulse Rate (60-100) 70 Pulse Location Monitor Respiratory Rate (12-18) 18 Respiratory rate source Observation Blood Pressure (90/60-120/80) 145/82 H Blood Pressure Mean (mm Hg) 103 Source Monitor Position Semi-Fowlers Blood Pressure Location Left Arm Pain Scale: 0-10 Numeric Is Patient Pain Free? Yes Yes Yes WC - Visit Discharge Discharge Condition Stable Stable Stable Ambulatory Status Ambulatory Ambulatory Ambulatory Transportation Private Auto Private Auto Private Auto Medication Reconcilliation completed & No provided to patient/care provider Clinical Summary of Care Provided Yes 10/13/23 10/17/23 10/20/23 11:08 09:48 12:35 Wound Care Center Nurse 3 1. LLE -Ulcer Cleansing Wound Cleanser Soap and Water Wound Cleanser -Foul Odor after Cleansing No -Primary Dressing Applied NonAdherent NonAdherent Optilok 6.5x10 Contact Layer, Contact Layer, Optilok 6.5x10, Optilok 6.5x10, Silvercel Silvercel -Other Dressing SILVERCEL -Primary Dressing Covered/Secured with Dry Gauze & Roll Gauze, Secured with Tape -Other Covering -Optilok 6.5x10 1 1 1 -Silvercel 1 1 Left -Lotion applied to leg before compression wrap -Multi-Layered Wrap Application Multi-Layer Multi-Layer Multi-Layer Comp - Left ($) Comp - Left ($) Comp - Right ($ ) Treatment Response Procedure Procedure Procedure Tolerated Well Tolerated Well Tolerated Well Vital Signs Temperature (97.8 F-99.1 F) 97 F L 98.2 F Temperature Source Temporal Temporal Pulse Rate (60-100) 87 71 Pulse Location Monitor Monitor Respiratory Rate (12-18) 18 18 Respiratory rate source Observation Observation Blood Pressure (90/60-120/80) 123/77 H 157/92 H Blood Pressure Mean (mm Hg) 92 113 Source Monitor Monitor Position Semi-Fowlers Semi-Fowlers Blood Pressure Location Left Arm Left Arm Pain Scale: 0-10 Numeric Is Patient Pain Free? Yes Yes Yes WC - Visit Discharge Discharge Condition Stable Stable Stable Ambulatory Status Ambulatory Ambulatory Ambulatory Transportation Private Auto Private Auto Private Auto Medication Reconcilliation completed & No No provided to patient/care provider Clinical Summary of Care Provided Yes Yes Assessment/Plan Assessment/Plan (1) Venous insufficiency (chronic) (peripheral): CODE(S): I87.2 - Venous insufficiency (chronic) (peripheral) PLAN: Exam performed Neurovascular status intact, will consider arterial studies if there are any delays in healing Wound greater than 25% improved over 1 week of treatment Excisional debridement left lower leg wound performed with RFMicron debrider Today left lower extremity wound was excisionally debrided down to including level of subcutaneous tissue of all nonviable tissue using RFMicron debrider. Topical anesthesia was used. Pre and postdebridement measurements documented nursing notes. Patient tolerated procedure well. Topical anesthesia used. Hemostasis obtained with light compression. Wound was flushed with copious amounts normal sterile saline, swab culture taken No additional antibiotics needed at this time Today EpiFix graft was applied 4 x 4.5 cm meshed graft, 11 billing units to its entirety to the left leg wound. Entire graft used, no waste. This was stabilized with overlying Adaptic, 4 x 4's, DSD and 3M compression dressing. Patient will follow-up for nursing dressing change and next week for additional care. Significant wound improvement noted today. Patient to follow-up in 1 week (2) Non-pressure chronic ulcer of left ankle with fat layer exposed: CODE(S): L97.322 - Non-pressure chronic ulcer of left ankle with fat layerexposed 10/24/23917 <Electronically signed by Nick Forbes DPM> Cosigner Signature (if applicable): CC: ~ Signed [facility] Work Phone: 1(908) 196-621702-20-2024 Progress note Author Nick Forbes [facility] October 17, 2023 9:38am Note Date/Time October 17, 2023 9:38am [facility] [address] [place] [address] Progress Note - Wound Care 10/17/2337 MR#: [id number] Acct: [id number] Name: ABDOUL ALICEA Rep #:[id number] : 1950 72 From: Nick Forbes DPM PCP: Dr. Katlyn Lantigua MD Status:REG RCR Location: History of Present Illness Date of Service: 10/17/23 History of Wound: 72-year-old male has had a wound since May 2023. Patient was chopping firewood and had a few piece of wood fall onto his left leg. Patient suffered a laceration was seen in the emergency department at that time which they flushed and cleaned the wound and closed it primarily after updating his tetanus status. Patient subsequently had his sutures removed and developed a full- thickness ulceration to his left medial leg. Patient had been performingself-care with daily dressing changes and noticed no healing, therefore, he presents today. Patient has no obvious medical problems and is not currently onany long-term medications. Patient does have bilateral lower extremity swelling. 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 Patient notes some pain to the wound site. Patient has no other complaints. Objective Data Objective Data Vital Signs: Vital Signs Temp Pulse Resp BP O2 Del Method 96.8 F L 63 18 155/72 H Room Air 10/17/23 09:19 10/17/23 09:19 10/17/23 09:19 10/17/23 09:19 10/10/23 09:10 Oxygen Delivery Method Room Air Weight: 106.141 kg Body Mass Index (BMI) 31.7 Lab / Micro Data Micro: Microbiology 10/03/23 09:43 Wound - Leg, Left Gram Stain - Final 10/03/23 09:43 Wound - Leg, Left Wound Culture - Final Staphylococcus aureus 10/03/23 09:43 Wound - Leg, Left Anaerobic Culture - Final No anaerobic bacteria isolated. Physical Exam Narrative Patient has palpable 2 out of 4 DP PT pulses to right lower extremity. Left lower extremity PT is palpable 2 out of 4. Dorsalis pedis is biphasic On Doppler examination. Patient has +2 pitting edema to bilateral lower extremity perimalleolar region with positive hemosiderin deposits and superficial varicosities. Patient has intact light touch protective sensation as well as deep tendon reflexes Achilles. No obvious clonus. Full-thickness wound noted to the medial left ankle along the course of the great saphenous vein with a mixed fibrogranular base. No overt signs of infection such as erythema malodor or purulent drainage warmth. There is some pain to the wound and periwound area. Musculoskeletal muscular strength full to bilateral lower extremity compartments. No wounds forming deformities noted. No sign DVT. Const alert and oriented x3 Debridement Note Debridement Note Post-Debridement Measurements and Additional Note: Post-Debridement Measurements/Treatment - Nurse 1 - General Ulcer Assessment Start: 10/03/23 08:28 Freq: Status: Active Protocol: .LOWEXT Activity Type Activity Date Activity User E-sign Co-sign Detail Recorded Client Recorded Date Recorded By Document 10/03/23 09:02 RB Desktop 10/03/23 09:17 RB Document 10/06/23 12:24 RB [id number] 10/06/23 12:26 RB Document 10/10/23 09:10 BMF Desktop 10/10/23 09:18 BMF Document 10/13/23 11:08 RB [id number] 10/13/23 11:13 RB Document 10/17/23 09:19 RB Desktop 10/17/23 09:21 RB 10/03/23 10/06/23 10/10/23 09:02 12:24 09:10 - Today's Visit Information Type of service Initial Visit Nurse-only Follow-up Visit Visit (Physician/DATABASE REPORT WRITER ) Arrival Mode Ambulatory Ambulatory Ambulatory Transfer Assistance None None None Patient Identification Verified (Name & Yes Yes Yes ) Patient Requires Transmission-Based No No No Precautions Height and Weight Height 6 ft Weight 106.141 kg Weight in Pounds 234.0 lbs Body Mass Index (BMI) 31.7 31.7 31.7 BMI Classification Obese Obese Obese BSA - [place] 2.28 Vital Signs Temperature (97.8 F-99.1 F) 97 F L 96.6 F L Temperature Source Temporal Temporal Pulse Rate (60-100) 67 70 83 Pulse Location Monitor Monitor Monitor Respiratory Rate (12-18) 18 18 16 Respiratory rate source Observation Observation Observation Oxygen Delivery Method Room Air Blood Pressure (90/60-120/80) 168/94 H 145/82 H 154/92 H Blood Pressure Mean (mm Hg) 118 103 112 Source Monitor Monitor Monitor Position Semi-Fowlers Semi-Fowlers Sitting Blood Pressure Location Left Arm Left Arm Right Arm History Since Last Visit- (Skip if this is Patient's initial visit) Have you changed medications since your No No last visit? Any new allergies or adverse reactions No No Had a fall/change in ADL's that may No No increase risk of falls Signs or symptoms of abuse and/or No No neglect since last visit Have you been in the hospital since your No No last visit? Has dressing in place as prescribed Yes Yes Has compression in place as prescribed Yes Yes Has offloadiing in place as prescribed No N/A Experienced any changes in pain level or No No management Left Footwear Regular Shoe Right Footwear Regular Shoe Pain Scale: 0-10 Numeric Is Patient Pain Free? Yes Yes Yes Lower Extremity Assessment/ Foot Assessment/ Toe Nail Assessment Right -Posterior Tibial Palpable Yes -Posterior Tibial Doppler Multiphasic -Dorsalis Pedis Palpable Yes -Dorsalis Pedis Doppler Multiphasic -Hair Growth on Legs Yes -Hair Growth on Toes No -Temperature of Extremity Cool -Capillary Refill Greater than 3 Seconds -Dependent Rubor No -Blanched when Elevated No -Lipodermatosclerosis No -Other Deformity No -Prior Foot Ulcer No -Charcot Joint No -Prior Amputation No -Thick No -Discolored No -Deformed No -Improper Length & Hygeine Yes Left -Posterior Tibial Palpable No -Posterior Tibial Doppler Monophasic -Dorsalis Pedis Palpable No -Dorsalis Pedis Doppler Monophasic -Extremity Color Hemosiderin -Hair Growth on Legs Yes -Hair Growth on Toes No -Temperature of Extremity Cool -Capillary Refill Greater than 3 Seconds -Dependent Rubor No -Blanched when Elevated No -Lipodermatosclerosis No -Other Deformity No -Prior Foot Ulcer No -Charcot Joint No -Prior Amputation No -Thick No -Discolored No -Deformed No -Improper Length & Hygeine Yes Neuropathy Assessment Feet - Top Side and Bottom <Entered> (a) Communication Assessment Preferred language [place] Tongue Carrier Required No Able to Read Yes Able to Write Yes Communication Tools None Caregiver Communication Skills No Impairment Impairment Right Hearing Abillity Normal Left Hearing Abillity Normal Visual Assistive Devices Glasses Teaching Assessment Preferences Verbal,Written, Demonstration Barriers to Learning None Readiness To Learn Excellent Willingness to Engage in Self Management High Activies Readiness to Engage in Self Management High Activities Anxiety Level Calm Cooperation Cooperative Perception Coherent Interest in Health Problem Asks Questions Education Importance Acknowledges Need Does Patient Smoke tobacco or other No substances Smoking Status Former smoker Is Patient Diabetic No Functional Assessment Recent Decline in Ability to Perform Denies Any Declines Assistive Device With Patient No Culture/Presybeterian/Managed Services Consultant Cultural/Presybeterian Needs that may affect No Treatment Plan Would you allow our hospital recruiter coordinator to No meet you for the purpose of spiritual/ emotional support? Managed Services Consultant to contact place of sikhism No Teaching: Wound Center *Welcome to the Wound Center -Person Taught Patient -Teaching Method Discussion, Demonstration -Response to teaching Verbalize understanding 10/13/23 10/17/23 11:08 09:19 WC - Today's Visit Information Type of service Nurse-only Follow-up Visit Visit (Physician/DATABASE REPORT WRITER ) Arrival Mode Ambulatory Ambulatory Transfer Assistance None None Patient Identification Verified (Name & Yes Yes ) Patient Requires Transmission-Based No No Precautions Height and Weight Height Weight Weight in Pounds Body Mass Index (BMI) 31.7 31.7 BMI Classification Obese Obese [facility] - [place] Vital Signs Temperature (97.8 F-99.1 F) 97 F L 96.8 F L Temperature Source Temporal Temporal Pulse Rate (60-100) 87 63 Pulse Location Monitor Monitor Respiratory Rate (12-18) 18 18 Respiratory rate source Observation Observation Oxygen Delivery Method Blood Pressure (90/60-120/80) 123/77 H 155/72 H Blood Pressure Mean (mm Hg) 92 99 Source Monitor Monitor Position Semi-Fowlers Sitting Blood Pressure Location Left Arm Left Arm History Since Last Visit- (Skip if this is Patient's initial visit) Have you changed medications since your No No last visit? Any new allergies or adverse reactions No No Had a fall/change in ADL's that may No No increase risk of falls Signs or symptoms of abuse and/or No No neglect since last visit Have you been in the hospital since your No No last visit? Has dressing in place as prescribed Yes Yes Has compression in place as prescribed Yes Yes Has offloadiing in place as prescribed No No Experienced any changes in pain level or No No management Left Footwear Right Footwear Pain Scale: 0-10 Numeric Is Patient Pain Free? Yes Yes Lower Extremity Assessment/ Foot Assessment/ Toe Nail Assessment Right -Posterior Tibial Palpable -Posterior Tibial Doppler -Dorsalis Pedis Palpable -Dorsalis Pedis Doppler -Hair Growth on Legs -Hair Growth on Toes -Temperature of Extremity -Capillary Refill -Dependent Rubor -Blanched when Elevated -Lipodermatosclerosis -Other Deformity -Prior Foot Ulcer -Charcot Joint -Prior Amputation -Thick -Discolored -Deformed -Improper Length & Hygeine Left -Posterior Tibial Palpable -Posterior Tibial Doppler -Dorsalis Pedis Palpable -Dorsalis Pedis Doppler -Extremity Color -Hair Growth on Legs -Hair Growth on Toes -Temperature of Extremity -Capillary Refill -Dependent Rubor -Blanched when Elevated -Lipodermatosclerosis -Other Deformity -Prior Foot Ulcer -Charcot Joint -Prior Amputation -Thick -Discolored -Deformed -Improper Length & Hygeine Neuropathy Assessment Feet - Top Side and Bottom Communication Assessment Preferred speech language specialist Required Able to Read Able to Write Communication Tools Caregiver Communication Skills Impairment Right Hearing Abillity Left Hearing Abillity Visual Assistive Devices Teaching Assessment Preferences Barriers to Learning Readiness To Learn Willingness to Engage in Self Management Activies Readiness to Engage in Self Management Activities Anxiety Level Cooperation Perception Interest in Health Problem Education Importance Does Patient Smoke tobacco or other substances Smoking Status Is Patient Diabetic Functional Assessment Recent Decline in Ability to Perform Assistive Device With Patient Culture/Presybeterian/Managed Services Consultant Cultural/Presybeterian Needs that may affect Treatment Plan Would you allow our hospital recruiter coordinator to meet you for the purpose of spiritual/ emotional support? Managed Services Consultant to contact place of sikhism Teaching: Wound Center *Welcome to the Wound Center -Person Taught -Teaching Method -Response to teaching (a) 1 - + throughout WC - Nurse 1 - General Ulcer Measurement Start: 10/03/23 08:28 Freq: Status: Active Protocol: Activity Type Activity Date Activity User E-sign Co-sign Detail Recorded Client Recorded Date Recorded By Document 10/03/23 09:02 RB Desktop 10/03/23 09:17 RB Document 10/06/23 12:24 RB [id number] 10/06/23 12:26 RB Document 10/10/23 09:10 [facility] Desktop 10/10/23 09:18 [facility] Document 10/13/23 11:08 RB [id number] 10/13/23 11:13 RB Document 10/17/23 09:19 RB Desktop 10/17/23 09:21 RB 10/03/23 10/06/23 10/10/23 09:02 12:24 09:10 Wound Center Nurse 1 1. LLE -Combined with other wound No No -Current Size (cm) - Length 6.5 6 -Current Size (cm) - Width 4.5 3.6 -Current Size (cm) - Depth 0.2 0.3 -Total Square Cm 29.25 21.6 -Date of Last Picture (Recall this 10/10/23 field) -Photo Taken Yes Yes -Epithelialization Small 1-33% -Tunneling No No -Undermining/Tunneling No No -Circular Undermining No No -Exudate Amt Medium Medium -Exudate Type Serosanguineous Serosanguineous -Wound Margin Distinct, Distinct, Outline Outline Attached Attached -Granulation Amt Medium (34-66%) Medium (34-66%) -Granulation Quality Kersey Hyper- granulation,Red -Slough/Fibrin Yes Yes -Necrosis Amt Medium (34-66%) Medium (34-66%) -Necrotic Tissue Type Adherent Slough Adherent Slough -Structure Exposed N/A -Texture (Astrid-wound Skin Appearance) Assessed Assessed, Scarring -Moisture (Astrid-wound Skin Appearance) Assessed Assessed, Maceration -Color (Astrid-wound Skin Appearance) Assessed, Assessed, Hemosiderin Erythema Staining -Temperature (Astrid-wound Skin No Abnormality No Abnormality Appearance) (Pt Warm) (Pt Warm) -Tenderness on Palpation (Astrid-wound No No Skin Appearance) -Ulcer Cleansing Wound Cleanser Soap and Water -Foul Odor after Cleansing No No -Anesthetic Used 5% Lidocaine 4% Lidocaine Gel Solution Lower Limb Edema Present Yes Yes Yes Right Calf (cm) 41.5 Right Ankle (cm) 24.5 Left Calf (cm) 42 41 39.4 Left Ankle (cm) 24.2 23.6 23.5 10/13/23 10/17/23 11:08 09:19 Wound Center Nurse 1 1. LLE -Combined with other wound No -Current Size (cm) - Length 5.8 -Current Size (cm) - Width 3.7 -Current Size (cm) - Depth 0.2 -Total Square Cm 21.46 -Date of Last Picture (Recall this field) -Photo Taken -Epithelialization -Tunneling No -Undermining/Tunneling No -Circular Undermining No -Exudate Amt Large -Exudate Type Serosanguineous -Wound Margin Distinct, Outline Attached -Granulation Amt Medium (34-66%) -Granulation Quality Kersey,Red -Slough/Fibrin Yes -Necrosis Amt Small (1-33%) -Necrotic Tissue Type Adherent Slough -Structure Exposed N/A -Texture (Astrid-wound Skin Appearance) Assessed -Moisture (Astrid-wound Skin Appearance) Assessed -Color (Astrid-wound Skin Appearance) Hemosiderin Staining -Temperature (Astrid-wound Skin No Abnormality Appearance) (Pt Warm) -Tenderness on Palpation (Astrid-wound No Skin Appearance) -Ulcer Cleansing Wound Cleanser -Foul Odor after Cleansing No -Anesthetic Used 5% Lidocaine Gel Lower Limb Edema Present Yes Yes Right Calf (cm) Right Ankle (cm) Left Calf (cm) 40.5 40 Left Ankle (cm) 23.7 23.7 WC - Nurse 2 - General Ulcer CM Notes Start: 10/03/23 08:28 Freq: Status: Active Protocol: Activity Type Activity Date Activity User E-sign Co-sign Detail Recorded Client Recorded Date Recorded By Document 10/03/23 09:45 JF Laptop 10/03/23 09:49 JF Document 10/10/23 09:38 JF Laptop 10/10/23 09:48 JF Edit Result 10/10/23 09:38 JF (1) [id number] 10/11/23 06:32 PL Document 10/17/23 09:35 JF Laptop 10/17/23 09:36 JF (1) 1. LLE - Debridement, SubQ, ea addt'l 20sq cm => 1 or part thereof 10/03/23 10/10/23 10/17/23 09:45 09:38 09:35 Wound Center Nurse 2 1. LLE -Time 09:48 09:47 09:35 -Correct Patient Yes Yes Yes -Correct Side, Site, Position Yes Yes Yes -Correct Procedure Yes Yes Yes -Procedure Performed Yes Yes Yes -Type of Procedure Debridement Debridement Debridement -Clinical Debridement Subcutaneous Subcutaneous Subcutaneous -Tissue Removed Dermis Subcutaneous Subcutaneous -Post Debridement (cm) - Length 6.0 6.1 3.0 -Post Debridement (cm) - Width 4.5 3.7 5.8 -Post Debridement (cm) - Depth 0.2 0.2 0.2 -Total Square (Post) (cm) 27.00 22.57 17.40 -Area of Debridement (cm) - Length 6.0 6.1 3.0 -Area of Debridement (cm) - Width 4.5 3.7 5.8 -Total Square (Area) (cm) 27.00 22.57 17.40 -Tunneling No No No -Undermining/Tunneling No No No -Circular Undermining No No No -Wound/Ulcer Outcome Not Healed Not Healed Not Healed -Ulcer Cleansing Rinsed/ Rinsed/ Rinsed/ Irrigated with Irrigated with Irrigated with Saline Saline Saline -Foul Odor after Cleansing No No No -Bioengineered Tissue No No No -Bleeding Controlled with Pressure Pressure Pressure -Treatment Response Procedure Procedure Procedure Tolerated Well Tolerated Well Tolerated Well -Offloading No No No -Debridement - Subq, 1st 20sq cm Yes Yes Yes -Debridement, SubQ, ea addt'l 20sq cm 1 1 or part thereof Pain Scale: 0-10 Numeric Is Patient Pain Free? Yes Yes Yes - Nurse 3 - General Ulcer D/C NN Start: 10/03/23 08:28 Freq: Status: Active Protocol: Activity Type Activity Date Activity User E-sign Co-sign Detail Recorded Client Recorded Date Recorded By Document 10/03/23 10:09 DL Desktop 10/03/23 10:10 DL Document 10/06/23 12:24 RB [id number] 10/06/23 12:26 RB Document 10/10/23 10:01 BMF Desktop 10/10/23 10:02 BMF Document 10/13/23 11:08 RB [id number] 10/13/23 11:13 RB 10/03/23 10/06/23 10/10/23 10:09 12:24 10:01 Wound Care Center Nurse 3 1. LLE -Ulcer Cleansing Soap and Water -Foul Odor after Cleansing No -Primary Dressing Applied NonAdherent NonAdherent NonAdherent Contact Layer, Contact Layer, Contact Layer Optilok 6.5x10, Optilok 6.5x10, Silvercel Silvercel -Other Dressing silvercel -Primary Dressing Covered/Secured with Dry Gauze & Roll Gauze, Secured with Tape -Other Covering abd -Optilok 6.5x10 1 1 -Silvercel 1 1 Left -Lotion applied to leg before Yes compression wrap -Multi-Layered Wrap Application Multi-Layer Multi-Layer Multi-Layer Comp - Left ($) Comp - Left ($) Comp - Left ($) Treatment Response Procedure Procedure Procedure Tolerated Well Tolerated Well Tolerated Well Vital Signs Temperature (97.8 F-99.1 F) 96.6 F L Temperature Source Temporal Pulse Rate (60-100) 70 Pulse Location Monitor Respiratory Rate (12-18) 18 Respiratory rate source Observation Blood Pressure (90/60-120/80) 145/82 H Blood Pressure Mean (mm Hg) 103 Source Monitor Position Semi-Fowlers Blood Pressure Location Left Arm Pain Scale: 0-10 Numeric Is Patient Pain Free? Yes Yes Yes WC - Visit Discharge Discharge Condition Stable Stable Stable Ambulatory Status Ambulatory Ambulatory Ambulatory Transportation Private Auto Private Auto Private Auto Medication Reconcilliation completed & No provided to patient/care provider Clinical Summary of Care Provided Yes 10/13/23 11:08 Wound Care Center Nurse 3 1. LLE -Ulcer Cleansing Wound Cleanser -Foul Odor after Cleansing -Primary Dressing Applied NonAdherent Contact Layer, Optilok 6.5x10, Silvercel -Other Dressing -Primary Dressing Covered/Secured with -Other Covering -Optilok 6.5x10 1 -Silvercel 1 Left -Lotion applied to leg before compression wrap -Multi-Layered Wrap Application Multi-Layer Comp - Left ($) Treatment Response Procedure Tolerated Well Vital Signs Temperature (97.8 F-99.1 F) 97 F L Temperature Source Temporal Pulse Rate (60-100) 87 Pulse Location Monitor Respiratory Rate (12-18) 18 Respiratory rate source Observation Blood Pressure (90/60-120/80) 123/77 H Blood Pressure Mean (mm Hg) 92 Source Monitor Position Semi-Fowlers Blood Pressure Location Left Arm Pain Scale: 0-10 Numeric Is Patient Pain Free? Yes WC - Visit Discharge Discharge Condition Stable Ambulatory Status Ambulatory Transportation Private Auto Medication Reconcilliation completed & No provided to patient/care provider Clinical Summary of Care Provided Yes Assessment/Plan Assessment/Plan (1) Venous insufficiency (chronic) (peripheral): CODE(S): I87.2 - Venous insufficiency (chronic) (peripheral) PLAN: Exam performed Neurovascular status intact, will consider arterial studies if there are any delays in healing Wound greater than 25% improved over 1 week of treatment Excisional debridement left lower leg wound performed with RFMicron debrider Today left lower extremity wound was excisionally debrided down to including level of subcutaneous tissue of all nonviable tissue using RFMicron debrider. Topical anesthesia was used. Pre and postdebridement measurements documented nursing notes. Patient tolerated procedure well. Topical anesthesia used. Hemostasis obtained with light compression. Wound was flushed with copious amounts normal sterile saline, swab culture taken Culture positive for Staph aureus, resistance to doxycycline noted. Antibioticschanged to Bactrim double strength twice a day. Discontinue Cipro and doxycycline. Today dressing was performed with Adaptic silver alginate dry sterile dressing and 3M compression. This will be changed once a week via nursing care visit. Will consider advanced wound care grafting pending any failures and local wound care Significant wound improvement noted today. Patient to follow-up in 1 week (2) Non-pressure chronic ulcer of left ankle with fat layer exposed: CODE(S): L97.322 - Non-pressure chronic ulcer of left ankle with fat layerexposed 10/17/23 0938 <Electronically signed by Nick Forbes DPM> Cosigner Signature (if applicable): CC: ~ Signed [facility] Work Phone: 1(230) 887-700602-13-2024 Progress note Author Nick Forbes [facility] October 10, 2023 10:07am Note Date/Time October 10, 2023 10:07am [facility] [address] [place] [address] Progress Note - Wound Care 10/10/23 1005 MR#: [id number] Acct: [id number] Name: ABDOUL ALICEA Rep #:[id number] : 1950 72 From: Nick Forbes DPM PCP: Dr. Katlyn Lantigua MD Status:REG RCR Location: History of Present Illness Date of Service: 10/10/23 History of Wound: 72-year-old male has had a wound since May 2023. Patient was chopping firewood and had a few piece of wood fall onto his left leg. Patient suffered a laceration was seen in the emergency department at that time which they flushed and cleaned the wound and closed it primarily after updating his tetanus status. Patient subsequently had his sutures removed and developed a full- thickness ulceration to his left medial leg. Patient had been performingself-care with daily dressing changes and noticed no healing, therefore, he presents today. Patient has no obvious medical problems and is not currently onany long-term medications. Patient does have bilateral lower extremity swelling. 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 Patient notes some pain to the wound site. Patient has no other complaints. Objective Data Objective Data Vital Signs: Vital Signs Temp Pulse Resp BP O2 Del Method 96.6 F L 83 16 154/92 H Room Air 10/06/23 12:24 10/10/23 09:10 10/10/23 09:10 10/10/23 09:10 10/10/23 09:10 Oxygen Delivery Method Room Air Weight: 106.141 kg Body Mass Index (BMI) 31.7 Lab / Micro Data Micro: Microbiology 10/03/23 09:43 Wound - Leg, Left Gram Stain - Final 10/03/23 09:43 Wound - Leg, Left Wound Culture - Final Staphylococcus aureus 10/03/23 09:43 Wound - Leg, Left Anaerobic Culture - Final No anaerobic bacteria isolated. Physical Exam Narrative Patient has palpable 2 out of 4 DP PT pulses to right lower extremity. Left lower extremity PT is palpable 2 out of 4. Dorsalis pedis is biphasic On Doppler examination. Patient has +2 pitting edema to bilateral lower extremity perimalleolar region with positive hemosiderin deposits and superficial varicosities. Patient has intact light touch protective sensation as well as deep tendon reflexes Achilles. No obvious clonus. Full-thickness wound noted to the medial left ankle along the course of the great saphenous vein with a mixed fibrogranular base. No overt signs of infection such as erythema malodor or purulent drainage warmth. There is some pain to the wound and periwound area. Musculoskeletal muscular strength full to bilateral lower extremity compartments. No wounds forming deformities noted. No sign DVT. Const alert and oriented x3 Debridement Note Debridement Note Post-Debridement Measurements and Additional Note: Post-Debridement Measurements/Treatment - Nurse 1 - General Ulcer Assessment Start: 10/03/23 08:28 Freq: Status: Active Protocol: WC.LOWEXT Activity Type Activity Date Activity User E-sign Co-sign Detail Recorded Client Recorded Date Recorded By Document 10/03/23 09:02 RB Desktop 10/03/23 09:17 RB Document 10/06/23 12:24 RB [id number] 10/06/23 12:26 RB Document 10/10/23 09:10 BM Desktop 10/10/23 09:18 BMF 10/03/23 10/06/23 10/10/23 09:02 12:24 09:10 - Today's Visit Information Type of service Initial Visit Nurse-only Follow-up Visit Visit (Physician/DATABASE REPORT WRITER ) Arrival Mode Ambulatory Ambulatory Ambulatory Transfer Assistance None None None Patient Identification Verified (Name & Yes Yes Yes ) Patient Requires Transmission-Based No No No Precautions Height and Weight Height 6 ft Weight 106.141 kg Weight in Pounds 234.0 lbs Body Mass Index (BMI) 31.7 31.7 31.7 BMI Classification Obese Obese Obese BSA - Morris 2.28 Vital Signs Temperature (97.8 F-99.1 F) 97 F L 96.6 F L Temperature Source Temporal Temporal Pulse Rate (60-100) 67 70 83 Pulse Location Monitor Monitor Monitor Respiratory Rate (12-18) 18 18 16 Respiratory rate source Observation Observation Observation Oxygen Delivery Method Room Air Blood Pressure (90/60-120/80) 168/94 H 145/82 H 154/92 H Blood Pressure Mean (mm Hg) 118 103 112 Source Monitor Monitor Monitor Position Semi-Fowlers Semi-Fowlers Sitting Blood Pressure Location Left Arm Left Arm Right Arm History Since Last Visit- (Skip if this is Patient's initial visit) Have you changed medications since your No No last visit? Any new allergies or adverse reactions No No Had a fall/change in ADL's that may No No increase risk of falls Signs or symptoms of abuse and/or No No neglect since last visit Have you been in the hospital since your No No last visit? Has dressing in place as prescribed Yes Yes Has compression in place as prescribed Yes Yes Has offloadiing in place as prescribed No N/A Experienced any changes in pain level or No No management Left Footwear Regular Shoe Right Footwear Regular Shoe Pain Scale: 0-10 Numeric Is Patient Pain Free? Yes Yes Yes Lower Extremity Assessment/ Foot Assessment/ Toe Nail Assessment Right -Posterior Tibial Palpable Yes -Posterior Tibial Doppler Multiphasic -Dorsalis Pedis Palpable Yes -Dorsalis Pedis Doppler Multiphasic -Hair Growth on Legs Yes -Hair Growth on Toes No -Temperature of Extremity Cool -Capillary Refill Greater than 3 Seconds -Dependent Rubor No -Blanched when Elevated No -Lipodermatosclerosis No -Other Deformity No -Prior Foot Ulcer No -Charcot Joint No -Prior Amputation No -Thick No -Discolored No -Deformed No -Improper Length & Hygeine Yes Left -Posterior Tibial Palpable No -Posterior Tibial Doppler Monophasic -Dorsalis Pedis Palpable No -Dorsalis Pedis Doppler Monophasic -Extremity Color Hemosiderin -Hair Growth on Legs Yes -Hair Growth on Toes No -Temperature of Extremity Cool -Capillary Refill Greater than 3 Seconds -Dependent Rubor No -Blanched when Elevated No -Lipodermatosclerosis No -Other Deformity No -Prior Foot Ulcer No -Charcot Joint No -Prior Amputation No -Thick No -Discolored No -Deformed No -Improper Length & Hygeine Yes Neuropathy Assessment Feet - Top Side and Bottom <Entered> (a) Communication Assessment Preferred language [place] Tongue Carrier Required No Able to Read Yes Able to Write Yes Communication Tools None Caregiver Communication Skills No Impairment Impairment Right Hearing Abillity Normal Left Hearing Abillity Normal Visual Assistive Devices Glasses Teaching Assessment Preferences Verbal,Written, Demonstration Barriers to Learning None Readiness To Learn Excellent Willingness to Engage in Self Management High Activies Readiness to Engage in Self Management High Activities Anxiety Level Calm Cooperation Cooperative Perception Coherent Interest in Health Problem Asks Questions Education Importance Acknowledges Need Does Patient Smoke tobacco or other No substances Smoking Status Former smoker Is Patient Diabetic No Functional Assessment Recent Decline in Ability to Perform Denies Any Declines Assistive Device With Patient No Culture/Presybeterian/Managed Services Consultant Cultural/Presybeterian Needs that may affect No Treatment Plan Would you allow our hospital recruiter coordinator to No meet you for the purpose of spiritual/ emotional support? Managed Services Consultant to contact place of sikhism No Teaching: Wound Center *Welcome to the Wound Center -Person Taught Patient -Teaching Method Discussion, Demonstration -Response to teaching Verbalize understanding (a) 1 - + throughout WC - Nurse 1 - General Ulcer Measurement Start: 10/03/23 08:28 Freq: Status: Active Protocol: Activity Type Activity Date Activity User E-sign Co-sign Detail Recorded Client Recorded Date Recorded By Document 10/03/23 09:02 RB Desktop 10/03/23 09:17 RB Document 10/06/23 12:24 RB [id number] 10/06/23 12:26 RB Document 10/10/23 09:10 BM Desktop 10/10/23 09:18 BMF 10/03/23 10/06/23 10/10/23 09:02 12:24 09:10 Wound Center Nurse 1 1. LLE -Combined with other wound No No -Current Size (cm) - Length 6.5 6 -Current Size (cm) - Width 4.5 3.6 -Current Size (cm) - Depth 0.2 0.3 -Total Square Cm 29.25 21.6 -Date of Last Picture (Recall this 10/10/23 field) -Photo Taken Yes Yes -Epithelialization Small 1-33% -Tunneling No No -Undermining/Tunneling No No -Circular Undermining No No -Exudate Amt Medium Medium -Exudate Type Serosanguineous Serosanguineous -Wound Margin Distinct, Distinct, Outline Outline Attached Attached -Granulation Amt Medium (34-66%) Medium (34-66%) -Granulation Quality Kersey Hyper- granulation,Red -Slough/Fibrin Yes Yes -Necrosis Amt Medium (34-66%) Medium (34-66%) -Necrotic Tissue Type Adherent Slough Adherent Slough -Structure Exposed N/A -Texture (Astrid-wound Skin Appearance) Assessed Assessed, Scarring -Moisture (Astrid-wound Skin Appearance) Assessed Assessed, Maceration -Color (Astrid-wound Skin Appearance) Assessed, Assessed, Hemosiderin Erythema Staining -Temperature (Astrid-wound Skin No Abnormality No Abnormality Appearance) (Pt Warm) (Pt Warm) -Tenderness on Palpation (Astrid-wound No No Skin Appearance) -Ulcer Cleansing Wound Cleanser Soap and Water -Foul Odor after Cleansing No No -Anesthetic Used 5% Lidocaine 4% Lidocaine Gel Solution Lower Limb Edema Present Yes Yes Yes Right Calf (cm) 41.5 Right Ankle (cm) 24.5 Left Calf (cm) 42 41 39.4 Left Ankle (cm) 24.2 23.6 23.5 KIRSTY - Nurse 2 - General Ulcer CM Notes Start: 10/03/23 08:28 Freq: Status: Active Protocol: Activity Type Activity Date Activity User E-sign Co-sign Detail Recorded Client Recorded Date Recorded By Document 10/03/23 09:45 Laptop 10/03/23 09:49 Document 10/10/23 09:38 Laptop 10/10/23 09:48 10/03/23 10/10/23 09:45 09:38 Wound Center Nurse 2 1. LLE -Time 09:48 09:47 -Correct Patient Yes Yes -Correct Side, Site, Position Yes Yes -Correct Procedure Yes Yes -Procedure Performed Yes Yes -Type of Procedure Debridement Debridement -Clinical Debridement Subcutaneous Subcutaneous -Tissue Removed Dermis Subcutaneous -Post Debridement (cm) - Length 6.0 6.1 -Post Debridement (cm) - Width 4.5 3.7 -Post Debridement (cm) - Depth 0.2 0.2 -Total Square (Post) (cm) 27.00 22.57 -Area of Debridement (cm) - Length 6.0 6.1 -Area of Debridement (cm) - Width 4.5 3.7 -Total Square (Area) (cm) 27.00 22.57 -Tunneling No No -Undermining/Tunneling No No -Circular Undermining No No -Wound/Ulcer Outcome Not Healed Not Healed -Ulcer Cleansing Rinsed/ Rinsed/ Irrigated with Irrigated with Saline Saline -Foul Odor after Cleansing No No -Bioengineered Tissue No No -Bleeding Controlled with Pressure Pressure -Treatment Response Procedure Procedure Tolerated Well Tolerated Well -Offloading No No -Debridement - Subq, 1st 20sq cm Yes Yes -Debridement, SubQ, ea addt'l 20sq cm 1 or part thereof Pain Scale: 0-10 Numeric Is Patient Pain Free? Yes Yes KIRSTY - Nurse 3 - General Ulcer D/C NN Start: 10/03/23 08:28 Freq: Status: Active Protocol: Activity Type Activity Date Activity User E-sign Co-sign Detail Recorded Client Recorded Date Recorded By Document 10/03/23 10:09 DL Desktop 02/06/24 10:10 DL Document 10/06/23 12:24 RB [id number] 10/06/23 12:26 RB Document 10/10/23 10:01 BMF Desktop 10/10/23 10:02 BMF 10/03/23 10/06/23 10/10/23 10:09 12:24 10:01 Wound Care Center Nurse 3 1. LLE -Ulcer Cleansing Soap and Water -Foul Odor after Cleansing No -Primary Dressing Applied NonAdherent NonAdherent NonAdherent Contact Layer, Contact Layer, Contact Layer Optilok 6.5x10, Optilok 6.5x10, Silvercel Silvercel -Other Dressing silvercel -Primary Dressing Covered/Secured with Dry Gauze & Roll Gauze, Secured with Tape -Other Covering abd -Optilok 6.5x10 1 1 -Silvercel 1 1 Left -Lotion applied to leg before Yes compression wrap -Multi-Layered Wrap Application Multi-Layer Multi-Layer Multi-Layer Comp - Left ($) Comp - Left ($) Comp - Left ($) Treatment Response Procedure Procedure Procedure Tolerated Well Tolerated Well Tolerated Well Vital Signs Temperature (97.8 F-99.1 F) 96.6 F L Temperature Source Temporal Pulse Rate (60-100) 70 Pulse Location Monitor Respiratory Rate (12-18) 18 Respiratory rate source Observation Blood Pressure (90/60-120/80) 145/82 H Blood Pressure Mean (mm Hg) 103 Source Monitor Position Semi-Fowlers Blood Pressure Location Left Arm Pain Scale: 0-10 Numeric Is Patient Pain Free? Yes Yes Yes WC - Visit Discharge Discharge Condition Stable Stable Stable Ambulatory Status Ambulatory Ambulatory Ambulatory Transportation Private Auto Private Auto Private Auto Medication Reconcilliation completed & No provided to patient/care provider Clinical Summary of Care Provided Yes Assessment/Plan Assessment/Plan (1) Venous insufficiency (chronic) (peripheral): CODE(S): I87.2 - Venous insufficiency (chronic) (peripheral) PLAN: Exam performed Neurovascular status intact, will consider arterial studies if there are any delays in healing Wound greater than 25% improved over 1 week of treatment Local infiltration block performed to left lower extremity medial ankle wound using 10 cc 2.0% lidocaine plain with aseptic technique Excisional debridement left lower leg wound performed with RFMicron debrider Today left lower extremity wound was excisionally debrided down to including level of subcutaneous tissue of all nonviable tissue using my sonics [place] debrider. Topical anesthesia was used. Pre and postdebridement measurements documented nursing notes. Patient tolerated procedure well. Hemostasis obtained with light compression. Wound was flushed with copious amounts normal sterile saline, swab culture taken Culture positive for Staph aureus, resistance to doxycycline noted. Antibioticschanged to Bactrim double strength twice a day. Discontinue Cipro and doxycycline. Today dressing was performed with Adaptic silver alginate dry sterile dressing and 3M compression. This will be changed once a week via nursing care visit. Will consider advanced wound care grafting pending any failures and local wound care Significant wound improvement noted today. Patient to follow-up in 1 week (2) Non-pressure chronic ulcer of left ankle with fat layer exposed: CODE(S): L97.322 - Non-pressure chronic ulcer of left ankle with fat layerexposed 10/10/23 1007 <Electronically signed by Nick Forbes DPM> Cosigner Signature (if applicable): CC: ~ Signed [facility] Work Phone: 1(114) 708-163302-06-2024 History and physical note Author Nick Forbes [facility] October 03, 2023 9:59am Note Date/Time October 03, 2023 9 :59am [facility] [address] [place] [id number] H&P Exam - Wound Care 10/03/23 0953 MR#: [id number] Acct: [id number] Name: ABDOUL ALICEA Rep #:[id number] : 1950 72 From: Nick Forbes DPM PCP: Dr. Katlyn Lantigua MD Status:REG RCR Location: History of Present Illness Date of Service: 10/03/23 History of Wound: 72-year-old male has had a wound since May 2023. Patient was chopping firewood and had a few piece of wood fall onto his left leg. Patient suffered a laceration was seen in the emergency department at that time which they flushed and cleaned the wound and closed it primarily after updating his tetanus status. Patient subsequently had his sutures removed and developed a full- thickness ulceration to his left medial leg. Patient had been performingself-care with daily dressing changes and noticed no healing, therefore, he presents today. Patient has no obvious medical problems and is not currently onany long-term medications. Patient does have bilateral lower extremity swelling. 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 Patient notes some pain to the wound site. Patient has no other complaints. [facility] Medical History Alcohol use Ambulates with cane Arthritis Back pain Bronchiectasis Cancer COVID-19 Former smoker Gastric reflux History of echocardiogram History of edema History of IBS Hx of skin cancer, basal cell Pulmonary embolism Restless legs Shortness of breath on exertion Walker as ambulation aid Wears glasses Wears hearing aid Home Medications albuterol sulfate 90 mcg/actuation aerosol inhaler (Proventil HFA) 1 - 2 puff IHDAILY PRN SOB 10/19/16 [History Last Taken 08/01/22] budesonide-formoterol HFA 160 mcg-4.5 mcg/actuation aerosol inhaler (Symbicort) 1 puff inhalation BID breathing 10/19/16 [History Last Taken 08/01/22] pantoprazole 40 mg tablet,delayed release 40 mg PO DAILY gastric reflux 06/12/21[History Last Taken Unknown] tamsulosin 0.4 mg capsule 0.4 mg PO QHS PRN PRN Urinary Retention 06/12/21 [History Last Taken Unknown] diphenhydramine HCl 50 mg capsule 50 mg PO BID 06/20/22 [History Last Taken Unknown] guaifenesin 1,200 mg tablet, extended release 12 hr (Mucinex) 1,200 mg PO BID 06/20/22 [History Last Taken Unknown] meloxicam 15 mg tablet 15 mg PO DAILY 06/20/22 [History Last Taken Unknown] pseudoephedrine HCl 120 mg tablet,extended release (Sudafed 12 Hour) 120 mg PO DAILY 06/20/22 [History Last Taken Unknown] Restful Legs 1 - 2 tab PO/SL Q4H PRN restless legs 08/02/22 [History Last Taken Unknown] acetaminophen 500 mg tablet 1,000 mg (2 x 500 mg) PO Q8 30 days #180 tabs 08/02/22 [Rx Last Taken Unknown] oxycodone 5 mg tablet 5 - 10 mg (1 - 2 x 5 mg) PO Q4H PRN PRN Pain Score 4-10 7 days #84 tabs 08/02/22 [Rx Last Taken Unknown] rivaroxaban 10 mg tablet (Xarelto) 10 mg PO DINNER Postop DVT prophylaxis 30 days #30 tabs 08/02/22 [Rx Last Taken Unknown] ascorbic acid (vitamin C) 1,000 mg tablet,extended release (C Complex) 1,000 mg PO DAILY 10/03/23 [History Last Taken Unknown] cholecalciferol (vitamin D3) 325 mcg (13,000 unit) capsule 325 mcg PO QWEEK 10/03/23 [History Last Taken Unknown] cyanocobalamin (vitamin B-12) 1,000 mcg tablet (Vitamin B-12) 1,000 mcg PO DAILY10/03/23 [History Last Taken Unknown] ferrous sulfate 325 mg (65 mg iron) tablet (FeroSul) 325 mg PO DAILY 10/03/23 [History Last Taken Unknown] zinc 15 mg tablet 30 mg PO DAILY 10/03/23 [History Last Taken Unknown] Allergy/AdvReac Type Severity Reaction Status Date / Time gabapentin Allergy Rash Verified 06/21/23 14:45 Family History Other Colon cancer Heart disease Surgical History History of back surgery History of hip surgery History of hydrocelectomy Hx of colonoscopy Social History Smoking Status: Former smoker ROS Constitutional Constitutional: Denies body ache(s), change in weight or chills Eyes Eyes: Denies acute decrease in peripheral vision, blindness or change in vision ENT HEENT: Denies abnormal hearing, bleeding gums or dysphagia Cardiovascular Cardiovascular: Denies abdominal bloating, abdominal edema or bluish discoloration of hand/feet Respiratory/Chest Respiratory/Chest: Denies change in mental status, change in phlegm color or difficulty clearing secretions Gastrointestinal Gastrointestinal: Denies anorexia, belching or bloating Genitourinary Genitourinary: Denies abdominal discomfort, anuria or burning urination Musculoskeletal Musculoskeletal: Denies arthralgias, atrophy or back pain Vital Signs Vital Signs Vital Signs: 10/03/23 09:02 Temperature 97 F L Temperature Source Temporal Pulse Rate 67 Respiratory Rate 18 Blood Pressure 168/94 H Blood Pressure Mean 118 Blood Pressure Source Monitor Blood Pressure Position Semi-Fowlers Blood Pressure Location Left Arm Weight Weight: 106.141 kg Body Mass Index (BMI) 31.7 Physical Exam Narrative Patient has palpable 2 out of 4 DP PT pulses to right lower extremity. Left lower extremity PT is palpable 2 out of 4. Dorsalis pedis is biphasic On Doppler examination. Patient has +2 pitting edema to bilateral lower extremity perimalleolar region with positive hemosiderin deposits and superficial varicosities. Patient has intact light touch protective sensation as well as deep tendon reflexes Achilles. No obvious clonus. Full-thickness wound noted to the medial left ankle along the course of the great saphenous vein with a mixed fibrogranular base. No overt signs of infection such as erythema malodor or purulent drainage warmth. There is some pain to the wound and periwound area. Musculoskeletal muscular strength full to bilateral lower extremity compartments. No wounds forming deformities noted. No sign DVT. Const alert and oriented x3 Debridement Note Debridement Note Post-Debridement Measurements and Additional Note: Post-Debridement Measurements/Treatment - Nurse 1 - General Ulcer Assessment Start: 10/03/23 08:28 Freq: Status: Active Protocol: .LOWEXT Activity Type Activity Date Activity User E-sign Co-sign Detail Recorded Client Recorded Date Recorded By Document 10/03/23 09:02 Desktop 10/03/23 09:17 RB 10/03/23 09:02 - Today's Visit Information Type of service Initial Visit Arrival Mode Ambulatory Transfer Assistance None Patient Identification Verified (Name & Yes ) Patient Requires Transmission-Based No Precautions Height and Weight Height 6 ft Weight 106.141 kg Weight in Pounds 234.0 lbs Body Mass Index (BMI) 31.7 BMI Classification Obese BSA - Morris 2.28 Vital Signs Temperature (97.8 F-99.1 F) 97 F L Temperature Source Temporal Pulse Rate (60-100) 67 Pulse Location Monitor Respiratory Rate (12-18) 18 Respiratory rate source Observation Blood Pressure (90/60-120/80) 168/94 H Blood Pressure Mean 118 Source Monitor Position Semi-Fowlers Blood Pressure Location Left Arm Pain Scale: 0-10 Numeric Is Patient Pain Free? Yes Lower Extremity Assessment/ Foot Assessment/ Toe Nail Assessment Right -Posterior Tibial Palpable Yes -Posterior Tibial Doppler Multiphasic -Dorsalis Pedis Palpable Yes -Dorsalis Pedis Doppler Multiphasic -Hair Growth on Legs Yes -Hair Growth on Toes No -Temperature of Extremity Cool -Capillary Refill Greater than 3 Seconds -Dependent Rubor No -Blanched when Elevated No -Lipodermatosclerosis No -Other Deformity No -Prior Foot Ulcer No -Charcot Joint No -Prior Amputation No -Thick No -Discolored No -Deformed No -Improper Length & Hygeine Yes Left -Posterior Tibial Palpable No -Posterior Tibial Doppler Monophasic -Dorsalis Pedis Palpable No -Dorsalis Pedis Doppler Monophasic -Extremity Color Hemosiderin -Hair Growth on Legs Yes -Hair Growth on Toes No -Temperature of Extremity Cool -Capillary Refill Greater than 3 Seconds -Dependent Rubor No -Blanched when Elevated No -Lipodermatosclerosis No -Other Deformity No -Prior Foot Ulcer No -Charcot Joint No -Prior Amputation No -Thick No -Discolored No -Deformed No -Improper Length & Hygeine Yes Neuropathy Assessment Feet - Top Side and Bottom <Entered> (a) Communication Assessment Preferred language [place] Tongue Carrier Required No Able to Read Yes Able to Write Yes Communication Tools None Caregiver Communication Skills No Impairment Impairment Right Hearing Abillity Normal Left Hearing Abillity Normal Visual Assistive Devices Glasses Teaching Assessment Preferences Verbal,Written, Demonstration Barriers to Learning None Readiness To Learn Excellent Willingness to Engage in Self Management High Activies Readiness to Engage in Self Management High Activities Anxiety Level Calm Cooperation Cooperative Perception Coherent Interest in Health Problem Asks Questions Education Importance Acknowledges Need Does Patient Smoke tobacco or other No substances Smoking Status Former smoker Is Patient Diabetic No Functional Assessment Recent Decline in Ability to Perform Denies Any Declines Assistive Device With Patient No Culture/Presybeterian/Managed Services Consultant Cultural/Presybeterian Needs that may affect No Treatment Plan Would you allow our hospital recruiter coordinator to No meet you for the purpose of spiritual/ emotional support? Managed Services Consultant to contact place of sikhism No Teaching: Wound Center *Welcome to the Wound Center -Person Taught Patient -Teaching Method Discussion, Demonstration -Response to teaching Verbalize understanding (a) 1 - + throughout WC - Nurse 1 - General Ulcer Measurement Start: 10/03/23 08:28 Freq: Status: Active Protocol: Activity Type Activity Date Activity User E-sign Co-sign Detail Recorded Client Recorded Date Recorded By Document 10/03/23 09:02 RB Desktop 02/06/24 09:17 RB 10/03/23 09:02 Wound Center Nurse 1 1. LLE -Combined with other wound No -Current Size (cm) - Length 6.5 -Current Size (cm) - Width 4.5 -Current Size (cm) - Depth 0.2 -Total Square Cm 29.25 -Photo Taken Yes -Tunneling No -Undermining/Tunneling No -Circular Undermining No -Exudate Amt Medium -Exudate Type Serosanguineous -Wound Margin Distinct, Outline Attached -Granulation Amt Medium (34-66%) -Granulation Quality Kersey -Slough/Fibrin Yes -Necrosis Amt Medium (34-66%) -Necrotic Tissue Type Adherent Slough -Structure Exposed N/A -Texture (Astrid-wound Skin Appearance) Assessed -Moisture (Astrid-wound Skin Appearance) Assessed -Color (Astrid-wound Skin Appearance) Assessed, Hemosiderin Staining -Temperature (Astrid-wound Skin No Abnormality Appearance) (Pt Warm) -Tenderness on Palpation (Astrid-wound No Skin Appearance) -Ulcer Cleansing Wound Cleanser -Foul Odor after Cleansing No -Anesthetic Used 5% Lidocaine Gel Lower Limb Edema Present Yes Right Calf (cm) 41.5 Right Ankle (cm) 24.5 Left Calf (cm) 42 Left Ankle (cm) 24.2 - Nurse 2 - General Ulcer CM Notes Start: 10/03/23 08:28 Freq: Status: Active Protocol: Activity Type Activity Date Activity User E-sign Co-sign Detail Recorded Client Recorded Date Recorded By Document 10/03/23 09:45 Laptop 10/03/23 09:49 10/03/23 09:45 Wound Center Nurse 2 1. LLE -Time 09:48 -Correct Patient Yes -Correct Side, Site, Position Yes -Correct Procedure Yes -Procedure Performed Yes -Type of Procedure Debridement -Clinical Debridement Subcutaneous -Tissue Removed Dermis -Post Debridement (cm) - Length 6.0 -Post Debridement (cm) - Width 4.5 -Post Debridement (cm) - Depth 0.2 -Total Square (Post) (cm) 27.00 -Area of Debridement (cm) - Length 6.0 -Area of Debridement (cm) - Width 4.5 -Total Square (Area) (cm) 27.00 -Tunneling No -Undermining/Tunneling No -Circular Undermining No -Wound/Ulcer Outcome Not Healed -Ulcer Cleansing Rinsed/ Irrigated with Saline -Foul Odor after Cleansing No -Bioengineered Tissue No -Bleeding Controlled with Pressure -Treatment Response Procedure Tolerated Well -Offloading No -Debridement - Subq, 1st 20sq cm Yes -Debridement, SubQ, ea addt'l 20sq cm 1 or part thereof Pain Scale: 0-10 Numeric Is Patient Pain Free? Yes Assessment/Plan Assessment/Plan (1) Venous insufficiency (chronic) (peripheral): CODE(S): I87.2 - Venous insufficiency (chronic) (peripheral) PLAN: Exam performed Neurovascular status intact, will consider arterial studies if there are any delays in healing Today left lower extremity wound was excisionally debrided down to including level of subcutaneous tissue of all nonviable tissue using a 5 mm dermal curette. Topical anesthesia was used. Pre and postdebridement measurements documented nursing notes. Patient tolerated procedure well. Hemostasis obtained with light compression. Wound was flushed with copious amounts normal sterile saline, swab culture taken Prescription for doxycycline and ciprofloxacin Today dressing was performed with Adaptic silver alginate dry sterile dressing and 3M compression. This will be changed once a week via nursing care visit. Will consider advanced wound care grafting pending any failures and local wound care Next week we will plan for more aggressive debridement under local and anesthesia with Misonix hydrodebrider Patient to follow-up in 1 week (2) Non-pressure chronic ulcer of left ankle with fat layer exposed: CODE(S): L97.322 - Non-pressure chronic ulcer of left ankle with fat layerexposed 10/03/23 0959 <Electronically signed by Nick Forbes DPM> Cosigner Signature (if applicable): CC: ~ Signed [facility] Work Phone: 1(781) 509-282110-25-2023 Discharge summary Author Katlyn Witt [facility] June 21, 2023 6:07pm Note Date/Time June 21, 2023 4 :01pm [facility] Medical Records Department [address] [place] [address] Emergency Department Summary 06/21/23 MR#: [id number] Acct: [id number] Name: ABDOUL ALICEA Rep #:[id number] : 1950 72 From: Katlyn Maldonado PCP: Dr. Katlyn Lantigua MD Status:REG ER Location: ED HPI History of Present Illness Chief Complaint: Laceration Informant: patient Onset/Context/Timing Onset: Today Context: Sudden Onset Timing: Continuous Quality: Dull Location: Left lower leg Worsened by: Ambulation Relieved by: Nothing Narrative Narrative: Patient presents with left leg laceration that occurred today. Patient was cutting firewood when one of the logs rolled and hit him in his left leg. Patient states there was a large amount of bleeding initially. Patient states he is able to wrap it and slow the bleeding down. Patient states his pain is worse with ambulation. Patient denies any paresthesias or weakness. Patient isunsure of his last tetanus. Patient denies any other injuries. [facility] Medical History Alcohol use Ambulates with cane Arthritis Back pain Bronchiectasis Cancer COVID-19 Former smoker Gastric reflux History of echocardiogram History of edema History of IBS Hx of skin cancer, basal cell Pulmonary embolism Restless legs Shortness of breath on exertion Walker as ambulation aid Wears glasses Wears hearing aid Home Medications albuterol sulfate 90 mcg/actuation aerosol inhaler (Proventil HFA) 1 - 2 puff IHDAILY PRN SOB 10/19/16 [History Last Taken 08/01/22] budesonide-formoterol HFA 160 mcg-4.5 mcg/actuation aerosol inhaler (Symbicort) 1 puff inhalation BID breathing 10/19/16 [History Last Taken 08/01/22] pantoprazole 40 mg tablet,delayed release 40 mg PO DAILY gastric reflux 06/12/21[History Last Taken Unknown] tamsulosin 0.4 mg capsule 0.4 mg PO QHS PRN PRN Urinary Retention 06/12/21 [History Last Taken Unknown] diphenhydramine HCl 50 mg capsule 50 mg PO BID 06/20/22 [History Last Taken Unknown] guaifenesin 1,200 mg tablet, extended release 12 hr (Mucinex) 1,200 mg PO BID 06/20/22 [History Last Taken Unknown] meloxicam 15 mg tablet 15 mg PO DAILY 06/20/22 [History Last Taken Unknown] pseudoephedrine HCl 120 mg tablet,extended release (Sudafed 12 Hour) 120 mg PO DAILY 06/20/22 [History Last Taken Unknown] Restful Legs 1 - 2 tab PO/SL Q4H PRN restless legs 08/02/22 [History Last Taken Unknown] acetaminophen 500 mg tablet 1,000 mg (2 x 500 mg) PO Q8 30 days #180 tabs 08/02/22 [Rx Last Taken Unknown] oxycodone 5 mg tablet 5 - 10 mg (1 - 2 x 5 mg) PO Q4H PRN PRN Pain Score 4-10 7 days #84 tabs 08/02/22 [Rx Last Taken Unknown] rivaroxaban 10 mg tablet (Xarelto) 10 mg PO DINNER Postop DVT prophylaxis 30 days #30 tabs 08/02/22 [Rx Last Taken Unknown] Allergy/AdvReac Type Severity Reaction Status Date / Time gabapentin Allergy Rash Verified 06/21/23 14:45 Family History Other Colon cancer Heart disease Surgical History History of back surgery History of hip surgery History of hydrocelectomy Hx of colonoscopy Social History Smoking Status: Former smoker ROS ROS ED Constitutional Constitutional ED: Denies chills or fever(s) Eyes Eyes: Denies blurry vision or change in vision ENT ENT ED: Denies rhinorrhea or sore throat Cardiovascular Cardiovascular: Denies chest pain or palpitations Respiratory/Chest Respiratory/Chest: Denies cough or dyspnea Gastrointestinal Gastrointestinal: Denies nausea or vomiting Genitourinary Genitourinary ED: Denies dysuria or hematuria Musculoskeletal Musculoskeletal: Denies back pain or neck pain Integumentary Denies abscess or rash Neurologic Neurologic: Denies headache(s) or weakness Allergic/Immunologic Allergic/Immunologic ED: Denies mouth swelling or urticaria EXAM Physical Exam Const Vital Signs: 06/21/23 14:42 Temperature 98 F Temperature Source Temporal Pulse Rate 83 Respiratory Rate 16 Blood Pressure 170/101 H Blood Pressure Mean 124 Pulse Ox 98 Oxygen Delivery Method Room Air Positive well nourished and well developed General Appearance ED: well developed and NAD HEENT Reports moist mucous membranes Neck supple and no JVD Extremity Extremity Narrative: There is a 13 cm full-thickness V-shaped laceration over the medial aspect of the left distal leg and ankle area. There is moderate gapping of the wound margins. There are no foreign bodies noted. There is no bony crepitance or step-off. There is no deformity noted. There is full range of motion of the left ankle and lower leg. Pedal pulse was 2+. Sensation was intact to light touch in all digits. Capillary refill was less than 2 seconds in all digits. Neuro oriented x3, CN's II-XII intact bilaterally and no sensory deficits noted Sensorium / Orientation: alert Motor Exam: strength 5/5 throughout Psych mental status grossly normal MDM MDM MDM Narrative Medical decision making narrative: The wound was cleaned and irrigated with copious amounts of normal saline. The wound was anesthetized with 1% lidocaine with epinephrine locally. The wound was closed with 5 simple interrupted #4-0 Vicryl subcutaneous and 8 horizontal mattress #4- 0 Ethilon sutures under sterile technique. Patient tolerated the procedure well. Bacitracin dressing was applied. Patient was given tetanus booster here. Patient was instructed to continue using Neosporin ointment to the area. Patient was instructed to keep his leg elevated. Patient was instructed to follow-up with his primary care physician in 7 days for wound recheck and suture removal. Patient understood and was agreeable with the plan. All questions were answered. Procedures Lacerations Left leg: Length: 13 cm Depth: Sub Q Shape: Flap (V shaped) Prep: Sterile Conditions and Chlorhexadine Laceration repair: Foreign material removed, Irrigated, Lidocaine with epi, Local, Skin sutures (8 horizontal mattress sutures using 4-0 Ethilon), Subcutaneous sutures (5 simple interrupted #4-0 Vicryl sutures) and Wound explored Irrigated (ml): 150 Discharge Plan Triage Chief Complaint: Laceration ED Provider: Katlyn iWtt Dx/Rx/DC Orders Clinical Impression: Laceration of left lower leg, Elevated blood pressure reading Instructions: ED Laceration: All Closures Prescriptions: No Action albuterol sulfate [Proventil HFA] 6.7 GM HFA aerosol inhaler 1 - 2 puff IH DAILY PRN (Reason: SOB) budesonide-formoterol [Symbicort] 1 INHALER inhaler 1 puff inhalation BID pantoprazole 40 mg Tablet,Delayed Release (Dr/Ec) 40 mg PO DAILY tamsulosin 0.4 mg Capsule 0.4 mg PO QHS PRN PRN (Reason: Urinary Retention) diphenhydramine HCl 50 mg Capsule 50 mg PO BID meloxicam 15 mg tablet 15 mg PO DAILY Patient Comments: TAKE 1 TABLET BY MOUTH ONCE DAILY WITH FOOD pseudoephedrine HCl [Sudafed 12 Hour] 120 mg Tablet Extended Release 120 mg PO DAILY Mucinex 1,200 mg Tablet Extended Release 12hr 1,200 mg PO BID acetaminophen 500 mg Tablet 1,000 mg PO Q8 30 Days Qty: 180 0RF oxycodone 5 mg Tablet 5 - 10 mg PO Q4H PRN PRN (Reason: Pain Score 4-10) 7 Days Qty: 84 0RF Rx Instructions: 1 or 2 p.o. every 4 hours as needed severe pain Xarelto 10 mg Tablet 10 mg PO DINNER 30 Days Qty: 30 0RF Restful Legs 1 - 2 tab PO/SL Q4H PRN (Reason: restless legs) Primary Care Provider: Katlyn Lantigua Referrals: Katlyn Lantigua MD [Primary Care Provider] - 7 Days for suture removal Disposition Disposition: Home, Self Care What to do if you have Problems For any increased pain, shortness of breath, bleeding, nausea or vomiting, chestpain, or any unexpected problems, contact your Primary Care Provider. Call [facility] ([phone]) or report to the closest Emergency Room. Call 911 if necessary. 06/21/231806 <Electronically signed by Katlyn Witt DO> Cosigner Signature (if applicable): CC: Dr. Katlyn Lantigua MD ~ Signed [facility] Work Phone: 1(107) 434-156701-05-2023 NoteHNO ID: [id number] Author: RT Chetna(R) Service: Nuclear Medicine Author Type: Technologist Type: Progress Notes Filed: 09/01/2022 11:34 AM Note Text: Radiology Service Progress Note PATIENT NAME: Abdoul Alicea DATE OF SERVICE: September 01, 2022 TIME: 11:29 AM PATIENT IDENTITY VERIFICATION COMPLETED USING TWO (2) IDENTIFIERS: Name and Date of confirmed by patient verbally. FALL SCREENING: Has the patient had 2 falls in the last year or 1 fall with injury or currently using an Ambulatory Assistive Device (Walker, Cane, Wheelchair, Crutches, etc.)? No PATIENT GENDER DATA: Male PATIENT RELEVANT IMPLANT DATA REVIEWED: Not Applicable RADIOLOGY DEPARTMENT: General X-ray: Exam(s) Completed: Chest X-Ray PERIPHERAL IV DATA: Not applicable SIGNED BY: RT Chetna(R) September 01, 2022 11:29 [facility]01-05-2023 NoteHNO ID: [id number] Author: Jossie Packer APRN.DATABASE REPORT WRITER Service: ? Author Type: Nurse Practitioner Type: Progress Notes Filed: 09/01/2022 1:12 PM Note Text: This note was created using Minte[employer]. Subjective Abdoul Alicea is a 71 year old male. 71 year old male with PMH GERD presents for complaints of cough and chest congestion. Acute onset 5 weeks ago + cough Endorses feels moist but states unable to produce sputum. Denies accompanying URI sx Denies fever or chills Denies CP. Denies hemoptysis. Denies dyspnea. Denies abdominal pain. Denies N/V/D Of note, he had a hip replacement 5 weeks ago . Quit smoking 35 years ago. The history is provided by the patient. No speech language assistant was used. Cough This is a new problem. The current episode started more than 1 week ago. The problem occurs constantly. The problem has been gradually worsening. The cough is Non-productive. There has been no fever. Associated symptoms include shortness of breath (with coughing and winded with activity). Pertinent negatives include no chest pain, no chills, no sweats, no weight loss, no ear congestion, no ear pain, no headaches, no rhinorrhea, no sore throat, no myalgias, no wheezing and no eye redness. He has tried nothing for the symptoms. The treatment provided no relief. He is not a smoker. His past medical history does not include bronchitis, pneumonia, bronchiectasis, COPD, emphysema or asthma. No past medical history on file. No past surgical history on file. ALLERGIES Gabapentin MEDICATIONS albuterol HFA (PROVENTIL HFA, VENTOLIN HFA) 90 mcg/actuation inhaler Inhale as instructed. pantoprazole DR (PROTONIX) 40 mg tablet Take 40 mg by mouth. meloxicam (MOBIC) 15 mg tablet Take 15 mg by mouth. azithromycin (ZITHROMAX) 250 mg tablet Take 2 tablets by mouth once daily for 1 day, THEN 1 tablet once daily for 4 days. amoxicillin-clavulanic acid (AUGMENTIN) 875-125 mg per tablet Take 1 tablet by mouth twice daily for 5 days. benzonatate (TESSALON PERLES) 100 mg capsule Take 1 capsule by mouth three times daily as needed for cough. No family history on file. Social History Tobacco Use Smoking status: Former Types: Cigarettes Smokeless tobacco: Never Substance Use Topics Alcohol use: Never Drug use: Never Review of Systems Constitutional: Positive for fatigue. Negative for chills, fever and weight loss. HENT: Positive for congestion. Negative for ear pain, rhinorrhea and sore throat. Eyes: Negative for pain, discharge, redness and itching. Respiratory: Positive for cough and shortness of breath (with coughing and winded with activity). Negative for apnea, choking, chest tightness and wheezing. Cardiovascular: Negative for chest pain. Gastrointestinal: Negative for abdominal pain, diarrhea, nausea and vomiting. Musculoskeletal: Negative for arthralgias, back pain and myalgias. Skin: Negative for color change, pallor, rash and wound. Allergic/Immunologic: Negative for environmental allergies, food allergies and immunocompromised state. Neurological: Negative for dizziness, facial asymmetry and headaches. Hematological: Negative for adenopathy. Does not bruise/bleed easily. Psychiatric/Behavioral: Negative for agitation and behavioral problems. Objective BP 128/74 Pulse 78 Temp 37.1 ?C (98.8 ?F) (Tympanic) Resp 16 Wt 104.5 kg (230 lb 6.4 oz) SpO2 96% Physical Exam Vitals and nursing note reviewed. Constitutional: General: He is not in acute distress. Appearance: Normal appearance. He is not ill-appearing, toxic-appearing or diaphoretic. Comments: Elderly, well appearing male HENT: Head: Normocephalic and atraumatic. Right Ear: External ear normal. Left Ear: External ear normal. Nose: Nose normal. No congestion or rhinorrhea. Mouth/Throat: Mouth: Mucous membranes are moist. Pharynx: Oropharynx is clear. No oropharyngeal exudate or posterior oropharyngeal erythema. Eyes: General: Right eye: No discharge. Left eye: No discharge. Extraocular Movements: Extraocular movements intact. Conjunctiva/sclera: Conjunctivae normal. Pupils: Pupils are equal, round, and reactive to light. Cardiovascular: Rate and Rhythm: Normal rate and regular rhythm. Pulses: Normal pulses. Heart sounds: Normal heart sounds. No murmur heard. No friction rub. No gallop. Pulmonary: Effort: Pulmonary effort is normal. No respiratory distress. Breath sounds: Normal breath sounds. No stridor. No wheezing, rhonchi or rales. Chest: Chest wall: No tenderness. Abdominal: General: Abdomen is flat. There is no distension. Palpations: Abdomen is soft. There is no mass. Tenderness: There is no abdominal tenderness. There is no guarding or rebound. Hernia: No hernia is present. Musculoskeletal: General: No swelling, tenderness, deformity or signs of injury. Normal range of motion. Cervical back: Normal range of motion and neck supple. (more content not included)...[facility]01-05-2023 History of Present illness Narrative* Molly Long RT(R) - 09/01/2022 11:20 AM EST Radiology Service Progress Note PATIENT NAME: Abdoul Alicea DATE OF SERVICE: September 01, 2022 TIME: 11:29 AM PATIENT IDENTITY VERIFICATION COMPLETED USING TWO (2) IDENTIFIERS: Name and Date of confirmedby patient verbally. FALL SCREENING: Has the patient had 2 falls in the last year or 1 fall with injury or currently using an Ambulatory Assistive Device (Walker, Cane, Wheelchair, Crutches, etc.)? No PATIENT GENDER DATA: Male PATIENT RELEVANT IMPLANT DATA REVIEWED: Not Applicable RADIOLOGY DEPARTMENT: General X-ray: Exam(s) Completed: Chest X-Ray PERIPHERAL IV DATA: Not applicable SIGNED BY: RT Chetna(R) September 01, 2022 11:29 AM [facility]+Reason for visit Narrative* Chief Complaint LEG SWELLING COVID-19- CHEST XRAY [facility] Work Phone: Evaluation noteNo assessment information available [facility] Work Phone: Evaluation note* Diagnosis Onset Date Resolution Status S/P total left hip arthroplasty acute [facility] Work Phone: Evaluation note* Diagnosis Onset Date Resolution Status 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 Venous insufficiency (chronic) (peripheral) chronic [facility] Work Phone: Evaluation note* Diagnosis Onset Date Resolution Status 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 Venous insufficiency (chronic) (peripheral) chronic 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 Venous insufficiency (chronic) (peripheral) chronic [facility] Work Phone: Evaluation note* Diagnosis Onset Date Resolution Status 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 Venous insufficiency (chronic) (peripheral) chronic 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 Venous insufficiency (chronic) (peripheral) chronic 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 Venous insufficiency (chronic) (peripheral) chronic [facility] Work Phone: Evaluation note* Diagnosis Acute cough documented in this encounter [facility] Discharge instructions Additional Instructions [facility] Phone: Reason for referral (narrative)No reason for referral information availableWUniversity [facility] Work Phone: Family History No Family History Records Found Relationship Condition Age at Onset Recorded Date/T angelina Not Specified Malignant neoplasm of colon Unknown Cardiac disease Unknown Advance Directives No Advanced Directives Records Found Advance Directive Response Recorded Date/ Time Living Will Yes June 11 10:57pm Power of Manager [employer] Yes June 11, 2021 10:57pm Advance Directive Response Recorded Date/ Time Living Will Yes June 20 3:26pm Power of Manager [employer] Yes June 20, 2022 3:26pm Advance Directive Response Recorded Date/ Time Name of Medical Power of Manager [employer] Anette Celestet August 01, 2022 4:36pm Living Will Yes August 01 4:36pm Power of Manager [employer] Yes August 01, 2022 4:36pm Advance Directive Response Recorded Date/ Time Name of Medical Power of Manager [employer] Anette Alicea August 01, 2022 5:36pm Living Will Yes August 01 5:36pm Power of Manager [employer] Yes August 01, 2022 5:36pm Advance Directive Response Recorded Date/ Time Living Will No June 21 3:41pm Power of Manager [employer] No June 21, 2023 3:41pm Advance Directive Response Recorded Date/ Time Living Will No June 21 2:41pm Power of Manager [employer] No June 21, 2023 2:41pm Advance Directive Response Recorded Date/ Time Living Will No September 03 9:09am Do you have a Healthcare Power of Manager [employer]? No September 03, 2024 9:09am Chief Complaint and Reason for Visit Chief Complaint D DIMER Chief Complaint PREPROCEDURAL CV EXA MINATION PREPROCEDURAL CV EXAMINATION Chief Complaint PREPROCEDURAL CV EXA MINATION PREPROCEDURAL CV EXAMINATION lt TOTAL HIP Reason for Visit S/P total left hip a rthroplasty Chief Complaint lt TOTAL HIP BILAT REDNESS/SWELLING, R/O DVT Reason for Visit S/P total left hip a rthroplasty Chief Complaint LACERATION Chief Complaint WOUND Reason for Visit Non-pressure chronic ulcer of left ankle with fat layer exposed Venous insufficiency (chronic) (peripheral) Chief Complaint WOUND WOUND Reason for Visit Non-pressure chronic ulcer of left ankle with fat layer exposed Venous insufficiency (chronic) (peripheral) Non-pressure chronic ulcer of left ankle with fat layer exposed Venous insufficiency (chronic) (peripheral) Chief Complaint WOUND WOUND WOUND Reason for Visit Non-pressure chronic ulcer of left ankle with fat layer exposed Venous insufficiency (chronic) (peripheral) Non-pressure chronic ulcer of left ankle with fat layer exposed Venous insufficiency (chronic) (peripheral) Non-pressure chronic ulcer of left ankle with fat layer exposed Venous insufficiency (chronic) (peripheral) Chief Complaint Admit Date fall September 03, 2024 7: 57am R HAND INJURY September 10, 2024 1 0:50am 1 WK F/U-STITCH REMOVAL September 17 10:57am Reason for Visit Admit Date Fall September 10, 2024 1 0:50am Hand laceration September 10, 2024 1 0:50am Hand laceration September 17, 2024 1 0:57am Summary Purpose Additional Source Comments Goals (unrecognized section and content) Goals may be documented in a n alternate sectionGoals may be documented in an alternate sectionGoals may be documented in an alternate sectionGoals may be documented in an alternate sectionGoals may be documented in an alternate sectionGoals may be documented in an alternate sectionGoals may be documented in an alternate sectionGoals may be documented in an alternate sectionGoals may be documented in an alternate sectionGoals may be documented in an alternate section (unrecognized sect ion and content) No Status Records FoundNo Status Records Found INFORMATION SOURCE (unrecogn ized section and content) DATE CREATED AUTHOR 09/01/2022 [facility] DATE CREATED AUTHOR AUTHOR'S ORGANIZ ATION 12/03/2024 [facility] Care Teams (unrecognized sec tion and content) Team Status: Active Member Role Status Dates Dr. Jo Gallego MD Family Provider Active Dr. Katlyn Lantigua MD Primary Care Provider Active Team Status: Active Member Role Status Dates Dr. Katlyn Lantigua MD Primary Care Provider Active Dr. Sharan Madrid MD Attending Provider Active Dr. Des Sellers DO Referring Provider Active Team Status: Inactive Member Role Status Dates Dr. Katlyn Lantigua MD Primary Care Provider Active Dr. Des Sellers DO Admit Provider, Attending Provider, Referring Provider Active Team Status: Inactive Member Role Status Dates Dr. Katlyn Lantigua MD Primary Care Provider Active RAYMOND TrejoC Attending Provider, Referring Pr ovider Active Team Status: Inactive Member Role Status Dates Dr. Katlyn Lantigua MD Primary Care Provide r, Attending Provider, Referring Provider Active Team Status: Active Member Role Status Dates Dr. Katlyn Lantigua MD Primary Care Provider Active Dr. Katlyn Lozano MD Attending Provider, Referring Pro vider Active Team Status: Active Member Role Status Dates Dr. Katlyn Lantigua MD Primary Care Provider Active SHARAN BELTRAN Attending Provider, Referring Provider A ctive Team Status: Inactive Member Role Status Dates Dr. Katlyn Lantigua MD Primary Care Provider Active Dr. Diomedes Latham MD Attending Provider, Referrin g Provider Active Team Status: Inactive Member Role Status Dates Dr. Katlyn Lantigua MD Primary Care Provider Active SHARAN BLETRAN Attending Provider, Referring Provider A ctive Team Status: Inactive Member Role Status Dates Dr. Katlyn Lantigua MD Primary Care Provider Active Dr. Katlyn Schwiger , DO Emergency Provider Active Team Status: Inactive Member Role Status Dates Dr. Katlyn Lantigua MD Primary Care Provider Active Dr. Katlyn Witt DO Attending Provider, Emergency P rovider Active Team Status: Inactive Member Role Status Dates Dr. Katlyn Lantigua MD Primary Care Provider, Referring P rovider Active MARA CordovaM Attending Provider Active [employer] Relationship Specialty Start Date End Date Katlyn Lantigua MD [address] [place] [id number] PCP - General Family Medicine 10/04/21 Team Status: Inactive Member Role Status Dates Dr. Katlyn Lantigua MD Primary Care Provider Active Start: September 03, 2024 End: September 03, 2024 Otoniel Ashraf MD Attending Provider Active Star t: September 03, 2024 End: September 03, 2024 Otoniel Ashraf MD Emergency Provider Active Star t: September 03, 2024 End: September 03, 2024 Team Status: Inactive Member Role Status Dates Dr. Katlyn Lantigua MD Primary Care Provider Active Start: September 10, 2024 End: September 10, 2024 Dr. Katlyn Lantigua MD Referring Provider Active St art: September 10, 2024 End: September 10, 2024 Dr. Diomedes Hemphill MD Attending Provider Active Start: September 10, 2024 End: September 10, 2024 Team Status: Inactive Member Role Status Dates Dr. Katlyn Lantigua MD Primary Care Provider Active Start: September 17, 2024 End: September 17, 2024 Dr. Katlyn Lantigua MD Referring Provider Active St art: September 17, 2024 End: September 17, 2024 Dr. Diomedes Hemphill MD Attending Provider Active Start: September 17, 2024 End: September 17, 2024 Team Status: Inactive Member Role Status Dates Dr. Katlyn Lantigua MD Primary Care Provider Active Start: November 26, 2024 End: November 26, 2024 Dr. Katlyn Lantigua MD Attending Provider Active St art: November 26, 2024 End: November 26, 2024 Source Comments (unrecognize d section and content) In the event this informatio n is protected by the Federal Confidentiality of Alcohol and Drug Abuse Patient Records regulations: The Federal rules restrict any use of the information to criminally investigate or prosecute any alcohol or drug abuse patient.[facility] FOR RECORDS PERTAINING TO PATIENTS WHO ARE OR HAVE BEEN ENROLLED IN A CHEMICAL DEPENDENCY/SUBSTANCEABUSE PROGRAM, SOME INFORMATION MAY BE OMITTED. This clinical summary was aggregated from multiple sources. Caution should be exercised in using it in the provision of clinical care. This summary normalizes information from multiple sources, and as a consequence, information in this document may materially change the coding, format and clinical context of patient data. In addition, data may be omitted in some cases. CLINICAL DECISIONS SHOULD BE BASED ON THE PRIMARY CLINICAL RECORDS. [facility] [employer] [facility]. provides no warranty or guarantee of the accuracy or completeness of information in this document.
== END | disposition home or self-care (01) ==
LOC: MFPLAB 15:32
PROVIDERS: PCP Family Medicine; Referring Provider Family Medicine; Visit Provider Family Medicine
DX: I27.20 Pulmonary hypertension, unspecified (principal); I10 Essential (primary) hypertension
CPT/HCPCS: 36415; 80053; 82043; 82570; 85025

== ENCOUNTER 2025-05-27 10:15 | Outpatient (RCR) | payer MEDICARE, OTHER, SELFPAY ==
[2025-05-21 10:10] VITALS: BP 166/105; PULSE 66; RESP 18; TEMP 36.6
--- NOTE | 2025-05-21 12:58 | PCM.WC.HP ---
History of Present Illness Date of Service: 05/21/25 Chief Complaint: left lower garza wound from April 28 History of Wound: 74-year-old white male who likes to cut his own trees and do his own yard work. Has had history of doing this before of getting tree branches cut on his legs. This 1 happened on April 28 and it still they are a little bit painful but looks like a slit in the skin but it had pretty much filled in with old blood. That will be debrided out and treatment will then again start. Patient has been cleaning it with hydrogen peroxide there is no sign of infection he has had no fever or chills and he continues to walk on it even though it does not hurt. No real hear history of some stasis dermatitis and venous insufficiency but other than that he is in good health. [facility], [facility] Medical History Gastric reflux Wears hearing aid Wears glasses Cancer Alcohol use Walker as ambulation aid Ambulates with cane Arthritis Pulmonary embolism Restless legs Back pain History of IBS Former smoker Shortness of breath on exertion History of edema History of echocardiogram Hx of skin cancer, basal cell Bronchiectasis COVID-19 Home Medications Medication Instructions Recorded Last Taken Type albuterol sulfate 90 mcg/actuation 1 - 2 puff IH DAILY PRN SOB 10/19/16 08/01/22 History aerosol inhaler (Proventil HFA) budesonide-formoterol HFA 160 1 puff inhalation BID breathing 10/19/16 08/01/22 History mcg-4.5 mcg/actuation aerosol inhaler (Symbicort) guaifenesin 1,200 mg tablet, 1,200 mg PO BID 06/20/22 Unknown History extended release 12 hr (Mucinex) acetaminophen 500 mg tablet 1,000 mg (2 x 500 mg) PO Q8 30 08/02/22 Unknown Rx days #180 tabs ascorbic acid (vitamin C) 1,000 mg 1,000 mg PO DAILY 10/03/23 Unknown History tablet,extended release (C Complex) cholecalciferol (vitamin D3) 325 325 mcg PO QWEEK 10/03/23 Unknown History mcg (13,000 unit) capsule cyanocobalamin (vitamin B-12) 1,000 mcg PO DAILY 10/03/23 Unknown History 1,000 mcg tablet (Vitamin B-12) ferrous sulfate 325 mg (65 mg 325 mg PO DAILY 10/03/23 Unknown History iron) tablet (FeroSul) diphenhydramine HCl 50 mg capsule 50 mg PO BID PRN allergy symptoms 01/24/24 Unknown History aspirin 81 mg capsule 81 mg PO DAILY 05/21/25 Unknown History telmisartan 20 mg tablet 20 mg PO DAILY 05/21/25 Unknown History Allergy/AdvReac Type Severity Reaction Status Date / Time gabapentin Allergy Rash Verified 09/17/24 11:05 Family History Other Colon cancer Heart disease Surgical History Hx of colonoscopy History of hydrocelectomy History of back surgery History of hip surgery Social History Smoking Status: Never smoker ROS Constitutional Constitutional: Reports systems reviewed and no addt'l complaints, except as documented Eyes Eyes: Reports systems reviewed and no addt'l complaints, except as documented ENT HEENT: Reports systems reviewed and no addt'l complaints, except as documented Cardiovascular Cardiovascular: Reports systems reviewed and no addt'l complaints, except as documented Respiratory/Chest Respiratory/Chest: Reports systems reviewed and no addt'l complaints, except as documented Gastrointestinal Gastrointestinal: Reports systems reviewed and no addt'l complaints, except as documented Genitourinary Genitourinary: Reports systems reviewed and no addt'l complaints, except as documented Musculoskeletal Musculoskeletal: Reports systems reviewed and no addt'l complaints, except as documented Integumentary Integumentary: Reports systems reviewed and no addt'l complaints, except as documented and other Details: And now open wound on his left lower garza area from a tree branch bleeding on it under control positive slight depth. Neurologic Neurologic: Reports systems reviewed and no addt'l complaints, except as documented Psychiatric Psychiatric: Reports systems reviewed and no addt'l complaints, except as documented Endocrine Endocrinology: Reports systems reviewed and no addt'l complaints, except as documented Hematologic/Lymphatic Hematologic/Lymphatic: Reports systems reviewed and no addt'l complaints, except as documented Allergic/Immunologic Allergic/Immunologic: Reports systems reviewed and no addt'l complaints, except as documented Vital Signs Vital Signs Vital Signs: 05/21/25 10:10 Temperature 97.9 F Temperature Source Temporal Pulse Rate 66 Respiratory Rate 18 Blood Pressure 166/105 H Blood Pressure Mean 125 Blood Pressure Source Monitor Blood Pressure Position Semi-Fowlers Blood Pressure Location Left Arm Physical Exam Const oriented x3 General Appearance: cooperative Exam Limitations: no limitations HEENT normocephalic Face and Sinus: normal facial exam Eyes General Eye: normal appearance of both eyes Neck full ROM Resp normal respiratory effort Effort and Inspection: able to speak in complete sentences Cardio regular rhythm Palpation: normal PMI Rate: regular rate Rhythm: regular rhythm GI Palpation: soft Extremity General Extremity: normal exam except as noted Skin Trauma: puncture Wounds: wounds noted Wound Narrative: Slit type puncture wound to the left lower graza area from tree branch from cutting trees. No sign of infection positive depth Neuro oriented x3 Psych Appearance: grossly normal Speech: normal speech Thought Content: normal thought content Judgement: judgement good Debridement Note Debridement Note Wound debrided: Puncture wound left leg Type of Debridement: Excisional debridement Anesthesia Used: 5% Lidocaine Gel Depth: in the subcutaneous layer Percentage of wound debrided: 100 Instrument Used: 3mm curette Tissue Removed: Fibrin Severity: Fat Layer Exposed Amount of bleeding with debridement: Mild Bleeding Controlled with: Pressure and Compression and gauze Patient tolerated procedure: Patient did not tolerate procedure well Post-Debridement Measurements and Additional Note: Post-Debridement Measurements/Treatment [facility] Nurse 1 - General Ulcer Assessment Start: 05/21/25 10:10 Freq: Status: Active Protocol: .LOWCHERRYT Activity Type Activity Date Activity User E-sign Co-sign Detail Recorded Client Recorded Date Recorded By Document 05/21/25 10:10 [email or web address] 05/21/25 10:16 05/21/25 10:10 - Today's Visit Information Type of service Follow-up Visit (Physician/DISPATCHER MAINTENANCE ) Arrival Mode Ambulatory Transfer Assistance None Patient Identification Verified (Name & Yes ) Patient Requires Transmission-Based No Precautions Vital Signs Temperature (97.8 F-99.1 F) 97.9 F Temperature Source Temporal Pulse Rate (60-100) 66 Pulse Location Monitor Respiratory Rate (12-18) 18 Respiratory rate source Observation Blood Pressure (90/60-120/80) 166/105 H Blood Pressure Mean 125 Source Monitor Position Semi-Fowlers Blood Pressure Location Left Arm History Since Last Visit- (Skip if this is Patient's initial visit) Have you changed medications since your No last visit? Any new allergies or adverse reactions No Had a fall/change in ADL's that may No increase risk of falls Signs or symptoms of abuse and/or No neglect since last visit Have you been in the hospital since your No last visit? Has dressing in place as prescribed Yes Has compression in place as prescribed Yes Has offloadiing in place as prescribed N/A Experienced any changes in pain level or No management Left Footwear Regular Shoe Right Footwear Regular Shoe Pain Scale: 0-10 Numeric Is Patient Pain Free? Yes Communication Assessment Preferred language Macedonian [place] Required No Able to Read Yes Able to Write Yes Right Hearing Abillity Normal Left Hearing Abillity Normal Visual Assistive Devices Glasses Teaching Assessment Preferences Verbal,Written, Demonstration Barriers to Learning None Readiness To Learn Good Willingness to Engage in Self Management Med Activies Readiness to Engage in Self Management Med Activities Anxiety Level Calm Cooperation Cooperative Perception Coherent Interest in Health Problem Asks Questions Education Importance Acknowledges Need Does Patient Smoke tobacco or other No substances Smoking Status Never smoker Is Patient Diabetic No Functional Assessment Recent Decline in Ability to Perform Denies Any Declines Assistive Device With Patient No Culture/Anabaptist/Tour Director Cultural/Anabaptist Needs that may affect No Treatment Plan Would you allow our hospital preflight mechanic to No meet you for the purpose of spiritual/ emotional support? Tour Director to contact place of restorationist No Teaching: Wound Center *Welcome to the Wound Center -Person Taught Patient -Teaching Method Discussion, Demonstration -Response to teaching Verbalize Understanding WC - Nurse 1 - General Ulcer Measurement Start: 05/21/25 10:10 Freq: Status: Active Protocol: Activity Type Activity Date Activity User E-sign Co-sign Detail Recorded Client Recorded Date Recorded By Document 05/21/25 10:10 [email or web address] [id number] 05/21/25 10:16 RB 05/21/25 10:10 Wound Center Nurse 1 2. LLE -Combined with other wound No -Current Size (cm) - Length 0.1 -Current Size (cm) - Width 0.1 -Current Size (cm) - Depth 0.1 -Total Square Cm 0.01 -Photo Taken Yes -Epithelialization Medium 34-66% -Tunneling No -Undermining/Tunneling No -Circular Undermining No -Exudate Amt Small -Exudate Type Serosanguineous -Wound Margin Distinct, Outline Attached -Granulation Amt Small (1-33%) -Granulation Quality [place] -Slough/Fibrin Yes -Necrosis Amt Medium (34-66%) -Necrotic Tissue Type Adherent Slough -Structure Exposed N/A -Texture (Astrid-wound Skin Appearance) Assessed -Moisture (Astrid-wound Skin Appearance) Assessed -Color (Astrid-wound Skin Appearance) Assessed, Hemosiderin Staining -Temperature (Astrid-wound Skin No Abnormality Appearance) (Pt Warm) -Tenderness on Palpation (Astrid-wound No Skin Appearance) -Ulcer Cleansing Wound Cleanser -Foul Odor after Cleansing No -Anesthetic Used 5% Lidocaine Gel Lower Limb Edema Present Yes Right Calf (cm) 42 Right Ankle (cm) 26 Left Calf (cm) 41.5 Left Ankle (cm) 24.2 WC - Nurse 2 - General Ulcer CM Notes Start: 05/21/25 10:10 Freq: Status: Active Protocol: Activity Type Activity Date Activity User E-sign Co-sign Detail Recorded Client Recorded Date Recorded By Document 05/21/25 10:31 DS [id number] 05/21/25 10:33 DS 05/21/25 10:31 Wound Center Nurse 2 2. LLE -Time 10:31 -Correct Patient Yes -Correct Side, Site, Position Yes -Correct Procedure Yes -Procedure Performed Yes -Type of Procedure Debridement -Clinical Debridement Subcutaneous -Tissue Removed Subcutaneous -Post Debridement (cm) - Length 1.4 -Post Debridement (cm) - Width 0.2 -Post Debridement (cm) - Depth 0.2 -Total Square (Post) (cm) 0.28 -Area of Debridement (cm) - Length 1.4 -Area of Debridement (cm) - Width 0.2 -Total Square (Area) (cm) 0.28 -Tunneling No -Undermining/Tunneling No -Circular Undermining No -Wound/Ulcer Outcome Not Healed -Ulcer Cleansing Rinsed/ Irrigated with Saline -Foul Odor after Cleansing No -Bioengineered Tissue No -Bleeding Controlled with Pressure -Treatment Response Procedure Tolerated Well -Debridement - Subq, 1st 20sq cm Yes Pain Scale: 0-10 Numeric Is Patient Pain Free? Yes KIRSTY - Nurse 3 - General Ulcer D/C NN Start: 05/21/25 10:10 Freq: Status: Active Protocol: Activity Type Activity Date Activity User E-sign Co-sign Detail Recorded Client Recorded Date Recorded By Document 05/21/25 10:39 DS [id number] 05/21/25 10:51 DS 05/21/25 10:39 Wound Care Center Nurse 3 2. LLE -Primary Dressing Applied Aquacel Extra, Optilok 5x5 1/2 -Primary Dressing Covered/Secured with Dry Gauze, Secured with Tape -Aquacel Extra 1 -Optilok 5x5 1/2 1 LLE -Tubular Bandage Double Layer -Size of Tubigrip Used Size E -Size E ($) 2 Pain Scale: 0-10 Numeric Is Patient Pain Free? Yes WC - Visit Discharge Discharge Condition Stable Ambulatory Status Ambulatory Transportation Private Auto Assessment/Plan Assessment/Plan (1) Stasis dermatitis of left lower extremity due to peripheral venous hypertension: CODE(S): I87.322 - Chronic venous hypertension (idiopathic) with inflammation of left lower extremity (2) Puncture wound of left lower leg: CODE(S): S81.832A - Puncture wound without foreign body, left lower leg, initial encounter QUALIFIERS: Encounter type: initial encounter Qualified Code(s): S81.832A - Puncture wound without foreign body, left lower leg, initial encounter (3) Non-pressure chronic ulcer of left ankle with fat layer exposed: CODE(S): L97.322 - Non-pressure chronic ulcer of left ankle with fat layer exposed PLAN: Wash leg with antibacterial soap and water and apply Aquacel extra to the wound base moistened cover with an absorbent dressing every day and follow-up in 1 week
--- NOTE | 2025-05-22 14:51 | WC ---
PHOTO-LEFT REYNA 05/21/25
[2025-05-27 10:30] VITALS: BP 162/89; PULSE 48; RESP 18; TEMP 36.1
[2025-05-27 10:47] VITALS: BMI 32.6
--- NOTE | 2025-05-28 15:15 | WC ---
PHOTO-LEFT REYNA 05/27/25
--- NOTE | 2025-05-29 18:48 | PCM.WC.HP ---
History of Present Illness Date of Service: 05/27/25 Chief Complaint: left lower garza wound from April 28 History of Wound: This is a 74-year-old white male who likes to cut his own trees and do his own yard work. He has a history of similar trauma wounds in his lower extremities in the past. The patient's current wound is located on his left pretibial surface. The current traumatic wound occurred on April 28, 2025. Patient has been cared for by other providers at the [facility] in the past, and records are available for review. The patient had been cleaning it with hydrogen peroxide. At initial presentation, there was no sign of infection, no fevers or chills etc. 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 He claims to be active. He denies swelling in his lower extremities. The patient is not a smoker. He is not diabetic. He has a history of acute superficial thrombophlebitis in the left great saphenous vein, diagnosed in December 2023. A noninvasive lower extremity arterial study performed in December 2023 revealed normal arterial flow at ankle level bilaterally, and at digital level on the right. 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 The patient also has a history of pulmonary embolism which was diagnosed during the COVID era. 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 History of pulmonary embolism Gastric reflux Wears hearing aid Wears glasses Cancer Alcohol use Walker as ambulation aid Ambulates with cane Arthritis Pulmonary embolism Restless legs Back pain History of IBS Former smoker Shortness of breath on exertion History of edema History of echocardiogram Hx of skin cancer, basal cell Bronchiectasis COVID-19 Home Medications Medication Instructions Recorded Last Taken Type albuterol sulfate 90 mcg/actuation 1 - 2 puff IH DAILY PRN SOB 10/19/16 08/01/22 History aerosol inhaler (Proventil HFA) budesonide-formoterol HFA 160 1 puff inhalation BID breathing 10/19/16 08/01/22 History mcg-4.5 mcg/actuation aerosol inhaler (Symbicort) guaifenesin 1,200 mg tablet, 1,200 mg PO BID 06/20/22 Unknown History extended release 12 hr (Mucinex) acetaminophen 500 mg tablet 1,000 mg (2 x 500 mg) PO Q8 30 08/02/22 Unknown Rx days #180 tabs ascorbic acid (vitamin C) 1,000 mg 1,000 mg PO DAILY 10/03/23 Unknown History tablet,extended release (C Complex) cholecalciferol (vitamin D3) 325 325 mcg PO QWEEK 10/03/23 Unknown History mcg (13,000 unit) capsule cyanocobalamin (vitamin B-12) 1,000 mcg PO DAILY 10/03/23 Unknown History 1,000 mcg tablet (Vitamin B-12) ferrous sulfate 325 mg (65 mg 325 mg PO DAILY 10/03/23 Unknown History iron) tablet (FeroSul) diphenhydramine HCl 50 mg capsule 50 mg PO BID PRN allergy symptoms 01/24/24 Unknown History aspirin 81 mg capsule 81 mg PO DAILY 05/21/25 Unknown History telmisartan 20 mg tablet 20 mg PO DAILY 05/21/25 Unknown History Allergy/AdvReac Type Severity Reaction Status Date / Time gabapentin Allergy Rash Verified 09/17/24 11:05 Family History Other Colon cancer Heart disease Surgical History Hx of colonoscopy History of hydrocelectomy History of back surgery History of hip surgery Social History Smoking Status: Never smoker Vital Signs Vital Signs Vital Signs: Weight Weight: 234 lb Body Mass Index (BMI) 32.6 Physical Exam Const alert, oriented x3, no apparent distress, average body habitus, no limitations and well nourished Constitutional Narrative: The patient's BMI is 32.6. General Appearance: cooperative, comfortable, well kempt and well developed Orientation / Consciousness: awake, oriented to person, oriented to place and oriented to time Exam Limitations: no limitations HEENT normocephalic and head/scalp atraumatic Head and Scalp: normal to inspection, normocephalic and atraumatic Face and Sinus: normal facial exam Nose: external nose normal External Ear: external ears normal Eyes EOMs intact bilaterally General Eye: normal appearance of both eyes Neck full ROM Resp normal respiratory effort, normal air movement, no retractions and no use of accessory muscles Effort and Inspection: able to speak in complete sentences Extremity no calf tenderness General Extremity: Negative for clubbing or cyanosis Skin Wound Narrative: The wound is noted on the patient's left pretibial surface. There is no sign of infection or cellulitis. The wound is full-thickness in nature, extending through all layers of the dermis and into the subcutaneous tissues. Dimensions are documented elsewhere. Wound margins are well beveled. There is a small amount of bioburden and slough. The wound appears smaller than noted previously. No significant swelling is noted in the patient's left lower extremity. Neuro oriented x3, CN's II-XII intact bilaterally, moves all extremities, no focal motor deficits and no sensory deficits noted Sensorium / Orientation: awake, alert, oriented to person, oriented to place and oriented to time Speech: speech normal Psych Appearance: grossly normal and appropriate Attitude: calm Activity / Motor Behavior: appropriate eye contact Speech: normal speech Mood & Affect: euthymic mood Thought Process: normal thought process Attention / Concentration: attention grossly intact Debridement Note Debridement Note Wound debrided: Left pretibial wound Laterality: Left Type of Debridement: Excisional debridement Anesthesia Used: 5% Lidocaine Gel and Cetacaine Depth: Down to and including healthy tissue and in the subcutaneous layer Percentage of wound debrided: 100 Instrument Used: 3mm curette Tissue Removed: Bioburden and slough Severity: Fat Layer Exposed Amount of bleeding with debridement: Mild Bleeding Controlled with: Compression and gauze Patient tolerated procedure: Patient tolerated procedure well Charges/Coding Multi Select Codes Visit Charges Office Visit/Consults: 62042 OV L4 New 45 min Integumentary Integumentary CPT Codes: 05064 Eloise subq tissue 20 sq cm/< Assessment/Plan Assessment/Plan (1) 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: CODE(S): L97.902 - Non-pressure chronic ulcer of unspecified part of unspecified lower leg with fat layer exposed QUALIFIERS: Laterality: left Qualified Code(s): L97.922 - Non-pressure chronic ulcer of unspecified part of left lower leg with fat layer exposed (2) Puncture wound of left lower leg: CODE(S): S81.832A - Puncture wound without foreign body, left lower leg, initial encounter QUALIFIERS: Encounter type: initial encounter Qualified Code(s): S81.832A - Puncture wound without foreign body, left lower leg, initial encounter (3) History of edema: CODE(S): Z87.898 - Personal history of other specified conditions (4) History of pulmonary embolism: CODE(S): Z86.711 - Personal history of pulmonary embolism (5) Venous insufficiency (chronic) (peripheral): CODE(S): I87.2 - Venous insufficiency (chronic) (peripheral) (6) S/P total left hip arthroplasty: CODE(S): Z96.642 - Presence of left artificial hip joint (7) 65 years of age or older: (8) Gastric reflux: CODE(S): K21.9 - Gastro-esophageal reflux disease without esophagitis (9) Arthritis: CODE(S): M19.90 - Unspecified osteoarthritis, unspecified site (10) History of IBS: CODE(S): Z87.19 - Personal history of other diseases of the digestive system (11) Former smoker: CODE(S): Z87.891 - Personal history of nicotine dependence (12) Hx of skin cancer, basal cell: CODE(S): Z85.828 - Personal history of other malignant neoplasm of skin (13) Bronchiectasis: CODE(S): J47.9 - Bronchiectasis, uncomplicated (14) History of back surgery: CODE(S): Z98.890 - Other specified postprocedural states (15) History of hydrocelectomy: CODE(S): Z98.890 - Other specified postprocedural states (16) History of hip surgery: CODE(S): Z98.890 - Other specified postprocedural states (17) Hypertension: CODE(S): I10 - Essential (primary) hypertension PLAN: Plan This is a 74-year-old male with a traumatic wound on his left pretibial surface. The injury occurred on April 28, 2025, when he impacted some downed tree branches against his leg. We are to continue the use of moistened Aquacel Extra topically to the wound on a daily basis, as well as [place] SAP. The patient has been instructed in the appropriate means of application. Patient has been instructed to wash the area with antimicrobial soap on a daily basis as well. The patient has been counseled to elevate his lower extremities is much as possible, to avoid swelling and edema. He is to avoid prolonged idle sitting. Activity has been encouraged. A double Tubigrip compression sleeve is to be donned to daily. The patient has been encouraged to optimize his nutritional intake. The patient will be scheduled to follow-up in 1 week for reevaluation. Total time: 46 minutes
== END 2025-05-27 23:59 | disposition home or self-care (01) ==
LOC: WC 10:15
PROVIDERS: PCP Family Medicine; Referring Provider Family Medicine; Visit Provider Surgery
DX: L97.322 Non-pressure chronic ulcer of left ankle with fat layer exposed (principal); S81.832S Puncture wound without foreign body, left lower leg, sequela; W22.8XXS Striking against or struck by other objects, sequela; I87.2 Venous insufficiency (chronic) (peripheral); K21.9 Gastro-esophageal reflux disease without esophagitis; Z85.828 Personal history of other malignant neoplasm of skin; Z79.899 Other long term (current) drug therapy; I10 Essential (primary) hypertension
CPT/HCPCS: 11042; 99213; G0463

== ENCOUNTER 2025-06-24 10:15 | Outpatient (RCR) | payer MEDICARE, OTHER, SELFPAY ==
[2025-06-03 10:50] VITALS: BP 165/84; PULSE 66; RESP 18; TEMP 36.4
--- NOTE | 2025-06-04 13:45 | WC ---
PHOTO-LLE 06/03/25
--- NOTE | 2025-06-04 16:19 | PCM.WC.HP ---
History of Present Illness Date of Service: 06/03/25 Chief Complaint: left lower garza wound from April 28 History of Wound: This is a 74-year-old white male who likes to cut his own trees and do his own yard work. He has a history of similar traumatic wounds in his lower extremities in the past. The patient's current wound is located on his left pretibial surface. The current traumatic wound occurred on April 28, 2025. The patient had been cared for by other providers at the [facility] in the past, and records were reviewed. The patient had been cleansing his wound with hydrogen peroxide. At initial presentation, there was no sign of infection, no fevers or chills etc. 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 He claims to be active. He denies swelling in his lower extremities. The patient is not a smoker. He is not diabetic. He has a history of acute superficial thrombophlebitis in the left great saphenous vein, diagnosed in December 2023. A noninvasive lower extremity arterial study performed in December 2023 revealed normal arterial flow at ankle level bilaterally, and at digital level on the right. 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 The patient also has a history of pulmonary embolism which was diagnosed during the COVID era. 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 History of pulmonary embolism Gastric reflux Wears hearing aid Wears glasses Cancer Alcohol use Walker as ambulation aid Ambulates with cane Arthritis Pulmonary embolism Restless legs Back pain History of IBS Former smoker Shortness of breath on exertion History of edema History of echocardiogram Hx of skin cancer, basal cell Bronchiectasis COVID-19 Home Medications Medication Instructions Recorded Last Taken Type albuterol sulfate 90 mcg/actuation 1 - 2 puff IH DAILY PRN SOB 10/19/16 08/01/22 History aerosol inhaler (Proventil HFA) budesonide-formoterol HFA 160 1 puff inhalation BID breathing 10/19/16 08/01/22 History mcg-4.5 mcg/actuation aerosol inhaler (Symbicort) guaifenesin 1,200 mg tablet, 1,200 mg PO BID 06/20/22 Unknown History extended release 12 hr (Mucinex) acetaminophen 500 mg tablet 1,000 mg (2 x 500 mg) PO Q8 30 08/02/22 Unknown Rx days #180 tabs ascorbic acid (vitamin C) 1,000 mg 1,000 mg PO DAILY 10/03/23 Unknown History tablet,extended release (C Complex) cholecalciferol (vitamin D3) 325 325 mcg PO QWEEK 10/03/23 Unknown History mcg (13,000 unit) capsule cyanocobalamin (vitamin B-12) 1,000 mcg PO DAILY 10/03/23 Unknown History 1,000 mcg tablet (Vitamin B-12) ferrous sulfate 325 mg (65 mg 325 mg PO DAILY 10/03/23 Unknown History iron) tablet (FeroSul) diphenhydramine HCl 50 mg capsule 50 mg PO BID PRN allergy symptoms 01/24/24 Unknown History aspirin 81 mg capsule 81 mg PO DAILY 05/21/25 Unknown History telmisartan 20 mg tablet 20 mg PO DAILY 05/21/25 Unknown History Allergy/AdvReac Type Severity Reaction Status Date / Time gabapentin Allergy Rash Verified 09/17/24 11:05 Family History Other Colon cancer Heart disease Surgical History Hx of colonoscopy History of hydrocelectomy History of back surgery History of hip surgery Social History Smoking Status: Never smoker Physical Exam Const alert, oriented x3, no apparent distress, average body habitus, no limitations and well nourished Constitutional Narrative: The patient's BMI is 32.6. General Appearance: cooperative, comfortable, well kempt and well developed Orientation / Consciousness: awake, oriented to person, oriented to place and oriented to time Exam Limitations: no limitations HEENT normocephalic and head/scalp atraumatic Head and Scalp: normal to inspection, normocephalic and atraumatic Face and Sinus: normal facial exam Nose: external nose normal External Ear: external ears normal Eyes EOMs intact bilaterally General Eye: normal appearance of both eyes Neck full ROM Resp normal respiratory effort, normal air movement, no retractions and no use of accessory muscles Effort and Inspection: able to speak in complete sentences Extremity no calf tenderness General Extremity: Negative for clubbing or cyanosis Skin Wound Narrative: A wound is noted on the patient's left pretibial surface. There is no sign of infection or cellulitis. The wound is full-thickness in nature, extending through all layers of the dermis and into the subcutaneous tissues. Dimensions are documented elsewhere. Wound margins are well beveled. The wound is generally pink and healthy in appearance, with a small amount of bioburden and slough. The wound appears smaller than noted previously. No significant swelling is noted in the patient's left lower extremity. Neuro oriented x3, CN's II-XII intact bilaterally, moves all extremities, no focal motor deficits and no sensory deficits noted Sensorium / Orientation: awake, alert, oriented to person, oriented to place and oriented to time Speech: speech normal Psych Appearance: grossly normal and appropriate Attitude: calm Activity / Motor Behavior: appropriate eye contact Speech: normal speech Mood & Affect: euthymic mood Thought Process: normal thought process Attention / Concentration: attention grossly intact Debridement Note Debridement Note Wound debrided: Left pretibial wound Laterality: Left Type of Debridement: Excisional debridement Anesthesia Used: 5% Lidocaine Gel Depth: Down to and including healthy tissue and in the subcutaneous layer Percentage of wound debrided: 100 Instrument Used: 3mm curette Tissue Removed: Bioburden and slough Severity: Fat Layer Exposed Amount of bleeding with debridement: Mild Bleeding Controlled with: Compression and gauze Patient tolerated procedure: Patient tolerated procedure well Post-Debridement Measurements and Additional Note: Post-Debridement Measurements/Treatment - Nurse 1 - General Ulcer Assessment Start: 06/03/25 10:49 Freq: Status: Active Protocol: MIKAELA Activity Type Activity Date Activity User E-sign Co-sign Detail Recorded Client Recorded Date Recorded By Document 06/03/25 10:50 MARIAMA [id number] 06/03/25 10:54 MARIAMA 06/03/25 10:50 - Today's Visit Information Type of service Follow-up Visit (Physician/[employer]UIT OR [employer] ) Arrival Mode Ambulatory Patient Identification Verified (Name & Yes ) Patient Requires Transmission-Based No Precautions Vital Signs Temperature (97.8 F-99.1 F) 97.6 F L Temperature Source Temporal Pulse Rate (60-100) 66 Pulse Location Monitor Respiratory Rate (12-18) 18 Respiratory rate source Observation Blood Pressure (90/60-120/80) 165/84 H Blood Pressure Mean 111 Source Monitor Position Sitting Blood Pressure Location Right Arm History Since Last Visit- (Skip if this is Patient's initial visit) Have you changed medications since your Yes last visit? Any new allergies or adverse reactions No Had a fall/change in ADL's that may No increase risk of falls Signs or symptoms of abuse and/or No neglect since last visit Have you been in the hospital since your No last visit? Has dressing in place as prescribed Yes Has compression in place as prescribed N/A Has offloadiing in place as prescribed N/A Experienced any changes in pain level or No management Left Footwear Regular Shoe Right Footwear Regular Shoe Pain Scale: 0-10 Numeric Is Patient Pain Free? Yes KIRSTY - Nurse 1 - General Ulcer Measurement Start: 06/03/25 10:49 Freq: Status: Active Protocol: Activity Type Activity Date Activity User E-sign Co-sign Detail Recorded Client Recorded Date Recorded By Document 06/03/25 10:50 MARIAMA [id number] 06/03/25 10:54 MARIAMA 06/03/25 10:50 Wound Center Nurse 1 2. LLE -Combined with other wound No -Current Size (cm) - Length 0.7 -Current Size (cm) - Width 0.3 -Current Size (cm) - Depth 0.2 -Total Square Cm 0.21 -Photo Taken Yes -Epithelialization Medium 34-66% -Tunneling No -Undermining/Tunneling No -Circular Undermining No -Exudate Amt None Present -Wound Margin Indistinct, Non -Visible -Granulation Amt Small (1-33%) -Granulation Quality [place] -Slough/Fibrin Yes -Necrosis Amt Medium (34-66%) -Necrotic Tissue Type Adherent Slough -Structure Exposed N/A -Texture (Astrid-wound Skin Appearance) Assessed, Localized Edema -Moisture (Astrid-wound Skin Appearance) Assessed,Dry/ Scaly -Color (Astrid-wound Skin Appearance) Assessed -Ulcer Cleansing Rinsed/ Irrigated with Saline -Foul Odor after Cleansing No -Anesthetic Used 5% Lidocaine Gel Lower Limb Edema Present Yes Left Calf (cm) 41.0 Left Ankle (cm) 23.7 KIRSTY - Nurse 2 - General Ulcer CM Notes Start: 06/03/25 10:49 Freq: Status: Active Protocol: Activity Type Activity Date Activity User E-sign Co-sign Detail Recorded Client Recorded Date Recorded By Document 06/03/25 11:07 DS [id number] 06/03/25 11:10 DS 06/03/25 11:07 Wound Center Nurse 2 2. LLE -Time 11:07 -Correct Patient Yes -Correct Side, Site, Position Yes -Correct Procedure Yes -Procedure Performed Yes -Type of Procedure Debridement -Clinical Debridement Subcutaneous -Tissue Removed Subcutaneous -Post Debridement (cm) - Length 0.9 -Post Debridement (cm) - Width 0.3 -Post Debridement (cm) - Depth 0.1 -Total Square (Post) (cm) 0.27 -Area of Debridement (cm) - Length 0.9 -Area of Debridement (cm) - Width 0.3 -Total Square (Area) (cm) 0.27 -Tunneling No -Undermining/Tunneling No -Circular Undermining No -Wound/Ulcer Outcome Not Healed -Ulcer Cleansing gauze -Foul Odor after Cleansing No -Bioengineered Tissue No -Bleeding Controlled with Pressure -Treatment Response Procedure Tolerated Well -Debridement - Subq, 1st 20sq cm Yes Pain Scale: 0-10 Numeric Is Patient Pain Free? Yes - Nurse 3 - General Ulcer D/C NN Start: 06/03/25 10:49 Freq: Status: Active Protocol: Activity Type Activity Date Activity User E-sign Co-sign Detail Recorded Client Recorded Date Recorded By Document 06/03/25 11:15 DS [id number] 06/03/25 11:20 DS 06/03/25 11:15 Wound Care Center Nurse 3 2. LLE -Ulcer Cleansing gauze -Primary Dressing Applied C Hydrogel, Silicone Border Foam 4x4 -Hydrogel 1 -Silicone Border Foam 4x4 1 LLE -Tubular Bandage Double Layer -Size of Tubigrip Used Size E -Size E ($) 2 Pain Scale: 0-10 Numeric Is Patient Pain Free? 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: CODE(S): L97.902 - Non-pressure chronic ulcer of unspecified part of unspecified lower leg with fat layer exposed QUALIFIERS: Laterality: left Qualified Code(s): L97.922 - Non-pressure chronic ulcer of unspecified part of left lower leg with fat layer exposed (2) Puncture wound of left lower leg: CODE(S): S81.832A - Puncture wound without foreign body, left lower leg, initial encounter QUALIFIERS: Encounter type: initial encounter Qualified Code(s): S81.832A - Puncture wound without foreign body, left lower leg, initial encounter (3) History of edema: CODE(S): Z87.898 - Personal history of other specified conditions (4) History of pulmonary embolism: CODE(S): Z86.711 - Personal history of pulmonary embolism (5) Venous insufficiency (chronic) (peripheral): CODE(S): I87.2 - Venous insufficiency (chronic) (peripheral) (6) S/P total left hip arthroplasty: CODE(S): Z96.642 - Presence of left artificial hip joint (7) 65 years of age or older: (8) Gastric reflux: CODE(S): K21.9 - Gastro-esophageal reflux disease without esophagitis (9) Arthritis: CODE(S): M19.90 - Unspecified osteoarthritis, unspecified site (10) History of IBS: CODE(S): Z87.19 - Personal history of other diseases of the digestive system (11) Former smoker: CODE(S): Z87.891 - Personal history of nicotine dependence (12) Hx of skin cancer, basal cell: CODE(S): Z85.828 - Personal history of other malignant neoplasm of skin (13) Bronchiectasis: CODE(S): J47.9 - Bronchiectasis, uncomplicated (14) History of back surgery: CODE(S): Z98.890 - Other specified postprocedural states (15) History of hydrocelectomy: CODE(S): Z98.890 - Other specified postprocedural states (16) History of hip surgery: CODE(S): Z98.890 - Other specified postprocedural states (17) Hypertension: CODE(S): I10 - Essential (primary) hypertension PLAN: Plan This is a 74-year-old male with a traumatic wound on his left pretibial surface. The injury occurred on April 28, 2025, when he impacted some downed tree branches against his leg. We are to implement the use of collagen hydrogel topically to the wound on a daily basis. The patient has been instructed in the appropriate means of application. The patient has been instructed to wash the area with antimicrobial soap on a daily basis as well. The patient has been counseled to elevate his lower extremities as much as possible to avoid swelling and edema. He is to avoid prolonged idle sitting. Activity has been encouraged. A double Tubigrip compression sleeve is to be donned daily. The patient has been encouraged to optimize his nutritional intake. The patient will be scheduled to follow-up in 1 week for reevaluation. Total time: 25 minutes
[2025-06-10 09:56] VITALS: BP 154/89; PULSE 75; RESP 18; TEMP 36.1
--- NOTE | 2025-06-12 12:59 | HP.PCM_ITS ---
History of Present Illness Date of Service: 06/10/25 Chief Complaint: Left pretibial wound History of Wound: This is a 74-year-old male who likes to cut his own trees and do his own yard work. His injury occurred when his left leg impacted against some downed branches. He has a history of similar traumatic wounds in his lower extremities in the past. The patient's current wound is located on his left pretibial surface. The current traumatic wound occurred on April 28, 2025. The patient had been cared for by other providers at the [facility] in the past, and records were reviewed. The patient had been cleansing his wound with hydrogen peroxide. At initial presentation, there was no sign of infection, no fevers or chills etc. 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 He claims to be active. He denies swelling in his lower extremities. The patient is not a smoker. He is not diabetic. He has a history of acute superficial thrombophlebitis in the left great saphenous vein, diagnosed in December 2023. A noninvasive lower extremity arterial study performed in December 2023 revealed normal arterial flow at ankle level bilaterally, and at digital level on the right. 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 The patient also has a history of pulmonary embolism which was diagnosed during the COVID era. 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 History of pulmonary embolism Gastric reflux Wears hearing aid Wears glasses Cancer Alcohol use Walker as ambulation aid Ambulates with cane Arthritis Pulmonary embolism Restless legs Back pain History of IBS Former smoker Shortness of breath on exertion History of edema History of echocardiogram Hx of skin cancer, basal cell Bronchiectasis COVID-19 Home Medications Medication Instructions Recorded Last Taken Type albuterol sulfate 90 mcg/actuation 1 - 2 puff IH DAILY PRN SOB 10/19/16 08/01/22 History aerosol inhaler (Proventil HFA) budesonide-formoterol HFA 160 1 puff inhalation BID br eathing 10/19/16 08/01/22 History mcg-4.5 mcg/actuation aerosol inhaler (Symbicort) guaifenesin 1,200 mg tablet, 1,200 mg PO BID 06/20/22 Unknown History extended release 12 hr (Mucinex) acetaminophen 500 mg tablet 1,000 mg (2 x 500 mg) PO Q 8 30 08/02/22 Unknown Rx days #180 tabs ascorbic acid (vitamin C) 1,000 mg 1,000 mg PO DAILY 0 10/03/23 Unknown History tablet,extended release (C Complex) cholecalciferol (vitamin D3) 325 325 mcg PO QWEEK 02/18 Unknown History mcg (13,000 unit) capsule cyanocobalamin (vitamin B-12) 1,000 mcg PO DAILY 10/03 Unknown History 1,000 mcg tablet (Vitamin B-12) ferrous sulfate 325 mg (65 mg 325 mg PO DAILY 10/03/23 Unknown History iron) tablet (FeroSul) diphenhydramine HCl 50 mg capsule 50 mg PO BID PRN all ergy symptoms 01/24/24 Un known History aspirin 81 mg capsule 81 mg PO DAILY 05/21/25 Unkn own History telmisartan 20 mg tablet 20 mg PO DAILY 05/21/25 Unkn own History Allergy/AdvReac Type Severity Reaction Status Date / Time gabapentin Allergy Rash Verified 09/17/24 11:05 Family History Other Colon cancer Heart disease Surgical History Hx of colonoscopy History of hydrocelectomy History of back surgery History of hip surgery Social History Smoking Status: Never smoker Physical Exam Const alert, oriented x3, no apparent distress, average body habitus, no limitations and well nourished Constitutional Narrative: The patient's BMI is 32.6. General Appearance: cooperative, comfortable, well kempt and well developed Orientation / Consciousness: awake, oriented to person, oriented to place and oriented to time Exam Limitations: no limitations HEENT normocephalic and head/scalp atraumatic Head and Scalp: normal to inspection, normocephalic and atraumatic Face and Sinus: normal facial exam Nose: external nose normal External Ear: external ears normal Eyes EOMs intact bilaterally General Eye: normal appearance of both eyes Neck full ROM Resp normal respiratory effort, normal air movement, no retractions and no use of accessory muscles Effort and Inspection: able to speak in complete sentences Extremity no calf tenderness General Extremity: Negative for clubbing or cyanosis Skin Wound Narrative: A wound is noted on the patient's left pretibial surface. There is no sign of infection or cellulitis. The wound is full-thickness in nature, extending through all layers of the dermis and into the subcutaneous tissues. Dimensions are documented elsewhere. The wound continues to diminish in size. Wound margins are well beveled. The wound is generally pink and healthy in appearance, with a small amount of bioburden. No significant swelling is noted in the patient's left lower extremity. Neuro oriented x3, CN's II-XII intact bilaterally, moves all extremities, no focal motor deficits and no sensory deficits noted Sensorium / Orientation: awake, alert, oriented to person, oriented to place and oriented to time Speech: speech normal Psych Appearance: grossly normal and appropriate Attitude: calm Activity / Motor Behavior: appropriate eye contact Speech: normal speech Mood & Affect: euthymic mood Thought Process: normal thought process Attention / Concentration: attention grossly intact Debridement Note Debridement Note Wound debrided: Left pretibial wound Laterality: Left Type of Debridement: Excisional debridement Anesthesia Used: 5% Lidocaine Gel Depth: Down to and including healthy tissue and in the subcutaneous layer Percentage of wound debrided: 100 Instrument Used: 3mm curette Tissue Removed: Bioburden Severity: Fat Layer Exposed Amount of bleeding with debridement: Mild Bleeding Controlled with: Compression and gauze Patient tolerated procedure: Patient tolerated procedure well Post-Debridement Measurements and Additional Note: Post-Debridement Measurements/Treatment - Nurse 1 - General Ulcer Assessment Start: 06/03/25 10:49 Freq: Status: Active Protocol: MIKAELA Activity Type Activity Date Activity User E-sign Co-sign Detail Recorded Client Recorded Date Recorded By Document 06/03/25 10:50 MARIAMA [id number] 06/03/25 10:54 MARIAMA Document 06/10/25 09:56 RB [id number] 06/10/25 09:58 RB 06/03/25 06/10/25 10:50 09:56 - Today's Visit Information Type of service Follow-up Visit Follow-up Visit (Physician/TRAY ROOM WORKER (Physician/TRAY ROOM WORKER ) ) Arrival Mode Ambulatory Ambulatory Transfer Assistance None Patient Identification Verified (Name & Yes Yes ) Patient Requires Transmission-Based No No Precautions Vital Signs Temperature (97.8 F-99.1 F) 97.6 F L 97 F L Temperature Source Temporal Temporal Pulse Rate (60-100) 66 75 Pulse Location Monitor Monitor Respiratory Rate (12-18) 18 18 Respiratory rate source Observation Observation Blood Pressure (90/60-120/80) 165/84 H 154/89 H Blood Pressure Mean 111 110 Source Monitor Monitor Position Sitting Sitting Blood Pressure Location Right Arm Left Arm History Since Last Visit- (Skip if this is Patient's initial visit) Have you changed medications since your Yes No last visit? Any new allergies or adverse reactions No No Had a fall/change in ADL's that may No No increase risk of falls Signs or symptoms of abuse and/or No No neglect since last visit Have you been in the hospital since your No No last visit? Has dressing in place as prescribed Yes Yes Has compression in place as prescribed N/A Yes Has offloadiing in place as prescribed N/A N/A Experienced any changes in pain level or No No management Left Footwear Regular Shoe Regular Shoe Right Footwear Regular Shoe Regular Shoe Pain Scale: 0-10 Numeric Is Patient Pain Free? Yes Yes - Nurse 1 - General Ulcer Measurement Start: 06/03/25 10:49 Freq: Status: Active Protocol: Activity Type Activity Date Activity User E-sign Co-sign Detail Recorded Client Recorded Date Recorded By Document 06/03/25 10:50 [id number] 06/03/25 10:54 Document 06/10/25 09:56 RB [id number] 06/10/25 09:58 RB 06/03/25 06/10/25 10:50 09:56 Wound Center Nurse 1 2. LLE -Combined with other wound No No -Current Size (cm) - Length 0.7 0.5 -Current Size (cm) - Width 0.3 0.2 -Current Size (cm) - Depth 0.2 0.1 -Total Square Cm 0.21 0.10 -Photo Taken Yes Yes -Epithelialization Medium 34-66% -Tunneling No No -Undermining/Tunneling No No -Circular Undermining No No -Exudate Amt None Present Medium -Exudate Type Serosanguineous -Wound Margin Indistinct, Non Distinct, -Visible Outline Attached -Granulation Amt Small (1-33%) Medium (34-66%) -Granulation Quality [place] -Slough/Fibrin Yes Yes -Necrosis Amt Medium (34-66%) Medium (34-66%) -Necrotic Tissue Type Adherent Slough Adherent Slough -Structure Exposed N/A N/A -Texture (Astrid-wound Skin Appearance) Assessed, Assessed Localized Edema -Moisture (Astrid-wound Skin Appearance) Assessed,Dry/ Assessed Scaly -Color (Astrid-wound Skin Appearance) Assessed Assessed, Hemosiderin Staining -Temperature (Astrid-wound Skin No Abnormality Appearance) (Pt Warm) -Tenderness on Palpation (Astrid-wound No Skin Appearance) -Ulcer Cleansing Rinsed/ Irrigated with Saline -Foul Odor after Cleansing No No -Anesthetic Used 5% Lidocaine 5% Lidocaine Gel Gel Lower Limb Edema Present Yes Yes Left Calf (cm) 41.0 41 Left Ankle (cm) 23.7 23.7 WC - Nurse 2 - General Ulcer CM Notes Start: 06/03/25 10:49 Freq: Status: Active Protocol: Activity Type Activity Date Activity User E-sign Co-sign Detail Recorded Client Recorded Date Recorded By Document 06/03/25 11:07 DS [id number] 06/03/25 11:10 DS Document 06/10/25 10:10 DS [id number] 06/10/25 10:13 DS 06/03/25 06/10/25 11:07 10:10 Wound Center Nurse 2 2. LLE -Time 11:07 10:10 -Correct Patient Yes Yes -Correct Side, Site, Position Yes Yes -Correct Procedure Yes Yes -Procedure Performed Yes Yes -Type of Procedure Debridement Debridement -Clinical Debridement Subcutaneous Subcutaneous -Tissue Removed Subcutaneous Subcutaneous -Post Debridement (cm) - Length 0.9 0.5 -Post Debridement (cm) - Width 0.3 0.4 -Post Debridement (cm) - Depth 0.1 0.1 -Total Square (Post) (cm) 0.27 0.20 -Area of Debridement (cm) - Length 0.9 0.5 -Area of Debridement (cm) - Width 0.3 0.4 -Total Square (Area) (cm) 0.27 0.20 -Tunneling No No -Undermining/Tunneling No No -Circular Undermining No No -Wound/Ulcer Outcome Not Healed Not Healed -Ulcer Cleansing gauze gauze -Foul Odor after Cleansing No No -Bioengineered Tissue No No -Bleeding Controlled with Pressure Pressure -Treatment Response Procedure Procedure Tolerated Well Tolerated Well -Debridement - Subq, 1st 20sq cm Yes Yes Pain Scale: 0-10 Numeric Is Patient Pain Free? Yes Yes - Nurse 3 - General Ulcer D/C NN Start: 06/03/25 10:49 Freq: Status: Active Protocol: Activity Type Activity Date Activity User E-sign Co-sign Detail Recorded Client Recorded Date Recorded By Document 06/03/25 11:15 DS [id number] 06/03/25 11:20 DS Document 06/10/25 10:33 JF [id number] 06/10/25 10:33 JF 06/03/25 06/10/25 11:15 10:33 Wound Care Center Nurse 3 2. LLE -Ulcer Cleansing gauze Rinsed/ Irrigated with Saline -Primary Dressing Applied C Hydrogel, Silicone Border Silicone Border Foam 4x4 Foam 4x4 -Other Dressing hydrogel -Hydrogel 1 -Silicone Border Foam 4x4 1 1 LLE -Tubular Bandage Double Layer Double Layer -Size of Tubigrip Used Size E Size E -Size E ($) 2 2 Pain Scale: 0-10 Numeric Is Patient Pain Free? 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: CODE(S): L97.902 - Non-pressure chronic ulcer of unspecified part of unspecified lower leg with fat layer exposed QUALIFIERS: Laterality: left Qualified Code(s): L97.922 - Non- pressure chronic ulcer of unspecified part of left lower leg with fat layer exposed (2) Puncture wound of left lower leg: CODE(S): S81.832A - Puncture wound without foreign body, left lower leg, initial encounter QUALIFIERS: Encounter type: subsequent encounter Qualified Code(s): S81.832D - Puncture wound without foreign body, left lower leg, subsequent encounter (3) History of edema: CODE(S): Z87.898 - Personal history of other specified conditions (4) History of pulmonary embolism: CODE(S): Z86.711 - Personal history of pulmonary embolism (5) Venous insufficiency (chronic) (peripheral): CODE(S): I87.2 - Venous insufficiency (chronic) (peripheral) (6) S/P total left hip arthroplasty: CODE(S): Z96.642 - Presence of left artificial hip joint (7) 65 years of age or older: (8) Gastric reflux: CODE(S): K21.9 - Gastro-esophageal reflux disease without esophagitis (9) Arthritis: CODE(S): M19.90 - Unspecified osteoarthritis, unspecified site (10) History of IBS: CODE(S): Z87.19 - Personal history of other diseases of the digestive system (11) Former smoker: CODE(S): Z87.891 - Personal history of nicotine dependence (12) Hx of skin cancer, basal cell: CODE(S): Z85.828 - Personal history of other malignant neoplasm of skin (13) Bronchiectasis: CODE(S): J47.9 - Bronchiectasis, uncomplicated (14) History of back surgery: CODE(S): Z98.890 - Other specified postprocedural states (15) History of hydrocelectomy: CODE(S): Z98.890 - Other specified postprocedural states (16) History of hip surgery: CODE(S): Z98.890 - Other specified postprocedural states (17) Hypertension: CODE(S): I10 - Essential (primary) hypertension PLAN: Plan This is a 74-year-old male with a traumatic wound on his left pretibial surface. The injury occurred on April 28, 2025, when he impacted some downed tree branches against his leg. We are to continue the use of collagen hydrogel topically to the wound on a daily basis. The patient has been instructed in the appropriate means of application. The patient has been instructed to wash the area with antimicrobial soap on a daily basis as well. The patient has been counseled to elevate his lower extremities as much as possible to avoid swelling and edema. He is to avoid prolonged idle sitting. Activity has been encouraged. A double Tubigrip compression sleeve is to be donned daily. The patient has been encouraged to optimize his nutritional intake. The patient will be scheduled to follow-up in 1 week for reevaluation. Total time: 24 minutes
[2025-06-17 09:29] VITALS: BP 180/79; PULSE 57; RESP 18; TEMP 36
--- NOTE | 2025-06-19 14:35 | PCM.WC.HP ---
History of Present Illness Date of Service: 06/17/25 Chief Complaint: Left pretibial wound History of Wound: This is a 74-year-old male who likes to cut his own trees and do his own yard work. His injury occurred when his left leg impacted against some downed branches. He has a history of similar traumatic wounds in his lower extremities in the past. The patient's current wound is located on his left pretibial surface. The current traumatic wound occurred on April 28, 2025. The patient had been cared for by other providers at the [facility] in the past, and records were reviewed. The patient had been cleansing his wound with hydrogen peroxide. At initial presentation, there was no sign of infection, no fevers or chills etc. 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 He claims to be active. He denies swelling in his lower extremities. The patient is not a smoker. He is not diabetic. He has a history of acute superficial thrombophlebitis in the left great saphenous vein, diagnosed in December 2023. A noninvasive lower extremity arterial study performed in December 2023 revealed normal arterial flow at ankle level bilaterally, and at digital level on the right. 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 The patient also has a history of pulmonary embolism which was diagnosed during the COVID era. 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 History of pulmonary embolism Gastric reflux Wears hearing aid Wears glasses Cancer Alcohol use Walker as ambulation aid Ambulates with cane Arthritis Pulmonary embolism Restless legs Back pain History of IBS Former smoker Shortness of breath on exertion History of edema History of echocardiogram Hx of skin cancer, basal cell Bronchiectasis COVID-19 Home Medications Medication Instructions Recorded Last Taken Type albuterol sulfate 90 mcg/actuation 1 - 2 puff IH DAILY PRN SOB 10/19/16 08/01/22 History aerosol inhaler (Proventil HFA) budesonide-formoterol HFA 160 1 puff inhalation BID breathing 10/19/16 08/01/22 History mcg-4.5 mcg/actuation aerosol inhaler (Symbicort) guaifenesin 1,200 mg tablet, 1,200 mg PO BID 06/20/22 Unknown History extended release 12 hr (Mucinex) acetaminophen 500 mg tablet 1,000 mg (2 x 500 mg) PO Q8 30 08/02/22 Unknown Rx days #180 tabs ascorbic acid (vitamin C) 1,000 mg 1,000 mg PO DAILY 10/03/23 Unknown History tablet,extended release (C Complex) cholecalciferol (vitamin D3) 325 325 mcg PO QWEEK 10/03/23 Unknown History mcg (13,000 unit) capsule cyanocobalamin (vitamin B-12) 1,000 mcg PO DAILY 10/03/23 Unknown History 1,000 mcg tablet (Vitamin B-12) ferrous sulfate 325 mg (65 mg 325 mg PO DAILY 10/03/23 Unknown History iron) tablet (FeroSul) diphenhydramine HCl 50 mg capsule 50 mg PO BID PRN allergy symptoms 01/24/24 Unknown History aspirin 81 mg capsule 81 mg PO DAILY 05/21/25 Unknown History telmisartan 20 mg tablet 20 mg PO DAILY 05/21/25 Unknown History Allergy/AdvReac Type Severity Reaction Status Date / Time gabapentin Allergy Rash Verified 09/17/24 11:05 Family History Other Colon cancer Heart disease Surgical History Hx of colonoscopy History of hydrocelectomy History of back surgery History of hip surgery Social History Smoking Status: Never smoker Physical Exam Const alert, oriented x3, no apparent distress, average body habitus, no limitations and well nourished Constitutional Narrative: The patient's BMI is 32.6. General Appearance: cooperative, comfortable, well kempt and well developed Orientation / Consciousness: awake, oriented to person, oriented to place and oriented to time Exam Limitations: no limitations HEENT normocephalic and head/scalp atraumatic Head and Scalp: normal to inspection, normocephalic and atraumatic Face and Sinus: normal facial exam Nose: external nose normal External Ear: external ears normal Eyes EOMs intact bilaterally General Eye: normal appearance of both eyes Neck full ROM Resp normal respiratory effort, normal air movement, no retractions and no use of accessory muscles Effort and Inspection: able to speak in complete sentences Extremity no calf tenderness General Extremity: Negative for clubbing or cyanosis Skin Wound Narrative: A wound is noted on the patient's left pretibial surface. There is no sign of infection or cellulitis. The wound is full-thickness in nature, extending through all layers of the dermis and into the subcutaneous tissues. Dimensions are documented elsewhere. The wound continues to diminish in size. Wound margins are well beveled. The wound is generally pink and healthy in appearance, with a small amount of bioburden. No significant swelling is noted in the patient's left lower extremity. Neuro oriented x3, CN's II-XII intact bilaterally, moves all extremities, no focal motor deficits and no sensory deficits noted Sensorium / Orientation: awake, alert, oriented to person, oriented to place and oriented to time Speech: speech normal Psych Appearance: grossly normal and appropriate Attitude: calm Activity / Motor Behavior: appropriate eye contact Speech: normal speech Mood & Affect: euthymic mood Thought Process: normal thought process Attention / Concentration: attention grossly intact Debridement Note Debridement Note Wound debrided: Left pretibial wound Laterality: Left Type of Debridement: Excisional debridement Anesthesia Used: 5% Lidocaine Gel Depth: Down to and including healthy tissue and in the subcutaneous layer Percentage of wound debrided: 100 Instrument Used: 5mm curette Tissue Removed: Bioburden Severity: Fat Layer Exposed Amount of bleeding with debridement: Mild Bleeding Controlled with: Compression and gauze Patient tolerated procedure: Patient tolerated procedure well Post-Debridement Measurements and Additional Note: Post-Debridement Measurements/Treatment - Nurse 1 - General Ulcer Assessment Start: 06/03/25 10:49 Freq: Status: Active Protocol: MIKAELA Activity Type Activity Date Activity User E-sign Co-sign Detail Recorded Client Recorded Date Recorded By Document 06/03/25 10:50 JF [id number] 06/03/25 10:54 JF Document 06/10/25 09:56 RB [id number] 06/10/25 09:58 RB Document 06/17/25 09:29 TS [id number] 06/17/25 09:37 TS 06/03/25 06/10/25 06/17/25 10:50 09:56 09:29 - Today's Visit Information Type of service Follow-up Visit Follow-up Visit Follow-up Visit (Physician/PROFESSIONAL BONDSMAN (Physician/PROFESSIONAL BONDSMAN (Physician/PROFESSIONAL BONDSMAN ) ) ) Arrival Mode Ambulatory Ambulatory Ambulatory Transfer Assistance None None Patient Identification Verified (Name & Yes Yes Yes ) Patient Requires Transmission-Based No No No Precautions Vital Signs Temperature (97.8 F-99.1 F) 97.6 F L 97 F L 96.8 F L Temperature Source Temporal Temporal Temporal Pulse Rate (60-100) 66 75 57 L Pulse Location Monitor Monitor Monitor Respiratory Rate (12-18) 18 18 18 Respiratory rate source Observation Observation Observation Oxygen Delivery Method Room Air FIO2 % 97 Blood Pressure (90/60-120/80) 165/84 H 154/89 H 180/79 H Blood Pressure Mean 111 110 112 Source Monitor Monitor Monitor Position Sitting Sitting Sitting Blood Pressure Location Right Arm Left Arm Left Arm History Since Last Visit- (Skip if this is Patient's initial visit) Have you changed medications since your Yes No No last visit? Any new allergies or adverse reactions No No No Had a fall/change in ADL's that may No No No increase risk of falls Signs or symptoms of abuse and/or No No No neglect since last visit Have you been in the hospital since your No No No last visit? Has dressing in place as prescribed Yes Yes Yes Has compression in place as prescribed N/A Yes No Has offloadiing in place as prescribed N/A N/A N/A Experienced any changes in pain level or No No No management Left Footwear Regular Shoe Regular Shoe Regular Shoe Right Footwear Regular Shoe Regular Shoe Regular Shoe Pain Scale: 0-10 Numeric Is Patient Pain Free? Yes Yes Yes WC - Nurse 1 - General Ulcer Measurement Start: 06/03/25 10:49 Freq: Status: Active Protocol: Activity Type Activity Date Activity User E-sign Co-sign Detail Recorded Client Recorded Date Recorded By Document 06/03/25 10:50 JF [id number] 06/03/25 10:54 JF Document 06/10/25 09:56 RB [id number] 06/10/25 09:58 RB Document 06/17/25 09:29 TS [id number] 06/17/25 09:37 TS 06/03/25 06/10/25 06/17/25 10:50 09:56 09:29 Wound Center Nurse 1 2. LLE -Combined with other wound No No No -Current Size (cm) - Length 0.7 0.5 0.1 -Current Size (cm) - Width 0.3 0.2 0.1 -Current Size (cm) - Depth 0.2 0.1 0.1 -Total Square Cm 0.21 0.10 0.01 -Photo Taken Yes Yes Yes -Epithelialization Medium 34-66% Medium 34-66% -Tunneling No No No -Undermining/Tunneling No No No -Circular Undermining No No No -Exudate Amt None Present Medium None Present -Exudate Type Serosanguineous -Wound Margin Indistinct, Non Distinct, Distinct, -Visible Outline Outline Attached Attached -Granulation Amt Small (1-33%) Medium (34-66%) Small (1-33%) -Granulation Quality [place] Wald[place] -Slough/Fibrin Yes Yes Yes -Necrosis Amt Medium (34-66%) Medium (34-66%) Medium (34-66%) -Necrotic Tissue Type Adherent Slough Adherent Slough Adherent Slough -Structure Exposed N/A N/A N/A -Texture (Astrid-wound Skin Appearance) Assessed, Assessed No Abnormality Localized Edema -Moisture (Astrid-wound Skin Appearance) Assessed,Dry/ Assessed No Abnormality Scaly -Color (Astrid-wound Skin Appearance) Assessed Assessed, Hemosiderin Hemosiderin Staining Staining -Temperature (Astrid-wound Skin No Abnormality No Abnormality Appearance) (Pt Warm) (Pt Warm) -Tenderness on Palpation (Astrid-wound No No Skin Appearance) -Ulcer Cleansing Rinsed/ Irrigated with Saline -Foul Odor after Cleansing No No No -Anesthetic Used 5% Lidocaine 5% Lidocaine 5% Lidocaine Gel Gel Gel Lower Limb Edema Present Yes Yes No Left Calf (cm) 41.0 41 42.1 Left Ankle (cm) 23.7 23.7 24.1 WC - Nurse 2 - General Ulcer CM Notes Start: 06/03/25 10:49 Freq: Status: Active Protocol: Activity Type Activity Date Activity User E-sign Co-sign Detail Recorded Client Recorded Date Recorded By Document 06/03/25 11:07 DS [id number] 06/03/25 11:10 DS Document 06/10/25 10:10 DS [id number] 06/10/25 10:13 DS Document 06/17/25 09:44 [id number] 06/17/25 09:47 06/03/25 06/10/25 06/17/25 11:07 10:10 09:44 Wound Center Nurse 2 2. LLE -Time 11:07 10:10 09:44 -Correct Patient Yes Yes Yes -Correct Side, Site, Position Yes Yes Yes -Correct Procedure Yes Yes Yes -Procedure Performed Yes Yes Yes -Type of Procedure Debridement Debridement Debridement -Clinical Debridement Subcutaneous Subcutaneous Subcutaneous -Tissue Removed Subcutaneous Subcutaneous Subcutaneous -Post Debridement (cm) - Length 0.9 0.5 0.6 -Post Debridement (cm) - Width 0.3 0.4 0.3 -Post Debridement (cm) - Depth 0.1 0.1 0.1 -Total Square (Post) (cm) 0.27 0.20 0.18 -Area of Debridement (cm) - Length 0.9 0.5 0.6 -Area of Debridement (cm) - Width 0.3 0.4 0.3 -Total Square (Area) (cm) 0.27 0.20 0.18 -Tunneling No No No -Undermining/Tunneling No No No -Circular Undermining No No No -Wound/Ulcer Outcome Not Healed Not Healed Not Healed -Ulcer Cleansing gauze gauze Rinsed/ Irrigated with Saline -Foul Odor after Cleansing No No No -Bioengineered Tissue No No No -Bleeding Controlled with Pressure Pressure Pressure -Treatment Response Procedure Procedure Procedure Tolerated Well Tolerated Well Tolerated Well -Offloading No -Debridement - Subq, 1st 20sq cm Yes Yes Yes Pain Scale: 0-10 Numeric Is Patient Pain Free? Yes Yes Yes WC - Nurse 3 - General Ulcer D/C NN Start: 06/03/25 10:49 Freq: Status: Active Protocol: Activity Type Activity Date Activity User E-sign Co-sign Detail Recorded Client Recorded Date Recorded By Document 06/03/25 11:15 DS [id number] 06/03/25 11:20 DS Document 06/10/25 10:33 JF [id number] 06/10/25 10:33 JF Document 06/17/25 09:53 GM [id number] 06/17/25 09:54 GM 06/03/25 06/10/25 06/17/25 11:15 10:33 09:53 Wound Care Center Nurse 3 2. LLE -Ulcer Cleansing gauze Rinsed/ Not Cleansed Irrigated with Saline -Primary Dressing Applied C Hydrogel, Silicone Border C Hydrogel, Silicone Border Foam 4x4 Optilok 5x5 1/2 Foam 4x4 -Other Dressing hydrogel -Hydrogel 1 1 -Optilok 5x5 1/2 1 -Silicone Border Foam 4x4 1 1 LLE -Lotion applied to leg before No compression wrap -Tubular Bandage Double Layer Double Layer Double Layer -Size of Tubigrip Used Size E Size E Size E -Size E ($) 2 2 2 Pain Scale: 0-10 Numeric Is Patient Pain Free? 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: CODE(S): L97.902 - Non-pressure chronic ulcer of unspecified part of unspecified lower leg with fat layer exposed QUALIFIERS: Laterality: left Qualified Code(s): L97.922 - Non-pressure chronic ulcer of unspecified part of left lower leg with fat layer exposed (2) Puncture wound of left lower leg: CODE(S): S81.832A - Puncture wound without foreign body, left lower leg, initial encounter QUALIFIERS: Encounter type: subsequent encounter Qualified Code(s): S81.832D - Puncture wound without foreign body, left lower leg, subsequent encounter (3) History of edema: CODE(S): Z87.898 - Personal history of other specified conditions (4) History of pulmonary embolism: CODE(S): Z86.711 - Personal history of pulmonary embolism (5) Venous insufficiency (chronic) (peripheral): CODE(S): I87.2 - Venous insufficiency (chronic) (peripheral) (6) S/P total left hip arthroplasty: CODE(S): Z96.642 - Presence of left artificial hip joint (7) 65 years of age or older: (8) Gastric reflux: CODE(S): K21.9 - Gastro-esophageal reflux disease without esophagitis (9) Arthritis: CODE(S): M19.90 - Unspecified osteoarthritis, unspecified site (10) History of IBS: CODE(S): Z87.19 - Personal history of other diseases of the digestive system (11) Former smoker: CODE(S): Z87.891 - Personal history of nicotine dependence (12) Hx of skin cancer, basal cell: CODE(S): Z85.828 - Personal history of other malignant neoplasm of skin (13) Bronchiectasis: CODE(S): J47.9 - Bronchiectasis, uncomplicated (14) History of back surgery: CODE(S): Z98.890 - Other specified postprocedural states (15) History of hydrocelectomy: CODE(S): Z98.890 - Other specified postprocedural states (16) History of hip surgery: CODE(S): Z98.890 - Other specified postprocedural states (17) Hypertension: CODE(S): I10 - Essential (primary) hypertension PLAN: Plan This is a 74-year-old male with a traumatic wound on his left pretibial surface. The injury occurred on April 28, 2025, when he impacted some downed tree branches against his leg. We are to continue the use of collagen hydrogel topically to the wound on a daily basis. The patient has been instructed in the appropriate means of application. The patient has been instructed to wash the area with antimicrobial soap on a daily basis as well. The patient has been counseled to elevate his lower extremities as much as possible to avoid swelling and edema. He is to avoid prolonged idle sitting. Activity has been encouraged. A double Tubigrip compression sleeve is to be donned daily. The patient has been encouraged to optimize his nutritional intake. The patient will be scheduled to follow-up in 1 week for reevaluation. Total time: 22 minutes
[2025-06-24 10:17] VITALS: BP 145/83; PULSE 77; RESP 16; TEMP 36.3
--- NOTE | 2025-06-24 12:58 | PCM.WC.HP ---
History of Present Illness Date of Service: 06/24/25 Chief Complaint: Left pretibial wound History of Wound: This is a 74-year-old male who likes to cut his own trees and do his own yard work. His injury occurred when his left leg impacted against some downed branches. He has a history of similar traumatic wounds in his lower extremities in the past. The patient's current wound is located on his left pretibial surface. The current traumatic wound occurred on April 28, 2025. The patient had been cared for by other providers at the [facility] in the past, and records were reviewed. The patient had been cleansing his wound with hydrogen peroxide. At initial presentation, there was no sign of infection, no fevers or chills, etc. 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 He claims to be active. He denies swelling in his lower extremities. The patient is not a smoker. He is not diabetic. He has a history of acute superficial thrombophlebitis in the left great saphenous vein, diagnosed in December 2023. A noninvasive lower extremity arterial study performed in December 2023 revealed normal arterial flow at ankle level bilaterally, and at digital level on the right. 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 The patient also has a history of pulmonary embolism which was diagnosed during the COVID era. 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 History of pulmonary embolism Gastric reflux Wears hearing aid Wears glasses Cancer Alcohol use Walker as ambulation aid Ambulates with cane Arthritis Pulmonary embolism Restless legs Back pain History of IBS Former smoker Shortness of breath on exertion History of edema History of echocardiogram Hx of skin cancer, basal cell Bronchiectasis COVID-19 Home Medications Medication Instructions Recorded Last Taken Type albuterol sulfate 90 mcg/actuation 1 - 2 puff IH DAILY PRN SOB 10/19/16 08/01/22 History aerosol inhaler (Proventil HFA) budesonide-formoterol HFA 160 1 puff inhalation BID breathing 10/19/16 08/01/22 History mcg-4.5 mcg/actuation aerosol inhaler (Symbicort) guaifenesin 1,200 mg tablet, 1,200 mg PO BID 06/20/22 Unknown History extended release 12 hr (Mucinex) acetaminophen 500 mg tablet 1,000 mg (2 x 500 mg) PO Q8 30 08/02/22 Unknown Rx days #180 tabs ascorbic acid (vitamin C) 1,000 mg 1,000 mg PO DAILY 10/03/23 Unknown History tablet,extended release (C Complex) cholecalciferol (vitamin D3) 325 325 mcg PO QWEEK 10/03/23 Unknown History mcg (13,000 unit) capsule cyanocobalamin (vitamin B-12) 1,000 mcg PO DAILY 10/03/23 Unknown History 1,000 mcg tablet (Vitamin B-12) ferrous sulfate 325 mg (65 mg 325 mg PO DAILY 10/03/23 Unknown History iron) tablet (FeroSul) diphenhydramine HCl 50 mg capsule 50 mg PO BID PRN allergy symptoms 01/24/24 Unknown History aspirin 81 mg capsule 81 mg PO DAILY 05/21/25 Unknown History telmisartan 20 mg tablet 20 mg PO DAILY 05/21/25 Unknown History Allergy/AdvReac Type Severity Reaction Status Date / Time gabapentin Allergy Rash Verified 09/17/24 11:05 Family History Other Colon cancer Heart disease Surgical History Hx of colonoscopy History of hydrocelectomy History of back surgery History of hip surgery Social History Smoking Status: Never smoker Vital Signs Vital Signs Vital Signs: 06/24/25 10:17 Temperature 97.3 F L Temperature Source Temporal Pulse Rate 77 Respiratory Rate 16 Blood Pressure 145/83 H Blood Pressure Mean 103 Blood Pressure Source Monitor Blood Pressure Position Sitting Oxygen Delivery Method Room Air Physical Exam Const alert, oriented x3, no apparent distress, average body habitus, no limitations and well nourished Constitutional Narrative: The patient's BMI is 32.6. General Appearance: cooperative, comfortable, well kempt and well developed Orientation / Consciousness: awake, oriented to person, oriented to place and oriented to time Exam Limitations: no limitations HEENT normocephalic and head/scalp atraumatic Head and Scalp: normal to inspection, normocephalic and atraumatic Face and Sinus: normal facial exam Nose: external nose normal External Ear: external ears normal Eyes EOMs intact bilaterally General Eye: normal appearance of both eyes Neck full ROM Resp normal respiratory effort, normal air movement, no retractions and no use of accessory muscles Effort and Inspection: able to speak in complete sentences Extremity no calf tenderness General Extremity: Negative for clubbing or cyanosis Skin Wound Narrative: A wound is noted on the patient's left pretibial surface. There is no sign of infection or cellulitis. The wound is full-thickness in nature, extending through all layers of the dermis and into the subcutaneous tissues. Dimensions are documented elsewhere. The wound continues to diminish in size. Wound margins are well beveled. The wound is generally pink and healthy in appearance, with a small amount of bioburden. No significant swelling is noted in the patient's left lower extremity. Neuro oriented x3, CN's II-XII intact bilaterally, moves all extremities, no focal motor deficits and no sensory deficits noted Sensorium / Orientation: awake, alert, oriented to person, oriented to place and oriented to time Speech: speech normal Psych Appearance: grossly normal and appropriate Attitude: calm Activity / Motor Behavior: appropriate eye contact Speech: normal speech Mood & Affect: euthymic mood Thought Process: normal thought process Attention / Concentration: attention grossly intact Debridement Note Debridement Note Wound debrided: Left pretibial wound Laterality: Left Type of Debridement: Excisional debridement Anesthesia Used: 5% Lidocaine Gel Depth: Down to and including healthy tissue and in the subcutaneous layer Percentage of wound debrided: 100 Instrument Used: 3mm curette Tissue Removed: Bioburden Severity: Fat Layer Exposed Amount of bleeding with debridement: Mild Bleeding Controlled with: Compression and gauze Patient tolerated procedure: Patient tolerated procedure well Post-Debridement Measurements and Additional Note: Post-Debridement Measurements/Treatment KIRSTY - Nurse 1 - General Ulcer Assessment Start: 06/03/25 10:49 Freq: Status: Active Protocol: MIKAELA Activity Type Activity Date Activity User E-sign Co-sign Detail Recorded Client Recorded Date Recorded By Document 06/03/25 10:50 JF [id number] 06/03/25 10:54 JF Document 06/10/25 09:56 RB [id number] 06/10/25 09:58 RB Document 06/17/25 09:29 TS [id number] 06/17/25 09:37 TS Document 06/24/25 10:17 TS [id number] 06/24/25 10:28 TS 06/03/25 06/10/25 06/17/25 10:50 09:56 09:29 - Today's Visit Information Type of service Follow-up Visit Follow-up Visit Follow-up Visit (Physician/[facility] [facility]OVERING (Physician/[facility]OVERING (Physician/M[facility] [facility]OVER[facility] ) ) ) Arrival Mode Ambulatory Ambulatory Ambulatory Transfer Assistance None None Patient Identification Verified (Name & Yes Yes Yes ) Patient Requires Transmission-Based No No No Precautions Vital Signs Temperature (97.8 F-99.1 F) 97.6 F L 97 F L 96.8 F L Temperature Source Temporal Temporal Temporal Pulse Rate (60-100) 66 75 57 L Pulse Location Monitor Monitor Monitor Respiratory Rate (12-18) 18 18 18 Respiratory rate source Observation Observation Observation Oxygen Delivery Method Room Air FIO2 % 97 Blood Pressure (90/60-120/80) 165/84 H 154/89 H 180/79 H Blood Pressure Mean 111 110 112 Source Monitor Monitor Monitor Position Sitting Sitting Sitting Blood Pressure Location Right Arm Left Arm Left Arm History Since Last Visit- (Skip if this is Patient's initial visit) Have you changed medications since your Yes No No last visit? Any new allergies or adverse reactions No No No Had a fall/change in ADL's that may No No No increase risk of falls Signs or symptoms of abuse and/or No No No neglect since last visit Have you been in the hospital since your No No No last visit? Has dressing in place as prescribed Yes Yes Yes Has compression in place as prescribed N/A Yes No Has offloadiing in place as prescribed N/A N/A N/A Experienced any changes in pain level or No No No management Left Footwear Regular Shoe Regular Shoe Regular Shoe Right Footwear Regular Shoe Regular Shoe Regular Shoe Pain Scale: 0-10 Numeric Is Patient Pain Free? Yes Yes Yes 06/24/25 10:17 - Today's Visit Information Type of service Arrival Mode Transfer Assistance Patient Identification Verified (Name & ) Patient Requires Transmission-Based Precautions Vital Signs Temperature (97.8 F-99.1 F) 97.3 F L Temperature Source Temporal Pulse Rate (60-100) 77 Pulse Location Monitor Respiratory Rate (12-18) 16 Respiratory rate source Observation Oxygen Delivery Method Room Air FIO2 % Blood Pressure (90/60-120/80) 145/83 H Blood Pressure Mean 103 Source Monitor Position Sitting Blood Pressure Location History Since Last Visit- (Skip if this is Patient's initial visit) Have you changed medications since your No last visit? Any new allergies or adverse reactions No Had a fall/change in ADL's that may No increase risk of falls Signs or symptoms of abuse and/or No neglect since last visit Have you been in the hospital since your No last visit? Has dressing in place as prescribed No Has compression in place as prescribed No Has offloadiing in place as prescribed N/A Experienced any changes in pain level or No management Left Footwear Regular Shoe Right Footwear Regular Shoe Pain Scale: 0-10 Numeric Is Patient Pain Free? Yes WC - Nurse 1 - General Ulcer Measurement Start: 06/03/25 10:49 Freq: Status: Active Protocol: Activity Type Activity Date Activity User E-sign Co-sign Detail Recorded Client Recorded Date Recorded By Document 06/03/25 10:50 JF [id number] 06/03/25 10:54 JF Document 06/10/25 09:56 RB [id number] 06/10/25 09:58 RB Document 06/17/25 09:29 TS [id number] 06/17/25 09:37 TS Document 06/24/25 10:17 TS [id number] 06/24/25 10:28 TS 06/03/25 06/10/25 06/17/25 10:50 09:56 09:29 Wound Center Nurse 1 2. LLE -Combined with other wound No No No -Current Size (cm) - Length 0.7 0.5 0.1 -Current Size (cm) - Width 0.3 0.2 0.1 -Current Size (cm) - Depth 0.2 0.1 0.1 -Total Square Cm 0.21 0.10 0.01 -Date of Last Picture (Recall this field) -Photo Taken Yes Yes Yes -Epithelialization Medium 34-66% Medium 34-66% -Tunneling No No No -Undermining/Tunneling No No No -Circular Undermining No No No -Exudate Amt None Present Medium None Present -Exudate Type Serosanguineous -Wound Margin Indistinct, Non Distinct, Distinct, -Visible Outline Outline Attached Attached -Granulation Amt Small (1-33%) Medium (34-66%) Small (1-33%) -Granulation Quality Enhaut Enhaut Enhaut -Slough/Fibrin Yes Yes Yes -Necrosis Amt Medium (34-66%) Medium (34-66%) Medium (34-66%) -Necrotic Tissue Type Adherent Slough Adherent Slough Adherent Slough -Structure Exposed N/A N/A N/A -Texture (Astrid-wound Skin Appearance) Assessed, Assessed No Abnormality Localized Edema -Moisture (Astrid-wound Skin Appearance) Assessed,Dry/ Assessed No Abnormality Scaly -Color (Astrid-wound Skin Appearance) Assessed Assessed, Hemosiderin Hemosiderin Staining Staining -Temperature (Astrid-wound Skin No Abnormality No Abnormality Appearance) (Pt Warm) (Pt Warm) -Tenderness on Palpation (Astrid-wound No No Skin Appearance) -Ulcer Cleansing Rinsed/ Irrigated with Saline -Foul Odor after Cleansing No No No -Anesthetic Used 5% Lidocaine 5% Lidocaine 5% Lidocaine Gel Gel Gel Lower Limb Edema Present Yes Yes No Left Calf (cm) 41.0 41 42.1 Point of measurement (cm from the medial instep) Left Ankle (cm) 23.7 23.7 24.1 06/24/25 10:17 Wound Center Nurse 1 2. LLE -Combined with other wound No -Current Size (cm) - Length 0.5 -Current Size (cm) - Width 0.3 -Current Size (cm) - Depth 0.1 -Total Square Cm 0.15 -Date of Last Picture (Recall this 06/24/25 field) -Photo Taken Yes -Epithelialization Medium 34-66% -Tunneling No -Undermining/Tunneling No -Circular Undermining No -Exudate Amt None Present -Exudate Type -Wound Margin Indistinct, Non -Visible -Granulation Amt None Present (0 %) -Granulation Quality -Slough/Fibrin Yes -Necrosis Amt Large (67-100%) -Necrotic Tissue Type Adherent Slough -Structure Exposed None/Limited to Skin Breakdown -Texture (Astrid-wound Skin Appearance) Assessed -Moisture (Astrid-wound Skin Appearance) Assessed -Color (Astrid-wound Skin Appearance) Assessed -Temperature (Astrid-wound Skin No Abnormality Appearance) (Pt Warm) -Tenderness on Palpation (Astrid-wound No Skin Appearance) -Ulcer Cleansing Rinsed/ Irrigated with Saline -Foul Odor after Cleansing No -Anesthetic Used 5% Lidocaine Gel Lower Limb Edema Present No Left Calf (cm) Point of measurement (cm from the medial 41.5 instep) Left Ankle (cm) 25.1 WC - Nurse 2 - General Ulcer CM Notes Start: 06/03/25 10:49 Freq: Status: Active Protocol: Activity Type Activity Date Activity User E-sign Co-sign Detail Recorded Client Recorded Date Recorded By Document 06/03/25 11:07 DS [id number] 06/03/25 11:10 DS Document 06/10/25 10:10 DS [id number] 06/10/25 10:13 DS Document 06/17/25 09:44 GM [id number] 06/17/25 09:47 GM Document 06/24/25 10:36 DS [id number] 06/24/25 10:38 DS 06/03/25 06/10/25 06/17/25 11:07 10:10 09:44 Wound Center Nurse 2 2. LLE -Time 11:07 10:10 09:44 -Correct Patient Yes Yes Yes -Correct Side, Site, Position Yes Yes Yes -Correct Procedure Yes Yes Yes -Procedure Performed Yes Yes Yes -Type of Procedure Debridement Debridement Debridement -Clinical Debridement Subcutaneous Subcutaneous Subcutaneous -Tissue Removed Subcutaneous Subcutaneous Subcutaneous -Post Debridement (cm) - Length 0.9 0.5 0.6 -Post Debridement (cm) - Width 0.3 0.4 0.3 -Post Debridement (cm) - Depth 0.1 0.1 0.1 -Total Square (Post) (cm) 0.27 0.20 0.18 -Area of Debridement (cm) - Length 0.9 0.5 0.6 -Area of Debridement (cm) - Width 0.3 0.4 0.3 -Total Square (Area) (cm) 0.27 0.20 0.18 -Tunneling No No No -Undermining/Tunneling No No No -Circular Undermining No No No -Wound/Ulcer Outcome Not Healed Not Healed Not Healed -Ulcer Cleansing gauze gauze Rinsed/ Irrigated with Saline -Foul Odor after Cleansing No No No -Bioengineered Tissue No No No -Bleeding Controlled with Pressure Pressure Pressure -Treatment Response Procedure Procedure Procedure Tolerated Well Tolerated Well Tolerated Well -Offloading No -Debridement - Subq, 1st 20sq cm Yes Yes Yes Pain Scale: 0-10 Numeric Is Patient Pain Free? Yes Yes Yes 06/24/25 10:36 Wound Center Nurse 2 2. LLE -Time 10:36 -Correct Patient Yes -Correct Side, Site, Position Yes -Correct Procedure Yes -Procedure Performed Yes -Type of Procedure Debridement -Clinical Debridement Subcutaneous -Tissue Removed Subcutaneous -Post Debridement (cm) - Length 0.4 -Post Debridement (cm) - Width 0.3 -Post Debridement (cm) - Depth 0.1 -Total Square (Post) (cm) 0.12 -Area of Debridement (cm) - Length 0.4 -Area of Debridement (cm) - Width 0.3 -Total Square (Area) (cm) 0.12 -Tunneling No -Undermining/Tunneling No -Circular Undermining No -Wound/Ulcer Outcome Not Healed -Ulcer Cleansing Rinsed/ Irrigated with Saline -Foul Odor after Cleansing No -Bioengineered Tissue No -Bleeding Controlled with Pressure -Treatment Response Procedure Tolerated Well -Offloading -Debridement - Subq, 1st 20sq cm Yes Pain Scale: 0-10 Numeric Is Patient Pain Free? Yes - Nurse 3 - General Ulcer D/C NN Start: 06/03/25 10:49 Freq: Status: Active Protocol: Activity Type Activity Date Activity User E-sign Co-sign Detail Recorded Client Recorded Date Recorded By Document 06/03/25 11:15 DS [id number] 06/03/25 11:20 DS Document 06/10/25 10:33 [id number] 06/10/25 10:33 Document 06/17/25 09:53 [id number] 06/17/25 09:54 Document 06/24/25 10:47 [id number] 06/24/25 10:48 06/03/25 06/10/25 06/17/25 11:15 10:33 09:53 Wound Care Center Nurse 3 2. LLE -Ulcer Cleansing gauze Rinsed/ Not Cleansed Irrigated with Saline -Foul Odor after Cleansing -Primary Dressing Applied C Hydrogel, Silicone Border C Hydrogel, Silicone Border Foam 4x4 Optilok 5x5 1/2 Foam 4x4 -Other Dressing hydrogel -Hydrogel 1 1 -Optilok 5x5 1/2 1 -Silicone Border Foam 4x4 1 1 LLE -Lotion applied to leg before No compression wrap -Tubular Bandage Double Layer Double Layer Double Layer -Size of Tubigrip Used Size E Size E Size E -Size E ($) 2 2 2 Pain Scale: 0-10 Numeric Is Patient Pain Free? Yes Yes Yes WC - Visit Discharge Discharge Condition Stable Stable Stable Ambulatory Status Ambulatory Ambulatory Ambulatory Transportation Private Auto Private Auto Private Auto Medication Reconcilliation completed & Yes provided to patient/care provider Clinical Summary of Care Provided Yes Notes: 06/24/25 10:47 Wound Care Center Nurse 3 2. LLE -Ulcer Cleansing Rinsed/ Irrigated with Saline -Foul Odor after Cleansing No -Primary Dressing Applied C Hydrogel, Silicone Border Foam 4x4 -Other Dressing -Hydrogel 1 -Optilok 5x5 1/2 -Silicone Border Foam 4x4 1 LLE -Lotion applied to leg before compression wrap -Tubular Bandage -Size of Tubigrip Used -Size E ($) Pain Scale: 0-10 Numeric Is Patient Pain Free? Yes WC - Visit Discharge Discharge Condition Stable Ambulatory Status Ambulatory Transportation Private Auto Medication Reconcilliation completed & Yes provided to patient/care provider Clinical Summary of Care Provided Yes Notes: Patient has compression tubigrips at home and has several pairs so he stated he will indeed put them on when he goes home after this . 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: CODE(S): L97.902 - Non-pressure chronic ulcer of unspecified part of unspecified lower leg with fat layer exposed QUALIFIERS: Laterality: left Qualified Code(s): L97.922 - Non-pressure chronic ulcer of unspecified part of left lower leg with fat layer exposed (2) Puncture wound of left lower leg: CODE(S): S81.832A - Puncture wound without foreign body, left lower leg, initial encounter QUALIFIERS: Encounter type: subsequent encounter Qualified Code(s): S81.832D - Puncture wound without foreign body, left lower leg, subsequent encounter (3) History of edema: CODE(S): Z87.898 - Personal history of other specified conditions (4) History of pulmonary embolism: CODE(S): Z86.711 - Personal history of pulmonary embolism (5) Venous insufficiency (chronic) (peripheral): CODE(S): I87.2 - Venous insufficiency (chronic) (peripheral) (6) S/P total left hip arthroplasty: CODE(S): Z96.642 - Presence of left artificial hip joint (7) 65 years of age or older: (8) Gastric reflux: CODE(S): K21.9 - Gastro-esophageal reflux disease without esophagitis (9) Arthritis: CODE(S): M19.90 - Unspecified osteoarthritis, unspecified site (10) History of IBS: CODE(S): Z87.19 - Personal history of other diseases of the digestive system (11) Former smoker: CODE(S): Z87.891 - Personal history of nicotine dependence (12) Hx of skin cancer, basal cell: CODE(S): Z85.828 - Personal history of other malignant neoplasm of skin (13) Bronchiectasis: CODE(S): J47.9 - Bronchiectasis, uncomplicated (14) History of back surgery: CODE(S): Z98.890 - Other specified postprocedural states (15) History of hydrocelectomy: CODE(S): Z98.890 - Other specified postprocedural states (16) History of hip surgery: CODE(S): Z98.890 - Other specified postprocedural states (17) Hypertension: CODE(S): I10 - Essential (primary) hypertension PLAN: Plan This is a 74-year-old male with a traumatic wound on his left pretibial surface. The injury occurred on April 28, 2025, when he impacted some downed tree branches against his leg. We are to continue the use of collagen hydrogel topically to the wound on a daily basis. The patient has been instructed in the appropriate means of application. The patient has been instructed to wash the area with antimicrobial soap on a daily basis as well. The patient has been counseled to elevate his lower extremities as much as possible to avoid swelling and edema. He is to avoid prolonged idle sitting. Activity has been encouraged. A double Tubigrip compression sleeve is to be donned daily. The patient has been encouraged to optimize his nutritional intake. The wound is nearly healed, and the patient will be scheduled to follow-up in 2 weeks for reevaluation. Total time: 24 minutes
--- NOTE | 2025-06-26 10:37 | WC ---
PHOTO-LEFT REYNA 06/24/25
== END 2025-06-27 23:59 | disposition home or self-care (01) ==
LOC: WC 10:15
PROVIDERS: PCP Family Medicine; Referring Provider Family Medicine; Visit Provider Surgery
DX: S81.832A Puncture wound without foreign body, left lower leg, initial encounter (principal); W22.8XXA Striking against or struck by other objects, initial encounter; Z86.711 Personal history of pulmonary embolism; I87.2 Venous insufficiency (chronic) (peripheral); K21.9 Gastro-esophageal reflux disease without esophagitis; Z85.828 Personal history of other malignant neoplasm of skin; I10 Essential (primary) hypertension; Z79.899 Other long term (current) drug therapy
CPT/HCPCS: 11042

== ENCOUNTER 2025-07-08 10:08 | Outpatient (RCR) | payer MEDICARE, OTHER, SELFPAY ==
[2025-07-08 10:15] VITALS: BP 156/92; PULSE 70; RESP 16; TEMP 36.1
--- NOTE | 2025-07-08 15:44 | HP.PCM_ITS ---
History of Present Illness Date of Service: 07/08/25 Chief Complaint: Left pretibial wound History of Wound: This is a 74-year-old male who likes to cut his own trees and do his own yard work. His injury occurred when his left leg impacted against some downed branches. He has a history of similar traumatic wounds in his lower extremities in the past. The patient's current wound is located on his left pretibial surface. The current traumatic wound occurred on April 28, 2025. The patient had been cared for by other providers at the [facility] in the past, and records were reviewed. The patient had been cleansing his wound with hydrogen peroxide. At initial presentation, there was no sign of infection, no fevers or chills, etc. 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 He claims to be active. He denies swelling in his lower extremities. The patient is not a smoker. He is not diabetic. He has a history of acute superficial thrombophlebitis in the left great saphenous vein, diagnosed in December 2023. A noninvasive lower extremity arterial study performed in December 2023 revealed normal arterial flow at ankle level bilaterally, and at digital level on the right. 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 The patient also has a history of pulmonary embolism which was diagnosed during the COVID era. 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 History of pulmonary embolism Gastric reflux Wears hearing aid Wears glasses Cancer Alcohol use Walker as ambulation aid Ambulates with cane Arthritis Pulmonary embolism Restless legs Back pain History of IBS Former smoker Shortness of breath on exertion History of edema History of echocardiogram Hx of skin cancer, basal cell Bronchiectasis COVID-19 Home Medications Medication Instructions Recorded Last Taken Type albuterol sulfate 90 mcg/actuation 1 - 2 puff IH DAILY PRN SOB 10/19/16 08/01/22 History aerosol inhaler (Proventil HFA) budesonide-formoterol HFA 160 1 puff inhalation BID br eathing 10/19/16 08/01/22 History mcg-4.5 mcg/actuation aerosol inhaler (Symbicort) guaifenesin 1,200 mg tablet, 1,200 mg PO BID 06/20/22 Unknown History extended release 12 hr (Mucinex) acetaminophen 500 mg tablet 1,000 mg (2 x 500 mg) PO Q 8 30 08/02/22 Unknown Rx days #180 tabs ascorbic acid (vitamin C) 1,000 mg 1,000 mg PO DAILY 0 10/03/23 Unknown History tablet,extended release (C Complex) cholecalciferol (vitamin D3) 325 325 mcg PO QWEEK 02/18 Unknown History mcg (13,000 unit) capsule cyanocobalamin (vitamin B-12) 1,000 mcg PO DAILY 10/03 Unknown History 1,000 mcg tablet (Vitamin B-12) ferrous sulfate 325 mg (65 mg 325 mg PO DAILY 10/03/23 Unknown History iron) tablet (FeroSul) diphenhydramine HCl 50 mg capsule 50 mg PO BID PRN all ergy symptoms 01/24/24 U nknown History aspirin 81 mg capsule 81 mg PO DAILY 05/21/25 Unkn own History telmisartan 20 mg tablet 20 mg PO DAILY 05/21/25 Unkn own History Allergy/AdvReac Type Severity Reaction Status Date / Time gabapentin Allergy Rash Verified 09/17/24 11:05 Family History Other Colon cancer Heart disease Surgical History Hx of colonoscopy History of hydrocelectomy History of back surgery History of hip surgery Social History Smoking Status: Never smoker Vital Signs Vital Signs Vital Signs: 07/08/25 10:15 Temperature 97.0 F L Temperature Source Temporal Pulse Rate 70 Respiratory Rate 16 Blood Pressure 156/92 H Blood Pressure Mean 113 Blood Pressure Source Monitor Blood Pressure Position Semi-Fowlers Blood Pressure Location Left Arm Physical Exam Const alert, oriented x3, no apparent distress, average body habitus, no limitations and well nourished Constitutional Narrative: The patient's BMI is 32.6. General Appearance: cooperative, comfortable, well kempt and well developed Orientation / Consciousness: awake, oriented to person, oriented to place and oriented to time Exam Limitations: no limitations HEENT normocephalic and head/scalp atraumatic Head and Scalp: normal to inspection, normocephalic and atraumatic Face and Sinus: normal facial exam Nose: external nose normal External Ear: external ears normal Eyes EOMs intact bilaterally General Eye: normal appearance of both eyes Neck full ROM Resp normal respiratory effort, normal air movement, no retractions and no use of accessory muscles Effort and Inspection: able to speak in complete sentences Extremity no calf tenderness General Extremity: Negative for clubbing or cyanosis Skin Wound Narrative: A wound is noted on the patient's left pretibial surface. There is no sign of infection or cellulitis. The wound is full-thickness in nature, extending through all layers of the dermis and into the subcutaneous tissues. Dimensions are documented elsewhere. The wound continues to diminish in size, and is now quite small. Wound margins are well beveled. The wound is generally pink and healthy in appearance, with a small amount of bioburden. No significant swelling is noted in the patient's left lower extremity. Neuro oriented x3, CN's II-XII intact bilaterally, moves all extremities, no focal motor deficits and no sensory deficits noted Sensorium / Orientation: awake, alert, oriented to person, oriented to place and oriented to time Speech: speech normal Psych Appearance: grossly normal and appropriate Attitude: calm Activity / Motor Behavior: appropriate eye contact Speech: normal speech Mood & Affect: euthymic mood Thought Process: normal thought process Attention / Concentration: attention grossly intact Debridement Note Debridement Note Wound debrided: Left pretibial wound Laterality: Left Type of Debridement: Excisional debridement Anesthesia Used: 5% Lidocaine Gel Depth: Down to and including healthy tissue and in the subcutaneous layer Percentage of wound debrided: 100 Instrument Used: 3mm curette Tissue Removed: Bioburden Severity: Fat Layer Exposed Amount of bleeding with debridement: Mild Bleeding Controlled with: Compression and gauze Patient tolerated procedure: Patient tolerated procedure well Post-Debridement Measurements and Additional Note: Post-Debridement Measurements/Treatment KIRSTY - Nurse 1 - General Ulcer Assessment Start: 07/08/25 10:13 Freq: Status: Active Protocol: MIKAELA Activity Type Activity Date Activity User E-sign Co-sign Detail Recorded Client Recorded Date Recorded By Document 07/08/25 10:15 MARIAMA [id number] 07/08/25 10:18 MARIAMA 07/08/25 10:15 KIRSTY - Today's Visit Information Type of service Follow-up Visit (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 Any new allergies or adverse reactions No Had a fall/change in ADL's that may No increase risk of falls Signs or symptoms of abuse and/or No neglect since last visit Have you been in the hospital since your No last visit? Has dressing in place as prescribed Yes Has compression in place as prescribed No Has offloadiing in place as prescribed N/A Experienced any changes in pain level or No management Left Footwear Regular Shoe Right Footwear Regular Shoe Pain Scale: 0-10 Numeric Is Patient Pain Free? Yes - Nurse 1 - General Ulcer Measurement Start: 07/08/25 10:13 Freq: Status: Active Protocol: Activity Type Activity Date Activity User E-sign Co-sign Detail Recorded Client Recorded Date Recorded By Document 07/08/25 10:15 MARIAMA [id number] 07/08/25 10:18 MARIAMA 07/08/25 10:15 Wound Center Nurse 1 2. LLE -Combined with other wound No -Current Size (cm) - Length 0.1 -Current Size (cm) - Width 0.1 -Current Size (cm) - Depth 0.1 -Total Square Cm 0.01 -Photo Taken Yes -Epithelialization Large 67-100% -Tunneling No -Undermining/Tunneling No -Circular Undermining No -Exudate Amt Small -Exudate Type Serosanguineous -Wound Margin Flat & Intact -Granulation Amt Large (67-100%) -Granulation Quality Red -Slough/Fibrin Yes -Necrosis Amt Small (1-33%) -Necrotic Tissue Type Adherent Slough -Structure Exposed N/A -Texture (Astrid-wound Skin Appearance) Assessed, Localized Edema -Moisture (Astrid-wound Skin Appearance) No Abnormality, Dry/Scaly -Color (Astrid-wound Skin Appearance) Assessed -Temperature (Astrid-wound Skin No Abnormality Appearance) (Pt Warm) -Tenderness on Palpation (Astrid-wound No Skin Appearance) -Ulcer Cleansing Rinsed/ Irrigated with Saline -Foul Odor after Cleansing No Lower Limb Edema Present NA WC - Nurse 2 - General Ulcer CM Notes Start: 07/08/25 10:13 Freq: Status: Active Protocol: Activity Type Activity Date Activity User E-sign Co-sign Detail Recorded Client Recorded Date Recorded By Document 07/08/25 10:34 DS [id number] 07/08/25 10:35 DS 07/08/25 10:34 Wound Center Nurse 2 2. LLE -Time 10:34 -Correct Patient Yes -Correct Side, Site, Position Yes -Correct Procedure Yes -Procedure Performed Yes -Type of Procedure Debridement -Clinical Debridement Subcutaneous -Tissue Removed Subcutaneous -Post Debridement (cm) - Length 0.4 -Post Debridement (cm) - Width 0.2 -Post Debridement (cm) - Depth 0.1 -Total Square (Post) (cm) 0.08 -Area of Debridement (cm) - Length 0.4 -Area of Debridement (cm) - Width 0.2 -Total Square (Area) (cm) 0.08 -Tunneling No -Undermining/Tunneling No -Circular Undermining No -Wound/Ulcer Outcome Not Healed -Ulcer Cleansing gauze -Foul Odor after Cleansing No -Bioengineered Tissue No -Bleeding Controlled with Pressure -Treatment Response Procedure Tolerated Well -Debridement - Subq, 1st 20sq cm Yes Pain Scale: 0-10 Numeric Is Patient Pain Free? Yes - Nurse 3 - General Ulcer D/C NN Start: 07/08/25 10:13 Freq: Status: Active Protocol: Activity Type Activity Date Activity User E-sign Co-sign Detail Recorded Client Recorded Date Recorded By Document 07/08/25 10:47 TS [id number] 07/08/25 10:50 TS 07/08/25 10:47 Wound Care Center Nurse 3 2. LLE -Ulcer Cleansing Rinsed/ Irrigated with Saline -Primary Dressing Applied C Hydrogel, Silicone Border Foam 4x4 -Hydrogel 0 -Silicone Border Foam 4x4 1 LLE -Tubular Bandage Double Layer -Size of Tubigrip Used Size E -Size E ($) 2 Pain Scale: 0-10 Numeric Is Patient Pain Free? 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: CODE(S): L97.902 - Non-pressure chronic ulcer of unspecified part of unspecified lower leg with fat layer exposed QUALIFIERS: Laterality: left Qualified Code(s): L97.922 - Non- pressure chronic ulcer of unspecified part of left lower leg with fat layer exposed (2) Puncture wound of left lower leg: CODE(S): S81.832A - Puncture wound without foreign body, left lower leg, initial encounter QUALIFIERS: Encounter type: subsequent encounter Qualified Code(s): S81.832D - Puncture wound without foreign body, left lower leg, subsequent encounter (3) History of edema: CODE(S): Z87.898 - Personal history of other specified conditions (4) History of pulmonary embolism: CODE(S): Z86.711 - Personal history of pulmonary embolism (5) Venous insufficiency (chronic) (peripheral): CODE(S): I87.2 - Venous insufficiency (chronic) (peripheral) (6) S/P total left hip arthroplasty: CODE(S): Z96.642 - Presence of left artificial hip joint (7) 65 years of age or older: (8) Gastric reflux: CODE(S): K21.9 - Gastro-esophageal reflux disease without esophagitis (9) Arthritis: CODE(S): M19.90 - Unspecified osteoarthritis, unspecified site (10) History of IBS: CODE(S): Z87.19 - Personal history of other diseases of the digestive system (11) Former smoker: CODE(S): Z87.891 - Personal history of nicotine dependence (12) Hx of skin cancer, basal cell: CODE(S): Z85.828 - Personal history of other malignant neoplasm of skin (13) Bronchiectasis: CODE(S): J47.9 - Bronchiectasis, uncomplicated (14) History of back surgery: CODE(S): Z98.890 - Other specified postprocedural states (15) History of hydrocelectomy: CODE(S): Z98.890 - Other specified postprocedural states (16) History of hip surgery: CODE(S): Z98.890 - Other specified postprocedural states (17) Hypertension: CODE(S): I10 - Essential (primary) hypertension PLAN: Plan This is a 74-year-old male with a traumatic wound on his left pretibial surface. The injury occurred on April 28, 2025, when he impacted some downed tree branches against his leg. We are to continue the use of collagen hydrogel topically to the wound on a daily basis. The patient has been instructed in the appropriate means of application. The patient has been instructed to wash the area with antimicrobial soap on a daily basis as well. The patient has been counseled to elevate his lower extremities as much as possible to avoid swelling and edema. He is to avoid prolonged idle sitting. Activity has been encouraged. A double Tubigrip compression sleeve is to be donned daily. The patient has been encouraged to optimize his nutritional intake. The wound is nearly healed, and the patient will be scheduled to follow-up in 2 weeks for reevaluation. If the patient notices that the wound is completely healed within 2 weeks, he is to contact this office to indicate as such, and to cancel his appointment, which would no longer be necessary. Total time: 22 minutes
--- NOTE | 2025-07-09 08:46 | WC ---
PHOTO-LEFT REYNA 07/08/25
== END 2025-07-23 12:48 | disposition home or self-care (01) ==
LOC: WC 10:08
PROVIDERS: PCP Family Medicine; Referring Provider Family Medicine; Visit Provider Surgery
DX: S81.832A Puncture wound without foreign body, left lower leg, initial encounter (principal); K21.9 Gastro-esophageal reflux disease without esophagitis; I10 Essential (primary) hypertension; Z87.891 Personal history of nicotine dependence; Z86.711 Personal history of pulmonary embolism; I87.2 Venous insufficiency (chronic) (peripheral); W22.8XXA Striking against or struck by other objects, initial encounter
CPT/HCPCS: 11042